=== PATIENT | male | born 1965 | race Two or more races ===

== ENCOUNTER 2016-09-19 00:16 | Emergency (ER) | payer OTHER ==
[2016-09-19 00:28] VITALS: BP 157/90; PULSE 81; TEMP 98.1; BMI 49.5
[2016-09-19] MEDS ORDERED: traMADol HCL 50 MG TABLET PO ONE (01:29)
[2016-09-19] MEDS ORDERED: ACETAMINOPHEN 500 MG TABLET (FP) PO ONE (01:32)
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
[2016-09-19] MEDS ORDERED: traMADol HCL 50 MG TABLET ONE (02:18)
[2016-09-19] MEDS ORDERED: ACETAMINOPHEN 325 MG TABLET (FP) ONE (02:18)
== END 2016-09-19 03:10 | disposition home or self-care (01) ==
LOC: JER 00:16
DX: M25.551 Pain in right hip (principal); E11.22 Type 2 diabetes mellitus with diabetic chronic kidney disease; N18.9 Chronic kidney disease, unspecified; G89.29 Other chronic pain; E66.01 Morbid (severe) obesity due to excess calories; Z68.42 Body mass index [BMI] 45.0-49.9, adult; I50.9 Heart failure, unspecified
CPT/HCPCS: 73523-TC; 99281-25

== ENCOUNTER 2016-09-20 10:20 | Emergency (ER) | payer OTHER ==
[2016-09-20 10:33] VITALS: TEMP 98; BMI 49.5
--- NOTE | 2016-09-20 10:53 | PDOC ---
History of Present Illness - General History Source: Patient Exam Limitations: No Limitations - History of Present Illness Initial Comments: 09/20/16 10:55 The patient is a 50-year-old man, with a significant past medical history of asthma, hypertension, hypercholesterolemia, acute renal insufficiency, stage II chronic kidney disease (not on hemodialysis), congestive heart failure, insulin dependent diabetes mellitus and diabetic neuropathy who presents to the emergency department for further evaluation of hip pain for the past two weeks. No fall, trauma, strenuous activity. He states that his discomfort started out as a soreness that progressively worsened into pain. Patient state that he was in this ED 2 days ago for hip pain and was given Tramadol and discharge. He states that hours after discharge, he was walking to the bathroom of his home, where he felt lightheaded and his left leg gave up and he fell. No head injury, loss of consciousness. His right hip pain is exacerbated when walking and elevating his right leg and his pain is alleviated when lying supine. Does not feel an dizziness now. No fever, chills, weakness, tingling sensations to his extremities. No cough, shortness of breath No chest pain, lightheadedness, dizziness No abdominal pain, nausea, vomiting, diarrhea No urinary complaints. <Jhoana Hendrix - Last Filed: 09/20/16 13:45> <Ozzy Arce - Last Filed: 09/20/16 14:11> - General Chief Complaint: Pain Stated Complaint: HIP PAIN Time Seen by Provider: 09/20/16 10:49 Past History <Jhoana Hendrix - Last Filed: 09/20/16 13:45> - Past Medical History Anemia: No Asthma: Yes Cancer: No Cardiac Disorders: No CVA: No COPD: No CHF: Yes Dementia: No Diabetes: Yes (IDDM/ NEUROPATHY OF ASHLEY FEET) GI Disorders: No Disorders: Yes (ACUTE RENAL INSUFFICIENCY) HTN: Yes Hypercholesterolemia: Yes Liver Disease: No Suicide Attempt (Hx): No Seizures: No Thyroid Disease: No - Surgical History Abdominal Surgery: No Appendectomy: No Cardiac Surgery: No Cholecystectomy: No Lung Surgery: No Neurologic Surgery: No Orthopedic Surgery: Yes (R knee surgery) - Immunization History Immunization Up to Date: No - Psycho/Social/Smoking Cessation Hx Anxiety: No Suicidal Ideation: No Smoking Status: No Smoking History: Never smoked Have you smoked in the past 12 months: No Number of Cigarettes Smoked Daily: 0 Cigars Per Day: 0 Information on smoking cessation initiated: No Hx Alcohol Use: No Drug/Substance Use Hx: No Substance Use Type: None Hx Substance Use Treatment: No <Ozzy Arce - Last Filed: 09/20/16 14:11> - Past Medical History Allergies/Adverse Reactions: Allergies Allergy/AdvReac Type Severity Reaction Status Date / Time No Known Allergies Allergy Verified 09/20/16 10:33 Home Medications: Ambulatory Orders Aspirin [ASA -] 81 mg PO DAILY 07/27/14 Atorvastatin Calcium 40 mg PO HS 04/05/15 Furosemide [Lasix -] 40 mg PO DAILY #30 tablet 07/31/16 Insulin Glargine,Hum.rec.anlog [Toujeo Solostar] 100 unit SQ DAILY #1 insuln.pen 07/31/16 Insulin Lispro [Humalog Kwikpen U-100] 100 unit SQ TID #1 insuln.pen 07/31/16 Losartan Potassium 25 mg PO DAILY #0 07/31/16 Acetaminophen [Tylenol -] 1,000 mg PO Q6H #30 tablet 09/19/16 Oxycodone HCl/Acetaminophen [Percocet 5-325 mg Tablet] 1 tab PO Q4H #12 tablet MDD 6mg 09/19/16 Tramadol HCl 50 mg PO BID PRN #14 tablet MDD 2 09/20/16 Review of Systems - Review of Systems Able to Perform ROS?: Yes Comments:: 09/20/16 10:56 CONSTITUTIONAL: No reported: Fever, Chills, Diaphoresis, Generalized Weakness, Malaise, Loss of Appetite HEENT: No reported: Rhinorrhea, Nasal Congestion, Throat Pain, Throat Swelling, Difficulty Swallowing, Mouth Swelling, Ear Pain, Eye Pain, Visual Changes CARDIOVASCULAR: Reported: Lightheadedness. No reported: Chest Pain, Syncope, Palpitations, Irregular Heart Rate, Peripheral Edema RESPIRATORY: No reported: Cough, Shortness of Breath, SOB with Exertion, Orthopnea, Wheezing , Stridor, Hemoptysis GASTROINTESTINAL: Reported: Nausea. No reported: Abdominal pain, Abdominal Distension, Vomiting, Diarrhea, Constipation, Melena, Hematochezia GENITOURINARY: No reported: Dysuria, Frequency, Urgency, Hesitancy, Flank Pain, Genital Pain MUSCULOSKELETAL: Reported: Chronic Back Pain. Neck Pain. Hip Pain. No reported: Joint Swelling. SKIN: No reported: Rash, Itching, Pallor HEMEATOLOGIC/IMMUNOLOGIC: No reported: Easy Bleeding, Easy Bruising, Lymphadenopathy, Frequent infections ENDOCRINE: No reported: Unexplained Weight Gain, Unexplained Weight Loss, Heat Intolerance , Cold Intolerance NEUROLOGIC: No reported: Headache, Focal Weakness, Paresthesias, Vertigo, Lightheadedness, Unsteady Gait, Seizure, Mental Status Changes, Incontinence PSYCHIATRIC: No reported: Anxiety, Depression <Jhoana Hendrix - Last Filed: 09/20/16 13:45> *Physical Exam - Vital Signs Last Vital Signs Temp Pulse Resp BP Pulse Ox 98 F 105 H 18 104/55 96 09/20/16 10:28 09/20/16 10:28 09/20/16 10:28 09/20/16 10:28 09/20/16 10:28 - Physical Exam Comments: 09/20/16 10:56 GENERAL: The patient is awake, alert, and fully oriented. Morbidly obese. HEAD: Normocephalic, atraumatic. EYES: extraocular movements intact, sclera anicteric, conjunctiva clear. ENT: Normal voice, Moist mucous membranes. NECK: Normal range of motion, supple LUNGS: Breath sounds equal, clear to auscultation bilaterally. No wheezes, no rhonchi, no rales. HEART: Regular rate and rhythm, without murmur, rub or gallop. ABDOMEN: Soft, nontender, normoactive bowel sounds. No guarding, no rebound.No CVA tenderness EXTREMITIES: Normal range of motion of b/l hips/knees, chronic +3 edema. No clubbing or cyanosis. No cords, erythema, or tenderness. PELVIC: Reproducible mild right hip discomfort upon flexion and extension. NEUROLOGICAL: No facial assymetry, Normal speech, PSYCH: Normal mood, normal affect. SKIN: There is an approximately 2 cm x 1 cm open wound on his left great toe over the plantar aspect and it's clean dry, non erythemadous, non foul smelling without discharge <Jhoana Hendrix - Last Filed: 09/20/16 13:45> - Vital Signs Last Vital Signs Temp Pulse Resp BP Pulse Ox 98 F 105 H 18 104/55 96 09/20/16 10:28 09/20/16 10:28 09/20/16 10:28 09/20/16 10:28 09/20/16 10:28 <Ozzy Arce - Last Filed: 09/20/16 14:11> Heart Score/ECG Review - ECG Impressions Comment:: 09/20/16 12:38 Twelve-lead EKG was performed and reviewed by me. There is normal sinus rhythm with a normal rate. Rate of 92 The axis is normal. Incomplete right bundle-branch block There is normal R wave progression There are no ST or T wave abnormalities. <Ozzy Arce - Last Filed: 09/20/16 14:11> ED Treatment Course - LABORATORY CBC & Chemistry Diagram: 09/20/16 11:32 09/20/16 11:32 <Jhoana Hendrix - Last Filed: 09/20/16 13:45> - LABORATORY CBC & Chemistry Diagram: 09/20/16 11:32 09/20/16 11:32 <Ozzy Arce - Last Filed: 09/20/16 14:11> Medical Decision Making - Medical Decision Making 09/20/16 11:10 50y M hx of CKD, chf, dm, HL, htn, presents with atraumatic R hip pain x 2 weeks - pt was seen here 2 days ago and had hip xray that was negative. The patient states he was given some tramadol to go home with, at home, he felt lighehaded and he fell with worsening pain to his right hip. Pt denies any head injury, neck pain, bcak shetty, cp, palptiations, n/v. Pt denies any current dizziness. will give pt a percocet for his pain, will ck labs to r/o anemia/metabolic derangement. 09/20/16 12:39 Patient is feeling improved Able to range his leg comfortably. The patient's labs were reviewed at baseline except for the potassium is slightly elevated 5.5, patient does state that he has been on Kayexalate however he was told to decrease his use as the potassium was fine last time it was checked. I suspect the patient will need to increase his Kayexalate I will discuss with Dr. Castle. The patient as the patient is feeling improved do not feel that further imaging is necessary I will refer to the patient to orthopedics for further evaluation of his hip pain. 09/20/16 13:41 case dw Sera mayspraveenkiki will have pt continue his kayexalate - as pt states he has not had his kayexlate since last week will hve pt fu with dr. castle on tuesday and ortho for further evalutaion of his leg pain. 09/20/16 13:43 I discussed the physical exam findings, ancillary test results and final diagnoses with the patient. I answered all of the patient's questions. The patient was satisfied with the care received and felt comfortable with the discharge plan and treatment plan. The patient will call their primary care physician within 24 hours to arrange follow-up and will return to the Emergency Department with any new, persistent or worsening symptoms. A portion of this note was documented by scribe services under my direction. I have reviewed the details of the note, within reason, and agree with the documentation with the following case summary and management plan written by me <Ozzy Arce - Last Filed: 09/20/16 14:11> *DC/Admit/Observation/Transfer - Attestations Scribe Attestion: 09/20/16 10:57 Documentation prepared by Jhoana Hendrix, acting as medical billing assistant for Ozzy Arce MD. <Jhoana Hendrix - Last Filed: 09/20/16 13:45> - Discharge Dispostion Admit: No <Ozzy Arce - Last Filed: 09/20/16 14:11> Diagnosis at time of Disposition: CKD (chronic kidney disease) stage 3, GFR 30-59 ml/min, Hyperkalemia Hip pain Qualifiers: Laterality: right Qualified Code(s): M25.551 - Pain in right hip - Discharge Dispostion Disposition: HOME Condition at time of disposition: Improved - Prescriptions Prescriptions: Tramadol HCl 50 mg PO BID PRN #14 tablet MDD 2 PRN Reason: Pain - Referrals Referrals: Missy Huerta [Primary Care Provider] - August Castle MD [Staff Physician] - Ganesh Long MD [Staff Physician] - - Patient Instructions Printed Discharge Instructions: DI for Leg Pain, DI for Hyperkalemia Additional Instructions: Return to the emergency department immediately with ANY new, persistent or worsening symptoms. Continue your kayexalate as prescribed You MUST call and follow up with your renal doctor on tuesday for further evaluation of your high potassium. Results were discussed with you. Please make sure your doctor reviews the results of your emergency evaluation. Print Language: ITALIAN
[2016-09-20] MEDS ORDERED: OXYCODONE/APAP 5/325MG COMBO TABLET PO ONE ×2 (11:09→11:14)
[2016-09-20] MEDS ORDERED: OXYCODONE/APAP 5/325MG COMBO TABLET ONE ×2 (11:12→11:14)
[2016-09-20 11:42] LABS: BASOPHIL 0.5 % (0-2.0); EOSINOPHIL 1.8 % (0-4.5); MCH 24.9 pg (25.7-33.7); MCHC 31.4 g/dl (32.0-35.9); MEAN CELL VOLUME 79.5 fl (80-96); MEAN PLT VOLUME 7.7 fl (7.5-11.1); NEUTROPHILS 79.8 % (42.8-82.8); PLATELET COUNT 315 K/MM3 (134-434); RDW 15.8 % (11.9-15.9); WHITE BLOOD COUNT 9.6 K/mm3 (4.0-10.0)
[2016-09-20 12:15] LABS: BILIRUBIN,TOTAL 0.2 mg/dL (0.2-1.0); CALCIUM 8.1 mg/dL (8.5-10.1)
[2016-09-20 13:53] VITALS: BP 96/64; PULSE 100
--- NOTE | 2016-09-21 17:39 | EKG ---
Test Reason : Blood Pressure : / mmHG Vent. Rate : 092 BPM Atrial Rate : 092 BPM P-R Int : 164 ms QRS Dur : 098 ms QT Int : 358 ms P-R-T Axes : 038 -10 065 degrees QTc Int : 442 ms NORMAL SINUS RHYTHM INCOMPLETE RIGHT BUNDLE BRANCH BLOCK BORDERLINE ECG WHEN COMPARED WITH ECG OF 25-JUL-2016 15:33, NO SIGNIFICANT CHANGE WAS FOUND Confirmed by HARMEET CHAU MD ([id number]) on 09/21/2016 5:39:06 PM Referred By: Confirmed By:HARMEET CHAU MD
== END 2016-09-20 14:51 | disposition home or self-care (01) ==
LOC: JER 10:20
DX: I13.0 Hypertensive heart and chronic kidney disease with heart failure and stage 1 through stage 4 chronic kidney disease, or unspecified chronic kidney disease (principal); E11.22 Type 2 diabetes mellitus with diabetic chronic kidney disease; N18.2 Chronic kidney disease, stage 2 (mild); I50.9 Heart failure, unspecified; Z79.4 Long term (current) use of insulin; J45.909 Unspecified asthma, uncomplicated
CPT/HCPCS: 36415; 80053; 85025; 93005; 93010; 99283-25

== ENCOUNTER 2017-11-27 18:33 | Inpatient (IN) | payer OTHER ==
--- NOTE | 2017-11-27 19:23 | PDOC ---
History of Present Illness - General Chief Complaint: Abscess Boil Stated Complaint: PAIN Time Seen by Provider: 11/27/17 19:18 - History of Present Illness Initial Comments: 11/27/17 19:23 52 yo M with a h/o asthma, HTN, HLD, acute renal insufficiency, stage II CKD ( not on hemodialysis), CHF, IDDM who p/w perineal abscess. Patient reports 2 days of sharp, painful growing, perineal firmness, and redness, with absent drainage or discharge noted. Denies trauma to perineal region. Decreased appetite today. Denies F/C, N/V, CP, SOB, abdominal pain, diarrhea, constipation, BPR, urinary complaints, weakness, lightheadedness, sensory changes. Patient with h/o IDDM. Typically takes 100 mg Lantus in AM and 1000 mg Humalaog TID, with last Lantus dose this AM, and last Humalog dose yesterday evening ( 11/26/17). Patient with h/o recurrent abscesses. PMHx: as noted above ROS: as noted above SHx: Denies Etoh, Tobacco, IVDA Allergies: NKDA Past History - Past Medical History Allergies/Adverse Reactions: Allergies Allergy/AdvReac Type Severity Reaction Status Date / Time No Known Allergies Allergy Verified 11/27/17 18:38 Home Medications: Ambulatory Orders Aspirin [ASA -] 81 mg PO DAILY 07/27/14 Furosemide [Lasix -] 40 mg PO DAILY #30 tablet 07/31/16 Insulin Glargine,Hum.rec.anlog [Toujeo Solostar] 100 unit SQ DAILY #1 insuln.pen 07/31/16 Insulin Lispro [Humalog Kwikpen U-100] 100 unit SQ TID #1 insuln.pen 07/31/16 Acetaminophen [Tylenol -] 1,000 mg PO Q6H #30 tablet 09/19/16 Oxycodone HCl/Acetaminophen [Percocet 5-325 mg Tablet] 1 tab PO Q4H #12 tablet MDD 6mg 09/19/16 Anemia: No Asthma: Yes Cancer: No Cardiac Disorders: No CVA: No COPD: No CHF: Yes Dementia: No Diabetes: Yes (IDDM/ NEUROPATHY OF ASHLEY FEET) GI Disorders: No Disorders: Yes (ACUTE RENAL INSUFFICIENCY) HTN: Yes Hypercholesterolemia: Yes Liver Disease: No Seizures: No Thyroid Disease: No - Surgical History Abdominal Surgery: No Appendectomy: No Cardiac Surgery: No Cholecystectomy: No Lung Surgery: No Neurologic Surgery: No Orthopedic Surgery: Yes (R knee surgery) - Immunization History Immunization Up to Date: No - Suicide/Smoking/Psychosocial Hx Smoking Status: No Smoking History: Never smoked Have you smoked in the past 12 months: No Number of Cigarettes Smoked Daily: 0 Cigars Per Day: 0 Hx Alcohol Use: No Drug/Substance Use Hx: No Substance Use Type: None Hx Substance Use Treatment: No Review of Systems - Review of Systems Comments:: 11/27/17 19:22 GENERAL/CONSTITUTIONAL: No fever or chills. No weakness. HEAD, EYES, EARS, NOSE AND THROAT: No change in vision. No ear pain or discharge. No sore throat. CARDIOVASCULAR: No chest pain or shortness of breath RESPIRATORY: No cough, wheezing, or hemoptysis. GASTROINTESTINAL: No nausea, vomiting, diarrhea or constipation. GENITOURINARY: No dysuria, frequency, or change in urination. MUSCULOSKELETAL: No joint or muscle swelling or pain. No neck or back pain. SKIN: + Perineal asbcess. NEUROLOGIC: No headache, vertigo, loss of consciousness, or change in strength/ sensation. ENDOCRINE: No increased thirst. No abnormal weight change HEMATOLOGIC/LYMPHATIC: No anemia, easy bleeding, or history of blood clots. ALLERGIC/IMMUNOLOGIC: No hives or skin allergy. *Physical Exam - Vital Signs Last Vital Signs Temp Pulse Resp BP Pulse Ox 99.9 F H 96 H 19 156/87 98 11/27/17 18:38 11/27/17 18:38 11/27/17 18:38 11/27/17 18:38 11/27/17 18:38 - Physical Exam Comments: 11/27/17 19:23 GENERAL: Awake, alert, and fully oriented, in no acute distress HEAD: No signs of trauma, normocephalic, atraumatic EYES: PERRLA, EOMI, sclera anicteric, conjunctiva clear ENT: Hearing grossly normal, nares patent, oropharynx clear without exudates. Moist mucosa NECK: Normal ROM, supple, no lymphadenopathy, JVD, or masses LUNGS: No distress, speaks full sentences, clear to auscultation bilaterally HEART: Regular rate and rhythm, normal S1 and S2, no murmurs, rubs or gallops, peripheral pulses normal and equal bilaterally. ABDOMEN: Portruberant, Soft, nontender, normoactive bowel sounds. No guarding, no rebound. No masses. Neg CVA ttp. : 4 x 2 area of induration and firmness tracking along perineal region. BL Scrotal erythema, and warmth. Absent streaking, fluctuance, discharge, drainage. Absent inguinal lymphadenopathy. EXTREMITIES : Normal inspection, Normal range of motion, no edema. No clubbing or cyanosis. SKIN: Warm, Dry, normal turgor, no rashes or lesions noted ED Treatment Course - LABORATORY CBC & Chemistry Diagram: 11/27/17 19:50 11/27/17 19:50 Medical Decision Making - Medical Decision Making 11/27/17 19:47 52 yo M with a h/o asthma, HTN, HLD, acute renal insufficiency, stage II CKD ( not on hemodialysis), CHF, IDDM who p/w perineal abscess. Temp 99.9, HR 96. A& Ox3. Patient with perianal induration and evidence of scrotal cellulitis. No evidence of fornier gangrene. Patient will likely require IV antibiotics in setting of poorly controlled IDDM, and recurrent abscess formation. Borderline 2 /4 SIRS criteria/possible sepsis. Patient symptoms will likely not be amenable to outpt. antibiotic treatment. Likely require monitoring for the next 42 hrs. U /S to r/o deep infection. ED Course: CBC,CMP, LA, blood culture EKG Surgical consult WBC: 9.0 11/27/17 20:25 Vanc, Levaquin 11/27/17 21:27 Glu: 400 K+5.1 BUN/Cr: 44/3.2 BNP: 2169 EKG: NSR with incomplete RBBB. Absent PANDA, STD. Nml interval duration or axis. 11/28/17 00:28 Pelvic and Scrotal U/s: 4 x 1.2 x 2.1 cm perineum abscess. + BL hydroceles. Patient admitted to med/surg Dr. Murillo. 11/28/17 01:[address] Martinez. Plan for I&D in AM.
--- NOTE | 2017-11-27 20:02 | PDOC ---
Attending Attestation - Resident Resident Name: Asif Carroll - ED Attending Attestation I have performed the following: I have examined & evaluated the patient, The case was reviewed & discussed with the resident, I agree w/resident's findings & plan - HPI HPI: 11/28/17 05:52 Pt comes with perineal pain and possible abscess. 11/28/17 05:52 Poor control of DM and he has a hx of abscesses. - Physicial Exam PE: 11/28/17 05:52 Agree with resident exam. - Medical Decision Making 11/27/17 21:49 EXAM: Ultrasound scrotal duplex scan scrotal contents HISTORY: Peritoneal abscess COMPARISON: None. FINDINGS: 1. The testicles demonstrate homogeneous echogenicity and are without evidence of a focal mass. Arterial and venous flow is demonstrated in both testicles. No ultrasound evidence of testicular torsion. 2. Bilateral hydroceles. 3. There is a heterogeneous hypoechoic collection in the left perineum in the region of the abscess. This measures approximately 4 cm x 1.2 cm x 2.1 cm in size. This contains some internal vascularity. This may represent an area of phlegmonous change. CT through this region with IV contrast may be helpful for further evaluation. THIS DOCUMENT HAS BEEN ELECTRONICALLY SIGNED 11/28/17 01:31 Patient Name: HONORIO TOVAR THIS IS A PRELIMINARY REPORT FROM [facility] DATE OF SERVICE: 2017-11-28 00:38:09 IMAGES: [id number] EXAM: CT PELVIS CT WITHOUT CONTRAST HISTORY: Abscess COMPARISON: None. FINDINGS: There is sclerosis in the right iliac adjacent to the sacroiliac articulation. There is no fracture, or dislocation. Prostate appears normal. Rectum appears normal. Bladder appears normal. Appendix is visualized and appears normal. There are enlarged inguinal lymph nodes bilaterally. The largest node is on the left and measures 3.5 x 1.9 cm. There are some enlarged lymph nodes in the pelvic sidewalls IMPRESSION: Inguinal and pelvic sidewall lymph node enlargement suggests inflammation. Right sacroiliitis
[2017-11-27 20:03] LABS: BASO % 0.4 % (0-2.0); EOS % 2.9 % (0-4.5); HEMATOCRIT 32.2 % (35.4-49); HEMOGLOBIN 10.5 GM/dL (11.7-16.9); LYMPH % 13.1 % (8-40); MCH 26.8 pg (25.7-33.7); MCHC 32.4 g/dl (32.0-35.9); MEAN CELL VOLUME 82.6 fl (80-96); MEAN PLT VOLUME 8.4 fl (7.5-11.1); NEUT % 74.6 % (42.8-82.8); PLATELET COUNT 231 K/MM3 (134-434); RBC 3.91 M/mm3 (4.00-5.60); RDW 15.5 % (11.9-15.9)
[2017-11-27] MEDS ORDERED: VANCOMYCIN 1,500 MG in DEXTROSE 5%-WATER - 250 ML IVPB ONE (20:20)
[2017-11-27 20:34] LABS: ALK PHOS 121 U/L (45-117); ANION GAP 9 (8-16); BILIRUBIN,TOTAL 0.2 mg/dL (0.2-1.0); BLOOD UREA NITROGEN 44 mg/dL (7-18); CALCIUM 7.8 mg/dL (8.5-10.1); CHLORIDE 106 mmol/L (98-107); CO2 22 mmol/L (21-32); CREATININE 3.2 mg/dL (0.7-1.3); POTASSIUM 5.1 mmol/L (3.5-5.1); SGOT/AST 8 U/L (15-37); SGPT/ALT 14 U/L (12-78); SODIUM 137 mmol/L (136-145); TOT PROT 5.7 g/dl (6.4-8.2)
[2017-11-27] MEDS ORDERED: VANCOMYCIN 1,500 MG in DEXTROSE 5%-WATER - 500 ML IVPB ONE (20:34)
[2017-11-27 20:38] LABS: N-TERMINAL BNP 2169.85 pg/ml (5-125)
[2017-11-27 20:39] LABS: GLUCOSE,RANDOM 400 mg/dL (74-106)
[2017-11-27] MEDS ORDERED: INSULIN REGULAR HUMAN 100 UNITS/ML *VIAL IVPUSH ONE (21:16)
[2017-11-27 21:46] LABS: URINE APPEARANCE CLEAR; URINE BILIRUBIN NEGATIVE (<2.0 mg/dL); URINE COLOR LTYELLOW; URINE GLUCOSE (UA) 3+ (NEGATIVE); URINE KETONE NEGATIVE (NEGATIVE); URINE LEUK ESTERASE NEGATIVE (NEGATIVE); URINE NITRITE NEGATIVE (NEGATIVE); URINE UROBILINOGEN NEGATIVE mg/dL (0.2-1.0)
[2017-11-27 21:47] LABS: URINE PROTEIN 3+ (NEGATIVE)
[2017-11-27 21:53] LABS: EPI CELLS RARE /HPF (FEW); URINE BACTERIA RARE /hpf (NONE SEEN); URINE MUCUS RARE
--- NOTE | 2017-11-28 00:15 | PN ---
Teaching Attending Note Name of Resident: Vic Jimenes ATTENDING PHYSICIAN STATEMENT I saw and evaluated the patient. I reviewed the resident's note and discussed the case with the resident. I agree with the resident's findings and plan as documented. SUBJECTIVE: Patient is a 52 year old man with history of asthma, HTN, HLD, CKD stage III, CHF, MRSA, recurrent abscesses, Insulin-treated DM, who presents with a perineal abscess. Patient reports two days of sharp, painful growing, perineal firmness, and redness, with absent drainage or discharge noted. Denies trauma to perineal region, fever or chills. OBJECTIVE: Obese. Alert and in no acute distress. Vital Signs Period Temp Pulse Resp BP Sys/Swartz Pulse Ox Last 24 Hr 99.9 F 96 19 156/87 98 HEENT: No Jaundice, eye redness or discharge, PERRLA, EOMI. Normocephalic, atraumatic. External ears are normal and hearing is grossly intact. No nasal discharge. Neck: Supple, nontender. No palpable adenopathy or thyromegaly. No JVD Chest: Good effort. Clear to auscultation and percussion. Heart: Regular. No S3, rub or murmur Abdomen: Not distended, soft, nontender and no HSM. No rebound or guarding. Normoactive bowel sounds. Ext: Perineal abscess with surrounding erythema to the upper thighs and buttocks , tender; scrotal edema with hydrocele. Peripheral pulses intact. No leg edema. Skin: Warm and dry. No petechiae, rash or ecchymosis. Neuro: Alert. Oriented x3. CN 2-12 grossly intact. Sensation grossly intact in all four extremities and DTR are symmetric. Home Medications Medication Instructions Recorded Aspirin [ASA -] 81 mg PO DAILY 07/27/14 Furosemide [Lasix -] 40 mg PO DAILY #30 tablet 07/31/16 Insulin Glargine,Hum.rec.anlog 100 unit SQ DAILY #1 insuln.pen 07/31/16 [Toujeo Solostar] Insulin Lispro [Humalog Kwikpen 100 unit SQ TID #1 insuln.pen 07/31/16 U-100] Acetaminophen [Tylenol -] 1,000 mg PO Q6H #30 tablet 09/19/16 Oxycodone HCl/Acetaminophen 1 tab PO Q4H #12 tablet MDD 6mg 09/19/16 [Percocet 5-325 mg Tablet] Abnormal Lab Results 11/27/17 11/27/17 11/27/17 19:50 19:50 19:50 RBC 3.91 L Hgb 10.5 L D Hct 32.2 L BUN 44 H Creatinine 3.2 H Random Glucose 400 H* D Calcium 7.8 L AST 8 L Alkaline Phosphatase 121 H B-Natriuretic Peptide 2169.85 H Total Protein 5.7 L Albumin 2.0 L Urine Protein Urine Glucose (UA) 11/27/17 21:20 RBC Hgb Hct BUN Creatinine Random Glucose Calcium AST Alkaline Phosphatase B-Natriuretic Peptide Total Protein Albumin Urine Protein 3+ H Urine Glucose (UA) 3+ H Current Medications Generic Name Dose Route Start Last Admin Trade Name Freq PRN Reason Stop Dose Admin Acetaminophen 650 mg 11/28/17 01:49 11/28/17 01:52 Tylenol - PO 650 mg Q4H PRN Administration fever or pain level 1-5 Aspirin 81 mg 11/28/17 10:00 Asa - PO DAILY [facility] Atorvastatin Calcium 40 mg 11/28/17 22:00 Lipitor - PO HS [facility] Furosemide 40 mg 11/28/17 10:00 Lasix - PO DAILY [facility] Heparin Sodium (Porcine) 5,000 unit 11/28/17 06:00 Heparin - SQ TID [facility] Hydralazine HCl 25 mg 11/28/17 06:00 Apresoline - PO TID [facility] Sodium Chloride 1,000 mls @ 75 mls/hr 11/28/17 01:45 11/28/17 02:20 Normal Saline - IV 75 mls/hr ASDIR [facility] Administration Clindamycin Phosphate 600 mg in 50 mls @ 100 mls/hr 11/28/17 09:00 Cleocin 600 Mg Premix Ivpb - IVPB Q6H-IV [facility] Protocol Levofloxacin 500 mg in 100 mls @ 100 mls/hr 11/28/17 20:00 Levaquin 500 Mg Premixed Ivpb - IVPB DAILY@1999 [facility] Protocol Insulin Aspart 1 vial 11/28/17 07:00 Novolog Vial Sliding Scale - SQ ACHS [facility] Protocol Insulin Detemir 40 units 11/28/17 22:00 Levemir Vial SQ [facility] ASSESSMENT AND PLAN: 1. Perineal abscess - Evident on CT scan. Patient started on clindamycin and levaquin. Has history of MRSA. Surgery consulted for I&D. Use warm compress in the meantime and tylenol for pain control. 2. CKD - Likely due to diabetic nephropathy in view of associated proteinuria. Consult nephrology for further workup and avoid nephrotoxins. Not using vancomycin for now due to CKD 3. DM - Will start 40 U QD of detemir and use sliding scale in the first 24 hours to ascertain appropriate insulin dose and avoid hypoglycemia. Once stable , will need to add an ARB to his regimen to target both hypertension and proteinuria. 4. Hydrocele - Use scrotal sling to elevate and consult urology. 5. Anemia - Likely multifactorial including CKD, chronic inflammation. Check stool guaiac and iron studies. 6. DVT prophylaxis - Heparin 5000u sq tid 7. Advance directives - Full code
--- NOTE | 2017-11-28 00:33 | HP ---
CHIEF COMPLAINT: perineal abscess x 3 days PCP: Dr. Corby Huerta HISTORY OF PRESENT ILLNESS: 52M w/ hx of recurrent abscesses, NIDDM, CKD, asthma, HTN, HLD, lower back pain , and CHF who presents with a perineal abscess for the past 3 days. Per pt, he first noticed it 3 days ago in his perineal area. Since then, it has become progressively painful, larger, firmer, and erythematous. He states that the pain is worsened by walking. He took an old prescription of doxycyline q12h for the past 2 days without improvement. He endorses an episode of nausea and NBNB emesis and an episode of diarrhea 2 days ago, but states that he occasionally gets that and it isn't unusual for him. Pt reports medication non-adherence, only taking certain medications when he feels that he needs them. He denies fevers, chills, chest pain, SOB, abdominal pain, constipation, dysuria, drainage from abscess, and prior trauma to area. Of note, pt had 2 prior episodes of abscesses. One was located in his right groin, and another in his gluteal cleft. One was treated with an I&D, and the other was treated with abx and warm compresses. ER course was notable for: (1) history (2) physical (3) imaging Recent Travel: denies PAST MEDICAL HISTORY: as stated above PAST SURGICAL HISTORY: right knee ligament I&D for abscess diabetic wound debridement in left foot Social History: Smoking: denies Alcohol: denies Drugs: denies Pt lives in [place] with his mother, sister, and son. 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 Family History: mother- HTN father- DM Allergies No Known Allergies Allergy (Verified 11/27/17 18:38) HOME MEDICATIONS: Home Medications Medication Instructions Recorded Aspirin [ASA -] 81 mg PO DAILY 07/27/14 Furosemide [Lasix -] 40 mg PO DAILY #30 tablet 07/31/16 Insulin Glargine,Hum.rec.anlog 100 unit SQ DAILY #1 insuln.pen 07/31/16 [Toujeo Solostar] Insulin Lispro [Humalog Kwikpen 100 unit SQ TID #1 insuln.pen 07/31/16 U-100] Acetaminophen [Tylenol -] 1,000 mg PO Q6H #30 tablet 09/19/16 Oxycodone HCl/Acetaminophen 1 tab PO Q4H #12 tablet MDD 6mg 09/19/16 [Percocet 5-325 mg Tablet] REVIEW OF SYSTEMS CONSTITUTIONAL: Absent: fever, chills, diaphoresis, generalized weakness, malaise, loss of appetite, weight change HEENT: Absent: rhinorrhea, nasal congestion, throat pain, throat swelling, difficulty swallowing, mouth swelling, ear pain, eye pain, visual changes CARDIOVASCULAR: Absent: chest pain, syncope, palpitations, irregular heart rate, lightheadedness , peripheral edema RESPIRATORY: Absent: cough, shortness of breath, dyspnea with exertion, orthopnea, wheezing, stridor, hemoptysis GASTROINTESTINAL: Absent: abdominal pain, abdominal distension, constipation, melena, hematochezia present: nausea, emesis, diarrhea GENITOURINARY: Absent: dysuria, frequency, urgency, hesitancy, hematuria, flank pain, present: perineal pain MUSCULOSKELETAL: Absent: myalgia, arthralgia, joint swelling, back pain, neck pain SKIN: Absent: itching, pallor present: rash HEMATOLOGIC/IMMUNOLOGIC: Absent: easy bleeding, easy bruising, lymphadenopathy, frequent infections ENDOCRINE: Absent: unexplained weight gain, unexplained weight loss, heat intolerance, cold intolerance NEUROLOGIC: Absent: headache, focal weakness or paresthesias, dizziness, unsteady gait, seizure, mental status changes, bladder or bowel incontinence PSYCHIATRIC: Absent: anxiety, depression, suicidal or homicidal ideation, hallucinations. PHYSICAL EXAMINATION Vital Signs - 24 hr 11/27/17 18:38 Temperature 99.9 F H Pulse Rate 96 H Respiratory 19 Rate Blood Pressure 156/87 O2 Sat by Pulse 98 Oximetry (%) GENERAL: middle aged obese male, lying in bed on side, in NAD HEENT: NC, AT LUNGS: Breath sounds equal, clear to auscultation bilaterally. No wheezes, and no crackles. No accessory muscle use. HEART: Regular rate and rhythm, normal S1 and S2 without murmur, rub or gallop. ABDOMEN: obese, soft, NT, normoactive BS : swollen testicles, 10cm x 3cm erythematous abscess, non-fluctuant, tender to palpation, without drainage, with surrounding erythema to medial thighs and buttocks MUSCULOSKELETAL: 1+ pitting edema in b/l LEs NEUROLOGICAL: Cranial nerves II-XII intact. Normal speech. Laboratory Results - last 24 hr 11/27/17 11/27/17 11/27/17 19:50 19:50 19:50 WBC 9.0 RBC 3.91 L Hgb 10.5 L D Hct 32.2 L MCV 82.6 MCH 26.8 MCHC 32.4 RDW 15.5 Plt Count 231 D MPV 8.4 Absolute Neuts (auto) 6.7 Neutrophils % 74.6 Lymphocytes % 13.1 D Monocytes % 9.0 Eosinophils % 2.9 Basophils % 0.4 Nucleated RBC % 0 Sodium 137 Potassium 5.1 Chloride 106 Carbon Dioxide 22 Anion Gap 9 BUN 44 H Creatinine 3.2 H Creat Clearance w eGFR 20.66 Random Glucose 400 H* D Lactic Acid 0.9 Calcium 7.8 L Total Bilirubin 0.2 AST 8 L ALT 14 Alkaline Phosphatase 121 H Creatine Kinase Troponin I B-Natriuretic Peptide Total Protein 5.7 L Albumin 2.0 L Urine Color Urine Appearance Urine pH Ur Specific [place] Urine Protein Urine Glucose (UA) Urine Ketones Urine Blood Urine Nitrite Urine Bilirubin Urine Urobilinogen Ur Leukocyte Esterase Urine WBC (Auto) Urine RBC (Auto) Ur Epithelial Cells Urine Bacteria Urine Mucus 11/27/17 11/27/17 19:50 21:20 WBC RBC Hgb Hct MCV MCH MCHC RDW Plt Count MPV Absolute Neuts (auto) Neutrophils % Lymphocytes % Monocytes % Eosinophils % Basophils % Nucleated RBC % Sodium Potassium Chloride Carbon Dioxide Anion Gap BUN Creatinine Creat Clearance w eGFR Random Glucose Lactic Acid Calcium Total Bilirubin AST ALT Alkaline Phosphatase Creatine Kinase 77 Troponin I < 0.02 D B-Natriuretic Peptide 2169.85 H Total Protein Albumin Urine Color Ltyellow Urine Appearance Clear Urine pH 5.0 Ur Specific [place] 1.014 Urine Protein 3+ H Urine Glucose (UA) 3+ H Urine Ketones Negative Urine Blood Negative Urine Nitrite Negative Urine Bilirubin Negative Urine Urobilinogen Negative Ur Leukocyte Esterase Negative Urine WBC (Auto) 5 Urine RBC (Auto) <1 Ur Epithelial Cells Rare Urine Bacteria Rare Urine Mucus Rare Scrotum US: bl hydroceles, heterogeneous hypoechoic collection (4 x 1.2 x 2.1cm ) in left perineum in region of abscess containing some internal vascularity, possibly an area of phlegmonous change. Rec CT w/ contrast. ASSESSMENT/PLAN: 52M w/ hx of recurrent abscesses, NIDDM, CKD, asthma, HTN, HLD, lower back pain , and CHF who presents with a perineal abscess for the past 3 days. #perineal abscess with surrounding cellulitis -does not meet SIRS criteria yet. has temp of 99.9, HR of 96, no leukocytosis. -f/u CT pelvis w/ contrast -received dose of levaquin 750 and vancomycin 1500 in ED -pain control with tylenol PRN -IV abx: clindamycin 600mg q6h and levaquin 500mg daily -consult surgery, Dr. Martinez, f/u recs -wound cx -f/u Bcx -NS @ 75cc/hr #IDDM -levemir 40U HS, uptitrate as needed -BGM and ISS ACHS -f/u Hgb a1c #CKD -creatinine of 3.2, at baseline -pt does not know home med, please confirm all home meds #HTN -pt does not know home med, please confirm all home meds -started on hydralazine 25mg TID #HLD -pt does not know home med, please confirm all home meds -started on lipitor 40mg daily #CHF -continue home lasix 40 daily #anemia -Hgb of 10.5, baseline of 8-9 likely 2/2 CKD in setting of DM and HTN -f/u iron studies, FOBT #severe morbid obesity -nutrition consult #b/l hydroceles -as shown on testicular US -f/u outpatient #lower back pain -please confirm home dose and frequency of percocet -tylenol PRN for now #FEN/ppx -NS @ 75cc/hr -electrolytes wnl -NPO for possible procedure -no GI ppx indicated -heparin 5000 TID #Dispo -admit to med/surg Case discussed with attending, Dr. Murillo. -Vic Jimenes MD PGY1 Visit type - Emergency Visit Emergency Visit: Yes Care time: The patient presented to the Emergency Department on the above date and was hospitalized for further evaluation of their emergent condition. - New Patient This patient is new to me today: Yes Date on this admission: 11/28/17 - Critical Care Critical Care patient: No Hospitalist Screening - Colonoscopy Questionnaire Colonoscopy Questionnaire: Colonoscopy Questionnaire - Patient: 50 - 75 years old and never had a screening colonoscopy: Unknown History of colon or rectal polyps, or CA: Unknown History of IBD, Crohn's disease or UC: Unknown History of abdominal radiation therapy as a child: Unknown - Relative: 1 with colon or rectal CA, or polyps at age 60 or younger: Unknown Colon or rectal CA diagnosed at age 45 or younger: Unknown Multiple relatives with colon or rectal CA: Unknown - Outcome: Screening Result: Negative Screen
[2017-11-28] MEDS ORDERED: INSULIN REGULAR HUMAN 100 UNITS/ML *VIAL ONE (01:01)
[2017-11-28] MEDS ORDERED: ACETAMINOPHEN 325 MG TABLET (FP) PO PRN ×3 (01:33→13:40)
[2017-11-28] MEDS ORDERED: ACETAMINOPHEN 325 MG TABLET (FP) ONE (01:43)
[2017-11-28] MEDS ORDERED: SODIUM CHLORIDE 1,000 ML IV SCH (01:45)
[2017-11-28] MEDS ORDERED: traMADol HCL 50 MG TABLET PO ONE (03:59)
[2017-11-28] MEDS ORDERED: HEPARIN NA (PORCINE) 5,000 UNITS/ML 1ML VIAL SQ SCH (06:00)
[2017-11-28] MEDS ORDERED: hydrALAZINE HCL 25 MG TABLET (FP) PO SCH (06:00)
[2017-11-28] MEDS: INSULIN SLIDING SCALE (NOVOLOG) 1 VIAL SQ SCH ×4 (06:36→21:08)
[2017-11-28] MEDS ORDERED: INSULIN (NOVOLOG) ASPART 100 UNITS/ML 10ML VIAL ONE (07:08)
[2017-11-28 08:43] LABS: BASO % 0.3 % (0-2.0); EOS % 2.1 % (0-4.5); HEMATOCRIT 29.1 % (35.4-49); HEMOGLOBIN 9.4 GM/dL (11.7-16.9); LYMPH % 17.3 % (8-40); MCH 26.8 pg (25.7-33.7); MCHC 32.5 g/dl (32.0-35.9); MEAN CELL VOLUME 82.6 fl (80-96); MEAN PLT VOLUME 8.7 fl (7.5-11.1); MONO % 10.7 % (3.8-10.2); NEUT % 69.6 % (42.8-82.8); PLATELET COUNT 235 K/MM3 (134-434); RBC 3.52 M/mm3 (4.00-5.60); RDW 15.6 % (11.9-15.9); WHITE BLOOD COUNT 8.8 K/mm3 (4.0-10.0)
--- NOTE | 2017-11-28 08:47 | EKG ---
Test Reason : Blood Pressure : / mmHG Vent. Rate : 084 BPM Atrial Rate : 084 BPM P-R Int : 138 ms QRS Dur : 100 ms QT Int : 378 ms P-R-T Axes : 049 -27 088 degrees QTc Int : 446 ms NORMAL SINUS RHYTHM INCOMPLETE RIGHT BUNDLE BRANCH BLOCK BORDERLINE ECG WHEN COMPARED WITH ECG OF 20-SEP-2016 11:25, NO SIGNIFICANT CHANGE WAS FOUND Confirmed by ALEJA BOONE MD ([id number]) on 11/28/2017 8:46:57 AM Referred By: Confirmed By:ALEJA BOONE MD
[2017-11-28] MEDS ORDERED: CLINDAMYCIN 600MG PREMIX IVPB 600 MG/50 ML BAG IVPB SCH ×2 (09:00→15:00)
[2017-11-28 09:05] LABS: INR 1.18 (0.82-1.09); PROTHROMBIN TIME (PATIENT) 13.3 SEC (9.7-13.0)
[2017-11-28 09:06] LABS: ACTIVATED PTT 34.4 SECONDS (26.9-34.4)
[2017-11-28 09:12] LABS: CHLORIDE 109 mmol/L (98-107); POTASSIUM 4.5 mmol/L (3.5-5.1); SODIUM 136 mmol/L (136-145)
[2017-11-28 09:27] LABS: ALBUMIN 1.8 g/dl (3.4-5.0); ALK PHOS 98 U/L (45-117); ANION GAP 9 (8-16); BILIRUBIN,TOTAL 0.2 mg/dL (0.2-1.0); BLOOD UREA NITROGEN 44 mg/dL (7-18); CALCIUM 7.4 mg/dL (8.5-10.1); CO2 18 mmol/L (21-32); CREATININE 2.9 mg/dL (0.7-1.3); GLUCOSE,RANDOM 230 mg/dL (74-106); SGOT/AST 7 U/L (15-37); SGPT/ALT 14 U/L (12-78); TOT PROT 5.2 g/dl (6.4-8.2)
[2017-11-28] MEDS ORDERED: DEXTROSE 5%-WATER - 50 ML IVPB ONE ×3 (09:37→20:36)
[2017-11-28] MEDS ORDERED: cefTRIAXone SODIUM 1 GM VIAL ONE (09:37)
[2017-11-28] MEDS ORDERED: CEFTRIAXONE 1 GM in DEXTROSE 5%-WATER - 50 ML IVPB SCH (10:00)
[2017-11-28] MEDS ORDERED: ASPIRIN 81 MG CHEWABLE TABLETS PO SCH (10:00)
[2017-11-28] MEDS ORDERED: FUROSEMIDE 40 MG TABLET (FP) PO SCH (10:00)
--- NOTE | 2017-11-28 10:56 | CONSULT ---
Consult Consult Specialty:: Surgery Reason for Consultation:: Perineal abscess - History of Present Illness Chief Complaint: perineal pain, swelling, and tenderness History of Present Illness: 52M w/ hx of recurrent abscesses, NIDDM, CKD, asthma, HTN, HLD, lower back pain , and CHF who presents with a perineal abscess for the past 3 days. Per pt, he first noticed it 3 days ago in his perineal area. Since then, it has become progressively painful, larger, firmer, and erythematous. He states that the pain is worsened by walking. He took an old prescription of doxycyline q12h for the past 2 days without improvement. He endorses an episode of nausea and NBNB emesis and an episode of diarrhea 2 days ago, but states that he occasionally gets that and it isn't unusual for him. Pt reports medication non-adherence, only taking certain medications when he feels that he needs them. He denies fevers, chills, chest pain, SOB, abdominal pain, constipation, dysuria, drainage from abscess, and prior trauma to area. Of note, pt had 2 prior episodes of abscesses. One was located in his right groin, and another in his gluteal cleft. One was treated with an I&D, and the other was treated with abx and warm compresses. - History Source History Provided By: Patient - Past Medical History Cardio/Vascular: Yes: HTN, Hyperlipdemia Pulmonary: Yes: Asthma, Other (chronic cough (nonproductive) x1 year) Gastrointestinal: Yes: Other (obesity) Renal/: Yes: Renal Inusuff (CKD baseline Creatinine 1.8), Other (urinary obstruction) Infectious Disease: Yes: MRSA (right buttock abscess several years ago), Other ( osteomyelitis) Endocrine: Yes: Diabetes Mellitus, Other (DM with neuropathy) - Past Surgical History Additional Surgical History: I & D of buttock and julianne abscesses - Alcohol/Substance Use Hx Alcohol Use: No History of Substance Use: reports: None - Smoking History Smoking history: Never smoked Have you smoked in the past 12 months: No Aproximately how many cigarettes per day: 0 - Social History Usual Living Arrangement: With Child ADL: 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 History of Recent Travel: No Home Medications - Allergies Allergies/Adverse Reactions: Allergies Allergy/AdvReac Type Severity Reaction Status Date / Time No Known Allergies Allergy Verified 11/27/17 18:38 - Home Medications Home Medications: Ambulatory Orders Aspirin [ASA -] 81 mg PO DAILY 07/27/14 Furosemide [Lasix -] 40 mg PO DAILY #30 tablet 07/31/16 Insulin Glargine,Hum.rec.anlog [Toujeo Solostar] 100 unit SQ DAILY #1 insuln.pen 07/31/16 Insulin Lispro [Humalog Kwikpen U-100] 100 unit SQ TID #1 insuln.pen 07/31/16 Acetaminophen [Tylenol -] 1,000 mg PO Q6H #30 tablet 09/19/16 Oxycodone HCl/Acetaminophen [Percocet 5-325 mg Tablet] 1 tab PO Q4H #12 tablet MDD 6mg 09/19/16 Family Disease History - Family Disease History Family Disease History: Diabetes: Father ( 50s cycling accident), Other: Mother (alive HTN), Sister (healthy and living) Review of Systems - Review of Systems Eyes: reports: No Symptoms HENT: reports: No Symptoms, Epistaxis Neck: reports: No Symptoms Cardiovascular: reports: No Symptoms Respiratory: reports: No Symptoms Genitourinary: reports: No Symptoms Integumentary: reports: Other (perineal pain between scrotum and anus) Physical Exam Vital Signs: Vital Signs Temperature 98.8 F 11/28/17 06:00 Pulse Rate 82 11/28/17 06:00 Respiratory Rate 18 11/28/17 06:00 Blood Pressure 131/77 11/28/17 06:00 O2 Sat by Pulse Oximetry (%) 97 11/28/17 02:31 Constitutional: Yes: Obese Eyes: Yes: Conjunctiva Clear HENT: Yes: Normocephalic Neck: Yes: Supple Cardiovascular: Yes: Regular Rate and Rhythm Respiratory: Yes: CTA Bilaterally Gastrointestinal: Yes: Soft, Abdomen, Obese ...Rectal Exam: Yes: Deferred Integumentary: Yes: Other (6 x 3 cm edema and tenderness with erythema and induration of median raphe of the perineum) Neurological: Yes: Alert, Oriented Psychiatric: Yes: Alert, Oriented Labs: CBC, BMP 11/28/17 07:00 11/28/17 07:00 Imaging - Results Cat Scan: Report Reviewed, Image Reviewed Ultrasound: Report Reviewed, Image Reviewed Problem List - Problems (1) Perineal abscess Assessment/Plan: I & D of perineal abscess IV antibiotics tight blood glucose control Code(s): L02.215 - CUTANEOUS ABSCESS OF PERINEUM (2) Abscess Code(s): L02.91 - CUTANEOUS ABSCESS, UNSPECIFIED
[2017-11-28] MEDS ORDERED: MIDAZOLAM HCL 2 MG/2 ML SINGLE DOSE VIAL ONE ×2 (11:48)
[2017-11-28] MEDS ORDERED: LIDOCAINE 1%/EPI 1:100000 (20 ML MULTI DOSE VIAL) ONE (11:59)
[2017-11-28] MEDS ORDERED: PROPOFOL 20 ML ONE (12:00)
[2017-11-28] MEDS ORDERED: cefTRIAXone SODIUM 1 GM VIAL IVPB ONE (12:13)
[2017-11-28] MEDS ORDERED: DEXAMETHASONE SOD PHOSPHATE 4 MG/1 ML VIAL ONE (12:15)
--- NOTE | 2017-11-28 12:38 | OP ---
Operative Note - Note: Operative Date: 11/28/17 Pre-Operative Diagnosis: Perineal abscess Operation: I & D perineal abscess Findings: 7 x 3 cm median raphe abscess with 1 x 2 cm necrtic subcutaneous tissue Post-Operative Diagnosis: Same as Pre-op Surgeon: Jonah Martinez Anesthesia: General (LMA) Operative Report Dictated: Yes
[2017-11-28] MEDS ORDERED: oxyCODONE HCL 5 MG TABLET PO PRN (12:42)
[2017-11-28] MEDS ORDERED: ONDANSETRON 4 MG/2 ML VIAL IVPUSH PRN (12:42)
[2017-11-28] MEDS ORDERED: LACTATED RINGERS SOLUTION 1,000 ML IV SCH (13:00)
--- NOTE | 2017-11-28 13:03 | CONSULT ---
Consult Consult Specialty:: Nephrology Reason for Consultation:: CKD - History of Present Illness Chief Complaint: perineal pain History of Present Illness: Pt is a 52 year old male with pmhd of CKD stage 4, HTN, HLD, asthma, obesity, CHF, and DM who presents with perineal pain and was found to have an abscess. He was take for I and D. I was called to evaluate him for CKD as he has elevated creatinine. He denies shortness of breath. He denies worsening of her lower ext edema. He denies nsaid use. He says he has been compliant with meds. He follows with Dr Castle in the office. He denies dysuria or hematuria. - History Source History Provided By: Patient - Past Medical History Cardio/Vascular: Yes: HTN, Hyperlipdemia Pulmonary: Yes: Asthma, Other (chronic cough (nonproductive) x1 year) Gastrointestinal: Yes: Other (obesity) Renal/: Yes: Renal Inusuff (CKD baseline Creatinine 1.8), Other (urinary obstruction) Infectious Disease: Yes: MRSA (right buttock abscess several years ago), Other ( osteomyelitis) Endocrine: Yes: Diabetes Mellitus, Other (DM with neuropathy) - Past Surgical History Additional Surgical History: I & D of buttock and julianne abscesses - Alcohol/Substance Use Hx Alcohol Use: No History of Substance Use: reports: None - Smoking History Smoking history: Never smoked Have you smoked in the past 12 months: No Aproximately how many cigarettes per day: 0 - Social History Usual Living Arrangement: With Child ADL: 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 History of Recent Travel: No Home Medications - Allergies Allergies/Adverse Reactions: Allergies Allergy/AdvReac Type Severity Reaction Status Date / Time No Known Allergies Allergy Verified 11/27/17 18:38 - Home Medications Home Medications: Ambulatory Orders Aspirin [ASA -] 81 mg PO DAILY 07/27/14 Furosemide [Lasix -] 40 mg PO DAILY #30 tablet 07/31/16 Insulin Glargine,Hum.rec.anlog [Toujeo Solostar] 100 unit SQ DAILY #1 insuln.pen 07/31/16 Insulin Lispro [Humalog Kwikpen U-100] 100 unit SQ TID #1 insuln.pen 07/31/16 Acetaminophen [Tylenol -] 1,000 mg PO Q6H #30 tablet 04/02/17 Oxycodone HCl/Acetaminophen [Percocet 5-325 mg Tablet] 1 tab PO Q4H #12 tablet MDD 6mg 09/19/16 Family Disease History - Family Disease History Family Disease History: Diabetes: Father ( 50s cycling accident), Other: Mother (alive HTN), Sister (healthy and living) Review of Systems - Review of Systems Constitutional: denies: Chills, Fever Eyes: reports: No Symptoms HENT: reports: No Symptoms Neck: reports: No Symptoms Cardiovascular: reports: Edema Respiratory: reports: SOB on Exertion Gastrointestinal: reports: No Symptoms Genitourinary: reports: Other (perineal abscess) Musculoskeletal: reports: No Symptoms Integumentary: reports: No Symptoms Neurological: reports: No Symptoms Endocrine: reports: No Symptoms Hematology/Lymphatic: reports: No Symptoms Physical Exam Vital Signs: Vital Signs Temperature 98.9 F 11/28/17 10:00 Pulse Rate 82 11/28/17 10:00 Respiratory Rate 18 11/28/17 10:00 Blood Pressure 147/79 11/28/17 10:00 O2 Sat by Pulse Oximetry (%) 97 11/28/17 09:00 Constitutional: Yes: Calm Eyes: Yes: Conjunctiva Clear HENT: Yes: Atraumatic Neck: Yes: Supple Cardiovascular: Yes: S1, S2 Respiratory: Yes: CTA Bilaterally Gastrointestinal: Yes: Soft, Abdomen, Obese Renal/: Yes: WNL, Other (perineal abbscess) Edema: Yes Edema: LLE: 1+, RLE: 1+ Neurological: Yes: Oriented Psychiatric: Yes: Oriented Labs: CBC, BMP 11/28/17 07:00 11/28/17 07:00 Laboratory Tests 07/28/16 07/29/16 07/31/16 08:20 06:00 06:00 Hgb Creatinine 3.1 H 3.4 H 3.8 H Urine Protein Urine Blood 09/20/16 11/27/17 11/27/17 11:32 19:50 19:50 Hgb 10.5 L D Creatinine 3.0 H D 3.2 H Urine Protein Urine Blood 11/27/17 11/28/17 11/28/17 21:20 07:00 07:00 Hgb 9.4 L D Creatinine 2.9 H Urine Protein 3+ H Urine Blood Negative Imaging - Results Ultrasound: Report Reviewed Problem List - Problems (1) Perineal abscess Code(s): L02.215 - CUTANEOUS ABSCESS OF PERINEUM (2) Anemia in chronic kidney disease (CKD) Code(s): N18.9 - CHRONIC KIDNEY DISEASE, UNSPECIFIED; D63.1 - ANEMIA IN CHRONIC KIDNEY DISEASE (3) CHF (congestive heart failure) Code(s): I50.9 - HEART FAILURE, UNSPECIFIED Qualifiers: Qualified Code(s): I50.9 - Heart failure, unspecified (4) CKD (chronic kidney disease) stage 3, GFR 30-59 ml/min Code(s): N18.3 - CHRONIC KIDNEY DISEASE, STAGE 3 (MODERATE) Assessment/Plan Current Medications Generic Name Dose Route Start Last Admin Trade Name Freq PRN Reason Stop Dose Admin Acetaminophen 650 mg 11/28/17 13:02 Tylenol - PO Q4H PRN fever or pain level 1-5 Aspirin 81 mg 11/29/17 10:00 Asa - PO DAILY [facility] Atorvastatin Calcium 40 mg 11/28/17 22:00 Lipitor - PO HS [facility] Fentanyl 50 mcg 11/28/17 12:42 Sublimaze Injection - IVPUSH 11/28/17 18:00 [id number] PRN PAIN-PACU ORDER X 4 DOSES ONLY Furosemide 40 mg 11/29/17 10:00 Lasix - PO DAILY [facility] Heparin Sodium (Porcine) 5,000 unit 11/28/17 14:00 Heparin - SQ TID MARY Hydralazine HCl 25 mg 11/28/17 14:00 Apresoline - PO TID MARY Lactated Ringer's 1,000 mls @ 125 mls/hr 11/28/17 13:00 Lactated Ringers Solution IV ASDIR MARY Ceftriaxone Sodium 1 gm/ 50 mls @ 100 mls/hr 11/29/17 10:00 Dextrose IVPB DAILY [facility] Protocol Clindamycin Phosphate 600 mg in 50 mls @ 100 mls/hr 11/28/17 15:00 Cleocin 600 Mg Premix Ivpb - IVPB Q6H-IV [facility] Protocol Sodium Chloride 1,000 mls @ 75 mls/hr 11/28/17 13:02 Normal Saline - IV ASDIR MARY Insulin Aspart 1 vial 11/28/17 16:30 Novolog Vial Sliding Scale - SQ ACHS [facility] Protocol Insulin Detemir 40 units 11/28/17 22:00 Levemir Vial SQ HS [facility]ARY Ondansetron HCl 4 mg 11/28/17 12:42 Zofran Injection IVPUSH 11/29/17 12:41 Q6H PRN NAUSEA AND/OR VOMITING Oxycodone HCl 10 mg 11/28/17 12:42 Roxicodone - PO 11/29/17 12:41 Q4H PRN PAIN LEVEL 6-10 Impression 1. CKD 2. CHF 3. DFU 4. hx of osteomyelitis 5. hx hyperkalemia 6. DM 7. HTN 8. obesity 9. anemia 10. hx of urinary obstruction/high post void residual 11. nephrotic range proteinuria 12. perineal abscess Plan - renal function is stable - renal dose meds - wound care post op - follow cultures - resume home meds - will follow Dr Tong
[2017-11-28] MEDS: SODIUM CHLORIDE 1,000 ML IV SCH (13:45)
--- NOTE | 2017-11-28 14:13 | PN ---
Progress Note (short form) - Note Progress Note: ID Consult dictated Post op I&D perineal abscess IDDM CKD Pending c/s empiric tx zosyn/ flagyl/vancomycin, adjusted for renal failure
[2017-11-28] MEDS ORDERED: PIPERACILLIN/TAZOBACTAM 2.25 GM VIAL IVPB ONE ×2 (14:45→20:35)
[2017-11-28] MEDS: hydrALAZINE HCL 25 MG TABLET (FP) PO SCH ×2 (14:49→21:07)
[2017-11-28] MEDS: PIPERACILLIN/TAZOB 2.25 GM 2.25 GM in DEXTROSE 5%-WATER - 50 ML IVPB SCH ×2 (14:49→21:06)
[2017-11-28] MEDS: HEPARIN NA (PORCINE) 5,000 UNITS/ML 1ML VIAL SQ SCH ×2 (14:49→21:07)
--- NOTE | 2017-11-28 15:01 | CONS ---
DATE OF CONSULTATION: 11/28/2017 The patient is a 52-year-old male who is evaluated for perineal abscess. The patient is an insulin-dependent diabetic. He reports a 3-day history of sharp pain in the perineal area associated with firmness. He had been treated with doxycycline without improvement. He presented to the emergency room, where he was found to have a perineal abscess. CAT scan was performed of the pelvis and showed mild bilateral pelvic inguinal adenopathy, no evidence of perineal abscess, although the perineum was not completely imaged. Sonogram showed the presence of a hypoechoic area approximately 4 x 2 x 1 cm, suggestive of an inflammatory process and consistent with clinical history of perineal abscess. Patient was taken to the operating room, where incision and drainage was performed today. He denies any associated fever or chills. He had a low-grade fever on admission with a normal white blood cell count. Cultures are pending. Past medical history positive for insulin-dependent diabetes, he has been on insulin for the past 3 years; morbid obesity; asthma; hypertension; hyperlipidemia; chronic kidney disease; congestive heart failure; history of diabetic foot infection. PAST SURGICAL HISTORY: Status post right knee surgery. No known allergies. MEDICATIONS: Aspirin, Lipitor, Lasix, Apresoline, NovoLog, Levemir, Zofran. SOCIAL HISTORY: Lives at home in the community. Nonsmoker, nondrinker. SYSTEMS REVIEW: Neurologic: No loss of consciousness, seizure activity, or focal weakness. Cardiac: Negative chest pain or palpitations. Respiratory: Negative cough or sputum production. Gastrointestinal: Negative vomiting or diarrhea. Genitourinary: Negative for urinary tract infection. LABORATORY DATA: White blood cell count 8.8, hematocrit 29.1, platelet count 235, BUN 44, creatinine 2.9. Urinalysis: 5 white cells. Blood cultures pending. PHYSICAL EXAMINATION: General: He is awake and alert, in moderate distress secondary to postoperative pain. Vital Signs: Temperature 98.2. Blood pressure 143/76. Pulse 76. Respirations 24 per minute. Eyes: Sclerae anicteric. Heart Sounds: S1, S2. Lungs: Clear. Abdomen: Obese, soft, nontender. There is a surgical dressing in place with packing in the perineum, with bloody drainage noted. Extremities: 1+ edema. IMPRESSION: 1. Postoperative incision and drainage of perineal abscess. 2. Insulin-dependent diabetes mellitus. 3. Chronic kidney disease. Pending culture results, empiric antibiotic coverage with Zosyn and Flagyl, adjusted for renal insufficiency, stat-dose vancomycin. Local wound care, analgesics. Thank you for the kind referral. PHIL REAL M.D. AREN/[id number]
[2017-11-28] MEDS ORDERED: VANCOMYCIN 1 GM PREMIX - 1 GM/200 ML BAG IVPB ONE (15:15)
--- NOTE | 2017-11-28 16:13 | PN ---
<Farzaneh Ma - Last Filed: 11/28/17 16:34> Physical Exam: SUBJECTIVE: Patient seen and examined at bedside. Today pt went to OR for I&D. This AM, pt c/o pain in perineal region. Otherwise GRAY, fever, chills, SOB, or changes in urinary or bowel function. OBJECTIVE: Vital Signs Period Temp Pulse Resp BP Sys/Swartz Pulse Ox Last 24 Hr 98.0 F-99.9 F 72-96 12-25 130-160/69-87 95-100 GENERAL: The patient is sitting comfortably in bed, reading. alert, and fully oriented, in no acute distress. HEAD: Normal with no signs of trauma. EYES: PERRL, extraocular movements intact, sclera anicteric, conjunctiva clear. ENT: Ears normal, nares patent, oropharynx clear without exudates, moist mucous membranes. NECK: Trachea midline, supple. LUNGS: Breath sounds equal, clear to auscultation bilaterally, no wheezes, no crackles, no accessory muscle use. HEART: Regular rate and rhythm, S1, S2 without murmur, rub or gallop. ABDOMEN: Soft, obese nontender, nondistended, normoactive bowel sounds, no guarding, no rebound : +perineal region - with erythema, TTP EXTREMITIES: 2+ dp, pt pulses, warm, well-perfused, no edema. NEUROLOGICAL: Cranial nerves II through XII grossly intact. PSYCH: Normal mood, normal affect. SKIN: Warm, dry, normal turgor, no rashes or lesions noted MEDS -Lasix 40mg PO qd -Lantus 100U -Novolog 100U TID -aspirin 81mg PO qd Laboratory Results - last 24 hr 11/27/17 11/27/17 11/27/17 19:50 19:50 19:50 WBC 9.0 RBC 3.91 L Hgb 10.5 L D Hct 32.2 L MCV 82.6 MCH 26.8 MCHC 32.4 RDW 15.5 Plt Count 231 D MPV 8.4 Absolute Neuts (auto) 6.7 Neutrophils % 74.6 Lymphocytes % 13.1 D Monocytes % 9.0 Eosinophils % 2.9 Basophils % 0.4 Nucleated RBC % 0 PT with INR PTT (Actin FS) Sodium 137 Potassium 5.1 Chloride 106 Carbon Dioxide 22 Anion Gap 9 BUN 44 H Creatinine 3.2 H Creat Clearance w eGFR 20.66 POC Glucometer Random Glucose 400 H* D Hemoglobin A1c % Lactic Acid 0.9 Calcium 7.8 L Ferritin Total Bilirubin 0.2 AST 8 L ALT 14 Alkaline Phosphatase 121 H Creatine Kinase Troponin I B-Natriuretic Peptide Total Protein 5.7 L Albumin 2.0 L Urine Color Blood Type 11/28/17 11/28/17 11/28/17 07:00 07:00 07:00 WBC 8.8 RBC 3.52 L Hgb 9.4 L D Hct 29.1 L MCV 82.6 MCH 26.8 MCHC 32.5 RDW 15.6 Plt Count 235 MPV 8.7 Absolute Neuts (auto) 6.2 Neutrophils % 69.6 Lymphocytes % 17.3 D Monocytes % 10.7 H Eosinophils % 2.1 Basophils % 0.3 Nucleated RBC % 0 PT with INR 13.30 H INR 1.18 H PTT (Actin FS) 34.4 Sodium 136 Potassium 4.5 Chloride 109 H Carbon Dioxide 18 L Anion Gap 9 BUN 44 H Creatinine 2.9 H Creat Clearance w eGFR 23.15 POC Glucometer Random Glucose 230 H D Hemoglobin A1c % Lactic Acid Calcium 7.4 L Ferritin 69.3 Total Bilirubin 0.2 AST 7 L ALT 14 Alkaline Phosphatase 98 Creatine Kinase Troponin I B-Natriuretic Peptide Total Protein 5.2 L Albumin 1.8 L Urine Color Active Medications Generic Name Dose Route Start Last Admin Trade Name Freq PRN Reason Stop Dose Admin Acetaminophen 650 mg 11/28/17 13:02 Tylenol - PO Q4H PRN pain level 1-5 Acetaminophen 650 mg 11/28/17 13:40 Tylenol - PO Q4H PRN FEVER Aspirin 81 mg 11/29/17 10:00 Asa - PO DAILY [facility] Atorvastatin Calcium 40 mg 11/28/17 22:00 Lipitor - PO HS [facility] Furosemide 40 mg 11/29/17 10:00 Lasix - PO DAILY [facility] Heparin Sodium (Porcine) 5,000 unit 11/28/17 14:00 11/28/17 14:49 Heparin - SQ 5,000 unit TID [facility] Administration Hydralazine HCl 25 mg 11/28/17 14:00 11/28/17 14:49 Apresoline - PO 25 mg TID MARY Administration Sodium Chloride 1,000 mls @ 75 mls/hr 11/28/17 13:02 11/28/17 13:45 Normal Saline - IV 0 mls ASDIR MARY Administration Metronidazole 500 mg in 100 mls @ 100 mls/hr 11/28/17 14:30 11/28/17 15:29 Flagyl 500mg Premixed Ivpb - IVPB 100 mls/hr Q8H-IV [facility] Administration Piperacillin Sod/Tazobactam 50 mls @ 100 mls/hr 11/28/17 15:00 11/28/17 14:49 Sod 2.25 gm/ Dextrose IVPB 100 mls/hr Q6H-IV [facility] Administration Protocol Vancomycin HCl 1 gm in 200 mls @ 133.333 mls/hr 11/28/17 15:15 Vancomycin 1 Gm Premix - IVPB 11/28/17 16:44 ONCE ONE Protocol Insulin Aspart 1 vial 11/28/17 16:30 Novolog Vial Sliding Scale - SQ ACHS [facility] Protocol Insulin Detemir 40 units 11/28/17 22:00 Levemir Vial SQ HS [facility] Oxycodone HCl 10 mg 11/28/17 12:42 Roxicodone - PO 11/29/17 12:41 Q4H PRN PAIN LEVEL 6-10 IMAGING 11/27/17: Scrotal, pelvic sono: bilateral hydroceles with no evidence of torsion or acute testicular pathology. 2. findings suspicious for a L perineal abscess. Clinical correlation and follow -up recommended. 11/28/17: Pelvic CT without contrast: 1. mild bilateral pelvic and inguinal lymphadenopathy. 2. no evidence of perineal abscess. 3. sclerotic changes of the R iliac bone. clinical correlation and follow-up recommended. Microbiology 11/28/17: Wound cx - gram stain, wound cx - pending 11/28/17: abscess- gram stain, wound cx - pending 11/27/17: blood cx - pending ASSESSMENT/PLAN: 52M w/ hx of recurrent abscesses, NIDDM, CKD, asthma, HTN, HLD, lower back pain , and CHF who presents with a perineal abscess for three days. #perineal abscess with surrounding cellulitis -received dose of levaquin 750 and vancomycin 1500 in ED -pain control with tylenol 650mg q4h PRN -7x3cm median raphe abscess with 1x2m necrotic subcutaneous tissue -s/p I&D with Dr. Martinez (11/28/17) -continue flagyl 500mg q8h, vanco 1g x 1 , zosyn 2.25 q6h - renal dosing -F/u wound cx, blood cx -ID: Dr. Rubio -Surgery: Dr. Martinez -IVF #IDDM -levemir 40U SQ HS, uptitrate as needed -BGM and ISS ACHS -A1c: 13.4% #CKD -Cr 3.2 > 2.9 , improving. at baseline -renal fnc stable -renally dose meds, pelon abx -Nephro on board: Dr. Tong #HTN- controlled -started on hydralazine 25mg TID -non-compliant w meds #HLD -started on lipitor 40mg qHS #CHF -continue home lasix 40 mg PO qd #Anemia -baseline of 8-9 likely 2/2 CKD in setting of DM and HTN -f/u iron studies, FOBT #severe morbid obesity -nutrition consult #b/l hydroceles -as shown on testicular US -f/u outpatient #lower back pain -continue tylenol PRN #FEN -IV NS 75cc/hr -continue to follow lytes -diabetic/sodium controlled diet #PPX -heparin 5000 TID #Dispo continued monitoring on med surg Visit type - Emergency Visit Emergency Visit: No - New Patient This patient is new to me today: Yes Date on this admission: 11/28/17 - Critical Care Critical Care patient: No <Martha Alonso - Last Filed: 11/28/17 18:24> Physical Exam: Patient is s/p I/D by , continue IV antibiotic. Patient is seen by ID and appreciated. As per surgery : 7 x 3 cm median raphe abscess with 1 x 2 cm necrotic subcutaneous tissue
--- NOTE | 2017-11-28 20:42 | OP ---
DATE OF OPERATION: 11/28/2017 PROCEDURE: Incision and drainage of perineal abscess. PREOPERATIVE DIAGNOSIS: Perineal abscess. POSTOPERATIVE DIAGNOSIS: Perineal abscess. SURGEON: Jonah Martinez MD ANESTHESIA: General by laryngeal mask airway. FINDINGS AND PROCEDURE: This is a 52-year-old male with history of diabetes, chronic kidney disease, and congestive heart failure, who presented with 4 days' history of pain of the perineum at the median raphe area, associated with swelling and tenderness. On physical exam, patient has a 7 x 3 cm tender, edematous, fluctuant mass of the median raphe. So, the patient being diabetic, was admitted for intravenous antibiotics and surgical intervention. Consent was obtained after discussing the risks, benefits, and alternatives to the procedure. Patient was brought to the operating room and placed in supine position. General anesthesia by laryngeal mask airway was then administered. The patient was then placed in lithotomy position. The perineum was prepped and draped in usual sterile fashion. Using scalpel blade number 15, a 6-cm vertical midline incision was made with dissection carried down to the subcutaneous tissue. Further dissection using surgeon's digits to bluntly take down the loculations was done, and about 30 mL of purulent fluid was drained. A sample was sent for culture and sensitivity studies. A 1 x 2 cm piece of early necrotic tissue was excised using Bovie cautery. The wound was copiously irrigated with sterile normal saline until the return was clear. The wound was packed with 2-inch Iodoform strips and covered with a pressure dressing. Patient was placed back in supine position and successfully extubated. Patient was transferred to the postanesthesia care unit in satisfactory condition. Estimated blood loss was about 10 mL. Wound class: Dirty. The patient was already on antibiotics upon admission. Akshat [id number] MTDD
[2017-11-28] MEDS: ATORVASTATIN CA 40 MG TABLET (FP) PO SCH (21:07)
[2017-11-28] MEDS ORDERED: INSULIN (LEVEMIR) 100 UNITS/ML UNITS SQ SCH ×2 (22:00)
[2017-11-28] MEDS ORDERED: ATORVASTATIN CA 40 MG TABLET (FP) PO SCH (22:00)
[2017-11-29] MEDS ORDERED: INSULIN (NOVOLOG) ASPART 100 UNITS/ML 10ML VIAL SQ ONE ×2 (00:10→03:15)
[2017-11-29] MEDS: SODIUM CHLORIDE 1,000 ML IV SCH (01:27)
[2017-11-29 01:33] LABS: ANION GAP 8 (8-16); BLOOD UREA NITROGEN 47 mg/dL (7-18); CHLORIDE 105 mmol/L (98-107); CO2 19 mmol/L (21-32); CREATININE 3.1 mg/dL (0.7-1.3); POTASSIUM 5.7 mmol/L (3.5-5.1); SODIUM 132 mmol/L (136-145)
[2017-11-29 01:37] LABS: CALCIUM 6.9 mg/dL (8.5-10.1); GLUCOSE,RANDOM 492 mg/dL (74-106)
[2017-11-29] MEDS ORDERED: PIPERACILLIN/TAZOBACTAM 2.25 GM VIAL IVPB ONE ×4 (02:41→20:30)
[2017-11-29] MEDS ORDERED: DEXTROSE 5%-WATER - 50 ML IVPB ONE ×4 (02:41→20:30)
[2017-11-29] MEDS: PIPERACILLIN/TAZOB 2.25 GM 2.25 GM in DEXTROSE 5%-WATER - 50 ML IVPB SCH ×4 (02:48→21:32)
[2017-11-29] MEDS ORDERED: SODIUM POLYSTYRENE SULFONATE 15 GM/60 ML BOTTLE PO ONE (03:20)
[2017-11-29] MEDS ORDERED: CALCIUM GLUCONATE 10% - 1,000 MG/10 ML VIAL IVPUSH ONE (03:54)
[2017-11-29] MEDS: ALBUTEROL SO4 0.083% IH SOL 2.5 MG/3 ML VIAL.NEB. NEB SCH ×4 (04:00→04:45)
--- NOTE | 2017-11-29 04:10 | HOSP ---
Subjective - Review of Symptoms Events since last encounter: Pt with persistent hyperglycemia to 400-500s overnight. Received novolog 12units x2. BMP ordered. No evidence of anion-gap, however K of 5.7 noted. EKG ordered, notable for borderline peaked T-waves in V3-V4. Pt ordered for calcium gluconate, albuterol nebs x3, kayexalate 30mg and 10 units novolog. Will repeat K at 6AM with standard labs. Physical Examination Vital Signs: Vital Signs Temperature 98.4 F 11/29/17 01:19 Pulse Rate 68 11/29/17 01:19 Respiratory Rate 20 11/29/17 01:19 Blood Pressure 146/80 11/29/17 01:19 O2 Sat by Pulse Oximetry (%) 97 11/28/17 21:00 Labs: CBC, BMP 11/28/17 07:00 11/29/17 00:44 Visit type - Emergency Visit Emergency Visit: Yes ED Registration Date: 11/28/17 Care time: The patient presented to the Emergency Department on the above date and was hospitalized for further evaluation of their emergent condition. - New Patient This patient is new to me today: Yes Date on this admission: 11/29/17 - Critical Care Critical Care patient: No
[2017-11-29 06:06] LABS: SERUM IRON SATURATION 8 % (15-55); TOTAL IRON BINDING CAPACITY 174 ug/dL (250-450); UIBC 160 ug/dL (111-343)
[2017-11-29] MEDS: HEPARIN NA (PORCINE) 5,000 UNITS/ML 1ML VIAL SQ SCH ×3 (06:29→21:32)
[2017-11-29] MEDS: INSULIN SLIDING SCALE (NOVOLOG) 1 VIAL SQ SCH ×3 (06:29→16:18)
[2017-11-29] MEDS: hydrALAZINE HCL 25 MG TABLET (FP) PO SCH ×3 (06:29→21:32)
[2017-11-29] MEDS ORDERED: INSULIN (NOVOLOG) ASPART 100 UNITS/ML 10ML VIAL ONE ×2 (06:37→20:30)
[2017-11-29 07:39] LABS: BASO % 0.3 % (0-2.0); EOS % 0.5 % (0-4.5); HEMATOCRIT 30.5 % (35.4-49); HEMOGLOBIN 9.9 GM/dL (11.7-16.9); LYMPH % 11.7 % (8-40); MCH 26.9 pg (25.7-33.7); MCHC 32.4 g/dl (32.0-35.9); MEAN PLT VOLUME 8.6 fl (7.5-11.1); MONO % 9.6 % (3.8-10.2); NEUT % 77.9 % (42.8-82.8); PLATELET COUNT 204 K/MM3 (134-434); RBC 3.67 M/mm3 (4.00-5.60); RDW 15.4 % (11.9-15.9); WHITE BLOOD COUNT 6.8 K/mm3 (4.0-10.0)
[2017-11-29 08:04] LABS: CHLORIDE 106 mmol/L (98-107); POTASSIUM 4.7 mmol/L (3.5-5.1); SODIUM 136 mmol/L (136-145)
[2017-11-29 08:44] LABS: ANION GAP 12 (8-16); BLOOD UREA NITROGEN 48 mg/dL (7-18); CALCIUM 7.1 mg/dL (8.5-10.1); CO2 18 mmol/L (21-32); CREATININE 3.1 mg/dL (0.7-1.3); MAGNESIUM 1.6 mg/dL (1.8-2.4); PHOSPHOROUS 3.1 mg/dL (2.5-4.9)
[2017-11-29 08:49] LABS: GLUCOSE,RANDOM 357 mg/dL (74-106)
[2017-11-29] MEDS ORDERED: MAGNESIUM SULF 50% (8.12 MEQ/2 ML-1 GM VIAL) IVPB ONE (09:26)
--- NOTE | 2017-11-29 09:45 | CONSULT ---
Consult Consult Specialty:: Endocrinology Referred by:: Dr Mckeon Reason for Consultation:: Hyperglycemia - History of Present Illness Chief Complaint: Abscess perineal area History of Present Illness: This is a 52 y/o Man with h/o recurrent abscesses, T2DM for 17 years on Insulin for about 14 years, CKD, asthma, HTN, HLD, lower back pain, and CHF who presented with a perineal abscess for 3 days. Per pt, he first noticed it 3 days prior to admission in his perineal area. Since then, it has become progressively painful, larger, firmer, and erythematous.. He took an old prescription of doxycyline q12h for the past 2 days without improvement. Pt reports medication non-adherence, only taking certain medications when he feels that he needs them. Usually takes Lantus 100 units at bedtimes and Novolog 100units with each meal. He however skips meals so ends up taking Novolog once or twice daily. Last saw MD in January. He denies fevers, chills, chest pain, SOB , abdominal pain, constipation, dysuria, drainage from abscess, and prior trauma to area. Pt had 2 prior episodes of abscesses, one in his right groin, and another in his gluteal cleft. FS at home 200 to 275. No hospitalization for hypo or hyperglycemia. Gives h/o of retinopathy, ?macular edema and neuropathy. Had laser treatment and injection to both eyes in the past. Also c/o of numbness of feet and dry ulcer left big toe. - History Source History Provided By: Patient, Medical Record - Past Medical History Cardio/Vascular: Yes: HTN, Hyperlipdemia Pulmonary: Yes: Asthma, Other (chronic cough (nonproductive) x1 year) Gastrointestinal: Yes: Other (obesity) Renal/: Yes: Renal Inusuff (CKD baseline Creatinine 1.8), Other (urinary obstruction) Infectious Disease: Yes: MRSA (right buttock abscess several years ago), Other ( osteomyelitis) Endocrine: Yes: Diabetes Mellitus, Other (DM with neuropathy) - Past Surgical History Additional Surgical History: I & D of buttock and julianne abscesses - Alcohol/Substance Use Hx Alcohol Use: No History of Substance Use: reports: None - Smoking History Smoking history: Never smoked Have you smoked in the past 12 months: No Aproximately how many cigarettes per day: 0 - Social History Usual Living Arrangement: With Child ADL: 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 History of Recent Travel: No Home Medications - Allergies Allergies/Adverse Reactions: Allergies Allergy/AdvReac Type Severity Reaction Status Date / Time No Known Allergies Allergy Verified 11/27/17 18:38 - Home Medications Home Medications: Ambulatory Orders Aspirin [ASA -] 81 mg PO DAILY 07/27/14 Furosemide [Lasix -] 40 mg PO DAILY #30 tablet 07/31/16 Insulin Glargine,Hum.rec.anlog [Toujeo Solostar] 100 unit SQ DAILY #1 insuln.pen 07/31/16 Insulin Lispro [Humalog Kwikpen U-100] 100 unit SQ TID #1 insuln.pen 07/31/16 Acetaminophen [Tylenol -] 1,000 mg PO Q6H #30 tablet 09/19/16 Oxycodone HCl/Acetaminophen [Percocet 5-325 mg Tablet] 1 tab PO Q4H #12 tablet MDD 6mg 09/19/16 Family Disease History - Family Disease History Family Disease History: Diabetes: Father ( 50s cycling accident), Other: Mother (alive HTN), Sister (healthy and living) Review of Systems - Review of Systems Constitutional: reports: No Symptoms Eyes: reports: No Symptoms HENT: reports: No Symptoms Neck: reports: No Symptoms Cardiovascular: reports: No Symptoms Respiratory: reports: No Symptoms Gastrointestinal: reports: No Symptoms Genitourinary: reports: Pain (and discharge perineal area) Musculoskeletal: reports: No Symptoms Neurological: reports: No Symptoms Endocrine: reports: No Symptoms Hematology/Lymphatic: reports: No Symptoms Physical Exam Vital Signs: Vital Signs Temperature 98 F 11/29/17 05:58 Pulse Rate 87 11/29/17 05:58 Respiratory Rate 20 11/29/17 05:58 Blood Pressure 143/73 11/29/17 05:58 O2 Sat by Pulse Oximetry (%) 97 11/28/17 21:00 Constitutional: Yes: Well Nourished, No Distress Eyes: Yes: Conjunctiva Clear, EOM Intact HENT: Yes: Atraumatic, Normocephalic Neck: Yes: Supple Cardiovascular: Yes: Regular Rate and Rhythm Respiratory: Yes: Regular, CTA Bilaterally Gastrointestinal: Yes: Normal Bowel Sounds, Soft Musculoskeletal: Yes: WNL Extremities: Yes: Other (dressing left big toe) Edema: No Wound/Incision: Yes: Draining (ulcer left perineal/scrotal area) Neurological: Yes: Alert, Oriented Labs: CBC, BMP 11/29/17 06:15 11/29/17 06:15 Assessment/Plan AP: Perineal Abscess Uncontrolled blood sugar HTN CHF CKD Obesity Anemia BGM QACHS Levemir 30 units BID Novolog SS coverage Will adjust Insulin dose as appropriate Nutrition consult IV Ax Local wound care Will F/U
[2017-11-29] MEDS: ASPIRIN 81 MG CHEWABLE TABLETS PO SCH (09:55)
[2017-11-29] MEDS: FUROSEMIDE 40 MG TABLET (FP) PO SCH (09:55)
[2017-11-29] MEDS ORDERED: CEFTRIAXONE 1 GM in DEXTROSE 5%-WATER - 50 ML IVPB SCH (10:00)
[2017-11-29] MEDS ORDERED: MAGNESIUM 1GM/D5W - 1 GM/100 ML IVPB IVPB ONE (10:00)
[2017-11-29] MEDS ORDERED: CALCIUM CHLORIDE 10% 1 GM/10 ML *VIAL IVPB ONE (11:30)
[2017-11-29] MEDS ORDERED: SODIUM CHLORIDE IVPUSH ONE (11:45)
[2017-11-29] MEDS ORDERED: CALCIUM CHLORIDE IVPUSH ONE (11:45)
--- NOTE | 2017-11-29 12:12 | EKG ---
Test Reason : Blood Pressure : / mmHG Vent. Rate : 066 BPM Atrial Rate : 066 BPM P-R Int : 170 ms QRS Dur : 112 ms QT Int : 430 ms P-R-T Axes : 050 -14 062 degrees QTc Int : 450 ms NORMAL SINUS RHYTHM INCOMPLETE RIGHT BUNDLE BRANCH BLOCK T WAVE ABNORMALITY, CONSIDER LATERAL ISCHEMIA BORDERLINE ECG WHEN COMPARED WITH ECG OF 27-NOV-2017 21:08, NO SIGNIFICANT CHANGE WAS FOUND Confirmed by MD GAB, LULI ([id number]) on 11/29/2017 12:12:41 PM Referred By: Confirmed By:LULI DE GUZMAN MD
[2017-11-29 12:14] VITALS: BMI 45.0
--- NOTE | 2017-11-29 12:35 | PN ---
Progress Note, Physician History of Present Illness: POD #1 No c/o perineal pain at present No fever/ chills Tolerating antibiotics Afebrile - Current Medication List Current Medications: Active Medications Acetaminophen (Tylenol -) 650 mg PO Q4H PRN PRN Reason: pain level 1-5 Acetaminophen (Tylenol -) 650 mg PO Q4H PRN PRN Reason: FEVER Aspirin (Asa -) 81 mg PO DAILY [facility] Last Admin: 11/29/17 09:55 Dose: 81 mg Atorvastatin Calcium (Lipitor -) 40 mg PO HS [facility] Last Admin: 11/28/17 21:07 Dose: 40 mg Furosemide (Lasix -) 40 mg PO DAILY [facility] Last Admin: 11/29/17 09:55 Dose: 40 mg Heparin Sodium (Porcine) (Heparin -) 5,000 unit SQ TID [facility] Last Admin: 11/29/17 06:29 Dose: 5,000 unit Hydralazine HCl (Apresoline -) 25 mg PO TID [facility] Last Admin: 11/29/17 06:29 Dose: 25 mg Metronidazole (Flagyl 500mg Premixed Ivpb -) 500 mg in 100 mls @ 100 mls/hr IVPB Q8H-IV MARY Last Admin: 11/29/17 10:51 Dose: 100 mls/hr Piperacillin Sod/Tazobactam (Sod 2.25 gm/ Dextrose) 50 mls @ 100 mls/hr IVPB Q6H-IV MARY; Protocol Last Admin: 11/29/17 09:55 Dose: 100 mls/hr Vancomycin HCl (Vancomycin 1 Gm Premix -) 1 gm in 200 mls @ 166.667 mls/hr IVPB ONCE ONE; Protocol Stop: 11/29/17 14:11 Insulin Aspart (Novolog Vial Sliding Scale -) 1 vial SQ TIDAC [facility]; Protocol Last Admin: 11/29/17 11:05 Dose: 22 units Insulin Detemir (Levemir Vial) 40 units SQ [facility] Last Admin: 11/28/17 21:07 Dose: 40 unit Oxycodone HCl (Roxicodone -) 10 mg PO Q4H PRN PRN Reason: PAIN LEVEL 6-10 Stop: 11/29/17 12:41 Last Admin: 11/28/17 21:19 Dose: 10 mg - Objective Vital Signs: Vital Signs Temperature 98 F 11/29/17 05:58 Pulse Rate 87 11/29/17 05:58 Respiratory Rate 20 11/29/17 05:58 Blood Pressure 143/73 11/29/17 05:58 O2 Sat by Pulse Oximetry (%) 97 11/28/17 21:00 Constitutional: Yes: No Distress Eyes: Yes: Conjunctiva Clear Cardiovascular: Yes: Regular Rate and Rhythm, S1, S2 Respiratory: Yes: CTA Bilaterally Gastrointestinal: Yes: Normal Bowel Sounds, Soft. No: Tenderness Genitourinary: Yes: Other (perineal wound packed no drainage) Labs: CBC, BMP 11/29/17 06:15 11/29/17 06:15 INR, PTT INR 1.18 (0.82-1.09) H 11/28/17 07:00 Assessment/Plan POD #1 I&D perineal abscess IDDM CKD BC no growth Wound c/s mixed Await final c/s Continue zosyn/ flagyl Redose vancomycin Local wound care
[2017-11-29] MEDS ORDERED: VANCOMYCIN 1 GM PREMIX - 1 GM/200 ML BAG IVPB ONE (13:00)
[2017-11-29] MEDS: oxyCODONE HCL 5 MG TABLET PO PRN (14:29)
[2017-11-29] MEDS: ACETAMINOPHEN 325 MG TABLET (FP) PO PRN (14:29)
--- NOTE | 2017-11-29 14:56 | PN ---
Progress Note, Physician Chief Complaint: Pt. pain controlled, no GA complaints. - Current Medication List Current Medications: Active Medications Acetaminophen (Tylenol -) 650 mg PO Q4H PRN PRN Reason: pain level 1-5 Last Admin: 11/29/17 14:29 Dose: 650 mg Acetaminophen (Tylenol -) 650 mg PO Q4H PRN PRN Reason: FEVER Aspirin (Asa -) 81 mg PO DAILY [facility] Last Admin: 11/29/17 09:55 Dose: 81 mg Atorvastatin Calcium (Lipitor -) 40 mg PO HS [facility] Last Admin: 11/28/17 21:07 Dose: 40 mg Furosemide (Lasix -) 40 mg PO DAILY [facility] Last Admin: 11/29/17 09:55 Dose: 40 mg Heparin Sodium (Porcine) (Heparin -) 5,000 unit SQ TID [facility] Last Admin: 11/29/17 13:41 Dose: 5,000 unit Hydralazine HCl (Apresoline -) 25 mg PO TID [facility] Last Admin: 11/29/17 13:40 Dose: 25 mg Metronidazole (Flagyl 500mg Premixed Ivpb -) 500 mg in 100 mls @ 100 mls/hr IVPB Q8H-IV [facility] Last Admin: 11/29/17 10:51 Dose: 100 mls/hr Piperacillin Sod/Tazobactam (Sod 2.25 gm/ Dextrose) 50 mls @ 100 mls/hr IVPB Q6H-IV [facility]; Protocol Last Admin: 11/29/17 14:30 Dose: 100 mls/hr Insulin Aspart (Novolog Vial Sliding Scale -) 1 vial SQ TIDAC [facility]; Protocol Last Admin: 11/29/17 11:05 Dose: 22 units Insulin Detemir (Levemir Vial) 40 units SQ [facility] Last Admin: 11/28/17 21:07 Dose: 40 unit Oxycodone HCl (Roxicodone -) 5 mg PO Q6H PRN PRN Reason: PAIN LEVEL 7 - 10 Last Admin: 11/29/17 14:29 Dose: 5 mg - Objective Vital Signs: Vital Signs Temperature 98.3 F 11/29/17 10:00 Pulse Rate 76 11/29/17 10:00 Respiratory Rate 20 11/29/17 10:00 Blood Pressure 141/71 11/29/17 10:00 O2 Sat by Pulse Oximetry (%) 97 11/29/17 09:00 Constitutional: Yes: Well Nourished, No Distress, Calm Neurological: Yes: WNL, Alert, Oriented Labs: CBC, BMP 11/29/17 06:15 11/29/17 06:15 INR, PTT INR 1.18 (0.82-1.09) H 11/28/17 07:00 Assessment/Plan POD#1 s/p I&D perianal abscess under GA. Doing well from anesthesia standpoint. D/C from anesthesia care.
--- NOTE | 2017-11-29 14:58 | PN ---
Progress Note, Physician History of Present Illness: Pt seen and examined at bedside. He is awake and alert. He denies fevers or chills. - Current Medication List Current Medications: Active Medications Acetaminophen (Tylenol -) 650 mg PO Q4H PRN PRN Reason: pain level 1-5 Last Admin: 11/29/17 14:29 Dose: 650 mg Acetaminophen (Tylenol -) 650 mg PO Q4H PRN PRN Reason: FEVER Aspirin (Asa -) 81 mg PO DAILY [facility] Last Admin: 11/29/17 09:55 Dose: 81 mg Atorvastatin Calcium (Lipitor -) 40 mg PO HS [facility] Last Admin: 11/28/17 21:07 Dose: 40 mg Furosemide (Lasix -) 40 mg PO DAILY [facility] Last Admin: 11/29/17 09:55 Dose: 40 mg Heparin Sodium (Porcine) (Heparin -) 5,000 unit SQ TID [facility] Last Admin: 11/29/17 13:41 Dose: 5,000 unit Hydralazine HCl (Apresoline -) 25 mg PO TID [facility] Last Admin: 11/29/17 13:40 Dose: 25 mg Metronidazole (Flagyl 500mg Premixed Ivpb -) 500 mg in 100 mls @ 100 mls/hr IVPB Q8H-IV [facility] Last Admin: 11/29/17 10:51 Dose: 100 mls/hr Piperacillin Sod/Tazobactam (Sod 2.25 gm/ Dextrose) 50 mls @ 100 mls/hr IVPB Q6H-IV [facility]; Protocol Last Admin: 11/29/17 14:30 Dose: 100 mls/hr Insulin Aspart (Novolog Vial Sliding Scale -) 1 vial SQ TIDAC [facility]; Protocol Last Admin: 11/29/17 11:05 Dose: 22 units Insulin Detemir (Levemir Vial) 40 units SQ HS [facility] Last Admin: 11/28/17 21:07 Dose: 40 unit Oxycodone HCl (Roxicodone -) 5 mg PO Q6H PRN PRN Reason: PAIN LEVEL 7 - 10 Last Admin: 11/29/17 14:29 Dose: 5 mg - Objective Vital Signs: Vital Signs Temperature 98.3 F 11/29/17 10:00 Pulse Rate 76 11/29/17 10:00 Respiratory Rate 20 11/29/17 10:00 Blood Pressure 141/71 11/29/17 10:00 O2 Sat by Pulse Oximetry (%) 97 11/29/17 09:00 Constitutional: Yes: Calm Eyes: Yes: Conjunctiva Clear HENT: Yes: Atraumatic Neck: Yes: Supple Cardiovascular: Yes: S1, S2 Respiratory: Yes: CTA Bilaterally Gastrointestinal: Yes: Soft, Abdomen, Obese Genitourinary: Yes: Other (perineal abscess s/p I and D) Musculoskeletal: Yes: WNL Edema: Yes Edema: LLE: Trace, RLE: Trace Neurological: Yes: Oriented Psychiatric: Yes: Oriented Labs: CBC, BMP 11/29/17 06:15 11/29/17 06:15 INR, PTT INR 1.18 (0.82-1.09) H 11/28/17 07:00 Problem List - Problems (1) Perineal abscess Code(s): L02.215 - CUTANEOUS ABSCESS OF PERINEUM (2) Anemia in chronic kidney disease (CKD) Code(s): N18.9 - CHRONIC KIDNEY DISEASE, UNSPECIFIED; D63.1 - ANEMIA IN CHRONIC KIDNEY DISEASE (3) CHF (congestive heart failure) Code(s): I50.9 - HEART FAILURE, UNSPECIFIED Qualifiers: Qualified Code(s): I50.9 - Heart failure, unspecified (4) CKD (chronic kidney disease) stage 3, GFR 30-59 ml/min Code(s): N18.3 - CHRONIC KIDNEY DISEASE, STAGE 3 (MODERATE) Assessment/Plan Current Medications Generic Name Dose Route Start Last Admin Trade Name Freq PRN Reason Stop Dose Admin Acetaminophen 650 mg 11/28/17 13:02 11/29/17 14:29 Tylenol - PO 650 mg Q4H PRN Administration pain level 1-5 Acetaminophen 650 mg 11/28/17 13:40 Tylenol - PO Q4H PRN FEVER Aspirin 81 mg 11/29/17 10:00 11/29/17 09:55 Asa - PO 81 mg DAILY MARY Administration Atorvastatin Calcium 40 mg 11/28/17 22:00 11/28/17 21:07 Lipitor - PO 40 mg HS MARY Administration Furosemide 40 mg 11/29/17 10:00 11/29/17 09:55 Lasix - PO 40 mg DAILY [facility]ARY Administration Heparin Sodium (Porcine) 5,000 unit 11/28/17 14:00 11/29/17 13:41 Heparin - SQ 5,000 unit TID MARY Administration Hydralazine HCl 25 mg 11/28/17 14:00 11/29/17 13:40 Apresoline - PO 25 mg TID MARY Administration Metronidazole 500 mg in 100 mls @ 100 mls/hr 11/28/17 14:30 11/29/17 10:51 Flagyl 500mg Premixed Ivpb - IVPB 100 mls/hr Q8H-IV MARY Administration Piperacillin Sod/Tazobactam 50 mls @ 100 mls/hr 11/28/17 15:00 11/29/17 14:30 Sod 2.25 gm/ Dextrose IVPB 100 mls/hr Q6H-IV MARY Administration Protocol Insulin Aspart 1 vial 11/29/17 11:00 11/29/17 11:05 Novolog Vial Sliding Scale - SQ 22 units TIDAC MARY Administration Protocol Insulin Detemir 40 units 11/28/17 22:00 11/28/17 21:07 Levemir Vial SQ 40 unit HS MARY Administration Oxycodone HCl 5 mg 11/29/17 14:24 11/29/17 14:29 Roxicodone - PO 5 mg Q6H PRN Administration PAIN LEVEL 7 - 10 Impression 1. CKD 2. CHF 3. hx of DFU 4. hx of osteomyelitis 5. hx hyperkalemia 6. DM 7. HTN 8. obesity 9. anemia 10. hx of urinary obstruction/high post void residual 11. nephrotic range proteinuria 12. perineal abscess Plan - cont lasix - renal diet - monitor potassium - wound care - will follow Dr Tong
--- NOTE | 2017-11-29 17:17 | PN ---
Teaching Attending Note Name of Resident: Farzaneh Ma ATTENDING PHYSICIAN STATEMENT I saw and evaluated the patient. I reviewed the resident's note and discussed the case with the resident. I agree with the resident's findings and plan as documented. SUBJECTIVE: OBJECTIVE: Vital Signs Temperature 98.3 F 11/29/17 10:00 Pulse Rate 76 11/29/17 10:00 Respiratory Rate 20 11/29/17 10:00 Blood Pressure 141/71 11/29/17 10:00 O2 Sat by Pulse Oximetry (%) 97 11/29/17 09:00 CBCD WBC 6.8 K/mm3 (4.0-10.0) 11/29/17 06:15 RBC 3.67 M/mm3 (4.00-5.60) L 11/29/17 06:15 Hgb 9.9 GM/dL (11.7-16.9) L 11/29/17 06:15 Hct 30.5 % (35.4-49) L 11/29/17 06:15 MCV 83.0 fl (80-96) 11/29/17 06:15 MCHC 32.4 g/dl (32.0-35.9) 11/29/17 06:15 RDW 15.4 % (11.9-15.9) 11/29/17 06:15 Plt Count 204 K/MM3 (134-434) 11/29/17 06:15 MPV 8.6 fl (7.5-11.1) 11/29/17 06:15 CMP Sodium 136 mmol/L (136-145) 11/29/17 06:15 Potassium 4.7 mmol/L (3.5-5.1) 11/29/17 06:15 Chloride 106 mmol/L (98-107) 11/29/17 06:15 Carbon Dioxide 18 mmol/L (21-32) L 11/29/17 06:15 Anion Gap 12 (8-16) 11/29/17 06:15 BUN 48 mg/dL (7-18) H 11/29/17 06:15 Creatinine 3.1 mg/dL (0.7-1.3) H 11/29/17 06:15 Creat Clearance w eGFR 23.15 (>60) 11/28/17 07:00 Random Glucose 357 mg/dL (74-106) H* D 11/29/17 06:15 Calcium 7.1 mg/dL (8.5-10.1) L 11/29/17 06:15 Total Bilirubin 0.2 mg/dL (0.2-1.0) 11/28/17 07:00 AST 7 U/L (15-37) L 11/28/17 07:00 ALT 14 U/L (12-78) 11/28/17 07:00 Alkaline Phosphatase 98 U/L (45-117) 11/28/17 07:00 Total Protein 5.2 g/dl (6.4-8.2) L 11/28/17 07:00 Albumin 1.8 g/dl (3.4-5.0) L 11/28/17 07:00 CARDIAC ENZYMES Creatine Kinase 77 IU/L (39-308) 11/27/17 19:50 Troponin I < 0.02 ng/ml (0.00-0.05) D 11/27/17 19:50 Current Medications Generic Name Dose Route Start Last Admin Trade Name Mohitq PRN Reason Stop Dose Admin Acetaminophen 650 mg 11/28/17 13:02 11/29/17 14:29 Tylenol - PO 650 mg Q4H PRN Administration pain level 1-5 Acetaminophen 650 mg 11/28/17 13:40 Tylenol - PO Q4H PRN FEVER Aspirin 81 mg 11/29/17 10:00 11/29/17 09:55 Asa - PO 81 mg DAILY MARY Administration Atorvastatin Calcium 40 mg 11/28/17 22:00 11/28/17 21:07 Lipitor - PO 40 mg HS MARY Administration Furosemide 40 mg 11/29/17 10:00 11/29/17 09:55 Lasix - PO 40 mg DAILY MARY Administration Heparin Sodium (Porcine) 5,000 unit 11/28/17 14:00 11/29/17 13:41 Heparin - SQ 5,000 unit TID MARY Administration Hydralazine HCl 25 mg 11/28/17 14:00 11/29/17 13:40 Apresoline - PO 25 mg TID MARY Administration Metronidazole 500 mg in 100 mls @ 100 mls/hr 11/28/17 14:30 11/29/17 17:16 Flagyl 500mg Premixed Ivpb - IVPB 100 mls/hr Q8H-IV MARY Administration Piperacillin Sod/Tazobactam 50 mls @ 100 mls/hr 11/28/17 15:00 11/29/17 14:30 Sod 2.25 gm/ Dextrose IVPB 100 mls/hr Q6H-IV MARY Administration Protocol Insulin Aspart 1 vial 11/29/17 11:00 11/29/17 16:18 Novolog Vial Sliding Scale - SQ 20 units TIDAC MARY Administration Protocol Insulin Aspart 1 vial 11/29/17 22:00 Novolog Vial Sliding Scale - SQ HS MARY Protocol Insulin Detemir 30 units 11/29/17 22:00 Levemir Vial SQ BID@0700,2200 [facility] Oxycodone HCl 5 mg 11/29/17 14:24 11/29/17 14:29 Roxicodone - PO 5 mg Q6H PRN Administration PAIN LEVEL 7 - 10 Home Medications Medication Instructions Recorded Aspirin [ASA -] 81 mg PO DAILY 07/27/14 Furosemide [Lasix -] 40 mg PO DAILY #30 tablet 07/31/16 Insulin Glargine,Hum.rec.anlog 100 unit SQ DAILY #1 insuln.pen 07/31/16 [Toujeo Solostar] Insulin Lispro [Humalog Kwikpen 100 unit SQ TID #1 insuln.pen 07/31/16 U-100] Acetaminophen [Tylenol -] 1,000 mg PO Q6H #30 tablet 09/19/16 Oxycodone HCl/Acetaminophen 1 tab PO Q4H #12 tablet MDD 6mg 09/19/16 [Percocet 5-325 mg Tablet] 11/27/17: Scrotal, pelvic sono: bilateral hydroceles with no evidence of torsion or acute testicular pathology. 2. findings suspicious for a L perineal abscess. Clinical correlation and follow -up recommended. 11/28/17: Pelvic CT without contrast: 1. mild bilateral pelvic and inguinal lymphadenopathy. 2. no evidence of perineal abscess. 3. sclerotic changes of the R iliac bone. clinical correlation and follow-up recommended. Microbiology 11/28/17: Wound cx - gram stain, wound cx - pending 11/28/17: abscess- gram stain, wound cx - pending 11/27/17: blood cx - pending ASSESSMENT AND PLAN: 52M w/ hx of recurrent abscesses, NIDDM, CKD, asthma, HTN, HLD, lower back pain , and CHF who presents with a perineal abscess for three days. #Perineal abscess with cellulitis s/p drainage by , on IV antibiotic Zosyn and Flagyl continue, Id on the case #IDDM on levemir 40U SQ HS, BGM and ISS ACHS, A1c: 13.4% #Acute over CKD Cr 3.2 > 2.9-->3.1 , improving at baseline, #HTN- controlled started on hydralazine 25mg TID, non-compliant w meds #HLD continue on lipitor 40mg qHS #CHF continue home lasix 40 mg PO qd #Anemia f/u iron studies, FOBT # morbid obesity nutrition consult #b/l hydroceles as shown on testicular US, f/u outpatient #lower back pain continue tylenol PRN DVT PPX: heparin 5000 TID
--- NOTE | 2017-11-29 18:10 | PN ---
Physical Exam: SUBJECTIVE: Patient seen and examined at bedside. Overnight, pt with elevated BG ranging into 500's. Received doses of 12u, 10u novolog. Also with hyperkalemia, received albuterol nebs, kayexelate. Pt s/p I&D with Dr. Martinez. Today , without complaint. States that the pain in his perineal region has improved. Denies GRAY, fever, chills, SOB, or changes in urinary or bowel function. OBJECTIVE: Vital Signs Period Temp Pulse Resp BP Sys/Swartz Pulse Ox Last 24 Hr 98 F-98.4 F 68-87 20-22 141-153/71-82 97-97 GENERAL: The patient is resting comfortably. awake, alert, and fully oriented, in no acute distress. HEAD: Normal with no signs of trauma. EYES: PERRL, extraocular movements intact, sclera anicteric, conjunctiva clear. No ptosis. ENT: Ears normal, nares patent, oropharynx clear without exudates, moist mucous membranes. NECK: Trachea midline, full range of motion, supple. LUNGS: Breath sounds equal, clear to auscultation bilaterally, no wheezes, no crackles, no accessory muscle use. however limited d/t body habitus HEART: Regular rate and rhythm, distant S1, S2 without murmur, rub or gallop. ABDOMEN: Soft, obese, nontender, nondistended, normoactive bowel sounds, no guarding : +perineal - with packing, gauze. with mild serosanguineous drainage. EXTREMITIES: 2+ pt pulses, warm, well-perfused, no edema. NEUROLOGICAL: Cranial nerves II through XII grossly intact. PSYCH: Normal mood, normal affect. SKIN: Warm, dry, normal turgor. Laboratory Results 11/29/17 11/29/17 11/29/17 00:44 06:15 06:15 Hgb 9.9 L Hct 30.5 L Potassium 5.7 H D 4.7 BUN 48 H Creatinine 3.1 H POC Glucometer Random Glucose 357 H* D 11/29/17 11/29/17 11/29/17 06:27 11:02 16:16 Creatinine POC Glucometer 392 381 340 Active Medications Generic Name Dose Route Start Last Admin Trade Name Freq PRN Reason Stop Dose Admin Acetaminophen 650 mg 11/28/17 13:02 11/29/17 14:29 Tylenol - PO 650 mg Q4H PRN Administration pain level 1-5 Acetaminophen 650 mg 11/28/17 13:40 Tylenol - PO Q4H PRN FEVER Aspirin 81 mg 11/29/17 10:00 11/29/17 09:55 Asa - PO 81 mg DAILY MARY Administration Atorvastatin Calcium 40 mg 11/28/17 22:00 11/28/17 21:07 Lipitor - PO 40 mg HS MARY Administration Furosemide 40 mg 11/29/17 10:00 11/29/17 09:55 Lasix - PO 40 mg DAILY MARY Administration Heparin Sodium (Porcine) 5,000 unit 11/28/17 14:00 11/29/17 13:41 Heparin - SQ 5,000 unit TID MARY Administration Hydralazine HCl 25 mg 11/28/17 14:00 11/29/17 13:40 Apresoline - PO 25 mg TID MARY Administration Metronidazole 500 mg in 100 mls @ 100 mls/hr 11/28/17 14:30 11/29/17 17:16 Flagyl 500mg Premixed Ivpb - IVPB 100 mls/hr Q8H-IV MARY Administration Piperacillin Sod/Tazobactam 50 mls @ 100 mls/hr 11/28/17 15:00 11/29/17 14:30 Sod 2.25 gm/ Dextrose IVPB 100 mls/hr Q6H-IV MARY Administration Protocol Insulin Aspart 1 vial 11/29/17 11:00 11/29/17 16:18 Novolog Vial Sliding Scale - SQ 20 units TIDAC MARY Administration Protocol Insulin Aspart 1 vial 11/29/17 22:00 Novolog Vial Sliding Scale - SQ HS MARY Protocol Insulin Detemir 30 units 11/29/17 22:00 Levemir Vial SQ BID@0700,2200 MARY Oxycodone HCl 5 mg 11/29/17 14:24 11/29/17 14:29 Roxicodone - PO 5 mg Q6H PRN Administration PAIN LEVEL 7 - 10 IMAGING 11/27/17: Scrotal, pelvic sono: bilateral hydroceles with no evidence of torsion or acute testicular pathology. 2. findings suspicious for a L perineal abscess. Clinical correlation and follow -up recommended. 11/28/17: Pelvic CT without contrast: 1. mild bilateral pelvic and inguinal lymphadenopathy. 2. no evidence of perineal abscess. 3. sclerotic changes of the R iliac bone. clinical correlation and follow-up recommended Microbiology 11/28/17 13:20 Wound-Other Wound Culture - Preliminary Beta Hemolytic Strep 11/28/17 04:36 Abscess Wound Culture - Preliminary Beta Hemolytic Strep Staphylococcus Coagulase Neg 11/27/17 19:50 Blood - Peripheral Venous Blood Culture - Preliminary NO GROWTH OBTAINED AFTER 24 HOURS, INCUBATION TO CONTINUE FOR 4 DAYS. 11/27/17 19:50 Blood - Peripheral Venous Blood Culture - Preliminary NO GROWTH OBTAINED AFTER 24 HOURS, INCUBATION TO CONTINUE FOR 4 DAYS. ASSESSMENT/PLAN: 52M w/ hx of recurrent abscesses, NIDDM, CKD, asthma, HTN, HLD, lower back pain , and CHF who presents with a perineal abscess for three days. #perineal abscess with surrounding cellulitis -received dose of levaquin 750 and vancomycin 1500 in ED -pain control with tylenol 650mg q4h PRN -7x3cm median raphe abscess with 1x2m necrotic subcutaneous tissue -s/p I&D with Dr. Martinez (11/28/17) -continue flagyl 500mg q8h, vanco 1g x 1 , zosyn 2.25 q6h (Day2)- renal dosing -vanco being redosed; f/u trough tomorrow -Pain control roxicodone 5mg PO q6h PRN -Wound cx: (+) B hemolytic strep, staph coagulase neg -blood cx (-)NGTD -sitz baths as per surgery -ID: Dr. Rubio -Surgery: Dr. Martinez -IVF #IDDM- uncontrolled -levemir 30U SQ BID -ISS TIDAC -BGM and ISS -A1c: 13.4% -Endocrine consult- Dr. Mckenna; regimen has been changed -pt counseled at length on important eating habits, BG checks #CKD -Cr 3.1, above baseline 2.9-3 -renal fnc stable -renally dose meds, pelon abx -Nephro on board: Dr. Tong #HTN- controlled -started on hydralazine 25mg TID -non-compliant w meds. #HLD -started on lipitor 40mg qHS #CHF -continue home lasix 40 mg PO qd #Anemia -baseline of 8-9 likely 2/2 CKD in setting of DM and HTN -iron (14), TIBC (174), low iron sat (8) -?chronic dz 2/2 CKD #severe morbid obesity -nutrition consult #b/l hydroceles -as shown on testicular US -f/u outpatient #lower back pain -continue tylenol PRN #FEN -IVF has been d/c, pt with CHF. -continue to follow lytes -diabetic/sodium controlled, renal diet #PPX -heparin 5000 U SQ TID #Dispo continued monitoring on med surg Visit type - Emergency Visit Emergency Visit: No - New Patient This patient is new to me today: No - Critical Care Critical Care patient: No
[2017-11-29] MEDS: INSULIN (LEVEMIR) 100 UNITS/ML UNITS SQ SCH (21:32)
[2017-11-29] MEDS: ATORVASTATIN CA 40 MG TABLET (FP) PO SCH (21:33)
[2017-11-29] MEDS ORDERED: INSULIN SLIDING SCALE (NOVOLOG) 1 VIAL SQ SCH (22:00)
[2017-11-30] MEDS ORDERED: PIPERACILLIN/TAZOBACTAM 2.25 GM VIAL IVPB ONE ×3 (01:20→09:03)
[2017-11-30] MEDS ORDERED: DEXTROSE 5%-WATER - 50 ML IVPB ONE ×2 (01:21→09:02)
[2017-11-30] MEDS: PIPERACILLIN/TAZOB 2.25 GM 2.25 GM in DEXTROSE 5%-WATER - 50 ML IVPB SCH ×2 (03:41→09:07)
[2017-11-30] MEDS: oxyCODONE HCL 5 MG TABLET PO PRN ×2 (04:01→10:58)
[2017-11-30] MEDS: INSULIN SLIDING SCALE (NOVOLOG) 1 VIAL SQ SCH ×2 (06:18→11:02)
[2017-11-30] MEDS: HEPARIN NA (PORCINE) 5,000 UNITS/ML 1ML VIAL SQ SCH ×2 (06:18→13:12)
[2017-11-30] MEDS: hydrALAZINE HCL 25 MG TABLET (FP) PO SCH ×2 (06:18→13:12)
[2017-11-30] MEDS: INSULIN (LEVEMIR) 100 UNITS/ML UNITS SQ SCH (06:19)
[2017-11-30] MEDS ORDERED: INSULIN (NOVOLOG) ASPART 100 UNITS/ML 10ML VIAL ONE (06:55)
[2017-11-30 08:05] LABS: BASO % 0.7 % (0-2.0); EOS % 4.3 % (0-4.5); HEMATOCRIT 30.2 % (35.4-49); HEMOGLOBIN 9.8 GM/dL (11.7-16.9); LYMPH % 26.3 % (8-40); MCH 26.8 pg (25.7-33.7); MCHC 32.5 g/dl (32.0-35.9); MEAN CELL VOLUME 82.6 fl (80-96); MEAN PLT VOLUME 8.4 fl (7.5-11.1); MONO % 10.2 % (3.8-10.2); NEUT % 58.5 % (42.8-82.8); PLATELET COUNT 245 K/MM3 (134-434); RBC 3.66 M/mm3 (4.00-5.60); RDW 15.9 % (11.9-15.9); WHITE BLOOD COUNT 5.5 K/mm3 (4.0-10.0)
[2017-11-30 08:22] LABS: BLOOD UREA NITROGEN 47 mg/dL (7-18); CALCIUM 7.1 mg/dL (8.5-10.1); CHLORIDE 110 mmol/L (98-107); MAGNESIUM 1.8 mg/dL (1.8-2.4); POTASSIUM 4.6 mmol/L (3.5-5.1); SODIUM 141 mmol/L (136-145)
[2017-11-30 08:25] LABS: ANION GAP 11 (8-16); CO2 20 mmol/L (21-32); CREATININE 3.3 mg/dL (0.7-1.3); GLUCOSE,RANDOM 139 mg/dL (74-106); PHOSPHOROUS 3.9 mg/dL (2.5-4.9)
--- NOTE | 2017-11-30 09:05 | PN ---
Progress Note (short form) - Note Progress Note: Improving blood sugar No new complaints Mild pain at wound site Vital Signs Period Temp Pulse Resp BP Sys/Swartz Pulse Ox Last 24 Hr 97.9 F-98.8 F 76-98 18-20 134-157/71-81 97 PE: AOx3 Neck: Supple, No JVD HEENT: PERRL, EOMI Lungs: CTA CVS: S1S2 Abd: Benign EXt: Left big toe dressing CMP Sodium 141 mmol/L (136-145) 11/30/17 06:15 Potassium 4.6 mmol/L (3.5-5.1) 11/30/17 06:15 Chloride 110 mmol/L (98-107) H 11/30/17 06:15 Carbon Dioxide 20 mmol/L (21-32) L 11/30/17 06:15 Anion Gap 11 (8-16) 11/30/17 06:15 BUN 47 mg/dL (7-18) H 11/30/17 06:15 Creatinine 3.3 mg/dL (0.7-1.3) H 11/30/17 06:15 Creat Clearance w eGFR 23.15 (>60) 11/28/17 07:00 POC Glucometer 182 UNITS (80-120) 11/30/17 05:59 Random Glucose 139 mg/dL (74-106) H D 11/30/17 06:15 Hemoglobin A1c % 13.4 % (4.8-6.0) H D 11/28/17 07:00 Lactic Acid 0.9 mmol/L (0.0-2.0) 11/27/17 19:50 Calcium 7.1 mg/dL (8.5-10.1) L 11/30/17 06:15 Phosphorus 3.9 mg/dL (2.5-4.9) D 11/30/17 06:15 Magnesium 1.8 mg/dL (1.8-2.4) 11/30/17 06:15 Iron 14 ug/dL (38-169) L 11/28/17 07:00 TIBC 174 ug/dL (250-450) L 11/28/17 07:00 Iron Saturation 8 % (15-55) L 11/28/17 07:00 Ferritin 69.3 ng/ml (16.4-293.9) 11/28/17 07:00 Total Bilirubin 0.2 mg/dL (0.2-1.0) 11/28/17 07:00 AST 7 U/L (15-37) L 11/28/17 07:00 ALT 14 U/L (12-78) 11/28/17 07:00 Alkaline Phosphatase 98 U/L (45-117) 11/28/17 07:00 Creatine Kinase 77 IU/L (39-308) 11/27/17 19:50 Troponin I < 0.02 ng/ml (0.00-0.05) D 11/27/17 19:50 B-Natriuretic Peptide 2169.85 pg/ml (5-125) H 11/27/17 19:50 Total Protein 5.2 g/dl (6.4-8.2) L 11/28/17 07:00 Albumin 1.8 g/dl (3.4-5.0) L 11/28/17 07:00 Current Medications Generic Name Dose Route Start Last Admin Trade Name Freq PRN Reason Stop Dose Admin Acetaminophen 650 mg 11/28/17 13:02 11/29/17 14:29 Tylenol - PO 650 mg Q4H PRN Administration pain level 1-5 Acetaminophen 650 mg 11/28/17 13:40 Tylenol - PO Q4H PRN FEVER Aspirin 81 mg 11/29/17 10:00 11/29/17 09:55 Asa - PO 81 mg DAILY MARY Administration Atorvastatin Calcium 40 mg 11/28/17 22:00 11/29/17 21:33 Lipitor - PO 40 mg HS MARY Administration Furosemide 40 mg 11/29/17 10:00 11/29/17 09:55 Lasix - PO 40 mg DAILY MARY Administration Heparin Sodium (Porcine) 5,000 unit 11/28/17 14:00 11/30/17 06:18 Heparin - SQ 5,000 unit TID MARY Administration Hydralazine HCl 25 mg 11/28/17 14:00 11/30/17 06:18 Apresoline - PO 25 mg TID MARY Administration Metronidazole 500 mg in 100 mls @ 100 mls/hr 11/28/17 14:30 11/30/17 02:58 Flagyl 500mg Premixed Ivpb - IVPB 100 mls/hr Q8H-IV MARY Administration Piperacillin Sod/Tazobactam 50 mls @ 100 mls/hr 11/28/17 15:00 11/30/17 03:41 Sod 2.25 gm/ Dextrose IVPB 100 mls/hr Q6H-IV MARY Administration Protocol Insulin Aspart 1 vial 11/29/17 11:00 11/30/17 06:18 Novolog Vial Sliding Scale - SQ 12 units TIDAC MARY Administration Protocol Insulin Aspart 1 vial 11/29/17 22:00 11/29/17 21:34 Novolog Vial Sliding Scale - SQ 10 unit HS MARY Administration Protocol Insulin Detemir 30 units 11/29/17 22:00 11/30/17 06:19 Levemir Vial SQ 30 unit BID@0700,2200 MARY Administration Oxycodone HCl 5 mg 11/29/17 14:24 11/30/17 04:01 Roxicodone - PO 5 mg Q6H PRN Administration PAIN LEVEL 7 - 10 AP: Perineal Abscess T2DM: Improving blood sugar HTN CHF CKD Obesity Anemia Diet exercise discussed. No sugary drinks. BGM QACHS Levemir 30 units BID Novolog SS coverage Will adjust Insulin dose as appropriate IV Ax Local wound care Will F/U
[2017-11-30] MEDS: FUROSEMIDE 40 MG TABLET (FP) PO SCH (09:08)
[2017-11-30] MEDS: ASPIRIN 81 MG CHEWABLE TABLETS PO SCH (09:08)
[2017-11-30] MEDS: ACETAMINOPHEN 325 MG TABLET (FP) PO PRN (10:59)
--- NOTE | 2017-11-30 11:27 | PN ---
Progress Note, Physician History of Present Illness: POD # 2 No c/o perineal pain at present No fever/ chills Tolerating antibiotics Afebrile Wound c/s grp B strep - Current Medication List Current Medications: Active Medications Acetaminophen (Tylenol -) 650 mg PO Q4H PRN PRN Reason: pain level 1-5 Last Admin: 11/30/17 10:59 Dose: 650 mg Acetaminophen (Tylenol -) 650 mg PO Q4H PRN PRN Reason: FEVER Aspirin (Asa -) 81 mg PO DAILY [facility] Last Admin: 11/30/17 09:08 Dose: 81 mg Atorvastatin Calcium (Lipitor -) 40 mg PO HS [facility] Last Admin: 11/29/17 21:33 Dose: 40 mg Furosemide (Lasix -) 40 mg PO DAILY [facility] Last Admin: 11/30/17 09:08 Dose: 40 mg Heparin Sodium (Porcine) (Heparin -) 5,000 unit SQ TID [facility] Last Admin: 11/30/17 06:18 Dose: 5,000 unit Hydralazine HCl (Apresoline -) 25 mg PO TID [facility] Last Admin: 11/30/17 06:18 Dose: 25 mg Metronidazole (Flagyl 500mg Premixed Ivpb -) 500 mg in 100 mls @ 100 mls/hr IVPB Q8H-IV [facility] Last Admin: 11/30/17 09:57 Dose: 100 mls/hr Piperacillin Sod/Tazobactam (Sod 2.25 gm/ Dextrose) 50 mls @ 100 mls/hr IVPB Q6H-IV [facility]; Protocol Last Admin: 11/30/17 09:07 Dose: 100 mls/hr Insulin Aspart (Novolog Vial Sliding Scale -) 1 vial SQ TIDAC [facility]; Protocol Last Admin: 11/30/17 11:02 Dose: 12 units Insulin Aspart (Novolog Vial Sliding Scale -) 1 vial SQ HS [facility]; Protocol Last Admin: 11/29/17 21:34 Dose: 10 unit Insulin Detemir (Levemir Vial) 30 units SQ BID@0700,2200 [facility] Last Admin: 11/30/17 06:19 Dose: 30 unit Oxycodone HCl (Roxicodone -) 5 mg PO Q6H PRN PRN Reason: PAIN LEVEL 7 - 10 Last Admin: 11/30/17 10:58 Dose: 5 mg - Objective Vital Signs: Vital Signs Temperature 96.3 F L 11/30/17 10:00 Pulse Rate 90 11/30/17 10:00 Respiratory Rate 20 11/30/17 10:00 Blood Pressure 137/73 11/30/17 10:00 O2 Sat by Pulse Oximetry (%) 96 11/30/17 09:00 Constitutional: Yes: No Distress, Obese Eyes: Yes: Conjunctiva Clear Cardiovascular: Yes: Regular Rate and Rhythm, S1, S2 Respiratory: Yes: CTA Bilaterally Gastrointestinal: Yes: Normal Bowel Sounds, Soft, Abdomen, Obese. No: Tenderness Genitourinary: Yes: Other (perineal wound open w/o packing. No drainage or foul odor) Labs: CBC, BMP 11/30/17 06:15 11/30/17 06:15 INR, PTT INR 1.18 (0.82-1.09) H 11/28/17 07:00 Assessment/Plan POD #2 I&D perineal abscess IDDM CKD BC no growth Wound c/s grp B strep Substitute Augmentin 875mg po bid x 7d Local wound care
--- NOTE | 2017-11-30 12:45 | PN ---
Progress Note, Physician History of Present Illness: Pt seen and examined at bedside. He denies fevers or chills. He denies hematuria or dysuria. - Current Medication List Current Medications: Active Medications Acetaminophen (Tylenol -) 650 mg PO Q4H PRN PRN Reason: pain level 1-5 Last Admin: 11/30/17 10:59 Dose: 650 mg Acetaminophen (Tylenol -) 650 mg PO Q4H PRN PRN Reason: FEVER Amoxicillin/Clavulanate Potassium (Augmentin - 875mg Tablet) 1 tab PO BID@0800, 1730 [facility] Aspirin (Asa -) 81 mg PO DAILY [facility] Last Admin: 11/30/17 09:08 Dose: 81 mg Atorvastatin Calcium (Lipitor -) 40 mg PO [facility] Last Admin: 11/29/17 21:33 Dose: 40 mg Furosemide (Lasix -) 40 mg PO DAILY [facility] Last Admin: 11/30/17 09:08 Dose: 40 mg Heparin Sodium (Porcine) (Heparin -) 5,000 unit SQ TID [facility] Last Admin: 11/30/17 06:18 Dose: 5,000 unit Hydralazine HCl (Apresoline -) 25 mg PO TID [facility] Last Admin: 11/30/17 06:18 Dose: 25 mg Insulin Aspart (Novolog Vial Sliding Scale -) 1 vial SQ TIDAC [facility]; Protocol Last Admin: 11/30/17 11:02 Dose: 12 units Insulin Aspart (Novolog Vial Sliding Scale -) 1 vial SQ [facility]; Protocol Last Admin: 11/29/17 21:34 Dose: 10 unit Insulin Detemir (Levemir Vial) 30 units SQ BID@0700,2200 [facility] Last Admin: 11/30/17 06:19 Dose: 30 unit Oxycodone HCl (Roxicodone -) 5 mg PO Q6H PRN PRN Reason: PAIN LEVEL 7 - 10 Last Admin: 11/30/17 10:58 Dose: 5 mg - Objective Vital Signs: Vital Signs Temperature 96.3 F L 11/30/17 10:00 Pulse Rate 90 11/30/17 10:00 Respiratory Rate 20 11/30/17 10:00 Blood Pressure 137/73 11/30/17 10:00 O2 Sat by Pulse Oximetry (%) 96 11/30/17 09:00 Constitutional: Yes: Calm Eyes: Yes: Conjunctiva Clear HENT: Yes: Atraumatic Neck: Yes: Supple Cardiovascular: Yes: S1, S2 Respiratory: Yes: CTA Bilaterally Gastrointestinal: Yes: Normal Bowel Sounds, Soft Genitourinary: Yes: Other (perineal abscess) Musculoskeletal: Yes: WNL Edema: Yes Edema: LLE: Trace, RLE: Trace Neurological: Yes: Oriented Psychiatric: Yes: Oriented Labs: CBC, BMP 11/30/17 06:15 11/30/17 06:15 INR, PTT INR 1.18 (0.82-1.09) H 11/28/17 07:00 Problem List - Problems (1) Perineal abscess Code(s): L02.215 - CUTANEOUS ABSCESS OF PERINEUM (2) Anemia in chronic kidney disease (CKD) Code(s): N18.9 - CHRONIC KIDNEY DISEASE, UNSPECIFIED; D63.1 - ANEMIA IN CHRONIC KIDNEY DISEASE (3) CHF (congestive heart failure) Code(s): I50.9 - HEART FAILURE, UNSPECIFIED Qualifiers: Qualified Code(s): I50.9 - Heart failure, unspecified (4) CKD (chronic kidney disease) stage 3, GFR 30-59 ml/min Code(s): N18.3 - CHRONIC KIDNEY DISEASE, STAGE 3 (MODERATE) Assessment/Plan Current Medications Generic Name Dose Route Start Last Admin Trade Name Freq PRN Reason Stop Dose Admin Acetaminophen 650 mg 11/28/17 13:02 11/30/17 10:59 Tylenol - PO 650 mg Q4H PRN Administration pain level 1-5 Acetaminophen 650 mg 11/28/17 13:40 Tylenol - PO Q4H PRN FEVER Amoxicillin/Clavulanate Potassium 1 tab 11/30/17 17:30 Augmentin - 875mg Tablet PO BID@0800,1730 [facility] Aspirin 81 mg 11/29/17 10:00 11/30/17 09:08 Asa - PO 81 mg DAILY [facility] Administration Atorvastatin Calcium 40 mg 11/28/17 22:00 11/29/17 21:33 Lipitor - PO 40 mg HS [facility] Administration Furosemide 40 mg 11/29/17 10:00 11/30/17 09:08 Lasix - PO 40 mg DAILY [facility] Administration Heparin Sodium (Porcine) 5,000 unit 11/28/17 14:00 11/30/17 06:18 Heparin - SQ 5,000 unit TID [facility] Administration Hydralazine HCl 25 mg 11/28/17 14:00 11/30/17 06:18 Apresoline - PO 25 mg TID [facility] Administration Insulin Aspart 1 vial 11/29/17 11:00 11/30/17 11:02 Novolog Vial Sliding Scale - SQ 12 units TIDAC [facility] Administration Protocol Insulin Aspart 1 vial 11/29/17 22:00 11/29/17 21:34 Novolog Vial Sliding Scale - SQ 10 unit HS [facility] Administration Protocol Insulin Detemir 30 units 11/29/17 22:00 11/30/17 06:19 Levemir Vial SQ 30 unit BID@0700,2200 [facility] Administration Oxycodone HCl 5 mg 11/29/17 14:24 11/30/17 10:58 Roxicodone - PO 5 mg Q6H PRN Administration PAIN LEVEL 7 - 10 Impression 1. CKD 2. CHF 3. hx of DFU 4. hx of osteomyelitis 5. hx hyperkalemia 6. DM 7. HTN 8. obesity 9. anemia 10. hx of urinary obstruction/high post void residual 11. nephrotic range proteinuria 12. perineal abscess Plan - renal diet - cont with lasix - will need follow up with Dr Castle - cont wound care - renal diet Dr Tong
[2017-11-30 15:12] VITALS: BP 125/74; PULSE 92; TEMP 98.5
--- NOTE | 2017-11-30 15:27 | PN ---
Teaching Attending Note Name of Resident: Farzaneh Ma ATTENDING PHYSICIAN STATEMENT I saw and evaluated the patient. I reviewed the resident's note and discussed the case with the resident. I agree with the resident's findings and plan as documented. SUBJECTIVE: no fever or chills. feels much better . OBJECTIVE: NAD CV : RRR Lungs: CTAB BAD : obese , NT, ND . nL BS : perineal area with a clean wound with induration but no erythema . no discharge LE: no edema A/P: 52 y/o man with h/o DM , HTN, CKD, HLP, CHD , anemia , obesity, OM , hyperkalemia , urinary obstruction and other medical problems who presented with pain in perineal area and was found to have perineal abscess 1- Perineal abscess: improved after I&D and Abx - switch to Augmentin x 7 days - no fever or leukocytosis - f/u with sx as out pt 2- DM : need control. - dc on 40 units of Lantus BID and high dose SSI ( was on lantus 100 once a day , and 100 u of novolog TID which he was not taking regularly ) - f/u with Endocrine 3- CKD: Cr at base line 4- HTN: ? started on HXN here. will switch to Norvasc. can't place on ACEI or ARB now due to h/o hyperkalemia. switch to norvasc f/u as out pt 5- h/o D CHF: not in exa: cont home lasix 40 6- hydrocele : f/u as out pt DC home
[2017-11-30] MEDS ORDERED: AMOX TR/POT CLAV 875MG/125MG TABLETS (FP) PO SCH (17:30)
--- NOTE | 2017-11-30 20:17 | DS ---
Physical Exam: SUBJECTIVE: Patient seen and examined at bedside. Overnight, pt wound packing removed. +Sitz bath and gauze changed. Today, pt feels well. States that he would like to go home. Denies other physical complaints. OBJECTIVE: Vital Signs Period Temp Pulse Resp BP Sys/Swartz Pulse Ox Last 24 Hr 96.3 F-98.5 F 82-92 20-20 125-157/73-81 96 PHYSICAL EXAM GENERAL: The patient is awake, alert, and fully oriented, in no acute distress. HEAD: Normal with no signs of trauma. EYES: PERRL, extraocular movements intact, sclera anicteric, conjunctiva clear. ENT: Ears normal, nares patent, oropharynx clear without exudates, moist mucous membranes. NECK: Trachea midline, supple. LUNGS: Breath sounds equal, clear to auscultation bilaterally, no wheezes, no crackles, no accessory muscle use. HEART: Regular rate and rhythm, distant S1, S2 without murmur, rub or gallop. likely 2/2 body habitus ABDOMEN: Soft, obese, nontender, nondistended, normoactive bowel sounds, no guarding, no rebound PERINEUM: +gauze covering affected area, without drainage EXTREMITIES: 2+ pt pulses, warm, well-perfused, no edema. NEUROLOGICAL: Cranial nerves II through XII grossly intact. Normal speech SKIN: Warm, dry LABS Laboratory Results - last 24 hr 11/30/17 11/30/17 11/30/17 06:15 06:15 11:00 WBC 5.5 RBC 3.66 L Hgb 9.8 L Hct 30.2 L MCV 82.6 MCH 26.8 MCHC 32.5 RDW 15.9 Plt Count 245 D MPV 8.4 Absolute Neuts (auto) 3.2 Neutrophils % 58.5 D Lymphocytes % 26.3 D Monocytes % 10.2 Eosinophils % 4.3 D Basophils % 0.7 Nucleated RBC % 0 Sodium 141 Potassium 4.6 Chloride 110 H Carbon Dioxide 20 L Anion Gap 11 BUN 47 H Creatinine 3.3 H POC Glucometer 177 Random Glucose 139 H D Calcium 7.1 L Phosphorus 3.9 D Magnesium 1.8 Random Vancomycin BG monitoring 11/27/17 11/28/17 11/28/17 19:50 07:00 07:00 Random Glucose 400 H* D 230 H D Hemoglobin A1c % 13.4 H D 06/12/18 06/12/18 06/13/18 00:44 06:15 06:15 Random Glucose 492 H* D 357 H* D 139 H D Hemoglobin A1c % Additional testing 11/27/17 11/27/17 19:50 21:20 B-Natriuretic Peptide 2169.85 H Urine Protein 3+ H Urine Glucose (UA) 3+ H Urine Ketones Negative Urine Blood Negative Urine Nitrite Negative Urine Bilirubin Negative Urine Urobilinogen Negative Ur Leukocyte Esterase Negative Microbiology 11/28/17 13:20 Wound-Other Gram Stain - Final 11/28/17 13:20 Wound-Other Wound Culture - Final Strep Agalactiae Group B 11/28/17 04:36 Abscess Gram Stain - Final 11/28/17 04:36 Abscess Wound Culture - Final Strep Agalactiae Group B Staphylococcus Coagulase Neg 11/27/17 19:50 Blood - Peripheral Venous Blood Culture - Preliminary NO GROWTH OBTAINED AFTER 72 HOURS, INCUBATION TO CONTINUE FOR 2 DAYS. 11/27/17 19:50 Blood - Peripheral Venous Blood Culture - Preliminary NO GROWTH OBTAINED AFTER 72 HOURS, INCUBATION TO CONTINUE FOR 2 DAYS. IMAGING 11/27/17: Scrotal, pelvic sono: bilateral hydroceles with no evidence of torsion or acute testicular pathology. 2. findings suspicious for a L perineal abscess. Clinical correlation and follow -up recommended. 11/28/17: Pelvic CT without contrast: 1. mild bilateral pelvic and inguinal lymphadenopathy. 2. no evidence of perineal abscess. 3. sclerotic changes of the R iliac bone. clinical correlation and follow-up recommended HOSPITAL COURSE: Date of Admission:11/28/17 Date of Discharge: 11/30/17 Admit diagnosis: perineal abscess 52M w/ hx of recurrent abscesses, NIDDM, CKD, asthma, HTN, HLD, lower back pain , and CHF who presented with a perineal abscess for three days. Per pt, he first noticed it 3 days prior to admission in his perineal area. Since then, it became progressively painful, larger, firmer, and erythematous. He stated that the pain was worsened by walking. He took an old prescription of doxycyline q12h two days prior without improvement. Pt endorsed one episode of nausea and NBNB emesis and an episode of diarrhea two days prior, but stated that this is "not unusual" for him. Pt reported medication non-adherence, only taking certain medications when he feels that he needs them. He denied fevers, chills, chest pain, SOB, abdominal pain, constipation, dysuria, drainage from abscess, and prior trauma to area. Of note, pt had 2 prior episodes of abscesses. One was located in his right groin, and another in his gluteal cleft. One was treated with an I&D, and the other was treated with abx and warm compresses. Pt admitted for mgmt of perineal abscess. Pt was managed on the floor after I&D (performed 11/28/17) with Dr. Martinez. He was found to have a 7x3cm median raphe abscess with 1x2cm necrotic subcutaneous tissue. Pt received flagyl 500mg IVPB q8h qd, as well as zosyn 2.25 gm IVPB q6h qd for 2 day course. On the third day, pt was transitioned to augmentin 875mg PO BID of which he will take for one week. He will continue sitz baths as needed , and is recommended tylenol PRN for pain control. He will follow up with his surgeon in 1 week. While on the floor, pt with hyperglycemia (ranging into 400's, 500's) and poorly controlled DM (A1c ~13.4). He was seen by endocrinology, and his insulin regimen was changed, improving his BG values. Pt was started on levemir 30U SQ BID, as well as ISS TIDAC. On d/c, he is recommended endocrine f/u with Dr. Mckenna and was counseled at length on healthy dietary habits, checking BG, and adherence to meds. Expressed verbal understanding. on d/c he is to take lantus 40U twice a day, as well as continued ISS TIDAC. Concerning his HTN, pt was also started on norvasc 5mg PO qd, and will undergo further renal testing with his PCP. Upon this check, he may be able to be switched to an RAVINDER- if he is without hyperkalemia. For his CHF, he will continue his home dose of lasix 40mg PO qd. Upon d/c, his Cr is at his baselnie 2.9-3. However, he is recommended f/u with Dr. Tong. Minutes to complete discharge: 44 Discharge Summary Reason For Visit: ACESS OF PERINEUM Condition: Improved - Instructions Diet, Activity, Other Instructions: You were in the hospital because you had an abscess in your groin area. You had an incision and drainage procedure done by surgeon, Dr. Martinez. During this time, you were on IV antibiotics. Your visit You were seen by the surgery, infection, and medicine teams Medications You may continue your home medications as follows: -aspirin 81mg daily -lasix 40mg daily 1) We have changed your diabetes regimen as we discussed. -Please take 40 units of Lantus insulin twice a day: in the AM and before bedtime -Before meals, take insulin sliding scale as based on your blood sugar level. You can use your glucose machine at home. Blood sugar level #Units to administer 101-150 8 units 151-200 12 units 201-250 16 units 251-300 18 units 301-350 20 units 351-400 22 units >400 24 units and call your primary doctor. -This will be in place of your current home insulin treatment as we discussed. 2) You have also been started on the following medications during your stay: -a blood pressure medication: norvasc 5mg daily. When you follow up with your primary care doctor in 1 week, you will need to have your kidney function checked. Then they may switch you to another medication called lisinopril. -cholesterol medication: Lipitor 40mg take at night daily 3) You will also take an antibiotic for your abscess infection. -Augmentin 875mg (one tablet) twice a day, for seven days. You will start this tomorrow. 4) You may take Tylenol 650mg every six hours as needed for pain. Wound care -Try and keep the affected area clean. You may use ABD pads, and gauze. We will give you pads. You should change them daily if possible. -Please also use a sitz bath as needed. Physician follow up -Please follow up with the following: -your primary care physician, Dr. Missy Huerta - 1 week -An real estate paralegal (diabetes doctor), Dr. Mckenna who saw you in the hospital - 1 week -your surgeon, Dr. Martinez - 1 week -collar stitcher, Dr. Tong- 1 week - please see a urologist for hydrocele. If you develop fever, chest pain, or shortness of breath, please go to the hospital for further evaluation. We hope you feel better soon. Referrals: Go,Jonah, MD [Staff Physician] - 1 Week Andre Tong MD [Staff Physician] - 1 Week Missy Huerta [Non Staff, Medical] - 1 Week Jcaqueline Huerta MD [Staff Physician] - 1 Week Alondra May MD [Staff Physician] - 1 Week Disposition: HOME - Home Medications Comprehensive Discharge Medication List: Ambulatory Orders Aspirin [ASA -] 81 mg PO DAILY 07/27/14 Furosemide [Lasix -] 40 mg PO DAILY #30 tablet 07/31/16 Acetaminophen [Tylenol .Regular Strength -] 650 mg PO Q6H PRN #30 tablet Amlodipine Besylate [Norvasc -] 5 mg PO DAILY #30 tablet 11/30/17 Amox-Tr/K Cl [Augmentin 875-125mg Tablet -] 1 tab PO BID@0800,1730 #14 tablet Atorvastatin Ca [Lipitor] 40 mg PO HS #30 tablet 11/30/17 Insulin Glargine,Hum.rec.anlog [Lantus] 40 unit SQ BID 30 Days vial 11/30/17 Insulin Sliding Scale [Novolog Vial Sliding Scale -] 1 vial SQ TIDAC 30 Days units 11/30/17 Miscellaneous Drug Not In Syst [Outpatient Lab Test] 1 each ASDIR #1 misc This patient is new to me today: No Emergency Visit: No Critical Care patient: No - Discharge Referral Referred to [facility] Med P.C.: No
== END 2017-11-30 15:56 | disposition home or self-care (01) | DRG 383 ==
LOC: JER 18:33 → JERBED 11-28 00:26 → J7W 11-28 03:17
PROVIDERS: ADMIT Internal Medicine; ATTEND Internal Medicine
PROC: 0JBB0ZZ Excision of Perineum Subcutaneous Tissue and Fascia, Open Approach (ICD-10-PCS; 2017-11-28)
PROC: 0W9M0ZX Drainage of Male Perineum, Open Approach, Diagnostic (ICD-10-PCS; principal; 2017-11-28 11:00)
DX: L02.215 Cutaneous abscess of perineum (principal); I13.0 Hypertensive heart and chronic kidney disease with heart failure and stage 1 through stage 4 chronic kidney disease, or unspecified chronic kidney disease; N43.3 Hydrocele, unspecified; E78.5 Hyperlipidemia, unspecified; E11.40 Type 2 diabetes mellitus with diabetic neuropathy, unspecified; E11.21 Type 2 diabetes mellitus with diabetic nephropathy; D63.1 Anemia in chronic kidney disease; E11.65 Type 2 diabetes mellitus with hyperglycemia; M54.5 Low back pain; L03.315 Cellulitis of perineum; E66.01 Morbid (severe) obesity due to excess calories; Z68.42 Body mass index [BMI] 45.0-49.9, adult; R80.8 Other proteinuria; J45.909 Unspecified asthma, uncomplicated; R59.1 Generalized enlarged lymph nodes; I45.10 Unspecified right bundle-branch block; E11.22 Type 2 diabetes mellitus with diabetic chronic kidney disease; N18.3 Chronic kidney disease, stage 3 (moderate); I50.9 Heart failure, unspecified; Z79.4 Long term (current) use of insulin
CPT/HCPCS: 36415; 72192-TC; 76856-TC; 76870-TC; 80048; 80053; 81003; 81015; 82550; 82728; 82962; 83036; 83540; 83550; 83605; 83735; 83880; 84100; 84484; 85025; 85610; 85730; 86850; 86900; 86901; 87040; 87070; 87186; 87205; 93005; 93010; 94640; 94760; 99284-25; G0480; J1644; J7030

== ENCOUNTER 2018-01-09 01:18 | Inpatient (IN) | payer OTHER ==
[2018-01-09] MEDS ORDERED: SODIUM CHLORIDE 1,000 ML IV STA (01:53)
--- NOTE | 2018-01-09 01:53 | PDOC ---
Attending Attestation - HPI HPI: 01/09/18 03:28 The patient is a 52 year old male, with a significant past medical history of IDDM (poorly controlled), prior MRSA infection, and perianal abscess last month (admitted here to [facility] for surgical management and IV antibiotics), who presents to the emergency department with, a week and half of perianal pain and bilateral swelling. She reports a 1-2 days of fever, chills, and malaise. His symptoms are similar to his abscess last month. He attempted to open and drain it on his own, however, had minimal drainage. He denies any recent headache or dizziness. He denies any recent nausea, vomit, diarrhea or constipation. He denies any recent chest pain or shortness of breath. He denies any recent dysuria, frequency, urgency or hematuria. Allergies: NKA Social History: Nonsmoker. Denies EtOH use and recreational drug use. Primary Care Physician: Dr. Missy Huerta - Physicial Exam PE: GENERAL: Obese. Awake, alert, and fully oriented, in no acute distress HEAD: No signs of trauma EYES: PERRLA, EOMI, sclera anicteric, conjunctiva clear ENT: Auricles normal inspection, hearing grossly normal, nares patent, oropharynx clear without exudates. Moist mucosa NECK: Normal ROM, supple, no lymphadenopathy, JVD, or masses LUNGS: Breath sounds equal, clear to auscultation bilaterally. No wheezes, and no crackles HEART: Regular rate and rhythm, normal S1 and S2, no murmurs, rubs or gallops ABDOMEN: Soft, nontender, normoactive bowel sounds. No guarding, no rebound. No masses RECTAL: Agree with resident. EXTREMITIES: Normal range of motion, no edema. No clubbing or cyanosis. No cords, erythema, or tenderness NEUROLOGICAL: Cranial nerves II through XII grossly intact. Normal speech, normal gait SKIN: Warm, Dry, normal turgor, no rashes or lesions noted. <Lisa Palma - Last Filed: 01/09/18 06:04> - Resident Resident Name: Cherie Meier - ED Attending Attestation I have performed the following: I have examined & evaluated the patient, The case was reviewed & discussed with the resident, I agree w/resident's findings & plan - Physicial Exam PE: 01/09/18 04:10 Agree with resident exam. - Medical Decision Making 01/09/18 03:23 Pt will be admitted for perineal buttock infections/abscesses; he will be treated with vanc and levaquin as he has a hx of MRSA and he has been sensitive to those meds in the past. <Yue Little - Last Filed: 01/13/18 19:31> Attestations - Attestations 01/09/18 03:28 Documentation prepared by Lisa Palma, acting as medical assisting program director for Yue Little MD. <Lisa Palma - Last Filed: 01/09/18 06:04>
[2018-01-09 02:35] LABS: BASO % 1.2 % (0-2.0); HEMATOCRIT 31.4 % (35.4-49); HEMOGLOBIN 9.9 GM/dL (11.7-16.9); LYMPH % 12.3 % (8-40); MCH 25.9 pg (25.7-33.7); MCHC 31.5 g/dl (32.0-35.9); MEAN CELL VOLUME 82.1 fl (80-96); MEAN PLT VOLUME 8.2 fl (7.5-11.1); MONO % 6.1 % (3.8-10.2); NEUT % 78.4 % (42.8-82.8); PLATELET COUNT 327 K/MM3 (134-434); RBC 3.83 M/mm3 (4.00-5.60); RDW 15.7 % (11.9-15.9); WHITE BLOOD COUNT 12.2 K/mm3 (4.0-10.0)
[2018-01-09 02:42] LABS: VENOUS PC02 39.7 mmHg (38-52); VENOUS PH 7.33 (7.32-7.42)
--- NOTE | 2018-01-09 02:44 | PDOC ---
History of Present Illness - General Chief Complaint: Abscess Boil Stated Complaint: ANAL ABCESS Time Seen by Provider: 01/09/18 01:50 History Source: Patient Exam Limitations: No Limitations - History of Present Illness Initial Comments: This is a 52 YOM with h/o perianal abscess last month (admitted here to [facility] for surgical management and IV antibiotics), prior MRSA infection, poorly controlled IDDM, morbid obesity who p/w worsening perianal pain and swelling on both sides for the past 1.5 weeks, with fever/chills/shakes/malaise for the past 1-2 days. He states this feels the same as his abscess last month. He attempted to open and drain the abscesses but got minimal drainage. He denies any anal discharge or bleeding, burning on urination, strong smelling urine, headache, lightheadedness, CP, SOB, abdominal pain, known hernia, testicular pain/swelling, penile pain or discharge or lesions. Past History - Past Medical History Allergies/Adverse Reactions: Allergies Allergy/AdvReac Type Severity Reaction Status Date / Time No Known Allergies Allergy Verified 01/09/18 01:46 Home Medications: Ambulatory Orders Aspirin [ASA -] 81 mg PO DAILY 07/27/14 Furosemide [Lasix -] 40 mg PO DAILY #30 tablet 07/31/16 Acetaminophen [Tylenol .Regular Strength -] 650 mg PO Q6H PRN #30 tablet Amlodipine Besylate [Norvasc -] 5 mg PO DAILY #30 tablet 11/30/17 Amox-Tr/K Cl [Augmentin 875-125mg Tablet -] 1 tab PO BID@0800,1730 #14 tablet Atorvastatin Ca [Lipitor] 40 mg PO HS #30 tablet 11/30/17 Insulin Glargine,Hum.rec.anlog [Lantus] 40 unit SQ BID 30 Days vial 11/30/17 Insulin Sliding Scale [Novolog Vial Sliding Scale -] 1 vial SQ TIDAC 30 Days units 11/30/17 Anemia: No Asthma: Yes Cancer: No Cardiac Disorders: No CVA: No COPD: No CHF: Yes Dementia: No Diabetes: Yes (IDDM/ NEUROPATHY OF ASHLEY FEET) GI Disorders: No Disorders: Yes (ACUTE RENAL INSUFFICIENCY) HTN: Yes Hypercholesterolemia: Yes Liver Disease: No Seizures: No Thyroid Disease: No - Surgical History Abdominal Surgery: No Appendectomy: No Cardiac Surgery: No Cholecystectomy: No Lung Surgery: No Neurologic Surgery: No Orthopedic Surgery: Yes (R knee surgery) - Immunization History Immunization Up to Date: No - Suicide/Smoking/Psychosocial Hx Smoking Status: No Smoking History: Never smoked Have you smoked in the past 12 months: No Number of Cigarettes Smoked Daily: 0 Cigars Per Day: 0 Hx Alcohol Use: No Drug/Substance Use Hx: No Substance Use Type: None Hx Substance Use Treatment: No Review of Systems - Review of Systems Able to Perform ROS?: Yes Constitutional: Yes: Chills, Fever, Malaise. No: Unexplained wgt Loss HEENTM: No: Nose Congestion, Throat Pain Respiratory: No: Cough, Shortness of Breath Cardiac (ROS): No: Chest Pain, Palpitations ABD/GI: Yes: Other (perianal swelling and pain and redness). No: Constipated, Diarrhea, Nausea, Rectal Bleeding, Vomiting, Tarry Stools : No: Burning, Dysuria, Testicular Swelling, Testicular Pain Musculoskeletal: No: Back Pain, Neck Pain Integumentary: No: Bruising, Rash Neurological: No: Headache, Numbness, Tingling, Weakness, Dizziness Endocrine: No: Unexplained Weight Gain, Unexplained Weight Loss *Physical Exam - Vital Signs Last Vital Signs Temp Pulse Resp BP Pulse Ox 101.4 F H 104 H 20 134/63 97 01/09/18 01:44 01/09/18 01:44 01/09/18 01:44 01/09/18 01:44 01/09/18 01:44 - Physical Exam General Appearance: Yes: Nourished, Obese (uncomfortable appearing adult male answering questions appropriately). No: Apparent Distress HEENT: positive: EOMI, ANITA, Normal ENT Inspection, Normal Voice, Hearing Grossly Normal. negative: Scleral Icterus (R), Scleral Icterus (L), Nasal Congestion Neck: positive: Trachea midline, Supple. negative: Tender, Rigid Respiratory/Chest: positive: Lungs Clear, Normal Breath Sounds. negative: Respiratory Distress, Crackles, Rhonchi, Stridor, Wheezing Cardiovascular: positive: Regular Rhythm, Regular Rate, S1, S2, Edema ( nonpitting edema). negative: JVD, Murmur Gastrointestinal/Abdominal: positive: Normal Bowel Sounds, Soft. negative: Tender, Organomegaly, Pulsatile Mass, Guarding Rectal Exam: positive: other (diffuse soft tissue swelling, erythema, warmth, and induration to gluteal cleft on either side of the anus with fluctuant lesions at 2 and 9 o'clock from the anus which are >3 cm from the anus, no active drainage) Musculoskeletal: positive: Normal Inspection. negative: Decreased Range of Motion, Vertebral Tenderness Extremity: positive: Normal Capillary Refill, Normal Inspection, Normal Range of Motion. negative: Tender, Cyanosis Integumentary: positive: Normal Color, Dry, Warm, Other (abscesses to perianal area as noted above). 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 States he has previously had MRSA, is a poorly controlled IDDM patient, had perianal abscess last month. Had to be taken to the OR last month here at [facility], was admitted, on abx, symptoms had resolved. Initial Vital Signs Temp Pulse Resp BP Pulse Ox 101.4 F H 104 H 20 134/63 97 01/09/18 01:44 01/09/18 01:44 01/09/18 01:44 01/09/18 01:44 01/09/18 01:44 Exam: As noted in Physical Exam section. DDX IBNLT: Simple abscess, cellulitis without abscess, MRSA infection, Harjinder gangrene, folliculitis, hydradenitis suppurativa, lymph node W/U ordered: Labs as noted below from sepsis order set, EKG, CXR, Pelvis CT. TX ordered: Ofirmev, Morphine, Levaquin, Vancomycin Laboratory Tests 01/09/18 01/09/18 01/09/18 01:55 01:55 01:55 WBC 12.2 H RBC 3.83 L Hgb 9.9 L Hct 31.4 L MCV 82.1 MCH 25.9 MCHC 31.5 L RDW 15.7 Plt Count 327 D MPV 8.2 Absolute Neuts (auto) 9.6 Neutrophils % 78.4 D Lymphocytes % 12.3 D Monocytes % 6.1 Eosinophils % 2.0 Basophils % 1.2 Nucleated RBC % 0 PT with INR 12.90 INR 1.14 PTT (Actin FS) 36.3 VBG pH 7.33 POC VBG pCO2 39.7 POC VBG pO2 29.0 Mixed VBG HCO3 20.3 Sodium Potassium Chloride Carbon Dioxide Anion Gap BUN Creatinine Creat Clearance w eGFR Random Glucose Lactic Acid Calcium Total Bilirubin AST ALT Alkaline Phosphatase Troponin I Total Protein Albumin Blood Type Antibody Screen 01/09/18 01/09/18 01/09/18 01:55 01:55 02:24 WBC RBC Hgb Hct MCV MCH MCHC RDW Plt Count MPV Absolute Neuts (auto) Neutrophils % Lymphocytes % Monocytes % Eosinophils % Basophils % Nucleated RBC % PT with INR INR PTT (Actin FS) VBG pH POC VBG pCO2 POC VBG pO2 Mixed VBG HCO3 Sodium Cancelled Potassium Cancelled Chloride Cancelled Carbon Dioxide Cancelled Anion Gap Cancelled BUN Cancelled Creatinine Cancelled Creat Clearance w eGFR Cancelled Random Glucose Cancelled Lactic Acid 1.0 Calcium Cancelled Total Bilirubin Cancelled AST Cancelled ALT Cancelled Alkaline Phosphatase Cancelled Troponin I Total Protein Cancelled Albumin Cancelled Blood Type Cancelled Antibody Screen Cancelled 01/09/18 03:35 WBC RBC Hgb Hct MCV MCH MCHC RDW Plt Count MPV Absolute Neuts (auto) Neutrophils % Lymphocytes % Monocytes % Eosinophils % Basophils % Nucleated RBC % PT with INR INR PTT (Actin FS) VBG pH POC VBG pCO2 POC VBG pO2 Mixed VBG HCO3 Sodium 140 Potassium 5.0 Chloride 113 H Carbon Dioxide 20 L Anion Gap 7 L BUN 37 H Creatinine 2.5 H Creat Clearance w eGFR 27.47 Random Glucose 88 D Lactic Acid Calcium 7.8 L Total Bilirubin 0.1 L AST 7 L ALT 14 Alkaline Phosphatase 101 Troponin I 0.03 D Total Protein 5.5 L Albumin 1.7 L Blood Type Antibody Screen CT Pelvis WO Contrast: faint soft tissue stranding to the posterior buttocks but no abscess or focal fluid collection. Reassessment: Exam unchanged, patient states concerned he hasn't eaten anything. He states he took his normal Humalog before coming in. FSBG ordered, in the 70s. Patient drinks orange juice with resolution of symptoms. ADMIT The Pt is unsafe for discharge at this time. They require further hospital observation, workup, and treatment. Microblog sent to [facility] for admission. Spoke with admitting team correspondence representative (Bryan Guerrier), in agreement Pt to be admitted to Med/Surg. Decision to Admit order placed to [facility] covering attending Dr. Murillo. *DC/Admit/Observation/Transfer Diagnosis at time of Disposition: Cellulitis of perineum CKD (chronic kidney disease) Qualifiers: Chronic kidney disease stage: unspecified stage Qualified Code(s): N18.9 - Chronic kidney disease, unspecified Sepsis Qualifiers: Sepsis type: sepsis due to unspecified organism Qualified Code(s): A41.9 - Sepsis, unspecified organism - Discharge Dispostion Condition at time of disposition: Guarded Decision to Admit order: Yes - Referrals - Patient Instructions - Post Discharge Activity
[2018-01-09] MEDS ORDERED: VANCOMYCIN 2,000 MG in DEXTROSE 5%-WATER - 250 ML IVPB ONE (02:46)
[2018-01-09 02:50] LABS: INR 1.14 (0.82-1.09); PROTHROMBIN TIME (PATIENT) 12.9 SEC (9.7-13.0)
[2018-01-09] MEDS ORDERED: morphine CARPU-JECT 4 MG/1 ML DISP.SYRIN IVPUSH ONE (02:50)
[2018-01-09] MEDS ORDERED: ACETAMINOPHEN 1000 MG/100 ML VIAL (NON FORMULARY) IVPB ONE (02:51)
[2018-01-09 02:53] LABS: ACTIVATED PTT 36.3 SECONDS (25.2-36.5)
[2018-01-09] MEDS ORDERED: morphine SULFATE 4 MG/ML VIAL ONE (03:06)
[2018-01-09] MEDS ORDERED: VANCOMYCIN 2,000 MG in DEXTROSE 5%-WATER - 500 ML IVPB ONE (03:15)
[2018-01-09 04:15] LABS: ALBUMIN 1.7 g/dl (3.4-5.0); ANION GAP 7 (8-16); BLOOD UREA NITROGEN 37 mg/dL (7-18); CALCIUM 7.8 mg/dL (8.5-10.1); CHLORIDE 113 mmol/L (98-107); CO2 20 mmol/L (21-32); CREATININE 2.5 mg/dL (0.7-1.3); GLUCOSE,RANDOM 88 mg/dL (74-106); SGOT/AST 7 U/L (15-37); SGPT/ALT 14 U/L (12-78); SODIUM 140 mmol/L (136-145)
[2018-01-09 04:19] LABS: ALK PHOS 101 U/L (45-117); BILIRUBIN,TOTAL 0.1 mg/dL (0.2-1.0); TOT PROT 5.5 g/dl (6.4-8.2)
--- NOTE | 2018-01-09 06:21 | PN ---
Teaching Attending Note Name of Resident: Bang Hand ATTENDING PHYSICIAN STATEMENT I saw and evaluated the patient. I reviewed the resident's note and discussed the case with the resident. I agree with the resident's findings and plan as documented. SUBJECTIVE: Patient is a 52 year old man with history of perianal abscess last month ( admitted here to [facility] for surgical management and IV antibiotics), prior MRSA infection, poorly controlled IDDM, morbid obesity who presents with perianal pain and swelling on both sides for the past 1.5 weeks, with fever and chills as well as malaise for the past 2 days. He states this feels the same as his abscess last month. He attempted to open and drain the abscesses but got minimal drainage. He denies any anal discharge or bleeding, burning on urination , abdominal pain, or bloody stool. OBJECTIVE: Morbidly obese, alert and in no acute distress Vital Signs Period Temp Pulse Resp BP Sys/Swartz Pulse Ox Last 24 Hr 98.3 F-101.4 F 84-104 18-20 128-134/55-63 97-98 HEENT: No Jaundice, eye redness or discharge, PERRLA, EOMI. Normocephalic, atraumatic. External ears are normal and hearing is grossly intact. No nasal discharge. Neck: Supple, nontender. No palpable adenopathy or thyromegaly. No JVD Chest: Good effort. Clear to auscultation and percussion. Heart: Regular. No S3, rub or murmur Abdomen: Not distended, soft, nontender and no HSM. No rebound or guarding. Normoactive bowel sounds. Ext: Peripheral pulses intact. Non pitting leg edema. Rectal exam revealed tender soft tissue swelling in both gluteal folds close to the cleft, with erythema at the apex and fluctuant with no active drainage Skin: Warm and dry. No petechiae, rash or ecchymosis. Neuro: Alert. Oriented x3. CN 2-12 grossly intact. Sensation grossly intact in all four extremities and DTR are symmetric. Home Medications Medication Instructions Recorded Aspirin [ASA -] 81 mg PO DAILY 07/27/14 Furosemide [Lasix -] 40 mg PO DAILY #30 tablet 07/31/16 Acetaminophen [Tylenol .Regular 650 mg PO Q6H PRN #30 tablet 11/30/17 Strength -] Amlodipine Besylate [Norvasc -] 5 mg PO DAILY #30 tablet 11/30/17 Amox-Tr/K Cl [Augmentin 875-125mg 1 tab PO BID@0800,1730 #14 tablet 11/30/17 Tablet -] Atorvastatin Ca [Lipitor] 40 mg PO HS #30 tablet 11/30/17 Insulin Glargine,Hum.rec.anlog 40 unit SQ BID 30 Days vial 11/30/17 [Lantus] Insulin Sliding Scale [Novolog 1 vial SQ TIDAC 30 Days units 11/30/17 Vial Sliding Scale -] Abnormal Lab Results 01/09/18 01/09/18 01:55 03:35 WBC 12.2 H RBC 3.83 L Hgb 9.9 L Hct 31.4 L MCHC 31.5 L Chloride 113 H Carbon Dioxide 20 L Anion Gap 7 L BUN 37 H Creatinine 2.5 H Calcium 7.8 L Total Bilirubin 0.1 L AST 7 L Total Protein 5.5 L Albumin 1.7 L ASSESSMENT AND PLAN: 1. Sepsis due to Perirectal Cellulitis and Abscesses - Though the preliminary CT report indicates there is no clear abscess, the physical examination is strongly suggestive of abscesses in both gluteal clefts - possibly in the early stages. Was started on Vancomycin but we will switch to Clindamycin 600 mg IV q 6 hours (to protect his already significantly compromised kidney function), and Zosyn (adjusted for GFR). Warm compress as well as sitz bath may enhance "maturation" of abscess to permit drainage. Give IV NS at 100 ml/hour and Probiotics once daily. Consult ID and surgery. 2. CKD with severe hypoalbuminemia - CKD may be due to diabetic nephropathy, but his very low albumin is unusual for diabetic nephropathy - suggesting that he may have another explanation for nephrosis such as FSGS (focal segmental glomurulosclerosis) associated with obesity. Alternatively, recurrent infections may explain severely depressed albumin. Consult nephrology and avoid nephrotoxic agents such as NSAIDS, aminoglycosides, contrast dyes and certain alternative medicine products. 3. DM - For at least the next 24 hours, we will hold the home diabetes drugs and implement sliding scale insulin regimen. Provide comprehensive diabetes care with patient teaching and counseling about the importance of euglycemia, eye care and foot care. 4. Anemia - Likely multifactorial. Do basic anemia work up including serial stool guaiacs, reticulocyte count and iron studies. Will need Procrit therapy soon, to preemept blood transfusions in the future. 5. Morbid Obesity - Will provide patient all the necessary assistance , counseling and positive reinforcement to facilitate weight loss. Consult sodium chlorite operator. 6. DVT prophylaxis - Heparin 5000u sq tid. 7. Advance directives - Full code
--- NOTE | 2018-01-09 07:24 | HP ---
CHIEF COMPLAINT: PCP: HISTORY OF PRESENT ILLNESS: 52 yo M PMH of IDDM (poorly controlled), HTN, HLD, CHF, CKD, prior MRSA infection, and perianal abscess last month (admitted here to [facility] for surgical management and IV antibiotics), who presents to the emergency department with, a week and half of perianal pain and bilateral swelling. He reports a 1-2 days of fever (99.1) and malaise. His symptoms are similar to his abscess last month. He attempted to open and drain it on his own, however, had minimal drainage. He denies any recent chills, n/v/d, abd pain, numb, tingling, sick contacts, travel, urinary sxs or bloody stools Primary Care Physician: Dr. Missy Huerta ER course was notable for: (1)vanc, levaquin, morphine/tylenol (2) (3) Recent Travel: PAST MEDICAL HISTORY: perianal abscess last month (admitted here to [facility] for surgical management and IV antibiotics) was tx w/ flagyl zosyn and DCd w/ augmentin PAST SURGICAL HISTORY: Social History: Smoking:denies Alcohol:denies Drugs: denies Family History:mom HTN, dad DM Allergies No Known Allergies Allergy (Verified 01/09/18 01:46) HOME MEDICATIONS: Home Medications Medication Instructions Recorded Aspirin [ASA -] 81 mg PO DAILY 07/27/14 Furosemide [Lasix -] 40 mg PO DAILY #30 tablet 07/31/16 Acetaminophen [Tylenol .Regular 650 mg PO Q6H PRN #30 tablet 11/30/17 Strength -] Amlodipine Besylate [Norvasc -] 5 mg PO DAILY #30 tablet 11/30/17 Amox-Tr/K Cl [Augmentin 875-125mg 1 tab PO BID@0800,1730 #14 tablet 11/30/17 Tablet -] Atorvastatin Ca [Lipitor] 40 mg PO HS #30 tablet 11/30/17 Insulin Glargine,Hum.rec.anlog 40 unit SQ BID 30 Days vial 11/30/17 [Lantus] Insulin Sliding Scale [Novolog 1 vial SQ TIDAC 30 Days units 11/30/17 Vial Sliding Scale -] REVIEW OF SYSTEMS reviewed in HPI PHYSICAL EXAMINATION Vital Signs - 24 hr 07/23/18 07/23/18 07/23/18 01:44 04:22 06:17 Temperature 101.4 F H 98.3 F Pulse Rate 104 H Pulse Rate [ 84 Right Radial] Respiratory 20 18 Rate Blood Pressure 134/63 Blood Pressure 128/55 [Right Arm] O2 Sat by Pulse 97 98 Oximetry (%) GENERAL: Awake, alert, and fully oriented, in no acute distress. Obese HEAD: Normal with no signs of trauma. EYES: PERRLA, extraocular movements intact, sclera anicteric, conjunctiva clear. No lid lag. EARS, NOSE, THROAT: Ears normal, nares patent, oropharynx clear without exudates. Moist mucous membranes. NECK: Normal range of motion, supple without lymphadenopathy, JVD, or masses. LUNGS: Breath sounds equal, clear to auscultation bilaterally. No wheezes, and no crackles. No accessory muscle use. HEART: Regular rate and rhythm, normal S1 and S2 without murmur, rub or gallop. ABDOMEN: Soft, nontender, not distended, normoactive bowel sounds, no guarding, no rebound, no masses. No hepatomegaly or splenomegaly. MUSCULOSKELETAL: Normal range of motion at all joints. No bony deformities or tenderness. No CVA tenderness. UPPER EXTREMITIES: 2+ pulses, warm, well-perfused. No cyanosis. No clubbing. No peripheral edema. LOWER EXTREMITIES: 2+ pulses, warm, well-perfused. No calf tenderness. No peripheral edema. b/l decreseased sensation in LE from ankle and inferior. L big toe ulcer Rectal: Rectal exam revealed tender soft tissue swelling in both post inferior gluteal folds close to the cleft, with erythema at the apex and fluctuant with no active drainage NEUROLOGICAL: Cranial nerves II-XII intact. Normal speech. SKIN: Warm, dry, normal turgor, no rashes or lesions noted, normal capillary refill. Laboratory Results - last 24 hr 01/09/18 01/09/18 01/09/18 01:55 01:55 01:55 WBC 12.2 H RBC 3.83 L Hgb 9.9 L Hct 31.4 L MCV 82.1 MCH 25.9 MCHC 31.5 L RDW 15.7 Plt Count 327 D MPV 8.2 Absolute Neuts (auto) 9.6 Neutrophils % 78.4 D Lymphocytes % 12.3 D Monocytes % 6.1 Eosinophils % 2.0 Basophils % 1.2 Nucleated RBC % 0 PT with INR 12.90 INR 1.14 PTT (Actin FS) 36.3 VBG pH 7.33 POC VBG pCO2 39.7 POC VBG pO2 29.0 Mixed VBG HCO3 20.3 Sodium Potassium Chloride Carbon Dioxide Anion Gap BUN Creatinine Creat Clearance w eGFR POC Glucometer Random Glucose Lactic Acid Calcium Total Bilirubin AST ALT Alkaline Phosphatase Troponin I Total Protein Albumin Blood Type Antibody Screen 01/09/18 01/09/18 01/09/18 01:55 01:55 02:24 WBC RBC Hgb Hct MCV MCH MCHC RDW Plt Count MPV Absolute Neuts (auto) Neutrophils % Lymphocytes % Monocytes % Eosinophils % Basophils % Nucleated RBC % PT with INR INR PTT (Actin FS) VBG pH POC VBG pCO2 POC VBG pO2 Mixed VBG HCO3 Sodium Cancelled Potassium Cancelled Chloride Cancelled Carbon Dioxide Cancelled Anion Gap Cancelled BUN Cancelled Creatinine Cancelled Creat Clearance w eGFR Cancelled POC Glucometer Random Glucose Cancelled Lactic Acid 1.0 Calcium Cancelled Total Bilirubin Cancelled AST Cancelled ALT Cancelled Alkaline Phosphatase Cancelled Troponin I Total Protein Cancelled Albumin Cancelled Blood Type Cancelled Antibody Screen Cancelled 01/09/18 01/09/18 03:35 04:45 WBC RBC Hgb Hct MCV MCH MCHC RDW Plt Count MPV Absolute Neuts (auto) Neutrophils % Lymphocytes % Monocytes % Eosinophils % Basophils % Nucleated RBC % PT with INR INR PTT (Actin FS) VBG pH POC VBG pCO2 POC VBG pO2 Mixed VBG HCO3 Sodium 140 Potassium 5.0 Chloride 113 H Carbon Dioxide 20 L Anion Gap 7 L BUN 37 H Creatinine 2.5 H Creat Clearance w eGFR 27.47 POC Glucometer [id number] Random Glucose 88 D Lactic Acid Calcium 7.8 L Total Bilirubin 0.1 L AST 7 L ALT 14 Alkaline Phosphatase 101 Troponin I 0.03 D Total Protein 5.5 L Albumin 1.7 L Blood Type Antibody Screen ASSESSMENT/PLAN: 52 yo M PMH of IDDM (poorly controlled), HTN, HLD, CHF, CKD, prior MRSA infection, and perianal abscess last month (admitted here to [facility] for surgical management and IV antibiotics), who presents to the emergency department with, a week and half of perianal pain and bilateral swelling. Sepsis due to Perirectal Cellulitis and Abscesses - Though the preliminary CT report indicates there is no clear abscess, the physical examination is strongly suggestive of abscesses in both gluteal clefts - possibly in the early stages. -Was started on Vancomycin but we will switch to Clindamycin 600 mg IV q 6 hours (to protect his already significantly compromised kidney function), and Zosyn (adjusted for GFR). -Warm compress as well as sitz bath may enhance "maturation" of abscess to permit drainage. -Give IV NS at 100 ml/hour and Probiotics once daily. -Consult ID and surgery. CKD with severe hypoalbuminemia - CKD may be due to diabetic nephropathy, but his very low albumin is unusual for diabetic nephropathy - suggesting that he may have another explanation for nephrosis such as FSGS (focal segmental glomurulosclerosis) associated with obesity. Alternatively, recurrent infections may explain severely depressed albumin. -Consult nephrology and avoid nephrotoxic DM - For at least the next 24 hours, we will hold the home diabetes drugs and implement sliding scale insulin regimen. Anemia - Likely multifactorial. -Do basic anemia work up including serial stool guaiacs, reticulocyte count and iron studies. Morbid Obesity - Will provide patient all the necessary assistance , counseling and positive reinforcement to facilitate weight loss. -Consult environmental remediation engineer. HCM -c/w other home dose meds #FEN -IV NS 100cc/hr -replete lytes as needed -low sodium/fat DM diet #DVTppx SQH 5000U tid #Dispo -admit to meds surg -Full code Visit type - Emergency Visit Emergency Visit: Yes ED Registration Date: 01/09/18 Care time: The patient presented to the Emergency Department on the above date and was hospitalized for further evaluation of their emergent condition. - New Patient This patient is new to me today: Yes Date on this admission: 01/09/18 - Critical Care Critical Care patient: No Hospitalist Screening - Colonoscopy Questionnaire Colonoscopy Questionnaire: Colonoscopy Questionnaire - Patient: 50 - 75 years old and never had a screening colonoscopy: Unknown History of colon or rectal polyps, or CA: Unknown History of IBD, Crohn's disease or UC: Unknown History of abdominal radiation therapy as a child: Unknown - Relative: 1 with colon or rectal CA, or polyps at age 60 or younger: Unknown Colon or rectal CA diagnosed at age 45 or younger: Unknown Multiple relatives with colon or rectal CA: Unknown - Outcome: Screening Result: Negative Screen
[2018-01-09] MEDS ORDERED: SODIUM CHLORIDE 1,000 ML IV SCH (07:45)
[2018-01-09] MEDS ORDERED: ACETAMINOPHEN 325 MG TABLET (FP) PO PRN (09:01)
--- NOTE | 2018-01-09 09:01 | CONSULT ---
- Consultation REQUESTING PROVIDER: CONSULT REQUEST: We have been asked to surgically evaluate this patient for management of an ABSSSI of both buttocks PCP:Martha Alonso HISTORY OF PRESENT ILLNESS: MILY who is a 52 y/o obese male w/poorly controlled IDDM who was here last month w/ aperineal abscess and h/o MRSA; he reports now w / b/l buttock pain when sitting and swelling in the area; he had I and D of the perineal abscess in the OR last month. PMHx: IDDM; HLD PSHx: I and D Home Medications Medication Instructions Recorded Aspirin [ASA -] 81 mg PO DAILY 07/27/14 Furosemide [Lasix -] 40 mg PO DAILY #30 tablet 07/31/16 Acetaminophen [Tylenol .Regular 650 mg PO Q6H PRN #30 tablet 11/30/17 Strength -] Amlodipine Besylate [Norvasc -] 5 mg PO DAILY #30 tablet 11/30/17 Amox-Tr/K Cl [Augmentin 875-125mg 1 tab PO BID@0800,1730 #14 tablet 11/30/17 Tablet -] Atorvastatin Ca [Lipitor] 40 mg PO HS #30 tablet 11/30/17 Insulin Glargine,Hum.rec.anlog 40 unit SQ BID 30 Days vial 11/30/17 [Lantus] Insulin Sliding Scale [Novolog 1 vial SQ TIDAC 30 Days units 11/30/17 Vial Sliding Scale -] Allergies Allergy/AdvReac Type Severity Reaction Status Date / Time No Known Allergies Allergy Verified 01/09/18 01:46 PHYSICAL EXAM: GENERAL: Awake, alert, and fully oriented, in no acute distress. HEAD: Normal with no signs of trauma. EYES: sclera anicteric, conjunctiva clear. NECK: Normal ROM, supple without lymphadenopathy, JVD, or masses. ABDOMEN: Soft, nontender, not distended, normoactive bowel sounds, no guarding, no rebound, no masses. No organomegaly. MUSCULOSKELETAL: Normal ROM at all joints. No bony deformities or tenderness. No CVA tenderness. UPPER EXTREMITIES: 2+ pulses, warm, well-perfused. No cyanosis. Cap refill <2 seconds. No peripheral edema. LOWER EXTREMITIES: 2+ pulses, warm, well-perfused. No calf tenderness. No peripheral edema. NEUROLOGICAL: Normal speech, gait not observed. PSYCH: Cooperative. Good eye contact. Appropriate mood and affect. SKIN: B/L buttock induration w/o clear cut evidence of fluctuance; evidence of previous I and D in the perineum; no evidence of Fourniers Vital Signs Temperature 98.3 F 01/09/18 06:17 Pulse Rate 84 01/09/18 04:22 Respiratory Rate 18 01/09/18 04:22 Blood Pressure 128/55 01/09/18 04:22 O2 Sat by Pulse Oximetry (%) 98 01/09/18 04:22 Lab Results WBC 12.2 K/mm3 (4.0-10.0) H 01/09/18 01:55 RBC 3.83 M/mm3 (4.00-5.60) L 01/09/18 01:55 Hgb 9.9 GM/dL (11.7-16.9) L 01/09/18 01:55 Hct 31.4 % (35.4-49) L 01/09/18 01:55 MCV 82.1 fl (80-96) 01/09/18 01:55 MCHC 31.5 g/dl (32.0-35.9) L 01/09/18 01:55 RDW 15.7 % (11.9-15.9) 01/09/18 01:55 Plt Count 327 K/MM3 (134-434) D 01/09/18 01:55 Sodium 140 mmol/L (136-145) 01/09/18 03:35 Potassium 5.0 mmol/L (3.5-5.1) 01/09/18 03:35 Chloride 113 mmol/L (98-107) H 01/09/18 03:35 Carbon Dioxide 20 mmol/L (21-32) L 01/09/18 03:35 Anion Gap 7 (8-16) L 01/09/18 03:35 BUN 37 mg/dL (7-18) H 01/09/18 03:35 Creatinine 2.5 mg/dL (0.7-1.3) H 01/09/18 03:35 Random Glucose 88 mg/dL (74-106) D 01/09/18 03:35 Calcium 7.8 mg/dL (8.5-10.1) L 01/09/18 03:35 Blood Type Cancelled 01/09/18 02:24 Antibody Screen Cancelled 01/09/18 02:24 INR 1.14 (0.82-1.09) 01/09/18 01:55 CT pelvis reviewed IMP: buttock cellulitis PLAN: Continue IVABS; serial exams; may come to I and D; will f/u. Joshua Kaur MD FACS
--- NOTE | 2018-01-09 09:18 | PN ---
Physical Exam: SUBJECTIVE: Patient is a 52 y/o male with a history of reccurent abscesses, DM, CKD, asthma , HTN, HLD, chronic back pain, and CHF who presents with cellulitis in the gluteal folds. Patient reports he has pain whenever pressure is applied to the area and reports the area is draining. No acute events overnight and denies chest pain, SOB, nausea, vomiting, or diarrhea. OBJECTIVE: Vital Signs Period Temp Pulse Resp BP Sys/Swartz Pulse Ox Last 24 Hr 98.3 F-101.4 F 84-104 18-20 128-134/55-63 97-98 GENERAL: The patient is awake, alert, and fully oriented, in no acute distress. EYES: PERRL, extraocular movements intact LUNGS: Breath sounds equal, clear to auscultation bilaterally HEART: Regular rate and rhythm ABDOMEN: Soft, nontender, nondistended, normoactive bowel sounds EXTREMITIES: 2+ pulses, warm, well-perfused, no edema. SKIN: bilateral swelling lower gluteal clefts, induration bilaterally, non fluctuating, tender to palpation, erythematous, no perianal abscess noted Laboratory Results - last 24 hr 01/09/18 01/09/18 01/09/18 01:55 01:55 01:55 WBC 12.2 H RBC 3.83 L Hgb 9.9 L Hct 31.4 L MCV 82.1 MCH 25.9 MCHC 31.5 L RDW 15.7 Plt Count 327 D MPV 8.2 Absolute Neuts (auto) 9.6 Neutrophils % 78.4 D Lymphocytes % 12.3 D Monocytes % 6.1 Eosinophils % 2.0 Basophils % 1.2 Nucleated RBC % 0 PT with INR 12.90 INR 1.14 PTT (Actin FS) 36.3 VBG pH 7.33 POC VBG pCO2 39.7 POC VBG pO2 29.0 Mixed VBG HCO3 20.3 Sodium Potassium Chloride Carbon Dioxide Anion Gap BUN Creatinine Creat Clearance w eGFR POC Glucometer Random Glucose Lactic Acid Calcium Total Bilirubin AST ALT Alkaline Phosphatase Troponin I Total Protein Albumin Blood Type Antibody Screen 01/09/18 01/09/18 01/09/18 01:55 01:55 02:24 WBC RBC Hgb Hct MCV MCH MCHC RDW Plt Count MPV Absolute Neuts (auto) Neutrophils % Lymphocytes % Monocytes % Eosinophils % Basophils % Nucleated RBC % PT with INR INR PTT (Actin FS) VBG pH POC VBG pCO2 POC VBG pO2 Mixed VBG HCO3 Sodium Cancelled Potassium Cancelled Chloride Cancelled Carbon Dioxide Cancelled Anion Gap Cancelled BUN Cancelled Creatinine Cancelled Creat Clearance w eGFR Cancelled POC Glucometer Random Glucose Cancelled Lactic Acid 1.0 Calcium Cancelled Total Bilirubin Cancelled AST Cancelled ALT Cancelled Alkaline Phosphatase Cancelled Troponin I Total Protein Cancelled Albumin Cancelled Blood Type Cancelled Antibody Screen Cancelled 01/09/18 01/09/18 03:35 04:45 WBC RBC Hgb Hct MCV MCH MCHC RDW Plt Count MPV Absolute Neuts (auto) Neutrophils % Lymphocytes % Monocytes % Eosinophils % Basophils % Nucleated RBC % PT with INR INR PTT (Actin FS) VBG pH POC VBG pCO2 POC VBG pO2 Mixed VBG HCO3 Sodium 140 Potassium 5.0 Chloride 113 H Carbon Dioxide 20 L Anion Gap 7 L BUN 37 H Creatinine 2.5 H Creat Clearance w eGFR 27.47 POC Glucometer [id number] Random Glucose 88 D Lactic Acid Calcium 7.8 L Total Bilirubin 0.1 L AST 7 L ALT 14 Alkaline Phosphatase 101 Troponin I 0.03 D Total Protein 5.5 L Albumin 1.7 L Blood Type Antibody Screen Active Medications Generic Name Dose Route Start Last Admin Trade Name Freq PRN Reason Stop Dose Admin Acetaminophen 650 mg 01/09/18 09:01 Tylenol - PO Q6H PRN Fever Or Pain Amlodipine Besylate 5 mg 01/09/18 10:00 Norvasc - PO DAILY [facility] Aspirin 81 mg 01/09/18 10:00 Asa - PO DAILY [facility] Atorvastatin Calcium 40 mg 01/09/18 22:00 Lipitor - PO HS MARY Furosemide 40 mg 01/09/18 10:00 Lasix - PO DAILY [facility] Heparin Sodium (Porcine) 5,000 unit 01/09/18 07:15 Heparin - SQ TID MARY Clindamycin Phosphate 600 mg in 50 mls @ 100 mls/hr 01/09/18 09:00 Cleocin 600 Mg Premix Ivpb - IVPB Q6H-IV MARY Protocol Piperacillin Sod/Tazobactam 50 mls @ 100 mls/hr 01/10/18 10:00 Sod 3.375 gm/ Dextrose IVPB Q8H-IV MARY Protocol Piperacillin Sod/Tazobactam 50 mls @ 100 mls/hr 01/09/18 10:00 Sod 3.375 gm/ Dextrose IVPB 01/10/18 09:59 Q8H-IV MARY Sodium Chloride 1,000 mls @ 100 mls/hr 01/09/18 07:45 Normal Saline - IV ASDIR MARY Insulin Aspart 1 vial 01/09/18 11:00 Novolog Vial Sliding Scale - SQ ACHS MARY Protocol Insulin Detemir 80 units 01/09/18 22:00 Levemir Vial SQ HS MARY Lactobacillus Acidophilus 1 tab 01/09/18 10:00 Bacid - PO DAILY [facility] ASSESSMENT/PLAN: Patient is a 52 y/o male with a history of reccurent abscesses, DM, CKD, asthma , HTN, NLF, chronic back pain, and CHF who presents with pain in the lower buttock. #B/L glueteal cleft cellutlitis, possible abscess - ED: Vanc and Zosyn - Cefepime and Cindamycin 600mg (day 1) - WBC: 12.2 - ID consult, Dr. Diaz - per surgery Dr. Kaur- continue IVAB, possible I&D later - CT not indicative of abscess - tylenol 650, tramadol 50 g pain control - f/u CX of wounds, and ucx - continue probiotics - long history of noncompliance and infections, most recent November 30 perianal abscess #CKD - BUN 37, Cr 2.5, BUN baseline 50, Cr baseline 3 - f/u Dr. Hanley #CHF - continue furosemide 40 mg - atorvastain 40 mg #DM - continue levemir 80 units #HTN - continue amlodipine 5mg #DVT ppx - heparin TID PCP: Dr. Fry, Nephro: Shantal Visit type - Emergency Visit Emergency Visit: Yes ED Registration Date: 01/09/18 Care time: The patient presented to the Emergency Department on the above date and was hospitalized for further evaluation of their emergent condition. - New Patient This patient is new to me today: Yes Date on this admission: 01/09/18 - Critical Care Critical Care patient: No
[2018-01-09] MEDS: HEPARIN NA (PORCINE) 5,000 UNITS/ML 1ML VIAL SQ SCH ×3 (09:26→21:40)
[2018-01-09] MEDS ORDERED: ACETAMINOPHEN 325 MG TABLET (FP) ONE (09:30)
[2018-01-09] MEDS: CLINDAMYCIN 600MG PREMIX IVPB 600 MG/50 ML BAG IVPB SCH ×3 (09:56→21:01)
[2018-01-09] MEDS: amLODIPine BESYLATE 5 MG TABLET (FP) PO SCH (09:57)
[2018-01-09] MEDS: ASPIRIN 81 MG CHEWABLE TABLETS PO SCH (09:57)
[2018-01-09] MEDS: FUROSEMIDE 40 MG TABLET (FP) PO SCH (09:57)
[2018-01-09] MEDS ORDERED: PIPERACILLIN/TAZOB 3.375 GM 3.375 GM in DEXTROSE 5%-WATER - 50 ML IVPB SCH (10:00)
[2018-01-09] MEDS: LACTOBACILLUS ACIDOPHILUS 1 TABLET PO SCH (10:41)
--- NOTE | 2018-01-09 10:49 | CON.NEP ---
Consult Consult Specialty:: Nephrology Reason for Consultation:: patient with CKD stage 4 - History of Present Illness Chief Complaint: abcess and pain in buttock region. History of Present Illness: Mr Dennis is a 52 y/o male who presenetd to [facility] ER with about a week and a half pain and abscess formation in the buttock region. Patient has a history of perianal abbesses in the past, his last one being one month ago which required an I and D. He says for about the last week he has had increasing pain (around 8 /10 at its worst) and felt the formation of an abscess. he aslo states that last night before coming into the hospital he felt very warm and took his temperature, with it being 99.4 however on arrival to the ER his temperature was 101.4 Other notable labs in the ER: WBC 12.2, BUN/Cr: 37/2.5, Albumin 1.7. He has baseline Cr of 1.8 and nephrotic range protein in the urine. - History Source History Provided By: Patient - Past Medical History Cardio/Vascular: Yes: HTN, Hyperlipdemia Pulmonary: Yes: Asthma, Other (chronic cough (nonproductive) x1 year) Gastrointestinal: Yes: Other (obesity) Renal/: Yes: Renal Inusuff (CKD stage 4 baseline Creatinine 1.8), Other ( urinary obstruction) Infectious Disease: Yes: MRSA (right buttock abscess several years ago), Other ( osteomyelitis) Endocrine: Yes: Diabetes Mellitus, Other (DM with neuropathy) - Alcohol/Substance Use Hx Alcohol Use: No History of Substance Use: reports: None - Smoking History Smoking history: Never smoked Have you smoked in the past 12 months: No Aproximately how many cigarettes per day: 0 - Social History Usual Living Arrangement: With Child ADL: 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 History of Recent Travel: No Home Medications - Allergies Allergies/Adverse Reactions: Allergies Allergy/AdvReac Type Severity Reaction Status Date / Time No Known Allergies Allergy Verified 01/09/18 01:46 - Home Medications Home Medications: Ambulatory Orders Aspirin [ASA -] 81 mg PO DAILY 07/27/14 Furosemide [Lasix -] 40 mg PO DAILY #30 tablet 07/31/16 Acetaminophen [Tylenol .Regular Strength -] 650 mg PO Q6H PRN #30 tablet Amlodipine Besylate [Norvasc -] 5 mg PO DAILY #30 tablet 11/30/17 Amox-Tr/K Cl [Augmentin 875-125mg Tablet -] 1 tab PO BID@0800,1730 #14 tablet Atorvastatin Ca [Lipitor] 40 mg PO HS #30 tablet 11/30/17 Insulin Glargine,Hum.rec.anlog [Lantus] 40 unit SQ BID 30 Days vial 11/30/17 Insulin Sliding Scale [Novolog Vial Sliding Scale -] 1 vial SQ TIDAC 30 Days units 11/30/17 Family Disease History - Family Disease History Family Disease History: Diabetes: Father ( 50s cycling accident), Other: Mother (alive HTN), Sister (healthy and living) Review of Systems - Review of Systems Constitutional: reports: No Symptoms Cardiovascular: denies: Chest Pain, Palpitations Respiratory: denies: SOB Gastrointestinal: denies: Abdominal Pain Integumentary: reports: Other (gluteal pain with possile early abscess formation) Nephrology Consult - Height Height: 1.8 m - Weight Weight: 149.685 kg - BMI Body Mass Index (BMI): 46.0 - Lab Results CBC,BMP: CBC, BMP 01/09/18 01:55 01/09/18 03:35 Anion Gap: Anion Gap Anion Gap 7 (8-16) L 01/09/18 03:35 - Physical Examination Vital Signs: Vital Signs Temperature 98.5 F 01/09/18 09:55 Pulse Rate 85 01/09/18 09:55 Respiratory Rate 18 01/09/18 09:55 Blood Pressure 133/58 01/09/18 09:55 O2 Sat by Pulse Oximetry (%) 96 01/09/18 09:55 Constitutional: Yes: No Distress Cardiovascular: Yes: Regular Rate and Rhythm, S1, S2 Respiratory: Yes: CTA Bilaterally Gastrointestinal: Yes: Soft. No: Distention, Tenderness Edema: No (no LE edema ) Neurological: Yes: Alert Psychiatric: Yes: Alert Problem List - Problems (1) CKD (chronic kidney disease) Code(s): N18.9 - CHRONIC KIDNEY DISEASE, UNSPECIFIED Qualifiers: Chronic kidney disease stage: unspecified stage Qualified Code(s): N18.9 - Chronic kidney disease, unspecified (2) Perineal abscess Code(s): L02.215 - CUTANEOUS ABSCESS OF PERINEUM (3) Anemia in chronic kidney disease Code(s): N18.9 - CHRONIC KIDNEY DISEASE, UNSPECIFIED; D63.1 - ANEMIA IN CHRONIC KIDNEY DISEASE Assessment/Plan patient known to have history of hyperkalemia -repeat CMP in the am in K is high give kayexalate -low K diet
[2018-01-09 11:02] LABS: BASO % 0.3 % (0-2.0); EOS % 1.3 % (0-4.5); HEMATOCRIT 30.2 % (35.4-49); HEMOGLOBIN 9.3 GM/dL (11.7-16.9); LYMPH % 10.3 % (8-40); MCH 25.6 pg (25.7-33.7); MEAN CELL VOLUME 82.7 fl (80-96); MEAN PLT VOLUME 7.9 fl (7.5-11.1); MONO % 9.2 % (3.8-10.2); NEUT % 78.9 % (42.8-82.8); PLATELET COUNT 344 K/MM3 (134-434); RBC 3.65 M/mm3 (4.00-5.60); RDW 15.8 % (11.9-15.9); WHITE BLOOD COUNT 13.7 K/mm3 (4.0-10.0)
[2018-01-09 11:17] LABS: INR 1.25 (0.82-1.09); PROTHROMBIN TIME (PATIENT) 14.1 SEC (9.7-13.0)
--- NOTE | 2018-01-09 11:25 | EKG ---
Test Reason : Blood Pressure : / mmHG Vent. Rate : 101 BPM Atrial Rate : 101 BPM P-R Int : 168 ms QRS Dur : 102 ms QT Int : 358 ms P-R-T Axes : 028 -22 086 degrees QTc Int : 464 ms SINUS TACHYCARDIA INCOMPLETE RIGHT BUNDLE BRANCH BLOCK BORDERLINE ECG WHEN COMPARED WITH ECG OF 29-NOV-2017 03:43, VENT. RATE HAS INCREASED BY 35 BPM Confirmed by CHRISTIAN HUGHES MD ([id number]) on 01/09/2018 11:25:02 AM Referred By: Confirmed By:CHRISTIAN HUGHES MD
--- NOTE | 2018-01-09 11:31 | PN ---
Progress Note (short form) - Note Progress Note: ID consult dictated imp/reccd 52 year old diabetic man with recent perineal abscess-group b strep now admitted with bilateral buttock abscesses reports they have been present about 10 days fevers/chills last 24-48 hours reports left sided absecess has drained a bit and is a bit smaller on exam has kissing buttock abscesses with purulent drainage will need drainage cultures of drainage sent clindamycin/cefepime probiotics received vancomycin, levaquin and zosyn in ED vanco trough in am buttock abscesses diabetes obesity ckd Problem List - Problems (1) Abscess of buttock Code(s): L02.31 - CUTANEOUS ABSCESS OF BUTTOCK (2) Diabetes mellitus type 2, uncontrolled Code(s): E11.65 - TYPE 2 DIABETES MELLITUS WITH HYPERGLYCEMIA (3) Morbid obesity Code(s): E66.01 - MORBID (SEVERE) OBESITY DUE TO EXCESS CALORIES
[2018-01-09] MEDS ORDERED: CEFEPIME HCL/D5W 2 GM/50 ML BAG IVPB SCH (11:45)
[2018-01-09 11:47] LABS: ALBUMIN 1.7 g/dl (3.4-5.0); ANION GAP 5 (8-16); BILIRUBIN,TOTAL 0.2 mg/dL (0.2-1.0); BLOOD UREA NITROGEN 39 mg/dL (7-18); CHLORIDE 110 mmol/L (98-107); CO2 24 mmol/L (21-32); CREATININE 2.5 mg/dL (0.7-1.3); GLUCOSE,RANDOM 123 mg/dL (74-106); MAGNESIUM 1.7 mg/dL (1.8-2.4); PHOSPHOROUS 3.6 mg/dL (2.5-4.9); POTASSIUM 5.7 mmol/L (3.5-5.1); SGOT/AST 9 U/L (15-37); SGPT/ALT 12 U/L (12-78); SODIUM 139 mmol/L (136-145); TOT PROT 5.6 g/dl (6.4-8.2)
[2018-01-09 11:48] LABS: ALK PHOS 101 U/L (45-117)
[2018-01-09 12:10] LABS: URINE APPEARANCE CLOUDY; URINE BILIRUBIN NEGATIVE (<2.0 mg/dL); URINE COLOR YELLOW; URINE GLUCOSE (UA) 3+ (NEGATIVE); URINE KETONE NEGATIVE (NEGATIVE); URINE LEUK ESTERASE NEGATIVE (NEGATIVE); URINE NITRITE NEGATIVE (NEGATIVE); URINE UROBILINOGEN NEGATIVE mg/dL (0.2-1.0)
[2018-01-09 12:29] LABS: URINE PROTEIN 3+ (NEGATIVE)
[2018-01-09 12:37] LABS: EPI CELLS FEW /HPF (FEW); URINE HYALINE CAST 47 /lpf; URINE MUCUS RARE
[2018-01-09] MEDS: INSULIN SLIDING SCALE (NOVOLOG) 1 VIAL SQ SCH ×3 (12:57→21:42)
[2018-01-09] MEDS ORDERED: CEFEPIME 2 GM/100 ML BAG IVPB ONE (13:11)
--- NOTE | 2018-01-09 14:32 | CONS ---
DATE OF CONSULTATION: 01/09/2018 HISTORY OF PRESENT ILLNESS: This is a 52-year-old man with a history of morbid obesity and diabetes for at least 16 years. He has some peripheral neuropathy. He has had laser treatment to his eyes. He has had CKD. He is followed by Dr. Corby Huerta. He has a remote history of MRSA back in 2014 after that he has had MRSA screens that are negative. He most recently was hospitalized in 2018 in November when he had a perineal abscess that grew group B strep. He had the abscessed drained. He was discharged on Augmentin. He did very well. He saw the surgeon in followup with good results. He now comes to the hospital with complaints of 10 days of what he notes is bile duct discomfort. He had developed bilateral abscess and indurated painful areas on his buttocks. He noted some drainage from the left, which he says has gotten smaller in size. For the last 24 to 48 hours he has had some chills and he had a low grade fever at home. He came to the emergency room where he was noted to have a temperature of 101. He denies any nausea or vomiting. He denies any difficulty urinating. He has no abdominal pain or chest pain. PAST MEDICAL HISTORY: Is notable for diabetes for at least 16 years. He has a history of eye disease and neuropathy and he has had laser therapy. He has a history of morbid obesity, asthma, hypertension, hyperlipidemia, chronic kidney disease , and CHF. He has had a diabetic foot infection in the past. PAST SURGICAL HISTORY: Notable for knee surgery and recent drainage of the perineal abscess. ALLERGIES: No known drug allergies. MEDICATIONS: His medications at home include insulin, furosemide, Lipitor, and aspirin; he completed a 1-week course of Augmentin in November, Norvasc and acetaminophen. FAMILY HISTORY: Noncontributory. SOCIAL HISTORY: He lives with his mother and son. 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 He denies any cigarette or substance use. REVIEW OF SYSTEMS: He denies chest pain, abdominal pain, nausea, vomiting, diarrhea or dysuria. PHYSICAL EXAMINATION: General: He is an obese man in no acute distress. Vital Signs: He weighs 149 kg, his oxygen saturation is 96% on room air, his respiratory rate is 18, blood pressure 132/58, heart rate is 85, current temperature is 98.5, and T-Max was 101.4. HEENT: He is normocephalic. His eyes are anicteric. Neck: Supple. Lungs: Clear to auscultation. Heart: Regular rate and rhythm. Abdomen: Obese. I cannot palpate any of his liver or spleen. He has no tenderness. He has no inguinal adenopathy. BUTTOCKS: He has 2 kissing abscesses on his buttocks that with pressure you can express some purulent drainage. Extremities: Without edema. LABORATORY DATA: Notable for a white count of 13.7, hemoglobin 9.3, and platelets 344. BUN and creatinine are 39 and 2.5 and his magnesium is 1.7. Cultures are pending. CT scan of the pelvis has been done and is pending as well. In summary, this is a morbidly obese diabetic 52-year-old man with current abscesses. These were perineal now bilateral buttocks. The drainage was expressed and was sent for culture. He has been seen by Surgery and we will discuss with Dr. Kaur. I suspect he is going to need drainage. He received 2 g of vancomycin, Levaquin and Zosyn in the ER. We will treat him with clindamycin and cefepime for now and obtain a random vancomycin level in the morning given his EKG. Further recommendations to follow. BINDU LINDSEY M.D. [id number] MTDD
[2018-01-09] MEDS: traMADol HCL 50 MG TABLET PO PRN ×2 (14:50→21:41)
[2018-01-09] MEDS ORDERED: ONDANSETRON 4 MG/2 ML VIAL ONE (15:10)
[2018-01-09] MEDS ORDERED: FAMOTIDINE 20 MG/50 ML IVPB 20 MG/50 ML MG IVPB ONE (15:10)
[2018-01-09] MEDS ORDERED: LORazepam 2 MG/ML SDV VIAL ONE (15:11)
[2018-01-09] MEDS ORDERED: cloNIDine HCL 0.1 MG TABLET ONE (15:51)
--- NOTE | 2018-01-09 16:49 | PN ---
Teaching Attending Note Name of Resident: Vijaya Louis (Nephrology) ATTENDING PHYSICIAN STATEMENT I saw and evaluated the patient. I reviewed the resident's note and discussed the case with the resident. I agree with the resident's findings and plan as documented. Nephrology Pt is a 52 year old male with pmhx of perianalla abscess, CKD, DM, MRSA, and morbid obesity who presents to the ER with perianal pain. He was found to have another abscess. I was called to evaluate him for ckd as he has elevated creatinine. He follows with Dr Castle. He denies shortness of breath but does complain of lower ext edema. pmhx ckd dm obesity mrsa family hx dm ros perinal pain social hx denies Current Medications Generic Name Dose Route Start Last Admin Trade Name Freq PRN Reason Stop Dose Admin Acetaminophen 650 mg 01/09/18 09:01 01/09/18 09:56 Tylenol - PO 650 mg Q6H PRN Administration Fever Or Pain Amlodipine Besylate 5 mg 01/09/18 10:00 01/09/18 09:57 Norvasc - PO 5 mg DAILY MARY Administration Aspirin 81 mg 01/09/18 10:00 01/09/18 09:57 Asa - PO 81 mg DAILY MARY Administration Atorvastatin Calcium 40 mg 01/09/18 22:00 Lipitor - PO HS MARY Furosemide 40 mg 01/09/18 10:00 01/09/18 09:57 Lasix - PO 40 mg DAILY MARY Administration Heparin Sodium (Porcine) 5,000 unit 01/09/18 07:15 01/09/18 13:07 Heparin - SQ 5,000 unit TID MARY Administration Clindamycin Phosphate 600 mg in 50 mls @ 100 mls/hr 01/09/18 09:00 01/09/18 14:52 Cleocin 600 Mg Premix Ivpb - IVPB 100 mls/hr Q6H-IV MARY Administration Protocol Sodium Chloride 1,000 mls @ 100 mls/hr 01/09/18 07:45 01/09/18 09:26 Normal Saline - IV 100 mls/hr ASDIR MARY Administration Cefepime HCl 2 gm in 50 mls @ 100 mls/hr 01/09/18 11:45 01/09/18 13:14 Maxipime 2gm Ivpb (Premix) IVPB 100 mls/hr BID MARY Administration Protocol Insulin Aspart 1 vial 01/09/18 11:00 01/09/18 12:57 Novolog Vial Sliding Scale - SQ Not Given [facility] Protocol Insulin Detemir 80 units 01/09/18 22:00 Levemir Vial SQ [facility] Lactobacillus Acidophilus 1 tab 01/09/18 10:00 01/09/18 10:41 Bacid - PO 1 tab DAILY MARY Administration Tramadol HCl 50 mg 01/09/18 13:16 01/09/18 14:50 Ultram - PO 50 mg Q6H PRN Administration PAIN LEVEL 6-10 Last Vital Signs Temp Pulse Resp BP Pulse Ox 98.2 F 92 H 23 137/74 96 01/09/18 14:57 01/09/18 14:57 01/09/18 14:57 01/09/18 14:57 01/09/18 09:55 Laboratory Tests 11/29/17 11/30/17 01/09/18 06:15 06:15 01:55 Hgb 9.9 L Sodium Potassium Creatinine 3.1 H 3.3 H Urine Protein Urine Blood 01/09/18 01/09/18 01/09/18 03:35 10:45 10:45 Hgb 9.3 L Sodium 140 139 Potassium 5.0 5.7 H Creatinine 2.5 H 2.5 H Urine Protein Urine Blood 01/09/18 12:02 Hgb Sodium Potassium Creatinine Urine Protein 3+ H Urine Blood 1+ H cardio s1s2 pulm clear GI obese ext plus 2 edema neuro awake and alert Impression 1. CKD 2. CHF 3. hx of DFU 4. hx of osteomyelitis 5. hx hyperkalemia 6. DM 7. HTN 8. obesity 9. anemia 10. hx of urinary obstruction/high post void residual 11. nephrotic range proteinuria 12. perineal abscess Plan - d/c fluids - with give another dose of lasix - recheck potassium level - lasix should help bring potassium down - ID and surgery eval - creatinine is better than baseline - pt appears overloaded Dr Tong
[2018-01-09] MEDS ORDERED: FUROSEMIDE 40 MG/4 ML INJECTABLE VIAL IVPUSH ONE (16:50)
--- NOTE | 2018-01-09 19:12 | PN ---
Teaching Attending Note Name of Resident: Niya Atkinson ATTENDING PHYSICIAN STATEMENT I saw and evaluated the patient. I reviewed the resident's note and discussed the case with the resident. I agree with the resident's findings and plan as documented. SUBJECTIVE: Patient is c/o having gluteal pain. OBJECTIVE: Vital Signs Temperature 99.8 F H 01/09/18 16:30 Pulse Rate 84 01/09/18 16:30 Respiratory Rate 20 01/09/18 16:30 Blood Pressure 117/65 01/09/18 16:30 O2 Sat by Pulse Oximetry (%) 96 01/09/18 09:55 CBCD WBC 13.7 K/mm3 (4.0-10.0) H 01/09/18 10:45 RBC 3.65 M/mm3 (4.00-5.60) L 01/09/18 10:45 Hgb 9.3 GM/dL (11.7-16.9) L 01/09/18 10:45 Hct 30.2 % (35.4-49) L 01/09/18 10:45 MCV 82.7 fl (80-96) 01/09/18 10:45 MCHC 31.0 g/dl (32.0-35.9) L 01/09/18 10:45 RDW 15.8 % (11.9-15.9) 01/09/18 10:45 Plt Count 344 K/MM3 (134-434) 01/09/18 10:45 MPV 7.9 fl (7.5-11.1) 01/09/18 10:45 CMP Sodium 139 mmol/L (136-145) 01/09/18 10:45 Potassium 5.7 mmol/L (3.5-5.1) H 01/09/18 10:45 Chloride 110 mmol/L (98-107) H 01/09/18 10:45 Carbon Dioxide 24 mmol/L (21-32) 01/09/18 10:45 Anion Gap 5 (8-16) L 01/09/18 10:45 BUN 39 mg/dL (7-18) H 01/09/18 10:45 Creatinine 2.5 mg/dL (0.7-1.3) H 01/09/18 10:45 Creat Clearance w eGFR 27.47 (>60) 01/09/18 10:45 Random Glucose 123 mg/dL (74-106) H D 01/09/18 10:45 Calcium 8.0 mg/dL (8.5-10.1) L 01/09/18 10:45 Total Bilirubin 0.2 mg/dL (0.2-1.0) 01/09/18 10:45 AST 9 U/L (15-37) L D 01/09/18 10:45 ALT 12 U/L (12-78) 01/09/18 10:45 Alkaline Phosphatase 101 U/L (45-117) 01/09/18 10:45 Total Protein 5.6 g/dl (6.4-8.2) L 01/09/18 10:45 Albumin 1.7 g/dl (3.4-5.0) L 01/09/18 10:45 CARDIAC ENZYMES Troponin I 0.03 ng/ml (0.00-0.05) D 01/09/18 03:35 Current Medications Generic Name Dose Route Start Last Admin Trade Name Freq PRN Reason Stop Dose Admin Acetaminophen 650 mg 01/09/18 09:01 01/09/18 09:56 Tylenol - PO 650 mg Q6H PRN Administration Fever Or Pain Amlodipine Besylate 5 mg 01/09/18 10:00 01/09/18 09:57 Norvasc - PO 5 mg DAILY MARY Administration Aspirin 81 mg 01/09/18 10:00 01/09/18 09:57 Asa - PO 81 mg DAILY MARY Administration Atorvastatin Calcium 40 mg 01/09/18 22:00 Lipitor - PO HS MARY Furosemide 40 mg 01/09/18 10:00 01/09/18 09:57 Lasix - PO 40 mg DAILY MARY Administration Heparin Sodium (Porcine) 5,000 unit 01/09/18 07:15 01/09/18 13:07 Heparin - SQ 5,000 unit TID MARY Administration Clindamycin Phosphate 600 mg in 50 mls @ 100 mls/hr 01/09/18 09:00 01/09/18 14:52 Cleocin 600 Mg Premix Ivpb - IVPB 100 mls/hr Q6H-IV MARY Administration Protocol Cefepime HCl 2 gm in 50 mls @ 100 mls/hr 01/09/18 11:45 01/09/18 13:14 Maxipime 2gm Ivpb (Premix) IVPB 100 mls/hr BID MARY Administration Protocol Insulin Aspart 1 vial 01/09/18 11:00 01/09/18 16:53 Novolog Vial Sliding Scale - SQ Not Given ACHS [facility] Protocol Insulin Detemir 80 units 01/09/18 22:00 Levemir Vial SQ HS [facility] Lactobacillus Acidophilus 1 tab 01/09/18 10:00 01/09/18 10:41 Bacid - PO 1 tab DAILY MARY Administration Tramadol HCl 50 mg 01/09/18 13:16 01/09/18 14:50 Ultram - PO 50 mg Q6H PRN Administration PAIN LEVEL 6-10 Home Medications Medication Instructions Recorded Acetaminophen [Tylenol .Regular 650 mg PO Q6H PRN #30 tablet 11/30/17 Strength -] Amlodipine Besylate [Norvasc -] 5 mg PO DAILY #30 tablet 11/30/17 Amox-Tr/K Cl [Augmentin 875-125mg 1 tab PO BID@0800,1730 #14 tablet 11/30/17 Tablet -] Atorvastatin Ca [Lipitor] 40 mg PO HS #30 tablet 11/30/17 Insulin Glargine,Hum.rec.anlog 40 unit SQ BID 30 Days vial 11/30/17 [Lantus] Insulin Sliding Scale [Novolog 1 vial SQ TIDAC 30 Days units 11/30/17 Vial Sliding Scale -] Furosemide [Lasix -] 40 mg PO DAILY 01/09/18 PE: per resident's note Gluteal area: positive for drainage ASSESSMENT AND PLAN: Patient is a 52 y/o male with a history of reccurent abscesses, DM, CKD, asthma , HTN, HLD, chronic back pain, and CHF who presents with cellulitis of the gluteal folds with drainage. # Perineal abscess: On IV antibiotic continue Cefepime and Clindamycin ,ID and surgery on the case .Follow cx. Tramadol for pain # DM on Levemir and SS with coverage # Hx of CHF on Lasix continue # CKD (chronic kidney disease), nephro on the case # Anemia in chronic kidney disease most likely due to nephro dz DVT px: Heparin sq
[2018-01-09] MEDS: ATORVASTATIN CA 40 MG TABLET (FP) PO SCH (21:40)
[2018-01-09] MEDS ORDERED: INSULIN (LEVEMIR) 100 UNITS/ML UNITS SQ SCH (22:00)
[2018-01-09] MEDS: CEFEPIME 2 GM in DEXTROSE 5%-WATER - 100 ML IVPB SCH (23:18)
[2018-01-10] MEDS: CLINDAMYCIN 600MG PREMIX IVPB 600 MG/50 ML BAG IVPB SCH ×4 (02:40→21:31)
[2018-01-10] MEDS: HEPARIN NA (PORCINE) 5,000 UNITS/ML 1ML VIAL SQ SCH ×3 (06:21→21:34)
[2018-01-10] MEDS: INSULIN SLIDING SCALE (NOVOLOG) 1 VIAL SQ SCH ×4 (06:21→21:37)
[2018-01-10] MEDS: traMADol HCL 50 MG TABLET PO PRN (06:24)
[2018-01-10 07:50] LABS: HEMATOCRIT 31.4 % (35.4-49); HEMOGLOBIN 9.8 GM/dL (11.7-16.9); MCH 26.3 pg (25.7-33.7); MCHC 31.3 g/dl (32.0-35.9); MEAN CELL VOLUME 84.1 fl (80-96); PLATELET COUNT 325 K/MM3 (134-434); RBC 3.74 M/mm3 (4.00-5.60); RDW 15.8 % (11.9-15.9); WHITE BLOOD COUNT 14.8 K/mm3 (4.0-10.0)
[2018-01-10 08:09] LABS: SERUM IRON SATURATION 7 % (15-55); TOTAL IRON BINDING CAPACITY 175 ug/dL (250-450); UIBC 163 ug/dL (111-343)
[2018-01-10 08:13] LABS: ALBUMIN 1.7 g/dl (3.4-5.0); ANION GAP 12 (8-16); BLOOD UREA NITROGEN 43 mg/dL (7-18); CHLORIDE 112 mmol/L (98-107); CO2 17 mmol/L (21-32); GLUCOSE,RANDOM 56 mg/dL (74-106); POTASSIUM 5.2 mmol/L (3.5-5.1); SGOT/AST 9 U/L (15-37); SGPT/ALT 13 U/L (12-78); SODIUM 141 mmol/L (136-145)
[2018-01-10 08:16] LABS: ALK PHOS 102 U/L (45-117); BILIRUBIN,TOTAL 0.2 mg/dL (0.2-1.0); TOT PROT 5.9 g/dl (6.4-8.2)
--- NOTE | 2018-01-10 09:10 | PN ---
Progress Note, Physician History of Present Illness: patient states he is feeling. he is still in pain with the abscess but feels its a little bit better than when he first came to the hospital. His sugars were low during the night and he felt very clammy. he denies any CP/SOB/N/V and does not have any trouble urinating. he wants something a little stronger for the pain if possible. patient getting I and D tomorrow. - Current Medication List Current Medications: Active Medications Acetaminophen (Tylenol -) 650 mg PO Q6H PRN PRN Reason: Fever Or Pain Last Admin: 01/09/18 09:56 Dose: 650 mg Amlodipine Besylate (Norvasc -) 5 mg PO DAILY [facility] Last Admin: 01/09/18 09:57 Dose: 5 mg Aspirin (Asa -) 81 mg PO DAILY [facility] Last Admin: 01/09/18 09:57 Dose: 81 mg Atorvastatin Calcium (Lipitor -) 40 mg PO HS [facility] Last Admin: 01/09/18 21:40 Dose: 40 mg Furosemide (Lasix -) 40 mg PO DAILY [facility] Last Admin: 01/09/18 09:57 Dose: 40 mg Heparin Sodium (Porcine) (Heparin -) 5,000 unit SQ TID [facility] Last Admin: 01/10/18 06:21 Dose: 5,000 unit Clindamycin Phosphate (Cleocin 600 Mg Premix Ivpb -) 600 mg in 50 mls @ 100 mls /hr IVPB Q6H-IV MARY; Protocol Last Admin: 01/10/18 02:40 Dose: 100 mls/hr Cefepime HCl 2 gm/ Dextrose 100 mls @ 200 mls/hr IVPB BID MARY; Protocol Last Admin: 01/09/18 23:18 Dose: 200 mls/hr Insulin Aspart (Novolog Vial Sliding Scale -) 1 vial SQ ACHS [facility]; Protocol Last Admin: 01/10/18 06:21 Dose: Not Given Insulin Detemir (Levemir Vial) 80 units SQ HS [facility] Last Admin: 01/09/18 21:41 Dose: 80 units Lactobacillus Acidophilus (Bacid -) 1 tab PO DAILY MARY Last Admin: 01/09/18 10:41 Dose: 1 tab Oxycodone HCl (Roxicodone -) 5 mg PO Q6H PRN PRN Reason: PAIN LEVEL 6-10 - Objective Vital Signs: Vital Signs Temperature 98.9 F 01/10/18 06:00 Pulse Rate 77 01/10/18 06:00 Respiratory Rate 20 01/10/18 06:00 Blood Pressure 125/57 01/10/18 06:00 O2 Sat by Pulse Oximetry (%) 96 01/09/18 21:00 Constitutional: Yes: No Distress Cardiovascular: Yes: Regular Rate and Rhythm, S2 Respiratory: Yes: CTA Bilaterally Gastrointestinal: Yes: Normal Bowel Sounds, Soft. No: Tenderness Edema: No (no LE edema) Labs: CBC, BMP 01/10/18 06:15 01/10/18 06:15 INR, PTT INR 1.25 (0.82-1.09) H 01/09/18 10:45 Problem List - Problems (1) CKD (chronic kidney disease) Code(s): N18.9 - CHRONIC KIDNEY DISEASE, UNSPECIFIED Qualifiers: Chronic kidney disease stage: unspecified stage Qualified Code(s): N18.9 - Chronic kidney disease, unspecified (2) Perineal abscess Code(s): L02.215 - CUTANEOUS ABSCESS OF PERINEUM (3) Anemia in chronic kidney disease Code(s): N18.9 - CHRONIC KIDNEY DISEASE, UNSPECIFIED; D63.1 - ANEMIA IN CHRONIC KIDNEY DISEASE Assessment/Plan -repeat labs in AM -continue to monitor CMP -monitor fluid status
[2018-01-10] MEDS ORDERED: PT OWN MED DRAWER 7, Y5N ONE (09:25)
[2018-01-10] MEDS: ASPIRIN 81 MG CHEWABLE TABLETS PO SCH (09:36)
[2018-01-10] MEDS: LACTOBACILLUS ACIDOPHILUS 1 TABLET PO SCH (09:37)
[2018-01-10] MEDS: FUROSEMIDE 40 MG TABLET (FP) PO SCH (09:37)
[2018-01-10] MEDS: amLODIPine BESYLATE 5 MG TABLET (FP) PO SCH (09:37)
[2018-01-10] MEDS: CEFEPIME 2 GM in DEXTROSE 5%-WATER - 100 ML IVPB SCH ×2 (09:43→22:38)
[2018-01-10] MEDS ORDERED: PIPERACILLIN/TAZOB 3.375 GM 3.375 GM in DEXTROSE 5%-WATER - 50 ML IVPB SCH (10:00)
--- NOTE | 2018-01-10 10:02 | PN ---
Physical Exam: SUBJECTIVE: Patient is a 52 y/o male with a history of reccurent abscesses, DM, CKD, asthma , HTN, HLD, chronic back pain, and CHF who presents with cellulitis in the gluteal folds. Patient reports the wound drained a lot over night. He reports he is still having pain and has trouble sleeping. OBJECTIVE: Vital Signs Period Temp Pulse Resp BP Sys/Swartz Pulse Ox Last 24 Hr 98.2 F-99.8 F 77-99 18-23 117-144/57-74 96 GENERAL: The patient is awake, alert, and fully oriented, in no acute distress. EYES: PERRL, extraocular movements intact LUNGS: Breath sounds equal, clear to auscultation bilaterally HEART: Regular rate and rhythm ABDOMEN: Soft, nontender, nondistended, normoactive bowel sounds EXTREMITIES: 2+ pulses, warm, well-perfused, no edema. SKIN: bilateral swelling lower gluteal clefts, induration bilaterally, non fluctuating, tender to palpation, erythematous, R cheek draining white pus no perianal abscess noted Laboratory Results - last 24 hr 01/09/18 01/09/18 01/09/18 01:55 01:55 10:45 WBC 13.7 H RBC 3.65 L Hgb 9.3 L Hct 30.2 L MCV 82.7 MCH 25.6 L MCHC 31.0 L RDW 15.8 Plt Count 344 MPV 7.9 Absolute Neuts (auto) 10.8 Neutrophils % 78.9 Lymphocytes % 10.3 Monocytes % 9.2 Eosinophils % 1.3 Basophils % 0.3 Nucleated RBC % 0 Retic Count PT with INR INR PTT (Actin FS) VBG pH 7.33 POC VBG pCO2 39.7 POC VBG pO2 29.0 Mixed VBG HCO3 20.3 Sodium Potassium Chloride Carbon Dioxide Anion Gap BUN Creatinine Creat Clearance w eGFR POC Glucometer Random Glucose Lactic Acid 1.0 Calcium Phosphorus Magnesium Iron TIBC Iron Saturation Ferritin Total Bilirubin AST ALT Alkaline Phosphatase Total Protein Albumin Urine Color Urine Appearance Urine pH Ur Specific [place] Urine Protein Urine Glucose (UA) Urine Ketones Urine Blood Urine Nitrite Urine Bilirubin Urine Urobilinogen Ur Leukocyte Esterase Urine WBC (Auto) Urine RBC (Auto) Ur Epithelial Cells Hyaline Casts Urine Mucus Random Vancomycin 01/09/18 01/09/18 01/09/18 10:45 10:45 10:45 WBC RBC Hgb Hct MCV MCH MCHC RDW Plt Count MPV Absolute Neuts (auto) Neutrophils % Lymphocytes % Monocytes % Eosinophils % Basophils % Nucleated RBC % Retic Count PT with INR 14.10 H INR 1.25 H PTT (Actin FS) 37.0 VBG pH POC VBG pCO2 POC VBG pO2 Mixed VBG HCO3 Sodium 139 Potassium 5.7 H Chloride 110 H Carbon Dioxide 24 Anion Gap 5 L BUN 39 H Creatinine 2.5 H Creat Clearance w eGFR 27.47 POC Glucometer Random Glucose 123 H D Lactic Acid Calcium 8.0 L Phosphorus 3.6 Magnesium 1.7 L Iron 12 L TIBC 175 L Iron Saturation 7 L Ferritin Total Bilirubin 0.2 AST 9 L D ALT 12 Alkaline Phosphatase 101 Total Protein 5.6 L Albumin 1.7 L Urine Color Urine Appearance Urine pH Ur Specific [place] Urine Protein Urine Glucose (UA) Urine Ketones Urine Blood Urine Nitrite Urine Bilirubin Urine Urobilinogen Ur Leukocyte Esterase Urine WBC (Auto) Urine RBC (Auto) Ur Epithelial Cells Hyaline Casts Urine Mucus Random Vancomycin 01/09/18 01/09/18 01/09/18 10:45 10:45 12:02 WBC RBC Hgb Hct MCV MCH MCHC RDW Plt Count MPV Absolute Neuts (auto) Neutrophils % Lymphocytes % Monocytes % Eosinophils % Basophils % Nucleated RBC % Retic Count 2.49 H PT with INR INR PTT (Actin FS) VBG pH POC VBG pCO2 POC VBG pO2 Mixed VBG HCO3 Sodium Potassium Chloride Carbon Dioxide Anion Gap BUN Creatinine Creat Clearance w eGFR POC Glucometer Random Glucose Lactic Acid Calcium Phosphorus Magnesium Iron TIBC Iron Saturation Ferritin 90.1 Total Bilirubin AST ALT Alkaline Phosphatase Total Protein Albumin Urine Color Yellow Urine Appearance Cloudy Urine pH 5.0 Ur Specific [place] 1.015 Urine Protein 3+ H Urine Glucose (UA) 3+ H Urine Ketones Negative Urine Blood 1+ H Urine Nitrite Negative Urine Bilirubin Negative Urine Urobilinogen Negative Ur Leukocyte Esterase Negative Urine WBC (Auto) 35 Urine RBC (Auto) None Ur Epithelial Cells Few Hyaline Casts 47 Urine Mucus Rare Random Vancomycin 01/09/18 01/09/18 01/09/18 12:52 12:56 16:52 WBC RBC Hgb Hct MCV MCH MCHC RDW Plt Count MPV Absolute Neuts (auto) Neutrophils % Lymphocytes % Monocytes % Eosinophils % Basophils % Nucleated RBC % Retic Count PT with INR INR PTT (Actin FS) VBG pH POC VBG pCO2 POC VBG pO2 Mixed VBG HCO3 Sodium Potassium Chloride Carbon Dioxide Anion Gap BUN Creatinine Creat Clearance w eGFR POC Glucometer 54.06107 75.84068 140 Random Glucose Lactic Acid Calcium Phosphorus Magnesium Iron TIBC Iron Saturation Ferritin Total Bilirubin AST ALT Alkaline Phosphatase Total Protein Albumin Urine Color Urine Appearance Urine pH Ur Specific [place] Urine Protein Urine Glucose (UA) Urine Ketones Urine Blood Urine Nitrite Urine Bilirubin Urine Urobilinogen Ur Leukocyte Esterase Urine WBC (Auto) Urine RBC (Auto) Ur Epithelial Cells Hyaline Casts Urine Mucus Random Vancomycin 01/09/18 01/10/18 01/10/18 21:39 01:27 06:15 WBC RBC Hgb Hct MCV MCH MCHC RDW Plt Count MPV Absolute Neuts (auto) Neutrophils % Lymphocytes % Monocytes % Eosinophils % Basophils % Nucleated RBC % Retic Count PT with INR INR PTT (Actin FS) VBG pH POC VBG pCO2 POC VBG pO2 Mixed VBG HCO3 Sodium Potassium Chloride Carbon Dioxide Anion Gap BUN Creatinine Creat Clearance w eGFR POC Glucometer 107 67 Random Glucose Lactic Acid Calcium Phosphorus Magnesium Iron TIBC Iron Saturation Ferritin Total Bilirubin AST ALT Alkaline Phosphatase Total Protein Albumin Urine Color Urine Appearance Urine pH Ur Specific [place] Urine Protein Urine Glucose (UA) Urine Ketones Urine Blood Urine Nitrite Urine Bilirubin Urine Urobilinogen Ur Leukocyte Esterase Urine WBC (Auto) Urine RBC (Auto) Ur Epithelial Cells Hyaline Casts Urine Mucus Random Vancomycin 11.57 01/10/18 01/10/18 01/10/18 06:15 06:15 06:19 WBC 14.8 H RBC 3.74 L Hgb 9.8 L Hct 31.4 L MCV 84.1 MCH 26.3 MCHC 31.3 L RDW 15.8 Plt Count 325 MPV 8.0 Absolute Neuts (auto) Neutrophils % Lymphocytes % Monocytes % Eosinophils % Basophils % Nucleated RBC % Retic Count PT with INR INR PTT (Actin FS) VBG pH POC VBG pCO2 POC VBG pO2 Mixed VBG HCO3 Sodium 141 Potassium 5.2 H Chloride 112 H Carbon Dioxide 17 L D Anion Gap 12 BUN 43 H Creatinine 3.0 H Creat Clearance w eGFR 22.26 POC Glucometer 63 Random Glucose 56 L D Lactic Acid Calcium 8.0 L Phosphorus Magnesium Iron TIBC Iron Saturation Ferritin Total Bilirubin 0.2 AST 9 L ALT 13 Alkaline Phosphatase 102 Total Protein 5.9 L Albumin 1.7 L Urine Color Urine Appearance Urine pH Ur Specific [place] Urine Protein Urine Glucose (UA) Urine Ketones Urine Blood Urine Nitrite Urine Bilirubin Urine Urobilinogen Ur Leukocyte Esterase Urine WBC (Auto) Urine RBC (Auto) Ur Epithelial Cells Hyaline Casts Urine Mucus Random Vancomycin Active Medications Generic Name Dose Route Start Last Admin Trade Name Freq PRN Reason Stop Dose Admin Acetaminophen 650 mg 01/09/18 09:01 01/09/18 09:56 Tylenol - PO 650 mg Q6H PRN Administration Fever Or Pain Amlodipine Besylate 5 mg 01/09/18 10:00 01/10/18 09:37 Norvasc - PO 5 mg DAILY MARY Administration Aspirin 81 mg 01/09/18 10:00 01/10/18 09:36 Asa - PO 81 mg DAILY MARY Administration Atorvastatin Calcium 40 mg 01/09/18 22:00 01/09/18 21:40 Lipitor - PO 40 mg HS MARY Administration Furosemide 40 mg 01/09/18 10:00 01/10/18 09:37 Lasix - PO 40 mg DAILY MARY Administration Heparin Sodium (Porcine) 5,000 unit 01/09/18 07:15 01/10/18 06:21 Heparin - SQ 5,000 unit TID MARY Administration Clindamycin Phosphate 600 mg in 50 mls @ 100 mls/hr 01/09/18 09:00 01/10/18 09:36 Cleocin 600 Mg Premix Ivpb - IVPB 100 mls/hr Q6H-IV MARY Administration Protocol Cefepime HCl 2 gm/ Dextrose 100 mls @ 200 mls/hr 01/09/18 23:00 01/10/18 09: 43 IVPB 200 mls/hr BID MARY Administration Protocol Insulin Aspart 1 vial 01/09/18 11:00 01/10/18 06:21 Novolog Vial Sliding Scale - SQ Not Given ACHS [facility] Protocol Insulin Detemir 60 units 01/11/18 07:00 Levemir Vial SQ AM MARY Insulin Detemir 20 units 01/10/18 22:00 Levemir Vial SQ HS MARY Lactobacillus Acidophilus 1 tab 01/09/18 10:00 01/10/18 09:37 Bacid - PO 1 tab DAILY MARY Administration Oxycodone HCl 5 mg 01/10/18 07:55 Roxicodone - PO Q6H PRN PAIN LEVEL 6-10 ASSESSMENT/PLAN: Patient is a 52 y/o male with a history of reccurent abscesses, DM, CKD, asthma , HTN, NLF, chronic back pain, and CHF who is admitted for cellulitis/abscess of the lower gluteal folds. #B/L glueteal cleft cellutlitis/abscess - ED: Vanc and Zosyn - Cefepime and Cindamycin 600mg (day 2) - WBC: 14.8 - ID consult, Dr. Diaz - Dr. Kaur: I & D for tomorrow 01/11 - Patient NPO, DVT ppx held for morning, protonix ppx - CT not indicative of abscess - tylenol 650, oxycodone 5mg Q6H prn - CX of wound: beta hemolytic strep, f/u final sensitivities - warm compress prn - continue probiotics - long history of noncompliance and infections, most recent November 30 perianal abscess #CKD - BUN 37, Cr 2.5, BUN baseline 50, Cr baseline 3 - f/u Dr. Hanley #Anemia - normocytic, possibly 2/2 to CKD - f/u iron studies #CHF - continue furosemide 40 mg - atorvastain 40 mg #DM - Levimir 60 units am, 20 units pm - SS as needed #HTN - continue amlodipine 5mg #DVT ppx - heparin TID PCP: Dr. Fry, Nephro: Shantal Visit type - Emergency Visit Emergency Visit: No - New Patient This patient is new to me today: No - Critical Care Critical Care patient: No
--- NOTE | 2018-01-10 10:24 | PN ---
Progress Note (short form) - Note Progress Note: reports continued pain no fevers reports a lot of spontaneous drainage from the right buttock abscess Vital Signs Period Temp Pulse Resp BP Sys/Swartz Pulse Ox Last 24 Hr 98.2 F-99.8 F 77-99 117-144/57-74 96 cor-rrr lungs clear +copious purulent drainage from the right buttock abscess minimal drainage from left buttock abscess +induration CBC, BMP 01/10/18 06:15 01/10/18 06:15 Microbiology 01/09/18 11:15 Abscess Wound Culture - Preliminary Beta Hemolytic Strep 01/09/18 11:15 Abscess Wound Culture - Preliminary Beta Hemolytic Strep 01/09/18 12:02 Urine - Urine Clean Catch Urine Culture - Final NO GROWTH OBTAINED 01/09/18 01:55 Blood - Peripheral Venous Blood Culture - Preliminary NO GROWTH OBTAINED AFTER 24 HOURS, INCUBATION TO CONTINUE FOR 4 DAYS. 01/09/18 01:55 Blood - Peripheral Venous Blood Culture - Preliminary NO GROWTH OBTAINED AFTER 24 HOURS, INCUBATION TO CONTINUE FOR 4 DAYS. a/p buttock abscesses diabetes obesity ckd continue clindamycin and cefepime d/w Dr Kaur yesterday for surgical f/u today Problem List - Problems (1) Abscess of buttock Code(s): L02.31 - CUTANEOUS ABSCESS OF BUTTOCK (2) Diabetes mellitus type 2, uncontrolled Code(s): E11.65 - TYPE 2 DIABETES MELLITUS WITH HYPERGLYCEMIA (3) Morbid obesity Code(s): E66.01 - MORBID (SEVERE) OBESITY DUE TO EXCESS CALORIES
--- NOTE | 2018-01-10 12:40 | SPA.PREOP ---
- PRE-OP NOTE Dx: Bilateral gluteal cleft abscesses Planned Procedure: Right gluteal I & D, possible left gluteal Surgeon: Joshua Kaur Consent: To be obtained by surgeon after risks, benefits and alternatives. Last Vital Signs Temp Pulse Resp BP Pulse Ox 98.4 F 78 18 119/69 96 01/10/18 09:09 01/10/18 09:09 01/10/18 09:09 01/10/18 09:09 01/10/18 09:00 Lab Results WBC 14.8 K/mm3 (4.0-10.0) H 01/10/18 06:15 RBC 3.74 M/mm3 (4.00-5.60) L 01/10/18 06:15 Hgb 9.8 GM/dL (11.7-16.9) L 01/10/18 06:15 Hct 31.4 % (35.4-49) L 01/10/18 06:15 MCV 84.1 fl (80-96) 01/10/18 06:15 MCHC 31.3 g/dl (32.0-35.9) L 01/10/18 06:15 RDW 15.8 % (11.9-15.9) 01/10/18 06:15 Plt Count 325 K/MM3 (134-434) 01/10/18 06:15 Sodium 141 mmol/L (136-145) 01/10/18 06:15 Potassium 5.2 mmol/L (3.5-5.1) H 01/10/18 06:15 Chloride 112 mmol/L (98-107) H 01/10/18 06:15 Carbon Dioxide 17 mmol/L (21-32) L D 01/10/18 06:15 Anion Gap 12 (8-16) 01/10/18 06:15 BUN 43 mg/dL (7-18) H 01/10/18 06:15 Creatinine 3.0 mg/dL (0.7-1.3) H 01/10/18 06:15 Random Glucose 56 mg/dL (74-106) L D 01/10/18 06:15 Calcium 8.0 mg/dL (8.5-10.1) L 01/10/18 06:15 Blood Type Cancelled 01/09/18 02:24 Antibody Screen Cancelled 01/09/18 02:24 INR 1.25 (0.82-1.09) H 01/09/18 10:45 - ASSESSMENT/PLAN Problem List - Problems (1) Abscess of buttock Assessment/Plan: 1. Make NPO after midnight except po meds 2. GI/DVT PPX 3. Medical optimization / clearance Code(s): L02.31 - CUTANEOUS ABSCESS OF BUTTOCK (2) Diabetes mellitus type 2, uncontrolled Assessment/Plan: Tight glycemic control Code(s): E11.65 - TYPE 2 DIABETES MELLITUS WITH HYPERGLYCEMIA (3) Morbid obesity Code(s): E66.01 - MORBID (SEVERE) OBESITY DUE TO EXCESS CALORIES
[2018-01-10 14:34] VITALS: BMI 45.1
[2018-01-10] MEDS: oxyCODONE HCL 5 MG TABLET PO PRN ×2 (15:50→21:35)
--- NOTE | 2018-01-10 16:11 | PN ---
Teaching Attending Note Name of Resident: Vijaya Louis (Nephrology) ATTENDING PHYSICIAN STATEMENT I saw and evaluated the patient. I reviewed the resident's note and discussed the case with the resident. I agree with the resident's findings and plan as documented. Renal Pt seen and examined. His wound is draining. He denies shortness of breath. He feels that his edema is improving. Current Medications Generic Name Dose Route Start Last Admin Trade Name Freq PRN Reason Stop Dose Admin Acetaminophen 650 mg 01/09/18 09:01 01/09/18 09:56 Tylenol - PO 650 mg Q6H PRN Administration Fever Or Pain Amlodipine Besylate 5 mg 01/09/18 10:00 01/10/18 09:37 Norvasc - PO 5 mg DAILY MARY Administration Aspirin 81 mg 01/09/18 10:00 01/10/18 09:36 Asa - PO 81 mg DAILY MARY Administration Atorvastatin Calcium 40 mg 01/09/18 22:00 01/09/18 21:40 Lipitor - PO 40 mg HS MARY Administration Furosemide 40 mg 01/09/18 10:00 01/10/18 09:37 Lasix - PO 40 mg DAILY MARY Administration Heparin Sodium (Porcine) 5,000 unit 01/09/18 07:15 01/10/18 14:27 Heparin - SQ 5,000 unit TID MARY Administration Clindamycin Phosphate 600 mg in 50 mls @ 100 mls/hr 01/09/18 09:00 01/10/18 14:27 Cleocin 600 Mg Premix Ivpb - IVPB 100 mls/hr Q6H-IV MARY Administration Protocol Cefepime HCl 2 gm/ Dextrose 100 mls @ 200 mls/hr 01/09/18 23:00 01/10/18 09: 43 IVPB 200 mls/hr BID MARY Administration Protocol Insulin Aspart 1 vial 01/09/18 11:00 01/10/18 12:27 Novolog Vial Sliding Scale - SQ Not Given ACHS MARY Protocol Insulin Detemir 60 units 01/11/18 07:00 Levemir Vial SQ AM MARY Insulin Detemir 20 units 01/10/18 22:00 Levemir Vial SQ HS MARY Lactobacillus Acidophilus 1 tab 01/09/18 10:00 01/10/18 09:37 Bacid - PO 1 tab DAILY MARY Administration Oxycodone HCl 5 mg 01/10/18 07:55 01/10/18 15:50 Roxicodone - PO 5 mg Q6H PRN Administration PAIN LEVEL 6-10 Pantoprazole Sodium 40 mg 01/11/18 10:00 Protonix Iv IVPUSH DAILY MARY Last Vital Signs Temp Pulse Resp BP Pulse Ox 99.4 F 86 18 122/72 96 01/10/18 13:59 01/10/18 13:59 01/10/18 13:59 01/10/18 13:59 01/10/18 09:00 cardio s1s2 pulm clear GI obese ext plus 1 edema neuro awake and alert Impression 1. CKD 2. CHF 3. hx of DFU 4. hx of osteomyelitis 5. hx hyperkalemia 6. DM 7. HTN 8. obesity 9. anemia 10. hx of urinary obstruction/high post void residual 11. nephrotic range proteinuria 12. perineal abscess Plan - cont with lasix - potassium is improving - low K diet - repeat labs in am - abx per ID, renal dose - wound care
--- NOTE | 2018-01-10 17:27 | PN ---
Teaching Attending Note Name of Resident: Niya Atkinson ATTENDING PHYSICIAN STATEMENT I saw and evaluated the patient. I reviewed the resident's note and discussed the case with the resident. I agree with the resident's findings and plan as documented. SUBJECTIVE: Patient feels better, his wound is draining as per patient. OBJECTIVE: Vital Signs Temperature 99.3 F 01/10/18 16:25 Pulse Rate 85 01/10/18 16:25 Respiratory Rate 20 01/10/18 16:25 Blood Pressure 123/91 01/10/18 16:25 O2 Sat by Pulse Oximetry (%) 96 01/10/18 09:00 CBCD WBC 14.8 K/mm3 (4.0-10.0) H 01/10/18 06:15 RBC 3.74 M/mm3 (4.00-5.60) L 01/10/18 06:15 Hgb 9.8 GM/dL (11.7-16.9) L 01/10/18 06:15 Hct 31.4 % (35.4-49) L 01/10/18 06:15 MCV 84.1 fl (80-96) 01/10/18 06:15 MCHC 31.3 g/dl (32.0-35.9) L 01/10/18 06:15 RDW 15.8 % (11.9-15.9) 01/10/18 06:15 Plt Count 325 K/MM3 (134-434) 01/10/18 06:15 MPV 8.0 fl (7.5-11.1) 01/10/18 06:15 CMP Sodium 141 mmol/L (136-145) 01/10/18 06:15 Potassium 5.2 mmol/L (3.5-5.1) H 01/10/18 06:15 Chloride 112 mmol/L (98-107) H 01/10/18 06:15 Carbon Dioxide 17 mmol/L (21-32) L D 01/10/18 06:15 Anion Gap 12 (8-16) 01/10/18 06:15 BUN 43 mg/dL (7-18) H 01/10/18 06:15 Creatinine 3.0 mg/dL (0.7-1.3) H 01/10/18 06:15 Creat Clearance w eGFR 22.26 (>60) 07/24/18 06:15 Random Glucose 56 mg/dL (74-106) L D 01/10/18 06:15 Calcium 8.0 mg/dL (8.5-10.1) L 01/10/18 06:15 Total Bilirubin 0.2 mg/dL (0.2-1.0) 01/10/18 06:15 AST 9 U/L (15-37) L 01/10/18 06:15 ALT 13 U/L (12-78) 01/10/18 06:15 Alkaline Phosphatase 102 U/L (45-117) 01/10/18 06:15 Total Protein 5.9 g/dl (6.4-8.2) L 01/10/18 06:15 Albumin 1.7 g/dl (3.4-5.0) L 01/10/18 06:15 CARDIAC ENZYMES Troponin I 0.03 ng/ml (0.00-0.05) D 01/09/18 03:35 Home Medications Medication Instructions Recorded Acetaminophen [Tylenol .Regular 650 mg PO Q6H PRN #30 tablet 11/30/17 Strength -] Amlodipine Besylate [Norvasc -] 5 mg PO DAILY #30 tablet 11/30/17 Amox-Tr/K Cl [Augmentin 875-125mg 1 tab PO BID@0800,1730 #14 tablet 11/30/17 Tablet -] Atorvastatin Ca [Lipitor] 40 mg PO HS #30 tablet 11/30/17 Insulin Glargine,Hum.rec.anlog 40 unit SQ BID 30 Days vial 11/30/17 [Lantus] Insulin Sliding Scale [Novolog 1 vial SQ TIDAC 30 Days units 11/30/17 Vial Sliding Scale -] Furosemide [Lasix -] 40 mg PO DAILY 01/09/18 Current Medications Generic Name Dose Route Start Last Admin Trade Name Freq PRN Reason Stop Dose Admin Acetaminophen 650 mg 01/09/18 09:01 01/09/18 09:56 Tylenol - PO 650 mg Q6H PRN Administration Fever Or Pain Amlodipine Besylate 5 mg 01/09/18 10:00 01/10/18 09:37 Norvasc - PO 5 mg DAILY [facility] Administration Aspirin 81 mg 01/09/18 10:00 01/10/18 09:36 Asa - PO 81 mg DAILY [facility] Administration Atorvastatin Calcium 40 mg 01/09/18 22:00 01/09/18 21:40 Lipitor - PO 40 mg HS [facility] Administration Furosemide 40 mg 01/09/18 10:00 01/10/18 09:37 Lasix - PO 40 mg DAILY [facility] Administration Heparin Sodium (Porcine) 5,000 unit 01/09/18 07:15 01/10/18 14:27 Heparin - SQ 5,000 unit TID [facility] Administration Clindamycin Phosphate 600 mg in 50 mls @ 100 mls/hr 01/09/18 09:00 01/10/18 14:27 Cleocin 600 Mg Premix Ivpb - IVPB 100 mls/hr Q6H-IV [facility] Administration Protocol Cefepime HCl 2 gm/ Dextrose 100 mls @ 200 mls/hr 01/09/18 23:00 01/10/18 09: 43 IVPB 200 mls/hr BID [facility] Administration Protocol Insulin Aspart 1 vial 01/09/18 11:00 01/10/18 12:27 Novolog Vial Sliding Scale - SQ Not Given ACHS [facility] Protocol Insulin Detemir 20 units 01/10/18 22:00 Levemir Vial SQ HS [facility] Insulin Detemir 40 units 01/11/18 07:00 Levemir Vial SQ AM [facility] Lactobacillus Acidophilus 1 tab 01/09/18 10:00 01/10/18 09:37 Bacid - PO 1 tab DAILY [facility] Administration Oxycodone HCl 5 mg 01/10/18 07:55 01/10/18 15:50 Roxicodone - PO 5 mg Q6H PRN Administration PAIN LEVEL 6-10 Pantoprazole Sodium 40 mg 01/11/18 10:00 Protonix Iv IVPUSH DAILY [facility] Microbiology 01/09/18 11:15 Abscess Gram Stain - Final 01/09/18 11:15 Abscess Wound Culture - Preliminary Beta Hemolytic Strep 01/09/18 11:15 Abscess Gram Stain - Final 01/09/18 11:15 Abscess Wound Culture - Preliminary Beta Hemolytic Strep 01/09/18 12:02 Urine - Urine Clean Catch Urine Culture - Final NO GROWTH OBTAINED 01/09/18 01:55 Blood - Peripheral Venous Blood Culture - Preliminary NO GROWTH OBTAINED AFTER 24 HOURS, INCUBATION TO CONTINUE FOR 4 DAYS. 01/09/18 01:55 Blood - Peripheral Venous Blood Culture - Preliminary NO GROWTH OBTAINED AFTER 24 HOURS, INCUBATION TO CONTINUE FOR 4 DAYS. PE: per resident's note Gluteal area: positive for drainage ASSESSMENT AND PLAN: Patient is a 52 y/o male with a history of recurrent abscesses, DM, CKD, asthma , HTN, HLD, chronic back pain, and CHF who presents with cellulitis of the gluteal folds with drainage. # Perineal abscess: On IV antibiotic continue Cefepime and Clindamycin as per ID continue , follow the wound Cx , and surgery on the case .Follow cx. Tramadol changed to Oxycodon since was not helping his pain # DM on Levemir reduced the night and day dose (40U) and night dose(20U) since patient was becoming hypoglycemic and SS with coverage # Hx of CHF on Lasix continue # CKD (cr-2.5-->3.0 today), nephro on the case, as per nephro patient has nephrotic range proteinurea , Antibiotics are renally dosed. Continue to monitor # Anemia in chronic kidney disease most likely due to nephro dz DVT px: Heparin sq
[2018-01-10 19:22] LABS: HEMATOCRIT 30.1 % (35.4-49); HEMOGLOBIN 9.4 GM/dL (11.7-16.9); MCH 25.7 pg (25.7-33.7); MEAN CELL VOLUME 82.7 fl (80-96); MEAN PLT VOLUME 8.5 fl (7.5-11.1); PLATELET COUNT 351 K/MM3 (134-434); RBC 3.64 M/mm3 (4.00-5.60); RDW 15.6 % (11.9-15.9); WHITE BLOOD COUNT 12.1 K/mm3 (4.0-10.0)
[2018-01-10 19:54] LABS: ANION GAP 9 (8-16); BLOOD UREA NITROGEN 45 mg/dL (7-18); CALCIUM 7.7 mg/dL (8.5-10.1); CHLORIDE 110 mmol/L (98-107); CO2 21 mmol/L (21-32); CREATININE 3.1 mg/dL (0.7-1.3); GLUCOSE,RANDOM 62 mg/dL (74-106); POTASSIUM 5.3 mmol/L (3.5-5.1); SODIUM 140 mmol/L (136-145)
[2018-01-10] MEDS: ATORVASTATIN CA 40 MG TABLET (FP) PO SCH (21:35)
[2018-01-10] MEDS ORDERED: INSULIN (LEVEMIR) 100 UNITS/ML UNITS SQ SCH (22:00)
[2018-01-11] MEDS: CLINDAMYCIN 600MG PREMIX IVPB 600 MG/50 ML BAG IVPB SCH ×4 (02:18→21:50)
[2018-01-11] MEDS: INSULIN SLIDING SCALE (NOVOLOG) 1 VIAL SQ SCH ×4 (06:27→21:52)
[2018-01-11] MEDS: oxyCODONE HCL 5 MG TABLET PO PRN ×3 (06:48→21:52)
[2018-01-11] MEDS ORDERED: INSULIN (LEVEMIR) 100 UNITS/ML UNITS SQ SCH ×3 (07:00→22:00)
[2018-01-11 07:42] LABS: ALBUMIN 1.5 g/dl (3.4-5.0); ANION GAP 9 (8-16); BLOOD UREA NITROGEN 47 mg/dL (7-18); CALCIUM 7.4 mg/dL (8.5-10.1); CHLORIDE 111 mmol/L (98-107); CO2 20 mmol/L (21-32); GLUCOSE,RANDOM 139 mg/dL (74-106); POTASSIUM 5.2 mmol/L (3.5-5.1); SGOT/AST 10 U/L (15-37); SGPT/ALT 15 U/L (12-78); SODIUM 140 mmol/L (136-145)
[2018-01-11 07:44] LABS: ALK PHOS 104 U/L (45-117); CREATININE 3.4 mg/dL (0.7-1.3); TOT PROT 5.6 g/dl (6.4-8.2)
[2018-01-11 08:03] LABS: BILIRUBIN,TOTAL < 0.1 mg/dL (0.2-1.0)
[2018-01-11 08:06] LABS: HEMATOCRIT 29.8 % (35.4-49); HEMOGLOBIN 9.5 GM/dL (11.7-16.9); MCH 26.4 pg (25.7-33.7); MCHC 31.9 g/dl (32.0-35.9); MEAN PLT VOLUME 8.5 fl (7.5-11.1); PLATELET COUNT 325 K/MM3 (134-434); RBC 3.59 M/mm3 (4.00-5.60); RDW 15.7 % (11.9-15.9); WHITE BLOOD COUNT 8.8 K/mm3 (4.0-10.0)
--- NOTE | 2018-01-11 08:53 | PN ---
Progress Note (short form) - Note Progress Note: less pain less drainage Vital Signs Period Temp Pulse Resp BP Sys/Swartz Pulse Ox Last 24 Hr 98.4 F-99.4 F 78-86 18-20 96-123/57-91 96-99 cor-rrr lungs clear abd soft,nt both buttocks indurated with purulent drainage expressed when area is palpated +tenderness to palpation ext trace edema CBC, BMP 01/11/18 06:40 01/11/18 06:40 Microbiology 01/09/18 01:55 Blood - Peripheral Venous Blood Culture - Preliminary NO GROWTH OBTAINED AFTER 48 HOURS, INCUBATION TO CONTINUE FOR 3 DAYS. 01/09/18 01:55 Blood - Peripheral Venous Blood Culture - Preliminary NO GROWTH OBTAINED AFTER 48 HOURS, INCUBATION TO CONTINUE FOR 3 DAYS. 01/09/18 11:15 Abscess Gram Stain - Final 01/09/18 11:15 Abscess Wound Culture - Preliminary Beta Hemolytic Strep 01/09/18 11:15 Abscess Gram Stain - Final 01/09/18 11:15 Abscess Wound Culture - Preliminary Beta Hemolytic Strep 01/09/18 12:02 Urine - Urine Clean Catch Urine Culture - Final NO GROWTH OBTAINED a/p buttock abscesses diabetes obesity ckd continue clindamycin d/c cefepime ceftriaxone for strep f/u cultures Problem List - Problems (1) Abscess of buttock Code(s): L02.31 - CUTANEOUS ABSCESS OF BUTTOCK (2) Diabetes mellitus type 2, uncontrolled Code(s): E11.65 - TYPE 2 DIABETES MELLITUS WITH HYPERGLYCEMIA (3) Morbid obesity Code(s): E66.01 - MORBID (SEVERE) OBESITY DUE TO EXCESS CALORIES
[2018-01-11] MEDS ORDERED: PANTOPRAZOLE SODIUM 40 MG VIAL IVPUSH SCH (10:00)
[2018-01-11] MEDS ORDERED: CEFTRIAXONE 2 GM in DEXTROSE 5%-WATER 100 ML IVPB SCH (10:00)
[2018-01-11] MEDS ORDERED: SODIUM BICARBONATE 650 MG TABLET PO SCH ×2 (10:00→14:00)
--- NOTE | 2018-01-11 10:32 | PN ---
Progress Note, Physician History of Present Illness: patient seen and examined at bedside. no acute events overnight. patient states the pain in the buttock is a little bit improved since his pain meds were switched. he denies any CP/N/V/SOB and is not having any trouble urinating. Patient going today for I and D of abscess. - Current Medication List Current Medications: Active Medications Acetaminophen (Tylenol -) 650 mg PO Q6H PRN PRN Reason: Fever Or Pain Last Admin: 01/09/18 09:56 Dose: 650 mg Amlodipine Besylate (Norvasc -) 5 mg PO DAILY [facility] Last Admin: 01/10/18 09:37 Dose: 5 mg Aspirin (Asa -) 81 mg PO DAILY [facility] Last Admin: 01/10/18 09:36 Dose: 81 mg Atorvastatin Calcium (Lipitor -) 40 mg PO HS [facility] Last Admin: 01/10/18 21:35 Dose: 40 mg Furosemide (Lasix -) 40 mg PO DAILY [facility] Last Admin: 01/10/18 09:37 Dose: 40 mg Heparin Sodium (Porcine) (Heparin -) 5,000 unit SQ TID [facility] Last Admin: 01/10/18 21:34 Dose: 5,000 unit Clindamycin Phosphate (Cleocin 600 Mg Premix Ivpb -) 600 mg in 50 mls @ 100 mls /hr IVPB Q6H-IV [facility]; Protocol Last Admin: 01/11/18 02:18 Dose: 100 mls/hr Ceftriaxone Sodium 2 gm/ (Dextrose) 100 mls @ 200 mls/hr IVPB DAILY [facility]; Protocol Insulin Aspart (Novolog Vial Sliding Scale -) 1 vial SQ ACHS [facility]; Protocol Last Admin: 01/11/18 06:27 Dose: Not Given Insulin Detemir (Levemir Vial) 20 units SQ HS [facility] Last Admin: 01/10/18 21:37 Dose: 20 units Insulin Detemir (Levemir Vial) 40 units SQ AM [facility] Last Admin: 01/11/18 06:27 Dose: Not Given Lactobacillus Acidophilus (Bacid -) 1 tab PO DAILY [facility] Last Admin: 01/10/18 09:37 Dose: 1 tab Oxycodone HCl (Roxicodone -) 5 mg PO Q6H PRN PRN Reason: PAIN LEVEL 6-10 Last Admin: 01/11/18 06:48 Dose: 5 mg Pantoprazole Sodium (Protonix Iv) 40 mg IVPUSH DAILY [facility] Sodium Bicarbonate (Sodium Bicarbonate -) 650 mg PO BID [facility] - Objective Vital Signs: Vital Signs Temperature 98.5 F 01/11/18 06:00 Pulse Rate 80 01/11/18 06:00 Respiratory Rate 20 01/11/18 06:00 Blood Pressure 96/57 01/11/18 06:00 O2 Sat by Pulse Oximetry (%) 99 01/10/18 21:00 Constitutional: Yes: No Distress Cardiovascular: Yes: Regular Rate and Rhythm, S2 Respiratory: Yes: CTA Bilaterally Gastrointestinal: Yes: Normal Bowel Sounds, Soft. No: Tenderness Edema: LLE: Trace, RLE: Trace Neurological: Yes: Alert Psychiatric: Yes: Alert Labs: CBC, BMP 01/11/18 06:40 01/11/18 06:40 INR, PTT INR 1.25 (0.82-1.09) H 01/09/18 10:45 Problem List - Problems (1) CKD (chronic kidney disease) Code(s): N18.9 - CHRONIC KIDNEY DISEASE, UNSPECIFIED Qualifiers: Chronic kidney disease stage: unspecified stage Qualified Code(s): N18.9 - Chronic kidney disease, unspecified (2) Perineal abscess Code(s): L02.215 - CUTANEOUS ABSCESS OF PERINEUM (3) Anemia in chronic kidney disease Code(s): N18.9 - CHRONIC KIDNEY DISEASE, UNSPECIFIED; D63.1 - ANEMIA IN CHRONIC KIDNEY DISEASE Assessment/Plan patient going today for I and D of abscess -repeat labs in AM -low K diet -continue wth lasix -monitor fluid status
[2018-01-11] MEDS ORDERED: PT OWN MED DRAWER 7, Y5N ONE (10:38)
[2018-01-11] MEDS: FUROSEMIDE 40 MG TABLET (FP) PO SCH (10:44)
[2018-01-11] MEDS: LACTOBACILLUS ACIDOPHILUS 1 TABLET PO SCH (10:44)
[2018-01-11] MEDS: amLODIPine BESYLATE 5 MG TABLET (FP) PO SCH (10:44)
[2018-01-11] MEDS ORDERED: MIDAZOLAM HCL 2 MG/2 ML SINGLE DOSE VIAL ONE (12:48)
[2018-01-11] MEDS ORDERED: fentaNYL CITRATE 250 MCG/5 ML VIAL ONE (12:50)
[2018-01-11] MEDS ORDERED: PROPOFOL 20 ML ONE ×2 (12:53)
--- NOTE | 2018-01-11 12:56 | PN ---
Teaching Attending Note Name of Resident: Vijaya Louis (Nephrology) ATTENDING PHYSICIAN STATEMENT I saw and evaluated the patient. I reviewed the resident's note and discussed the case with the resident. I agree with the resident's findings and plan as documented. Renal Follow up Pt seen and examined at bedside. He is awake and alert. He is going for I and D today. Current Medications Generic Name Dose Route Start Last Admin Trade Name Freq PRN Reason Stop Dose Admin Acetaminophen 650 mg 01/09/18 09:01 01/09/18 09:56 Tylenol - PO 650 mg Q6H PRN Administration Fever Or Pain Amlodipine Besylate 5 mg 01/09/18 10:00 01/11/18 10:44 Norvasc - PO 5 mg DAILY [facility] Administration Aspirin 81 mg 01/09/18 10:00 01/10/18 09:36 Asa - PO 81 mg DAILY [facility] Administration Atorvastatin Calcium 40 mg 01/09/18 22:00 01/10/18 21:35 Lipitor - PO 40 mg HS [facility] Administration Furosemide 40 mg 01/09/18 10:00 01/11/18 10:44 Lasix - PO 40 mg DAILY [facility] Administration Heparin Sodium (Porcine) 5,000 unit 01/09/18 07:15 01/10/18 21:34 Heparin - SQ 5,000 unit TID [facility] Administration Clindamycin Phosphate 600 mg in 50 mls @ 100 mls/hr 01/09/18 09:00 01/11/18 10:43 Cleocin 600 Mg Premix Ivpb - IVPB 100 mls/hr Q6H-IV [facility] Administration Protocol Ceftriaxone Sodium 2 gm/ 100 mls @ 200 mls/hr 01/11/18 10:00 Dextrose IVPB DAILY [facility] Protocol Insulin Aspart 1 vial 01/09/18 11:00 01/11/18 11:05 Novolog Vial Sliding Scale - SQ Not Given ACHS [facility] Protocol Insulin Detemir 20 units 01/10/18 22:00 01/10/18 21:37 Levemir Vial SQ 20 units HS [facility] Administration Insulin Detemir 40 units 01/11/18 07:00 01/11/18 06:27 Levemir Vial SQ Not Given AM [facility] Lactobacillus Acidophilus 1 tab 01/09/18 10:00 01/11/18 10:44 Bacid - PO 1 tab DAILY [facility] Administration Oxycodone HCl 5 mg 01/10/18 07:55 01/11/18 06:48 Roxicodone - PO 5 mg Q6H PRN Administration PAIN LEVEL 6-10 Pantoprazole Sodium 40 mg 01/11/18 10:00 01/11/18 10:44 Protonix Iv IVPUSH 40 mg DAILY [facility] Administration Sodium Bicarbonate 650 mg 01/11/18 10:00 01/11/18 10:45 Sodium Bicarbonate - PO 650 mg BID [facility] Administration Last Vital Signs Temp Pulse Resp BP Pulse Ox 98.9 F 80 18 128/64 99 01/11/18 09:00 01/11/18 09:00 01/11/18 09:00 01/11/18 09:00 01/10/18 21:00 Laboratory Tests 01/11/18 06:40 Potassium 5.2 H Carbon Dioxide 20 L Creatinine 3.4 H cardio s1s2 pulm clear GI obese ext plus 1 edema neuro awake and alert Impression 1. CKD 2. CHF 3. hx of DFU 4. hx of osteomyelitis 5. hx hyperkalemia 6. DM 7. HTN 8. obesity 9. anemia 10. hx of urinary obstruction/high post void residual 11. nephrotic range proteinuria 12. perineal abscess Plan - OR today - cont PO bicarb - cont PO lasix - low potassium diet - abx per ID, renal dose - wound care
[2018-01-11] MEDS ORDERED: NEOSTIGMINE METHYLSULFATE 0.5 MG/ML - 10 ML MDV ONE (13:25)
[2018-01-11] MEDS ORDERED: LACTATED RINGERS SOLUTION 1,000 ML IV SCH (14:00)
[2018-01-11] MEDS ORDERED: ONDANSETRON 4 MG/2 ML VIAL IVPUSH PRN (14:00)
--- NOTE | 2018-01-11 14:03 | OP ---
Operative Note - Note: Operative Date: 01/11/18 Pre-Operative Diagnosis: ABSSSI both buttocks Operation: incision/drainage b/l buttock abscesses Findings: b/l buttock abscesses/? perirectal/perianal Surgeon: Joshua Kaur Anesthesiologist/WATER PUMPING STATION ENGINEER: Candice Qureshi MD Anesthesia: General Estimated Blood Loss (mls): 15 Drains & Tubes with Location: kerlix packing
[2018-01-11] MEDS ORDERED: ACETAMINOPHEN 325 MG TABLET (FP) PO PRN (14:13)
[2018-01-11] MEDS: ASPIRIN 81 MG CHEWABLE TABLETS PO SCH (15:25)
[2018-01-11] MEDS ORDERED: DEXTROSE 5%-WATER 100 ML IVPB ONE (15:38)
--- NOTE | 2018-01-11 15:53 | PN ---
Physical Exam: SUBJECTIVE: Patient is a 52 y/o male with a history of reccurent abscesses, DM, CKD, asthma , HTN, HLD, chronic back pain, and CHF who presents with cellulitis in the gluteal folds. Patient reports the wound drained a lot over night. Patient receiving I & D today. OBJECTIVE: Vital Signs Period Temp Pulse Resp BP Sys/Swartz Pulse Ox Last 24 Hr 98.2 F-99.3 F 75-95 18-20 96-138/57-117 94-99 GENERAL: The patient is awake, alert, and fully oriented, in no acute distress. EYES: PERRL, extraocular movements intact LUNGS: Breath sounds equal, clear to auscultation bilaterally HEART: Regular rate and rhythm ABDOMEN: Soft, nontender, nondistended, normoactive bowel sounds EXTREMITIES: 2+ pulses, warm, well-perfused, no edema. SKIN: bilateral swelling lower gluteal clefts, induration bilaterally, non fluctuating, tender to palpation, erythematous, R cheek draining white pus no perianal abscess noted Laboratory Results - last 24 hr 01/10/18 01/10/18 01/10/18 17:38 18:00 18:00 WBC 12.1 H RBC 3.64 L Hgb 9.4 L Hct 30.1 L MCV 82.7 MCH 25.7 MCHC 31.0 L RDW 15.6 Plt Count 351 MPV 8.5 Sodium 140 Potassium 5.3 H Chloride 110 H Carbon Dioxide 21 D Anion Gap 9 BUN 45 H Creatinine 3.1 H Creat Clearance w eGFR 21.43 POC Glucometer 74 Random Glucose 62 L Calcium 7.7 L Total Bilirubin AST ALT Alkaline Phosphatase Total Protein Albumin 01/10/18 01/11/18 01/11/18 21:32 06:25 06:40 WBC RBC Hgb Hct MCV MCH MCHC RDW Plt Count MPV Sodium 140 Potassium 5.2 H Chloride 111 H Carbon Dioxide 20 L Anion Gap 9 BUN 47 H Creatinine 3.4 H Creat Clearance w eGFR 19.27 POC Glucometer 126 158 Random Glucose 139 H D Calcium 7.4 L Total Bilirubin < 0.1 L AST 10 L ALT 15 Alkaline Phosphatase 104 Total Protein 5.6 L Albumin 1.5 L 01/11/18 01/11/18 06:40 11:02 WBC 8.8 RBC 3.59 L Hgb 9.5 L Hct 29.8 L MCV 83.0 MCH 26.4 MCHC 31.9 L RDW 15.7 Plt Count 325 MPV 8.5 Sodium Potassium Chloride Carbon Dioxide Anion Gap BUN Creatinine Creat Clearance w eGFR POC Glucometer 110 Random Glucose Calcium Total Bilirubin AST ALT Alkaline Phosphatase Total Protein Albumin Active Medications Generic Name Dose Route Start Last Admin Trade Name Freq PRN Reason Stop Dose Admin Acetaminophen 650 mg 01/11/18 14:13 Tylenol - PO Q6H PRN FEVER Amlodipine Besylate 5 mg 01/12/18 10:00 Norvasc - PO DAILY [facility] Aspirin 81 mg 01/12/18 10:00 Asa - PO DAILY [facility] Atorvastatin Calcium 40 mg 01/11/18 22:00 Lipitor - PO HS [facility] Furosemide 40 mg 01/12/18 10:00 Lasix - PO DAILY [facility] Heparin Sodium (Porcine) 5,000 unit 01/11/18 22:00 Heparin - SQ TID [facility] Lactated Ringer's 1,000 mls @ 75 mls/hr 01/11/18 14:00 01/11/18 15:26 Lactated Ringers Solution IV Not Given ASDIR [facility] Clindamycin Phosphate 600 mg in 50 mls @ 100 mls/hr 01/11/18 15:30 Cleocin 600 Mg Premix Ivpb - IVPB Q6H-IV [facility] Protocol Ceftriaxone Sodium 2 gm/ 100 mls @ 200 mls/hr 01/11/18 15:30 Dextrose IVPB DAILY [facility] Protocol Insulin Aspart 1 vial 01/11/18 16:30 Novolog Vial Sliding Scale - SQ ACHS [facility] Protocol Insulin Detemir 20 units 01/11/18 22:00 Levemir Vial SQ HS [facility] Insulin Detemir 40 units 01/12/18 07:00 Levemir Vial SQ AM [facility] Lactobacillus Acidophilus 1 tab 01/12/18 10:00 Bacid - PO DAILY [facility] Oxycodone HCl 5 mg 01/11/18 14:13 Roxicodone - PO Q6H PRN PAIN LEVEL 6-10 Pantoprazole Sodium 40 mg 01/12/18 10:00 Protonix Iv IVPUSH DAILY [facility] Sodium Bicarbonate 650 mg 01/11/18 22:00 Sodium Bicarbonate - PO TID [facility] ASSESSMENT/PLAN: Patient is a 52 y/o male with a history of reccurent abscesses, DM, CKD, asthma , HTN, NLF, chronic back pain, and CHF who is admitted for cellulitis/abscess of the lower gluteal folds. S/P day 0 I&D of abscess. #B/L glueteal cleft cellutlitis/abscess - ED: Vanc and Zosyn - Cefepime 3 days and d/c - Cindamycin 600mg (day 3) and Ceftriaxone 2 gm ( day 1) - WBC: 8.8 - ID consult, Dr. Diaz - s/p day 0 I & D by Dr. Kaur, continue wound care with packing - abscess culture strep agalactiae Group B, appropriate antibiotics changed - f/u nares culture - tylenol 650, oxycodone 5mg Q6H prn - warm compress prn - continue probiotics - long history of noncompliance and infections, most recent November 30 perianal abscess #CKD - BUN/Cr stable, BUN baseline 50, Cr baseline 3 - followed by Dr. Tong - continue Sodium Bicarb 650 mg TID - diabetic diet #CHF - continue furosemide 40 mg - atorvastain 40 mg #Anemia - normocytic, possibly 2/2 to CKD #DM - Levimir 60 units am, 20 units pm - SS as needed #HTN - continue amlodipine 5mg #DVT ppx - heparin TID PCP: Dr. Fry, Nephro: [place], try to switch abx to po for tomorrow, f/u with surgery recommendations Visit type - Emergency Visit Emergency Visit: No - New Patient This patient is new to me today: No - Critical Care Critical Care patient: No
[2018-01-11] MEDS: CEFTRIAXONE 2 GM in DEXTROSE 5%-WATER 100 ML IVPB SCH (16:48)
--- NOTE | 2018-01-11 18:36 | PN ---
Teaching Attending Note Name of Resident: Niya Atkinson ATTENDING PHYSICIAN STATEMENT I saw and evaluated the patient. I reviewed the resident's note and discussed the case with the resident. I agree with the resident's findings and plan as documented. SUBJECTIVE: No fever or chills . gluteal pain after procedure OBJECTIVE: NAD CV: RRR Lungs: CTAB Abd:soft, obese, NT, ND , NL BS Ext: no edema SKin: gluteal area with a clean surgical dressing ASSESSMENT AND PLAN: 52 y/o man with h/o DM , HTN, Asthma, HLp, CKD, chronic back pain, recurrent skin infections who presented with gluteal pain and was found to have gluteal abscess. 1- Gluteal abscess: s/p I&D today. - Cx with group B strep. - cont Abx - wound care per surgery 2- Dm : cont levemir and SSI 3- h/o CHF : cont lasix 4- CKD: stable Cr. cont to monitor 5- DVT P x
[2018-01-11] MEDS ORDERED: traMADol HCL 50 MG TABLET PO ONE (19:00)
[2018-01-11 21:37] LABS: HEMATOCRIT 30.3 % (35.4-49); HEMOGLOBIN 9.6 GM/dL (11.7-16.9); MCHC 31.7 g/dl (32.0-35.9); MEAN CELL VOLUME 82.1 fl (80-96); MEAN PLT VOLUME 8.3 fl (7.5-11.1); PLATELET COUNT 377 K/MM3 (134-434); RBC 3.69 M/mm3 (4.00-5.60); RDW 15.6 % (11.9-15.9)
[2018-01-11] MEDS: HEPARIN NA (PORCINE) 5,000 UNITS/ML 1ML VIAL SQ SCH (21:50)
[2018-01-11] MEDS: SODIUM BICARBONATE 650 MG TABLET PO SCH (21:51)
[2018-01-11 21:59] LABS: ANION GAP 11 (8-16); BLOOD UREA NITROGEN 48 mg/dL (7-18); CALCIUM 7.5 mg/dL (8.5-10.1); CHLORIDE 110 mmol/L (98-107); CO2 18 mmol/L (21-32); CREATININE 3.6 mg/dL (0.7-1.3); GLUCOSE,RANDOM 151 mg/dL (74-106); POTASSIUM 5.8 mmol/L (3.5-5.1); SODIUM 139 mmol/L (136-145)
[2018-01-11] MEDS ORDERED: ATORVASTATIN CA 40 MG TABLET (FP) PO SCH (22:00)
[2018-01-12] MEDS: CLINDAMYCIN 600MG PREMIX IVPB 600 MG/50 ML BAG IVPB SCH ×3 (03:36→14:41)
[2018-01-12] MEDS: SODIUM BICARBONATE 650 MG TABLET PO SCH ×2 (06:23→14:41)
[2018-01-12] MEDS: HEPARIN NA (PORCINE) 5,000 UNITS/ML 1ML VIAL SQ SCH ×2 (06:23→14:39)
[2018-01-12] MEDS: INSULIN SLIDING SCALE (NOVOLOG) 1 VIAL SQ SCH ×2 (06:25→11:16)
[2018-01-12] MEDS: oxyCODONE HCL 5 MG TABLET PO PRN ×2 (06:26→14:39)
[2018-01-12] MEDS ORDERED: INSULIN (NOVOLOG) ASPART 100 UNITS/ML 10ML VIAL ONE (06:52)
[2018-01-12] MEDS ORDERED: INSULIN (LEVEMIR) 100 UNITS/ML UNITS SQ SCH (07:00)
[2018-01-12 07:31] LABS: ALBUMIN 1.6 g/dl (3.4-5.0); ANION GAP 11 (8-16); BLOOD UREA NITROGEN 47 mg/dL (7-18); CALCIUM 7.7 mg/dL (8.5-10.1); CHLORIDE 112 mmol/L (98-107); CO2 19 mmol/L (21-32); CREATININE 3.7 mg/dL (0.7-1.3); GLUCOSE,RANDOM 80 mg/dL (74-106); POTASSIUM 5.1 mmol/L (3.5-5.1); SGOT/AST 8 U/L (15-37); SGPT/ALT 13 U/L (12-78); SODIUM 142 mmol/L (136-145)
[2018-01-12 07:33] LABS: ALK PHOS 105 U/L (45-117); BILIRUBIN,TOTAL 0.1 mg/dL (0.2-1.0); TOT PROT 5.8 g/dl (6.4-8.2)
[2018-01-12 08:40] VITALS: BP 150/75; PULSE 75; TEMP 98.8
[2018-01-12] MEDS ORDERED: DEXTROSE 5%-WATER 100 ML IVPB ONE (09:07)
--- NOTE | 2018-01-12 09:24 | PN ---
Progress Note, Physician History of Present Illness: patient seen and examined at bedside. no acute events overnight. patient states he is feeling much better after the I and D of the abscess yesterday. He is not in as much pain and was able to put more pressure when sleeping. he denies any CP/SOB/N/V - Current Medication List Current Medications: Active Medications Acetaminophen (Tylenol -) 650 mg PO Q6H PRN PRN Reason: FEVER Last Admin: 01/11/18 15:44 Dose: 650 mg Amlodipine Besylate (Norvasc -) 5 mg PO DAILY [facility] Aspirin (Asa -) 81 mg PO DAILY [facility] Atorvastatin Calcium (Lipitor -) 40 mg PO HS [facility] Last Admin: 01/11/18 21:51 Dose: 40 mg Furosemide (Lasix -) 40 mg PO DAILY [facility] Heparin Sodium (Porcine) (Heparin -) 5,000 unit SQ TID [facility] Last Admin: 01/12/18 06:23 Dose: 5,000 unit Clindamycin Phosphate (Cleocin 600 Mg Premix Ivpb -) 600 mg in 50 mls @ 100 mls /hr IVPB Q6H-IV [facility]; Protocol Last Admin: 01/12/18 03:36 Dose: 100 mls/hr Ceftriaxone Sodium 2 gm/ (Dextrose) 100 mls @ 200 mls/hr IVPB DAILY [facility]; Protocol Last Admin: 01/11/18 16:48 Dose: 200 mls/hr Insulin Aspart (Novolog Vial Sliding Scale -) 1 vial SQ ACHS [facility]; Protocol Last Admin: 01/12/18 06:25 Dose: Not Given Insulin Detemir (Levemir Vial) 20 units SQ HS [facility] Last Admin: 01/11/18 21:50 Dose: 20 units Insulin Detemir (Levemir Vial) 40 units SQ AM [facility] Last Admin: 01/12/18 06:23 Dose: 40 units Lactobacillus Acidophilus (Bacid -) 1 tab PO DAILY [facility] Oxycodone HCl (Roxicodone -) 5 mg PO Q6H PRN PRN Reason: PAIN LEVEL 6-10 Last Admin: 01/12/18 06:26 Dose: 5 mg Pantoprazole Sodium (Protonix Iv) 40 mg IVPUSH DAILY [facility] Sodium Bicarbonate (Sodium Bicarbonate -) 650 mg PO TID [facility] Last Admin: 01/12/18 06:23 Dose: 650 mg - Objective Vital Signs: Vital Signs Temperature 98.8 F 01/12/18 08:39 Pulse Rate 75 01/12/18 08:39 Respiratory Rate 20 01/12/18 08:39 Blood Pressure 150/75 01/12/18 08:39 O2 Sat by Pulse Oximetry (%) 99 01/11/18 21:00 Constitutional: Yes: No Distress Cardiovascular: Yes: Regular Rate and Rhythm, S1, S2 Respiratory: Yes: CTA Bilaterally Gastrointestinal: Yes: Normal Bowel Sounds, Soft. No: Tenderness Edema: Yes Edema: LLE: Trace, RLE: Trace Neurological: Yes: Alert Psychiatric: Yes: Alert Labs: CBC, BMP 01/11/18 21:20 01/12/18 06:40 INR, PTT INR 1.25 (0.82-1.09) H 01/09/18 10:45 Problem List - Problems (1) CKD (chronic kidney disease) Code(s): N18.9 - CHRONIC KIDNEY DISEASE, UNSPECIFIED Qualifiers: Chronic kidney disease stage: unspecified stage Qualified Code(s): N18.9 - Chronic kidney disease, unspecified (2) Perineal abscess Code(s): L02.215 - CUTANEOUS ABSCESS OF PERINEUM (3) Anemia in chronic kidney disease Code(s): N18.9 - CHRONIC KIDNEY DISEASE, UNSPECIFIED; D63.1 - ANEMIA IN CHRONIC KIDNEY DISEASE Assessment/Plan patient is clinically much improved -patients most recent Cr is 3.7 -repeat labs in am -c/w lasix -monitor fluid status
--- NOTE | 2018-01-12 09:36 | PN ---
Progress Note (short form) - Note Progress Note: Attending Surgeon POD #1 Feels better VSS AF wounds-open and packing changed and wounds irrigated and repacked w/ Kerlix and DSD WBC-nl OR cultures pending IMP: improving PLAN: Wound care and antibiotics. Joshua Kaur MD FACS
[2018-01-12] MEDS ORDERED: LACTOBACILLUS ACIDOPHILUS 1 TABLET PO SCH (10:00)
[2018-01-12] MEDS ORDERED: PANTOPRAZOLE SODIUM 40 MG VIAL IVPUSH SCH (10:00)
[2018-01-12] MEDS ORDERED: ASPIRIN 81 MG CHEWABLE TABLETS PO SCH (10:00)
[2018-01-12] MEDS ORDERED: FUROSEMIDE 40 MG TABLET (FP) PO SCH (10:00)
[2018-01-12] MEDS ORDERED: CEFTRIAXONE 2 GM in DEXTROSE 5%-WATER 100 ML IVPB SCH (10:00)
[2018-01-12] MEDS ORDERED: amLODIPine BESYLATE 5 MG TABLET (FP) PO SCH (10:00)
[2018-01-12] MEDS: CEFTRIAXONE 2 GM in DEXTROSE 5%-WATER 100 ML IVPB SCH (11:14)
--- NOTE | 2018-01-12 13:03 | PN ---
Teaching Attending Note Name of Resident: Ryan Eldridge ATTENDING PHYSICIAN STATEMENT I saw and evaluated the patient. I reviewed the resident's note and discussed the case with the resident. I agree with the resident's findings and plan as documented. SUBJECTIVE: No fever or chills . pain in gluteal area, well controlled with meds. OBJECTIVE: NAD CV: RRR Lungs: CTAB Abd:soft, obese, NT, ND , NL BS Ext: no edema SKin: gluteal area with a 2cm wound with packing in and surrounding induration . no discharge seen ASSESSMENT AND PLAN: 52 y/o man with h/o DM , HTN, Asthma, HLp, CKD, chronic back pain, recurrent skin infections who presented with gluteal pain and was found to have gluteal abscess. 1- Gluteal abscess: s/p I&D yesterday - wound Cx with group B strep. surgical wound cx pending - cont Abx . will d/w timing of PO Abx - wet to dry packing and dressing change BID 2- Dm : cont levemir . DC HS coverage of SSI 3- h/o CHF: cont lasix 4- CKD: Cr is close to his base line ( 2.5 -3.5) D/w dr. Tong monitor hyperkalemia cont lasix . looks euvolemic 5- DVT Px diso : depends on timing of PO abx ASSESSMENT AND PLAN:
--- NOTE | 2018-01-12 16:19 | DS ---
Physical Exam: SUBJECTIVE: Patient is a 52 y/o male with a history of reccurent abscesses, DM, CKD, asthma , HTN, HLD, chronic back pain, and CHF who presents with cellulitis in the gluteal folds. Patient reports the wound drained a lot over night. Patient receiving I & D today. OBJECTIVE: Vital Signs Period Temp Pulse Resp BP Sys/Swartz Pulse Ox Last 24 Hr 98.4 F-99.4 F 75-87 19-20 111-150/71-78 99 PHYSICAL EXAM GENERAL: The patient is awake, alert, and fully oriented, in no acute distress. EYES: PERRL, extraocular movements intact LUNGS: Breath sounds equal, clear to auscultation bilaterally HEART: Regular rate and rhythm ABDOMEN: Soft, nontender, nondistended, normoactive bowel sounds EXTREMITIES: 2+ pulses, warm, well-perfused, no edema. SKIN: bilateral swelling lower gluteal clefts, induration bilaterally, non fluctuating, tender to palpation, erythematous, no perianal abscess noted, b/l abscess packing in place LABS Laboratory Results - last 24 hr 01/11/18 01/11/18 01/11/18 16:47 21:20 21:20 WBC 9.0 RBC 3.69 L Hgb 9.6 L Hct 30.3 L MCV 82.1 MCH 26.0 MCHC 31.7 L RDW 15.6 Plt Count 377 MPV 8.3 Sodium 139 Potassium 5.8 H Chloride 110 H Carbon Dioxide 18 L Anion Gap 11 BUN 48 H Creatinine 3.6 H Creat Clearance w eGFR 18.04 POC Glucometer 118 Random Glucose 151 H Calcium 7.5 L Total Bilirubin AST ALT Alkaline Phosphatase Total Protein Albumin 01/11/18 01/12/18 01/12/18 21:49 06:22 06:40 WBC RBC Hgb Hct MCV MCH MCHC RDW Plt Count MPV Sodium 142 Potassium 5.1 Chloride 112 H Carbon Dioxide 19 L Anion Gap 11 BUN 47 H Creatinine 3.7 H Creat Clearance w eGFR 17.48 POC Glucometer 160 101 Random Glucose 80 D Calcium 7.7 L Total Bilirubin 0.1 L AST 8 L ALT 13 Alkaline Phosphatase 105 Total Protein 5.8 L Albumin 1.6 L 01/12/18 11:01 WBC RBC Hgb Hct MCV MCH MCHC RDW Plt Count MPV Sodium Potassium Chloride Carbon Dioxide Anion Gap BUN Creatinine Creat Clearance w eGFR POC Glucometer 138 Random Glucose Calcium Total Bilirubin AST ALT Alkaline Phosphatase Total Protein Albumin HOSPITAL COURSE: Date of Admission:01/09/18 Patient is a 52 y/o male with a history of recurrent abscesses, DM, CKD, asthma , HTN, HLD, chronic back pain, and CHF who presented with lower gluteal swelling. He recently was admitted for a perianal abscess. Patient presented with a fever of 101.4. White count of 12.2 In the ED he was given Vancomycin and Zosyn. Inpatient he was started on Clindamycin and Cefepime. A pelvic CT showed no discrete abscess. Patients wound began to weep and a wound culture was sent. Dr. Kaur decided preformed an incision and drainage on 01/11 as the cellulitis developed into an abscess. Wound culture grew strep agalactiae group B. His medications were continued as Clindamycin and Ceftriaxone. Patient remained afebrile with no white count. Patient will continue to take Augmentin 875 mg BID po for 7 days a week. Patient educated on changing his dressing from wet to dry two times a day. visiting nursing service will come to his house and help him change his dressing. Nursing staff will also teach a family member to help him. Patient will follow up with Dr. Kaur in one week. Patient's glucose was uncontrolled and his insulin regime was changed to Levemir 40 units in the morning and 20 units before bed. Patient was sent home with a prescription for sliding scale insulin to use as needed. Patient monitored for his CKD and his BUN/Cr remained around his baseline. Patient instructed to follow up with his oracle security consultant, Dr. Castle, as an oupatient. Date of Discharge: 01/12/18 Minutes to complete discharge: 37 Discharge Summary Reason For Visit: CELLULITIS OF PERINEUM,CHRONIC KIDNEY DISEASE Current Active Problems CKD (chronic kidney disease) (Chronic) Morbid obesity (Chronic) Condition: Improved - Instructions Diet, Activity, Other Instructions: You presented to the hospital with an infection in your lower butt. We treated the infection with antibiotics. You will continue to take Augmentin 875mg twice a day by mouth for 7 days to complete treatment of your infection. The surgeon, Dr. Kaur, preformed a incision and drainage of your abscess. You should follow up with Dr. Kaur in one week. Please clean and dress your wounds with a wet to dry dressing twice a day as per the instructions below. We have included a referral for visiting nurse services. Please call them and have them help with your dressing changes as directed in the instructions. It is very important that you try to control your sugars as best you can for your diabetes. Uncontrolled sugars can lead to more and worsening infections. Your insulin was changed to: Levemir 40 units in the morning Levemir 20 units before bed Please take your blood sugar before each meal and before bed. You will also use insulin sliding scale as needed and as directed: Sugar Level Dose of Insulin 100-150 0 units 151-200 2 units 201-250 4 units 251-300 6 units 301-350 8 units 351-400 10 units 400+ 12 units and call your doctor Please follow up with your oracle security consultant, Dr. Castle, to monitor your chronic kidney disease. Please resume your home medications as prescribed. Please follow up with your primary care physician within one week. Please return to the Emergency Department if you have worsening symptoms, or chest pain, shortness of breath, vomiting, or diarrhea. Please change your dressing according to the following instructions: Removing the Old Dressing Follow these steps to remove your dressing: Wash your hands thoroughly with soap and warm water before and after each dressing change. Put on a pair of non-sterile gloves. Carefully remove the tape. Remove the old dressing. If it is sticking to your skin, wet it with warm water to loosen it. Remove the gauze pads or packing tape from inside your wound. Put the old dressing, packing material, and your gloves in a plastic bag. Set the bag aside. Cleaning Your Wound Follow these steps to clean your wound: Put on a new pair of non-sterile gloves. Use a clean, soft washcloth to gently clean your wound with normal saline. Your wound should not bleed much when you are cleaning it. A small amount of blood is OK. Rinse your wound with water. Gently pat it dry with a clean towel. DO NOT rub it dry. In some cases, you can even rinse the wound while showering. Check the wound for increased redness, swelling, or a bad odor. Pay attention to the color and amount of drainage from your wound. Look for drainage that has become darker or thicker. After cleaning your wound, remove your gloves and put them in the plastic bag with the old dressing and gloves. Wash your hands again. Changing Your Dressing Follow these steps to put a new dressing on: Put on a new pair of non-sterile gloves. Pour saline into a clean bowl. Place gauze pads and any packing tape you will use in the bowl. Squeeze the saline from the gauze pads or packing tape until it is no longer dripping. Place the gauze pads or packing tape in your wound. Carefully fill in the wound and any spaces under the skin. Cover the wet gauze or packing tape with a large dry dressing pad. Use tape or rolled gauze to hold this dressing in place. Put all used supplies in the plastic bag. Close it securely, then put it in a second plastic bag, and close that bag securely. Put it in the trash. Wash your hands again when you are finished. - After finishing the treatment for the abscess: use Hibiclens ( over the counter ) to clean all your skin daily for 2 weeks . to help eradicate the bacteria Referrals: Johsua Kaur MD [Staff Physician] - 1 Week Missy Huerta [Primary Care Provider] - 1 Week August Castle MD [Staff Physician] - Disposition: HOME - Home Medications Comprehensive Discharge Medication List: Ambulatory Orders Acetaminophen [Tylenol .Regular Strength -] 650 mg PO Q6H PRN #30 tablet Amlodipine Besylate [Norvasc -] 5 mg PO DAILY #30 tablet 11/30/17 Atorvastatin Ca [Lipitor] 40 mg PO HS #30 tablet 11/30/17 Furosemide [Lasix -] 40 mg PO DAILY 01/09/18 Amoxicillin/Potassium Clav [Augmentin 875-125 Tablet] 1 each PO BID #14 tablet 01/12/18 Aspirin [ASA -] 81 mg PO DAILY #30 tab.chew 01/12/18 Insulin Aspart [Novolog Flexpen] See Protocol SQ ACHS #25 insuln.pen 01/12/18 Insulin Detemir [Levemir Flextouch] 60 unit SQ ASDIR #25 insuln.pen 01/12/18 This patient is new to me today: No Emergency Visit: No Critical Care patient: No - Discharge Referral Referred to [facility] No
[2018-01-12] MEDS ORDERED: INSULIN SLIDING SCALE (NOVOLOG) 1 VIAL SQ SCH (16:30)
--- NOTE | 2018-01-12 17:14 | PN ---
Teaching Attending Note Name of Resident: Vijaya Louis (Nephrology) ATTENDING PHYSICIAN STATEMENT I saw and evaluated the patient. I reviewed the resident's note and discussed the case with the resident. I agree with the resident's findings and plan as documented. Renal Pt seen and examined at bedside. He denies shortness of breath. He is awake and alert. Current Medications Generic Name Dose Route Start Last Admin Trade Name Freq PRN Reason Stop Dose Admin Acetaminophen 650 mg 01/11/18 14:13 01/11/18 15:44 Tylenol - PO 650 mg Q6H PRN Administration FEVER Amlodipine Besylate 5 mg 01/12/18 10:00 01/12/18 09:21 Norvasc - PO 5 mg DAILY MARY Administration Aspirin 81 mg 01/12/18 10:00 01/12/18 09:21 Asa - PO 81 mg DAILY MARY Administration Atorvastatin Calcium 40 mg 01/11/18 22:00 01/11/18 21:51 Lipitor - PO 40 mg HS MARY Administration Furosemide 40 mg 01/12/18 10:00 01/12/18 09:21 Lasix - PO 40 mg DAILY MARY Administration Heparin Sodium (Porcine) 5,000 unit 01/11/18 22:00 01/12/18 14:39 Heparin - SQ 5,000 unit TID MARY Administration Clindamycin Phosphate 600 mg in 50 mls @ 100 mls/hr 01/11/18 15:30 01/12/18 14:41 Cleocin 600 Mg Premix Ivpb - IVPB 100 mls/hr Q6H-IV MARY Administration Protocol Ceftriaxone Sodium 2 gm/ 100 mls @ 200 mls/hr 01/11/18 15:30 01/12/18 11:14 Dextrose IVPB 200 mls/hr DAILY MARY Administration Protocol Insulin Aspart 1 vial 01/12/18 16:30 Novolog Vial Sliding Scale - SQ TIDAC MARY Protocol Insulin Detemir 20 units 01/11/18 22:00 01/11/18 21:50 Levemir Vial SQ 20 units HS MARY Administration Insulin Detemir 40 units 01/12/18 07:00 01/12/18 06:23 Levemir Vial SQ 40 units AM MARY Administration Lactobacillus Acidophilus 1 tab 01/12/18 10:00 01/12/18 09:21 Bacid - PO 1 tab DAILY MARY Administration Oxycodone HCl 5 mg 01/11/18 14:13 01/12/18 14:39 Roxicodone - PO 5 mg Q6H PRN Administration PAIN LEVEL 6-10 Pantoprazole Sodium 40 mg 01/12/18 10:00 01/12/18 09:21 Protonix Iv IVPUSH 40 mg DAILY MARY Administration Sodium Bicarbonate 650 mg 01/11/18 22:00 01/12/18 14:41 Sodium Bicarbonate - PO 650 mg TID MARY Administration cardio s1s2 pulm clear GI obese ext plus 1 edema neuro awake and alert Impression 1. CKD 2. CHF 3. hx of DFU 4. hx of osteomyelitis 5. hx hyperkalemia 6. DM 7. HTN 8. obesity 9. anemia 10. hx of urinary obstruction/high post void residual 11. nephrotic range proteinuria 12. perineal abscess Plan - potassium improved - will need outpt follow up after discharge - abx per ID - monitor renal function - low potassium diet - wound care
== END 2018-01-12 18:10 | disposition home or self-care (01) | DRG 383 ==
LOC: JER 01:18 → JERBED 04:24 → J8W 13:52
PROVIDERS: ADMIT Internal Medicine; ATTEND Internal Medicine
PROC: 0J990ZX Drainage of Buttock Subcutaneous Tissue and Fascia, Open Approach, Diagnostic (ICD-10-PCS; principal; 2018-01-11 12:00)
DX: L02.31 Cutaneous abscess of buttock (principal); J45.909 Unspecified asthma, uncomplicated; E78.5 Hyperlipidemia, unspecified; M54.9 Dorsalgia, unspecified; R80.9 Proteinuria, unspecified; E66.01 Morbid (severe) obesity due to excess calories; E87.5 Hyperkalemia; K61.0 Anal abscess; Z68.42 Body mass index [BMI] 45.0-49.9, adult; I13.2 Hypertensive heart and chronic kidney disease with heart failure and with stage 5 chronic kidney disease, or end stage renal disease; E11.22 Type 2 diabetes mellitus with diabetic chronic kidney disease; I50.9 Heart failure, unspecified; D63.1 Anemia in chronic kidney disease; N18.4 Chronic kidney disease, stage 4 (severe); E88.09 Other disorders of plasma-protein metabolism, not elsewhere classified; E11.21 Type 2 diabetes mellitus with diabetic nephropathy; Z79.4 Long term (current) use of insulin
CPT/HCPCS: 36415; 72192-TC; 80048; 80053; 81003; 81015; 82272; 82728; 82803; 82962; 83540; 83550; 83605; 83735; 84100; 84484; 85025; 85027; 85044; 85610; 85730; 87040; 87070; 87081; 87086; 87186; 87205; 93005; 93010; 94760; 99284-25; G0480; J0131; J1644; J7030

== ENCOUNTER 2018-08-24 19:10 | Inpatient (IN) | payer OTHER ==
--- NOTE | 2018-08-24 19:50 | PDOC ---
Rapid Medical Evaluation Chief Complaint: Abscess Boil Medical Evaluation: Allergies Allergy/AdvReac Type Severity Reaction Status Date / Time No Known Allergies Allergy Verified 01/09/18 01:46 08/24/18 19:47 I have performed a brief in-person evaluation of this patient. The patient presents with a chief complaint of: abscess to left buttock on and off x 1 month, some drainage- Pertinent physical exam findings: had eruption of 2 different sites- finished course of Amox with no resolve I have ordered the following: CbC, CMP, Fingerstick, Wound culture The patient will proceed to the ED for further evaluation. 08/24/18 19:51 Discharge Disposition - Diagnosis Abscess - Referrals Referrals: August Castle MD [Primary Care Provider] - - Patient Instructions - Post Discharge Activity
--- NOTE | 2018-08-24 20:50 | PDOC ---
Attending Attestation - HPI HPI: 08/24/18 22:21 The patient is a 52 year old male with a PMH of DM who presents with multiple buttock abscess 1 about a month. Patient uses 90 units of lantus at night and 30 units of humalog with meals. Patient has not used insulin today. Patient denies fever, chills, nausea, or vomiting. Allergies: NKDA Social Hx: No reported alcohol, drug or cigarette use. - Physicial Exam PE: 08/24/18 22:27 ADULT PHYSICAL EXAM Constitutional: Awake, alert, oriented. No acute distress. (+) Obese. Head: Normocephalic. Atraumatic Eyes: PERRL. EOMI. Conjunctivae are not pale. ENT: Mucous membranes are moist and intact. Posterior pharynx without exudates or erythema. Uvula midline. Neck: Supple. Full ROM. No lymphadenopathy. Cardiovascular: Regular rate. Regular rhythm. S1, S2 regular. Distal pulses are 2+ and symmetric. Pulmonary/Chest: (+) Tachypneic. Clear to auscultation bilaterally. No wheezing , rales or rhonchi. Abdominal: Obese but soft. There is no tenderness. No rebound, guarding or rigidity. No organomegaly. No palpable masses. Good bowel sounds. Back: No CVA tenderness. Musculoskeletal: No edema. No cyanosis. No clubbing. Full range of motion in all extremities. Nocalf tenderness. Radial/pedal pulses are intact and 2+ bilaterally Skin: (+) A 6x8cm abscess to the lateral aspect of the left buttock, indurated, hot to touch, erythematous, purulent drainage and two other small abscesses proximally and distally. No perianal abscesses. (+) Right buttock with small, indurated abscess, but no drainage. Neurological: Alert and oriented to person, place, and time. Cranial nerves II -XII are grossly intact. Normal speech. Strength is grossly symmetric. No sensory deficits. Psychiatric: Good eye contact. Normal interaction, affect and behavior. <Lise Meredith - Last Filed: 08/24/18 22:28> - Resident Resident Name: Pari Lim - ED Attending Attestation I have performed the following: I have examined & evaluated the patient, The case was reviewed & discussed with the resident, I agree w/resident's findings & plan, Exceptions are as noted - Medical Decision Making 08/24/18 20:50 I, Dr. Kady Acosta, DO, attest that this document has been prepared under my direction and personally reviewed by me in its entirety. I further attest, that it accurately reflects all work, treatment, procedures and medical decision -making performed by me. 08/24/18 21:48 a/p: 52yo male with multiple buttock abscess -pt with uncontrolled dm -uses lantus 90 units at night, and 30units humalog with meals -did not use insulin today -pt with hx of mrsa wounds -L buttock and lateral hip with 3 abscess/indurated, purulent drainage from largest -R lateral buttock with small area on induration and ttp- no drainage -will send labs, will start ivf hydration, insulin for glu >600 on finger stick -will need ct pelvis with iv contrast -will need abx -will need inpt admission 08/24/18 22:16 pt with arf ivf hydration ordered glucose 855 on labs pt will need admission 08/25/18 00:28 resident discussed the case with neyamr who accepts the patient to service 08/25/18 00:28 baseline cr at 2.5 <Kady Acosta - Last Filed: 08/25/18 00:28>
[2018-08-24] MEDS ORDERED: ACETAMINOPHEN 1000 MG/100 ML VIAL (NON FORMULARY) IVPB ONE (21:00)
[2018-08-24] MEDS ORDERED: SODIUM CHLORIDE 1,000 ML IV STA (21:00)
[2018-08-24] MEDS ORDERED: INSULIN REGULAR HUMAN 100 UNITS/ML *VIAL SQ ONE (21:00)
[2018-08-24] MEDS ORDERED: VANCOMYCIN 1,500 MG in DEXTROSE 5%-WATER - 250 ML IVPB ONE (21:03)
[2018-08-24] MEDS ORDERED: PIPERACILLIN/TAZOB 4.5 GM 4.5 GM in DEXTROSE 5%-WATER 100 ML IVPB ONE (21:07)
[2018-08-24 21:09] LABS: BASO % 1.1 % (0-2.0); EOS % 4.7 % (0-4.5); HEMATOCRIT 31.9 % (35.4-49); LYMPH % 20.6 % (8-40); MCH 26.5 pg (25.7-33.7); MCHC 31.3 g/dl (32.0-35.9); MEAN CELL VOLUME 84.6 fl (80-96); MONO % 7.5 % (3.8-10.2); NEUT % 66.1 % (42.8-82.8); PLATELET COUNT 304 K/MM3 (134-434); RBC 3.77 M/mm3 (4.00-5.60); RDW 16.8 % (11.9-15.9); WHITE BLOOD COUNT 7.6 K/mm3 (4.0-10.0)
--- NOTE | 2018-08-24 21:33 | PDOC ---
History of Present Illness - General Chief Complaint: Abscess Boil Stated Complaint: ABSCESS Time Seen by Provider: 08/24/18 20:18 History Source: Patient Exam Limitations: No Limitations - History of Present Illness Initial Comments: Pt is a 52 yo M, with IDDM (non-compliant with hx of draining ulcers), HTN, CHF , CKD (no dialysis in the past), who is presenting with multiple abscesses on his buttocks b/l. Pt states he has had a draining abscess over his L buttock x2 weeks, and has been cleaning it and applying bandages himself. He has also felt other "pimples forming" on his buttocks and R thigh. He has not followed-up with wound care (Dr. Kitchen) for at least a few months. Pts BG is regularly 300- 400 at home, and he did not take his insulin this AM. Pt also endorses regular urinary frequency and polydipsia. Pt has been to the OR at [facility] for similar presentation and wound debridement, and has tested positive for MRSA from prior wound cultures. Pt denies any recent fevers/chills, headache, vision changes, syncope, chest pain, palpitations, SOB, nausea/vomiting, abdominal pain, urinary symptoms, diarrhea/constipation, or leg swelling. Social: Pt denies any cigarette, alcohol, or drug use. Pt denies any recent travel or sick contacts. Surgical: wound debridement. Family: no relevant history. 08/24/18 22:06 Past History - Travel Traveled outside of the country in the last 30 days: No Close contact w/someone who was outside of country & ill: No - Past Medical History Allergies/Adverse Reactions: Allergies Allergy/AdvReac Type Severity Reaction Status Date / Time No Known Allergies Allergy Verified 08/24/18 19:49 Home Medications: Ambulatory Orders Acetaminophen [Tylenol .Regular Strength -] 650 mg PO Q6H PRN #30 tablet Amlodipine Besylate [Norvasc -] 5 mg PO DAILY #30 tablet 11/30/17 Atorvastatin Ca [Lipitor] 40 mg PO HS #30 tablet 11/30/17 Furosemide [Lasix -] 40 mg PO DAILY 01/09/18 Amoxicillin/Potassium Clav [Augmentin 875-125 Tablet] 1 each PO BID #14 tablet 01/12/18 Aspirin [ASA -] 81 mg PO DAILY #30 tab.chew 01/12/18 Insulin Aspart [Novolog Flexpen] See Protocol SQ ACHS #25 insuln.pen 01/12/18 Insulin Detemir [Levemir Flextouch] 60 unit SQ ASDIR #25 insuln.pen 01/12/18 Anemia: No Asthma: Yes Cancer: No Cardiac Disorders: No CVA: No COPD: No CHF: Yes Dementia: No Diabetes: Yes (IDDM/ NEUROPATHY OF ASHLEY FEET) GI Disorders: No Disorders: Yes (ACUTE RENAL INSUFFICIENCY) HTN: Yes Hypercholesterolemia: Yes Liver Disease: No Seizures: No Thyroid Disease: No - Surgical History Abdominal Surgery: No Appendectomy: No Cardiac Surgery: No Cholecystectomy: No Lung Surgery: No Neurologic Surgery: No Orthopedic Surgery: Yes (R knee surgery) - Immunization History Immunization Up to Date: No - Suicide/Smoking/Psychosocial Hx Smoking Status: No Smoking History: Never smoked Have you smoked in the past 12 months: No Number of Cigarettes Smoked Daily: 0 Cigars Per Day: 0 Information on smoking cessation initiated: No Hx Alcohol Use: No Drug/Substance Use Hx: No Substance Use Type: None Hx Substance Use Treatment: No Review of Systems - Review of Systems Able to Perform ROS?: Yes Is the patient limited [place] proficient: No Constitutional: Yes: Weight Stable. No: Chills, Diaphoresis, Fever, Loss of Appetite, Malaise, Weakness HEENTM: No: Blurred Vision, Double Vision, Nose Congestion, Throat Pain, Throat Swelling, Difficulty Swallowing Respiratory: No: Cough, Shortness of Breath Cardiac (ROS): No: Chest Pain, Edema, Irregular Heart Rate, Lightheadedness, Palpitations, Syncope, Chest Tightness ABD/GI: No: Constipated, Diarrhea, Nausea, Poor Appetite, Poor Fluid Intake, Vomiting : No: Burning, Dysuria, Pain, Urgency Musculoskeletal: No: Back Pain, Joint Pain, Muscle Pain, Muscle Weakness Integumentary: Yes: See HPI, Lesions. No: Rash Neurological: No: Headache, Numbness, Paresthesia, Weakness, Unsteady Gait, Dizziness Psychiatric: No: Change in Appetite Endocrine: Yes: Increased Thirst, Increased Urine. No: Flushing, Unexplained Weight Gain, Change in Weight Hematologic/Lymphatic: Yes: Anemia. No: Blood Clots, Easy Bleeding, Easy Bruising All Other Systems: Reviewed and Negative *Physical Exam - Vital Signs Last Vital Signs Temp Pulse Resp BP Pulse Ox 98.5 F 89 16 153/84 100 08/24/18 19:47 03 19:47 08/24/18 19:47 08/24/18 19:47 08/24/18 19:47 - Physical Exam Comments: Vitals stable, pt afebrile. Pt appears uncomfortable while sitting, morbidly obese body habitus. PE showed pt alert and oriented. sr. manager marketing generally intact, muscular strength and sensation intact. Eyes PERRLA, EOMI. Oropharynx without erythema or exudates, no LAD b/l. No nasal congestion, hearing intact. Clear heart sounds, S1/S2, no JVD, or heart murmur. B/l pedal edema, non-pitting. Clear lung sounds, no respiratory distress, wheezes, crackles, or accessory muscle use. No abdominal or CVA tenderness to palpation, no rebound, no guarding. Abdomen soft, non-distended, and with normoactive bowel sounds. Multiple large 5-6 cm abscesses with induration present over L buttocks and lateral R thigh, one abscess on L buttocks is an open ulcer, draining purulent fluid (stage 2-3). No obvious involvement of perianal area or draining fistulas noted. 08/24/18 22:00 Moderate Sedation - Procedure Monitoring Vital Signs: Procedure Monitoring Vital Signs Temperature 98.5 F 08/24/18 19:47 Pulse Rate 89 08/24/18 19:47 Respiratory Rate 16 08/24/18 19:47 Blood Pressure 153/84 08/24/18 19:47 O2 Sat by Pulse Oximetry (%) 100 08/24/18 19:47 ED Treatment Course - LABORATORY CBC & Chemistry Diagram: 08/24/18 20:00 08/24/18 20:00 - ADDITIONAL ORDERS Additional order review: Laboratory Results 08/24/18 20:28 POC Glucometer > 600 08/24/18 20:28 POC Glucometer > 600 Medical Decision Making - Medical Decision Making Pt was seen at bedside, also will be seen by attending Dr. Acosta. Pt presenting with multiple abscesses on his buttocks b/l. Pt states he has had a draining abscess over his L buttock x2 weeks, and has been cleaning it and applying bandages himself. He has also felt other "pimples forming" on his buttocks and R thigh. He has not followed-up with wound care (Dr. Kitchen) for at least a few months. Pts BG is regularly 300-400 at home, and he did not take his insulin this AM. Pt also endorses regular urinary frequency and polydipsia. Pt has been to the OR at [facility] for similar presentation and wound debridement, and has tested positive for MRSA from prior wound cultures. Pt denies any recent fevers/chills, headache, vision changes, syncope, chest pain, palpitations, SOB, nausea/vomiting, abdominal pain, urinary symptoms, diarrhea/ constipation, or leg swelling. Bedside BG was >600. Vitals stable, pt afebrile. Pt appears uncomfortable while sitting, morbidly obese body habitus. PE showed pt alert and oriented. sr. manager marketing generally intact, muscular strength and sensation intact. Eyes PERRLA, EOMI. Oropharynx without erythema or exudates, no LAD b/l. No nasal congestion, hearing intact. Clear heart sounds, S1/S2, no JVD, or heart murmur. B/l pedal edema, non-pitting. Clear lung sounds, no respiratory distress, wheezes, crackles, or accessory muscle use. No abdominal or CVA tenderness to palpation, no rebound, no guarding. Abdomen soft, non-distended, and with normoactive bowel sounds. Multiple large 5-6 cm abscesses with induration present over L buttocks and lateral R thigh, one abscess on L buttocks is an open ulcer, draining purulent fluid (stage 2-3). No obvious involvement of perianal area or draining fistulas noted. Considering superficial abscess vs deep tissue abscess/fistula vs osteomyelitis Ordered work-up including CBC, CMP, acetone, VBG, ECG, blood cultures, UA, urine cultures. Will obtain CT scan with or without contrast depending on creatinine level to determine depth of infection. Provided 1 L IV NS, 1 g ofirmev, 4 mg morphine, 6 units SQ insulin, 1.5 g vanc, 4.5 g zosyn for improvement of hyperglycemia and antibiotic coverage.. Will continue to reassess pt and monitor for symptomatic improvement. 08/24/18 21:16 08/24/18 21:58 ECG: NSR, intervals WNL. Incomplete RBBB, TWIs in I and aVL. No significant changes from prior ECG. CBC: WNL for pt, baseline anemia. CMP: Na 123 (corrected 135s), K 6.3 (hemolyzed, will re-send CMP), BUN/Cr 42/ 3.5 (baseline Cr ~2.5), glucose 855 Pt was admitted to hospitalist team. Receiving fluids and we will reassess BG to determine further interventions. Sent repeat CMP to lab, VBG, lactic acid, UA, urine culture -- they have not been processed yet. Lab called to post results. 08/25/18 00:23 Repeat BGM >600 -- providing 8 units IV insulin, 1 L IV LR 08/25/18 00:41 Will continue to reassess BGM, pt baseline around 300-400 at home. Hospitalist team has seen pt at bedside. Pending admission upstairs. 08/25/18 00:49 *DC/Admit/Observation/Transfer Diagnosis at time of Disposition: Abscess, Morbid obesity, Acute kidney injury superimposed on CKD CHF (congestive heart failure) Qualifiers: Qualified Code(s): I50.9 - Heart failure, unspecified CKD (chronic kidney disease) Qualifiers: Chronic kidney disease stage: unspecified stage Qualified Code(s): N18.9 - Chronic kidney disease, unspecified - Discharge Dispostion Condition at time of disposition: Stable Decision to Admit order: Yes - Referrals - Patient Instructions - Post Discharge Activity
[2018-08-24] MEDS ORDERED: morphine CARPU-JECT 4 MG/1 ML DISP.SYRIN IVPUSH ONE (21:46)
[2018-08-24 22:07] LABS: ALK PHOS 173 U/L (45-117); ANION GAP 10 MMOL/L (8-16); BILIRUBIN,TOTAL 0.3 mg/dL (0.2-1); BLOOD UREA NITROGEN 42 mg/dL (7-18); CALCIUM 7.6 mg/dL (8.5-10.1); CHLORIDE 93 mmol/L (98-107); CO2 20 mmol/L (21-32); CREATININE 3.5 mg/dL (0.55-1.3); SGOT/AST 28 U/L (15-37); SGPT/ALT 13 U/L (13-61); SODIUM 123 mmol/L (136-145); TOT PROT 6.7 g/dl (6.4-8.2)
[2018-08-24 22:17] LABS: GLUCOSE,RANDOM 855 mg/dL (74-106); POTASSIUM 6.3 mmol/L (3.5-5.1)
[2018-08-24] MEDS ORDERED: morphine SULFATE 4 MG/ML VIAL ONE (22:19)
[2018-08-24] MEDS ORDERED: PIPERACILLIN/TAZOB 4.5 GM 4.5 GM/100 ML BAG IVPB ONE (22:20)
[2018-08-24] MEDS ORDERED: INSULIN REGULAR HUMAN 100 UNITS/ML *VIAL ONE (22:20)
[2018-08-24] MEDS ORDERED: ACETAMINOPHEN INJECTION 100 ML IVPB ONE (22:43)
[2018-08-24] MEDS ORDERED: VANCOMYCIN HCL 1,500 MG/500 ML BAG IVPB ONE (22:45)
--- NOTE | 2018-08-24 23:49 | PN ---
Teaching Attending Note Name of Resident: Radha Gaytan ATTENDING PHYSICIAN STATEMENT I saw and evaluated the patient. I reviewed the resident's note and discussed the case with the resident. I agree with the resident's findings and plan as documented. SUBJECTIVE: Patient seen and examined; please refer to resident note for further historical information. Gemini, this is a 52 year old male presenting to the ER with 2 abscesses on his gluteal area that have been present >1 week; he has been seen here in the past for similar issues by Dr. Kaur and Dr. Diaz and grew out GBS strep 11/2017 and again 12/2017. Tolerated surgical drainage well. Similar to his last presentation. Admits to recent noncompliance with his insulin and glucose >800 in the ER (hydrated and given insulin) with no +AG and normal mentation. Noted to be hyperkalemic and slight pseudohyponatremia. 10 sys ROS done and negative aside from HPI PMH, PSH, Family hx, Social hx reviewed Medication list reviewed; pending reconciliation OBJECTIVE: VS, labs, imaging reviewed NAD, AAO, resting in bed NC AT EOMI PERRLA RRR s1/2 no mgr Lungs CTAB, w/ sym exp NT ND +BS Gluteal area with 2 (? 3 but would be smaller) quarter to half-dollar sized areas of fluctuance with surrounding rubar and induration; ~2x2cm opening on the larger of the 2 draining purulent material (I have asked for this to be sent for culture) CN2-12 wnl, no fnd Normal mood, appropriate behavior Old micro reviewed; gluteal cx with shetty sn GB strep ASSESSMENT AND PLAN: Patient presents with gluteal abscess and cellulitis and uncontrolled hypoglycemia with a metabolic acidosis but no +AG. He is also slightly hyperkalemic with hypoNa (likely pseudo) noted. Bringing him to the floor with surgical consultation. 1) Abscess/Cellulitis -Given location and uncontrolled DM at risk for resistant organisms and potentially anaerobes. Will place him on vancomycin and zosyn and followup blood and wound cultures. ID will have to be consulted as well -Surgery has been consulted for likely drainage (seen by Dr. Kaur for abscess in the past); will defer further imaging, etc. to their service. -Negative lactate, no septic 2) Uncontrolled DM with hyperglycemia -No AG+ so cannot call DKA; he admits to skipping his insulin recently and has a largely elevated A1c in the past (rechecking). Given SQ initially with fluids which took him from ~800 to ~600. He is remarkably asymptomatic with this. Hydrating with a second liter and giving 10 of IV insulin stat and rechecking. Will leave on NS@[address] on SSI and continue his home lantus (can give HS tomorrow given potential for procedure; try to discuss with surgery regarding AM dosing with potential time as was split 40/40 BID levemir) 3) Hyponatremia -Improving; likely psudo due to the largely elevated glucose. If persists despite correction of glucose would further investigate and consider nephrology consult. 4) HyperK -Impproving, no EKG changes. Repeat BMP in the AM. Has had documented issues with hyperkalemia in the past. Placing on tele overnight and if resolved can likely DC in the AM. 5) CKD IV -Cr aproximately where it was his last admission; needs close followup and better control of DM or he will end up with end organ failure. Trend BMP and UOP and followup with his OP primary education professor. 6) Hypoalbuminemia with Nephrotic-range proteinuria -This is a known history and he has seen nephrology for this in the past. -Check prealbumin 7) Anemia -Hb at baseline; trend CBC 8) Obesity -Bed Spring Maker prior to DC 9) Hx Urinary Obstruction/High PVR -Documented in hx; noted. Monitor for good outputs 10) Hx Osteomyelitis -Hx noted 11) Mild Metabolic acidosis -CO2 normalized on repeat BMP; continue hydration overnight 12) Elevated Alk phos -Checking ggt; was normal for quite some time only with transient elevation 2012. If ggt elevated can check RUQ us
[2018-08-25] MEDS ORDERED: INSULIN REGULAR HUMAN 100 UNITS/ML *VIAL IVPUSH ONE ×2 (00:39→02:50)
[2018-08-25] MEDS ORDERED: LACTATED RINGERS SOLUTION 1000 ML INFUS.BAG IV STA (00:40)
[2018-08-25] MEDS ORDERED: INSULIN REGULAR HUMAN 100 UNITS/ML *VIAL ONE ×2 (00:44→07:07)
[2018-08-25 01:01] LABS: VENOUS PC02 44.7 mmHg (38-52); VENOUS PO2 32.8 mmHg (28-48)
[2018-08-25 01:10] LABS: URINE APPEARANCE CLEAR; URINE BILIRUBIN NEGATIVE (<2.0 mg/dL); URINE COLOR STRAW; URINE GLUCOSE (UA) 3+ (NEGATIVE); URINE KETONE NEGATIVE (NEGATIVE); URINE LEUK ESTERASE NEGATIVE (NEGATIVE); URINE NITRITE NEGATIVE (NEGATIVE); URINE PROTEIN 3+ (NEGATIVE); URINE UROBILINOGEN NEGATIVE mg/dL (0.2-1.0)
[2018-08-25 01:13] LABS: VENOUS PH 7.24 (7.32-7.42)
[2018-08-25 02:04] LABS: EPI CELLS RARE /HPF (FEW); URINE HYALINE CAST 1 /lpf
[2018-08-25 02:43] LABS: ALBUMIN 1.6 g/dl (3.4-5.0); ALK PHOS 143 U/L (45-117); ANION GAP 7 MMOL/L (8-16); BILIRUBIN,TOTAL 0.2 mg/dL (0.2-1); BLOOD UREA NITROGEN 36 mg/dL (7-18); CHLORIDE 98 mmol/L (98-107); CO2 21 mmol/L (21-32); CREATININE 3.2 mg/dL (0.55-1.3); POTASSIUM 5.5 mmol/L (3.5-5.1); SGOT/AST 7 U/L (15-37); SGPT/ALT 12 U/L (13-61); SODIUM 125 mmol/L (136-145); TOT PROT 5.3 g/dl (6.4-8.2)
[2018-08-25 02:58] LABS: GLUCOSE,RANDOM 727 mg/dL (74-106)
[2018-08-25 02:59] LABS: CALCIUM 6.7 mg/dL (8.5-10.1)
--- NOTE | 2018-08-25 03:23 | HP ---
CHIEF COMPLAINT:left buttock abscess PCP:Dr. Castle HISTORY OF PRESENT ILLNESS: Patient is a 52 year old male with IDDM (noncompliant), HTN, diastolic CHF, and CKD, presents to the ED due to worsening left buttock abscess in the last month. Patient reported he has been having multiple wounds in his buttocks in the last year that comes and goes. It would usually start as a pimple and later on would be a draining ulcer. During his last admission in December 2017, he had a draining ulcer in the perianal area, where he underwent I&D. The wound was positive for Strep agalactiae. He was treated with Clindamycin and Cefepime and was sent home on Augmentin. Since then, patient would have continuous episodes of having draining ulcers. He has had 2 episodes of these buttock wounds where he took Amoxicillin for 2 weeks. The second time he took Amoxicillin was a month ago which he reported "healed whatever new pimples were forming". With regards to his current left buttock abscess, patient reported it had been present for a few months, did not get better with the Amoxicillin, and he would just clean and pack it with gauze. Due to persistence of the draining ulcer, patient came to the ED. He denies any fever, chills, headache, dizziness, nausea , vomiting, chest pain, SOB, palpitations, abdominal pain, diarrhea, urinary symptoms. Of note, patient also has chronic left toe osteomyelitis (MRSA positive), which he follows up (not compliant) with Dr. Kitchen at the wound clinic. Surgery was offered but patient refused. Patient admits to also be noncompliant with his insulin. He says he is prescribed Lantus 40mg BID, and Humalog 40mg with meals. At times, he would take just Lantus 80mg in the morning, with no Humalog. His usual BGM at home is 300-400. ER course was notable for: (1)H/H 10/31.9, Na 123, K 6.3, BUN/Cr 42/3.5, Glu 855 (2)Insulin 6units sq and 8units IV (3)IV Vanc/Zosyn given Recent Travel:denies PAST MEDICAL HISTORY: IDDM (noncompliant) HTN diastolic CHF CKD PAST SURGICAL HISTORY: wound debridement Social History: Smoking:denies Alcohol:denies Drugs: denies Family History: Allergies No Known Allergies Allergy (Verified 08/24/18 19:49) HOME MEDICATIONS: Home Medications Medication Instructions Recorded Acetaminophen [Tylenol .Regular 650 mg PO Q6H PRN #30 tablet 11/30/17 Strength -] Amlodipine Besylate [Norvasc -] 5 mg PO DAILY #30 tablet 11/30/17 Atorvastatin Ca [Lipitor] 40 mg PO HS #30 tablet 11/30/17 Furosemide [Lasix -] 40 mg PO DAILY 01/09/18 Amoxicillin/Potassium Clav 1 each PO BID #14 tablet 01/12/18 [Augmentin 875-125 Tablet] Aspirin [ASA -] 81 mg PO DAILY #30 tab.chew 01/12/18 Insulin Aspart [Novolog Flexpen] See Protocol SQ ACHS #25 insuln.pen 01/12/18 Insulin Detemir [Levemir Flextouch] 60 unit SQ ASDIR #25 insuln.pen 01/12/18 REVIEW OF SYSTEMS CONSTITUTIONAL: Absent: fever, chills, diaphoresis, generalized weakness, malaise, loss of appetite, weight change HEENT: Absent: rhinorrhea, nasal congestion, throat pain, throat swelling, difficulty swallowing, mouth swelling, ear pain, eye pain, visual changes CARDIOVASCULAR: Absent: chest pain, syncope, palpitations, irregular heart rate, lightheadedness , peripheral edema RESPIRATORY: Absent: cough, shortness of breath, dyspnea with exertion, orthopnea, wheezing, stridor, hemoptysis GASTROINTESTINAL: Absent: abdominal pain, abdominal distension, nausea, vomiting, diarrhea, constipation, melena, hematochezia GENITOURINARY: Absent: dysuria, frequency, urgency, hesitancy, hematuria, flank pain, genital pain MUSCULOSKELETAL: Absent: myalgia, arthralgia, joint swelling, back pain, neck pain SKIN: left buttock abscess Absent: rash, itching, pallor HEMATOLOGIC/IMMUNOLOGIC: Absent: easy bleeding, easy bruising, lymphadenopathy, frequent infections ENDOCRINE: Absent: unexplained weight gain, unexplained weight loss, heat intolerance, cold intolerance NEUROLOGIC: Absent: headache, focal weakness or paresthesias, dizziness, unsteady gait, seizure, mental status changes, bladder or bowel incontinence PSYCHIATRIC: Absent: anxiety, depression, suicidal or homicidal ideation, hallucinations. PHYSICAL EXAMINATION Vital Signs - 24 hr 08/24/18 19:47 Temperature 98.5 F Pulse Rate 89 Respiratory 16 Rate Blood Pressure 153/84 O2 Sat by Pulse 100 Oximetry (%) GENERAL: Awake, alert, and fully oriented, in no acute distress. HEAD: Normal with no signs of trauma. EYES:PERRLA, EOMI, sclera anicteric, conjunctiva clear. EARS, NOSE, THROAT: Ears normal, oropharynx clear without exudates. Dry mucous membranes. NECK: Normal range of motion, supple without lymphadenopathy, JVD, or masses. LUNGS: Breath sounds equal, clear to auscultation bilaterally. HEART: Regular rate and rhythm, normal S1 and S2 without murmur, rub or gallop. ABDOMEN: Soft, obese, nontender, not distended, normoactive bowel sounds. MUSCULOSKELETAL: Normal range of motion at all joints. No CVA tenderness. UPPER EXTREMITIES: 2+ pulses, warm, well-perfused. No cyanosis. No clubbing. No peripheral edema. LOWER EXTREMITIES: 2+ pulses, warm, well-perfused. + multiple scars/scab wounds bilateral legs. Trace pitting edema. BACK: +1.5x1.5cm draining stage 2-3 ulcer, with surrounding tenderness, warmth and erythema on the left gluteal area, +non-draining abscess with tenderness, warmth and erythema on the left gluteal area. NEUROLOGICAL: Cranial nerves II-XII intact. Motor strength 5/5. Normal speech. Normal gait. PSYCHIATRIC: Cooperative. Good eye contact. Appropriate mood and affect. SKIN: Warm, dry, normal turgor. Laboratory Results - last 24 hr 08/24/18 08/24/18 08/24/18 20:00 20:00 20:28 WBC 7.6 RBC 3.77 L Hgb 10.0 L Hct 31.9 L MCV 84.6 MCH 26.5 MCHC 31.3 L RDW 16.8 H Plt Count 304 MPV 9.0 Absolute Neuts (auto) 5.0 Neutrophils % 66.1 Lymphocytes % 20.6 D Monocytes % 7.5 Eosinophils % 4.7 H D Basophils % 1.1 D Nucleated RBC % 0 VBG pH POC VBG pCO2 POC VBG pO2 VBG HCO3 VBG Base Excess Sodium 123 L Potassium 6.3 H* Chloride 93 L Carbon Dioxide 20 L Anion Gap 10 BUN 42 H Creatinine 3.5 H Creat Clearance w eGFR 18.63 POC Glucometer > 600 Random Glucose 855 H* Calcium 7.6 L Total Bilirubin 0.3 AST 28 ALT 13 Alkaline Phosphatase 173 H Total Protein 6.7 Albumin 2.0 L Urine Color Urine Appearance Urine pH Ur Specific Harvey Urine Protein Urine Glucose (UA) Urine Ketones Urine Blood Urine Nitrite Urine Bilirubin Urine Urobilinogen Ur Leukocyte Esterase Urine WBC (Auto) Urine RBC (Auto) Ur Epithelial Cells Hyaline Casts 08/25/18 08/25/18 08/25/18 00:05 00:05 00:37 WBC RBC Hgb Hct MCV MCH MCHC RDW Plt Count MPV Absolute Neuts (auto) Neutrophils % Lymphocytes % Monocytes % Eosinophils % Basophils % Nucleated RBC % VBG pH 7.24 L* POC VBG pCO2 44.7 POC VBG pO2 32.8 VBG HCO3 18.6 L* VBG Base Excess -7.7 L Sodium Potassium Chloride Carbon Dioxide Anion Gap BUN Creatinine Creat Clearance w eGFR POC Glucometer > 600 Random Glucose Calcium Total Bilirubin AST ALT Alkaline Phosphatase Total Protein Albumin Urine Color Straw Urine Appearance Clear Urine pH 6.0 Ur Specific Harvey 1.018 Urine Protein 3+ H Urine Glucose (UA) 3+ H Urine Ketones Negative Urine Blood Negative Urine Nitrite Negative Urine Bilirubin Negative Urine Urobilinogen Negative Ur Leukocyte Esterase Negative Urine WBC (Auto) 5 Urine RBC (Auto) <1 Ur Epithelial Cells Rare Hyaline Casts 1 ASSESSMENT/PLAN: Patient is a 52 year old male with IDDM (noncompliant), HTN, diastolic CHF, and CKD, presents to the ED due to worsening left buttock abscess in the last month. #Nonhealing ulcer, left gluteal area -Vanc/zosyn given at the ED -Will continue Vanc 1.5gm daily and Zosyn 3.375 q6h (renally dosed) -Blood cultures, wound culture -Lactic acid wnl -Gentle hydration -Wound care -ID (Dr. Diaz) consulted -Vascular surgery (Dr. Kitchen) consulted #IDDM: uncontrolled -Glu 855 --> 727 -anion gap closed, lactic acid wnl -Insulin 6 units sq, 18 units IV given at the ED -BGM q2h -Insulin sliding scale implemented -will restart Levemir 40units sq bid -HypoNa 125, corrected Na 135 #Hyperkalemia -K 6.3 --> 5.5 -Insulin 6 units sq, 18 units IV given at the ED -Iv NS -EKG: NSR, with T wave changes seen on previous EKG -will continue to monitor bmp #JAC on CKD -BUN/Cr 36/3.2 (baseline 3-3.5) -Follows up with Dr. Castle -Avoid nephrotoxic agents such as aminoglycosides, contrast agents #Diastolic CHF -On home Lasix 40mg daily -Patient reported he only takes the medication when he has leg swelling, has not been taking it recently -Echo (2017): EF 53%, mild concentric LVH, Moderator band in RV, LA moderately dilated, RA mildly dilated. Mild MR, Moderate TR. RV systolic pressure elevated 50-60mmHg. Severe pulmonary HTN. Mild aortic dilatation. #HTN -Continue home Amlodipine 5mg daily -monitor BP #FEN -IV NS @100cc/hr -Hyper K -Routine bmp monitoring -Diabetic/sodium controlled diet #Prophylaxis -Heparin 5000units sq tid #Disposition -full code -admit to tele Visit type - Emergency Visit Emergency Visit: Yes ED Registration Date: 08/24/18 Care time: The patient presented to the Emergency Department on the above date and was hospitalized for further evaluation of their emergent condition. - New Patient This patient is new to me today: Yes Date on this admission: 08/28/18 - Critical Care Critical Care patient: No
[2018-08-25] MEDS ORDERED: INSULIN (LEVEMIR) 100 UNITS/ML UNITS SQ ONE ×2 (03:34→07:07)
[2018-08-25] MEDS: SODIUM CHLORIDE 1,000 ML IV SCH ×2 (04:23→10:17)
[2018-08-25 06:25] LABS: BASO % 0.7 % (0-2.0); EOS % 5.9 % (0-4.5); HEMATOCRIT 27.8 % (35.4-49); LYMPH % 29.2 % (8-40); MCH 26.3 pg (25.7-33.7); MCHC 32.4 g/dl (32.0-35.9); MEAN PLT VOLUME 8.4 fl (7.5-11.1); MONO % 9.4 % (3.8-10.2); NEUT % 54.8 % (42.8-82.8); PLATELET COUNT 293 K/MM3 (134-434); RBC 3.43 M/mm3 (4.00-5.60); RDW 16.2 % (11.9-15.9); WHITE BLOOD COUNT 8.3 K/mm3 (4.0-10.0)
[2018-08-25 06:58] LABS: ALBUMIN 1.8 g/dl (3.4-5.0); ALK PHOS 137 U/L (45-117); ANION GAP 10 MMOL/L (8-16); BILIRUBIN,TOTAL 0.2 mg/dL (0.2-1); BLOOD UREA NITROGEN 39 mg/dL (7-18); CALCIUM 7.6 mg/dL (8.5-10.1); CHLORIDE 103 mmol/L (98-107); CO2 19 mmol/L (21-32); CREATININE 3.2 mg/dL (0.55-1.3); GLUCOSE,RANDOM 277 mg/dL (74-106); MAGNESIUM 1.6 mg/dL (1.8-2.4); PHOSPHOROUS 4.7 mg/dL (2.5-4.9); POTASSIUM 4.9 mmol/L (3.5-5.1); SGOT/AST 5 U/L (15-37); SGPT/ALT 12 U/L (13-61); SODIUM 132 mmol/L (136-145); TOT PROT 5.9 g/dl (6.4-8.2)
[2018-08-25] MEDS ORDERED: HEPARIN NA (PORCINE) 5,000 UNITS/ML 1ML VIAL ONE (07:06)
[2018-08-25] MEDS: INSULIN SLIDING SCALE (NOVOLOG) 1 VIAL SQ SCH ×4 (07:13→23:06)
[2018-08-25] MEDS: HEPARIN NA (PORCINE) 5,000 UNITS/ML 1ML VIAL SQ SCH ×3 (07:13→23:05)
[2018-08-25] MEDS: INSULIN (LEVEMIR) 100 UNITS/ML UNITS SQ SCH ×2 (07:13→23:05)
[2018-08-25 08:06] LABS: GAMMA GLUTAMYL TRANSPEPTIDASE 13 U/L (5-85)
[2018-08-25 09:34] LABS: ACETONE SERUM NEGATIVE (NEGATIVE)
[2018-08-25] MEDS ORDERED: PIPERACILLIN/TAZOBACTAM 3.375 GM VIAL IVPB ONE (09:59)
[2018-08-25] MEDS ORDERED: DEXTROSE 5%-WATER - 50 ML IVPB ONE (09:59)
[2018-08-25] MEDS ORDERED: PIPERACILLIN/TAZOB 2.25 GM 2.25 GM in DEXTROSE 5%-WATER - 50 ML IVPB SCH (10:00)
[2018-08-25] MEDS ORDERED: PIPERACILLIN/TAZOB 3.375 GM 3.375 GM in DEXTROSE 5%-WATER - 50 ML IVPB SCH (10:00)
[2018-08-25] MEDS ORDERED: ACETAMINOPHEN 1000 MG/100 ML VIAL (NON FORMULARY) IVPB ONE (10:30)
--- NOTE | 2018-08-25 11:53 | PN ---
Progress Note (short form) - Note Progress Note: ID consult dictated
[2018-08-25] MEDS ORDERED: DEXTROSE 5%-WATER 100 ML IVPB ONE (12:34)
[2018-08-25] MEDS: CEFTRIAXONE 2 GM in DEXTROSE 5%-WATER 100 ML IVPB SCH (12:36)
[2018-08-25] MEDS: FUROSEMIDE 40 MG TABLET (FP) PO SCH (12:36)
--- NOTE | 2018-08-25 13:55 | PN ---
Teaching Attending Note Name of Resident: Bryan Huerta ATTENDING PHYSICIAN STATEMENT I saw and evaluated the patient. I reviewed the resident's note and discussed the case with the resident. I agree with the resident's findings and plan as documented. SUBJECTIVE: no GRAY, no fever or chills. no abd pain, reports non compliance with his insulin . reports no healing ulcer in his L first big toe for which he goes to wound care but has not gone in along time OBJECTIVE: NAD CV: RRR Lungs: CTAB Ext: no edema. L big toe ulcer on plantar surface with no erythema, no edema , and no discharge. loss of sensation to light touch in planar surface of feet SKin: on erythematous indurated area on L lateral gluteal area with no fluctuation . endurated area with open center with no discharge medial to that first one. a small indurated area on R lateral guteal area with no discharge ASSESSMENT AND PLAN: 52 y/o man with h/o DM , HTN, Asthma, HLP, CKD, chronic back pain,OM of L metatarsal head , recurrent skin infections especially in gluteal area who presented with gluteal pain and was found to have gluteal abscesses. 1- Gluteal abscesses: due to poorly controlled DM. evaluated by SX and no surgical intervention is indicated at this time seen by ID and recs are still pending wound cx from previous admissions showed strep species and enterobater - cont abx ( ceftriaxone now ) - follow cx 2- poorly controlled DM with possible HHS. A1c 15 - will try 40 of levemir BID instead of his home regimen 80 dialy. - SSI - educated about Dm . will consult dietitian 3- h/o Diastolic CHF: not in exacerbation .cont lasix 4- CKD: Cr at base line . monitor 5- Hyperkalemia: due to renal failure, resolved. not on any ACEI or ARB . 6- HTN: cont norvasc. DVT Px Will confirm meds
[2018-08-25] MEDS ORDERED: oxyCODONE HCL 5 MG TABLET PO PRN (14:00)
--- NOTE | 2018-08-25 14:19 | EKG ---
Test Reason : Blood Pressure : / mmHG Vent. Rate : 077 BPM Atrial Rate : 077 BPM P-R Int : 182 ms QRS Dur : 114 ms QT Int : 396 ms P-R-T Axes : 064 -29 120 degrees QTc Int : 448 ms NORMAL SINUS RHYTHM NON-SPECIFIC INTRA-VENTRICULAR CONDUCTION DELAY POSSIBLE LEFT ATRIAL ENLARGEMENT INCOMPLETE RIGHT BUNDLE BRANCH BLOCK T WAVE ABNORMALITY, CONSIDER LATERAL ISCHEMIA ABNORMAL ECG Confirmed by PHIL LOO MD ([id number]) on 08/25/2018 2:18:50 PM Referred By: Confirmed By:PHIL LOO MD
--- NOTE | 2018-08-25 14:21 | CONSULT ---
- Consultation REQUESTING PROVIDER: Hillary DRISCOLL CONSULT REQUEST: We have been asked to surgically evaluate this patient for management of an ABSSSI of the left buttocks and posterior thigh and right buttock. PCP:Landen Thornton HISTORY OF PRESENT ILLNESS: The areas of concern of the patient have been chronic in nature; he has had an I and D of the area 01/11/18. PMHx: IDDM/HTN/HLD PSHx: I and D Home Medications Medication Instructions Recorded Acetaminophen [Tylenol .Regular 650 mg PO Q6H PRN #30 tablet 11/30/17 Strength -] Amlodipine Besylate [Norvasc -] 5 mg PO DAILY #30 tablet 11/30/17 Atorvastatin Ca [Lipitor] 40 mg PO HS #30 tablet 11/30/17 Furosemide [Lasix -] 40 mg PO DAILY 01/09/18 Amoxicillin/Potassium Clav 1 each PO BID #14 tablet 01/12/18 [Augmentin 875-125 Tablet] Aspirin [ASA -] 81 mg PO DAILY #30 tab.chew 01/12/18 Insulin Aspart [Novolog Flexpen] See Protocol SQ ACHS #25 insuln.pen 01/12/18 Insulin Detemir [Levemir Flextouch] 60 unit SQ ASDIR #25 insuln.pen 01/12/18 Allergies Allergy/AdvReac Type Severity Reaction Status Date / Time No Known Allergies Allergy Verified 08/24/18 19:49 PHYSICAL EXAM: GENERAL: Awake, alert, and fully oriented, in no acute distress. HEAD: Normal with no signs of trauma. EYES: sclera anicteric, conjunctiva clear. NECK: Normal ROM, supple without lymphadenopathy, JVD, or masses. ABDOMEN: Soft, nontender, not distended, normoactive bowel sounds, no guarding, no rebound, no masses. No organomegaly. MUSCULOSKELETAL: Normal ROM at all joints. No bony deformities or tenderness. No CVA tenderness. UPPER EXTREMITIES: 2+ pulses, warm, well-perfused. No cyanosis. Cap refill <2 seconds. No peripheral edema. LOWER EXTREMITIES: 2+ pulses, warm, well-perfused. No calf tenderness. No peripheral edema. NEUROLOGICAL: Normal speech, gait not observed. PSYCH: Cooperative. Good eye contact. Appropriate mood and affect. SKIN: Indurated areas left buttock and open area left posterio thigh; indurated right buttock; no areas of fluctuance per se; ttp is present; o/w negative. Vital Signs Temperature 98.4 F 08/25/18 07:10 Pulse Rate 71 08/25/18 07:10 Respiratory Rate 16 08/25/18 10:43 Blood Pressure 124/67 08/25/18 07:10 O2 Sat by Pulse Oximetry (%) 100 08/25/18 10:43 Lab Results WBC 8.3 K/mm3 (4.0-10.0) 08/25/18 05:30 RBC 3.43 M/mm3 (4.00-5.60) L 08/25/18 05:30 Hgb 9.0 GM/dL (11.7-16.9) L 08/25/18 05:30 Hct 27.8 % (35.4-49) L 08/25/18 05:30 MCV 81.0 fl (80-96) 08/25/18 05:30 MCHC 32.4 g/dl (32.0-35.9) 08/25/18 05:30 RDW 16.2 % (11.9-15.9) H 08/25/18 05:30 Plt Count 293 K/MM3 (134-434) 08/25/18 05:30 Sodium 132 mmol/L (136-145) L 08/25/18 05:30 Potassium 4.9 mmol/L (3.5-5.1) 08/25/18 05:30 Chloride 103 mmol/L (98-107) 08/25/18 05:30 Carbon Dioxide 19 mmol/L (21-32) L 08/25/18 05:30 Anion Gap 10 MMOL/L (8-16) 08/25/18 05:30 BUN 39 mg/dL (7-18) H 08/25/18 05:30 Creatinine 3.2 mg/dL (0.55-1.3) H 08/25/18 05:30 Random Glucose 277 mg/dL (74-106) H 08/25/18 05:30 Calcium 7.6 mg/dL (8.5-10.1) L 08/25/18 05:30 IMP: cellulitis/open wounds PLAN: IVABS; LWC glucose control; showers; will f/u; may come to I and D Joshua Kaur MD FACS
--- NOTE | 2018-08-25 14:43 | PN ---
Progress Note (short form) - Note Progress Note: ID consult dictated imp/reccd 52 yo man with diabetes- poorly compliant, obese with recurrent buttock abscesses- group b strep remote history of MRSA of his toe 2014 has had a buttock wound for one month, now two smaller abscesses are forming no fevers otherwise well got vancomycin and zosyn in ED has CKD as well would send wound culture switch to ceftriaxone surgical consult pending Problem List - Problems (1) Abscess of buttock Code(s): L02.31 - CUTANEOUS ABSCESS OF BUTTOCK (2) Diabetes mellitus type 2, uncontrolled Code(s): E11.65 - TYPE 2 DIABETES MELLITUS WITH HYPERGLYCEMIA (3) CKD (chronic kidney disease) Code(s): N18.9 - CHRONIC KIDNEY DISEASE, UNSPECIFIED Qualifiers: Chronic kidney disease stage: unspecified stage Qualified Code(s): N18.9 - Chronic kidney disease, unspecified (4) Morbid obesity Code(s): E66.01 - MORBID (SEVERE) OBESITY DUE TO EXCESS CALORIES
--- NOTE | 2018-08-25 15:59 | CONS ---
DATE OF CONSULTATION: DATE OF DICTATION: 08/25/2018 REQUESTING PHYSICIAN: Hospitalist Service CONSULTING PHYSICIAN: Bindu Lindsey M.D. HISTORY OF PRESENT ILLNESS: This is a 52-year-old man with a history of poorly controlled diabetes, obesity, and CKD, who presents with an ulcer on his buttock that he has had for at least a month. He now over the last 2 weeks has noted 2 smaller ones forming, and he became concerned, and came to the emergency room. Denies any fevers or chills. Does report he has had these abscesses in the past. He was hospitalized twice in 2018 for buttock abscesses and one perineal abscess, and cultures also grew B strep. He has had no fevers at home, and he otherwise feels well. There is no nausea or vomiting, no dysuria or abdominal chest pain. PAST MEDICAL HISTORY: Notable for diabetes noninsulin dependent. He has known diabetic eye disease as well as neuropathy. He has had laser therapy to his eyes. He has a history of peripheral neuropathy and CKD as well. History of morbid obesity, asthma, hypertension, hyperlipidemia. He has had a diabetic foot infection in the past in 2014 and grew MRSA from the toe, where he still has a small open ulcer that is not draining. SURGICAL HISTORY: Notable for knee surgery and drainage of abscess. ALLERGIES: No known drug allergies. MEDICATION: Medications at home include insulin, furosemide, Lipitor, aspirin, amlodipine. SOCIAL HISTORY: He lives at home. There is no history of cigarette, alcohol, or substance use. FAMILY HISTORY: Noncontributory. REVIEW OF SYSTEMS: Notable for the fact he is aware his sugars have been very high recently, and he has had poor control. PHYSICAL EXAMINATION: GENERAL: He is awake and alert in no acute distress. VITAL SIGNS: He is afebrile. His temperature is 97.6, pulse 81, blood pressure 131/67, respiratory rate 20, saturating 100% on room air, he weighs 149 kg. HEENT: Normocephalic. Eyes are anicteric. NECK: Supple. LUNGS: Clear to auscultation. HEART: Regular rate and rhythm. ABDOMEN: Soft, nontender. BUTTOCKS: On his buttock he has a superficial ulcer. He has an indurated left buttock with an open area. He has 2 other small areas of induration. There is no fluctuance. LABORATORY: Notable for a white count of 8.3, hemoglobin 9, platelets of 293. His BUN and creatinine are 39 and 3.2. His hemoglobin A1c is 15. Cultures have been sent, and we ordered a wound culture as well that we are collecting. He had there was no DVT in both legs. He had arterial Dopplers that were unremarkable, and he had a chest x-ray showed no acute chest pathology. IMPRESSION: In summary, this is a 52-year-old man with poorly controlled diabetes evidenced by hemoglobin A1c of 15, morbid obesity, with a 1-month history of a buttocks wound and 2 smaller abscesses that are forming. Suspect this is recurrent group B strep. He received vancomycin and Zosyn in the emergency room. I would treat him with ceftriaxone at this time. Would send a wound culture and follow up with surgery. Further recommendations to follow. BINDU LINDSEY M.D. [id number]
[2018-08-25] MEDS: ACETAMINOPHEN 325 MG TABLET (FP) PO PRN (17:28)
[2018-08-25] MEDS ORDERED: VANCOMYCIN HCL 1,500 MG in DEXTROSE 5%-WATER - 500 ML IVPB SCH (20:00)
[2018-08-25] MEDS: ATORVASTATIN CA 40 MG TABLET (FP) PO SCH (23:06)
[2018-08-26] MEDS: INSULIN SLIDING SCALE (NOVOLOG) 1 VIAL SQ SCH ×4 (06:23→21:14)
[2018-08-26] MEDS: INSULIN (LEVEMIR) 100 UNITS/ML UNITS SQ SCH ×2 (06:23→21:14)
[2018-08-26] MEDS: HEPARIN NA (PORCINE) 5,000 UNITS/ML 1ML VIAL SQ SCH ×3 (06:25→21:15)
[2018-08-26] MEDS ORDERED: DEXTROSE 5%-WATER 100 ML IVPB ONE (08:39)
[2018-08-26] MEDS: FUROSEMIDE 40 MG TABLET (FP) PO SCH (09:06)
[2018-08-26] MEDS: CEFTRIAXONE 2 GM in DEXTROSE 5%-WATER 100 ML IVPB SCH (09:06)
[2018-08-26] MEDS: ASPIRIN COATED 81 MG TABLET.EC PO SCH (09:06)
[2018-08-26] MEDS: amLODIPine BESYLATE 5 MG TABLET (FP) PO SCH (09:06)
--- NOTE | 2018-08-26 10:02 | PN ---
Progress Note (short form) - Note Progress Note: Attending Surgeon No c/o VSS AF wounds/carolynn of concern remain the same and possibly improved IMP: ABSSSI of the left buttocks/left posterior upper thigh and right posterior upper thigh PLAN: Continue present txx.; will reevaluate 08/27/18 for need for possible I and D 08/28/18. Joshua Kaur MD FACS
[2018-08-26 10:14] LABS: ALBUMIN 1.6 g/dl (3.4-5.0); ALK PHOS 110 U/L (45-117); ANION GAP 6 MMOL/L (8-16); BILIRUBIN,TOTAL 0.1 mg/dL (0.2-1); BLOOD UREA NITROGEN 37 mg/dL (7-18); CALCIUM 7.6 mg/dL (8.5-10.1); CHLORIDE 110 mmol/L (98-107); CO2 20 mmol/L (21-32); CREATININE 3.3 mg/dL (0.55-1.3); GLUCOSE,RANDOM 234 mg/dL (74-106); POTASSIUM 4.7 mmol/L (3.5-5.1); SGOT/AST 4 U/L (15-37); SGPT/ALT 9 U/L (13-61); SODIUM 136 mmol/L (136-145); TOT PROT 5.6 g/dl (6.4-8.2)
--- NOTE | 2018-08-26 11:24 | PN ---
Physical Exam: SUBJECTIVE: Patient seen and examined at bedside- states that his pain is an 8/ 10 however denies any CP/SOB/N/V fevers or chills OBJECTIVE: Vital Signs Period Temp Pulse Resp BP Sys/Swartz Pulse Ox Last 24 Hr 97.6 F-98.7 F 81-93 18-20 131-168/67-93 98 GENERAL: The patient is awake, alert, and fully oriented, in no acute distress. EYES: PEERLA; EOMI; no scleral icterus . . NECK: no JVD; no lymphadenopathy LUNGS: CTA B/L; no rales, rhonchi or wheezinh. HEART: Regular rate and rhythm, S1, S2 without murmur, rub or gallop. ABDOMEN: Soft, nontender, nondistended, normoactive bowel sounds, no guarding, no rebound, no hepatosplenomegaly, no masses. EXTREMITIES: 2+ pulses, warm, well-perfused, no edema. BUTTOCK: 2 (? 3 but would be smaller) quarter to half-dollar sized areas of fluctuance with surrounding rubar and induration; ~2x2cm opening on the larger of the 2 draining purulent material NEUROLOGICAL: Cranial nerves II through XII grossly intact. Normal speech, gait not observed. PSYCH: Normal mood, normal affect. SKIN: Warm, dry, normal turgor, no rashes or lesions noted Laboratory Results - last 24 hr 08/25/18 08/25/18 08/26/18 11:11 16:41 06:16 Sodium Potassium Chloride Carbon Dioxide Anion Gap BUN Creatinine Creat Clearance w eGFR POC Glucometer 233 243 222 Random Glucose Calcium Total Bilirubin AST ALT Alkaline Phosphatase Total Protein Albumin 08/26/18 08:43 Sodium 136 Potassium 4.7 Chloride 110 H Carbon Dioxide 20 L Anion Gap 6 L BUN 37 H Creatinine 3.3 H Creat Clearance w eGFR 19.94 POC Glucometer Random Glucose 234 H Calcium 7.6 L Total Bilirubin 0.1 L AST 4 L ALT 9 L Alkaline Phosphatase 110 Total Protein 5.6 L Albumin 1.6 L Active Medications Generic Name Dose Route Start Last Admin Trade Name Freq PRN Reason Stop Dose Admin Acetaminophen 325 mg 08/25/18 14:00 08/25/18 17:28 Tylenol - PO 325 mg Q8H PRN Administration PAIN 5-10 Amlodipine Besylate 5 mg 08/26/18 10:00 08/26/18 09:06 Norvasc - PO 5 mg DAILY MARY Administration Aspirin 81 mg 08/26/18 10:00 08/26/18 09:06 Ecotrin - PO 81 mg DAILY MARY Administration Atorvastatin Calcium 40 mg 08/25/18 22:00 08/25/18 23:06 Lipitor - PO 40 mg HS MARY Administration Furosemide 40 mg 08/25/18 11:15 08/26/18 09:06 Lasix - PO 40 mg DAILY MARY Administration Heparin Sodium (Porcine) 5,000 unit 08/25/18 06:00 08/26/18 06:25 Heparin - SQ 5,000 unit TID MARY Administration Ceftriaxone Sodium 2 gm/ 100 mls @ 200 mls/hr 08/25/18 12:00 08/26/18 09:06 Dextrose IVPB 200 mls/hr DAILY MARY Administration Protocol Insulin Aspart 1 vial 08/25/18 07:00 08/26/18 06:23 Novolog Vial Sliding Scale - SQ 2 unit ACHS MARY Administration Protocol Insulin Detemir 40 units 08/25/18 07:00 08/26/18 06:23 Levemir Vial SQ 40 unit BID@0700,2200 MARY Administration Oxycodone HCl 10 mg 08/26/18 10:45 Roxicodone - PO Q8H PRN PAIN 5-10 ASSESSMENT/PLAN: Patient is a 52 year old male with IDDM (noncompliant), HTN, diastolic CHF, and CKD, presents to the ED due to worsening left buttock abscess in the last month. #Nonhealing ulcer, left gluteal area Ceftriaxone day 2 -, f/u wound culture -Wound care -oxycodone 10mg PRN for pain -ID (Dr. Diaz) consulted -dr thomas might do I and D on 08/28 will reevaluate tomorrow #IDDM: uncontrolled -levemir 40 BID -ISS -BGMS ACHS -diabetic teaching #JAC on CKD -BUN/Cr 36/3.2 (baseline 3-3.5) -Follows up with Dr. Castle -Avoid nephrotoxic agents such as aminoglycosides, contrast agents #Diastolic CHF -On home Lasix 40mg daily -Patient reported he only takes the medication when he has leg swelling, has not been taking it recently -Echo (2017): EF 53%, mild concentric LVH, Moderator band in RV, LA moderately dilated, RA mildly dilated. Mild MR, Moderate TR. RV systolic pressure elevated 50-60mmHg. Severe pulmonary HTN. Mild aortic dilatation. #HTN -Continue home Amlodipine 5mg daily -monitor BP #FEN -IV NS @100cc/hr -Routine bmp monitoring -Diabetic/sodium controlled diet #Prophylaxis -Heparin 5000units sq tid Problem List - Problems (1) Abscess Code(s): L02.91 - CUTANEOUS ABSCESS, UNSPECIFIED (2) CHF (congestive heart failure) Code(s): I50.9 - HEART FAILURE, UNSPECIFIED Qualifiers: Qualified Code(s): I50.9 - Heart failure, unspecified (3) CKD (chronic kidney disease) Code(s): N18.9 - CHRONIC KIDNEY DISEASE, UNSPECIFIED Qualifiers: Chronic kidney disease stage: unspecified stage Qualified Code(s): N18.9 - Chronic kidney disease, unspecified (4) Asthma Code(s): J45.909 - UNSPECIFIED ASTHMA, UNCOMPLICATED Visit type - Emergency Visit Emergency Visit: Yes ED Registration Date: 08/24/18 Care time: The patient presented to the Emergency Department on the above date and was hospitalized for further evaluation of their emergent condition. - New Patient This patient is new to me today: Yes Date on this admission: 08/26/18 - Critical Care Critical Care patient: No
--- NOTE | 2018-08-26 11:32 | PN ---
Teaching Attending Note Name of Resident: Vijaya Louis ATTENDING PHYSICIAN STATEMENT I saw and evaluated the patient. I reviewed the resident's note and discussed the case with the resident. I agree with the resident's findings and plan as documented. SUBJECTIVE: no SOB or GRAY , no fever . gray sno diarrhea . cont to have pain in buttock area OBJECTIVE: NAD CV: RRR Lungs: CTAB Ext: no edema. L big toe ulcer on plantar surface with no erythema, no edema , and no discharge. loss of sensation to light touch in planar surface of feet SKin: erythematous indurated area on L lateral gluteal area with no fluctuation . indurated area with open center with no discharge medial to that first one. a small indurated area on R lateral guteal area with no discharge ASSESSMENT AND PLAN: 52 y/o man with h/o DM , HTN, Asthma, HLP, CKD, chronic back pain,OM of L metatarsal head , recurrent skin infections especially in gluteal area who presented with gluteal pain and was found to have gluteal abscesses. 1- Gluteal abscesses: due to poorly controlled DM. - monitor daily for possible drainage - cont ceftriaxone - follow wound cx. - increase percocet to home dose 2- HHS. sugar is better controlled now .A1c 15 - cont levemir 40 BID - SSI 3- h/o Diastolic CHF: not in exacerbation .cont lasix 4- CKD: Cr at base line . monitor 5- Hyperkalemia: due to renal failure, resolved. not on any ACEI or ARB . 6- HTN: resume home cardizem. cont norvasc for now DVT Px
[2018-08-26] MEDS: oxyCODONE HCL 5 MG TABLET PO PRN ×2 (11:33→21:15)
[2018-08-26] MEDS: ACETAMINOPHEN 325 MG TABLET (FP) PO PRN ×2 (11:34→21:15)
[2018-08-26] MEDS ORDERED: VANCOMYCIN HCL 1,250 MG in DEXTROSE 5%-WATER - 250 ML IVPB ONE (12:11)
--- NOTE | 2018-08-26 12:11 | PN ---
Progress Note, Physician Chief Complaint: NO C/O BUTTOCK PAIN NO F/C WOUND C/S PRESUMED MRSA - Current Medication List Current Medications: Active Medications Acetaminophen (Tylenol -) 325 mg PO Q8H PRN PRN Reason: PAIN 5-10 Last Admin: 08/26/18 11:34 Dose: 325 mg Amlodipine Besylate (Norvasc -) 5 mg PO DAILY [facility] Last Admin: 08/26/18 09:06 Dose: 5 mg Aspirin (Ecotrin -) 81 mg PO DAILY [facility] Last Admin: 08/26/18 09:06 Dose: 81 mg Atorvastatin Calcium (Lipitor -) 40 mg PO HS [facility] Last Admin: 08/25/18 23:06 Dose: 40 mg Diltiazem HCl (Cardizem Cd -) 240 mg PO DAILY [facility] Furosemide (Lasix -) 40 mg PO DAILY [facility] Last Admin: 08/26/18 09:06 Dose: 40 mg Heparin Sodium (Porcine) (Heparin -) 5,000 unit SQ TID [facility] Last Admin: 08/26/18 06:25 Dose: 5,000 unit Ceftriaxone Sodium 2 gm/ (Dextrose) 100 mls @ 200 mls/hr IVPB DAILY [facility]; Protocol Last Admin: 08/26/18 09:06 Dose: 200 mls/hr Insulin Aspart (Novolog Vial Sliding Scale -) 1 vial SQ ACHS [facility]; Protocol Last Admin: 08/26/18 11:39 Dose: 4 unit Insulin Detemir (Levemir Vial) 40 units SQ BID@0700,2200 [facility] Last Admin: 08/26/18 06:23 Dose: 40 unit Oxycodone HCl (Roxicodone -) 10 mg PO Q8H PRN PRN Reason: PAIN 5-10 Last Admin: 08/26/18 11:33 Dose: 10 mg - Objective Vital Signs: Vital Signs Temperature 98.2 F 08/26/18 08:30 Pulse Rate 93 H 08/26/18 08:30 Respiratory Rate 18 08/26/18 08:30 Blood Pressure 168/93 08/26/18 08:30 O2 Sat by Pulse Oximetry (%) 98 08/25/18 21:00 Constitutional: Yes: Obese Cardiovascular: Yes: Regular Rate and Rhythm, S1, S2 Respiratory: Yes: CTA Bilaterally Gastrointestinal: Yes: Normal Bowel Sounds, Soft. No: Tenderness Integumentary: Yes: Other (+ SOFT TISSUE ABSCESSES R BUTTOCK) Labs: CBC, BMP 08/25/18 05:30 08/26/18 08:43 Assessment/Plan SOFT TISSUE ABSCESSES, BUTTOCK PRESUMED MRSA DM AZOTEMIA VANCOMYCIN X 1 DOSE, CHECK LEVEL AM CONTACT PRECAUTIONS
--- NOTE | 2018-08-26 12:52 | PN ---
Physical Exam: NOTE FOR . MEDITECH DOWN ON 08/25/18 SUBJECTIVE: Patient seen and examined at bedside. No acute events overnight. OBJECTIVE: Vital Signs Period Temp Pulse Resp BP Sys/Swartz Pulse Ox Last 24 Hr 97.6 F-98.7 F 81-93 18-20 131-168/67-93 98-98 GENERAL: NAD AAOX3 HEAD: Normal with no signs of trauma. EYES: EOMI Sclera clear ENT: MMM NECK: Trachea midline, full range of motion, supple. LUNGS: CTAB HEART: RRR NL S1S2 ABDOMEN: Obese nondistended nontender EXTREMITIES: open ulcer left toe nonoozing no odor appreciated. Buttock: Left buttock with ~2 cm open wound nonoozing non odorous. Right buttock with coin sized induration. NEUROLOGICAL: CN 2-12 intact PSYCH: Normal mood, normal affect. Laboratory Results - last 24 hr 08/25/18 08/26/18 08/26/18 16:41 06:16 08:43 Sodium 136 Potassium 4.7 Chloride 110 H Carbon Dioxide 20 L Anion Gap 6 L BUN 37 H Creatinine 3.3 H Creat Clearance w eGFR 19.94 POC Glucometer 243 222 Random Glucose 234 H Calcium 7.6 L Total Bilirubin 0.1 L AST 4 L ALT 9 L Alkaline Phosphatase 110 Total Protein 5.6 L Albumin 1.6 L 08/26/18 11:37 Sodium Potassium Chloride Carbon Dioxide Anion Gap BUN Creatinine Creat Clearance w eGFR POC Glucometer 243 Random Glucose Calcium Total Bilirubin AST ALT Alkaline Phosphatase Total Protein Albumin Active Medications Generic Name Dose Route Start Last Admin Trade Name Freq PRN Reason Stop Dose Admin Acetaminophen 325 mg 08/25/18 14:00 08/26/18 11:34 Tylenol - PO 325 mg Q8H PRN Administration PAIN 5-10 Amlodipine Besylate 5 mg 08/26/18 10:00 08/26/18 09:06 Norvasc - PO 5 mg DAILY MARY Administration Aspirin 81 mg 08/26/18 10:00 08/26/18 09:06 Ecotrin - PO 81 mg DAILY MARY Administration Atorvastatin Calcium 40 mg 08/25/18 22:00 08/25/18 23:06 Lipitor - PO 40 mg HS MARY Administration Diltiazem HCl 240 mg 08/26/18 12:00 08/26/18 12:39 Cardizem Cd - PO 240 mg DAILY MARY Administration Furosemide 40 mg 08/25/18 11:15 08/26/18 09:06 Lasix - PO 40 mg DAILY MARY Administration Heparin Sodium (Porcine) 5,000 unit 08/25/18 06:00 08/26/18 06:25 Heparin - SQ 5,000 unit TID MARY Administration Ceftriaxone Sodium 2 gm/ 100 mls @ 200 mls/hr 08/25/18 12:00 08/26/18 09:06 Dextrose IVPB 200 mls/hr DAILY MARY Administration Protocol Vancomycin HCl 1,250 mg/ 250 mls @ 250 mls/2 hr 08/26/18 12:11 Dextrose IVPB 08/26/18 14:10 ONCE ONE Protocol Insulin Aspart 1 vial 08/25/18 07:00 08/26/18 11:39 Novolog Vial Sliding Scale - SQ 4 unit ACHS MARY Administration Protocol Insulin Detemir 40 units 08/25/18 07:00 08/26/18 06:23 Levemir Vial SQ 40 unit BID@0700,2200 MARY Administration Oxycodone HCl 10 mg 08/26/18 10:45 08/26/18 11:33 Roxicodone - PO 10 mg Q8H PRN Administration PAIN 5-10 ASSESSMENT/PLAN: Patient is a 52 year old male with IDDM (noncompliant), HTN, diastolic CHF, and CKD, presents to the ED due to worsening left buttock abscess in the last month. #Nonhealing ulcer, left gluteal area -Vanc/zosyn given at the ED - Ceftriaxone 2 gm daily. -Blood cultures, wound culture -Lactic acid wnl -Gentle hydration -Wound care -Dr Rubio on board -wound cx from previous admissions showed strep species and enterobater #IDDM: uncontrolled -Glu 855 --> 727 -anion gap closed, lactic acid wnl -Insulin 6 units sq, 18 units IV given at the ED -BGM q2h -ISS - Levemir 40 units sq bid. #Hyperkalemia -K 6.3 --> 5.5 -Insulin 6 units sq, 18 units IV given at the ED -Iv NS -EKG: NSR, with T wave changes seen on previous EKG -will continue to monitor bmp #JAC on CKD -BUN/Cr 36/3.2 (baseline 3-3.5) -Follows up with Dr. Castle -Avoid nephrotoxic agents such as aminoglycosides, contrast agents #Diastolic CHF -On home Lasix 40mg daily -Patient reported he only takes the medication when he has leg swelling, has not been taking it recently -Echo (2017): EF 53%, mild concentric LVH, Moderator band in RV, LA moderately dilated, RA mildly dilated. Mild MR, Moderate TR. RV systolic pressure elevated 50-60mmHg. Severe pulmonary HTN. Mild aortic dilatation. #HTN - Amlodipine 5mg daily -monitor BP #FEN -No Fluids -monitor electrolytes -Diabetic/sodium controlled diet #Prophylaxis -Heparin 5000units sq tid #Dispo med-surg Visit type - Emergency Visit Emergency Visit: Yes ED Registration Date: 08/24/18 Care time: The patient presented to the Emergency Department on the above date and was hospitalized for further evaluation of their emergent condition. - New Patient This patient is new to me today: No - Critical Care Critical Care patient: No - Discharge Referral Referred to [facility] No
[2018-08-26] MEDS ORDERED: DOXYCYCLINE MONOHYDRATE 25 MG/5 ML SUSPENSION PO SCH (18:00)
[2018-08-26] MEDS: ATORVASTATIN CA 40 MG TABLET (FP) PO SCH (21:15)
[2018-08-27] MEDS: HEPARIN NA (PORCINE) 5,000 UNITS/ML 1ML VIAL SQ SCH ×3 (06:18→21:50)
[2018-08-27] MEDS: oxyCODONE HCL 5 MG TABLET PO PRN ×3 (06:18→21:57)
[2018-08-27] MEDS: ACETAMINOPHEN 325 MG TABLET (FP) PO PRN ×2 (06:18→13:51)
[2018-08-27] MEDS: INSULIN (LEVEMIR) 100 UNITS/ML UNITS SQ SCH ×2 (06:18→21:53)
[2018-08-27] MEDS: INSULIN SLIDING SCALE (NOVOLOG) 1 VIAL SQ SCH ×4 (06:18→21:53)
[2018-08-27 06:27] LABS: MCH 26.9 pg (25.7-33.7); MEAN CELL VOLUME 81.6 fl (80-96); MEAN PLT VOLUME 8.8 fl (7.5-11.1); PLATELET COUNT 310 K/MM3 (134-434); RDW 16.9 % (11.9-15.9)
[2018-08-27 06:43] LABS: HEMATOCRIT 17.9 % (35.4-49); HEMOGLOBIN 5.9 GM/dL (11.7-16.9)
[2018-08-27 06:52] LABS: ANION GAP 8 MMOL/L (8-16); BLOOD UREA NITROGEN 41 mg/dL (7-18); CALCIUM 7.5 mg/dL (8.5-10.1); CHLORIDE 110 mmol/L (98-107); CO2 20 mmol/L (21-32); CREATININE 3.7 mg/dL (0.55-1.3); GLUCOSE,RANDOM 176 mg/dL (74-106); MAGNESIUM 1.5 mg/dL (1.8-2.4); PHOSPHOROUS 5.4 mg/dL (2.5-4.9); POTASSIUM 4.8 mmol/L (3.5-5.1); SODIUM 137 mmol/L (136-145)
[2018-08-27 07:57] LABS: HEMATOCRIT 27.4 % (35.4-49); HEMOGLOBIN 8.8 GM/dL (11.7-16.9); MCH 26.3 pg (25.7-33.7); MCHC 32.2 g/dl (32.0-35.9); MEAN CELL VOLUME 81.5 fl (80-96); MEAN PLT VOLUME 8.2 fl (7.5-11.1); PLATELET COUNT 258 K/MM3 (134-434); RBC 3.36 M/mm3 (4.00-5.60); RDW 16.6 % (11.9-15.9)
[2018-08-27] MEDS ORDERED: DEXTROSE 5%-WATER 100 ML IVPB ONE (08:46)
[2018-08-27] MEDS: FUROSEMIDE 40 MG TABLET (FP) PO SCH (09:51)
[2018-08-27] MEDS: ASPIRIN COATED 81 MG TABLET.EC PO SCH (09:51)
[2018-08-27] MEDS: CEFTRIAXONE 2 GM in DEXTROSE 5%-WATER 100 ML IVPB SCH (09:51)
[2018-08-27] MEDS: amLODIPine BESYLATE 5 MG TABLET (FP) PO SCH (09:51)
--- NOTE | 2018-08-27 12:05 | PN ---
Progress Note (short form) - Note Progress Note: Attending Surgeon No c/o VSS AF skin-no change in exam IMP: ABSSSI w/o drainable abscesse(s) PLAN Continue present tx.; reconsult prn. Joshua Kaur MD FACS
[2018-08-27] MEDS ORDERED: VANCOMYCIN 1 GRAM (PRE-DOCKED) 1,000 MG/250 ML BAG IVPB ONE (17:00)
--- NOTE | 2018-08-27 17:31 | PN ---
Progress Note (short form) - Note Progress Note: Subjective: No fever or chills. No abd pain. has buttock pain Objective: Vital Signs: Last Vital Signs Temp Pulse Resp BP Pulse Ox 98 F 81 20 131/7 L 97 08/27/18 15:00 08/27/18 15:00 08/27/18 15:00 08/27/18 15:00 08/27/18 09:00 Laboratory Results - last 24 hr 08/26/18 08/27/18 08/27/18 21:13 05:15 05:15 WBC 9.0 RBC 2.20 L Hgb 5.9 L* Hct 17.9 L D MCV 81.6 MCH 26.9 MCHC 33.0 RDW 16.9 H Plt Count 310 MPV 8.8 Sodium Potassium Chloride Carbon Dioxide Anion Gap BUN Creatinine Creat Clearance w eGFR POC Glucometer 207 Random Glucose Calcium Phosphorus Magnesium Random Vancomycin 18.6 08/27/18 08/27/18 08/27/18 05:15 06:16 07:20 WBC 7.0 RBC 3.36 L Hgb 8.8 L Hct 27.4 L D MCV 81.5 MCH 26.3 MCHC 32.2 RDW 16.6 H Plt Count 258 MPV 8.2 Sodium 137 Potassium 4.8 Chloride 110 H Carbon Dioxide 20 L Anion Gap 8 BUN 41 H Creatinine 3.7 H Creat Clearance w eGFR 17.48 POC Glucometer 171 Random Glucose 176 H Calcium 7.5 L Phosphorus 5.4 H Magnesium 1.5 L Random Vancomycin 08/27/18 08/27/18 11:10 17:15 WBC RBC Hgb Hct MCV MCH MCHC RDW Plt Count MPV Sodium Potassium Chloride Carbon Dioxide Anion Gap BUN Creatinine Creat Clearance w eGFR POC Glucometer 188 219 Random Glucose Calcium Phosphorus Magnesium Random Vancomycin Physical Exam: NAD CV: RRR Lungs: CTAB Ext: no edema. L big toe ulcer on plantar surface with no erythema, no edema , and no discharge. SKin: erythematous indurated area on L lateral gluteal area with no fluctuation . indurated area with open center with no discharge medial to that first one. a small indurated area on R lateral guteal area with no discharge ASSESSMENT AND PLAN: 52 y/o man with h/o DM , HTN, Asthma, HLP, CKD, chronic back pain,OM of L metatarsal head , recurrent skin infections especially in gluteal area who presented with gluteal pain and was found to have gluteal abscesses. 1- Gluteal abscesses:+MRSA. due to poorly controlled DM. - cont vanco . dose today and level tomorrow 2- HHS. sugar is better controlled now .A1c 15 - cont levemir 40 BID - SSI 3- h/o Diastolic CHF: not in exacerbation .cont lasix 4- CKD: Cr slightly up. monitor 5- Hyperkalemia: due to renal failure, resolved. 6- HTN: cardizem and norvasc for now DVT Px Visit type - Emergency Visit Emergency Visit: Yes ED Registration Date: 08/24/18 Care time: The patient presented to the Emergency Department on the above date and was hospitalized for further evaluation of their emergent condition. - New Patient This patient is new to me today: No - Critical Care Critical Care patient: No
[2018-08-27] MEDS: ATORVASTATIN CA 40 MG TABLET (FP) PO SCH (21:50)
[2018-08-28 06:58] LABS: BASO % 0.7 % (0-2.0); EOS % 6.5 % (0-4.5); HEMATOCRIT 27.4 % (35.4-49); HEMOGLOBIN 8.9 GM/dL (11.7-16.9); LYMPH % 27.7 % (8-40); MCH 26.9 pg (25.7-33.7); MCHC 32.7 g/dl (32.0-35.9); MEAN CELL VOLUME 82.2 fl (80-96); MEAN PLT VOLUME 8.4 fl (7.5-11.1); MONO % 9.9 % (3.8-10.2); NEUT % 55.2 % (42.8-82.8); PLATELET COUNT 269 K/MM3 (134-434); RBC 3.33 M/mm3 (4.00-5.60); RDW 16.6 % (11.9-15.9); WHITE BLOOD COUNT 6.2 K/mm3 (4.0-10.0)
[2018-08-28] MEDS: INSULIN (LEVEMIR) 100 UNITS/ML UNITS SQ SCH ×2 (07:00→22:14)
[2018-08-28] MEDS: INSULIN SLIDING SCALE (NOVOLOG) 1 VIAL SQ SCH ×4 (07:03→22:10)
[2018-08-28 07:32] LABS: ANION GAP 9 MMOL/L (8-16); BLOOD UREA NITROGEN 44 mg/dL (7-18); CALCIUM 7.6 mg/dL (8.5-10.1); CHLORIDE 108 mmol/L (98-107); CO2 20 mmol/L (21-32); CREATININE 4.1 mg/dL (0.55-1.3); GLUCOSE,RANDOM 255 mg/dL (74-106); POTASSIUM 4.9 mmol/L (3.5-5.1); SODIUM 136 mmol/L (136-145)
[2018-08-28] MEDS: ACETAMINOPHEN 325 MG TABLET (FP) PO PRN ×2 (09:10→22:24)
[2018-08-28] MEDS: oxyCODONE HCL 5 MG TABLET PO PRN ×2 (09:10→22:22)
[2018-08-28] MEDS: ASPIRIN COATED 81 MG TABLET.EC PO SCH (09:12)
[2018-08-28] MEDS: amLODIPine BESYLATE 5 MG TABLET (FP) PO SCH (09:12)
[2018-08-28] MEDS: FUROSEMIDE 40 MG TABLET (FP) PO SCH (09:12)
[2018-08-28] MEDS: HEPARIN NA (PORCINE) 5,000 UNITS/ML 1ML VIAL SQ SCH ×3 (11:31→22:11)
--- NOTE | 2018-08-28 12:39 | PN ---
Progress Note (short form) - Note Progress Note: received vancomycin on 08/24, 08/26, 08/27 no complaints feels better Vital Signs Period Temp Pulse Resp BP Sys/Swartz Pulse Ox Last 24 Hr 98 F-98.7 F 78-81 20-20 131-131/7-60 97-97 cor-rrr lungs clear abd soft,nt ext no edema right buttock with scab, induration on lateral aspect about 1 -2 cm diameter left buttock with open wound no drainage left big toe unchanged CBC, BMP 08/28/18 06:10 08/28/18 06:10 Laboratory Tests 08/25/18 08/27/18 08/28/18 05:30 05:15 06:10 Hemoglobin A1c % 15.0 H Random Vancomycin 18.6 21.9 Microbiology 08/24/18 20:00 Blood - Peripheral Venous Blood Culture - Preliminary NO GROWTH OBTAINED AFTER 72 HOURS, INCUBATION TO CONTINUE FOR 2 DAYS. 08/24/18 20:00 Blood - Peripheral Venous Blood Culture - Preliminary NO GROWTH OBTAINED AFTER 72 HOURS, INCUBATION TO CONTINUE FOR 2 DAYS. 08/25/18 12:05 Abscess Gram Stain - Final 08/25/18 12:05 Abscess Wound Culture - Final Mr S Aureus a/p soft tissue infection of the buttocks poorly controlled DM obesity elise/akd suggest switch to clindamycin 300 mg po tid add probiotics outpt f/u of wounds Problem List - Problems (1) Abscess of buttock Code(s): L02.31 - CUTANEOUS ABSCESS OF BUTTOCK (2) Diabetes mellitus type 2, uncontrolled Code(s): E11.65 - TYPE 2 DIABETES MELLITUS WITH HYPERGLYCEMIA (3) CKD (chronic kidney disease) Code(s): N18.9 - CHRONIC KIDNEY DISEASE, UNSPECIFIED Qualifiers: Chronic kidney disease stage: unspecified stage Qualified Code(s): N18.9 - Chronic kidney disease, unspecified (4) Morbid obesity Code(s): E66.01 - MORBID (SEVERE) OBESITY DUE TO EXCESS CALORIES
--- NOTE | 2018-08-28 13:39 | PN ---
Teaching Attending Note Name of Resident: Vijaya Louis ATTENDING PHYSICIAN STATEMENT I saw and evaluated the patient. I reviewed the resident's note and discussed the case with the resident. I agree with the resident's findings and plan as documented. SUBJECTIVE: pain in buttocks . No fever or chills OBJECTIVE: NAD CV: RRR Lungs: CTAB Ext: no edema. L big toe ulcer on plantar surface with no erythema, no edema , and no discharge. SKin: gluteal area with indurated skin at infection sites, with no fluctuation. no drainage form open area ASSESSMENT AND PLAN: 52 y/o man with h/o DM , HTN, Asthma, HLP, CKD, chronic back pain,OM of L metatarsal head , recurrent skin infections especially in gluteal area who presented with gluteal pain and was found to have gluteal abscesses. 1- MRSA Gluteal abscesses: - switch to clinda 2- HHS. .A1c 15 - Increase levemir 45 BID - SSI 3- h/o Diastolic CHF: not in exacerbation .hold lasix due to JAC 4- JAC on CKD: ? AIN, vs volume depletion - dc lasix - add IVf - urine eosinophils - if no improvement, then will get US 5- Hyperkalemia: due to renal failure, resolved. 6- HTN: cardizem and norvasc for now DVT Px ASSESSMENT AND PLAN:
[2018-08-28] MEDS ORDERED: CLINDAMYCIN HCL 150 MG CAPSULE (FP) PO SCH (13:45)
[2018-08-28] MEDS: CLINDAMYCIN HCL 150 MG CAPSULE (FP) PO SCH ×2 (13:53→22:11)
[2018-08-28] MEDS: SODIUM CHLORIDE 1,000 ML IV SCH (13:54)
[2018-08-28] MEDS: LACTOBACILLUS ACIDOPHILUS 1 TABLET PO SCH (13:55)
--- NOTE | 2018-08-28 17:22 | PN ---
Addendum entered and electronically signed by Bryan Huerta, RESIDENT 08/28/18 21 :23: will check urine eosinophils for AIN Original Note: Physical Exam: SUBJECTIVE: Patient seen and examined at bedside. No acute events overnight. OBJECTIVE: Vital Signs Period Temp Pulse Resp BP Sys/Swartz Pulse Ox Last 24 Hr 96.8 F-98.7 F 77-81 20-20 130-131/7-71 97-97 GENERAL: NAD resting in bed HEAD: Normal with no signs of trauma. EYES: EOMI Sclera clear ENT: MMM NECK: Trachea midline, full range of motion, supple. LUNGS: CTAB HEART: RRR NL S1S2 ABDOMEN: Obese nondistended nontender EXTREMITIES: open ulcer left toe nonoozing no odor appreciated. Buttock: Left buttock with ~2 cm open wound nonoozing non odorous. Right buttock with coin sized induration. NEUROLOGICAL: CN 2-12 intact PSYCH: Normal mood, normal affect. Laboratory Results - last 24 hr 08/25/18 08/27/18 08/28/18 21:53 21:49 06:10 WBC RBC Hgb Hct MCV MCH MCHC RDW Plt Count MPV Absolute Neuts (auto) Neutrophils % Lymphocytes % Monocytes % Eosinophils % Basophils % Nucleated RBC % Sodium Potassium Chloride Carbon Dioxide Anion Gap BUN Creatinine Creat Clearance w eGFR POC Glucometer 238 239 Random Glucose Calcium Random Vancomycin 21.9 08/28/18 08/28/18 08/28/18 06:10 06:10 06:59 WBC 6.2 RBC 3.33 L Hgb 8.9 L Hct 27.4 L MCV 82.2 MCH 26.9 MCHC 32.7 RDW 16.6 H Plt Count 269 MPV 8.4 Absolute Neuts (auto) 3.4 Neutrophils % 55.2 Lymphocytes % 27.7 Monocytes % 9.9 Eosinophils % 6.5 H Basophils % 0.7 Nucleated RBC % 0 Sodium 136 Potassium 4.9 Chloride 108 H Carbon Dioxide 20 L Anion Gap 9 BUN 44 H Creatinine 4.1 H Creat Clearance w eGFR 15.52 POC Glucometer 249 Random Glucose 255 H Calcium 7.6 L Random Vancomycin 08/28/18 08/28/18 11:19 16:55 WBC RBC Hgb Hct MCV MCH MCHC RDW Plt Count MPV Absolute Neuts (auto) Neutrophils % Lymphocytes % Monocytes % Eosinophils % Basophils % Nucleated RBC % Sodium Potassium Chloride Carbon Dioxide Anion Gap BUN Creatinine Creat Clearance w eGFR POC Glucometer 240 237 Random Glucose Calcium Random Vancomycin Active Medications Generic Name Dose Route Start Last Admin Trade Name Freq PRN Reason Stop Dose Admin Acetaminophen 325 mg 08/25/18 14:00 08/28/18 09:10 Tylenol - PO 325 mg Q8H PRN Administration PAIN 5-10 Amlodipine Besylate 5 mg 08/26/18 10:00 08/28/18 09:12 Norvasc - PO 5 mg DAILY MARY Administration Aspirin 81 mg 08/26/18 10:00 08/28/18 09:12 Ecotrin - PO 81 mg DAILY MARY Administration Atorvastatin Calcium 40 mg 08/25/18 22:00 08/27/18 21:50 Lipitor - PO 40 mg HS MARY Administration Clindamycin HCl 300 mg 08/28/18 13:45 08/28/18 13:53 Cleocin - PO 300 mg TID MARY Administration Diltiazem HCl 240 mg 08/26/18 12:00 08/28/18 09:12 Cardizem Cd - PO 240 mg DAILY MARY Administration Heparin Sodium (Porcine) 5,000 unit 08/28/18 14:00 08/28/18 13:55 Heparin - SQ 5,000 unit TID MARY Administration Sodium Chloride 1,000 mls @ 100 mls/hr 08/28/18 13:45 08/28/18 13:54 Normal Saline - IV 100 mls/hr ASDIR MARY Administration Insulin Aspart 1 vial 08/25/18 07:00 08/28/18 11:43 Novolog Vial Sliding Scale - SQ 4 unit ACHS [facility] Administration Protocol Insulin Detemir 45 units 08/28/18 22:00 Levemir Vial SQ BID@0700,2200 [facility] Lactobacillus Acidophilus 1 tab 08/28/18 12:45 08/28/18 13:55 Bacid - PO 1 tab DAILY MARY Administration Oxycodone HCl 10 mg 08/26/18 10:45 08/28/18 09:10 Roxicodone - PO 10 mg Q8H PRN Administration PAIN 5-10 ASSESSMENT/PLAN: Patient is a 52 year old male with IDDM (noncompliant), HTN, diastolic CHF, and CKD, presents to the ED due to worsening left buttock abscess in the last month. #Nonhealing ulcer, left gluteal area -Vanc/zosyn given at the ED - Vancomycin changed to clindamycin 300 TID. Random Vanc level 21.9. -Blood cultures -, wound culture + for MRSA -Lactic acid wnl -Gentle hydration -Wound care -I.D on board -wound cx from previous admissions showed strep species and enterobater #IDDM: uncontrolled -Glu 855 --> 727 -anion gap closed, lactic acid wnl -Insulin 6 units sq, 18 units IV given at the ED -BGM q2h -ISS - Levemir increased to 45 units sq bid. #Hyperkalemia -K 6.3 --> 5.5 -Insulin 6 units sq, 18 units IV given at the ED -Iv NS -EKG: NSR, with T wave changes seen on previous EKG -will continue to monitor bmp #JAC on CKD -BUN/Cr 44/4.1 (baseline 3-3.5) -Follows up with Dr. Castle -Avoid nephrotoxic agents such as aminoglycosides, contrast agents #Diastolic CHF -Patient reported he only takes the medication when he has leg swelling, has not been taking it recently -Echo (2017): EF 53%, mild concentric LVH, Moderator band in RV, LA moderately dilated, RA mildly dilated. Mild MR, Moderate TR. RV systolic pressure elevated 50-60mmHg. Severe pulmonary HTN. Mild aortic dilatation. #HTN - Amlodipine 5mg daily -monitor BP #FEN -No Fluids -monitor electrolytes -Diabetic/sodium controlled diet #Prophylaxis -Heparin 5000units sq tid #Dispo med-surg Visit type - Emergency Visit Emergency Visit: Yes ED Registration Date: 08/24/18 Care time: The patient presented to the Emergency Department on the above date and was hospitalized for further evaluation of their emergent condition. - New Patient This patient is new to me today: No - Critical Care Critical Care patient: No - Discharge Referral Referred to [facility] Med P.C.: No
[2018-08-28] MEDS ORDERED: INSULIN (LEVEMIR) 100 UNITS/ML UNITS SQ ONE (21:04)
[2018-08-28] MEDS ORDERED: INSULIN (NOVOLOG) ASPART 100 UNITS/ML 10ML VIAL ONE (21:05)
[2018-08-28] MEDS: ATORVASTATIN CA 40 MG TABLET (FP) PO SCH (22:11)
[2018-08-28] MEDS ORDERED: PT OWN MED DRAWER 7, Y5N ONE (23:03)
[2018-08-29] MEDS: SODIUM CHLORIDE 1,000 ML IV SCH ×4 (01:07→22:28)
[2018-08-29] MEDS: INSULIN (LEVEMIR) 100 UNITS/ML UNITS SQ SCH ×2 (06:09→22:27)
[2018-08-29] MEDS: INSULIN SLIDING SCALE (NOVOLOG) 1 VIAL SQ SCH ×4 (06:10→22:27)
[2018-08-29] MEDS: CLINDAMYCIN HCL 150 MG CAPSULE (FP) PO SCH ×3 (06:11→22:26)
[2018-08-29] MEDS: HEPARIN NA (PORCINE) 5,000 UNITS/ML 1ML VIAL SQ SCH ×3 (06:12→22:26)
[2018-08-29 07:17] LABS: HEMATOCRIT 25.6 % (35.4-49); HEMOGLOBIN 8.2 GM/dL (11.7-16.9); MCH 26.2 pg (25.7-33.7); MCHC 32.1 g/dl (32.0-35.9); MEAN CELL VOLUME 81.7 fl (80-96); MEAN PLT VOLUME 8.4 fl (7.5-11.1); PLATELET COUNT 256 K/MM3 (134-434); RBC 3.13 M/mm3 (4.00-5.60); RDW 16.2 % (11.9-15.9); WHITE BLOOD COUNT 6.6 K/mm3 (4.0-10.0)
[2018-08-29 07:47] LABS: ANION GAP 8 MMOL/L (8-16); BLOOD UREA NITROGEN 46 mg/dL (7-18); CALCIUM 7.6 mg/dL (8.5-10.1); CHLORIDE 110 mmol/L (98-107); CO2 19 mmol/L (21-32); CREATININE 4.2 mg/dL (0.55-1.3); GLUCOSE,RANDOM 216 mg/dL (74-106); MAGNESIUM 1.6 mg/dL (1.8-2.4); PHOSPHOROUS 6.4 mg/dL (2.5-4.9); POTASSIUM 4.9 mmol/L (3.5-5.1); SODIUM 137 mmol/L (136-145)
[2018-08-29] MEDS ORDERED: MAGNESIUM OXIDE 400 MG TABLET (FP) PO ONE (09:00)
[2018-08-29] MEDS: LACTOBACILLUS ACIDOPHILUS 1 TABLET PO SCH (09:30)
[2018-08-29] MEDS: oxyCODONE HCL 5 MG TABLET PO PRN (09:31)
[2018-08-29] MEDS: ACETAMINOPHEN 325 MG TABLET (FP) PO PRN (09:33)
[2018-08-29] MEDS: ASPIRIN COATED 81 MG TABLET.EC PO SCH (09:34)
[2018-08-29] MEDS: amLODIPine BESYLATE 5 MG TABLET (FP) PO SCH (09:40)
[2018-08-29] MEDS ORDERED: INSULIN (NOVOLOG) ASPART 100 UNITS/ML 10ML VIAL ONE (17:31)
--- NOTE | 2018-08-29 17:39 | PN ---
Teaching Attending Note Name of Resident: Vijaya Louis ATTENDING PHYSICIAN STATEMENT I saw and evaluated the patient. I reviewed the resident's note and discussed the case with the resident. I agree with the resident's findings and plan as documented. SUBJECTIVE: No fever or chills. No GRAY , minimal pain in buttock area OBJECTIVE: NAD CV: RRR Lungs: CTAB Ext: no edema. L big toe ulcer was not examined todya SKin: gluteal area with indurated skin at infection sites, with no fluctuation. no drainage form open area ASSESSMENT AND PLAN: 52 y/o man with h/o DM , HTN, Asthma, HLP, CKD, chronic back pain,OM of L metatarsal head , recurrent skin infections especially in gluteal area who presented with gluteal pain and was found to have gluteal abscesses. 1- MRSA Gluteal abscesses: - Cont clinda . No surgical intervention 2- HHS. .A1c 15 -cont levemir 45 BID . can adjust dose further if needed. - SSI - At Dc he will be on lantus BId instead of daily and a SSI 3- h/o Diastolic CHF: not in exacerbation .hold lasix due to JAC 4- JAC on CKD: ? AIN, vs volume depletion . Us with no hydro - off lasix - Cont IVF - urine eosinophils pending - if Cr continue to increase, then will get nephro involved 5- Hyperkalemia: due to renal failure, resolved. 6- HTN: cardizem and norvasc for now DVT Px
--- NOTE | 2018-08-29 20:02 | PN ---
Physical Exam: SUBJECTIVE: Patient seen and examined at bedside. No acute events overnight. OBJECTIVE: Vital Signs Period Temp Pulse Resp BP Sys/Swartz Pulse Ox Last 24 Hr 97.4 F-98.7 F 75-96 18-20 124-148/64-78 95 GENERAL: no acute distress HEAD: Normal with no signs of trauma. EYES: EOMI Sclera clear ENT: MMM NECK: Trachea midline, full range of motion, supple. LUNGS: CTAB HEART: RRR NL S1S2 ABDOMEN: Obese nondistended nontender EXTREMITIES: open ulcer left toe nonoozing no odor appreciated. Buttock: Left buttock with ~2 cm open woundsome purulent discharge. Right buttock with coin sized induration. Examined again today 08/29/18. NEUROLOGICAL: CN 2-12 intact PSYCH: Normal mood, normal affect. Laboratory Results - last 24 hr 08/28/18 08/29/18 08/29/18 22:08 06:09 06:25 WBC RBC Hgb Hct MCV MCH MCHC RDW Plt Count MPV Sodium 137 Potassium 4.9 Chloride 110 H Carbon Dioxide 19 L Anion Gap 8 BUN 46 H Creatinine 4.2 H Creat Clearance w eGFR 15.10 POC Glucometer 237 204 Random Glucose 216 H Calcium 7.6 L Phosphorus 6.4 H Magnesium 1.6 L 08/29/18 08/29/18 08/29/18 06:25 11:58 17:15 WBC 6.6 RBC 3.13 L Hgb 8.2 L Hct 25.6 L MCV 81.7 MCH 26.2 MCHC 32.1 RDW 16.2 H Plt Count 256 MPV 8.4 Sodium Potassium Chloride Carbon Dioxide Anion Gap BUN Creatinine Creat Clearance w eGFR POC Glucometer 212 190 Random Glucose Calcium Phosphorus Magnesium Active Medications Generic Name Dose Route Start Last Admin Trade Name Freq PRN Reason Stop Dose Admin Acetaminophen 325 mg 08/25/18 14:00 08/29/18 09:33 Tylenol - PO 325 mg Q8H PRN Administration PAIN 5-10 Amlodipine Besylate 5 mg 08/26/18 10:00 08/29/18 09:40 Norvasc - PO 5 mg DAILY MARY Administration Aspirin 81 mg 08/26/18 10:00 08/29/18 09:34 Ecotrin - PO 81 mg DAILY MARY Administration Atorvastatin Calcium 40 mg 08/25/18 22:00 08/28/18 22:11 Lipitor - PO 40 mg HS MARY Administration Clindamycin HCl 300 mg 08/28/18 13:45 08/29/18 15:25 Cleocin - PO 300 mg TID MARY Administration Diltiazem HCl 240 mg 08/26/18 12:00 08/29/18 09:40 Cardizem Cd - PO 240 mg DAILY MARY Administration Heparin Sodium (Porcine) 5,000 unit 08/28/18 14:00 08/29/18 15:26 Heparin - SQ 5,000 unit TID MARY Administration Sodium Chloride 1,000 mls @ 100 mls/hr 08/28/18 13:45 08/29/18 15:26 Normal Saline - IV Not Given ASDIR MARY Insulin Aspart 1 vial 08/25/18 07:00 08/29/18 17:29 Novolog Vial Sliding Scale - SQ 2 unit ACHS MARY Administration Protocol Insulin Detemir 45 units 08/28/18 22:00 08/29/18 06:09 Levemir Vial SQ 45 unit BID@0700,2200 MARY Administration Lactobacillus Acidophilus 1 tab 08/28/18 12:45 08/29/18 09:30 Bacid - PO 1 tab DAILY MARY Administration Oxycodone HCl 10 mg 08/26/18 10:45 08/29/18 09:31 Roxicodone - PO 10 mg Q8H PRN Administration PAIN 5-10 ASSESSMENT/PLAN: Patient is a 52 year old male with IDDM (noncompliant), HTN, diastolic CHF, and CKD, presents to the ED due to worsening left buttock abscess in the last month. #Nonhealing ulcer, left gluteal area -Vanc/zosyn given at the ED - clindamycin 300 TID. Random Vanc level 21.9. -Blood cultures -, wound culture + for MRSA -Lactic acid wnl -Gentle hydration -Wound care -I.D on board -wound cx from previous admissions showed strep species and enterobater #IDDM: uncontrolled -Glu 855 --> 727 -anion gap closed, lactic acid wnl -Insulin 6 units sq, 18 units IV given at the ED -BGM q2h -ISS - Levemir increased to 45 units sq bid. #Hyperkalemia -K 6.3 --> 5.5 -Insulin 6 units sq, 18 units IV given at the ED -Iv NS -EKG: NSR, with T wave changes seen on previous EKG -will continue to monitor bmp #JAC on CKD -BUN/Cr 46/4.2 (baseline 3-3.5). Urine eosinophils pending. will get nephro involved if Cr continues to rise -Follows up with Dr. Castle -Avoid nephrotoxic agents such as aminoglycosides, contrast agents #Diastolic CHF -Patient reported he only takes the medication when he has leg swelling, has not been taking it recently -Echo (2017): EF 53%, mild concentric LVH, Moderator band in RV, LA moderately dilated, RA mildly dilated. Mild MR, Moderate TR. RV systolic pressure elevated 50-60mmHg. Severe pulmonary HTN. Mild aortic dilatation. #HTN - Amlodipine 5mg daily increased to 10 daily in light of recent high BP measurements and concomitant DM diagnosis. -monitor BP #FEN -No Fluids -monitor electrolytes -Diabetic/sodium controlled diet #Prophylaxis -Heparin 5000units sq tid #Dispo med-surg Visit type - Emergency Visit Emergency Visit: Yes ED Registration Date: 08/24/18 Care time: The patient presented to the Emergency Department on the above date and was hospitalized for further evaluation of their emergent condition. - New Patient This patient is new to me today: No - Critical Care Critical Care patient: No - Discharge Referral Referred to [facility] Med P.C.: No
[2018-08-29] MEDS: ATORVASTATIN CA 40 MG TABLET (FP) PO SCH (22:26)
[2018-08-30] MEDS: oxyCODONE HCL 5 MG TABLET PO PRN ×3 (04:35→22:56)
[2018-08-30] MEDS: ACETAMINOPHEN 325 MG TABLET (FP) PO PRN (04:37)
[2018-08-30] MEDS: INSULIN (LEVEMIR) 100 UNITS/ML UNITS SQ SCH ×2 (06:21→21:57)
[2018-08-30] MEDS: INSULIN SLIDING SCALE (NOVOLOG) 1 VIAL SQ SCH ×4 (06:22→22:02)
[2018-08-30] MEDS: HEPARIN NA (PORCINE) 5,000 UNITS/ML 1ML VIAL SQ SCH ×3 (06:22→21:57)
[2018-08-30] MEDS: CLINDAMYCIN HCL 150 MG CAPSULE (FP) PO SCH ×3 (06:22→21:57)
[2018-08-30 07:30] LABS: HEMATOCRIT 26.6 % (35.4-49); HEMOGLOBIN 8.7 GM/dL (11.7-16.9); MCH 26.8 pg (25.7-33.7); MCHC 32.8 g/dl (32.0-35.9); MEAN CELL VOLUME 81.8 fl (80-96); MEAN PLT VOLUME 8.4 fl (7.5-11.1); PLATELET COUNT 263 K/MM3 (134-434); RBC 3.25 M/mm3 (4.00-5.60); RDW 16.7 % (11.9-15.9); WHITE BLOOD COUNT 6.7 K/mm3 (4.0-10.0)
[2018-08-30 07:59] LABS: ANION GAP 6 MMOL/L (8-16); BLOOD UREA NITROGEN 45 mg/dL (7-18); CALCIUM 7.2 mg/dL (8.5-10.1); CHLORIDE 113 mmol/L (98-107); CO2 18 mmol/L (21-32); GLUCOSE,RANDOM 210 mg/dL (74-106); MAGNESIUM 1.8 mg/dL (1.8-2.4); PHOSPHOROUS 6.2 mg/dL (2.5-4.9); SODIUM 137 mmol/L (136-145)
--- NOTE | 2018-08-30 09:25 | PN ---
Teaching Attending Note Name of Resident: Bryan Huerta ATTENDING PHYSICIAN STATEMENT I saw and evaluated the patient. I reviewed the resident's note and discussed the case with the resident. I agree with the resident's findings and plan as documented. SUBJECTIVE: Patient is feeling better , no further fever OBJECTIVE: Vital Signs Temperature 97.7 F 08/30/18 05:00 Pulse Rate 77 08/30/18 05:00 Respiratory Rate 18 08/30/18 05:00 Blood Pressure 137/67 08/30/18 05:00 O2 Sat by Pulse Oximetry (%) 96 08/29/18 21:00 GENERAL: no acute distress HEAD: Normal with no signs of trauma. EYES: EOMI Sclera clear, ENT: MMM NECK: Trachea midline, full range of motion, supple. LUNGS: CTAB , HEART: RRR NL S1S2 ABDOMEN: Obese nondistended nontender EXTREMITIES: open ulcer left toe nonoozing no odor appreciated. Buttock: Left buttock with 2 cm open wound, no purulent discharge. Right buttock with coin sized induration. NEUROLOGICAL: CN 2-12 intact PSYCH: Normal mood, normal affect. CBCD WBC 6.7 K/mm3 (4.0-10.0) 08/30/18 06:30 RBC 3.25 M/mm3 (4.00-5.60) L 08/30/18 06:30 Hgb 8.7 GM/dL (11.7-16.9) L 08/30/18 06:30 Hct 26.6 % (35.4-49) L 08/30/18 06:30 MCV 81.8 fl (80-96) 08/30/18 06:30 MCHC 32.8 g/dl (32.0-35.9) 08/30/18 06:30 RDW 16.7 % (11.9-15.9) H 08/30/18 06:30 Plt Count 263 K/MM3 (134-434) 08/30/18 06:30 MPV 8.4 fl (7.5-11.1) 08/30/18 06:30 CMP Sodium 137 mmol/L (136-145) 08/30/18 06:30 Potassium 5.0 mmol/L (3.5-5.1) 08/30/18 06:30 Chloride 113 mmol/L (98-107) H 08/30/18 06:30 Carbon Dioxide 18 mmol/L (21-32) L 08/30/18 06:30 Anion Gap 6 MMOL/L (8-16) L 08/30/18 06:30 BUN 45 mg/dL (7-18) H 08/30/18 06:30 Creatinine 4.0 mg/dL (0.55-1.3) H 08/30/18 06:30 Creat Clearance w eGFR 15.97 (>60) 08/30/18 06:30 Random Glucose 210 mg/dL (74-106) H 08/30/18 06:30 Calcium 7.2 mg/dL (8.5-10.1) L 08/30/18 06:30 Total Bilirubin 0.1 mg/dL (0.2-1) L 08/26/18 08:43 AST 4 U/L (15-37) L 08/26/18 08:43 ALT 9 U/L (13-61) L 08/26/18 08:43 Alkaline Phosphatase 110 U/L (45-117) 08/26/18 08:43 Total Protein 5.6 g/dl (6.4-8.2) L 08/26/18 08:43 Albumin 1.6 g/dl (3.4-5.0) L 08/26/18 08:43 Current Medications Generic Name Dose Route Start Last Admin Trade Name Freq PRN Reason Stop Dose Admin Acetaminophen 325 mg 08/25/18 14:00 08/30/18 04:37 Tylenol - PO 325 mg Q8H PRN Administration PAIN 5-10 Amlodipine Besylate 5 mg 08/26/18 10:00 08/29/18 09:40 Norvasc - PO 5 mg DAILY MARY Administration Aspirin 81 mg 08/26/18 10:00 08/29/18 09:34 Ecotrin - PO 81 mg DAILY MARY Administration Atorvastatin Calcium 40 mg 08/25/18 22:00 08/29/18 22:26 Lipitor - PO 40 mg HS MARY Administration Clindamycin HCl 300 mg 08/28/18 13:45 08/30/18 06:22 Cleocin - PO 300 mg TID MARY Administration Diltiazem HCl 240 mg 08/26/18 12:00 08/29/18 09:40 Cardizem Cd - PO 240 mg DAILY MARY Administration Heparin Sodium (Porcine) 5,000 unit 08/28/18 14:00 08/30/18 06:22 Heparin - SQ 5,000 unit TID MARY Administration Sodium Chloride 1,000 mls @ 100 mls/hr 08/28/18 13:45 08/29/18 22:28 Normal Saline - IV 100 mls/hr ASDIR MARY Administration Insulin Aspart 1 vial 08/25/18 07:00 08/30/18 06:22 Novolog Vial Sliding Scale - SQ 4 unit ACHS MARY Administration Protocol Insulin Detemir 45 units 08/28/18 22:00 08/30/18 06:21 Levemir Vial SQ 45 unit BID@0700,2200 MARY Administration Lactobacillus Acidophilus 1 tab 08/28/18 12:45 08/29/18 09:30 Bacid - PO 1 tab DAILY MARY Administration Oxycodone HCl 10 mg 08/26/18 10:45 08/30/18 04:35 Roxicodone - PO 10 mg Q8H PRN Administration PAIN 5-10 Home Medications Medication Instructions Recorded Aspirin [ASA -] 81 mg DAILY 08/25/18 Atorvastatin Ca [Lipitor] 40 mg DAILY 08/25/18 Cholecalciferol (Vitamin D3) 50,000 units 08/25/18 [Vitamin D3] Diltiazem Cd [Cardizem Cd -] 240 mg DAILY 08/25/18 Furosemide 40 mg BID 08/25/18 Insulin Glargine,Hum.rec.anlog 80 unit SQ DAILY 08/25/18 [Basaglar Kwikpen U-100] Insulin Lispro [Humalog] 30 units TID 08/25/18 Oxycodone HCl/Acetaminophen TID PRN 08/25/18 [Oxycodone-Acetaminophen 10-325] Sodium Bicarbonate - 2 tab TID 08/25/18 Tizanidine HCl 2 mg TID 08/25/18 ASSESSMENT AND PLAN: 52 y/o man with h/o DM , HTN, Asthma, HLP, CKD, chronic back pain, OM of L metatarsal head , recurrent skin infections especially in gluteal area who presented with gluteal pain and was found to have gluteal abscesses. # MRSA: Gluteal abscesses: on Clindamycin po continue . No surgical intervention at this time. # JAC on CKD: on IVF, Us with no hydro , dc IVF. will get Nephro to see the patient , sarahix is on hold, patient is on 80mg at home. # T2DM continue Lantus, at dc he will be on lantus bid instead of daily and a SSI, A1c 15 # Hx Diastolic CHF: not in exacerbation, hold lasix due to JAC # Hyperkalemia: due to renal failure, resolved. # HTN: cardizem and norvasc continue will check his TSH m FT4 level DVT Px: Heparin sq
[2018-08-30] MEDS: ASPIRIN COATED 81 MG TABLET.EC PO SCH (09:35)
[2018-08-30] MEDS: LACTOBACILLUS ACIDOPHILUS 1 TABLET PO SCH (09:35)
[2018-08-30] MEDS: amLODIPine BESYLATE 5 MG TABLET (FP) PO SCH (09:35)
[2018-08-30] MEDS: SODIUM CHLORIDE 1,000 ML IV SCH (10:03)
[2018-08-30] MEDS ORDERED: SODIUM CHLORIDE 1,000 ML IV SCH (15:09)
--- NOTE | 2018-08-30 18:15 | PN ---
Physical Exam: SUBJECTIVE: Patient seen and examined at bedside. No acute events overnight. OBJECTIVE: Vital Signs Period Temp Pulse Resp BP Sys/Swartz Pulse Ox Last 24 Hr 97.5 F-98.6 F 70-80 18-18 132-140/57-79 96-96 GENERAL: Very pleasant, AAOx3 HEAD: Normal with no signs of trauma. EYES: EOMI Sclera clear ENT: MMM NECK: Trachea midline, full range of motion, supple. LUNGS: Clear to auscultation b/l. Good inspiratory effort HEART: RRR NL S1S2 ABDOMEN: Obese nondistended nontender EXTREMITIES: open ulcer left toe nonoozing no odor appreciated. Buttock: Left buttock with ~2 cm open wound. Right buttock with coin sized induration. Examined again today 08/30/18. NEUROLOGICAL: CN 2-12 intact PSYCH: Normal mood, normal affect. Laboratory Results - last 24 hr 08/29/18 08/30/18 08/30/18 22:19 06:16 06:30 WBC 6.7 RBC 3.25 L Hgb 8.7 L Hct 26.6 L MCV 81.8 MCH 26.8 MCHC 32.8 RDW 16.7 H Plt Count 263 MPV 8.4 Sodium Potassium Chloride Carbon Dioxide Anion Gap BUN Creatinine Creat Clearance w eGFR POC Glucometer 167 204 Random Glucose Calcium Phosphorus Magnesium 08/30/18 08/30/18 08/30/18 06:30 11:41 16:29 WBC RBC Hgb Hct MCV MCH MCHC RDW Plt Count MPV Sodium 137 Potassium 5.0 Chloride 113 H Carbon Dioxide 18 L Anion Gap 6 L BUN 45 H Creatinine 4.0 H Creat Clearance w eGFR 15.97 POC Glucometer 225 180 Random Glucose 210 H Calcium 7.2 L Phosphorus 6.2 H Magnesium 1.8 Active Medications Generic Name Dose Route Start Last Admin Trade Name Freq PRN Reason Stop Dose Admin Acetaminophen 325 mg 08/25/18 14:00 08/30/18 04:37 Tylenol - PO 325 mg Q8H PRN Administration PAIN 5-10 Amlodipine Besylate 5 mg 08/26/18 10:00 08/30/18 09:35 Norvasc - PO 5 mg DAILY MARY Administration Aspirin 81 mg 08/26/18 10:00 08/30/18 09:35 Ecotrin - PO 81 mg DAILY MARY Administration Atorvastatin Calcium 40 mg 08/25/18 22:00 08/29/18 22:26 Lipitor - PO 40 mg HS MARY Administration Clindamycin HCl 300 mg 08/28/18 13:45 08/30/18 14:03 Cleocin - PO 300 mg TID MARY Administration Diltiazem HCl 240 mg 08/26/18 12:00 08/30/18 09:35 Cardizem Cd - PO 240 mg DAILY MARY Administration Heparin Sodium (Porcine) 5,000 unit 08/28/18 14:00 08/30/18 14:03 Heparin - SQ 5,000 unit TID MARY Administration Sodium Chloride 1,000 mls @ 125 mls/hr 08/30/18 15:09 08/30/18 16:15 Normal Saline - IV 125 mls/hr ASDIR MARY Administration Insulin Aspart 1 vial 08/25/18 07:00 08/30/18 17:14 Novolog Vial Sliding Scale - SQ 2 unit ACHS MARY Administration Protocol Insulin Detemir 45 units 08/28/18 22:00 08/30/18 06:21 Levemir Vial SQ 45 unit BID@0700,2200 MARY Administration Lactobacillus Acidophilus 1 tab 08/28/18 12:45 08/30/18 09:35 Bacid - PO 1 tab DAILY MARY Administration Oxycodone HCl 10 mg 08/26/18 10:45 08/30/18 12:20 Roxicodone - PO 10 mg Q8H PRN Administration PAIN 5-10 ASSESSMENT/PLAN: Patient is a 52 year old male with IDDM (noncompliant), HTN, diastolic CHF, and CKD, presents to the ED due to worsening left buttock abscess in the last month. #Nonhealing ulcer, left gluteal area -Vanc/zosyn given at the ED - clindamycin 300 TID. Random Vanc level 21.9. -Blood cultures -, wound culture + for MRSA -Lactic acid wnl -Gentle hydration -Wound care -I.D on board -wound cx from previous admissions showed strep species and enterobater #IDDM: uncontrolled -Glu 855 --> 727 -anion gap closed, lactic acid wnl -Insulin 6 units sq, 18 units IV given at the ED -BGM q2h -ISS - Levemir increased to 45 units sq bid. #JAC on CKD -BUN/Cr 45/4.0 (baseline 3-3.5). Urine eosinophils pending. Cr improving. Will continue to trend. 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 -Avoid nephrotoxic agents such as aminoglycosides, contrast agents #Diastolic CHF -Patient reported he only takes the medication when he has leg swelling, has not been taking it recently -Echo (2017): EF 53%, mild concentric LVH, Moderator band in RV, LA moderately dilated, RA mildly dilated. Mild MR, Moderate TR. RV systolic pressure elevated 50-60mmHg. Severe pulmonary HTN. Mild aortic dilatation. #HTN - Amlodipine 5mg daily increased to 10 daily in light of recent high BP measurements and concomitant DM diagnosis. -monitor BP #FEN -No Fluids -monitor electrolytes -Diabetic/sodium controlled diet #Prophylaxis -Heparin 5000units sq tid #Dispo med-surg Visit type - Emergency Visit Emergency Visit: Yes ED Registration Date: 08/24/18 Care time: The patient presented to the Emergency Department on the above date and was hospitalized for further evaluation of their emergent condition. - New Patient This patient is new to me today: No - Critical Care Critical Care patient: No - Discharge Referral Referred to [facility] Med P.C.: No
[2018-08-30] MEDS: ATORVASTATIN CA 40 MG TABLET (FP) PO SCH (21:57)
[2018-08-31] MEDS: CLINDAMYCIN HCL 150 MG CAPSULE (FP) PO SCH ×3 (05:34→21:11)
[2018-08-31] MEDS: HEPARIN NA (PORCINE) 5,000 UNITS/ML 1ML VIAL SQ SCH ×3 (05:34→21:12)
[2018-08-31] MEDS: INSULIN SLIDING SCALE (NOVOLOG) 1 VIAL SQ SCH ×4 (06:24→21:17)
[2018-08-31] MEDS: INSULIN (LEVEMIR) 100 UNITS/ML UNITS SQ SCH ×2 (06:25→21:16)
[2018-08-31 07:57] LABS: HEMOGLOBIN 9.9 GM/dL (11.7-16.9); MCH 26.1 pg (25.7-33.7); MCHC 31.9 g/dl (32.0-35.9); MEAN CELL VOLUME 81.9 fl (80-96); MEAN PLT VOLUME 8.3 fl (7.5-11.1); PLATELET COUNT 270 K/MM3 (134-434); RBC 3.79 M/mm3 (4.00-5.60); RDW 16.8 % (11.9-15.9); WHITE BLOOD COUNT 6.2 K/mm3 (4.0-10.0)
[2018-08-31 08:37] LABS: ANION GAP 6 MMOL/L (8-16); BLOOD UREA NITROGEN 49 mg/dL (7-18); CALCIUM 7.7 mg/dL (8.5-10.1); CHLORIDE 113 mmol/L (98-107); CO2 19 mmol/L (21-32); GLUCOSE,RANDOM 172 mg/dL (74-106); MAGNESIUM 1.9 mg/dL (1.8-2.4); PHOSPHOROUS 6.4 mg/dL (2.5-4.9); POTASSIUM 4.9 mmol/L (3.5-5.1); SODIUM 138 mmol/L (136-145)
[2018-08-31] MEDS: LACTOBACILLUS ACIDOPHILUS 1 TABLET PO SCH (09:53)
[2018-08-31] MEDS: ASPIRIN COATED 81 MG TABLET.EC PO SCH (09:53)
[2018-08-31] MEDS: amLODIPine BESYLATE 5 MG TABLET (FP) PO SCH (09:53)
[2018-08-31] MEDS: oxyCODONE HCL 5 MG TABLET PO PRN (13:20)
--- NOTE | 2018-08-31 13:22 | CONSULT ---
Consult Consult Specialty:: Nephrology Reason for Consultation:: CKD - History of Present Illness Chief Complaint: left buttocks abscess History of Present Illness: Pt is a 52 year old male with pmhx of CKD, HTN, CHF, and morbid obesity who presents with a left buttocks abscess. He was admitted and treated with abx. He developed worsening of his renal function. He was started on fluids with no improvement, then the rate was increased. He complains of generalized edema. He has gained about 20 pounds since admission. He denies shortness of breath. He was taking lasix 80 mg at home. He feels that the wound is getting better. He is uncomfortable from the edema which he feels has built up to his abdominal wall. He denies dysuria or hematuria. - History Source History Provided By: Patient, Medical Record - Past Medical History Cardio/Vascular: Yes: HTN, Hyperlipdemia Pulmonary: Yes: Asthma, Other (chronic cough (nonproductive) x1 year) Gastrointestinal: Yes: Other (obesity) Renal/: Yes: Renal Inusuff (CKD stage 4 baseline Creatinine 1.8), Other ( urinary obstruction) Infectious Disease: Yes: MRSA (right buttock abscess several years ago), Other ( osteomyelitis) Endocrine: Yes: Diabetes Mellitus, Other (DM with neuropathy) - Alcohol/Substance Use Hx Alcohol Use: No History of Substance Use: reports: None - Smoking History Smoking history: Never smoked Have you smoked in the past 12 months: No Aproximately how many cigarettes per day: 0 - Social History Usual Living Arrangement: With Child ADL: 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 History of Recent Travel: No Home Medications - Allergies Allergies/Adverse Reactions: Allergies Allergy/AdvReac Type Severity Reaction Status Date / Time No Known Allergies Allergy Verified 08/24/18 19:49 - Home Medications Home Medications: Ambulatory Orders Aspirin [ASA -] 81 mg DAILY 08/25/18 Atorvastatin Ca [Lipitor] 40 mg DAILY 08/25/18 Cholecalciferol (Vitamin D3) [Vitamin D3] 50,000 units 08/25/18 Diltiazem Cd [Cardizem Cd -] 240 mg DAILY 08/25/18 Furosemide 40 mg BID 08/25/18 Insulin Glargine,Hum.rec.anlog [Basaglar Kwikpen U-100] 80 unit SQ DAILY Insulin Lispro [Humalog] 30 units TID 08/25/18 Oxycodone HCl/Acetaminophen [Oxycodone-Acetaminophen 10-325] TID PRN 08/25/18 Sodium Bicarbonate - 2 tab TID 08/25/18 Tizanidine HCl 2 mg TID 08/25/18 Family Disease History - Family Disease History Family Disease History: Diabetes: Father ( 50s cycling accident), Other: Mother (alive HTN), Sister (healthy and living) Review of Systems - Review of Systems Constitutional: reports: Malaise. denies: Chills Eyes: reports: No Symptoms HENT: reports: No Symptoms Neck: reports: No Symptoms Cardiovascular: reports: Edema Respiratory: reports: SOB on Exertion Gastrointestinal: reports: No Symptoms Genitourinary: reports: No Symptoms Musculoskeletal: reports: No Symptoms Integumentary: reports: Other (see hpi) Endocrine: reports: No Symptoms Hematology/Lymphatic: reports: No Symptoms Psychiatric: reports: No Symptoms Physical Exam Vital Signs: Vital Signs Temperature 98.2 F 08/31/18 09:56 Pulse Rate 79 08/31/18 09:56 Respiratory Rate 20 08/31/18 09:56 Blood Pressure 147/77 08/31/18 09:56 O2 Sat by Pulse Oximetry (%) 98 08/31/18 09:00 Constitutional: Yes: Calm Eyes: Yes: Conjunctiva Clear HENT: Yes: Atraumatic Neck: Yes: Supple Cardiovascular: Yes: S1, S2 Respiratory: Yes: Rhonchi Gastrointestinal: Yes: Soft, Abdomen, Obese Renal/: Yes: WNL Musculoskeletal: Yes: WNL Edema: Yes Edema: LLE: 2+, RLE: 2+ Wound/Incision: Yes: Dressing Dry and Intact Neurological: Yes: Oriented Psychiatric: Yes: Oriented Labs: CBC, BMP 08/31/18 06:15 08/31/18 06:15 Laboratory Tests 01/10/18 01/11/18 01/11/18 18:00 06:40 21:20 Hgb Potassium Creatinine 3.1 H 3.4 H 3.6 H Urine Protein Urine Blood Random Vancomycin 01/12/18 08/24/18 08/25/18 06:40 20:00 00:05 Hgb Potassium 5.1 Creatinine 3.7 H 3.5 H Urine Protein 3+ H Urine Blood Negative Random Vancomycin 0308/25/18 08/26/18 00:05 05:30 08:43 Hgb Potassium Creatinine 3.2 H 3.2 H 3.3 H Urine Protein Urine Blood Random Vancomycin 08/27/18 08/27/18 08/28/18 05:15 05:15 06:10 Hgb Potassium Creatinine 3.7 H Urine Protein Urine Blood Random Vancomycin 18.6 21.9 08/28/18 08/29/18 08/30/18 06:10 06:25 06:30 Hgb 8.7 L Potassium Creatinine 4.1 H 4.2 H Urine Protein Urine Blood Random Vancomycin 08/30/18 08/31/18 08/31/18 06:30 06:15 06:15 Hgb 9.9 L Potassium Creatinine 4.0 H 4.0 H Urine Protein Urine Blood Random Vancomycin Imaging - Results Ultrasound: Report Reviewed Problem List - Problems (1) Abscess Code(s): L02.91 - CUTANEOUS ABSCESS, UNSPECIFIED (2) Acute kidney injury superimposed on CKD Code(s): N17.9 - ACUTE KIDNEY FAILURE, UNSPECIFIED; N18.9 - CHRONIC KIDNEY DISEASE, UNSPECIFIED (3) CHF (congestive heart failure) Code(s): I50.9 - HEART FAILURE, UNSPECIFIED (4) CKD (chronic kidney disease) Code(s): N18.9 - CHRONIC KIDNEY DISEASE, UNSPECIFIED Qualifiers: Chronic kidney disease stage: unspecified stage Qualified Code(s): N18.9 - Chronic kidney disease, unspecified (5) Morbid obesity Code(s): E66.01 - MORBID (SEVERE) OBESITY DUE TO EXCESS CALORIES Assessment/Plan Current Medications Generic Name Dose Route Start Last Admin Trade Name Freq PRN Reason Stop Dose Admin Acetaminophen 325 mg 08/25/18 14:00 08/30/18 04:37 Tylenol - PO 325 mg Q8H PRN Administration PAIN 5-10 Amlodipine Besylate 5 mg 08/26/18 10:00 08/31/18 09:53 Norvasc - PO 5 mg DAILY MARY Administration Aspirin 81 mg 08/26/18 10:00 08/31/18 09:53 Ecotrin - PO 81 mg DAILY MARY Administration Atorvastatin Calcium 40 mg 08/25/18 22:00 08/30/18 21:57 Lipitor - PO 40 mg HS MARY Administration Clindamycin HCl 300 mg 08/28/18 13:45 03/14/19 12:59 Cleocin - PO 300 mg TID MARY Administration Diltiazem HCl 240 mg 08/26/18 12:00 08/31/18 09:53 Cardizem Cd - PO 240 mg DAILY MARY Administration Heparin Sodium (Porcine) 5,000 unit 08/28/18 14:00 08/31/18 12:59 Heparin - SQ 5,000 unit TID MARY Administration Sodium Chloride 1,000 mls @ 125 mls/hr 08/30/18 15:09 08/30/18 16:15 Normal Saline - IV 125 mls/hr ASDIR MARY Administration Insulin Aspart 1 vial 08/25/18 07:00 08/31/18 11:34 Novolog Vial Sliding Scale - SQ 2 unit ACHS MARY Administration Protocol Insulin Detemir 45 units 08/28/18 22:00 08/31/18 06:25 Levemir Vial SQ 45 unit BID@0700,2200 MARY Administration Lactobacillus Acidophilus 1 tab 08/28/18 12:45 08/31/18 09:53 Bacid - PO 1 tab DAILY MARY Administration Oxycodone HCl 10 mg 08/26/18 10:45 08/31/18 13:20 Roxicodone - PO 10 mg Q8H PRN Administration PAIN 5-10 Selected Entries 08/25/18 08/25/18 08/31/18 10:43 10:45 06:00 Weight 328 lb 328 lb 345 lb 14.4 oz Impression 1. CKD 2. CHF 3. hx of DFU 4. hx of osteomyelitis 5. hx hyperkalemia 6. DM 7. HTN 8. obesity 9. anemia 10. hx of urinary obstruction/high post void residual 11. nephrotic range proteinuria 12. gluteal abscess 13. fluid overload Plan - d/c fluids - will give a dose of lasix - repeat labs in am - renal ultrasound reviewed - chart reviewed - repeat labs in am - check daily weights - discussed plan with pt - renal diet - recommend weight loss Dr Tong
[2018-08-31] MEDS ORDERED: FUROSEMIDE 40 MG/4 ML INJECTABLE VIAL IVPUSH ONE (13:37)
--- NOTE | 2018-08-31 15:08 | PN ---
Physical Exam: SUBJECTIVE: Patient seen and examined at bedside. No acute events overnight. OBJECTIVE: Vital Signs Period Temp Pulse Resp BP Sys/Swartz Pulse Ox Last 24 Hr 97.8 F-98.5 F 66-79 18-20 114-147/59-77 96-98 GENERAL: NAD HEAD: Atraumatic/Normocephalic EYES: EOMI Sclera clear ENT: MMM LUNGS: CTAB HEART: RRR NL S1S2 ABDOMEN: Obese nondistended nontender EXTREMITIES: open ulcer left toe nonoozing no odor appreciated. Buttock: Left buttock with ~2 cm open wound. Right buttock with coin sized induration. Examined again today 08/31/18. NEUROLOGICAL: CN 2-12 intact PSYCH: Normal mood, normal affect. Laboratory Results - last 24 hr 08/28/18 08/30/18 08/30/18 20:00 16:29 21:59 WBC RBC Hgb Hct MCV MCH MCHC RDW Plt Count MPV Sodium Potassium Chloride Carbon Dioxide Anion Gap BUN Creatinine Creat Clearance w eGFR POC Glucometer 180 154 Random Glucose Calcium Phosphorus Magnesium TSH Free T4 Urine Eosinophils None seen 08/31/18 08/31/18 08/31/18 05:37 06:15 06:15 WBC 6.2 RBC 3.79 L Hgb 9.9 L Hct 31.0 L D MCV 81.9 MCH 26.1 MCHC 31.9 L RDW 16.8 H Plt Count 270 MPV 8.3 Sodium 138 Potassium 4.9 Chloride 113 H Carbon Dioxide 19 L Anion Gap 6 L BUN 49 H Creatinine 4.0 H Creat Clearance w eGFR 15.97 POC Glucometer 167 Random Glucose 172 H Calcium 7.7 L Phosphorus 6.4 H Magnesium 1.9 TSH 9.14 H D Free T4 0.86 Urine Eosinophils 08/31/18 08/31/18 06:15 11:26 WBC RBC Hgb Hct MCV MCH MCHC RDW Plt Count MPV Sodium Potassium Chloride Carbon Dioxide Anion Gap BUN Creatinine Creat Clearance w eGFR POC Glucometer 154 Random Glucose Calcium Phosphorus Magnesium TSH Free T4 Cancelled Urine Eosinophils Active Medications Generic Name Dose Route Start Last Admin Trade Name Freq PRN Reason Stop Dose Admin Acetaminophen 325 mg 08/25/18 14:00 08/30/18 04:37 Tylenol - PO 325 mg Q8H PRN Administration PAIN 5-10 Amlodipine Besylate 5 mg 08/26/18 10:00 08/31/18 09:53 Norvasc - PO 5 mg DAILY MARY Administration Aspirin 81 mg 08/26/18 10:00 08/31/18 09:53 Ecotrin - PO 81 mg DAILY MARY Administration Atorvastatin Calcium 40 mg 08/25/18 22:00 08/30/18 21:57 Lipitor - PO 40 mg HS MARY Administration Clindamycin HCl 300 mg 08/28/18 13:45 08/31/18 12:59 Cleocin - PO 300 mg TID MARY Administration Diltiazem HCl 240 mg 08/26/18 12:00 08/31/18 09:53 Cardizem Cd - PO 240 mg DAILY MARY Administration Heparin Sodium (Porcine) 5,000 unit 08/28/18 14:00 08/31/18 12:59 Heparin - SQ 5,000 unit TID MARY Administration Insulin Aspart 1 vial 08/25/18 07:00 08/31/18 11:34 Novolog Vial Sliding Scale - SQ 2 unit ACHS MARY Administration Protocol Insulin Detemir 45 units 08/28/18 22:00 08/31/18 06:25 Levemir Vial SQ 45 unit BID@0700,2200 MARY Administration Lactobacillus Acidophilus 1 tab 08/28/18 12:45 08/31/18 09:53 Bacid - PO 1 tab DAILY MARY Administration ASSESSMENT/PLAN: Patient is a 52 year old male with IDDM (noncompliant), HTN, diastolic CHF, and CKD, presents to the ED due to worsening left buttock abscess in the last month. #Nonhealing ulcer, left gluteal area -Vanc/zosyn given at the ED - Clindamycin 300 TID. Random Vanc level 21.9. -Blood cultures -, wound culture + for MRSA -Lactic acid wnl -Gentle hydration -Wound care -I.D on board -wound cx from previous admissions showed strep species and enterobater #IDDM: uncontrolled -Glu 855 --> 727 -anion gap closed, lactic acid wnl -Insulin 6 units sq, 18 units IV given at the ED -BGM q2h -ISS - Levemir increased to 45 units sq bid. #JAC on CKD -BUN/Cr 45/4.0 (baseline 3-3.5). Urine eosinophils NEGATIVE -Avoid nephrotoxic agents such as aminoglycosides, contrast agents -Dr Tong on board. Lasix administered today. Fluids stopped. Gained about 20 pounds since admission #Diastolic CHF -Patient reported he only takes the medication when he has leg swelling, has not been taking it recently -Echo (2017): EF 53%, mild concentric LVH, Moderator band in RV, LA moderately dilated, RA mildly dilated. Mild MR, Moderate TR. RV systolic pressure elevated 50-60mmHg. Severe pulmonary HTN. Mild aortic dilatation. #HTN - Amlodipine 10 daily in light of recent high BP measurements and concomitant DM diagnosis. -monitor BP #FEN -No Fluids -monitor electrolytes -Diabetic/sodium controlled diet #Prophylaxis -Heparin 5000units sq tid #Dispo med-surg Visit type - Emergency Visit Emergency Visit: Yes ED Registration Date: 08/24/18 Care time: The patient presented to the Emergency Department on the above date and was hospitalized for further evaluation of their emergent condition. - New Patient This patient is new to me today: No - Critical Care Critical Care patient: No - Discharge Referral Referred to [facility] Med P.C.: No
--- NOTE | 2018-08-31 20:50 | PN ---
Teaching Attending Note Name of Resident: Bryan Huerta ATTENDING PHYSICIAN STATEMENT I saw and evaluated the patient. I reviewed the resident's note and discussed the case with the resident. I agree with the resident's findings and plan as documented. SUBJECTIVE: patient is c/o swelling of lower extremities. OBJECTIVE: Vital Signs Temperature 98.4 F 08/31/18 17:27 Pulse Rate 78 08/31/18 17:27 Respiratory Rate 18 08/31/18 17:27 Blood Pressure 162/78 08/31/18 17:27 O2 Sat by Pulse Oximetry (%) 98 08/31/18 09:00 GENERAL: no acute distress HEAD: Normal with no signs of trauma. EYES: EOMI Sclera clear, ENT: MMM NECK: Trachea midline, full range of motion, supple. LUNGS: CTAB ,HEART: RRR NL S1S2 ABDOMEN: large abdomen. Nd,NT, EXTREMITIES: open ulcer left toe. non pitting edema Buttock: Left buttock with 2 cm open wound, no further discharge. Right buttock coin sized closed wound. NEUROLOGICAL: CN 2-12 intact PSYCH: Normal mood, normal affect. CBCD WBC 6.2 K/mm3 (4.0-10.0) 08/31/18 06:15 RBC 3.79 M/mm3 (4.00-5.60) L 08/31/18 06:15 Hgb 9.9 GM/dL (11.7-16.9) L 08/31/18 06:15 Hct 31.0 % (35.4-49) L D 08/31/18 06:15 MCV 81.9 fl (80-96) 08/31/18 06:15 MCHC 31.9 g/dl (32.0-35.9) L 08/31/18 06:15 RDW 16.8 % (11.9-15.9) H 08/31/18 06:15 Plt Count 270 K/MM3 (134-434) 08/31/18 06:15 MPV 8.3 fl (7.5-11.1) 08/31/18 06:15 CMP Sodium 138 mmol/L (136-145) 08/31/18 06:15 Potassium 4.9 mmol/L (3.5-5.1) 08/31/18 06:15 Chloride 113 mmol/L (98-107) H 08/31/18 06:15 Carbon Dioxide 19 mmol/L (21-32) L 08/31/18 06:15 Anion Gap 6 MMOL/L (8-16) L 08/31/18 06:15 BUN 49 mg/dL (7-18) H 08/31/18 06:15 Creatinine 4.0 mg/dL (0.55-1.3) H 08/31/18 06:15 Creat Clearance w eGFR 15.97 (>60) 08/31/18 06:15 Random Glucose 172 mg/dL (74-106) H 08/31/18 06:15 Calcium 7.7 mg/dL (8.5-10.1) L 08/31/18 06:15 Total Bilirubin 0.1 mg/dL (0.2-1) L 08/26/18 08:43 AST 4 U/L (15-37) L 08/26/18 08:43 ALT 9 U/L (13-61) L 08/26/18 08:43 Alkaline Phosphatase 110 U/L (45-117) 08/26/18 08:43 Total Protein 5.6 g/dl (6.4-8.2) L 08/26/18 08:43 Albumin 1.6 g/dl (3.4-5.0) L 08/26/18 08:43 Current Medications Generic Name Dose Route Start Last Admin Trade Name Freq PRN Reason Stop Dose Admin Acetaminophen 325 mg 08/25/18 14:00 08/30/18 04:37 Tylenol - PO 325 mg Q8H PRN Administration PAIN 5-10 Amlodipine Besylate 10 mg 08/31/18 20:05 Norvasc - PO DAILY MARY Aspirin 81 mg 08/26/18 10:00 08/31/18 09:53 Ecotrin - PO 81 mg DAILY MARY Administration Atorvastatin Calcium 40 mg 08/25/18 22:00 08/30/18 21:57 Lipitor - PO 40 mg HS MARY Administration Clindamycin HCl 300 mg 08/28/18 13:45 08/31/18 12:59 Cleocin - PO 300 mg TID MARY Administration Diltiazem HCl 240 mg 08/26/18 12:00 08/31/18 09:53 Cardizem Cd - PO 240 mg DAILY MARY Administration Heparin Sodium (Porcine) 5,000 unit 08/28/18 14:00 08/31/18 12:59 Heparin - SQ 5,000 unit TID MARY Administration Insulin Aspart 1 vial 08/25/18 07:00 08/31/18 17:23 Novolog Vial Sliding Scale - SQ Not Given ACHS [facility] Protocol Insulin Detemir 45 units 08/28/18 22:00 08/31/18 06:25 Levemir Vial SQ 45 unit BID@0700,2200 MARY Administration Lactobacillus Acidophilus 1 tab 08/28/18 12:45 08/31/18 09:53 Bacid - PO 1 tab DAILY MARY Administration Oxycodone HCl 10 mg 08/31/18 19:46 Roxicodone - PO Q8H PRN PAIN LEVEL 7 - 10 Home Medications Medication Instructions Recorded Aspirin [ASA -] 81 mg DAILY 08/25/18 Atorvastatin Ca [Lipitor] 40 mg DAILY 08/25/18 Cholecalciferol (Vitamin D3) 50,000 units PO WEEKLY 08/25/18 [Vitamin D3] Diltiazem Cd [Cardizem Cd -] 240 mg DAILY 08/25/18 Furosemide 40 mg BID 08/25/18 Insulin Glargine,Hum.rec.anlog 80 unit SQ DAILY 08/25/18 [Basaglar Kwikpen U-100] Insulin Lispro [Humalog] 30 units TID 08/25/18 Oxycodone HCl/Acetaminophen 1 tablet PO TID PRN 08/25/18 [Oxycodone-Acetaminophen 10-325] Sodium Bicarbonate - 2 tab TID 08/25/18 Tizanidine HCl 2 mg TID 08/25/18 Laboratory Tests 08/31/18 06:15 TSH 9.14 H D Free T4 0.86 ASSESSMENT AND PLAN: 52 y/o man with h/o DM , HTN, Asthma, HLP, CKD, chronic back pain,OM of L metatarsal head , recurrent skin infections especially in gluteal area who presented with gluteal pain and was found to have gluteal abscesses. # MRSA Gluteal abscesses: on clindamycin continue . No surgical intervention needed since drained. # JAC on CKD:nephro is on the case , ordered a dose of Lasix 40mg iv x 1 per nephro , ivf discontinued. continue to monitor # T2DM continue Lantus, At [place] he will be on lantus bid instead of daily and a SSI # Hx of Diastolic CHF: not in exacerbation # Hyperkalemia: due to renal failure, will monitor # HTN: cardizem and norvasc continue # Elevated TSH, with normal thyroid , subclinical hypothyroidism. will get curtain cleaner to see the patient. DVT Px: heparin
[2018-08-31] MEDS: ATORVASTATIN CA 40 MG TABLET (FP) PO SCH (21:12)
[2018-09-01] MEDS: CLINDAMYCIN HCL 150 MG CAPSULE (FP) PO SCH ×3 (05:15→22:17)
[2018-09-01] MEDS: HEPARIN NA (PORCINE) 5,000 UNITS/ML 1ML VIAL SQ SCH ×3 (05:15→22:19)
[2018-09-01] MEDS: INSULIN SLIDING SCALE (NOVOLOG) 1 VIAL SQ SCH ×4 (06:07→22:21)
[2018-09-01] MEDS: INSULIN (LEVEMIR) 100 UNITS/ML UNITS SQ SCH ×2 (06:07→22:21)
[2018-09-01 07:06] LABS: HEMATOCRIT 27.4 % (35.4-49); MCH 26.9 pg (25.7-33.7); MCHC 32.8 g/dl (32.0-35.9); MEAN CELL VOLUME 81.8 fl (80-96); MEAN PLT VOLUME 8.2 fl (7.5-11.1); PLATELET COUNT 275 K/MM3 (134-434); RBC 3.35 M/mm3 (4.00-5.60); RDW 16.8 % (11.9-15.9); WHITE BLOOD COUNT 6.8 K/mm3 (4.0-10.0)
[2018-09-01 07:32] LABS: ALK PHOS 110 U/L (45-117); ANION GAP 7 MMOL/L (8-16); BILIRUBIN,TOTAL 0.2 mg/dL (0.2-1); BLOOD UREA NITROGEN 47 mg/dL (7-18); CALCIUM 7.8 mg/dL (8.5-10.1); CHLORIDE 114 mmol/L (98-107); CO2 17 mmol/L (21-32); CREATININE 3.9 mg/dL (0.55-1.3); GLUCOSE,RANDOM 121 mg/dL (74-106); MAGNESIUM 1.8 mg/dL (1.8-2.4); PHOSPHOROUS 6.1 mg/dL (2.5-4.9); SGOT/AST 10 U/L (15-37); SGPT/ALT 16 U/L (13-61); SODIUM 138 mmol/L (136-145); TOT PROT 6.2 g/dl (6.4-8.2)
[2018-09-01] MEDS: LACTOBACILLUS ACIDOPHILUS 1 TABLET PO SCH (09:14)
[2018-09-01] MEDS: ASPIRIN COATED 81 MG TABLET.EC PO SCH (09:15)
[2018-09-01] MEDS: amLODIPine BESYLATE 5 MG TABLET (FP) PO SCH (09:17)
[2018-09-01] MEDS: oxyCODONE HCL 5 MG TABLET PO PRN ×2 (13:09→22:17)
--- NOTE | 2018-09-01 14:33 | PN ---
Physical Exam: SUBJECTIVE: Patient seen and examined at bedside. No acute events overnight. OBJECTIVE: Vital Signs Period Temp Pulse Resp BP Sys/Swartz Pulse Ox Last 24 Hr 98.3 F-98.5 F 71-78 18-20 126-162/50-82 96-96 GENERAL: No acute distress HEAD: Atraumatic/Normocephalic EYES: EOMI Sclera clear ENT: MMM LUNGS: CTAB HEART: rrr nl s1s2 ABDOMEN: Obese NDNT EXTREMITIES: open ulcer left toe nonoozing no odor appreciated. Buttock: Left buttock with ~2 cm open wound. Right buttock with coin sized induration. Examined again today 09/01/18. NEUROLOGICAL: CN 2-12 intact PSYCH: Normal mood, normal affect Laboratory Results - last 24 hr 08/31/18 08/31/18 09/01/18 17:21 21:15 05:17 WBC RBC Hgb Hct MCV MCH MCHC RDW Plt Count MPV Sodium Potassium Chloride Carbon Dioxide Anion Gap BUN Creatinine Creat Clearance w eGFR POC Glucometer 135 199 133 Random Glucose Calcium Phosphorus Magnesium Total Bilirubin AST ALT Alkaline Phosphatase Total Protein Albumin 09/01/18 09/01/18 09/01/18 06:30 06:30 12:07 WBC 6.8 RBC 3.35 L Hgb 9.0 L Hct 27.4 L MCV 81.8 MCH 26.9 MCHC 32.8 RDW 16.8 H Plt Count 275 MPV 8.2 Sodium 138 Potassium 5.0 Chloride 114 H Carbon Dioxide 17 L Anion Gap 7 L BUN 47 H Creatinine 3.9 H Creat Clearance w eGFR 16.45 POC Glucometer 130 Random Glucose 121 H Calcium 7.8 L Phosphorus 6.1 H Magnesium 1.8 Total Bilirubin 0.2 AST 10 L ALT 16 Alkaline Phosphatase 110 Total Protein 6.2 L Albumin 2.0 L Active Medications Generic Name Dose Route Start Last Admin Trade Name Freq PRN Reason Stop Dose Admin Acetaminophen 325 mg 08/25/18 14:00 08/30/18 04:37 Tylenol - PO 325 mg Q8H PRN Administration PAIN 5-10 Amlodipine Besylate 10 mg 08/31/18 20:05 09/01/18 09:17 Norvasc - PO 10 mg DAILY MARY Administration Aspirin 81 mg 08/26/18 10:00 09/01/18 09:15 Ecotrin - PO 81 mg DAILY MARY Administration Atorvastatin Calcium 40 mg 08/25/18 22:00 08/31/18 21:12 Lipitor - PO 40 mg HS MARY Administration Clindamycin HCl 300 mg 08/28/18 13:45 09/01/18 13:06 Cleocin - PO 300 mg TID MARY Administration Diltiazem HCl 240 mg 08/26/18 12:00 09/01/18 09:15 Cardizem Cd - PO 240 mg DAILY MARY Administration Heparin Sodium (Porcine) 5,000 unit 08/28/18 14:00 09/01/18 13:05 Heparin - SQ 5,000 unit TID MARY Administration Insulin Aspart 1 vial 08/25/18 07:00 09/01/18 12:14 Novolog Vial Sliding Scale - SQ Not Given ACHS [facility] Protocol Insulin Detemir 45 units 08/28/18 22:00 09/01/18 06:07 Levemir Vial SQ 45 unit BID@0700,2200 MARY Administration Lactobacillus Acidophilus 1 tab 08/28/18 12:45 09/01/18 09:14 Bacid - PO 1 tab DAILY MARY Administration Oxycodone HCl 10 mg 08/31/18 19:46 09/01/18 13:09 Roxicodone - PO 10 mg Q8H PRN Administration PAIN LEVEL 7 - 10 ASSESSMENT/PLAN: Patient is a 52 year old male with IDDM (noncompliant), HTN, diastolic CHF, and CKD, presents to the ED due to worsening left buttock abscess in the last month. #Nonhealing ulcer, left gluteal area -Vanc/zosyn given at the ED - Clindamycin 300 TID. Random Vanc level 21.9. -Blood cultures -, wound culture + for MRSA -Lactic acid wnl -Gentle hydration -Wound care -I.D on board -wound cx from previous admissions showed strep species and enterobater #IDDM: uncontrolled -Glu 855 --> 727 -anion gap closed, lactic acid wnl -Insulin 6 units sq, 18 units IV given at the ED -BGM q2h -ISS -Levemir 45 units sq bid. #Hypothyroidism -TSH 9.14 in setting of normal T4 -Endo consult #JAC on CKD -BUN/Cr 47/3.9 (baseline 3-3.5). Urine eosinophils NEGATIVE -Avoid nephrotoxic agents such as aminoglycosides, contrast agents -Nephrology on board. Lasix on a daily basis to be evaluated. Fluids stopped. #Diastolic CHF -Patient reported he only takes the medication when he has leg swelling, has not been taking it recently -Echo (2017): EF 53%, mild concentric LVH, Moderator band in RV, LA moderately dilated, RA mildly dilated. Mild MR, Moderate TR. RV systolic pressure elevated 50-60mmHg. Severe pulmonary HTN. Mild aortic dilatation. #HTN - Amlodipine 10 daily in light of recent high BP measurements and concomitant DM diagnosis. -monitor BP #FEN -No Fluids -monitor electrolytes -Diabetic/sodium controlled diet #Prophylaxis -Heparin 5000units sq tid #Dispo med-surg Visit type - Emergency Visit Emergency Visit: Yes ED Registration Date: 08/24/18 Care time: The patient presented to the Emergency Department on the above date and was hospitalized for further evaluation of their emergent condition. - New Patient This patient is new to me today: No - Critical Care Critical Care patient: No - Discharge Referral Referred to [facility] Med P.C.: No
--- NOTE | 2018-09-01 19:15 | PN ---
Teaching Attending Note Name of Resident: Bryan Huerta ATTENDING PHYSICIAN STATEMENT I saw and evaluated the patient. I reviewed the resident's note and discussed the case with the resident. I agree with the resident's findings and plan as documented. SUBJECTIVE: patient is comfortable with no acute distress. OBJECTIVE: Vital Signs Temperature 98.5 F 09/01/18 17:35 Pulse Rate 67 09/01/18 17:35 Respiratory Rate 18 09/01/18 17:35 Blood Pressure 116/62 09/01/18 17:35 O2 Sat by Pulse Oximetry (%) 96 09/01/18 09:00 GENERAL: no acute distress HEAD: Normal with no signs of trauma. EYES: EOMI Sclera clear, ENT: MMM NECK: Trachea midline, full range of motion, supple. LUNGS: CTAB ,HEART: RRR NL S1S2 ABDOMEN: Obese nondistended nontender EXTREMITIES: open ulcer left toe , no drainage, no odor appreciated. Buttock: Left buttock with 2 cm open wound, no further discharge. Right buttock with coin sized closed wound NEUROLOGICAL: CN 2-12 intact PSYCH: Normal mood, normal affect. CBCD WBC 6.8 K/mm3 (4.0-10.0) 09/01/18 06:30 RBC 3.35 M/mm3 (4.00-5.60) L 09/01/18 06:30 Hgb 9.0 GM/dL (11.7-16.9) L 09/01/18 06:30 Hct 27.4 % (35.4-49) L 09/01/18 06:30 MCV 81.8 fl (80-96) 09/01/18 06:30 MCHC 32.8 g/dl (32.0-35.9) 09/01/18 06:30 RDW 16.8 % (11.9-15.9) H 09/01/18 06:30 Plt Count 275 K/MM3 (134-434) 09/01/18 06:30 MPV 8.2 fl (7.5-11.1) 09/01/18 06:30 CMP Sodium 138 mmol/L (136-145) 09/01/18 06:30 Potassium 5.0 mmol/L (3.5-5.1) 09/01/18 06:30 Chloride 114 mmol/L (98-107) H 09/01/18 06:30 Carbon Dioxide 17 mmol/L (21-32) L 09/01/18 06:30 Anion Gap 7 MMOL/L (8-16) L 09/01/18 06:30 BUN 47 mg/dL (7-18) H 09/01/18 06:30 Creatinine 3.9 mg/dL (0.55-1.3) H 09/01/18 06:30 Creat Clearance w eGFR 16.45 (>60) 09/01/18 06:30 Random Glucose 121 mg/dL (74-106) H 09/01/18 06:30 Calcium 7.8 mg/dL (8.5-10.1) L 09/01/18 06:30 Total Bilirubin 0.2 mg/dL (0.2-1) 09/01/18 06:30 AST 10 U/L (15-37) L 09/01/18 06:30 ALT 16 U/L (13-61) 09/01/18 06:30 Alkaline Phosphatase 110 U/L (45-117) 09/01/18 06:30 Total Protein 6.2 g/dl (6.4-8.2) L 09/01/18 06:30 Albumin 2.0 g/dl (3.4-5.0) L 09/01/18 06:30 Current Medications Generic Name Dose Route Start Last Admin Trade Name Freq PRN Reason Stop Dose Admin Acetaminophen 325 mg 08/25/18 14:00 08/30/18 04:37 Tylenol - PO 325 mg Q8H PRN Administration PAIN 5-10 Amlodipine Besylate 10 mg 08/31/18 20:05 09/01/18 09:17 Norvasc - PO 10 mg DAILY MARY Administration Aspirin 81 mg 08/26/18 10:00 09/01/18 09:15 Ecotrin - PO 81 mg DAILY MARY Administration Atorvastatin Calcium 40 mg 08/25/18 22:00 08/31/18 21:12 Lipitor - PO 40 mg HS MARY Administration Clindamycin HCl 300 mg 08/28/18 13:45 09/01/18 13:06 Cleocin - PO 300 mg TID MARY Administration Diltiazem HCl 240 mg 08/26/18 12:00 09/01/18 09:15 Cardizem Cd - PO 240 mg DAILY MARY Administration Heparin Sodium (Porcine) 5,000 unit 08/28/18 14:00 09/01/18 13:05 Heparin - SQ 5,000 unit TID MARY Administration Insulin Aspart 1 vial 08/25/18 07:00 09/01/18 16:41 Novolog Vial Sliding Scale - SQ Not Given ACHS [facility] Protocol Insulin Detemir 45 units 08/28/18 22:00 09/01/18 06:07 Levemir Vial SQ 45 unit BID@0700,2200 MARY Administration Lactobacillus Acidophilus 1 tab 08/28/18 12:45 09/01/18 09:14 Bacid - PO 1 tab DAILY MARY Administration Oxycodone HCl 10 mg 08/31/18 19:46 09/01/18 13:09 Roxicodone - PO 10 mg Q8H PRN Administration PAIN LEVEL 7 - 10 Home Medications Medication Instructions Recorded Aspirin [ASA -] 81 mg DAILY 08/25/18 Atorvastatin Ca [Lipitor] 40 mg DAILY 08/25/18 Cholecalciferol (Vitamin D3) 50,000 units PO WEEKLY 08/25/18 [Vitamin D3] Diltiazem Cd [Cardizem Cd -] 240 mg DAILY 08/25/18 Furosemide 40 mg BID 08/25/18 Insulin Glargine,Hum.rec.anlog 80 unit SQ DAILY 08/25/18 [Basaglar Kwikpen U-100] Insulin Lispro [Humalog] 30 units TID 08/25/18 Oxycodone HCl/Acetaminophen 1 tablet PO TID PRN 08/25/18 [Oxycodone-Acetaminophen 10-325] Sodium Bicarbonate - 2 tab TID 08/25/18 Tizanidine HCl 2 mg TID 08/25/18 ASSESSMENT AND PLAN: Patient is a 52 y/o man with h/o DM , HTN, Asthma, HLP, CKD, chronic back pain, OM of L metatarsal head , recurrent skin infections especially in gluteal area who presented with gluteal pain and was found to have gluteal abscesses. # MRSA Gluteal abscesses: on clindamycin continue . No surgical intervention needed since drained. # JAC on CKD:nephro is on the case , further care per nephro, off ivf, lasix on a daily basis to be evaluated. continue to monitor # Hyperkalemia: due to renal failure, will monitor , is higher today , will monitor, nephro on the case. # T2DM continue Lantus, At Dc he will be on lantus bid instead of daily and a SSI # Hx of Diastolic CHF: not in exacerbation # HTN: cardizem and norvasc continue # Elevated TSH, with normal thyroid , subclinical hypothyroidism. will get elevator starter to see the patient. DVT Px: heparin
--- NOTE | 2018-09-01 20:51 | PN ---
Progress Note (short form) - Note Progress Note: Problems 1. CKD 2. CHF 3. hx of DFU 4. hx of osteomyelitis 5. hx hyperkalemia 6. DM 7. HTN 8. obesity 9. anemia 10. hx of urinary obstruction/high post void residual 11. nephrotic range proteinuria 12. gluteal abscess 13. fluid overload Current Medications Acetaminophen (Tylenol -) 325 mg PO Q8H PRN PRN Reason: PAIN 5-10 Last Admin: 08/30/18 04:37 Dose: 325 mg Amlodipine Besylate (Norvasc -) 10 mg PO DAILY [facility] Last Admin: 09/01/18 09:17 Dose: 10 mg Aspirin (Ecotrin -) 81 mg PO DAILY [facility] Last Admin: 09/01/18 09:15 Dose: 81 mg Atorvastatin Calcium (Lipitor -) 40 mg PO HS [facility] Last Admin: 08/31/18 21:12 Dose: 40 mg Clindamycin HCl (Cleocin -) 300 mg PO TID [facility] Last Admin: 09/01/18 13:06 Dose: 300 mg Diltiazem HCl (Cardizem Cd -) 240 mg PO DAILY [facility] Last Admin: 09/01/18 09:15 Dose: 240 mg Heparin Sodium (Porcine) (Heparin -) 5,000 unit SQ TID [facility] Last Admin: 09/01/18 13:05 Dose: 5,000 unit Insulin Aspart (Novolog Vial Sliding Scale -) 1 vial SQ ACHS [facility]; Protocol Last Admin: 09/01/18 16:41 Dose: Not Given Insulin Detemir (Levemir Vial) 45 units SQ BID@0700,2200 [facility] Last Admin: 09/01/18 06:07 Dose: 45 unit Lactobacillus Acidophilus (Bacid -) 1 tab PO DAILY [facility] Last Admin: 09/01/18 09:14 Dose: 1 tab Oxycodone HCl (Roxicodone -) 10 mg PO Q8H PRN PRN Reason: PAIN LEVEL 7 - 10 Last Admin: 09/01/18 13:09 Dose: 10 mg Last Vital Signs Temp Pulse Resp BP Pulse Ox 98.5 F 67 18 116/62 96 09/01/18 17:35 09/01/18 17:35 09/01/18 17:35 09/01/18 17:35 09/01/18 09:00 CBC, BMP 09/01/18 06:30 09/01/18 06:30 CKD renal function stable Plan- same rx f/u labs
[2018-09-01] MEDS ORDERED: INSULIN (NOVOLOG) ASPART 100 UNITS/ML 10ML VIAL ONE (22:14)
[2018-09-01] MEDS: ATORVASTATIN CA 40 MG TABLET (FP) PO SCH (22:17)
[2018-09-02] MEDS: HEPARIN NA (PORCINE) 5,000 UNITS/ML 1ML VIAL SQ SCH ×3 (05:33→21:45)
[2018-09-02] MEDS: CLINDAMYCIN HCL 150 MG CAPSULE (FP) PO SCH ×3 (05:33→21:44)
[2018-09-02] MEDS: INSULIN (LEVEMIR) 100 UNITS/ML UNITS SQ SCH ×2 (06:12→21:44)
[2018-09-02] MEDS: INSULIN SLIDING SCALE (NOVOLOG) 1 VIAL SQ SCH ×4 (06:13→21:45)
[2018-09-02 09:05] LABS: HEMATOCRIT 28.2 % (35.4-49); HEMOGLOBIN 9.1 GM/dL (11.7-16.9); MCH 26.1 pg (25.7-33.7); MCHC 32.2 g/dl (32.0-35.9); MEAN PLT VOLUME 7.8 fl (7.5-11.1); PLATELET COUNT 273 K/MM3 (134-434); RBC 3.48 M/mm3 (4.00-5.60); RDW 17.3 % (11.9-15.9); WHITE BLOOD COUNT 6.7 K/mm3 (4.0-10.0)
[2018-09-02 09:35] LABS: ANION GAP 8 MMOL/L (8-16); BLOOD UREA NITROGEN 49 mg/dL (7-18); CALCIUM 7.9 mg/dL (8.5-10.1); CHLORIDE 114 mmol/L (98-107); CO2 19 mmol/L (21-32); CREATININE 4.1 mg/dL (0.55-1.3); GLUCOSE,RANDOM 133 mg/dL (74-106); MAGNESIUM 1.5 mg/dL (1.8-2.4); PHOSPHOROUS 5.9 mg/dL (2.5-4.9); POTASSIUM 5.2 mmol/L (3.5-5.1); SODIUM 140 mmol/L (136-145)
[2018-09-02] MEDS: LACTOBACILLUS ACIDOPHILUS 1 TABLET PO SCH (09:48)
[2018-09-02] MEDS: ASPIRIN COATED 81 MG TABLET.EC PO SCH (09:48)
[2018-09-02] MEDS: amLODIPine BESYLATE 5 MG TABLET (FP) PO SCH (09:51)
[2018-09-02] MEDS: CALCIUM ACETATE 667 MG CAPSULE (FP) PO SCH ×2 (12:28→18:23)
[2018-09-02] MEDS ORDERED: FUROSEMIDE 40 MG/4 ML INJECTABLE VIAL IVPUSH ONE (12:30)
--- NOTE | 2018-09-02 15:20 | PN ---
Progress Note (short form) - Note Progress Note: Patient has no new complain. Vital Signs Temperature 98.7 F 09/02/18 05:00 Pulse Rate 64 09/02/18 05:00 Respiratory Rate 18 09/02/18 05:00 Blood Pressure 130/64 09/02/18 05:00 O2 Sat by Pulse Oximetry (%) 96 09/01/18 21:00 GENERAL: no acute distress HEAD: Normal with no signs of trauma. EYES: EOMI Sclera clear, ENT: MMM NECK: Trachea midline, full range of motion, supple. LUNGS: CTAB ,HEART: RRR NL S1S2 ABDOMEN: Obese nondistended nontender EXTREMITIES: open ulcer left toe , no drainage, no odor appreciated. Buttock: Left buttock with 2 cm open wound, no further discharge. Right buttock with coin sized closed wound NEUROLOGICAL: CN 2-12 intact PSYCH: Normal mood, normal affect. CBCD WBC 6.7 K/mm3 (4.0-10.0) 09/02/18 08:50 RBC 3.48 M/mm3 (4.00-5.60) L 09/02/18 08:50 Hgb 9.1 GM/dL (11.7-16.9) L 09/02/18 08:50 Hct 28.2 % (35.4-49) L 09/02/18 08:50 MCV 81.0 fl (80-96) 09/02/18 08:50 MCHC 32.2 g/dl (32.0-35.9) 09/02/18 08:50 RDW 17.3 % (11.9-15.9) H 09/02/18 08:50 Plt Count 273 K/MM3 (134-434) 09/02/18 08:50 MPV 7.8 fl (7.5-11.1) 09/02/18 08:50 CMP Sodium 140 mmol/L (136-145) 09/02/18 08:50 Potassium 5.2 mmol/L (3.5-5.1) H 09/02/18 08:50 Chloride 114 mmol/L (98-107) H 09/02/18 08:50 Carbon Dioxide 19 mmol/L (21-32) L 09/02/18 08:50 Anion Gap 8 MMOL/L (8-16) 09/02/18 08:50 BUN 49 mg/dL (7-18) H 09/02/18 08:50 Creatinine 4.1 mg/dL (0.55-1.3) H 09/02/18 08:50 Creat Clearance w eGFR 15.52 (>60) 09/02/18 08:50 Random Glucose 133 mg/dL (74-106) H 09/02/18 08:50 Calcium 7.9 mg/dL (8.5-10.1) L 09/02/18 08:50 Total Bilirubin 0.2 mg/dL (0.2-1) 09/01/18 06:30 AST 10 U/L (15-37) L 09/01/18 06:30 ALT 16 U/L (13-61) 09/01/18 06:30 Alkaline Phosphatase 110 U/L (45-117) 09/01/18 06:30 Total Protein 6.2 g/dl (6.4-8.2) L 09/01/18 06:30 Albumin 2.0 g/dl (3.4-5.0) L 09/01/18 06:30 Current Medications Generic Name Dose Route Start Last Admin Trade Name Freq PRN Reason Stop Dose Admin Acetaminophen 325 mg 08/25/18 14:00 08/30/18 04:37 Tylenol - PO 325 mg Q8H PRN Administration PAIN 5-10 Amlodipine Besylate 10 mg 08/31/18 20:05 09/02/18 09:51 Norvasc - PO 10 mg DAILY MARY Administration Aspirin 81 mg 08/26/18 10:00 09/02/18 09:48 Ecotrin - PO 81 mg DAILY MARY Administration Atorvastatin Calcium 40 mg 08/25/18 22:00 09/01/18 22:17 Lipitor - PO 40 mg HS MARY Administration Calcium Acetate 667 mg 09/02/18 12:15 09/02/18 12:28 Phoslo - PO 667 mg TIDCM MARY Administration Clindamycin HCl 300 mg 08/28/18 13:45 09/02/18 14:47 Cleocin - PO 300 mg TID MARY Administration Diltiazem HCl 240 mg 08/26/18 12:00 09/02/18 09:51 Cardizem Cd - PO 240 mg DAILY MARY Administration Docusate Sodium 300 mg 09/02/18 22:00 Colace - PO HS MARY Heparin Sodium (Porcine) 5,000 unit 08/28/18 14:00 09/02/18 14:47 Heparin - SQ 5,000 unit TID MARY Administration Insulin Aspart 1 vial 08/25/18 07:00 09/02/18 12:28 Novolog Vial Sliding Scale - SQ 2 unit ACHS MARY Administration Protocol Insulin Detemir 45 units 08/28/18 22:00 09/02/18 06:12 Levemir Vial SQ 45 unit BID@0700,2200 MARY Administration Lactobacillus Acidophilus 1 tab 08/28/18 12:45 09/02/18 09:48 Bacid - PO 1 tab DAILY MARY Administration Home Medications Medication Instructions Recorded Aspirin [ASA -] 81 mg DAILY 08/25/18 Atorvastatin Ca [Lipitor] 40 mg DAILY 08/25/18 Cholecalciferol (Vitamin D3) 50,000 units PO WEEKLY 08/25/18 [Vitamin D3] Diltiazem Cd [Cardizem Cd -] 240 mg DAILY 08/25/18 Furosemide 40 mg BID 08/25/18 Insulin Glargine,Hum.rec.anlog 80 unit SQ DAILY 08/25/18 [Basaglar Kwikpen U-100] Insulin Lispro [Humalog] 30 units TID 08/25/18 Oxycodone HCl/Acetaminophen 1 tablet PO TID PRN 08/25/18 [Oxycodone-Acetaminophen 10-325] Sodium Bicarbonate - 2 tab TID 08/25/18 Tizanidine HCl 2 mg TID 08/25/18 ASSESSMENT AND PLAN: Patient is a 52 y/o man with h/o DM , HTN, Asthma, HLP, CKD, chronic back pain, OM of L metatarsal head , recurrent skin infections especially in gluteal area who presented with gluteal pain and was found to have gluteal abscesses. # JAC on CKD:nephro is on the case , further care per nephro, off ivf, lasix on a daily basis to be evaluated. continue to monitor # MRSA Gluteal abscesses: on clindamycin continue . No surgical intervention needed since drained. # Hyperphosphetemia: will start the patient on phoslo 667mg po tid post meals # Hyperkalemia: will give him a dose of lasix IV today 40mg , due to renal failure, will continue to monitor , nephro on the case. # T2DM continue Lantus, At Dc he will be on lantus bid instead of daily and a SSI # Hx of Diastolic CHF: not in exacerbation # HTN: cardizem and norvasc continue # Elevated TSH, with normal thyroid , subclinical hypothyroidism. will get field servicer to see the patient. for consult. DVT Px: heparin Visit type - Emergency Visit Emergency Visit: Yes ED Registration Date: 08/24/18 Care time: The patient presented to the Emergency Department on the above date and was hospitalized for further evaluation of their emergent condition. - New Patient This patient is new to me today: No - Critical Care Critical Care patient: No - Discharge Referral Referred to [facility] Med [facility].: No
--- NOTE | 2018-09-02 16:45 | PN ---
Progress Note (short form) - Note Progress Note: Problems 1. CKD 2. CHF 3. hx of DFU 4. hx of osteomyelitis 5. hx hyperkalemia 6. DM 7. HTN 8. obesity 9. anemia 10. hx of urinary obstruction/high post void residual 11. nephrotic range proteinuria 12. gluteal abscess 13. fluid overload Current Medications Acetaminophen (Tylenol -) 325 mg PO Q8H PRN PRN Reason: PAIN 5-10 Last Admin: 08/30/18 04:37 Dose: 325 mg Amlodipine Besylate (Norvasc -) 10 mg PO DAILY [facility] Last Admin: 09/02/18 09:51 Dose: 10 mg Aspirin (Ecotrin -) 81 mg PO DAILY [facility] Last Admin: 09/02/18 09:48 Dose: 81 mg Atorvastatin Calcium (Lipitor -) 40 mg PO HS [facility] Last Admin: 09/01/18 22:17 Dose: 40 mg Calcium Acetate (Phoslo -) 667 mg PO TIDCM [facility] Last Admin: 09/02/18 12:28 Dose: 667 mg Clindamycin HCl (Cleocin -) 300 mg PO TID [facility] Last Admin: 09/02/18 14:47 Dose: 300 mg Diltiazem HCl (Cardizem Cd -) 240 mg PO DAILY [facility] Last Admin: 09/02/18 09:51 Dose: 240 mg Docusate Sodium (Colace -) 300 mg PO [facility] Heparin Sodium (Porcine) (Heparin -) 5,000 unit SQ TID [facility] Last Admin: 09/02/18 14:47 Dose: 5,000 unit Insulin Aspart (Novolog Vial Sliding Scale -) [address] [facility]; Protocol Last Admin: 09/02/18 12:28 Dose: 2 unit Insulin Detemir (Levemir Vial) 45 units SQ BID@0700,2200 [facility] Last Admin: 09/02/18 06:12 Dose: 45 unit Lactobacillus Acidophilus (Bacid -) 1 tab PO DAILY [facility] Last Admin: 09/02/18 09:48 Dose: 1 tab Last Vital Signs Temp Pulse Resp BP Pulse Ox 98.5 F 65 18 149/82 96 09/02/18 10:00 09/02/18 10:00 09/02/18 10:00 09/02/18 10:00 09/01/18 21:00 Lungs clear Heart reg abd soft nontender ext no edema CBC, BMP 09/02/18 08:50 09/02/18 08:50 CBC, BMP 09/01/18 06:30 09/01/18 06:30 CKD renal function stable Plan- same rx f/u labs
[2018-09-02] MEDS: DOCUSATE SODIUM 100 MG CAPSULE (FP) PO SCH (21:44)
[2018-09-02] MEDS: ATORVASTATIN CA 40 MG TABLET (FP) PO SCH (21:44)
[2018-09-02] MEDS ORDERED: oxyCODONE HCL 5 MG TABLET PO ONE (22:02)
[2018-09-02] MEDS: ACETAMINOPHEN 325 MG TABLET (FP) PO PRN (22:19)
[2018-09-03] MEDS: CLINDAMYCIN HCL 150 MG CAPSULE (FP) PO SCH ×3 (06:39→22:04)
[2018-09-03] MEDS: HEPARIN NA (PORCINE) 5,000 UNITS/ML 1ML VIAL SQ SCH ×3 (06:39→22:04)
[2018-09-03] MEDS: INSULIN (LEVEMIR) 100 UNITS/ML UNITS SQ SCH ×2 (06:40→22:04)
[2018-09-03] MEDS: INSULIN SLIDING SCALE (NOVOLOG) 1 VIAL SQ SCH ×4 (06:40→22:05)
[2018-09-03 07:43] LABS: ALK PHOS 109 U/L (45-117); ANION GAP 7 MMOL/L (8-16); BILIRUBIN,TOTAL < 0.1 mg/dL (0.2-1); BLOOD UREA NITROGEN 49 mg/dL (7-18); CALCIUM 7.5 mg/dL (8.5-10.1); CHLORIDE 113 mmol/L (98-107); CO2 20 mmol/L (21-32); CREATININE 4.2 mg/dL (0.55-1.3); GLUCOSE,RANDOM 219 mg/dL (74-106); MAGNESIUM 1.6 mg/dL (1.8-2.4); PHOSPHOROUS 5.6 mg/dL (2.5-4.9); POTASSIUM 5.4 mmol/L (3.5-5.1); SGOT/AST 18 U/L (15-37); SGPT/ALT 26 U/L (13-61); SODIUM 140 mmol/L (136-145)
[2018-09-03] MEDS ORDERED: MAGNESIUM OXIDE 400 MG TABLET (FP) PO ONE (08:43)
[2018-09-03] MEDS: CALCIUM ACETATE 667 MG CAPSULE (FP) PO SCH ×3 (08:57→17:44)
[2018-09-03] MEDS: amLODIPine BESYLATE 5 MG TABLET (FP) PO SCH (09:01)
[2018-09-03] MEDS: ASPIRIN COATED 81 MG TABLET.EC PO SCH (09:01)
[2018-09-03] MEDS: LACTOBACILLUS ACIDOPHILUS 1 TABLET PO SCH (09:01)
--- NOTE | 2018-09-03 09:38 | PN ---
Physical Exam: SUBJECTIVE: Patient seen and examined OBJECTIVE: Vital Signs Period Temp Pulse Resp BP Sys/Swartz Pulse Ox Last 24 Hr 97.9 F-98.7 F 65-83 18-18 136-157/63-82 GENERAL: The patient is awake, alert, and fully oriented, in no acute distress. HEAD: Normal with no signs of trauma. EYES: PERRL, extraocular movements intact, sclera anicteric, conjunctiva clear. No ptosis. ENT: Ears normal, nares patent, oropharynx clear without exudates, moist mucous membranes. NECK: Trachea midline, full range of motion, supple. LUNGS: Breath sounds equal, clear to auscultation bilaterally, no wheezes, no crackles, no accessory muscle use. HEART: Regular rate and rhythm, S1, S2 without murmur, rub or gallop. ABDOMEN: Soft, nontender, nondistended, normoactive bowel sounds, no guarding, no rebound, no hepatosplenomegaly, no masses. EXTREMITIES: 2+ pulses, warm, well-perfused, no edema. NEUROLOGICAL: Cranial nerves II through XII grossly intact. Normal speech, gait not observed. PSYCH: Normal mood, normal affect. SKIN: Warm, dry, normal turgor, no rashes or lesions noted Laboratory Results - last 24 hr 09/02/18 09/02/18 09/02/18 11:57 16:44 21:42 Sodium Potassium Chloride Carbon Dioxide Anion Gap BUN Creatinine Creat Clearance w eGFR POC Glucometer 158 141 179 Random Glucose Calcium Phosphorus Magnesium Total Bilirubin AST ALT Alkaline Phosphatase Total Protein Albumin 09/03/18 09/03/18 05:45 06:39 Sodium 140 Potassium 5.4 H Chloride 113 H Carbon Dioxide 20 L Anion Gap 7 L BUN 49 H Creatinine 4.2 H Creat Clearance w eGFR 15.10 POC Glucometer 194 Random Glucose 219 H Calcium 7.5 L Phosphorus 5.6 H Magnesium 1.6 L Total Bilirubin < 0.1 L AST 18 ALT 26 Alkaline Phosphatase 109 Total Protein 6.0 L Albumin 2.0 L Active Medications Generic Name Dose Route Start Last Admin Trade Name Freq PRN Reason Stop Dose Admin Acetaminophen 325 mg 08/25/18 14:00 09/02/18 22:19 Tylenol - PO 325 mg Q8H PRN Administration PAIN 5-10 Amlodipine Besylate 10 mg 08/31/18 20:05 09/03/18 09:01 Norvasc - PO 10 mg DAILY MARY Administration Aspirin 81 mg 08/26/18 10:00 09/03/18 09:01 Ecotrin - PO 81 mg DAILY MARY Administration Atorvastatin Calcium 40 mg 08/25/18 22:00 09/02/18 21:44 Lipitor - PO 40 mg HS MARY Administration Calcium Acetate 667 mg 09/02/18 12:15 09/03/18 08:57 Phoslo - PO 667 mg TIDCM MARY Administration Clindamycin HCl 300 mg 08/28/18 13:45 09/03/18 06:39 Cleocin - PO 300 mg TID MARY Administration Diltiazem HCl 240 mg 08/26/18 12:00 09/03/18 09:01 Cardizem Cd - PO 240 mg DAILY MARY Administration Docusate Sodium 300 mg 09/02/18 22:00 09/02/18 21:44 Colace - PO 300 mg HS MARY Administration Heparin Sodium (Porcine) 5,000 unit 08/28/18 14:00 09/03/18 06:39 Heparin - SQ 5,000 unit TID MARY Administration Insulin Aspart 1 vial 08/25/18 07:00 09/03/18 06:40 Novolog Vial Sliding Scale - SQ 2 unit ACHS [facility] Administration Protocol Insulin Detemir 45 units 08/28/18 22:00 09/03/18 06:40 Levemir Vial SQ 45 unit BID@0700,2200 MARY Administration Lactobacillus Acidophilus 1 tab 08/28/18 12:45 09/03/18 09:01 Bacid - PO 1 tab DAILY MARY Administration ASSESSMENT/PLAN:
[2018-09-03] MEDS ORDERED: FUROSEMIDE 40 MG TABLET (FP) PO ONE (10:30)
--- NOTE | 2018-09-03 19:06 | PN ---
Teaching Attending Note Name of Resident: Catarino Esposito ATTENDING PHYSICIAN STATEMENT I saw and evaluated the patient. I reviewed the resident's note and discussed the case with the resident. I agree with the resident's findings and plan as documented. SUBJECTIVE: Patient is feeling better with no acute distress, no further discomfort. OBJECTIVE: Vital Signs Temperature 98.4 F 09/03/18 19:03 Pulse Rate 63 09/03/18 19:03 Respiratory Rate 18 09/03/18 19:03 Blood Pressure 118/57 L 09/03/18 19:03 O2 Sat by Pulse Oximetry (%) 96 09/01/18 21:00 GENERAL: no acute distress HEAD: Normal with no signs of trauma. EYES: EOMI Sclera clear, ENT: MMM NECK: Trachea midline, full range of motion, supple. LUNGS: CTAB ,HEART: RRR NL S1S2 ABDOMEN: Obese nondistended nontender EXTREMITIES: open ulcer left toe with eschar , no drainage, no odor appreciated. Buttock: Left buttock with 2 cm open wound, no further drainage, Right buttock with coin sized closed wound NEUROLOGICAL: CN 2-12 intact PSYCH: Normal mood, normal affect. CBCD WBC 6.7 K/mm3 (4.0-10.0) 09/02/18 08:50 RBC 3.48 M/mm3 (4.00-5.60) L 09/02/18 08:50 Hgb 9.1 GM/dL (11.7-16.9) L 09/02/18 08:50 Hct 28.2 % (35.4-49) L 09/02/18 08:50 MCV 81.0 fl (80-96) 09/02/18 08:50 MCHC 32.2 g/dl (32.0-35.9) 09/02/18 08:50 RDW 17.3 % (11.9-15.9) H 09/02/18 08:50 Plt Count 273 K/MM3 (134-434) 09/02/18 08:50 MPV 7.8 fl (7.5-11.1) 09/02/18 08:50 CMP Sodium 140 mmol/L (136-145) 09/03/18 05:45 Potassium 5.4 mmol/L (3.5-5.1) H 09/03/18 05:45 Chloride 113 mmol/L (98-107) H 09/03/18 05:45 Carbon Dioxide 20 mmol/L (21-32) L 09/03/18 05:45 Anion Gap 7 MMOL/L (8-16) L 09/03/18 05:45 BUN 49 mg/dL (7-18) H 09/03/18 05:45 Creatinine 4.2 mg/dL (0.55-1.3) H 09/03/18 05:45 Creat Clearance w eGFR 15.10 (>60) 09/03/18 05:45 Random Glucose 219 mg/dL (74-106) H 09/03/18 05:45 Calcium 7.5 mg/dL (8.5-10.1) L 09/03/18 05:45 Total Bilirubin < 0.1 mg/dL (0.2-1) L 09/03/18 05:45 AST 18 U/L (15-37) 09/03/18 05:45 ALT 26 U/L (13-61) 09/03/18 05:45 Alkaline Phosphatase 109 U/L (45-117) 09/03/18 05:45 Total Protein 6.0 g/dl (6.4-8.2) L 09/03/18 05:45 Albumin 2.0 g/dl (3.4-5.0) L 09/03/18 05:45 Current Medications Generic Name Dose Route Start Last Admin Trade Name Freq PRN Reason Stop Dose Admin Acetaminophen 325 mg 08/25/18 14:00 09/02/18 22:19 Tylenol - PO 325 mg Q8H PRN Administration PAIN 5-10 Amlodipine Besylate 10 mg 08/31/18 20:05 09/03/18 09:01 Norvasc - PO 10 mg DAILY MARY Administration Aspirin 81 mg 08/26/18 10:00 09/03/18 09:01 Ecotrin - PO 81 mg DAILY MARY Administration Atorvastatin Calcium 40 mg 08/25/18 22:00 09/02/18 21:44 Lipitor - PO 40 mg HS MARY Administration Calcium Acetate 667 mg 09/02/18 12:15 09/03/18 17:44 Phoslo - PO 667 mg TIDCM MARY Administration Clindamycin HCl 300 mg 08/28/18 13:45 09/03/18 13:39 Cleocin - PO 300 mg TID MARY Administration Diltiazem HCl 240 mg 08/26/18 12:00 09/03/18 09:01 Cardizem Cd - PO 240 mg DAILY MARY Administration Docusate Sodium 300 mg 09/02/18 22:00 09/02/18 21:44 Colace - PO 300 mg HS MARY Administration Heparin Sodium (Porcine) 5,000 unit 08/28/18 14:00 09/03/18 13:40 Heparin - SQ 5,000 unit TID MARY Administration Insulin Aspart 1 vial 08/25/18 07:00 09/03/18 17:43 Novolog Vial Sliding Scale - SQ Not Given [facility]S [facility] Protocol Insulin Detemir 45 units 08/28/18 22:00 09/03/18 06:40 Levemir Vial SQ 45 unit BID@0700,2200 MARY Administration Lactobacillus Acidophilus 1 tab 08/28/18 12:45 09/03/18 09:01 Bacid - PO 1 tab DAILY MARY Administration Home Medications Medication Instructions Recorded Aspirin [ASA -] 81 mg DAILY 08/25/18 Atorvastatin Ca [Lipitor] 40 mg DAILY 08/25/18 Cholecalciferol (Vitamin D3) 50,000 units PO WEEKLY 08/25/18 [Vitamin D3] Diltiazem Cd [Cardizem Cd -] 240 mg DAILY 08/25/18 Furosemide 40 mg BID 08/25/18 Insulin Glargine,Hum.rec.anlog 80 unit SQ DAILY 08/25/18 [Basaglar Kwikpen U-100] Insulin Lispro [Humalog] 30 units TID 08/25/18 Oxycodone HCl/Acetaminophen 1 tablet PO TID PRN 08/25/18 [Oxycodone-Acetaminophen 10-325] Sodium Bicarbonate - 2 tab TID 08/25/18 Tizanidine HCl 2 mg TID 08/25/18 Microbiology 08/24/18 20:00 Blood - Peripheral Venous Blood Culture - Final NO GROWTH AFTER 5 DAYS INCUBATION 08/24/18 20:00 Blood - Peripheral Venous Blood Culture - Final NO GROWTH AFTER 5 DAYS INCUBATION 08/25/18 12:05 Abscess Gram Stain - Final 08/25/18 12:05 Abscess Wound Culture - Final S Aureus 08/25/18 00:05 Urine - Urine Clean Catch Urine Culture - Final NO GROWTH OBTAINED ASSESSMENT AND PLAN: Patient is a 52 y/o man with h/o DM , HTN, Asthma, HLP, CKD, chronic back pain, OM of L metatarsal head , recurrent skin infections especially in gluteal area who presented with gluteal pain and was found to have gluteal abscesses. # JAC on CKD: nephro is on the case , further care per nephro, off ivf,on lasix po x 1 again, elevated cr.4.2--> 3.7 today , discussed with dr sena, patient can be discharged home on PO lasix , the same dose that he is taking at home. # Hyperphosphetemia:on Phoslo started 667mg po tid continue as per nephro. post meals # MRSA Gluteal abscesses s/p drainage: on clindamycin , last dose today , seen the patient with dr. joseph. No surgical intervention needed since drained. # Hyperkalemia: imoroving s/p lasix IV today 40mg , due to renal failure, will continue to monitor , nephro on the case. 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 camp for further care as an outpatient, follow in 6 weeks. ri patient home,
--- NOTE | 2018-09-03 20:50 | CONSULT ---
Consult Consult Specialty:: endocrine Referred by:: Reason for Consultation:: hypothyroidism/dm2 - History of Present Illness Chief Complaint: tired and has,weight gain History of Present Illness: Patient is a 52 year old male with DM type 2 (noncompliant), HTN, diastolic CHF , and CKD, presented with worsening left buttock abscess in the last month. Patient reported he has been having multiple wounds in his buttocks in the last year that comes and goes. During his last admission in December 2017, he had a draining ulcer in the perianal area, where he underwent I&D. The wound was positive for Strep agalactiae. He was treated with Clindamycin and Cefepime and was discharged on medication.he admits having high sugars,noncompliant with diabetes management,feels tired easily,cold,and has dry skin. - Past Medical History Cardio/Vascular: Yes: HTN, Hyperlipdemia Pulmonary: Yes: Asthma, Other (chronic cough (nonproductive) x1 year) Gastrointestinal: Yes: Other (obesity) Renal/: Yes: Renal Inusuff (CKD stage 4 baseline Creatinine 1.8), Other ( urinary obstruction) Infectious Disease: Yes: MRSA (right buttock abscess several years ago), Other ( osteomyelitis) Endocrine: Yes: Diabetes Mellitus, Other (DM with neuropathy) - Alcohol/Substance Use Hx Alcohol Use: No History of Substance Use: reports: None - Smoking History Smoking history: Never smoked Have you smoked in the past 12 months: No Aproximately how many cigarettes per day: 0 - Social History Usual Living Arrangement: With Child ADL: 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 History of Recent Travel: No Home Medications - Allergies Allergies/Adverse Reactions: Allergies Allergy/AdvReac Type Severity Reaction Status Date / Time No Known Allergies Allergy Verified 08/24/18 19:49 - Home Medications Home Medications: Ambulatory Orders Aspirin [ASA -] 81 mg DAILY 08/25/18 Atorvastatin Ca [Lipitor] 40 mg DAILY 08/25/18 Cholecalciferol (Vitamin D3) [Vitamin D3] 50,000 units PO WEEKLY 08/25/18 Diltiazem Cd [Cardizem Cd -] 240 mg DAILY 08/25/18 Furosemide 40 mg BID 08/25/18 Insulin Glargine,Hum.rec.anlog [Basaglar Kwikpen U-100] 80 unit SQ DAILY Insulin Lispro [Humalog] 30 units TID 08/25/18 Oxycodone HCl/Acetaminophen [Oxycodone-Acetaminophen 10-325] 1 tablet PO TID PRN 08/25/18 Sodium Bicarbonate - 2 tab TID 08/25/18 Tizanidine HCl 2 mg TID 08/25/18 Family Disease History - Family Disease History Family Disease History: Diabetes: Father ( 50s cycling accident), Other: Mother (alive HTN), Sister (healthy and living) Review of Systems - Review of Systems Constitutional: reports: Lethargy Eyes: reports: Blurred Vision HENT: reports: No Symptoms Neck: reports: No Symptoms Respiratory: reports: Exercise Intolerance, SOB Gastrointestinal: reports: Bloating, Constipation Genitourinary: reports: Frequency Musculoskeletal: reports: Muscle Pain, Muscle Cramps, Muscle Weakness Integumentary: reports: Erythema, Lesions, Pruritis, Rash Neurological: reports: Numbness Endocrine: reports: Unexplained Weight Gain Physical Exam Vital Signs: Vital Signs Temperature 98.4 F 09/03/18 19:03 Pulse Rate 63 09/03/18 19:03 Respiratory Rate 18 09/03/18 19:03 Blood Pressure 118/57 L 09/03/18 19:03 O2 Sat by Pulse Oximetry (%) 96 09/01/18 21:00 Constitutional: Yes: Anxious Eyes: Yes: EOM Intact HENT: Yes: Normocephalic Neck: Yes: Trachea Midline Cardiovascular: Yes: Regular Rate and Rhythm Respiratory: Yes: CTA Bilaterally ...Rectal Exam: Yes: Deferred Renal/: Yes: WNL Breast(s): Yes: WNL Musculoskeletal: Yes: Back Pain, Muscle Pain, Muscle Weakness Extremities: Yes: WNL Edema: Yes Edema: LLE: 2+, RLE: 2+ Integumentary: Yes: Erythema, Rash, Onychomycosis Wound/Incision: Yes: Dressing Dry and Intact Neurological: Yes: Alert, Oriented Labs: CBC, BMP 09/02/18 08:50 09/03/18 05:45 Problem List - Problems (1) Type 2 diabetes mellitus with diabetic nephropathy Code(s): E11.21 - TYPE 2 DIABETES MELLITUS WITH DIABETIC NEPHROPATHY Qualifiers: Diabetes mellitus predatory animal exterminator insulin use: with penitentiary use Qualified Code( s): E11.21 - Type 2 diabetes mellitus with diabetic nephropathy; Z79.4 - [facility] (current) use of insulin (2) Abscess Code(s): L02.91 - CUTANEOUS ABSCESS, UNSPECIFIED (3) Acute kidney injury superimposed on CKD Code(s): N17.9 - ACUTE KIDNEY FAILURE, UNSPECIFIED; N18.9 - CHRONIC KIDNEY DISEASE, UNSPECIFIED (4) CHF (congestive heart failure) Code(s): I50.9 - HEART FAILURE, UNSPECIFIED (5) CKD (chronic kidney disease) Code(s): N18.9 - CHRONIC KIDNEY DISEASE, UNSPECIFIED Qualifiers: Chronic kidney disease stage: unspecified stage Qualified Code(s): N18.9 - Chronic kidney disease, unspecified (6) Morbid obesity Code(s): E66.01 - MORBID (SEVERE) OBESITY DUE TO EXCESS CALORIES (7) CKD (chronic kidney disease) stage 3, GFR 30-59 ml/min Code(s): N18.3 - CHRONIC KIDNEY DISEASE, STAGE 3 (MODERATE) (8) Adult onset hypothyroidism Assessment/Plan Current Active Problems dm type 2 ckd Abscess (Acute) Acute kidney injury superimposed on CKD (Acute) CHF (congestive heart failure) (Chronic) CKD (chronic kidney disease) (Chronic) Morbid obesity (Chronic) sammie thyroiditis Abnormal Lab Results 09/03/18 05:45 Potassium 5.4 H Chloride 113 H Carbon Dioxide 20 L Anion Gap 7 L BUN 49 H Creatinine 4.2 H Random Glucose 219 H Calcium 7.5 L Phosphorus 5.6 H Magnesium 1.6 L Total Bilirubin < 0.1 L Total Protein 6.0 L Albumin 2.0 L Laboratory Results - last 24 hr 09/02/18 09/03/18 09/03/18 21:42 05:45 06:39 Sodium 140 Potassium 5.4 H Chloride 113 H Carbon Dioxide 20 L Anion Gap 7 L BUN 49 H Creatinine 4.2 H Creat Clearance w eGFR 15.10 POC Glucometer 179 194 Random Glucose 219 H Calcium 7.5 L Phosphorus 5.6 H Magnesium 1.6 L Total Bilirubin < 0.1 L AST 18 ALT 26 Alkaline Phosphatase 109 Total Protein 6.0 L Albumin 2.0 L 09/03/18 09/03/18 11:58 16:50 Sodium Potassium Chloride Carbon Dioxide Anion Gap BUN Creatinine Creat Clearance w eGFR POC Glucometer 172 140 Random Glucose Calcium Phosphorus Magnesium Total Bilirubin AST ALT Alkaline Phosphatase Total Protein Albumin Laboratory Tests 08/31/18 09/03/18 09/03/18 06:15 05:45 06:39 Sodium 140 Potassium 5.4 H Chloride 113 H Carbon Dioxide 20 L Anion Gap 7 L BUN 49 H Creatinine 4.2 H Creat Clearance w eGFR 15.10 POC Glucometer 194 TSH 9.14 H D Free T4 0.86 09/03/18 09/03/18 11:58 16:50 Sodium Potassium Chloride Carbon Dioxide Anion Gap BUN Creatinine Creat Clearance w eGFR POC Glucometer 172 140 TSH Free T4 plan: start synthroid 25mcg q am Current Medications Generic Name Dose Route Start Last Admin Trade Name Freq PRN Reason Stop Dose Admin Acetaminophen 325 mg 08/25/18 14:00 09/02/18 22:19 Tylenol - PO 325 mg Q8H PRN Administration PAIN 5-10 Amlodipine Besylate 10 mg 08/31/18 20:05 09/03/18 09:01 Norvasc - PO 10 mg DAILY MARY Administration Aspirin 81 mg 08/26/18 10:00 09/03/18 09:01 Ecotrin - PO 81 mg DAILY MARY Administration Atorvastatin Calcium 40 mg 08/25/18 22:00 09/02/18 21:44 Lipitor - PO 40 mg HS MARY Administration Calcium Acetate 667 mg 09/02/18 12:15 09/03/18 17:44 Phoslo - PO 667 mg TIDCM MARY Administration Clindamycin HCl 300 mg 08/28/18 13:45 09/03/18 13:39 Cleocin - PO 300 mg TID MARY Administration Diltiazem HCl 240 mg 08/26/18 12:00 09/03/18 09:01 Cardizem Cd - PO 240 mg DAILY MARY Administration Docusate Sodium 300 mg 09/02/18 22:00 09/02/18 21:44 Colace - PO 300 mg HS MARY Administration Heparin Sodium (Porcine) 5,000 unit 08/28/18 14:00 09/03/18 13:40 Heparin - SQ 5,000 unit TID MARY Administration Insulin Aspart 1 vial 08/25/18 07:00 09/03/18 17:43 Novolog Vial Sliding Scale - SQ Not Given [facility] Protocol Insulin Detemir 45 units 08/28/18 22:00 09/03/18 06:40 Levemir Vial SQ 45 unit BID@0700,2200 MARY Administration Lactobacillus Acidophilus 1 tab 08/28/18 12:45 09/03/18 09:01 Bacid - PO 1 tab DAILY MARY Administration
--- NOTE | 2018-09-03 20:57 | PN ---
Progress Note (short form) - Note Progress Note: Problems 1. CKD 2. CHF 3. hx of DFU 4. hx of osteomyelitis 5. hx hyperkalemia 6. DM 7. HTN 8. obesity 9. anemia 10. hx of urinary obstruction/high post void residual 11. nephrotic range proteinuria 12. gluteal abscess 13. fluid overload Active Medications Acetaminophen (Tylenol -) 325 mg PO Q8H PRN PRN Reason: PAIN 5-10 Last Admin: 09/02/18 22:19 Dose: 325 mg Amlodipine Besylate (Norvasc -) 10 mg PO DAILY [facility] Last Admin: 09/03/18 09:01 Dose: 10 mg Aspirin (Ecotrin -) 81 mg PO DAILY [facility] Last Admin: 09/03/18 09:01 Dose: 81 mg Atorvastatin Calcium (Lipitor -) 40 mg PO HS [facility] Last Admin: 09/02/18 21:44 Dose: 40 mg Calcium Acetate (Phoslo -) 667 mg PO TIDCM [facility] Last Admin: 09/03/18 17:44 Dose: 667 mg Clindamycin HCl (Cleocin -) 300 mg PO TID [facility] Last Admin: 09/03/18 13:39 Dose: 300 mg Diltiazem HCl (Cardizem Cd -) 240 mg PO DAILY [facility] Last Admin: 09/03/18 09:01 Dose: 240 mg Docusate Sodium (Colace -) 300 mg PO HS [facility] Last Admin: 09/02/18 21:44 Dose: 300 mg Heparin Sodium (Porcine) (Heparin -) 5,000 unit SQ TID [facility] Last Admin: 09/03/18 13:40 Dose: 5,000 unit Insulin Aspart (Novolog Vial Sliding Scale -) 1 vial SQ [facility]; Protocol Last Admin: 09/03/18 17:43 Dose: Not Given Insulin Detemir (Levemir Vial) 45 units SQ BID@0700,2200 [facility] Last Admin: 09/03/18 06:40 Dose: 45 unit Lactobacillus Acidophilus (Bacid -) 1 tab PO DAILY [facility] Last Admin: 09/03/18 09:01 Dose: 1 tab Levothyroxine Sodium (Synthroid -) 25 mcg PO DAILY@0700 [facility] Last Vital Signs Temp Pulse Resp BP Pulse Ox 98.4 F 63 18 118/57 L 96 09/03/18 19:03 09/03/18 19:03 09/03/18 19:03 09/03/18 19:03 09/01/18 21:00 Lungs clear Heart reg abd soft nontender ext no edema CBC, BMP 09/03/18 05:45 CBC, BMP 09/02/18 08:50 09/02/18 08:50 CBC, BMP 09/01/18 06:30 09/01/18 06:30 CKD renal function stable no uremix symptoms Plan- continue to monitor renal function and for signs or symptoms of uremia same rx for now f/u labs
[2018-09-03] MEDS: ATORVASTATIN CA 40 MG TABLET (FP) PO SCH (22:04)
[2018-09-03] MEDS: DOCUSATE SODIUM 100 MG CAPSULE (FP) PO SCH (22:04)
[2018-09-03] MEDS ORDERED: oxyCODONE HCL 5 MG TABLET PO ONE (23:42)
[2018-09-04] MEDS: INSULIN (LEVEMIR) 100 UNITS/ML UNITS SQ SCH (06:35)
[2018-09-04] MEDS: INSULIN SLIDING SCALE (NOVOLOG) 1 VIAL SQ SCH ×3 (06:35→17:13)
[2018-09-04] MEDS: HEPARIN NA (PORCINE) 5,000 UNITS/ML 1ML VIAL SQ SCH ×2 (06:36→13:54)
[2018-09-04] MEDS ORDERED: LEVOTHYROXINE NA 25 MCG TABLET (FP) PO SCH (07:00)
[2018-09-04 07:50] LABS: BASO % 0.3 % (0-2.0); EOS % 4.7 % (0-4.5); HEMATOCRIT 25.4 % (35.4-49); HEMOGLOBIN 8.4 GM/dL (11.7-16.9); LYMPH % 27.7 % (8-40); MCH 26.7 pg (25.7-33.7); MCHC 32.9 g/dl (32.0-35.9); MEAN PLT VOLUME 7.8 fl (7.5-11.1); MONO % 8.8 % (3.8-10.2); NEUT % 58.5 % (42.8-82.8); PLATELET COUNT 220 K/MM3 (134-434); RBC 3.14 M/mm3 (4.00-5.60); RDW 17.2 % (11.9-15.9); WHITE BLOOD COUNT 5.7 K/mm3 (4.0-10.0)
[2018-09-04] MEDS: CLINDAMYCIN HCL 150 MG CAPSULE (FP) PO SCH (08:14)
[2018-09-04 08:22] LABS: ANION GAP 7 MMOL/L (8-16); BLOOD UREA NITROGEN 50 mg/dL (7-18); CALCIUM 7.9 mg/dL (8.5-10.1); CHLORIDE 114 mmol/L (98-107); CO2 20 mmol/L (21-32); CREATININE 3.7 mg/dL (0.55-1.3); GLUCOSE,RANDOM 140 mg/dL (74-106); MAGNESIUM 1.8 mg/dL (1.8-2.4); PHOSPHOROUS 5.2 mg/dL (2.5-4.9); POTASSIUM 5.1 mmol/L (3.5-5.1); SODIUM 140 mmol/L (136-145)
[2018-09-04] MEDS: amLODIPine BESYLATE 5 MG TABLET (FP) PO SCH (09:05)
[2018-09-04] MEDS: LACTOBACILLUS ACIDOPHILUS 1 TABLET PO SCH (09:06)
[2018-09-04] MEDS: CALCIUM ACETATE 667 MG CAPSULE (FP) PO SCH ×3 (09:06→17:00)
[2018-09-04] MEDS: ASPIRIN COATED 81 MG TABLET.EC PO SCH (09:06)
[2018-09-04] MEDS ORDERED: FUROSEMIDE 40 MG TABLET (FP) PO ONE (14:02)
[2018-09-04 14:30] VITALS: BMI 48.4
--- NOTE | 2018-09-04 14:56 | DS ---
Physical Exam: SUBJECTIVE: Patient seen and examined at bedside. No acute events overnight. OBJECTIVE: Vital Signs Period Temp Pulse Resp BP Sys/Swartz Pulse Ox Last 24 Hr 98.1 F-99 F 63-78 18-20 118-149/57-77 98-98 PHYSICAL EXAM GENERAL: NAD HEAD: Atraumatic/Normocephalic EYES: EOMI Sclera clear ENT: MMM LUNGS: Clear to ausculatation b/l HEART: RRR No MRG S1S2 ABDOMEN: Obese NDNT EXTREMITIES: open ulcer left toe nonoozing no odor appreciated. Buttock: Left buttock with ~2 cm open wound. Right buttock with coin sized induration. Examined again today 09/04/18. NEUROLOGICAL: CN 2-12 intact PSYCH: Normal mood, normal affect LABS Laboratory Results - last 24 hr 09/03/18 09/03/18 09/04/18 16:50 22:03 06:34 WBC RBC Hgb Hct MCV MCH MCHC RDW Plt Count MPV Absolute Neuts (auto) Neutrophils % Lymphocytes % Monocytes % Eosinophils % Basophils % Nucleated RBC % Sodium Potassium Chloride Carbon Dioxide Anion Gap BUN Creatinine Creat Clearance w eGFR POC Glucometer 140 201 138 Random Glucose Calcium Phosphorus Magnesium 09/04/18 09/04/18 09/04/18 06:40 06:40 11:14 WBC 5.7 RBC 3.14 L Hgb 8.4 L Hct 25.4 L MCV 81.0 MCH 26.7 MCHC 32.9 RDW 17.2 H Plt Count 220 MPV 7.8 Absolute Neuts (auto) 3.3 Neutrophils % 58.5 Lymphocytes % 27.7 Monocytes % 8.8 Eosinophils % 4.7 H Basophils % 0.3 Nucleated RBC % 0 Sodium 140 Potassium 5.1 Chloride 114 H Carbon Dioxide 20 L Anion Gap 7 L BUN 50 H Creatinine 3.7 H Creat Clearance w eGFR 17.48 POC Glucometer 158 Random Glucose 140 H Calcium 7.9 L Phosphorus 5.2 H Magnesium 1.8 HOSPITAL COURSE: Date of Admission:08/24/18 Patient is a 52 year old male with IDDM (noncompliant), HTN, diastolic CHF, and CKD, who presented to the ED due to worsening left buttock abscess in the last month. While in ED, pt's Glucose was noted to be 855. Pt was given Insulin 6 units sq, 18 units IV given at the ED. Pt was placed on Vanc/Zosyn for empiric treatment of his left buttock abscess.Pt was also evaluated by general surgery, Dr Therese Kaur, for possible I and D of his gluteal abscess; surgery did not believe that an I and D was necessary and that pt would be best treated with antibiotics. Sliding scale was started in hospital and pt was placed on levemir 40 U SQ BID. A1C was 15 and BGMs were still elevated so pt's levemir was increased to 45 U SQ BID. Pt's Bun/Cr was noted to be 36/3.2. Urine and blood cultures were both negative. Pt's wound culture grew MRSA. Wound care and I.D were consulted. Pt's random vancomycin level reach 21.9 and pt's Cr was elevated at 4.2. a result, vanco was witheld; pt was then switched to Clindamycin per ID. Furthermore, pt's lasix was stopped in light of his JAC on CKD. Urine eosinophils, ordered to assess for possible Acute Interstitial Nephritis, was negative. Lasix was temporarily held due to pt's rising Cr. Nephrology was consulted who d/c'ed pt's fluids and resumed lasix on a daily babsis as needed. Pt was also noted to have a high TSH level with a normal T4 level and was started on synthroid by his finished carpet inspector. Pt was strongly advised to see his foundry molder Dr Castle on Tuesday of this week as well as follow up with Endocrinology as outpatient to establish routine diabetic care and management. Also informed to f/u with wound care, Dr Andrés Kitchen. Date of Discharge: 09/04/18 Minutes to complete discharge: 35 Discharge Summary Reason For Visit: MORBIBD OBESITY,ABSCESS,UNCONTROLLED TYPE 2 DIABET Current Active Problems Abscess (Acute) Acute kidney injury superimposed on CKD (Acute) Adult onset hypothyroidism (Acute) Type 2 diabetes mellitus with diabetic nephropathy (Acute) CHF (congestive heart failure) (Chronic) CKD (chronic kidney disease) (Chronic) Morbid obesity (Chronic) Condition: Improved - Instructions Diet, Activity, Other Instructions: You presented to the hospital due to significantly elevated blood sugar levels as well as an open wound on your buttock. You were found to have an underactive thyroid. Please follow up with the finished carpet inspector for this. Please also follow up with him for your diabetes. A refereel has been provided for you in your discharge papers. Please follow up with Dr Kaur for the wound on your buttock. Apply Bacitracin 2x per day. Please follow up with the kidney doctor, Dr Castle, this tuesday09/06/18. It is very improtant for you to re-check your kidney levels to make sure your kidney function is within normal range. Added Phoslo to your regimen, have your phosphorous level checked as well. Please follow up with Dr Daniel Kitchen for the open wound on your left big toe. and the Buttock wound. Please return to the emergency department if you begin to experience chest pain , shortness of breath, nausea/vomiting or any other abnormal symptoms. Referrals: Pan Cox MD [Staff Physician] - 3 Weeks Thomas Kitchen MD [Staff Physician] - 1 Week August Castle MD [Primary Care Provider] - 09/06/18 Disposition: HOME - Home Medications Comprehensive Discharge Medication List: Ambulatory Orders Aspirin [ASA -] 81 mg DAILY 08/25/18 Atorvastatin Ca [Lipitor] 40 mg DAILY 08/25/18 Cholecalciferol (Vitamin D3) [Vitamin D3] 50,000 units PO WEEKLY 08/25/18 Diltiazem Cd [Cardizem Cd -] 240 mg DAILY 08/25/18 Furosemide 40 mg BID 08/25/18 Sodium Bicarbonate - 2 tab TID 08/25/18 Tizanidine HCl 2 mg TID 08/25/18 Amlodipine Besylate [Norvasc -] 10 mg PO DAILY tablet 09/04/18 Aspirin Coated [Ecotrin -] 81 mg PO DAILY tablet.ec 09/04/18 Atorvastatin Ca [Lipitor] 40 mg PO HS tablet 09/04/18 Bacitracin - [Bacitracin Topical Ointment -] 1 applic TP BID #30 g 09/04/18 Calcium Acetate [Phoslo -] 667 mg PO TIDCM #30 capsule 09/04/18 Docusate Sodium [Colace -] 300 mg PO HS capsule 09/04/18 Insulin Glargine,Hum.rec.anlog [Basaglar Kwikpen U-100] 80 unit SQ DAILY #100 insuln.pen 09/04/18 Insulin Lispro [Humalog] 30 units SQ TID #5 cartridge 09/04/18 Lactobacillus Acidophilus [Bacid -] 1 each PO BID #60 capsule 09/04/18 Levothyroxine [Synthroid -] 25 mcg PO DAILY@0700 #30 tablet 09/04/18 This patient is new to me today: No Emergency Visit: Yes ED Registration Date: 08/24/18 Care time: The patient presented to the Emergency Department on the above date and was hospitalized for further evaluation of their emergent condition. Critical Care patient: No - Discharge Referral Referred to [facility] Med [facility] No
[2018-09-04 16:43] VITALS: BP 142/66; PULSE 66; TEMP 98
--- NOTE | 2018-09-04 17:50 | PN ---
Teaching Attending Note Name of Resident: Bryan Huerta ATTENDING PHYSICIAN STATEMENT I saw and evaluated the patient. I reviewed the resident's note and discussed the case with the resident. I agree with the resident's findings and plan as documented. SUBJECTIVE: Patient is comfortable with no acute distress, no further discharge from his wound. no fever or chills OBJECTIVE: Vital Signs Temperature 98 F 09/04/18 16:42 Pulse Rate 66 09/04/18 16:42 Respiratory Rate 18 09/04/18 16:42 Blood Pressure 142/66 09/04/18 16:42 O2 Sat by Pulse Oximetry (%) 98 09/04/18 08:22 GENERAL: no acute distress HEAD: Normal with no signs of trauma. EYES: EOMI Sclera clear, ENT: MMM NECK: Trachea midline, full range of motion, supple. LUNGS: CTAB ,HEART: RRR NL S1S2 ABDOMEN: Obese nondistended nontender EXTREMITIES: open ulcer left toe with eschar , no drainage, no odor appreciated. Buttock: Left buttock with 2 cm open wound, no further drainage, Right buttock with coin sized closed wound NEUROLOGICAL: CN 2-12 intact PSYCH: Normal mood, normal affect. CBCD WBC 5.7 K/mm3 (4.0-10.0) 09/04/18 06:40 RBC 3.14 M/mm3 (4.00-5.60) L 09/04/18 06:40 Hgb 8.4 GM/dL (11.7-16.9) L 09/04/18 06:40 Hct 25.4 % (35.4-49) L 09/04/18 06:40 MCV 81.0 fl (80-96) 09/04/18 06:40 MCHC 32.9 g/dl (32.0-35.9) 09/04/18 06:40 RDW 17.2 % (11.9-15.9) H 09/04/18 06:40 Plt Count 220 K/MM3 (134-434) 09/04/18 06:40 MPV 7.8 fl (7.5-11.1) 09/04/18 06:40 CMP Sodium 140 mmol/L (136-145) 09/04/18 06:40 Potassium 5.1 mmol/L (3.5-5.1) 09/04/18 06:40 Chloride 114 mmol/L (98-107) H 09/04/18 06:40 Carbon Dioxide 20 mmol/L (21-32) L 09/04/18 06:40 Anion Gap 7 MMOL/L (8-16) L 09/04/18 06:40 BUN 50 mg/dL (7-18) H 09/04/18 06:40 Creatinine 3.7 mg/dL (0.55-1.3) H 09/04/18 06:40 Creat Clearance w eGFR 17.48 (>60) 09/04/18 06:40 Random Glucose 140 mg/dL (74-106) H 09/04/18 06:40 Calcium 7.9 mg/dL (8.5-10.1) L 09/04/18 06:40 Total Bilirubin < 0.1 mg/dL (0.2-1) L 09/03/18 05:45 AST 18 U/L (15-37) 09/03/18 05:45 ALT 26 U/L (13-61) 09/03/18 05:45 Alkaline Phosphatase 109 U/L (45-117) 09/03/18 05:45 Total Protein 6.0 g/dl (6.4-8.2) L 09/03/18 05:45 Albumin 2.0 g/dl (3.4-5.0) L 09/03/18 05:45 Current Medications Generic Name Dose Route Start Last Admin Trade Name Freq PRN Reason Stop Dose Admin Acetaminophen 325 mg 08/25/18 14:00 09/02/18 22:19 Tylenol - PO 325 mg Q8H PRN Administration PAIN 5-10 Amlodipine Besylate 10 mg 08/31/18 20:05 09/04/18 09:05 Norvasc - PO 10 mg DAILY MARY Administration Aspirin 81 mg 08/26/18 10:00 09/04/18 09:06 Ecotrin - PO 81 mg DAILY MARY Administration Atorvastatin Calcium 40 mg 08/25/18 22:00 09/03/18 22:04 Lipitor - PO 40 mg HS MARY Administration Calcium Acetate 667 mg 09/02/18 12:15 09/04/18 17:00 Phoslo - PO 667 mg TIDCM MARY Administration Diltiazem HCl 240 mg 08/26/18 12:00 09/04/18 09:06 Cardizem Cd - PO 240 mg DAILY MARY Administration Docusate Sodium 300 mg 09/02/18 22:00 09/03/18 22:04 Colace - PO 300 mg HS MARY Administration Heparin Sodium (Porcine) 5,000 unit 08/28/18 14:00 09/04/18 13:54 Heparin - SQ 5,000 unit TID MARY Administration Insulin Aspart 1 vial 08/25/18 07:00 09/04/18 17:13 Novolog Vial Sliding Scale - SQ 4 unit ACHS MARY Administration Protocol Insulin Detemir 45 units 08/28/18 22:00 09/04/18 06:35 Levemir Vial SQ 45 unit BID@0700,2200 [facility] Administration Lactobacillus Acidophilus 1 tab 08/28/18 12:45 09/04/18 09:06 Bacid - PO 1 tab DAILY MARY Administration Levothyroxine Sodium 25 mcg 09/04/18 07:00 09/04/18 08:15 Synthroid - PO 25 mcg DAILY@0700 MARY Administration Home Medications Medication Instructions Recorded Aspirin [ASA -] 81 mg DAILY 08/25/18 Atorvastatin Ca [Lipitor] 40 mg DAILY 08/25/18 Cholecalciferol (Vitamin D3) 50,000 units PO WEEKLY 08/25/18 [Vitamin D3] Diltiazem Cd [Cardizem Cd -] 240 mg DAILY 08/25/18 Furosemide 40 mg BID 08/25/18 Sodium Bicarbonate - 2 tab TID 08/25/18 Tizanidine HCl 2 mg TID 08/25/18 Amlodipine Besylate [Norvasc -] 10 mg PO DAILY tablet 09/04/18 Aspirin Coated [Ecotrin -] 81 mg PO DAILY tablet.ec 09/04/18 Atorvastatin Ca [Lipitor] 40 mg PO HS tablet 09/04/18 Bacitracin - [Bacitracin Topical 1 applic TP BID #30 g 09/04/18 Ointment -] Calcium Acetate [Phoslo -] 667 mg PO TIDCM #30 capsule 09/04/18 Docusate Sodium [Colace -] 300 mg PO HS capsule 09/04/18 Insulin Glargine,Hum.rec.anlog 80 unit SQ DAILY #100 insuln.pen 09/04/18 [Basaglar Kwikpen U-100] Insulin Lispro [Humalog] 30 units SQ TID #5 cartridge 09/04/18 Lactobacillus Acidophilus [Bacid -] 1 each PO BID #60 capsule 09/04/18 Levothyroxine [Synthroid -] 25 mcg PO DAILY@0700 #30 tablet 09/04/18 ASSESSMENT AND PLAN: Patient is a 52 y/o man with h/o DM , HTN, Asthma, HLP, CKD, chronic back pain, OM of L metatarsal head , recurrent skin infections especially in gluteal area who presented with gluteal pain and was found to have gluteal abscesses. # JAC on CKD: on lasix po x 1 dose today again, elevated cr.4.2--> 3.7 today , discussed with dr sena, patient can be discharged home on PO lasix , the same dose that he is taking at home. # Hyperphosphetemia:on Phoslo started 667mg po tid continue as per nephro. post meals # MRSA Gluteal abscesses s/p drainage: on clindamycin , last dose today , seen the patient with dr. joseph. No surgical intervention needed since drained. 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 camp for further care as an outpatient, follow in 6 weeks. ar patient home,
== END 2018-09-04 18:58 | disposition home or self-care (01) | DRG 383 ==
LOC: JER 19:10 → JERBED 22:52 → J7W 08-25 09:08
PROVIDERS: ADMIT Internal Medicine; ATTEND Internal Medicine
DX: L02.31 Cutaneous abscess of buttock (principal); N17.9 Acute kidney failure, unspecified; E11.22 Type 2 diabetes mellitus with diabetic chronic kidney disease; I13.0 Hypertensive heart and chronic kidney disease with heart failure and stage 1 through stage 4 chronic kidney disease, or unspecified chronic kidney disease; E66.01 Morbid (severe) obesity due to excess calories; E11.65 Type 2 diabetes mellitus with hyperglycemia; E87.1 Hypo-osmolality and hyponatremia; E87.5 Hyperkalemia; N18.4 Chronic kidney disease, stage 4 (severe); Z68.42 Body mass index [BMI] 45.0-49.9, adult; E87.2 Acidosis; E88.09 Other disorders of plasma-protein metabolism, not elsewhere classified; I50.32 Chronic diastolic (congestive) heart failure; E11.21 Type 2 diabetes mellitus with diabetic nephropathy; E83.39 Other disorders of phosphorus metabolism; Z79.4 Long term (current) use of insulin; D64.9 Anemia, unspecified; I45.10 Unspecified right bundle-branch block; Z91.14 Patient's other noncompliance with medication regimen; B95.62 Methicillin resistant Staphylococcus aureus infection as the cause of diseases classified elsewhere; E06.3 Autoimmune thyroiditis
CPT/HCPCS: 36415; 71045-TC-FY; 76775-TC; 80048; 80053; 81003; 81015; 82009; 82803; 82962; 82977; 83036; 83605; 83735; 84100; 84439; 84443; 85025; 85027; 85651; 87040; 87070; 87086; 87186; 87205; 93005; 93010; 93925-TC; 93970-TC; 97116-GP; 97161-GP; 99283-25; G0480; J0131; J1644; J7030

== ENCOUNTER 2019-12-12 04:33 | Inpatient (IN) | payer OTHER ==
[2019-12-12] MEDS ORDERED: BUPIVACAINE HCL 50 ML ONE (14:15)
[2019-12-12] MEDS ORDERED: MIDAZOLAM HCL 2 MG/2 ML SINGLE DOSE VIAL ONE ×3 (14:18→15:09)
[2019-12-12] MEDS ORDERED: MINERAL OIL 25 ML OIL ONE ×2 (14:20→15:50)
[2019-12-12] MEDS ORDERED: LIDOCAINE 1%-EPI 1:100,000 30 ML MDV IJ ONE (14:20)
[2019-12-12] MEDS ORDERED: ceFAZolin SODIUM 1 GM VIAL IVPB ONE (15:08)
[2019-12-12] MEDS ORDERED: ceFAZolin SODIUM 1 GM VIAL ONE (15:42)
[2019-12-12] MEDS ORDERED: ACETAMINOPHEN 325 MG TABLET (FP) PO PRN (17:04)
[2019-12-12] MEDS: oxyCODONE HCL 5 MG TABLET PO PRN (20:21)
[2019-12-12] MEDS: ACETAMINOPHEN 325 MG TABLET (FP) PO PRN (20:23)
[2019-12-12] MEDS: CALCIUM ACETATE 667 MG CAPSULE (FP) PO SCH (22:06)
[2019-12-12] MEDS: SEVELAMER CARBONATE 800 MG TAB (FP) PO SCH (22:06)
[2019-12-12] MEDS: ATORVASTATIN CA 40 MG TABLET (FP) PO SCH (22:10)
[2019-12-12] MEDS: APIXABAN 2.5 MG TABLET PO SCH (22:10)
[2019-12-12] MEDS: INSULIN SLIDING SCALE (NOVOLOG) 1 VIAL SQ SCH (22:11)
[2019-12-12] MEDS: CEFAZOLIN 2 GM/D5W 2 GM/50 ML ML IVPB SCH (23:32)
[2019-12-13] MEDS: ACETAMINOPHEN 325 MG TABLET (FP) PO PRN ×3 (00:20→20:54)
[2019-12-13] MEDS: oxyCODONE HCL 5 MG TABLET PO PRN ×4 (00:20→20:54)
[2019-12-13] MEDS: CEFAZOLIN 2 GM/D5W 2 GM/50 ML ML IVPB SCH (06:00)
[2019-12-13] MEDS: INSULIN SLIDING SCALE (NOVOLOG) 1 VIAL SQ SCH ×4 (06:01→21:02)
[2019-12-13] MEDS: INSULIN (LEVEMIR) 100 UNITS/ML UNITS SQ SCH (06:01)
[2019-12-13] MEDS: LEVOTHYROXINE NA 25 MCG TABLET (FP) PO SCH (06:02)
[2019-12-13 07:45] LABS: HEMOGLOBIN 10.8 GM/dL (11.7-16.9); MCH 27.3 pg (25.7-33.7); MCHC 31.7 g/dl (32.0-35.9); MEAN CELL VOLUME 85.9 fl (80-96); MEAN PLT VOLUME 7.2 fl (7.5-11.1); PLATELET COUNT 299 K/MM3 (134-434); RBC 3.95 M/mm3 (4.00-5.60); RDW 19.4 % (11.9-15.9); WHITE BLOOD COUNT 6.4 K/mm3 (4.0-10.0)
[2019-12-13] MEDS ORDERED: PT OWN MED DRAWER 7, Y5N ONE ×4 (07:58→17:07)
[2019-12-13] MEDS: SEVELAMER CARBONATE 800 MG TAB (FP) PO SCH ×3 (08:01→17:15)
[2019-12-13 08:04] LABS: CALCIUM 8.8 mg/dL (8.5-10.1); CREATININE 6.1 mg/dL (0.55-1.3)
[2019-12-13] MEDS: CALCIUM ACETATE 667 MG CAPSULE (FP) PO SCH ×3 (09:32→17:15)
[2019-12-13] MEDS: amLODIPine BESYLATE 10 MG TABLET (FP) PO SCH (09:32)
[2019-12-13] MEDS: ASPIRIN 81 MG CHEWABLE TABLETS PO SCH (09:32)
[2019-12-13] MEDS: APIXABAN 2.5 MG TABLET PO SCH ×2 (09:32→21:02)
[2019-12-13] MEDS ORDERED: [UNRECOGNIZED DRUG - OTHER] MC SCH (10:00)
[2019-12-13] MEDS ORDERED: ENOXAPARIN NA (PORCINE) 40 MG/0.4 ML DISP.SYRIN SQ SCH (10:00)
[2019-12-13] MEDS ORDERED: PATIENT'S OWN MEDICATION (NON-FORMULARY) (Insulin Glargine,Hum.Rec.Anlog [Basaglar Kwikpen SQ SCH (10:00)
--- NOTE | 2019-12-13 11:29 | OP ---
<Randy Lemon - Last Filed: 12/13/19 11:27> Operative Note - Note: Operative Date: 12/12/19 Pre-Operative Diagnosis: acute wound left lower leg Operation: Left leg wound excisional debridement and split skin graft Post-Operative Diagnosis: Same as Pre-op Surgeon: Carlos Enrique Oden Manager Ent: Randy Lemon Anesthesiologist/CAR SEALER: Oscar Hung Estimated Blood Loss (mls): 10 Operative Report Dictated: Yes <Carlos Enrique Oden - Last Filed: 12/16/19 13:55> Operative Note - Note: Operation: Application of VAC machine/dressing Findings: Open wounds Left lateral Lower leg and Lateral ankle Procedure : Patient was brought to OR, he was seen in the holding area, Procedure was explained again. Risks were discussed, all questions answered Patient is aware that skin graft may be partially healed, in some cases. Post Op recovery is extended time, grafts may be affected with leg swelling, some risk are higher in his case due to co-morbidities including but not limited to obesity , compromised kidney function . Graft site always leave scar which may be higher pigmentation or less causing difference in color. In some patients with keloid tendency scar may be thicker. Procedure described separately. EBL Minimal Patient tolerated procedure well and send to RR in stable condition Anesthesia: Spinal Specimens Removed: Yes, debrided tissue Instrument used (Debridements only): Dermatome/Mesher machine Drains & Tubes with Location: None. VAC only
--- NOTE | 2019-12-13 11:30 | SURG ---
Surgery Hoop Cutter Note Hoop Cutter: Randy Lemon PA-C Date of Service: 12/12/19 Diagnosis: acute wound left lower leg Procedure: Left leg wound excisional debridement and split skin graft I was present for the entirety of the operative procedure. For further detail, please refer to operative report.
[2019-12-13] MEDS ORDERED: INSULIN (NOVOLOG) ASPART 100 UNITS/ML 10ML VIAL ONE (11:37)
--- NOTE | 2019-12-13 11:59 | CON.NEP ---
Consult Consult Specialty:: Nephrology Reason for Consultation:: esrd - History of Present Illness Chief Complaint: s/p skin graft History of Present Illness: This is a 54 year old diabetic man who is on hemodialysis and required a skin graft. He is currently in stable condition. - History Source History Provided By: Patient - Past Medical History Cardio/Vascular: Yes: HTN, Hyperlipdemia Pulmonary: Yes: Asthma, Sleep Apnea (is suspected but has not had formal studies), Other (chronic cough (nonproductive) x1 year) Gastrointestinal: Yes: Other (obesity) Renal/: Yes: Renal Failure, Renal Inusuff, Other Infectious Disease: Yes: MRSA (right buttock abscess several years ago), Other (osteomyelitis left foot, group a strep sepsis with bacteremia and soft tissue infection) Endocrine: Yes: Diabetes Mellitus (with neuropathyu and left Charcot foot), Other (morbid obesity) Dermatology: Yes: Cellulitis (lower extremities) - Alcohol/Substance Use Hx Alcohol Use: Yes (rare, none for 2 months) History of Substance Use: reports: None - Smoking History Smoking history: Never smoked Have you smoked in the past 12 months: No Aproximately how many cigarettes per day: 0 - Social History Usual Living Arrangement: With Child ADL: 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 History of Recent Travel: No Home Medications - Allergies Allergies/Adverse Reactions: Allergies Allergy/AdvReac Type Severity Reaction Status Date / Time No Known Allergies Allergy Verified 12/11/19 19:25 - Home Medications Home Medications: Ambulatory Orders Acetaminophen 650 mg PO Q6H PRN 10/05/19 Apixaban [Eliquis -] 2.5 mg PO BID #28 tablet 10/12/19 Atorvastatin Ca [Lipitor] 40 mg PO DAILY #30 tablet 10/12/19 Calcium Acetate [Phoslo -] 1,334 mg PO TIDCM #60 capsule 10/12/19 Diltiazem Cd [Cardizem Cd -] 240 mg PO DAILY #30 cap.sr 10/12/19 Insulin Glargine,Hum.rec.anlog [Basaglar Kwikpen U-100] 80 unit SQ DAILY #100 insuln.pen 10/12/19 Levothyroxine [Synthroid -] 25 mcg PO DAILY@0700 #30 tablet 10/12/19 Sevelamer Carbonate [Renvela -] 800 mg PO TIDCM #60 tab 10/12/19 Amlodipine Besylate 10 mg PO DAILY 10/27/19 Cane 1 each MC DAILY #1 each 11/02/19 Gauze Bandage [Bandage Roll] 1 each TP DAILY #1 bandage 11/02/19 Gauze Bandage [Gauze] 1 each TP DAILY #30 bandage 11/02/19 Aspirin 81 mg PO DAILY 12/11/19 Oxycodone HCl/Acetaminophen [Percocet 5-325 mg Tablet] 10 mg PO PRN PRN 12/11/19 Review of Systems - Review of Systems Constitutional: reports: No Symptoms Eyes: reports: No Symptoms HENT: reports: No Symptoms Neck: reports: No Symptoms Cardiovascular: reports: No Symptoms Respiratory: reports: No Symptoms Gastrointestinal: reports: No Symptoms Genitourinary: reports: No Symptoms Breasts: reports: No Symptoms Reported Musculoskeletal: reports: No Symptoms Integumentary: reports: No Symptoms Neurological: reports: No Symptoms Endocrine: reports: No Symptoms Hematology/Lymphatic: reports: No Symptoms Psychiatric: reports: No Symptoms Nephrology Consult - Height Height: 6 ft - Weight Weight: 304 lb - BMI Body Mass Index (BMI): 41.2 - Lab Results CBC,BMP: CBC, BMP 12/13/19 06:55 12/13/19 06:55 Anion Gap: Anion Gap Anion Gap 10 MMOL/L (8-16) 12/13/19 06:55 - Physical Examination Vital Signs: Vital Signs Temperature 98.5 F 12/13/19 06:00 Pulse Rate 68 12/13/19 06:00 Respiratory Rate 20 12/13/19 09:00 Blood Pressure 154/81 12/13/19 06:00 O2 Sat by Pulse Oximetry (%) 95 12/13/19 09:00 Constitutional: Yes: Well Nourished, No Distress, Calm Eyes: Yes: Conjunctiva Clear HENT: Yes: Atraumatic, Normocephalic Neck: Yes: Supple, Trachea Midline Cardiovascular: Yes: Regular Rate and Rhythm Respiratory: Yes: Regular, CTA Bilaterally Gastrointestinal: Yes: Normal Bowel Sounds Access for Hemodialysis: Permacath Musculoskeletal: Yes: WNL Extremities: Yes: Other Edema: No Wound/Incision: Yes: Clean/Dry Neurological: Yes: Alert, Oriented Psychiatric: Yes: Alert, Oriented Assessment/Plan IMPRESSION ESRD HTN S/P skin graft- pt on antibiotics DM H/O covid, now with antibodies PLAN continue current plan surgical follow up will write hd orders for tomorrow MV
[2019-12-13] MEDS ORDERED: SODIUM CHLORIDE 250 ML IV PRN (12:03)
[2019-12-13] MEDS: ATORVASTATIN CA 40 MG TABLET (FP) PO SCH (21:02)
[2019-12-14] MEDS: INSULIN SLIDING SCALE (NOVOLOG) 1 VIAL SQ SCH ×4 (06:02→21:47)
[2019-12-14] MEDS: LEVOTHYROXINE NA 25 MCG TABLET (FP) PO SCH (06:03)
[2019-12-14] MEDS: INSULIN (LEVEMIR) 100 UNITS/ML UNITS SQ SCH (06:07)
[2019-12-14] MEDS ORDERED: PT OWN MED DRAWER 7, Y5N ONE (09:15)
[2019-12-14] MEDS: ACETAMINOPHEN 325 MG TABLET (FP) PO PRN (09:24)
[2019-12-14] MEDS: oxyCODONE HCL 5 MG TABLET PO PRN ×2 (09:25→21:45)
[2019-12-14] MEDS: CALCIUM ACETATE 667 MG CAPSULE (FP) PO SCH ×3 (09:26→17:24)
[2019-12-14] MEDS: SEVELAMER CARBONATE 800 MG TAB (FP) PO SCH ×3 (09:26→17:24)
[2019-12-14] MEDS: amLODIPine BESYLATE 10 MG TABLET (FP) PO SCH (09:26)
[2019-12-14] MEDS: ASPIRIN 81 MG CHEWABLE TABLETS PO SCH (09:26)
[2019-12-14] MEDS: APIXABAN 2.5 MG TABLET PO SCH ×2 (09:26→21:46)
[2019-12-14 13:03] VITALS: BMI 41.3
--- NOTE | 2019-12-14 13:25 | PN ---
Progress Note (short form) - Note Progress Note: RENAL Pt seen and examined d/o pain in left thigh seen during hd Last Vital Signs Temp Pulse Resp BP Pulse Ox 97.6 F 77 16 136/81 98 12/14/19 10:00 12/14/19 13:00 12/14/19 13:00 12/14/19 13:00 12/14/19 09:00 lungs clear cvs s1s2 rr abd soft ext trace edema neuro a+ox3 CBC, BMP 12/13/19 06:55 12/13/19 06:55 Current Medications Generic Name Dose Route Start Last Admin Trade Name Freq PRN Reason Stop Dose Admin Acetaminophen 650 mg 12/12/19 17:04 Tylenol - PO Q6H PRN pain/fever Acetaminophen 325 mg 12/12/19 17:48 12/14/19 09:24 Tylenol - PO 325 mg Q4H PRN Administration PAIN SCALE 1-5 Amlodipine Besylate 10 mg 12/13/19 10:00 12/14/19 09:26 Norvasc - PO 10 mg DAILY MARY Administration Apixaban 2.5 mg 12/12/19 22:00 12/14/19 09:26 Eliquis - PO 2.5 mg BID MARY Administration Aspirin 81 mg 12/13/19 10:00 12/14/19 09:26 Asa - PO 81 mg DAILY MARY Administration Atorvastatin Calcium 40 mg 12/12/19 22:00 12/13/19 21:02 Lipitor - PO 40 mg HS MARY Administration Calcium Acetate 1,334 mg 12/12/19 17:30 12/14/19 11:54 Phoslo - PO Not Given TIDCM MARY Diltiazem HCl 240 mg 12/13/19 10:00 12/14/19 09:25 Cardizem Cd - PO 240 mg DAILY MARY Administration Sodium Chloride 250 mls @ 3,000 mls/hr 12/13/19 12:03 Normal Saline - IV 12/14/19 12:03 PRN PRN Hypotension during Dialysis Insulin Aspart 1 vial 12/12/19 22:00 12/14/19 11:09 Novolog Vial Sliding Scale - SQ Not Given ACHS MARY Protocol Insulin Detemir 80 units 12/13/19 07:00 12/14/19 06:07 Levemir Vial SQ 80 units ACBK MARY Administration Levothyroxine Sodium 25 mcg 12/13/19 07:00 12/14/19 06:03 Synthroid - PO 25 mcg DAILY@0700 MARY Administration Oxycodone HCl 5 mg 12/12/19 17:48 12/14/19 09:25 Roxicodone - PO 5 mg Q4H PRN Administration PAIN SCALE 1-5 Sevelamer Carbonate 800 mg 12/12/19 17:30 12/14/19 11:54 Renvela - PO Not Given TIDCM MARY IMPRESSION ESRD HTN S/P skin graft- pt on antibiotics DM H/O covid, now with antibodies PLAN continue current plan surgical follow up continue hd tiw MV
--- NOTE | 2019-12-14 14:33 | PATH ---
Surgical Pathology Report Patient Name: HONORIO TOVAR Med. Rec. #: [id number] /Age/Gender: 1965 (Age: 54) / M Account: [id number] Location: [facility] MED/SURG Taken: 12/12/2019 Received: 12/13/2019 Reported: 12/14/2019 Physicians: Carlos Enrique Oden M.D. Specimen(s) Received LEFT LEG DEBRIDEMENT TISSUE Clinical History Acute wound left Final Diagnosis LEFT LEG DEBRIDED TISSUE, DEBRIDEMENT: PORTIONS OF SKIN WITH EXTENSIVE ULCERATION, ACUTE AND CHRONIC INFLAMMATION, AND GRANULATION TISSUE FORMATION. Electronically Signed Anton Dinero M.D. Gross Description Received in formalin labeled "left leg debrided tissue," is a 6.0 x 4.5 x 0.3 cm aggregate of damon-hirsch, necrotic, unoriented portions of skin. Risk Lead sections are submitted in one cassette. /12/13/2019 [place]udi/12/13/2019
[2019-12-14] MEDS ORDERED: morphine SULFATE 4 MG/ML VIAL IVPUSH ONE (15:58)
[2019-12-14] MEDS ORDERED: INSULIN (NOVOLOG) ASPART 100 UNITS/ML 10ML VIAL ONE (17:22)
--- NOTE | 2019-12-14 17:34 | PN ---
Progress Note (short form) - Note Progress Note: Surgery POD #2 left LE debridement with split thickness skin graft and skin graft harvest from left thigh patient seen and examined at bedside c/o pain. Patient states he takes oxycodone 10/325 at home. He states his harvest site is the most painful for him. He is tolerating her diet and denies any CP, SOB, N/V, fevers or chills. Vital Signs Temp 98.8 F 12/14/19 15:04 Pulse 72 12/14/19 15:04 Resp 20 12/14/19 15:04 BP 117/68 12/14/19 15:04 Pulse Ox 98 12/14/19 09:00 Intake & Output 12/13/19 12/14/19 12/14/19 23:59 11:59 23:59 Intake Total 200 200 320 Balance 200 200 320 Weight 304 lb 305 lb 6 oz 305 lb Intake: Oral 200 200 320 Other: Voiding Method Urinal Urinal Bowel Movement No No Yes # Bowel Movements 1 Height 6 ft 6 ft Body Mass Index (BMI) 41.2 41.3 Weight Measurement Method Built in [facility] PE: A&Ox3, NAD Unlabored resp on RA Left LE- harvest site clean and dry with xeroform intact and surrounding tissue intact with no tracking erythema or active d/c, clean dry dressing applied, Left calf wounds x2 with xeroform and skin graft in place and khoa in situ, surrounding tissues intact with no tracking erythema, edema or active d/c, distal wound with inferior boarder of skin graft and xeroform rolled up slightly revealing beefy red based and well defined boarders-xeroform placed back down to cover the wound. wounds covered with 4x4 and Unaboot applied (care taken not to strangulate) light kurlex wrap applied and small cut placed at small toe and saravia perior portion of priscila boot. B/L LE compartments soft, supple with no significant ttp, well perfused distally with +DP pulses. CBC, BMP 12/13/19 06:55 12/13/19 06:55 Problem List - Problems (1) Leg wound, left Assessment/Plan: 54 yo male POD #3 debridement with split thickness skin graft now with Priscila boot. -WBAT on left LE -maintain left priscila boot-keep clean and dry -Elevate left LE above level of heart when in bed -Pain control -f/u with Dr Oden NEXT TuesdayDecember 18 Evaluation and plan discussed with Dr Oden Code(s): S81.802A - UNSPECIFIED OPEN WOUND, LEFT LOWER LEG, INITIAL ENCOUNTER (2) Non-healing ulcer Qualifiers: Non-pressure ulcer stage: unspecified non-pressure ulcer stage Qualified Code(s): L98.499 - Non-pressure chronic ulcer of skin of other sites with unspecified severity (3) Skin graft failure Code(s): T86.821 - SKIN GRAFT (ALLOGRAFT) (AUTOGRAFT) FAILURE
[2019-12-14] MEDS: ATORVASTATIN CA 40 MG TABLET (FP) PO SCH (21:46)
[2019-12-15] MEDS: oxyCODONE HCL 5 MG TABLET PO PRN ×3 (02:02→21:24)
[2019-12-15] MEDS: INSULIN (LEVEMIR) 100 UNITS/ML UNITS SQ SCH (06:41)
[2019-12-15] MEDS: INSULIN SLIDING SCALE (NOVOLOG) 1 VIAL SQ SCH ×4 (06:42→21:24)
[2019-12-15] MEDS: LEVOTHYROXINE NA 25 MCG TABLET (FP) PO SCH (06:47)
[2019-12-15] MEDS ORDERED: PT OWN MED DRAWER 7, Y5N ONE (09:06)
[2019-12-15] MEDS: CALCIUM ACETATE 667 MG CAPSULE (FP) PO SCH ×3 (09:33→17:15)
[2019-12-15] MEDS: SEVELAMER CARBONATE 800 MG TAB (FP) PO SCH ×3 (09:34→17:15)
[2019-12-15] MEDS: APIXABAN 2.5 MG TABLET PO SCH ×2 (09:34→21:24)
[2019-12-15] MEDS: ASPIRIN 81 MG CHEWABLE TABLETS PO SCH (09:34)
[2019-12-15] MEDS: amLODIPine BESYLATE 10 MG TABLET (FP) PO SCH (09:35)
--- NOTE | 2019-12-15 12:15 | OP ---
DATE OF OPERATION: 12/13/2019 PREOPERATIVE DIAGNOSIS: Acute open wounds left Medial ankle, Left Lateral Ankle. SURGEON: Naga Calle MD RETAIL GIFT CARD MERCHANDISING: Randy Lemon PA-C LASER BEAM TRIM OPERATOR: Oscar Hnug CRNA TYPE OF ANESTHESIA: Spinal. HISTORY: Patient had COVID infection for which he had been hospitalized in intensive care unit. At that time, he developed pressure necrosis, developed a large open wound on the left thigh, left leg, and left ankle. Patient has now been treated and wound directly ready for skin grafting. Patient was brought to the operating room. Procedure had been explained. All questions had been answered including risks of loss of skin graft, hyperpigmentation, keloid infection, repeat infection, sensory deficit. Patient was transferred onto the operating table. Spinal anesthesia was administered by Oscar Hung CRNA. The left thigh and left leg were washed and cleaned with Betadine soap and solution and draped in a standard aseptic manner. First part of procedure was taking a split-thickness skin graft from the thigh. This was then meshed to 1.5 times and kept in a separate secured area. Debridement of ulcer was then carried out sharply using a 10-scalpel blade. The edges were excised completely, followed by debridement of bed of the wound. This was found to be healthy. Similar procedure was carried out on the lateral ankle. Next, the split-thickness grafts were then applied to the bed and surgically fixated with khoa, followed by a dressing consisting of Xeroform and 4 x 4's was done on the donor area while at the recipient area VAC dressing was applied. It was at 125 mmHg and continuous. Patient was then sent to recovery room in a stable condition. NAGA CALLE M.D. [id number] MTDD
--- NOTE | 2019-12-15 15:49 | PN ---
Progress Note, Physician History of Present Illness: Pt seen and examined at bedside. He is awake and alert. He denies shortness of breath. - Current Medication List Current Medications: Active Medications Acetaminophen (Tylenol -) 650 mg PO Q6H PRN PRN Reason: pain/fever Acetaminophen (Tylenol -) 325 mg PO Q4H PRN PRN Reason: PAIN SCALE 1-5 Last Admin: 12/14/19 09:24 Dose: 325 mg Documented by: Amlodipine Besylate (Norvasc -) 10 mg PO DAILY [facility] Last Admin: 12/15/19 09:35 Dose: 10 mg Documented by: Apixaban (Eliquis -) 2.5 mg PO BID [facility] Last Admin: 12/15/19 09:34 Dose: 2.5 mg Documented by: Aspirin (Asa -) 81 mg PO DAILY [facility] Last Admin: 12/15/19 09:34 Dose: 81 mg Documented by: Atorvastatin Calcium (Lipitor -) 40 mg PO HS [facility] Last Admin: 12/14/19 21:46 Dose: 40 mg Documented by: Calcium Acetate (Phoslo -) 1,334 mg PO TIDCM [facility] Last Admin: 12/15/19 11:58 Dose: 1,334 mg Documented by: Diltiazem HCl (Cardizem Cd -) 240 mg PO DAILY [facility] Last Admin: 12/15/19 09:34 Dose: 240 mg Documented by: Insulin Aspart (Novolog Vial Sliding Scale -) 1 vial SQ [facility]; Protocol Last Admin: 12/15/19 11:57 Dose: Not Given Documented by: Insulin Detemir (Levemir Vial) 80 units SQ ACBK [facility] Last Admin: 12/15/19 06:41 Dose: 80 units Documented by: Levothyroxine Sodium (Synthroid -) 25 mcg PO DAILY@0700 [facility] Last Admin: 12/15/19 06:47 Dose: 25 mcg Documented by: Oxycodone HCl (Roxicodone -) 5 mg PO Q4H PRN PRN Reason: PAIN SCALE 1-5 Last Admin: 12/14/19 21:45 Dose: 5 mg Documented by: Oxycodone HCl (Roxicodone -) 10 mg PO Q4H PRN PRN Reason: PAIN LEVEL 6-10 Last Admin: 12/15/19 09:39 Dose: 10 mg Documented by: Sevelamer Carbonate (Renvela -) 800 mg PO TIDCM MARY Last Admin: 12/15/19 11:58 Dose: 800 mg Documented by: - Objective Vital Signs: Vital Signs Temperature 98.2 F 12/15/19 15:10 Pulse Rate 99 H 12/15/19 15:10 Respiratory Rate 18 12/15/19 15:10 Blood Pressure 128/69 12/15/19 15:10 O2 Sat by Pulse Oximetry (%) 98 12/15/19 09:00 Constitutional: Yes: Calm Eyes: Yes: Conjunctiva Clear HENT: Yes: Atraumatic Cardiovascular: Yes: S1, S2 Respiratory: Yes: CTA Bilaterally Gastrointestinal: Yes: Soft, Abdomen, Obese Genitourinary: Yes: WNL Musculoskeletal: Yes: WNL Edema: Yes Neurological: Yes: Oriented Psychiatric: Yes: Oriented Labs: CBC, BMP 12/13/19 06:55 12/13/19 06:55 Assessment/Plan Current Medications Generic Name Dose Route Start Last Admin Trade Name Freq PRN Reason Stop Dose Admin Acetaminophen 650 mg 12/12/19 17:04 Tylenol - PO Q6H PRN pain/fever Acetaminophen 325 mg 12/12/19 17:48 12/14/19 09:24 Tylenol - PO 325 mg Q4H PRN Administration PAIN SCALE 1-5 Amlodipine Besylate 10 mg 12/13/19 10:00 12/15/19 09:35 Norvasc - PO 10 mg DAILY MARY Administration Apixaban 2.5 mg 12/12/19 22:00 12/15/19 09:34 Eliquis - PO 2.5 mg BID MARY Administration Aspirin 81 mg 12/13/19 10:00 12/15/19 09:34 Asa - PO 81 mg DAILY MARY Administration Atorvastatin Calcium 40 mg 12/12/19 22:00 12/14/19 21:46 Lipitor - PO 40 mg HS MARY Administration Calcium Acetate 1,334 mg 12/12/19 17:30 12/15/19 11:58 Phoslo - PO 1,334 mg TIDCM MARY Administration Diltiazem HCl 240 mg 12/13/19 10:00 12/15/19 09:34 Cardizem Cd - PO 240 mg DAILY MARY Administration Insulin Aspart 1 vial 12/12/19 22:00 12/15/19 11:57 Novolog Vial Sliding Scale - SQ Not Given ACHS [facility] Protocol Insulin Detemir 80 units 12/13/19 07:00 12/15/19 06:41 Levemir Vial SQ 80 units ACBK MARY Administration Levothyroxine Sodium 25 mcg 12/13/19 07:00 12/15/19 06:47 Synthroid - PO 25 mcg DAILY@0700 [facility] Administration Oxycodone HCl 5 mg 12/12/19 17:48 12/14/19 21:45 Roxicodone - PO 5 mg Q4H PRN Administration PAIN SCALE 1-5 Oxycodone HCl 10 mg 12/14/19 15:58 12/15/19 09:39 Roxicodone - PO 10 mg Q4H PRN Administration PAIN LEVEL 6-10 Sevelamer Carbonate 800 mg 12/12/19 17:30 12/15/19 11:58 Renvela - PO 800 mg TIDCM MARY Administration Impression 1. ESRD 2. CHF 3. anemia 4. diabetic ulcer 5. obesity 6. DM 7. HTN Plan - pt had HD yesterday - cont wound care - renal diet - cont wound care - surgery follow up
[2019-12-15] MEDS ORDERED: INSULIN (NOVOLOG) ASPART 100 UNITS/ML 10ML VIAL ONE (21:10)
[2019-12-15] MEDS: ATORVASTATIN CA 40 MG TABLET (FP) PO SCH (21:24)
[2019-12-16] MEDS: oxyCODONE HCL 5 MG TABLET PO PRN ×4 (03:44→20:14)
[2019-12-16] MEDS: INSULIN SLIDING SCALE (NOVOLOG) 1 VIAL SQ SCH ×4 (06:04→21:11)
[2019-12-16] MEDS: INSULIN (LEVEMIR) 100 UNITS/ML UNITS SQ SCH (06:05)
[2019-12-16] MEDS: LEVOTHYROXINE NA 25 MCG TABLET (FP) PO SCH (06:07)
[2019-12-16] MEDS ORDERED: INSULIN (NOVOLOG) ASPART 100 UNITS/ML 10ML VIAL ONE ×3 (06:19→17:18)
[2019-12-16] MEDS: SEVELAMER CARBONATE 800 MG TAB (FP) PO SCH ×3 (08:25→17:07)
[2019-12-16] MEDS: CALCIUM ACETATE 667 MG CAPSULE (FP) PO SCH ×3 (08:25→17:07)
[2019-12-16] MEDS: APIXABAN 2.5 MG TABLET PO SCH ×2 (09:08→21:12)
[2019-12-16] MEDS: amLODIPine BESYLATE 10 MG TABLET (FP) PO SCH (09:08)
[2019-12-16] MEDS: ASPIRIN 81 MG CHEWABLE TABLETS PO SCH (09:08)
[2019-12-16] MEDS ORDERED: PT OWN MED DRAWER 7, Y5N ONE (09:10)
--- NOTE | 2019-12-16 18:16 | PN ---
Progress Note, Physician History of Present Illness: Pt seen and examined at bedside. He is awake and alert. - Current Medication List Current Medications: Active Medications Acetaminophen (Tylenol -) 650 mg PO Q6H PRN PRN Reason: pain/fever Acetaminophen (Tylenol -) 325 mg PO Q4H PRN PRN Reason: PAIN SCALE 1-5 Last Admin: 12/14/19 09:24 Dose: 325 mg Documented by: Amlodipine Besylate (Norvasc -) 10 mg PO DAILY [facility] Last Admin: 12/16/19 09:08 Dose: 10 mg Documented by: Apixaban (Eliquis -) 2.5 mg PO BID [facility] Last Admin: 12/16/19 09:08 Dose: 2.5 mg Documented by: Aspirin (Asa -) 81 mg PO DAILY [facility] Last Admin: 12/16/19 09:08 Dose: 81 mg Documented by: Atorvastatin Calcium (Lipitor -) 40 mg PO HS [facility] Last Admin: 12/15/19 21:24 Dose: 40 mg Documented by: Calcium Acetate (Phoslo -) 1,334 mg PO TIDCM [facility] Last Admin: 12/16/19 17:07 Dose: 1,334 mg Documented by: Diltiazem HCl (Cardizem Cd -) 240 mg PO DAILY [facility] Last Admin: 12/16/19 09:11 Dose: 240 mg Documented by: Insulin Aspart (Novolog Vial Sliding Scale -) 1 vial SQ [facility]; Protocol Last Admin: 12/16/19 16:58 Dose: Not Given Documented by: Insulin Detemir (Levemir Vial) 80 units SQ ACBK [facility] Last Admin: 12/16/19 06:05 Dose: 80 units Documented by: Levothyroxine Sodium (Synthroid -) 25 mcg PO DAILY@0700 [facility] Last Admin: 12/16/19 06:07 Dose: 25 mcg Documented by: Oxycodone HCl (Roxicodone -) 5 mg PO Q4H PRN PRN Reason: PAIN SCALE 1-5 Last Admin: 12/14/19 21:45 Dose: 5 mg Documented by: Oxycodone HCl (Roxicodone -) 10 mg PO Q4H PRN PRN Reason: PAIN LEVEL 6-10 Last Admin: 12/16/19 15:05 Dose: 10 mg Documented by: Sevelamer Carbonate (Renvela -) 800 mg PO TIDCM [facility] Last Admin: 12/16/19 17:07 Dose: 800 mg Documented by: - Objective Vital Signs: Vital Signs Temperature 97.4 F L 12/16/19 16:30 Pulse Rate 72 12/16/19 16:30 Respiratory Rate 20 12/16/19 16:30 Blood Pressure 120/85 12/16/19 16:30 O2 Sat by Pulse Oximetry (%) 97 12/16/19 09:00 Constitutional: Yes: Calm Eyes: Yes: Conjunctiva Clear HENT: Yes: Atraumatic Cardiovascular: Yes: S1, S2 Respiratory: Yes: CTA Bilaterally Gastrointestinal: Yes: Soft, Abdomen, Obese Musculoskeletal: Yes: WNL Edema: Yes Wound/Incision: Yes: Dressing Dry and Intact Neurological: Yes: Oriented Psychiatric: Yes: Oriented Labs: CBC, BMP 12/13/19 06:55 12/13/19 06:55 Assessment/Plan Current Medications Generic Name Dose Route Start Last Admin Trade Name Freq PRN Reason Stop Dose Admin Acetaminophen 650 mg 12/12/19 17:04 Tylenol - PO Q6H PRN pain/fever Acetaminophen 325 mg 12/12/19 17:48 12/14/19 09:24 Tylenol - PO 325 mg Q4H PRN Administration PAIN SCALE 1-5 Amlodipine Besylate 10 mg 12/13/19 10:00 12/16/19 09:08 Norvasc - PO 10 mg DAILY MARY Administration Apixaban 2.5 mg 12/12/19 22:00 12/16/19 09:08 Eliquis - PO 2.5 mg BID MAYR Administration Aspirin 81 mg 12/13/19 10:00 12/16/19 09:08 Asa - PO 81 mg DAILY MARY Administration Atorvastatin Calcium 40 mg 12/12/19 22:00 12/15/19 21:24 Lipitor - PO 40 mg HS MARY Administration Calcium Acetate 1,334 mg 12/12/19 17:30 12/16/19 17:07 Phoslo - PO 1,334 mg TIDCM MARY Administration Diltiazem HCl 240 mg 12/13/19 10:00 12/16/19 09:11 Cardizem Cd - PO 240 mg DAILY MARY Administration Insulin Aspart 1 vial 12/12/19 22:00 12/16/19 16:58 Novolog Vial Sliding Scale - SQ Not Given ACHS [facility] Protocol Insulin Detemir 80 units 12/13/19 07:00 12/16/19 06:05 Levemir Vial SQ 80 units ACBK MARY Administration Levothyroxine Sodium 25 mcg 12/13/19 07:00 12/16/19 06:07 Synthroid - PO 25 mcg DAILY@0700 MARY Administration Oxycodone HCl 5 mg 12/12/19 17:48 12/14/19 21:45 Roxicodone - PO 5 mg Q4H PRN Administration PAIN SCALE 1-5 Oxycodone HCl 10 mg 12/14/19 15:58 12/16/19 15:05 Roxicodone - PO 10 mg Q4H PRN Administration PAIN LEVEL 6-10 Sevelamer Carbonate 800 mg 12/12/19 17:30 12/16/19 17:07 Renvela - PO 800 mg TIDCM MARY Administration Impression 1. ESRD 2. CHF 3. anemia 4. diabetic ulcer 5. obesity 6. DM 7. HTN Plan - HD tomorrow - cont wound care - epogen for anemia - renal diet - surgery follow up
[2019-12-16] MEDS: ATORVASTATIN CA 40 MG TABLET (FP) PO SCH (21:12)
[2019-12-17] MEDS: oxyCODONE HCL 5 MG TABLET PO PRN ×2 (03:38→10:20)
[2019-12-17] MEDS: INSULIN SLIDING SCALE (NOVOLOG) 1 VIAL SQ SCH ×3 (06:30→17:00)
[2019-12-17] MEDS: INSULIN (LEVEMIR) 100 UNITS/ML UNITS SQ SCH (06:32)
[2019-12-17] MEDS: LEVOTHYROXINE NA 25 MCG TABLET (FP) PO SCH (06:32)
[2019-12-17] MEDS ORDERED: INSULIN (NOVOLOG) ASPART 100 UNITS/ML 10ML VIAL ONE (06:38)
[2019-12-17 08:29] LABS: HEMATOCRIT 34.7 % (35.4-49); HEMOGLOBIN 11.1 GM/dL (11.7-16.9); MCH 27.5 pg (25.7-33.7); MCHC 32.1 g/dl (32.0-35.9); MEAN CELL VOLUME 85.9 fl (80-96); MEAN PLT VOLUME 7.3 fl (7.5-11.1); PLATELET COUNT 314 K/MM3 (134-434); RBC 4.04 M/mm3 (4.00-5.60); RDW 19.5 % (11.9-15.9); WHITE BLOOD COUNT 9.8 K/mm3 (4.0-10.0)
--- NOTE | 2019-12-17 08:36 | DS ---
Physical Exam: SUBJECTIVE: Patient seen and examined on AM rounds. POD# 5 Left leg wound excisional debridement and split skin graft. Patient feels well and denies any CP, SOB, N/V, fever or chills. He is tolerating his diet and dialysis. Plan for dialysis today. OBJECTIVE: Vital Signs Period Temp Pulse Resp BP Sys/Swartz Pulse Ox Last 24 Hr 97.4 F-98.9 F 68-80 18-20 120-152/59-85 96-97 PHYSICAL EXAM GENERAL: The patient is awake, alert, and fully oriented, in no acute distress. HEAD: Normal with no signs of trauma. EYES: PERRL, conjunctiva clear. ENT: Ears normal, nares patent, moist mucous membranes. NECK: Trachea midline,le. LUNGS: Unlabored resp on RA, no accessory muscle use. ABDOMEN: Soft, nontender, nondistended, EXTREMITIES: left thigh harvest site with dressing intact, thigh soft and supple, no tracking erythema, edema or active d/c, Left LE Priscila boot in good position and secure, foot and toes without edema, 2+ pulses, warm, well- perfused, no edema. moving toes without restriction. NEUROLOGICAL: Cranial nerves II through XII grossly intact. Normal speech, gait not observed. PSYCH: Normal mood, normal affect. SKIN: Warm, dry, normal turgor, no rashes or lesions noted. LABS Laboratory Results - last 24 hr 12/15/20 12/15/20 12/16/19 11:35 16:56 21:10 POC Glucometer 189 118 300 12/17/19 06:29 POC Glucometer 240 CBC, BMP 12/17/19 07:45 12/17/19 07:45 HOSPITAL COURSE: Date of Admission:12/12/19 The patient was admitted to the Med-Surg Unit after an elective repair of left LE wound now, s/p split thickness graft with post op wound vac placement. The day after the surgery, the patient ambulated the hallways with assistance. Narcotic and non-narcotic pain management control was achieved with an oral and IV approach. POD #2, the wound vac was removed and an PRISCILA boot was placed on his Left LE. Patient underwent several sessions of dialysis throughout his stay and remained stable. Bea-operative IV ABX were administered. DVT prophylaxis was achieved with aspirin, eliquis, SCDs and early ambulation. The patient ambulated with Physical Therapy and no services were recommended upon discharge. The discharge instructions and an oral pain management plan were reviewed with the patient. All questions answered. Above plan discussed with Dr. Oden and agreed. Patient has an appointment with Dr Kitchen Next TuesdayDecember 23 for evaluation of dialysis access. Date of Discharge: 12/17/19 Minutes to complete discharge: 35 Discharge Summary Problems reviewed: Yes Reason For Visit: ACUTE WOUND LT Condition: Stable - Instructions Diet, Activity, Other Instructions: Discharge Instructions Dear HONORIO TOVAR, Post Operative Instructions Physical activity Resume your normal everyday activity as tolerated no heavy lifting or exercise until seen by your surgeon. You may walk unlimited amounts of and climb stairs. You may resume driving the car when you feel safe and comfortable behind the wheel and no longer taking narcotics. Wound care Keep harvest site clean and dry-top dressing can be applied loosely but do not apply lotion or ointments to wounds. Yellow xeroform dressing will fall off on its own, do not remove it. Left LE Priscila boot, keep clean and dry. Elevate above level of the heart when in bed. Diet There are no dietary restrictions. Eat healthy, high-fiber foods. Drink 6 to 8 glasses of liquid each day. This will assist in keeping your bowels are regular. Pain management You may take Tylenol or acetaminophen or Ibuprofen (for example, Motrin, Advil etc.) Any pain prescription medication ordered should be taken as prescribed for moderate to severe pain. Call Dr. Oden for any of the following: Severe pain not relieved by medication Fever of 101 or higher Excessive bleeding or drainage on dressing Inability to urinate If you experience any chest pain or shortness of breath please seek emergency treatment immediately. Call the office to confirm post op appointment with Dr Oden on TuesdayDecember 18 Vascular surgery appointment with Dr. Kitchen on TuesdayDecember 23 930am, Wound care clinic [facility] Referrals: Thomas Kitchen DO [Staff Physician] - 1 Week (for dialysis access evaluation. ) Disposition: HOME - Home Medications Comprehensive Discharge Medication List: Ambulatory Orders Acetaminophen 650 mg PO Q6H PRN 10/05/19 Apixaban [Eliquis -] 2.5 mg PO BID #28 tablet 10/12/19 Atorvastatin Ca [Lipitor] 40 mg PO DAILY #30 tablet 10/12/19 Calcium Acetate [Phoslo -] 1,334 mg PO TIDCM #60 capsule 10/12/19 Diltiazem Cd [Cardizem Cd -] 240 mg PO DAILY #30 cap.sr 10/12/19 Insulin Glargine,Hum.rec.anlog [Basaglar Kwikpen U-100] 80 unit SQ DAILY #100 insuln.pen 10/12/19 Levothyroxine [Synthroid -] 25 mcg PO DAILY@0700 #30 tablet 10/12/19 Sevelamer Carbonate [Renvela -] 800 mg PO TIDCM #60 tab 10/12/19 Amlodipine Besylate 10 mg PO DAILY 10/27/19 Cane 1 each MC DAILY #1 each 11/02/19 Gauze Bandage [Bandage Roll] 1 each TP DAILY #1 bandage 11/02/19 Gauze Bandage [Gauze] 1 each TP DAILY #30 bandage 11/02/19 Aspirin 81 mg PO DAILY 12/11/19 Oxycodone HCl/Acetaminophen [Percocet 5-325 mg Tablet] 10 mg PO PRN PRN 12/11/19 Oxycodone HCl 5 mg PO Q6H PRN #15 tablet MDD 4 12/17/19 Problem List - Problems (1) Leg wound, left Code(s): S81.802A - UNSPECIFIED OPEN WOUND, LEFT LOWER LEG, INITIAL ENCOUNTER (2) Non-healing ulcer Qualifiers: Non-pressure ulcer stage: unspecified non-pressure ulcer stage Qualified Code(s): L98.499 - Non-pressure chronic ulcer of skin of other sites with unspecified severity (3) Skin graft failure Code(s): T86.821 - SKIN GRAFT (ALLOGRAFT) (AUTOGRAFT) FAILURE This patient is new to me today: Yes Date on this admission: 12/17/19 Emergency Visit: No Critical Care patient: No - Discharge Referral Referred to [facility] Yes Physician Referral: Thomas Kitchen DO ([facility]) (follow up next TUESDAY in wound care clinic- call to confirm)
[2019-12-17 08:56] LABS: CALCIUM 8.7 mg/dL (8.5-10.1); POTASSIUM 5.1 mmol/L (3.5-5.1)
[2019-12-17 09:00] LABS: BLOOD UREA NITROGEN 109.1 mg/dL (7-18); CREATININE 8.8 mg/dL (0.55-1.3)
[2019-12-17] MEDS: CALCIUM ACETATE 667 MG CAPSULE (FP) PO SCH ×3 (09:03→16:54)
[2019-12-17] MEDS: SEVELAMER CARBONATE 800 MG TAB (FP) PO SCH ×3 (09:03→17:01)
[2019-12-17] MEDS: ASPIRIN 81 MG CHEWABLE TABLETS PO SCH (10:51)
[2019-12-17] MEDS: APIXABAN 2.5 MG TABLET PO SCH (10:51)
[2019-12-17] MEDS: amLODIPine BESYLATE 10 MG TABLET (FP) PO SCH (10:52)
--- NOTE | 2019-12-17 10:55 | PN ---
Progress Note (short form) - Note Progress Note: RENAL Pt seen and examined denies complaints Last Vital Signs Temp Pulse Resp BP Pulse Ox 98.2 F 72 18 133/69 96 12/17/19 10:00 12/17/19 10:00 12/17/19 10:00 12/17/19 10:00 12/17/19 09:00 lungs clear cvs s1s2 rr abd soft ext trace edema neuro a+ox3 CBC, BMP 12/17/19 07:45 12/17/19 07:45 Current Medications Generic Name Dose Route Start Last Admin Trade Name Freq PRN Reason Stop Dose Admin Acetaminophen 650 mg 12/12/19 17:04 Tylenol - PO Q6H PRN pain/fever Acetaminophen 325 mg 12/12/19 17:48 12/14/19 09:24 Tylenol - PO 325 mg Q4H PRN Administration PAIN SCALE 1-5 Amlodipine Besylate 10 mg 12/13/19 10:00 12/17/19 10:52 Norvasc - PO Not Given DAILY [facility] Apixaban 2.5 mg 12/12/19 22:00 12/17/19 10:51 Eliquis - PO Not Given BID [facility] Aspirin 81 mg 12/13/19 10:00 12/17/19 10:51 Asa - PO Not Given DAILY [facility] Atorvastatin Calcium 40 mg 12/12/19 22:00 12/16/19 21:12 Lipitor - PO 40 mg HS MARY Administration Calcium Acetate 1,334 mg 12/12/19 17:30 12/17/19 09:03 Phoslo - PO Not Given TIDCM MARY Diltiazem HCl 240 mg 12/13/19 10:00 12/17/19 10:51 Cardizem Cd - PO Not Given DAILY MARY Epoetin Antonio 10,000 unit 12/17/19 18:16 Procrit - IVPUSH 12/17/19 18:17 ONCE ONE Sodium Chloride 250 mls @ 3,000 mls/hr 12/16/19 18:16 Normal Saline - IV 12/17/19 18:16 PRN PRN Hypotension during Dialysis Insulin Aspart 1 vial 12/12/19 22:00 12/17/19 06:30 Novolog Vial Sliding Scale - SQ 4 units ACHS MARY Administration Protocol Insulin Detemir 80 units 12/13/19 07:00 12/17/19 06:32 Levemir Vial SQ 80 units ACBK MARY Administration Levothyroxine Sodium 25 mcg 12/13/19 07:00 12/17/19 06:32 Synthroid - PO 25 mcg DAILY@0700 MARY Administration Oxycodone HCl 5 mg 12/12/19 17:48 12/14/19 21:45 Roxicodone - PO 5 mg Q4H PRN Administration PAIN SCALE 1-5 Oxycodone HCl 10 mg 12/14/19 15:58 12/17/19 10:20 Roxicodone - PO 10 mg Q4H PRN Administration PAIN LEVEL 6-10 Sevelamer Carbonate 800 mg 12/12/19 17:30 12/17/19 09:03 Renvela - PO Not Given TIDCM MARY IMPRESSION ESRD HTN S/P skin graft- pt on antibiotics DM H/O covid, now with antibodies PLAN will dialyze today and maybe dioscharged ideally he should have his avf this admission however MV
[2019-12-17] MEDS ORDERED: SODIUM CHLORIDE 250 ML IV PRN (12:08)
[2019-12-17] MEDS ORDERED: EPOETIN ALFA 10,000 UNIT/1 ML VIAL IVPUSH ONE (13:00)
[2019-12-17 16:01] VITALS: TEMP 98.9
[2019-12-17 16:25] VITALS: BP 131/73; PULSE 70
== END 2019-12-17 20:41 | disposition home or self-care (01) | DRG 361 ==
LOC: JASU-SURG 04:33 → JASUSAT 04:33 → JERBED 17:02 → J8W 17:43
PROVIDERS: ADMIT Plastic Surgery; ATTEND Plastic Surgery
PROC: 0JBP0ZZ Excision of Left Lower Leg Subcutaneous Tissue and Fascia, Open Approach (ICD-10-PCS; principal; 2019-12-13)
PROC: 0HRJX74 Replacement of Left Upper Leg Skin with Autologous Tissue Substitute, Partial Thickness, External Approach (ICD-10-PCS; 2019-12-13)
DX: E11.622 Type 2 diabetes mellitus with other skin ulcer (principal); E11.610 Type 2 diabetes mellitus with diabetic neuropathic arthropathy; L97.929 Non-pressure chronic ulcer of unspecified part of left lower leg with unspecified severity; I13.2 Hypertensive heart and chronic kidney disease with heart failure and with stage 5 chronic kidney disease, or end stage renal disease; E11.22 Type 2 diabetes mellitus with diabetic chronic kidney disease; N18.6 End stage renal disease; L89.899 Pressure ulcer of other site, unspecified stage; L89.529 Pressure ulcer of left ankle, unspecified stage; D64.9 Anemia, unspecified; G47.33 Obstructive sleep apnea (adult) (pediatric); E66.01 Morbid (severe) obesity due to excess calories; Z68.41 Body mass index [BMI] 40.0-44.9, adult; G47.30 Sleep apnea, unspecified; I50.9 Heart failure, unspecified; Z99.2 Dependence on renal dialysis; Z86.19 Personal history of other infectious and parasitic diseases
CPT/HCPCS: 36415; 80048; 82962; 85027; 87070; 87186; 87205; 88304-TC; 94010; 94760; J0885

== ENCOUNTER 2019-12-27 10:49 | Day surgery (SDC) | payer OTHER ==
[2019-12-26 16:42] VITALS: BMI 40.6
[2019-12-27] MEDS ORDERED: POVIDONE-IODINE OINTMENT 10% - 28.4 GM TUBE ONE (11:58)
[2019-12-27] MEDS ORDERED: MIDAZOLAM HCL 2 MG/2 ML SINGLE DOSE VIAL ONE ×2 (13:00)
[2019-12-27] MEDS ORDERED: PROPOFOL 20 ML ONE (13:06)
[2019-12-27] MEDS ORDERED: ceFAZolin SODIUM 1 GM VIAL IVPB ONE (13:15)
[2019-12-27] MEDS ORDERED: LIDOCAINE HCL 1%, 10 MG/ML (20ML VIAL) NR ONE ×2 (13:23)
[2019-12-27] MEDS ORDERED: HEPARIN NA (PORCINE) 5,000 UNITS/ML 1ML VIAL ONE (13:53)
--- NOTE | 2019-12-27 14:38 | HP ---
Admitting History and Physical - Admission Chief Complaint: Pt here for right avf placement Limitations to Obtaining History: No Limitations - Past Medical History Cardiovascular: Yes: HTN, Hyperlipdemia Pulmonary: Yes: Asthma, Sleep Apnea (is suspected but has not had formal studies), Other (chronic cough (nonproductive) x1 year) Gastrointestinal: Yes: Other (obesity) Renal/: Yes: Renal Failure, Renal Inusuff, Other Heme/Onc: Yes: Anemia Infectious Disease: Yes: MRSA (right buttock abscess several years ago), Other (osteomyelitis left foot, group a strep sepsis with bacteremia and soft tissue infection) Endocrine: Yes: Diabetes Mellitus (with neuropathyu and left Charcot foot), Other (morbid obesity) Dermatology: Yes: Cellulitis (lower extremities) - Smoking History Smoking history: Never smoked Have you smoked in the past 12 months: No Aproximately how many cigarettes per day: 0 - Alcohol/Substance Use Hx Alcohol Use: Yes (rare, none for 2 months) History of Substance Use: reports: None - Social History ADL: 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 History of Recent Travel: No Home Medications - Allergies Allergies/Adverse Reactions: Allergies Allergy/AdvReac Type Severity Reaction Status Date / Time No Known Allergies Allergy Verified 12/26/19 16:42 - Home Medications Home Medications: Ambulatory Orders Apixaban [Eliquis -] 2.5 mg PO BID #28 tablet 10/12/19 Atorvastatin Ca [Lipitor] 40 mg PO DAILY #30 tablet 10/12/19 Calcium Acetate [Phoslo -] 1,334 mg PO TIDCM #60 capsule 10/12/19 Diltiazem Cd [Cardizem Cd -] 240 mg PO DAILY #30 cap.sr 10/12/19 Insulin Glargine,Hum.rec.anlog [Basaglar Kwikpen U-100] 80 unit SQ DAILY #100 insuln.pen 10/12/19 Levothyroxine [Synthroid -] 25 mcg PO DAILY@0700 #30 tablet 10/12/19 Sevelamer Carbonate [Renvela -] 800 mg PO TIDCM #60 tab 10/12/19 Aspirin 81 mg PO DAILY 12/11/19 Oxycodone HCl/Acetaminophen [Percocet 5-325 mg Tablet] 10 mg PO PRN PRN 12/11/19 Oxycodone HCl 5 mg PO Q6H PRN #15 tablet MDD 4 12/17/19 Review of Systems - Review of Systems Constitutional: reports: No Symptoms Eyes: reports: No Symptoms HENT: reports: No Symptoms Neck: reports: No Symptoms Cardiovascular: reports: No Symptoms Respiratory: reports: No Symptoms Gastrointestinal: reports: No Symptoms Genitourinary: reports: No Symptoms Breasts: reports: No Symptoms Reported Musculoskeletal: reports: No Symptoms Integumentary: reports: No Symptoms Neurological: reports: No Symptoms Endocrine: reports: No Symptoms Hematology/Lymphatic: reports: No Symptoms Psychiatric: reports: No Symptoms Physical Examination Vital Signs: Vital Signs Temperature 97.3 F L 12/27/19 11:18 Pulse Rate 89 12/27/19 11:18 Respiratory Rate 16 12/27/19 11:18 Blood Pressure 114/59 L 12/27/19 11:18 O2 Sat by Pulse Oximetry (%) 100 12/27/19 11:18 Constitutional: Yes: Well Nourished, No Distress, Calm Eyes: Yes: WNL, Conjunctiva Clear, EOM Intact HENT: Yes: WNL, Atraumatic, Normocephalic Neck: Yes: WNL, Supple, Trachea Midline Cardiovascular: Yes: WNL, Regular Rate and Rhythm Respiratory: Yes: WNL, Regular, CTA Bilaterally Gastrointestinal: Yes: WNL, Normal Bowel Sounds Musculoskeletal: Yes: WNL Extremities: Yes: WNL Edema: No Peripheral Pulses WNL: Yes Integumentary: Yes: WNL Neurological: Yes: WNL, Alert, Oriented ...Motor Strength: WNL Psychiatric: Yes: WNL Labs: CBC, BMP 12/27/19 12:20 Problem List - Problems (1) ESRD (end stage renal disease) Assessment/Plan: ESRD 1. For right avf placement today Thomas Paetl DO Problems reviewed: Yes Code(s): N18.6 - END STAGE RENAL DISEASE
--- NOTE | 2019-12-27 14:40 | OP ---
Operative Note - Note: Operative Date: 12/27/19 Pre-Operative Diagnosis: ESRD Operation: Creation of right brachial artery to cephalic vein fistula Post-Operative Diagnosis: Same as Pre-op Surgeon: hTomas Kitchen Anesthesia: Fractional Estimated Blood Loss (mls): 50 Operative Report Dictated: Yes
[2019-12-27] MEDS ORDERED: PROMETHAZINE HCL 25 MG/1 ML VIAL IVPB PRN (14:52)
[2019-12-27] MEDS ORDERED: ONDANSETRON 4 MG/2 ML VIAL IVPUSH PRN (14:52)
[2019-12-27] MEDS ORDERED: oxyCODONE HCL 5 MG TABLET PO PRN (14:52)
[2019-12-27 16:07] VITALS: BP 126/77; PULSE 76; TEMP 98.3
--- NOTE | 2019-12-28 14:42 | SURG ---
Surgery Business Change Manager Note Business Change Manager: Khoa Lopez PA-C (Suzy) Date of Service: 12/28/19 Diagnosis: ESRD Procedure: Operation: Creation of right brachial artery to cephalic vein fistula I was present for the entirety of the operative procedure. For further detail, please refer to operative report. Visit type - Case Type Case Type: Scheduled - Emergency Emergency Visit: No - New patient This patient is new to me today: Yes Date on this admission: 12/28/19 - Critical Care Critical Care patient: No
--- NOTE | 2020-01-07 11:06 | OP ---
DATE OF OPERATION: 12/27/2019 PREOPERATIVE DIAGNOSIS: End-stage renal disease. POSTOPERATIVE DIAGNOSIS: End-stage renal disease. PROCEDURE: Creation of right brachial artery cephalic vein fistula. SURGEON: Thomas Gomez DO ANESTHESIA: Fractional. BLOOD LOSS: 50 mL. Patient is a 54-year-old male that needs permanent dialysis access. Preoperative vein mapping showed that he has a good cephalic vein in his right arm. Patient came into ambulatory surgery. Patient was COVID negative. Patient was consented for the procedure, understanding all risks, benefits, and alternatives, and was then brought to the operating room. Once in the operating room, he was laid on the operating table in supine manner. The area of the right arm was prepped and draped in standard surgical manner. Using ultrasound guidance, we were able to map out our cephalic vein and our brachial artery, and we yassine out a transverse incision using a skin marker below the antecubital fossa. We then went ahead and injected 10 mL of lidocaine 1% in the area. We then made a 4-cm incision using a 15 blade. Bovie electrocautery was used to control hemostasis, and we got down through all of the subcutaneous tissue. We then dissected our cephalic vein anteriorly and posteriorly ligating all branches using 4-0 silk. We then went medially and went through the fascia and dissected out our brachial artery anteriorly and posteriorly, and vesseloops were placed proximally and distally. Heparin 5000 units intravenously were administered to the patient. We then went ahead and ligated our vein distally. We then placed a feeding tube into the vein, which went all the way up into the upper arm. There was good drawback with good bleeding, and the vein dilated up appropriately. After 3 minutes of being on IV heparin, we got distal and proximal thrill in our artery. We then went ahead and made a 7-mm venotomy on the vein using Holden scissors. We then used a number 15 blade and made an arteriotomy on our artery and extended it to 7 mm. We then used a 6-0 Prolene double-armed and placed stay sutures on the artery. We then 6-0 Prolene double-armed and went outside in on vein and inside out on the artery and ran the stitch around performing anastomosis of the artery and the vein. Once completed, we opened the distal artery first then the proximal artery. There was a good thrill in our AV fistula. There was no bleeding. Area was well irrigated. Surgicel was placed. Vicryl 3-0 was used, and subcutaneous tissue was approximated in an interrupted manner. Skin was closed with skin khoa. Patient tolerated the procedure with no complications. Patient was transferred to PACU in stable condition. THOMAS GOMEZ DO [id number]
== END 2019-12-27 16:14 | disposition home or self-care (01) ==
LOC: JASU-SURG 10:49
PROVIDERS: ATTEND Surgery Vascular Surgery
PROC: 03170ZD Bypass Right Brachial Artery to Upper Arm Vein, Open Approach (ICD-10-PCS; principal; 2019-12-27 13:00)
DX: I12.0 Hypertensive chronic kidney disease with stage 5 chronic kidney disease or end stage renal disease (principal); E11.22 Type 2 diabetes mellitus with diabetic chronic kidney disease; N18.6 End stage renal disease; Z99.2 Dependence on renal dialysis; Z79.4 Long term (current) use of insulin
CPT/HCPCS: 36415; 82962; 84132; 94760; J1644

== ENCOUNTER 2020-02-01 11:02 | Inpatient (IN) | payer OTHER ==
[2020-02-01] MEDS ORDERED: SODIUM CHLORIDE 500 ML IV SCH (11:15)
--- NOTE | 2020-02-01 11:22 | PDOC ---
History of Present Illness - General Chief Complaint: Weakness Stated Complaint: Weakness Time Seen by Provider: 02/01/20 11:20 History Source: Patient Exam Limitations: No Limitations - History of Present Illness Initial Comments: 02/01/20 11:21 54 yo M w a hx of morbid obesity, HTN, IDDM, ESRD on HD MWF, asthma, hypothyroidism, portal HTN, anemia of chronic disease, HFpEF, chronic nonhealing diabetic LLE wound (daily wound care) presenting from dialysis clinic this morning w hypotension, generalized malaise, fatigue. Seen 4d ago for similar hypotension attributed to taking too much fluid off during dialysis despite 1 blood cx growing staph epidermis. Pt denies cough, chest pain, SOB, n/v Financial Advisor - Alycia Past History - Medical History Allergies/Adverse Reactions: Allergies Allergy/AdvReac Type Severity Reaction Status Date / Time No Known Allergies Allergy Verified 12/26/19 16:42 Home Medications: Ambulatory Orders Apixaban [Eliquis -] 2.5 mg PO BID #28 tablet 10/12/19 Atorvastatin Ca [Lipitor] 40 mg PO DAILY #30 tablet 10/12/19 Diltiazem Cd [Cardizem Cd -] 240 mg PO DAILY #30 cap.sr 10/12/19 Levothyroxine [Synthroid -] 25 mcg PO DAILY@0700 #30 tablet 10/12/19 Aspirin 81 mg PO DAILY 12/11/19 Oxycodone HCl/Acetaminophen [Percocet 5-325 mg Tablet] 10 mg PO PRN PRN 12/11/19 Amlodipine Besylate [Norvasc -] 10 mg PO DAILY 01/28/20 Calcium Acetate [Phoslo -] 1,334 mg PO TIDCM 01/28/20 Furosemide [Lasix] 80 mg PO BID 01/28/20 Insulin Glargine,Hum.rec.anlog [Basaglar Kwikpen U-100] 80 units SQ DAILY 01/28/20 Insulin Lispro [Humalog Kwikpen U-100] 30 units SQ TID 01/28/20 Sevelamer Carbonate [Renvela -] 800 mg PO TID 01/28/20 Sodium Bicarbonate - 2 tab PO TID 01/28/20 Tizanidine HCl 2 mg PO TID 01/28/20 Anemia: Yes Asthma: Yes Cancer: No Cardiac Disorders: No CVA: No COPD: No CHF: Yes Dementia: No Diabetes: Yes Dialysis: Yes (mon/wed/fri) GI Disorders: No Disorders: Yes (ACUTE RENAL INSUFFICIENCY-voids very little) HTN: Yes Hypercholesterolemia: Yes Kidney Stones: Yes Liver Disease: No Seizures: No Thyroid Disease: Yes - Surgical History Abdominal Surgery: No Appendectomy: No Cardiac Surgery: No Cholecystectomy: No Lung Surgery: No Neurologic Surgery: No Orthopedic Surgery: Yes (right knee) - Immunization History Immunization Up to Date: No - Psycho-Social/Smoking History Smoking Status: No Smoking History: Never smoked Have you smoked in the past 12 months: No Number of Cigarettes Smoked Daily: 0 Cigars Per Day: 0 - Substance Abuse Hx (Audit-C & DAST Scrn) How often the patient has a drink containing alcohol: Never Score: In Men: 4 or > Positive; In Women: 3 or > Positive: 0 Screen Result (Pos requires Nsg. Audit-10AR): Negative Review of Systems - Review of Systems Constitutional: Yes: Fever. No: Chills HEENTM: No: Eye Pain, Nose Congestion Respiratory: No: Cough, Shortness of Breath Cardiac (ROS): No: Chest Pain, Palpitations ABD/GI: No: Constipated, Diarrhea, Nausea, Vomiting : No: Burning, Dysuria Musculoskeletal: No: Back Pain, Joint Pain Integumentary: No: Bruising, Flushing Neurological: No: Headache, Seizure Psychiatric: No: Anxiety, Depression Endocrine: No: Intolerance to Cold, Intolerance to Heat Hematologic/Lymphatic: No: Anemia, Blood Clots *Physical Exam - Vital Signs Last Vital Signs Temp Pulse Resp BP Pulse Ox 107 H 24 H 91/50 L 99 02/01/20 11:06 02/01/20 11:06 02/01/20 11:06 02/01/20 11:06 - Physical Exam General Appearance: Yes: Nourished, Appropriately Dressed, Mild Distress, Obese HEENT: positive: EOMI, ANITA, Normal Voice, Hearing Grossly Normal. negative: Scleral Icterus (R), Scleral Icterus (L) Respiratory/Chest: positive: Lungs Clear, Normal Breath Sounds, Rapid RR, Other (R chest port). negative: Chest Tender, Respiratory Distress, Crackles, Rales, Rhonchi, Stridor, Wheezing Cardiovascular: positive: Regular Rhythm, S1, S2, Tachycardia. negative: Murmur Gastrointestinal/Abdominal: positive: Normal Bowel Sounds, Flat, Soft. negative: Tender, Organomegaly Extremity: positive: Other (L calf wound, not tender/warm/draining) Integumentary: positive: Normal Color, Warm. negative: Dry Neurologic: positive: Fully Oriented, Alert, Normal Response, Responsive ED Treatment Course - LABORATORY CBC & Chemistry Diagram: 02/01/20 11:16 02/01/20 11:16 - ADDITIONAL ORDERS Additional order review: Laboratory Results 02/01/20 11:10 POC Glucometer 190 02/01/20 11:10 POC Glucometer 190 Medical Decision Making - Medical Decision Making 02/01/20 12:09 EKG - sinus tachycardia, incomplete RBBB, HR 106, QTc 480, no ST changes CXR - clear lungs --- 54 yo M w a hx of morbid obesity, HTN, IDDM, ESRD on HD MWF, asthma, hypothyroidism, portal HTN, anemia of chronic disease, HFpEF, chronic nonhealing diabetic LLE wound (daily wound care) presenting from dialysis clinic this morning w hypotension, generalized malaise, fatigue. Sepsis (temp 101.4, HR 107, hypotension 91/50, RR 24) without clear source of infection. Also hypoxic 89 on RA. Has R chest port which needs blood culture but none of ED nurses trained to draw from. Low concern for PNA (clear CXR) vs L wound (not draining/open/tender/warm) vs ACS (neg trop). Pt makes very little urine, cannot produce specimen. Last blood cx +staph epidermis HypoK 3.3, hypoPhos1.8, hypoMg 1.6 Given 1L fluids, tylenol, vanc, zosyn. Started 3L NC (O2 89 to 99) Repeat BP 108/[address] Tong renal - saw pt, contacted Tin who will personally evaluate pt Admit tele for sepsis, hypotension, acute respiratory failure requiring O2 - needs culture from R chest port to r/o port infection PCP Tin to hospitalist Discharge - Discharge Information Problems reviewed: Yes Clinical Impression/Diagnosis: Hypokalemia, Hypophosphatasia, Hypomagnesemia Sepsis Qualifiers: Sepsis type: sepsis due to unspecified organism Sepsis acute organ dysfunction status: without acute organ dysfunction Qualified Code(s): A41.9 - Sepsis, unspecified organism Hypotension Qualifiers: Hypotension type: unspecified hypotension type Qualified Code(s): I95.9 - Hypotension, unspecified Acute respiratory failure Qualifiers: Respiratory failure complication: hypoxia Qualified Code(s): J96.01 - Acute re spiratory failure with hypoxia Condition: Improved - Follow up/Referral Referrals: August Castle MD [Primary Care Provider] - - Patient Discharge Instructions - Post Discharge Activity Vital Signs - Vital Signs Temperature: 101.4 F Temperature source: Rectal Blood Pressure: 108/53 BP Location: Right Arm
[2020-02-01] MEDS ORDERED: PIPERACILLIN/TAZOB 4.5 GM 4.5 GM in DEXTROSE 5%-WATER 100 ML IVPB ONE (11:24)
[2020-02-01] MEDS ORDERED: VANCOMYCIN 1 GM in D5W (PRE-DOCKED) 1,000 MG/250 ML IVPB ONE (11:24)
[2020-02-01] MEDS ORDERED: ACETAMINOPHEN 1000 MG/100 ML VIAL (NON FORMULARY) IVPB ONE (11:25)
[2020-02-01] MEDS ORDERED: ACETAMINOPHEN INJECTION 100 ML IVPB ONE (11:38)
[2020-02-01] MEDS ORDERED: PIPERACILLIN/TAZOB 4.5 GM 4.5 GM/100 ML BAG IVPB ONE ×2 (11:38→17:21)
[2020-02-01] MEDS ORDERED: VANCOMYCIN 1 GRAM (PRE-DOCKED) 1,000 MG/250 ML BAG IVPB ONE (11:38)
[2020-02-01 11:49] LABS: BASO % 0.4 % (0-2.0); EOS % 2.4 % (0-4.5); HEMATOCRIT 28.7 % (35.4-49); HEMOGLOBIN 9.4 GM/dL (11.7-16.9); LYMPH % 4.8 % (8-40); MCH 29.5 pg (25.7-33.7); MCHC 32.9 g/dl (32.0-35.9); MEAN CELL VOLUME 89.7 fl (80-96); MEAN PLT VOLUME 7.7 fl (7.5-11.1); MONO % 6.3 % (3.8-10.2); NEUT % 86.1 % (42.8-82.8); PLATELET COUNT 141 K/MM3 (134-434); WHITE BLOOD COUNT 8.2 K/mm3 (4.0-10.0)
[2020-02-01 12:26] LABS: ALBUMIN 2.7 g/dl (3.4-5.0); BILIRUBIN,TOTAL 0.6 mg/dL (0.2-1); CALCIUM 8.3 mg/dL (8.5-10.1); CREATININE 3.3 mg/dL (0.55-1.3); MAGNESIUM 1.6 mg/dL (1.8-2.4); PHOSPHOROUS 1.8 mg/dL (2.5-4.9); POTASSIUM 3.3 mmol/L (3.5-5.1); TOT PROT 6.9 g/dl (6.4-8.2)
[2020-02-01 12:34] LABS: BLOOD UREA NITROGEN 17.2 mg/dL (7-18)
[2020-02-01] MEDS ORDERED: SODIUM CHLORIDE 0.9% 500 ML INFUS.BAG IV ONE (13:09)
--- NOTE | 2020-02-01 14:06 | CON.NEP ---
Consult Consult Specialty:: nephrology - History of Present Illness Chief Complaint: feeling tired History of Present Illness: This 54 year old man was in dialysis today and was hypotensive and with a low grade temperature. I asked nurse francisco javier send to [facility]. He has a history of esrd, dm, htn, obesity, chronic leg infections, s/p skin graft, obesity, covid 19 and recent avf. He was here 4 days ago and was discharged but he did not feel better and BP stayed low in dialysis unit. So he was sent in. He mainly complains of being tired. no chest pain and no difficulty breathing. Cultures from previous admission show staph coag neg - History Source Limitations to Obtaining History: No Limitations - Past Medical History Cardio/Vascular: Yes: HTN, Hyperlipdemia Pulmonary: Yes: Asthma, Sleep Apnea (is suspected but has not had formal studies), Other (chronic cough (nonproductive) x1 year) Gastrointestinal: Yes: Other (obesity) Renal/: Yes: Renal Failure, Renal Inusuff, Other Infectious Disease: Yes: MRSA (right buttock abscess several years ago), Other (osteomyelitis left foot, group a strep sepsis with bacteremia and soft tissue infection) Endocrine: Yes: Diabetes Mellitus (with neuropathyu and left Charcot foot), Other (morbid obesity) Dermatology: Yes: Cellulitis (lower extremities) - Alcohol/Substance Use Hx Alcohol Use: Yes (rare, none for 2 months) History of Substance Use: reports: None - Smoking History Smoking history: Never smoked Have you smoked in the past 12 months: No Aproximately how many cigarettes per day: 0 - Social History Usual Living Arrangement: With Child ADL: 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 History of Recent Travel: No Home Medications - Allergies Allergies/Adverse Reactions: Allergies Allergy/AdvReac Type Severity Reaction Status Date / Time No Known Allergies Allergy Verified 12/26/19 16:42 - Home Medications Home Medications: Ambulatory Orders Apixaban [Eliquis -] 2.5 mg PO BID #28 tablet 10/12/19 Atorvastatin Ca [Lipitor] 40 mg PO DAILY #30 tablet 10/12/19 Diltiazem Cd [Cardizem Cd -] 240 mg PO DAILY #30 cap.sr 10/12/19 Levothyroxine [Synthroid -] 25 mcg PO DAILY@0700 #30 tablet 10/12/19 Aspirin 81 mg PO DAILY 12/11/19 Oxycodone HCl/Acetaminophen [Percocet 5-325 mg Tablet] 10 mg PO PRN PRN 12/11/19 Amlodipine Besylate [Norvasc -] 10 mg PO DAILY 01/28/20 Calcium Acetate [Phoslo -] 1,334 mg PO TIDCM 01/28/20 Furosemide [Lasix] 80 mg PO BID 01/28/20 Insulin Glargine,Hum.rec.anlog [Basaglar Kwikpen U-100] 80 units SQ DAILY 01/28/20 Insulin Lispro [Humalog Kwikpen U-100] 30 units SQ TID 01/28/20 Sevelamer Carbonate [Renvela -] 800 mg PO TID 01/28/20 Sodium Bicarbonate - 2 tab PO TID 01/28/20 Tizanidine HCl 2 mg PO TID 01/28/20 Review of Systems - Review of Systems Constitutional: reports: Fever, Lethargy Eyes: reports: No Symptoms HENT: reports: No Symptoms Neck: reports: No Symptoms Cardiovascular: reports: No Symptoms Respiratory: reports: No Symptoms Gastrointestinal: reports: No Symptoms Genitourinary: reports: No Symptoms Breasts: reports: No Symptoms Reported Musculoskeletal: reports: No Symptoms Neurological: reports: No Symptoms Endocrine: reports: No Symptoms Hematology/Lymphatic: reports: No Symptoms Psychiatric: reports: No Symptoms Nephrology Consult - Height Height: 6 ft - Weight Weight: 300 lb - BMI Body Mass Index (BMI): 40.6 - Lab Results CBC,BMP: CBC, BMP 02/01/20 11:16 02/01/20 11:16 Anion Gap: Anion Gap Anion Gap 9 MMOL/L (8-16) 02/01/20 11:16 - Imaging Chest X-ray: Image Reviewed - Physical Examination Vital Signs: Vital Signs Temperature 101.4 F H 02/01/20 13:50 Pulse Rate 92 H 02/01/20 13:20 Respiratory Rate 23 H 02/01/20 13:20 Blood Pressure 108/53 L 02/01/20 13:50 O2 Sat by Pulse Oximetry (%) 99 02/01/20 13:20 Constitutional: Yes: No Distress, Calm Eyes: Yes: Conjunctiva Clear, EOM Intact HENT: Yes: Atraumatic, Normocephalic Neck: Yes: Supple, Trachea Midline Cardiovascular: Yes: Regular Rate and Rhythm Respiratory: Yes: CTA Bilaterally Gastrointestinal: Yes: Normal Bowel Sounds Renal/: Yes: WNL Access for Hemodialysis: Permacath Extremities: Yes: WNL, Other (has a thrill/bruit over left arm) Edema: No Peripheral Pulses WNL: Yes Wound/Incision: Yes: Clean/Dry Neurological: Yes: Alert, Oriented Psychiatric: Yes: Alert, Oriented Assessment/Plan IMPRESSION esrd dm htn but now hypotensive requirng fluid during hd possible line infection PLAN admit observe pt was given vancomycin in dialysis unit 2 days ago and today consider id eval if cultures still positive will need to remove catheter please have vascular eval to see if fistula can be used... probably not vanco/gent Joseph ENRIQUEZ/VALENTIN covering this weekend no need to hd dialysis nurse came downstairs to draw blood cultures does not need hd today.. he was dialyzed earlier MV
--- NOTE | 2020-02-01 14:22 | PDOC ---
Documentation entered by Abeba Braga SCRIBE, acting as scribe for Sandeep Escobar MD. Sandeep Escobar MD: This documentation has been prepared by the lorrieibe, Abeba Braga SCRIBE, under my direction and personally reviewed by me in its entirety. I confirm that the documentation accurately reflects all work, treatment, procedures, and medical decision making performed by me. Attending Attestation - Resident Resident Name: Sandeep Escobar - ED Attending Attestation I have performed the following: I have examined & evaluated the patient, The case was reviewed & discussed with the resident, I agree w/resident's findings & plan, Exceptions are as noted - HPI HPI: 02/01/20 11:23 Patient is a 54 year old male with a significant past medical history of hypertension, morbid obesity, diabetes, ESRD (MWF), asthma, hypothyroidism, anemia of chronic disease, HFpEF, and chronic nonhealing diabetic LLE wound (daily wound care), who presents to the ED with fatigue, hypotension, and general malaise. Patient has experienced similar symptoms in the past probably related to "taking too much fluid off dialysis". This time now with fever Has recently been started on vancomycin by cigarette stamper Patient denies: fever, nausea, vomiting, SOB, chest pain, or any other related symptoms. Allergies: NKDA 02/01/20 14:17 - Physicial Exam PE: 02/01/20 14:17 Vitals: Triage Vital signs reviewed General Appearance: No acute distress, well nourished well developed, Head: Atraumatic, Chest: Tunneled catheter right upper chest Cardiac: Regular rate and rhythym, no murmurs, no rubs, no gallops, Lungs: Clear to auscultation bilateral, good air movement bilaterally, Abdomen: Soft, non distended, normal bowel sounds, non tender to palpation Extremities: Full range of motion to all extremities, no cyanosis, clubbing, or edema Skin: Warm and dry, no rashes or lesions, no rash, no petechiae Psych: Normal mood, normal affect - Medical Decision Making 02/01/20 14:19 54 years old with recurrent hypotension after dialysis now with fever. Concern for infected cath Blood cultures drawn from cath Broad-spectrum antibiotics ordered Patient pancultured started on Vanco and Zosyn We will admit to medicine for further management. Renal Consulted Discharge - Discharge Information Problems reviewed: Yes Clinical Impression/Diagnosis: Hypokalemia, Hypophosphatasia, Hypomagnesemia Sepsis Qualifiers: Sepsis type: sepsis due to unspecified organism Sepsis acute organ dysfunction status: without acute organ dysfunction Qualified Code(s): A41.9 - Sepsis, unspecified organism Hypotension Qualifiers: Hypotension type: unspecified hypotension type Qualified Code(s): I95.9 - Hypotension, unspecified Acute respiratory failure Qualifiers: Respiratory failure complication: hypoxia Qualified Code(s): J96.01 - Acute respiratory failure with hypoxia Condition: Improved - Follow up/Referral - Patient Discharge Instructions - Post Discharge Activity
[2020-02-01] MEDS ORDERED: SODIUM CHLORIDE 500 ML IV STA ×2 (15:03→17:43)
--- NOTE | 2020-02-01 15:05 | HP ---
CHIEF COMPLAINT: hypotension PCP: Tin HISTORY OF PRESENT ILLNESS: Pt is a 54 y/o male with HTN, ESRD (HD MWF since Jul, oliguric), chronic LLE ulcers (debridement and graft Jul), IDDM, HFpEF, hypothyroidism, asthma, portal HTN, and anemia of chronic disease who presents from HD with hypotension and weakness. He reports that since last Tuesday he has become hypotensive following dialysis with eventual improvement in weakness and increase in pressure. Four days ago, when he became hypotensive, he was brought by EMS to [facility] and stayed overnight. He improved and was discharged the next day. One bottle of blood cx grew staph epidermidis. Two days ago, pt reports he thinks less fluid was removed as was today. Per notes, pt was also started on vancomycin during HD this week. He reports feeling feverish this morning and temp was noted to be above 99 before HD today. He denies chills, nausea, vom iting, diarrhea, body aches, loss of appetite, changes in PO intake. ER course was notable for: (1) IV bolus x2, vancomycin, Zosyn, Ofirmev (2) CXR no acute pathology (3) Phos 1.8, Mg 1.6 PAST MEDICAL HISTORY: HTN, ESRD (HD MWF since Jul) chronic LLE ulcers IDDM HFpEF hypothyroidism asthma portal HTN anemia of chronic disease PAST SURGICAL HISTORY: left leg debridement and skin graft left AVF Social History: Smoking: denies Alcohol: denies Drugs: denies Allergies No Known Allergies Allergy (Verified 12/26/19 16:42) HOME MEDICATIONS: Home Medications Medication Instructions Recorded Apixaban [Eliquis -] 2.5 mg PO BID #28 tablet 10/12/19 Atorvastatin Ca [Lipitor] 40 mg PO DAILY #30 tablet 10/12/19 Diltiazem Cd [Cardizem Cd -] 240 mg PO DAILY #30 cap.sr 10/12/19 Levothyroxine [Synthroid -] 25 mcg PO DAILY@0700 #30 tablet 10/12/19 Aspirin 81 mg PO DAILY 12/11/19 Oxycodone HCl/Acetaminophen 10 mg PO PRN PRN 12/11/19 [Percocet 5-325 mg Tablet] Amlodipine Besylate [Norvasc -] 10 mg PO DAILY 01/28/20 Calcium Acetate [Phoslo -] 1,334 mg PO TIDCM 01/28/20 Furosemide [Lasix] 80 mg PO BID 01/28/20 Insulin Glargine,Hum.rec.anlog 80 units SQ DAILY 01/28/20 [Basaglar Kwikpen U-100] Insulin Lispro [Humalog Kwikpen 30 units SQ TID 01/28/20 U-100] Sevelamer Carbonate [Renvela -] 800 mg PO TID 01/28/20 Sodium Bicarbonate - 2 tab PO TID 01/28/20 Tizanidine HCl 2 mg PO TID 01/28/20 REVIEW OF SYSTEMS see HPI PHYSICAL EXAMINATION Vital Signs - 24 hr 02/01/20 02/01/20 02/01/20 11:05 11:06 11:23 Temperature 101.4 F H Pulse Rate 107 H Pulse Rate [ 101 H Apical] Respiratory 24 H 30 H Rate Blood Pressure 91/50 L Blood Pressure 108/53 L [Right Arm] O2 Sat by Pulse 95 99 95 Oximetry (%) 02/01/20 02/01/20 02/01/20 13:20 13:50 14:05 Temperature 101.4 F H Pulse Rate Pulse Rate [ 92 H Apical] Respiratory 23 H 22 H Rate Blood Pressure 108/53 L Blood Pressure 99/52 L [Right Arm] O2 Sat by Pulse 99 99 Oximetry (%) 02/01/20 14:27 Temperature Pulse Rate Pulse Rate [ Apical] Respiratory Rate Blood Pressure Blood Pressure 101/56 L [Right Arm] O2 Sat by Pulse Oximetry (%) GENERAL: Awake, alert, and fully oriented, in no acute distress. HEAD: Normal with no signs of trauma. EYES: Pupils equal, round and reactive to light, extraocular movements intact. EARS, NOSE, THROAT: Ears normal, nares patent, moist mucous membranes. NECK: Normal range of motion. LUNGS: Clear to auscultation bilaterally. No wheezes, and no crackles. HEART: RRR, no murmur. ABDOMEN: Soft, nontender, obese, normoactive bowel sounds. MUSCULOSKELETAL: Normal range of motion at all joints. Right side chest permac ath with no erythema, edema, or tenderness to palpation. UPPER EXTREMITIES: Warm, well-perfused. No peripheral edema. LOWER EXTREMITIES: Warm, well-perfused. No calf tenderness. +1 pitting edema below knee, 18cm x 6 cm area of erythema and warmth (skin graft) with no opening or drainage on left calf, 4cm x 2cm ulcer with no erythema or drainage on left lateral malleolus NEUROLOGICAL: Cranial nerves II-XII grossly intact. Normal speech. PSYCHIATRIC: Cooperative. Good eye contact. Appropriate mood and affect. SKIN: Warm, dry, normal turgor. Laboratory Results - last 24 hr 02/01/20 02/01/20 02/01/20 11:10 11:16 11:16 WBC 8.2 RBC 3.20 L Hgb 9.4 L Hct 28.7 L MCV 89.7 MCH 29.5 MCHC 32.9 RDW 19.0 H Plt Count 141 D MPV 7.7 Absolute Neuts (auto) 7.1 Neutrophils % 86.1 H Lymphocytes % 4.8 L Monocytes % 6.3 Eosinophils % 2.4 Basophils % 0.4 Nucleated RBC % 0 Sodium 135 L Potassium 3.3 L Chloride 98 Carbon Dioxide 29 Anion Gap 9 BUN 17.2 Creatinine 3.3 H Est GFR (CKD-EPI)AfAm 23.58 Est GFR (CKD-EPI)NonAf 20.34 POC Glucometer 190 Random Glucose 242 H Lactic Acid Calcium 8.3 L Phosphorus 1.8 L Magnesium 1.6 L Total Bilirubin 0.6 AST 20 ALT 37 Alkaline Phosphatase 111 Creatine Kinase 54 Troponin I 0.02 B-Natriuretic Peptide Total Protein 6.9 Albumin 2.7 L 02/01/20 02/01/20 11:16 12:21 WBC RBC Hgb Hct MCV MCH MCHC RDW Plt Count MPV Absolute Neuts (auto) Neutrophils % Lymphocytes % Monocytes % Eosinophils % Basophils % Nucleated RBC % Sodium Potassium Chloride Carbon Dioxide Anion Gap BUN Creatinine Est GFR (CKD-EPI)AfAm Est GFR (CKD-EPI)NonAf POC Glucometer Random Glucose Lactic Acid 1.6 Calcium Phosphorus Magnesium Total Bilirubin AST ALT Alkaline Phosphatase Creatine Kinase Troponin I B-Natriuretic Peptide 9262.4 H Total Protein Albumin ASSESSMENT/PLAN: Pt is a 54 y/o male with HTN, ESRD (HD MWF since Jul, oliguric), chronic LLE ulcers (debridement and graft Jul), IDDM, HFpEF, hypothyroidism, asthma, portal HTN, and anemia of chronic disease who presents from HD with hypotension and weakness. He was admitted on 01/27 and discharged 01/28 for hypotension post HD. #septic shock 2/2 ?cellulitis or ?bacteremia -MAP <65 during my exam, improvement into 70s following boluses -tachypneic -tmax 101.4 -lactic acidosis -left leg is erythematous and warm -1 bottle of blood cx grew staph epidermidis 4 days ago -if permacath is source of infection, will need to pull line -was started on vancomycin during HD -pressure somewhat improved, will switch to NS 75mL/hr for 1 bag, then reassess, do not want to overload given oliguria -Vancomycin renally dosed -Zosyn renally dosed -pain control as needed -CT left lower extremity for signs of infection -ID consult -ICU consulted- does not need ICU care at this time -500cc bolus -repeat lactic acid #ESRD on HD #left arm AVF placement -Cr 3.3 post dialysis today -nephrology following -consulted vascular for input on maturity, still 2-4 more weeks till may be ready #hypokalemia -hold sevelamer -monitor labs closely to restart #hypophosphatemia -hold Phoslo -monitor labs closely to restart #hypomagnesemia -400mg PO x1 -recheck labs tomorrow #HTN -hold diltiazem -hold amlodipine #IDDM -SSI -BGMs #HFpEF -BNP 9200, better than previous admissions -hold Lasix for hypotension -low threshold to restart #hypothyroidism -continue home Synthroid #HLD -continue home statin -continue home ASA DVT Ppx continue home Eliquis 2.5mg BID FEN NS 75mL/hr x1 bag, 500cc bolus x1 now monitor K, Phos, Mg sodium-controlled/diabetic diet dispo tele keep MAP >65 FULL CODE Family Medical History Family History: Unremarkable Visit type - Emergency Visit Emergency Visit: Yes ED Registration Date: 02/01/20 Care time: The patient presented to the Emergency Department on the above date and was hospitalized for further evaluation of their emergent condition. - New Patient This patient is new to me today: Yes Date on this admission: 02/01/20 - Critical Care Critical Care patient: No ATTENDING PHYSICIAN STATEMENT I saw and evaluated the patient. I reviewed the resident's note and discussed the case with the resident. I agree with the resident's findings and plan as documented. SUBJECTIVE: OBJECTIVE: ASSESSMENT AND PLAN:
--- NOTE | 2020-02-01 15:13 | PN ---
Teaching Attending Note Name of Resident: Ani Moreno ATTENDING PHYSICIAN STATEMENT I saw and evaluated the patient. I reviewed the resident's note and discussed the case with the resident. I agree with the resident's findings and plan as documented. SUBJECTIVE: Feeling weak OBJECTIVE: Vital Signs Temperature 101.4 F H 02/01/20 13:50 Pulse Rate 92 H 02/01/20 13:20 Respiratory Rate 22 H 02/01/20 14:05 Blood Pressure 101/56 L 02/01/20 14:27 O2 Sat by Pulse Oximetry (%) 99 02/01/20 14:05 General: Middle-aged man, comfortable, not in distress HEENT mucous membranes moist, no anemia, no jaundice, PERRLA, no nystagmus Neck: No JVD, dialysis cannula, no surrounding inflammation supple, no bruit, thyroid palpably normal, normal carotid pulsations. Chest: Nontender, bilateral basal rales. CVS: S1-S2 regular no murmur/gallop/rub Abdomen: Nondistended, soft, bowel sounds present. 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 , no gross motor sensory deficit CBC,CMP WBC 8.2 K/mm3 (4.0-10.0) 02/01/20 11:16 RBC 3.20 M/mm3 (4.00-5.60) L 02/01/20 11:16 Hgb 9.4 GM/dL (11.7-16.9) L 02/01/20 11:16 Hct 28.7 % (35.4-49) L 02/01/20 11:16 MCV 89.7 fl (80-96) 02/01/20 11:16 MCH 29.5 pg (25.7-33.7) 02/01/20 11:16 MCHC 32.9 g/dl (32.0-35.9) 02/01/20 11:16 RDW 19.0 % (11.9-15.9) H 02/01/20 11:16 Plt Count 141 K/MM3 (134-434) D 02/01/20 11:16 MPV 7.7 fl (7.5-11.1) 02/01/20 11:16 Absolute Neuts (auto) 7.1 K/mm3 (1.5-8.0) 02/01/20 11:16 Neutrophils % 86.1 % (42.8-82.8) H 02/01/20 11:16 Lymphocytes % 4.8 % (8-40) L 02/01/20 11:16 Monocytes % 6.3 % (3.8-10.2) 02/01/20 11:16 Eosinophils % 2.4 % (0-4.5) 02/01/20 11:16 Basophils % 0.4 % (0-2.0) 02/01/20 11:16 Nucleated RBC % 0 % (0-0) 02/01/20 11:16 Sodium 135 mmol/L (136-145) L 02/01/20 11:16 Potassium 3.3 mmol/L (3.5-5.1) L 02/01/20 11:16 Chloride 98 mmol/L (98-107) 02/01/20 11:16 Carbon Dioxide 29 mmol/L (21-32) 02/01/20 11:16 Anion Gap 9 MMOL/L (8-16) 02/01/20 11:16 BUN 17.2 mg/dL (7-18) 02/01/20 11:16 Creatinine 3.3 mg/dL (0.55-1.3) H 02/01/20 11:16 Est GFR (CKD-EPI)AfAm 23.58 02/01/20 11:16 Est GFR (CKD-EPI)NonAf 20.34 02/01/20 11:16 POC Glucometer 190 UNITS (80-120) 02/01/20 11:10 Random Glucose 242 mg/dL (74-106) H 02/01/20 11:16 Lactic Acid 1.6 mmol/L (0.4-2.0) 02/01/20 12:21 Calcium 8.3 mg/dL (8.5-10.1) L 02/01/20 11:16 Phosphorus 1.8 mg/dL (2.5-4.9) L 02/01/20 11:16 Magnesium 1.6 mg/dL (1.8-2.4) L 02/01/20 11:16 Total Bilirubin 0.6 mg/dL (0.2-1) 02/01/20 11:16 AST 20 U/L (15-37) 02/01/20 11:16 ALT 37 U/L (13-61) 02/01/20 11:16 Alkaline Phosphatase 111 U/L (45-117) 02/01/20 11:16 Creatine Kinase 54 U/L (26-308) 02/01/20 11:16 Troponin I 0.02 ng/ml (0.00-0.05) 02/01/20 11:16 B-Natriuretic Peptide 9262.4 pg/ml (5-125) H 02/01/20 11:16 Total Protein 6.9 g/dl (6.4-8.2) 02/01/20 11:16 Albumin 2.7 g/dl (3.4-5.0) L 02/01/20 11:16 EKG: CXR: With infiltrate ASSESSMENT AND PLAN: 54-year-old man, status post COVID pneumonia in September 2019 morbidly obese BMI 40 history of hypertension, type 2 diabetes mellitus, diabetes nephropathy ESRD on hemodialysis Tuesday and Tuesday, asthma, hypothyroidism, postural hypotension, cough heart failure with preserved ejection fraction, recently discharged from [place] on hospital day 10 presented with a similar presentation of feeling weak and hypotensive during dialysis, patient was discharged home after volume resuscitation blood culture grew staph epi consider contamination, as per patient, he has been feeling weak since he was discharged home today came for dialysis , complaint of chills and fever T-max 100.9, 600 cc fluid was removed and transferred to ED for evaluation in the ED patient remained hypotensive admitted for sepsis. Impression: Hypotension due to sepsis with unknown source of infection. Problem List - Problems (1) Hypotension Assessment/Plan: Patient presented post dialysis hypotension in the setting of fever and chills possibility of sepsis, received 1 L fluid in the ED still blood pressure is around 95 / 64, will infuse 500 cc normal saline over 1 hour and evaluate blood pressure if blood pressure remains low will present to ICU for management of and distributive shock most likely due to sepsis at present no clinical sign of decompensated heart failure, will follow up with nephrology for fluid management. Problems reviewed: Yes Code(s): I95.9 - HYPOTENSION, UNSPECIFIED Qualifiers: Hypotension type: unspecified hypotension type Qualified Code(s): I95.9 - Hypotension, unspecified (2) Sepsis Assessment/Plan: Can be due to permacath or left lower external extremity discussed with nephrology dialysis nurse will collect a culture sample from dialysis cannula, peripheral venous cultures collected in the ED, vancomycin level, Zosyn, ID consult. Problems reviewed: Yes Code(s): A41.9 - SEPSIS, UNSPECIFIED ORGANISM Qualifiers: Sepsis type: sepsis due to unspecified organism Sepsis acute organ dysfunction status: without acute organ dysfunction Qualified Code(s): A41.9 - Sepsis, unspecified organism (3) Diabetes mellitus type 2, uncontrolled Assessment/Plan: Type 2 diabetes mellitus, uncontrolled, random plasma glucose 209 we will resume home dose of insulin, diabetic diet will Problems reviewed: Yes Code(s): E11.65 - TYPE 2 DIABETES MELLITUS WITH HYPERGLYCEMIA (4) HTN (hypertension) Assessment/Plan: Hold hypertensive medication as patient is hypotensive reintroduce as needed. Problems reviewed: Yes Code(s): I10 - ESSENTIAL (PRIMARY) HYPERTENSION Qualifiers: Hypertension type: essential hypertension Qualified Code(s): I10 - Essential (primary) hypertension (5) Heart failure with preserved ejection fraction Assessment/Plan: Last echo in July 2019 that shows normal ejection fraction pulmonary hypertension, at present compensated chronically elevated BNP, troponin I normal will observe closely on IV hydration. Problems reviewed: Yes Code(s): I50.30 - UNSPECIFIED DIASTOLIC (CONGESTIVE) HEART FAILURE (6) Hypokalemia Assessment/Plan: Serum potassium 3.3 mild hypokalemia postdialysis we will follow-up BMP at present does not require potassium replacement Problems reviewed: Yes Code(s): E87.6 - HYPOKALEMIA (7) Asthma Assessment/Plan: Resume home medication Problems reviewed: Yes Code(s): J45.909 - UNSPECIFIED ASTHMA, UNCOMPLICATED (8) Morbid obesity with BMI of 40.0-44.9, adult Assessment/Plan: Weight reduction as an outpatient, needs outpatient evaluation for obstructive sleep apnea. Problems reviewed: Yes Code(s): E66.01 - MORBID (SEVERE) OBESITY DUE TO EXCESS CALORIES; Z68.41 - BODY MASS INDEX (BMI) 40.0-44.9, ADULT (9) Hypothyroidism Assessment/Plan: Continue home dose of levothyroxine. Problems reviewed: Yes Code(s): E03.9 - HYPOTHYROIDISM, UNSPECIFIED
--- NOTE | 2020-02-01 15:32 | CONSULT ---
- Consultation REQUESTING PROVIDER: Vascular Surgery - Thomas Kitchen CONSULT REQUEST: We have been asked to surgically evaluate this patient's AVF PCP: Jerson Bryan MD 54 yo male s/p creation of RUE AVF 12/27/2019. Admitted w/ fever. Administered Vanco in ED. PE Chest: permacatheter RUE: Palpable thrill. Hand warm. Radial 2+ A/P -IV ABX -ID consult -Cont HD via PC as his AVF isn't mature yet. Needs another 2-4 weeks for maturity -If cultures +, will need to remove catheter -Cont care per primary team -Reconsult surgery if you need a shiley for HD if permacath needs to be removed. Above plan discussed with Dr. Kitchen and agrees. Problem List - Problems (1) Hypotension Code(s): I95.9 - HYPOTENSION, UNSPECIFIED Qualifiers: Hypotension type: unspecified hypotension type Qualified Code(s): I95.9 - Hypotension, unspecified (2) Weakness Code(s): R53.1 - WEAKNESS (3) CHF (congestive heart failure) Code(s): I50.9 - HEART FAILURE, UNSPECIFIED Qualifiers: Heart failure type: unspecified Heart failure chronicity: chronic Qualified Code(s): I50.9 - Heart failure, unspecified (4) ESRD (end stage renal disease) Code(s): N18.6 - END STAGE RENAL DISEASE (5) HTN (hypertension) Code(s): I10 - ESSENTIAL (PRIMARY) HYPERTENSION Qualifiers: Hypertension type: essential hypertension Qualified Code(s): I10 - Essential (primary) hypertension (6) Morbid obesity Code(s): E66.01 - MORBID (SEVERE) OBESITY DUE TO EXCESS CALORIES Visit type - Case Type Case Type: ED Admission - Emergency Emergency Visit: Yes ED Registration Date: 02/01/20 Care time: The patient presented to the Emergency Department on the above date and was hospitalized for further evaluation of their emergent condition. - New patient This patient is new to me today: Yes Date on this admission: 02/01/20
--- NOTE | 2020-02-01 16:26 | PN ---
Teaching Attending Note Name of Resident: Joshua Napoles ATTENDING PHYSICIAN STATEMENT I saw and evaluated the patient. I reviewed the resident's note and discussed the case with the resident. I agree with the resident's findings and plan as documented. SUBJECTIVE: Patient seen and examined in the ER. 54 M, DM, ESRD on HD on July, LLE infection, and RUE AVF 12/27/2019. Reports episodes of hypotension over the past week, reports about 5 to 7 pounds of fluid removal. Noted to be febrile. Denies CP or SOB. Noted to be hypotensive (88/48 :56). Hemodynamics improved with IVF : has received 1 liter IVF thus far. Intake & Output 01/29/20 01/30/20 01/31/20 02/01/20 23:59 23:59 23:59 23:59 Intake Total 1950 Balance 1950 Weight 300 lb Last Vital Signs Temp Pulse Resp BP Pulse Ox 101.4 F H 89 24 H 90/47 L 100 02/01/20 13:50 02/01/20 15:05 02/01/20 15:05 02/01/20 15:05 02/01/20 15:05 Active Medications Sodium Chloride (Normal Saline -) 500 mls @ 250 mls/hr IV ASDIR MARY Last Admin: 02/01/20 11:36 Dose: 250 mls/hr Documented by: Vancomycin HCl 1,500 mg/ (Dextrose) 500 mls @ 250 mls/hr IVPB ONCE ONE; Protocol Stop: 02/02/20 13:59 Piperacillin Sod/Tazobactam (Sod 4.5 gm/ Dextrose) 100 mls @ 200 mls/hr IVPB Q6H-IV MARY; Protocol Piperacillin Sod/Tazobactam (Sod 4.5 gm/ Dextrose) 100 mls @ 200 mls/hr IVPB Q6H-IV MARY; Protocol Stop: 02/02/20 15:29 General: Awake and alert, NAD on RA HEENT mucous membranes moist, no anemia, no jaundice, PERRLA, no nystagmus Neck: No JVD, dialysis cannula, no surrounding inflammation supple, no bruit, thyroid palpably normal, normal carotid pulsations. Chest: Nontender, bilateral basal rales. CVS: S1-S2 regular no murmur/gallop/rub Abdomen: Nondistended, soft, bowel sounds present. 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 , no gross motor sensory deficit Laboratory Results - last 24 hr 02/01/20 02/01/20 02/01/20 11:10 11:16 11:16 WBC 8.2 RBC 3.20 L Hgb 9.4 L Hct 28.7 L MCV 89.7 MCH 29.5 MCHC 32.9 RDW 19.0 H Plt Count 141 D MPV 7.7 Absolute Neuts (auto) 7.1 Neutrophils % 86.1 H Lymphocytes % 4.8 L Monocytes % 6.3 Eosinophils % 2.4 Basophils % 0.4 Nucleated RBC % 0 PT with INR INR Sodium 135 L Potassium 3.3 L Chloride 98 Carbon Dioxide 29 Anion Gap 9 BUN 17.2 Creatinine 3.3 H Est GFR (CKD-EPI)AfAm 23.58 Est GFR (CKD-EPI)NonAf 20.34 POC Glucometer 190 Random Glucose 242 H Lactic Acid Calcium 8.3 L Phosphorus 1.8 L Magnesium 1.6 L Total Bilirubin 0.6 AST 20 ALT 37 Alkaline Phosphatase 111 Creatine Kinase 54 Troponin I 0.02 B-Natriuretic Peptide Total Protein 6.9 Albumin 2.7 L 02/01/20 02/01/20 02/01/20 11:16 12:21 15:35 WBC RBC Hgb Hct MCV MCH MCHC RDW Plt Count MPV Absolute Neuts (auto) Neutrophils % Lymphocytes % Monocytes % Eosinophils % Basophils % Nucleated RBC % PT with INR 13.70 H INR 1.16 H Sodium Potassium Chloride Carbon Dioxide Anion Gap BUN Creatinine Est GFR (CKD-EPI)AfAm Est GFR (CKD-EPI)NonAf POC Glucometer Random Glucose Lactic Acid 1.6 Calcium Phosphorus Magnesium Total Bilirubin AST ALT Alkaline Phosphatase Creatine Kinase Troponin I B-Natriuretic Peptide 9262.4 H Total Protein Albumin A/P -IV ABX -ID consult -Cont HD via PC as his AVF isn't mature yet. Needs another 2-4 weeks for maturity -If cultures +, will need to remove catheter -Cont care per primary team -Reconsult surgery if you need a shiley for HD if permacath needs to be removed. Above plan discussed with Dr. Kitchen and agrees. Problem List - Problems (1) Hypotension Code(s): I95.9 - HYPOTENSION, UNSPECIFIED Qualifiers: Hypotension type: unspecified hypotension type Qualified Code(s): I95.9 - Hypotension, unspecified (2) Weakness Code(s): R53.1 - WEAKNESS (3) CHF (congestive heart failure) Code(s): I50.9 - HEART FAILURE, UNSPECIFIED Qualifiers: Heart failure type: unspecified Heart failure chronicity: chronic Qualified Code(s): I50.9 - Heart failure, unspecified (4) ESRD (end stage renal disease) Code(s): N18.6 - END STAGE RENAL DISEASE (5) HTN (hypertension) Code(s): I10 - ESSENTIAL (PRIMARY) HYPERTENSION Qualifiers: Hypertension type: essential hypertension Qualified Code(s): I10 - Essential (primary) hypertension (6) Morbid obesity Code(s): E66.01 - MORBID (SEVERE) OBESITY DUE TO EXCESS CALORIES IMP: R/O Sepsis PLAN: Continue IVF resuscitation ABX coverage : Noted ID evaluation called May need to image LE as source of infection not determined Follow I & O HD per Renal At this time can monitor on the floor with BP checks Q4h, please call for any change in condition or for questions Thank you. Dr Jean
[2020-02-01 16:27] LABS: INR 1.16 (0.83-1.09); PROTHROMBIN TIME (PATIENT) 13.7 SEC (9.7-13.0)
--- NOTE | 2020-02-01 16:46 | CONSULT ---
Consultation: REQUESTING PROVIDER: CONSULT REQUEST: We have been asked to medically evaluate this patient for (specify). HISTORY OF PRESENT ILLNESS: 54-year-old morbidly obese man with a past medical history of HTN, T2DB, diabetes nephropathy, ESRD on hemodialysis since 2019 (MWF), asthma, hypothyroidism, COVID, postural hypotension, HFpEF, chronic nonhealing LLE wound (daily wound care) presented from dialysis clinic with hypotension, generalized malaise and fatigue. Patient evaluated in the ED for a similar episode on 01/27, feeling weak and hypotensive during dialysis and was discharged home after volume resuscitation, attributing it to fluid loss post dialysis. He reports that his blood pressure has been low episodically after dialysis for the past 4 visits and that one of the sessions he had 7 liters removed. Today, he also reports some chills and is febrile. Patient denies lightheadedness, headache, vertigo, shortness of breath, chest pain, palpitations, dysuria, nausea, vomiting or diarrhea. ED Course: - 1.5 NS, 500 D5W PB - Was hypoxic on RA (89%), on 3L NC Satting 99% - 101.4 fever, HR 107, RR 24 and MAP 64 on presentation - 1 dose of Vancomycin 1.5 gm and Zosyn 4.5 gm, both currently active - Pancultures taken - Admitted to Tele for observation of sepsis - ICU was consulted for concerns for potential hemodynamic instability, possibly related to septic shock REVIEW OF SYSTEMS: CONSTITUTIONAL: Absent: fever, chills, diaphoresis, generalized weakness, malaise, loss of appetite, weight change HEENT: Absent: rhinorrhea, nasal congestion, throat pain, throat swelling, difficulty swallowing, mouth swelling, ear pain, eye pain, visual changes CARDIOVASCULAR: Absent: chest pain, syncope, palpitations, irregular heart rate, lightheadedness, peripheral edema RESPIRATORY: Absent: cough, shortness of breath, dyspnea with exertion, orthopnea, wheezing, stridor, hemoptysis GASTROINTESTINAL: Absent: abdominal pain, abdominal distension, nausea, vomiting, diarrhea, constipation, melena, hematochezia GENITOURINARY: Absent: dysuria, frequency, urgency, hesitancy, hematuria, flank pain, genital pain MUSCULOSKELETAL: Absent: myalgia, arthralgia, joint swelling, back pain, neck pain SKIN: Absent: rash, itching, pallor HEMATOLOGIC/IMMUNOLOGIC: Absent: easy bleeding, easy bruising, lymphadenopathy, frequent infections ENDOCRINE: Absent: unexplained weight gain, unexplained weight loss, heat intolerance, cold intolerance NEUROLOGIC: Absent: headache, focal weakness or paresthesias, dizziness, unsteady gait, seizure, mental status changes, bladder or bowel incontinence PSYCHIATRIC: Absent: anxiety, depression, suicidal or homicidal ideation, hallucinations. PHYSICAL EXAMINATION Vital Signs - 24 hr 02/01/20 02/01/20 02/01/20 11:05 11:06 11:23 Temperature 101.4 F H Pulse Rate 107 H Pulse Rate [ 101 H Apical] Respiratory 24 H 30 H Rate Blood Pressure 91/50 L Blood Pressure 108/53 L [Right Arm] O2 Sat by Pulse 95 99 95 Oximetry (%) 02/01/20 02/01/20 02/01/20 13:20 13:50 14:05 Temperature 101.4 F H Pulse Rate Pulse Rate [ 92 H Apical] Respiratory 23 H 22 H Rate Blood Pressure 108/53 L Blood Pressure 99/52 L [Right Arm] O2 Sat by Pulse 99 99 Oximetry (%) 02/01/20 02/01/20 14:27 15:05 Temperature Pulse Rate Pulse Rate [ 89 Apical] Respiratory 24 H Rate Blood Pressure Blood Pressure 101/56 L 90/47 L [Right Arm] O2 Sat by Pulse 100 Oximetry (%) GENERAL: Awake, alert, and fully oriented, in no acute distress. HEAD: Normal with no signs of trauma. EYES: Pupils equal, round and reactive to light, extraocular movements intact, sclera anicteric, conjunctiva clear. No lid lag. EARS, NOSE, THROAT: Ears normal, nares patent, oropharynx clear without exudates. Moist mucous membranes. NECK: Normal range of motion, supple without lymphadenopathy, JVD, or masses. LUNGS: Breath sounds equal, clear to auscultation bilaterally. No wheezes, and no crackles. No accessory muscle use. HEART: Regular rate and rhythm, normal S1 and S2 without murmur, rub or gallop. ABDOMEN: Soft, nontender, not distended, normoactive bowel sounds, no guarding, no rebound, no masses. No hepatomegaly or splenomegaly. MUSCULOSKELETAL: Normal range of motion at all joints. No bony deformities or tenderness. No CVA tenderness. UPPER EXTREMITIES: 2+ pulses, warm, well-perfused. No cyanosis. No clubbing. Cap refill <2 seconds. No peripheral edema. LOWER EXTREMITIES: 2+ pulses, warm, well-perfused. No calf tenderness. No peripheral edema. NEUROLOGICAL: Cranial nerves II-XII intact. Normal speech. Normal gait. PSYCHIATRIC: Cooperative. Good eye contact. Appropriate mood and affect. SKIN: Warm, dry, normal turgor, no rashes or lesions noted. Laboratory Results - last 24 hr 02/01/20 02/01/20 02/01/20 11:10 11:16 11:16 WBC 8.2 RBC 3.20 L Hgb 9.4 L Hct 28.7 L MCV 89.7 MCH 29.5 MCHC 32.9 RDW 19.0 H Plt Count 141 D MPV 7.7 Absolute Neuts (auto) 7.1 Neutrophils % 86.1 H Lymphocytes % 4.8 L Monocytes % 6.3 Eosinophils % 2.4 Basophils % 0.4 Nucleated RBC % 0 PT with INR INR Sodium 135 L Potassium 3.3 L Chloride 98 Carbon Dioxide 29 Anion Gap 9 BUN 17.2 Creatinine 3.3 H Est GFR (CKD-EPI)AfAm 23.58 Est GFR (CKD-EPI)NonAf 20.34 POC Glucometer 190 Random Glucose 242 H Lactic Acid Calcium 8.3 L Phosphorus 1.8 L Magnesium 1.6 L Total Bilirubin 0.6 AST 20 ALT 37 Alkaline Phosphatase 111 Creatine Kinase 54 Troponin I 0.02 B-Natriuretic Peptide Total Protein 6.9 Albumin 2.7 L 02/01/20 02/01/20 02/01/20 11:16 12:21 15:35 WBC RBC Hgb Hct MCV MCH MCHC RDW Plt Count MPV Absolute Neuts (auto) Neutrophils % Lymphocytes % Monocytes % Eosinophils % Basophils % Nucleated RBC % PT with INR 13.70 H INR 1.16 H Sodium Potassium Chloride Carbon Dioxide Anion Gap BUN Creatinine Est GFR (CKD-EPI)AfAm Est GFR (CKD-EPI)NonAf POC Glucometer Random Glucose Lactic Acid 1.6 Calcium Phosphorus Magnesium Total Bilirubin AST ALT Alkaline Phosphatase Creatine Kinase Troponin I B-Natriuretic Peptide 9262.4 H Total Protein Albumin Active Medications Generic Name Dose Route Start Last Admin Trade Name Freq PRN Reason Stop Dose Admin Apixaban 2.5 mg 02/01/20 22:00 Eliquis - PO BID MARY Aspirin 81 mg 02/02/20 10:00 Asa - PO DAILY MARY Atorvastatin Calcium 40 mg 02/02/20 10:00 Lipitor - PO DAILY MARY Sodium Chloride 500 mls @ 250 mls/hr 02/01/20 11:15 02/01/20 11:36 Normal Saline - IV 250 mls/hr ASDIR MARY Administration Vancomycin HCl 1,500 mg/ 500 mls @ 250 mls/hr 02/02/20 12:00 Dextrose IVPB 02/02/20 13:59 ONCE ONE Protocol Piperacillin Sod/Tazobactam 100 mls @ 200 mls/hr 02/01/20 17:00 Sod 4.5 gm/ Dextrose IVPB Q6H-IV MARY Protocol Piperacillin Sod/Tazobactam 100 mls @ 200 mls/hr 02/01/20 17:00 Sod 4.5 gm/ Dextrose IVPB 02/02/20 15:29 Q6H-IV MARY Protocol Insulin Aspart 1 vial 02/01/20 22:00 Novolog Vial Sliding Scale - SQ ACHS MARY Protocol Levothyroxine Sodium 25 mcg 02/02/20 07:00 Synthroid - PO DAILY@0700 COUNT INCLUDES THE [facility] ASSESSMENT/PLAN: 54-year-old morbidly obese man with a past medical history of HTN, T2DB, diabetes nephropathy, ESRD on hemodialysis since 2019 (MWF), asthma, hypothyroidism, COVID, postural hypotension, HFpEF, chronic nonhealing LLE wound (daily wound care) presented from dialysis clinic with hypotension and fatigue - Urinalasis and CXR unremarkable for possible source of infxn - Left foot has suspicious left great toe abnormality with past h/o diabetes/osteomyelitis and loss of sensation below the ankles. Would recommend f/u CT of left foot to r/o osteomyelitis for source. - MAP currently 83, no need for further BP support with pressors - Mentating well, status improved - Patient has responded well to fluid challenge and can be monitored/treated on the floor in a non-intensive care setting. Thank you for the consultation ATTENDING PHYSICIAN STATEMENT I saw and evaluated the patient. I reviewed the resident's note and discussed the case with the resident. I agree with the resident's findings and plan as documented. SUBJECTIVE: OBJECTIVE: ASSESSMENT AND PLAN:
[2020-02-01] MEDS ORDERED: MAGNESIUM OXIDE 400 MG TABLET (FP) PO ONE (16:52)
[2020-02-01] MEDS ORDERED: MAGNESIUM OXIDE 400 MG TABLET (FP) ONE (17:21)
[2020-02-01] MEDS ORDERED: SODIUM CHLORIDE 1,000 ML IV SCH (17:30)
[2020-02-01] MEDS: PIPERACILLIN/TAZOB 4.5 GM 4.5 GM in DEXTROSE 5%-WATER 100 ML IVPB SCH ×2 (17:40→20:25)
[2020-02-01] MEDS ORDERED: INSULIN SLIDING SCALE (NOVOLOG) 1 VIAL SQ SCH (18:30)
[2020-02-01] MEDS ORDERED: PIPERACILLIN/TAZOBACTAM 4.5 GM VIAL IVPB ONE (20:23)
[2020-02-01] MEDS ORDERED: DEXTROSE 5%-WATER 100 ML IVPB ONE (20:23)
[2020-02-01] MEDS: APIXABAN 2.5 MG TABLET PO SCH (21:32)
[2020-02-01] MEDS: ATORVASTATIN CA 40 MG TABLET (FP) PO SCH (21:32)
[2020-02-01] MEDS: INSULIN SLIDING SCALE (NOVOLOG) 1 VIAL SQ SCH (21:33)
[2020-02-02] MEDS ORDERED: PIPERACILLIN/TAZOBACTAM 4.5 GM VIAL IVPB ONE (01:54)
[2020-02-02] MEDS ORDERED: DEXTROSE 5%-WATER 100 ML IVPB ONE ×4 (01:55→20:57)
[2020-02-02] MEDS: PIPERACILLIN/TAZOB 4.5 GM 4.5 GM in DEXTROSE 5%-WATER 100 ML IVPB SCH ×2 (02:40→19:04)
[2020-02-02] MEDS: INSULIN SLIDING SCALE (NOVOLOG) 1 VIAL SQ SCH ×4 (06:02→21:47)
[2020-02-02] MEDS: LEVOTHYROXINE NA 25 MCG TABLET (FP) PO SCH (06:02)
[2020-02-02 06:43] VITALS: BMI 42.4
[2020-02-02 08:09] LABS: BASO % 0.7 % (0-2.0); EOS % 3.8 % (0-4.5); HEMATOCRIT 26.2 % (35.4-49); HEMOGLOBIN 8.8 GM/dL (11.7-16.9); LYMPH % 14.5 % (8-40); MCH 30.6 pg (25.7-33.7); MCHC 33.5 g/dl (32.0-35.9); MEAN CELL VOLUME 91.2 fl (80-96); MEAN PLT VOLUME 8.1 fl (7.5-11.1); MONO % 12.7 % (3.8-10.2); NEUT % 68.3 % (42.8-82.8); PLATELET COUNT 125 K/MM3 (134-434); RBC 2.88 M/mm3 (4.00-5.60); RDW 19.4 % (11.9-15.9); WHITE BLOOD COUNT 10.4 K/mm3 (4.0-10.0)
[2020-02-02 08:18] LABS: ALBUMIN 2.3 g/dl (3.4-5.0); BILIRUBIN,TOTAL 0.6 mg/dL (0.2-1); BLOOD UREA NITROGEN 32.2 mg/dL (7-18); CALCIUM 7.8 mg/dL (8.5-10.1); CREATININE 5.1 mg/dL (0.55-1.3); PHOSPHOROUS 3.7 mg/dL (2.5-4.9); POTASSIUM 3.9 mmol/L (3.5-5.1); TOT PROT 6.2 g/dl (6.4-8.2)
[2020-02-02] MEDS ORDERED: MEROPENEM 500 MG VIAL (RESTRICTED TO ID) IVPB ONE ×3 (09:59→20:57)
[2020-02-02] MEDS: ASPIRIN 81 MG CHEWABLE TABLETS PO SCH (10:04)
[2020-02-02] MEDS: APIXABAN 2.5 MG TABLET PO SCH ×2 (10:04→21:44)
[2020-02-02] MEDS: MEROPENEM 500 MG in DEXTROSE 5%-WATER 100 ML IVPB SCH ×2 (10:04→21:44)
[2020-02-02] MEDS ORDERED: VANCOMYCIN HCL 1,500 MG in DEXTROSE 5%-WATER - 500 ML IVPB ONE (12:00)
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
--- NOTE | 2020-02-02 13:41 | PN ---
Progress Note (short form) - Note Progress Note: Resting in NAD. No CP or SOB. No acute events overnight. Hemodynamics have been stable. Intake & Output 01/30/20 01/31/20 02/01/20 02/02/20 23:59 23:59 23:59 23:59 Intake Total 2190 625 Output Total 50 Balance 2190 575 Weight 313 lb 313 lb Last Vital Signs Temp Pulse Resp BP Pulse Ox 98.4 F 94 H 18 127/67 95 02/02/20 10:00 02/02/20 10:00 02/02/20 10:00 02/02/20 10:00 02/02/20 10:00 Active Medications Apixaban (Eliquis -) 2.5 mg PO BID [facility] Last Admin: 02/02/20 10:04 Dose: 2.5 mg Documented by: Aspirin (Asa -) 81 mg PO DAILY [facility] Last Admin: 02/02/20 10:04 Dose: 81 mg Documented by: Atorvastatin Calcium (Lipitor -) 40 mg PO HS [facility] Last Admin: 02/01/20 21:32 Dose: 40 mg Documented by: Vancomycin HCl 1,500 mg/ (Dextrose) 500 mls @ 250 mls/hr IVPB ONCE ONE; Protocol Stop: 02/02/20 13:59 Last Admin: 02/02/20 12:50 Dose: 250 mls/hr Documented by: Meropenem 500 mg/ Dextrose 100 mls @ 200 mls/hr IVPB Q12H [facility] Last Admin: 02/02/20 10:04 Dose: 200 mls/hr Documented by: Insulin Aspart (Novolog Vial Sliding Scale -) 1 vial SQ ACHS [facility]; Protocol Last Admin: 02/02/20 11:59 Dose: 8 units Documented by: Levothyroxine Sodium (Synthroid -) 25 mcg PO DAILY@0700 [facility] Last Admin: 02/02/20 06:02 Dose: 25 mcg Documented by: General: Awake and alert, NAD on RA HEENT mucous membranes moist, no anemia, no jaundice Neck: No JVD, dialysis cannula, no surrounding inflammation supple, no bruit, thyroid palpably normal, normal carotid pulsations. Chest: Nontender, bilateral basal rales. CVS: S1-S2 regular no murmur/gallop/rub Abdomen: Nondistended, soft, bowel sounds present. 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 present BALLASTER: AO X3 , no gross motor sensory deficit Laboratory Results - last 24 hr 02/01/20 02/01/20 02/01/20 12:10 15:35 15:35 WBC RBC Hgb Hct MCV MCH MCHC RDW Plt Count MPV Absolute Neuts (auto) Neutrophils % Lymphocytes % Monocytes % Eosinophils % Basophils % Nucleated RBC % PT with INR 13.70 H INR 1.16 H Sodium Potassium Chloride Carbon Dioxide Anion Gap BUN Creatinine Est GFR (CKD-EPI)AfAm Est GFR (CKD-EPI)NonAf POC Glucometer Random Glucose Lactic Acid 2.3 H* Calcium Phosphorus Magnesium Total Bilirubin AST ALT Alkaline Phosphatase Total Protein Albumin COVID-19 (AV) Not detected 02/01/20 02/01/20 02/01/20 16:52 19:45 21:31 WBC RBC Hgb Hct MCV MCH MCHC RDW Plt Count MPV Absolute Neuts (auto) Neutrophils % Lymphocytes % Monocytes % Eosinophils % Basophils % Nucleated RBC % PT with INR INR Sodium Potassium Chloride Carbon Dioxide Anion Gap BUN Creatinine Est GFR (CKD-EPI)AfAm Est GFR (CKD-EPI)NonAf POC Glucometer 309 383 Random Glucose Lactic Acid 2.9 H* Calcium Phosphorus Magnesium Total Bilirubin AST ALT Alkaline Phosphatase Total Protein Albumin COVID-19 (AV) 02/02/20 02/02/20 02/02/20 00:54 05:50 05:56 WBC 10.4 H RBC 2.88 L Hgb 8.8 L Hct 26.2 L MCV 91.2 MCH 30.6 MCHC 33.5 RDW 19.4 H Plt Count 125 L MPV 8.1 Absolute Neuts (auto) 7.1 Neutrophils % 68.3 D Lymphocytes % 14.5 D Monocytes % 12.7 H D Eosinophils % 3.8 Basophils % 0.7 Nucleated RBC % 0 PT with INR INR Sodium Potassium Chloride Carbon Dioxide Anion Gap BUN Creatinine Est GFR (CKD-EPI)AfAm Est GFR (CKD-EPI)NonAf POC Glucometer 298 Random Glucose Lactic Acid 2.6 H* Calcium Phosphorus Magnesium Total Bilirubin AST ALT Alkaline Phosphatase Total Protein Albumin COVID-19 (AV) 02/02/20 02/02/20 05:56 05:56 WBC RBC Hgb Hct MCV MCH MCHC RDW Plt Count MPV Absolute Neuts (auto) Neutrophils % Lymphocytes % Monocytes % Eosinophils % Basophils % Nucleated RBC % PT with INR INR Sodium 135 L Potassium 3.9 Chloride 99 Carbon Dioxide 24 Anion Gap 12 BUN 32.2 H Creatinine 5.1 H Est GFR (CKD-EPI)AfAm 13.93 Est GFR (CKD-EPI)NonAf 12.02 POC Glucometer Random Glucose 324 H Lactic Acid 1.3 Calcium 7.8 L Phosphorus 3.7 Magnesium 2.0 Total Bilirubin 0.6 AST 14 L ALT 27 Alkaline Phosphatase 85 Total Protein 6.2 L Albumin 2.3 L COVID-19 (AV) Problem List - Problems (1) Hypotension Code(s): I95.9 - HYPOTENSION, UNSPECIFIED Qualifiers: Hypotension type: unspecified hypotension type Qualified Code(s): I95.9 - Hypotension, unspecified (2) Weakness Code(s): R53.1 - WEAKNESS (3) CHF (congestive heart failure) Code(s): I50.9 - HEART FAILURE, UNSPECIFIED Qualifiers: Heart failure type: unspecified Heart failure chronicity: chronic Qualified Code(s): I50.9 - Heart failure, unspecified (4) ESRD (end stage renal disease) Code(s): N18.6 - END STAGE RENAL DISEASE (5) HTN (hypertension) Code(s): I10 - ESSENTIAL (PRIMARY) HYPERTENSION Qualifiers: Hypertension type: essential hypertension Qualified Code(s): I10 - Essential (primary) hypertension (6) Morbid obesity Code(s): E66.01 - MORBID (SEVERE) OBESITY DUE TO EXCESS CALORIES PLAN: IVF ABX coverage per ID Follow I & O HD per Renal Dr Jean
--- NOTE | 2020-02-02 13:57 | PN ---
Teaching Attending Note Name of Resident: Larry Larry ATTENDING PHYSICIAN STATEMENT I saw and evaluated the patient. I reviewed the resident's note and discussed the case with the resident. I agree with the resident's findings and plan as documented. SUBJECTIVE: Feels well - no further fevers. No chills. Makes small amount of urine - no dysuria/hematuria. OBJECTIVE: Tmax 101.4, Hemodynamically stable. Last Vital Signs Temp Pulse Resp BP Pulse Ox 98.4 F 94 H 18 127/67 95 02/02/20 10:02/02/20 10:02/02/20 10:02/02/20 10:02/02/20 10:00 HEENT - Atraumatic, Normocephalic. Heart - S1, S2, RRR Lungs -clear to auscultation. R Permacath. Abdomen - High BMI. Soft, non-tneder. Bowel Sounds normal. Extremities - no calf tenderness, Healed ulcers s/p skin graft LLE. LUE AV fistula -thrill+ Neuro - AAO x 3. Tone/Power normal all extremities. Laboratory Results - last 24 hr 02/01/20 02/01/20 02/01/20 12:10 15:35 15:35 WBC RBC Hgb Hct MCV MCH MCHC RDW Plt Count MPV Absolute Neuts (auto) Neutrophils % Lymphocytes % Monocytes % Eosinophils % Basophils % Nucleated RBC % PT with INR 13.70 H INR 1.16 H Sodium Potassium Chloride Carbon Dioxide Anion Gap BUN Creatinine Est GFR (CKD-EPI)AfAm Est GFR (CKD-EPI)NonAf POC Glucometer Random Glucose Lactic Acid 2.3 H* Calcium Phosphorus Magnesium Total Bilirubin AST ALT Alkaline Phosphatase Total Protein Albumin COVID-19 (AV) Not detected 02/01/20 02/01/20 02/01/20 16:52 19:45 21:31 WBC RBC Hgb Hct MCV MCH MCHC RDW Plt Count MPV Absolute Neuts (auto) Neutrophils % Lymphocytes % Monocytes % Eosinophils % Basophils % Nucleated RBC % PT with INR INR Sodium Potassium Chloride Carbon Dioxide Anion Gap BUN Creatinine Est GFR (CKD-EPI)AfAm Est GFR (CKD-EPI)NonAf POC Glucometer 309 383 Random Glucose Lactic Acid 2.9 H* Calcium Phosphorus Magnesium Total Bilirubin AST ALT Alkaline Phosphatase Total Protein Albumin COVID-19 (AV) 02/02/20 02/02/20 02/02/20 00:54 05:50 05:56 WBC 10.4 H RBC 2.88 L Hgb 8.8 L Hct 26.2 L MCV 91.2 MCH 30.6 MCHC 33.5 RDW 19.4 H Plt Count 125 L MPV 8.1 Absolute Neuts (auto) 7.1 Neutrophils % 68.3 D Lymphocytes % 14.5 D Monocytes % 12.7 H D Eosinophils % 3.8 Basophils % 0.7 Nucleated RBC % 0 PT with INR INR Sodium Potassium Chloride Carbon Dioxide Anion Gap BUN Creatinine Est GFR (CKD-EPI)AfAm Est GFR (CKD-EPI)NonAf POC Glucometer 298 Random Glucose Lactic Acid 2.6 H* Calcium Phosphorus Magnesium Total Bilirubin AST ALT Alkaline Phosphatase Total Protein Albumin COVID-19 (AV) 02/02/20 02/02/20 05:56 05:56 WBC RBC Hgb Hct MCV MCH MCHC RDW Plt Count MPV Absolute Neuts (auto) Neutrophils % Lymphocytes % Monocytes % Eosinophils % Basophils % Nucleated RBC % PT with INR INR Sodium 135 L Potassium 3.9 Chloride 99 Carbon Dioxide 24 Anion Gap 12 BUN 32.2 H Creatinine 5.1 H Est GFR (CKD-EPI)AfAm 13.93 Est GFR (CKD-EPI)NonAf 12.02 POC Glucometer Random Glucose 324 H Lactic Acid 1.3 Calcium 7.8 L Phosphorus 3.7 Magnesium 2.0 Total Bilirubin 0.6 AST 14 L ALT 27 Alkaline Phosphatase 85 Total Protein 6.2 L Albumin 2.3 L COVID-19 (AV) Current Medications Generic Name Dose Route Start Last Admin Trade Name Freq PRN Reason Stop Dose Admin Apixaban 2.5 mg 02/01/20 22:00 02/02/20 10:04 Eliquis - PO 2.5 mg BID MARY Administration Aspirin 81 mg 02/02/20 10:00 02/02/20 10:04 Asa - PO 81 mg DAILY MARY Administration Atorvastatin Calcium 40 mg 02/01/20 22:00 02/01/20 21:32 Lipitor - PO 40 mg HS MARY Administration Vancomycin HCl 1,500 mg/ 500 mls @ 250 mls/hr 02/02/20 12:00 02/02/20 12:50 Dextrose IVPB 02/02/20 13:59 250 mls/hr ONCE ONE Administration Protocol Meropenem 500 mg/ Dextrose 100 mls @ 200 mls/hr 02/02/20 09:00 02/02/20 10:04 IVPB 200 mls/hr Q12H [facility] Administration Insulin Aspart 1 vial 02/01/20 22:00 02/02/20 11:59 Novolog Vial Sliding Scale - SQ 8 units ACHS MARY Administration Protocol Levothyroxine Sodium 25 mcg 02/02/20 07:00 02/02/20 06:02 Synthroid - PO 25 mcg DAILY@0700 [facility] Administration Home Medications Medication Instructions Recorded Apixaban [Eliquis -] 2.5 mg PO BID #28 tablet 10/12/19 Atorvastatin Ca [Lipitor] 40 mg PO DAILY #30 tablet 10/12/19 Diltiazem Cd [Cardizem Cd -] 240 mg PO DAILY #30 cap.sr 10/12/19 Levothyroxine [Synthroid -] 25 mcg PO DAILY@0700 #30 tablet 10/12/19 Aspirin 81 mg PO DAILY 12/11/19 Oxycodone HCl/Acetaminophen 10 mg PO PRN PRN 12/11/19 [Percocet 5-325 mg Tablet] Amlodipine Besylate [Norvasc -] 10 mg PO DAILY 01/28/20 Calcium Acetate [Phoslo -] 1,334 mg PO TIDCM 01/28/20 Furosemide [Lasix] 80 mg PO BID 01/28/20 Insulin Glargine,Hum.rec.anlog 80 units SQ DAILY 01/28/20 [Basaglar Kwikpen U-100] Insulin Lispro [Humalog Kwikpen 30 units SQ TID 01/28/20 U-100] Sevelamer Carbonate [Renvela -] 800 mg PO TID 01/28/20 Sodium Bicarbonate - 2 tab PO TID 01/28/20 Tizanidine HCl 2 mg PO TID 01/28/20 ASSESSMENT/PLAN: 54 year old male with history of HTN, ESRD on HD (MWF) via R permacath, s/p AV fistula 01/06 (not yet matured), History of Chronic LLE ulcers (s/p debridement and graft 08/09), DM 2, Chronic Diastolic CHF, Hypothyroidism, Asthma, Portal HTN, and Anemia of chronic disease, presents from HD with hypotension and weakness, found to febrile/septic sec to Bacteremia. 1. Sepsis secondary to Bacteremia, source possibly R Permacath BP responded to IV hydration Fever resolved. Peripheral Blood Cx and Culture from catheter positive for LFNB, awaiting final ID and Sensitivity. Continue Meropenem/Vanco pending ID eval. Will likely need removal of permacath - to discuss with Vascular Surgery. Echo ordered. Urine Cx requested. 2. ESRD on HD ([facility]) Nephrology eval for HD - likely Tuesday L AV fistula not yet mature. Will need PC removal and placement of temporary Shiley for HD, will discuss with Nephrology Lasix held due to hypotension and need for fluid resuscitation for sepsis. 3. Chronic Anemia - secondary to ESRD/chronic disease, Epo at discretion of Nephrology. 4. HTN - Amlodipine, Diltiazem held due to borderline BP in setting of Sepsis. 5. DM 2 - On Glargine 80 units at home - will Maintain on Levemir 40 units daily and Novolog sliding scale with slow up-titration of Levemir. 6. Hypothyroidism - Continue Levothyroxine. 7. HLD - Continue Statin 8. On Elquis chronically - reason unclear, further chart review required. DVT Px - on Eliquis.
[2020-02-02] MEDS ORDERED: INSULIN (LEVEMIR) 100 UNITS/ML UNITS SQ ONE (14:05)
--- NOTE | 2020-02-02 14:14 | PN ---
Teaching Attending Note Name of Resident: Clifford Amor ATTENDING PHYSICIAN STATEMENT I saw and evaluated the patient. I reviewed the resident's note and discussed the case with the resident. I agree with the resident's findings and plan as documented. SUBJECTIVE: OBJECTIVE: GENERAL: Awake, alert, and fully oriented, in no acute distress. HEAD: Normal with no signs of trauma. EYES: Pupils equal, round and reactive to light, extraocular movements intact. EARS, NOSE, THROAT: Ears normal, nares patent, moist mucous membranes. NECK: Normal range of motion. LUNGS: Clear to auscultation bilaterally. No wheezes, and no crackles. HEART: RRR, no murmur. ABDOMEN: Soft, nontender, obese, normoactive bowel sounds. MUSCULOSKELETAL: Normal range of motion at all joints. Right side chest permacath with no erythema, edema, or tenderness to palpation. UPPER EXTREMITIES: Warm, well-perfused. No peripheral edema. LOWER EXTREMITIES: Warm, well-perfused. No calf tenderness. +1 pitting edema below knee, 18cm x 6 cm area of erythema and warmth (skin graft) with no opening or drainage on left calf, 4cm x 2cm ulcer with no erythema or drainage on left lateral malleolus NEUROLOGICAL: Cranial nerves II-XII grossly intact. Normal speech. PSYCHIATRIC: Cooperative. Good eye contact. Appropriate mood and affect. SKIN: Warm, dry, normal turgor. VSS Labs reviewed. Imaging reviewed. Home Medications Medication Instructions Recorded Apixaban [Eliquis -] 2.5 mg PO BID #28 tablet 10/12/19 Atorvastatin Ca [Lipitor] 40 mg PO DAILY #30 tablet 10/12/19 Diltiazem Cd [Cardizem Cd -] 240 mg PO DAILY #30 cap.sr 10/12/19 Levothyroxine [Synthroid -] 25 mcg PO DAILY@0700 #30 tablet 10/12/19 Aspirin 81 mg PO DAILY 12/11/19 Oxycodone HCl/Acetaminophen 10 mg PO PRN PRN 12/11/19 [Percocet 5-325 mg Tablet] Amlodipine Besylate [Norvasc -] 10 mg PO DAILY 01/28/20 Calcium Acetate [Phoslo -] 1,334 mg PO TIDCM 01/28/20 Furosemide [Lasix] 80 mg PO BID 01/28/20 Insulin Glargine,Hum.rec.anlog 80 units SQ DAILY 01/28/20 [Basaglar Kwikpen U-100] Insulin Lispro [Humalog Kwikpen 30 units SQ TID 01/28/20 U-100] Sevelamer Carbonate [Renvela -] 800 mg PO TID 01/28/20 Sodium Bicarbonate - 2 tab PO TID 01/28/20 Tizanidine HCl 2 mg PO TID 01/28/20 ASSESSMENT AND PLAN: 54 M ESRD on HD Excessive fluid removed from HD session HTN HLD T2DM Hypothyroidism pAfib on AC Plan: Cont. AC, CCB Responsive to volume resuscitation, no clinical signs of sepsis cont. Ph binders HD schedule per Renal service DC home with Renal follow up after HD
--- NOTE | 2020-02-02 17:00 | PN ---
Progress Note, Physician History of Present Illness: Pt seen and examined at bedside. He is awake and alert. He denies shortness of breath. - Current Medication List Current Medications: Active Medications Apixaban (Eliquis -) 2.5 mg PO BID [facility] Last Admin: 02/02/20 10:04 Dose: 2.5 mg Documented by: Aspirin (Asa -) 81 mg PO DAILY [facility] Last Admin: 02/02/20 10:04 Dose: 81 mg Documented by: Atorvastatin Calcium (Lipitor -) 40 mg PO HS [facility] Last Admin: 02/01/20 21:32 Dose: 40 mg Documented by: Meropenem 500 mg/ Dextrose 100 mls @ 200 mls/hr IVPB Q12H [facility] Last Admin: 02/02/20 10:04 Dose: 200 mls/hr Documented by: Insulin Aspart (Novolog Vial Sliding Scale -) 1 vial SQ ACHS [facility]; Protocol Last Admin: 02/02/20 11:59 Dose: 8 units Documented by: Insulin Detemir (Levemir Vial) 40 units SQ 0700 [facility] Levothyroxine Sodium (Synthroid -) 25 mcg PO DAILY@0700 [facility] Last Admin: 02/02/20 06:02 Dose: 25 mcg Documented by: - Objective Vital Signs: Vital Signs Temperature 98.9 F 02/02/20 14:00 Pulse Rate 91 H 02/02/20 14:00 Respiratory Rate 18 02/02/20 14:00 Blood Pressure 149/67 02/02/20 14:00 O2 Sat by Pulse Oximetry (%) 95 02/02/20 10:00 Constitutional: Yes: Calm Eyes: Yes: Conjunctiva Clear HENT: Yes: Atraumatic Neck: Yes: Supple Cardiovascular: Yes: S1, S2 Respiratory: Yes: CTA Bilaterally Gastrointestinal: Yes: Soft Genitourinary: Yes: WNL Edema: Yes Edema: LLE: 1+, RLE: 1+ Integumentary: Yes: WNL Neurological: Yes: Oriented Psychiatric: Yes: Oriented Labs: CBC, BMP 02/02/20 05:56 02/02/20 05:56 INR, PTT INR 1.16 (0.83-1.09) H 02/01/20 15:35 Assessment/Plan Current Medications Generic Name Dose Route Start Last Admin Trade Name Freq PRN Reason Stop Dose Admin Apixaban 2.5 mg 02/01/20 22:00 08/15/20 10:04 Eliquis - PO 2.5 mg BID MARY Administration Aspirin 81 mg 02/02/20 10:00 02/02/20 10:04 Asa - PO 81 mg DAILY MARY Administration Atorvastatin Calcium 40 mg 02/01/20 22:00 02/01/20 21:32 Lipitor - PO 40 mg HS MARY Administration Meropenem 500 mg/ Dextrose 100 mls @ 200 mls/hr 02/02/20 09:00 02/02/20 10:04 IVPB 200 mls/hr Q12H MARY Administration Insulin Aspart 1 vial 02/01/20 22:00 02/02/20 11:59 Novolog Vial Sliding Scale - SQ 8 units ACHS [facility] Administration Protocol Insulin Detemir 40 units 02/03/20 07:00 Levemir Vial SQ 0700 [facility] Levothyroxine Sodium 25 mcg 02/02/20 07:00 02/02/20 06:02 Synthroid - PO 25 mcg DAILY@0700 [facility] Administration Microbiology 02/01/20 14:00 Blood - Anitra Cath Blood Culture - Preliminary Pending Organism 02/01/20 14:00 Blood - Anitra Cath Blood Culture - Preliminary Pending Organism 02/01/20 11:48 Blood - Peripheral Venous Blood Culture - Preliminary Pending Organism 02/01/20 11:48 Blood - Peripheral Venous Blood Culture - Preliminary Pending Organism Impression 1. ESRD 2. CHF 3. anemia 4. diabetic ulcer 5. fever 6. DM 7. HTN 8. obesity 9. bacteremia - gram neg bacilli Plan - pt with 4 positive blood cultures for gram neg bacilli - 01/27 culture was staph epi - ID eval is pending - cont abx - called vascular to d/c permacath - fistula with thrill and bruit - cont to follow cultures
--- NOTE | 2020-02-02 19:08 | PN ---
Progress Note (short form) - Note Progress Note: ID CONSULT DICTATED GRAM NEGATIVE BACTEREMIA ? CATHETER RELATED SEPSIS ESRD AWAIT C/S EMPRICIC MEROPENEM CATHETER REMOVAL
[2020-02-02] MEDS: ATORVASTATIN CA 40 MG TABLET (FP) PO SCH (21:44)
[2020-02-03] MEDS: INSULIN SLIDING SCALE (NOVOLOG) 1 VIAL SQ SCH ×4 (06:24→22:09)
[2020-02-03] MEDS: INSULIN (LEVEMIR) 100 UNITS/ML UNITS SQ SCH (07:29)
[2020-02-03] MEDS: LEVOTHYROXINE NA 25 MCG TABLET (FP) PO SCH (07:29)
[2020-02-03 08:01] LABS: BASO % 0.6 % (0-2.0); EOS % 5.4 % (0-4.5); HEMATOCRIT 26.4 % (35.4-49); HEMOGLOBIN 8.9 GM/dL (11.7-16.9); LYMPH % 19.6 % (8-40); MCH 30.4 pg (25.7-33.7); MCHC 33.6 g/dl (32.0-35.9); MEAN CELL VOLUME 90.6 fl (80-96); MEAN PLT VOLUME 7.9 fl (7.5-11.1); MONO % 10.6 % (3.8-10.2); NEUT % 63.8 % (42.8-82.8); PLATELET COUNT 148 K/MM3 (134-434); RBC 2.92 M/mm3 (4.00-5.60); RDW 19.1 % (11.9-15.9); WHITE BLOOD COUNT 8.4 K/mm3 (4.0-10.0)
[2020-02-03 08:33] LABS: ALBUMIN 2.3 g/dl (3.4-5.0); BLOOD UREA NITROGEN 44.8 mg/dL (7-18); CALCIUM 7.9 mg/dL (8.5-10.1); CREATININE 6.5 mg/dL (0.55-1.3); MAGNESIUM 2.1 mg/dL (1.8-2.4); PHOSPHOROUS 5.5 mg/dL (2.5-4.9); POTASSIUM 4.1 mmol/L (3.5-5.1); TOT PROT 6.2 g/dl (6.4-8.2)
[2020-02-03 08:37] LABS: BILIRUBIN,TOTAL 0.8 mg/dL (0.2-1)
[2020-02-03] MEDS ORDERED: MEROPENEM 500 MG VIAL (RESTRICTED TO ID) IVPB ONE ×2 (10:13→21:18)
[2020-02-03] MEDS ORDERED: DEXTROSE 5%-WATER 100 ML IVPB ONE ×2 (10:13→21:18)
[2020-02-03] MEDS: MEROPENEM 500 MG in DEXTROSE 5%-WATER 100 ML IVPB SCH ×2 (10:17→22:08)
[2020-02-03] MEDS: ASPIRIN 81 MG CHEWABLE TABLETS PO SCH (10:18)
[2020-02-03] MEDS: APIXABAN 2.5 MG TABLET PO SCH ×2 (10:35→22:08)
[2020-02-03] MEDS ORDERED: LIDOCAINE HCL 1%, 10 MG/ML (50 mL VIAL) SQ ONE (11:42)
[2020-02-03] MEDS ORDERED: LIDOCAINE HCL 1%, 10 MG/ML (20ML VIAL) ONE (11:53)
[2020-02-03] MEDS ORDERED: FUROSEMIDE 40 MG TABLET (FP) PO ONE (12:15)
--- NOTE | 2020-02-03 12:15 | PROC ---
Procedure Note Procedure: VASCULAR SURGERY / PERMACATHETER REMOVAL - + blood cultures x4 - INR 1.16 Right chest wall prepped and draped in sterile fashion SQ tissue infiltrated with Lido 1% (total of 10cc) Tissue around cuff/catheter dissected Removed catheter with distal tip intact Patient tolerated procedure well. Patient will need BUN/Cr monitored daily and Renal will decide as to when patient will need HD. Most likely will need shiley prn with removal after HD sessions so he can remain catheter free. Will plan for new permacatheter once his blood cultures x2 are negative.
--- NOTE | 2020-02-03 12:15 | PN ---
Progress Note, Physician History of Present Illness: Pt seen and examined at bedside. He is awake and alert. he denies fevers or chills. - Current Medication List Current Medications: Active Medications Apixaban (Eliquis -) 2.5 mg PO BID [facility] Last Admin: 02/03/20 10:35 Dose: Not Given Documented by: Aspirin (Asa -) 81 mg PO DAILY [facility] Last Admin: 02/03/20 10:18 Dose: 81 mg Documented by: Atorvastatin Calcium (Lipitor -) 40 mg PO HS [facility] Last Admin: 02/02/20 21:44 Dose: 40 mg Documented by: Meropenem 500 mg/ Dextrose 100 mls @ 200 mls/hr IVPB Q12H [facility] Last Admin: 02/03/20 10:17 Dose: 200 mls/hr Documented by: Insulin Aspart (Novolog Vial Sliding Scale -) 1 vial SQ ACHS [facility]; Protocol Last Admin: 02/03/20 12:09 Dose: 6 units Documented by: Insulin Detemir (Levemir Vial) 40 units SQ 0700 [facility] Last Admin: 02/03/20 07:29 Dose: 40 units Documented by: Levothyroxine Sodium (Synthroid -) 25 mcg PO DAILY@0700 [facility] Last Admin: 02/03/20 07:29 Dose: 25 mcg Documented by: - Objective Vital Signs: Vital Signs Temperature 98.4 F 02/03/20 09:45 Pulse Rate 92 H 02/03/20 09:45 Respiratory Rate 18 02/03/20 09:45 Blood Pressure 134/74 02/03/20 09:45 O2 Sat by Pulse Oximetry (%) 99 02/03/20 09:45 Constitutional: Yes: Calm Eyes: Yes: Conjunctiva Clear HENT: Yes: Atraumatic Neck: Yes: Supple Cardiovascular: Yes: S1, S2 Respiratory: Yes: CTA Bilaterally Gastrointestinal: Yes: Normal Bowel Sounds, Soft Genitourinary: Yes: WNL Edema: Yes Edema: LLE: Trace, RLE: Trace Neurological: Yes: Oriented Psychiatric: Yes: Oriented Labs: CBC, BMP 02/03/20 06:54 02/03/20 06:54 INR, PTT INR 1.16 (0.83-1.09) H 02/01/20 15:35 Assessment/Plan Current Medications Generic Name Dose Route Start Last Admin Trade Name Freq PRN Reason Stop Dose Admin Apixaban 2.5 mg 02/01/20 22:00 02/03/20 10:35 Eliquis - PO Not Given BID MARY Aspirin 81 mg 02/02/20 10:00 02/03/20 10:18 Asa - PO 81 mg DAILY MARY Administration Atorvastatin Calcium 40 mg 02/01/20 22:00 02/02/20 21:44 Lipitor - PO 40 mg HS MARY Administration Meropenem 500 mg/ Dextrose 100 mls @ 200 mls/hr 02/02/20 09:00 02/03/20 10:17 IVPB 200 mls/hr Q12H MARY Administration Insulin Aspart 1 vial 02/01/20 22:00 02/03/20 12:09 Novolog Vial Sliding Scale - SQ 6 units ACHS MARY Administration Protocol Insulin Detemir 40 units 02/03/20 07:00 02/03/20 07:29 Levemir Vial SQ 40 units 0700 MARY Administration Levothyroxine Sodium 25 mcg 02/02/20 07:00 02/03/20 07:29 Synthroid - PO 25 mcg DAILY@0700 MARY Administration Impression 1. ESRD 2. CHF 3. anemia 4. diabetic ulcer 5. fever 6. DM 7. HTN 8. obesity 9. bacteremia - gram neg bacilli Plan - spoke to vascular again today, they will remove permacath - vascular to evaluate fistula - will give a dose of lasix today - repeat labs in am - will hold off HD and keep catheter free - repeat blood cultures - cont abx - ID follow up, discussed with them last night - fistula with thrill and bruit - follow cultures
--- NOTE | 2020-02-03 13:15 | PN ---
Progress Note (short form) - Note Progress Note: Resting in NAD. No CP or SOB. No acute events overnight. Hemodynamics have been stable. Intake & Output 01/31/20 02/01/20 02/02/20 02/03/20 23:59 23:59 23:59 23:59 Intake Total 2190 2715 320 Output Total 50 200 Balance 2190 2665 120 Weight 313 lb 313 lb 312 lb 9.6 oz Last Vital Signs Temp Pulse Resp BP Pulse Ox 98.4 F 92 H 18 134/74 99 02/03/20 09:45 02/03/20 09:45 02/03/20 09:45 02/03/20 09:45 02/03/20 09:45 Active Medications Apixaban (Eliquis -) 2.5 mg PO BID [facility] Last Admin: 02/03/20 10:35 Dose: Not Given Documented by: Aspirin (Asa -) 81 mg PO DAILY [facility] Last Admin: 02/03/20 10:18 Dose: 81 mg Documented by: Atorvastatin Calcium (Lipitor -) 40 mg PO HS [facility] Last Admin: 02/02/20 21:44 Dose: 40 mg Documented by: Meropenem 500 mg/ Dextrose 100 mls @ 200 mls/hr IVPB Q12H [facility] Last Admin: 02/03/20 10:17 Dose: 200 mls/hr Documented by: Insulin Aspart (Novolog Vial Sliding Scale -) 1 vial SQ ACHS [facility]; Protocol Last Admin: 02/03/20 12:09 Dose: 6 units Documented by: Insulin Detemir (Levemir Vial) 40 units SQ 0700 [facility] Last Admin: 02/03/20 07:29 Dose: 40 units Documented by: Levothyroxine Sodium (Synthroid -) 25 mcg PO DAILY@0700 [facility] Last Admin: 02/03/20 07:29 Dose: 25 mcg Documented by: General: Awake and alert, NAD on RA HEENT mucous membranes moist, no anemia, no jaundice Neck: No JVD, dialysis cannula, no surrounding inflammation supple, no bruit, thyroid palpably normal, normal carotid pulsations. Chest: Nontender, bilateral basal rales. CVS: S1-S2 regular no murmur/gallop/rub Abdomen: Nondistended, soft, bowel sounds present. 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 present [employer]: AO X3 , no gross motor sensory deficit Laboratory Results - last 24 hr 02/02/20 02/02/20 02/03/20 14:29 21:44 06:23 WBC RBC Hgb Hct MCV MCH MCHC RDW Plt Count MPV Absolute Neuts (auto) Neutrophils % Lymphocytes % Monocytes % Eosinophils % Basophils % Nucleated RBC % Sodium Potassium Chloride Carbon Dioxide Anion Gap BUN Creatinine Est GFR (CKD-EPI)AfAm Est GFR (CKD-EPI)NonAf POC Glucometer 309 244 128 Random Glucose Calcium Phosphorus Magnesium Total Bilirubin AST ALT Alkaline Phosphatase Total Protein Albumin 02/03/20 02/03/20 06:54 06:54 WBC 8.4 RBC 2.92 L Hgb 8.9 L Hct 26.4 L MCV 90.6 MCH 30.4 MCHC 33.6 RDW 19.1 H Plt Count 148 MPV 7.9 Absolute Neuts (auto) 5.3 Neutrophils % 63.8 Lymphocytes % 19.6 D Monocytes % 10.6 H Eosinophils % 5.4 H Basophils % 0.6 Nucleated RBC % 0 Sodium 136 Potassium 4.1 Chloride 102 Carbon Dioxide 23 Anion Gap 11 BUN 44.8 H Creatinine 6.5 H Est GFR (CKD-EPI)AfAm 10.39 Est GFR (CKD-EPI)NonAf 8.96 POC Glucometer Random Glucose 145 H Calcium 7.9 L Phosphorus 5.5 H Magnesium 2.1 Total Bilirubin 0.8 AST 11 L ALT 24 Alkaline Phosphatase 81 Total Protein 6.2 L Albumin 2.3 L Problem List - Problems (1) Hypotension Code(s): I95.9 - HYPOTENSION, UNSPECIFIED Qualifiers: Hypotension type: unspecified hypotension type Qualified Code(s): I95.9 - Hypotension, unspecified (2) Weakness Code(s): R53.1 - WEAKNESS (3) CHF (congestive heart failure) Code(s): I50.9 - HEART FAILURE, UNSPECIFIED Qualifiers: Heart failure type: unspecified Heart failure chronicity: chronic Qualified Code(s): I50.9 - Heart failure, unspecified (4) ESRD (end stage renal disease) Code(s): N18.6 - END STAGE RENAL DISEASE (5) HTN (hypertension) Code(s): I10 - ESSENTIAL (PRIMARY) HYPERTENSION Qualifiers: Hypertension type: essential hypertension Qualified Code(s): I10 - Essential (primary) hypertension (6) Morbid obesity Code(s): E66.01 - MORBID (SEVERE) OBESITY DUE TO EXCESS CALORIES PLAN: Permacath to be removed IVF ABX coverage per ID Follow I & O Lasix per Renal Dr Jean
--- NOTE | 2020-02-03 13:34 | PN ---
Progress Note (short form) - Note Progress Note: SUBJECTIVE: Feels well - no further fevers. No chills/nausea/vomiting/diarrhea. Makes small amount of urine - no dysuria/hematuria. OBJECTIVE: Fever resolved, Hemodynamically stable. Last Vital Signs Temp Pulse Resp BP Pulse Ox 98.4 F 92 H 18 134/74 99 02/03/20 09:45 02/03/20 09:45 02/03/20 09:45 02/03/20 09:45 02/03/20 09:45 Heart - S1, S2, RRR Lungs -clear to auscultation. R Permacath. Abdomen - High BMI. Soft, non-tneder. Bowel Sounds normal. Extremities - no calf tenderness, LE edema, Healed ulcers s/p skin graft LLE. LUE AV fistula, thrill+ Neuro - AAO x 3. Tone/Power normal all extremities. Laboratory Results - last 24 hr 02/02/20 02/02/20 02/03/20 14:29 21:44 06:23 WBC RBC Hgb Hct MCV MCH MCHC RDW Plt Count MPV Absolute Neuts (auto) Neutrophils % Lymphocytes % Monocytes % Eosinophils % Basophils % Nucleated RBC % Sodium Potassium Chloride Carbon Dioxide Anion Gap BUN Creatinine Est GFR (CKD-EPI)AfAm Est GFR (CKD-EPI)NonAf POC Glucometer 309 244 128 Random Glucose Calcium Phosphorus Magnesium Total Bilirubin AST ALT Alkaline Phosphatase Total Protein Albumin 02/03/20 02/03/20 06:54 06:54 WBC 8.4 RBC 2.92 L Hgb 8.9 L Hct 26.4 L MCV 90.6 MCH 30.4 MCHC 33.6 RDW 19.1 H Plt Count 148 MPV 7.9 Absolute Neuts (auto) 5.3 Neutrophils % 63.8 Lymphocytes % 19.6 D Monocytes % 10.6 H Eosinophils % 5.4 H Basophils % 0.6 Nucleated RBC % 0 Sodium 136 Potassium 4.1 Chloride 102 Carbon Dioxide 23 Anion Gap 11 BUN 44.8 H Creatinine 6.5 H Est GFR (CKD-EPI)AfAm 10.39 Est GFR (CKD-EPI)NonAf 8.96 POC Glucometer Random Glucose 145 H Calcium 7.9 L Phosphorus 5.5 H Magnesium 2.1 Total Bilirubin 0.8 AST 11 L ALT 24 Alkaline Phosphatase 81 Total Protein 6.2 L Albumin 2.3 L Current Medications Generic Name Dose Route Start Last Admin Trade Name Freq PRN Reason Stop Dose Admin Apixaban 2.5 mg 02/01/20 22:00 02/03/20 10:35 Eliquis - PO Not Given BID MARY Aspirin 81 mg 02/02/20 10:00 02/03/20 10:18 Asa - PO 81 mg DAILY MARY Administration Atorvastatin Calcium 40 mg 02/01/20 22:00 02/02/20 21:44 Lipitor - PO 40 mg HS MARY Administration Meropenem 500 mg/ Dextrose 100 mls @ 200 mls/hr 02/02/20 09:00 02/03/20 10:17 IVPB 200 mls/hr Q12H MARY Administration Insulin Aspart 1 vial 02/01/20 22:00 02/03/20 12:09 Novolog Vial Sliding Scale - SQ 6 units ACHS [facility] Administration Protocol Insulin Detemir 40 units 02/03/20 07:00 02/03/20 07:29 Levemir Vial SQ 40 units 0700 [facility] Administration Levothyroxine Sodium 25 mcg 02/02/20 07:00 02/03/20 07:29 Synthroid - PO 25 mcg DAILY@0700 MARY Administration Home Medications Medication Instructions Recorded RX: Apixaban [Eliquis -] 2.5 mg PO BID #28 tablet 10/12/19 RX: Atorvastatin Ca [Lipitor] 40 mg PO DAILY #30 tablet 10/12/19 RX: Diltiazem Cd [Cardizem Cd -] 240 mg PO DAILY #30 cap.sr 10/12/19 RX: Levothyroxine [Synthroid -] 25 mcg PO DAILY@0700 #30 tablet 10/12/19 RX: Aspirin 81 mg PO DAILY 12/11/19 RX: Oxycodone HCl/Acetaminophen 10 mg PO PRN PRN 12/11/19 [Percocet 5-325 mg Tablet] RX: Amlodipine Besylate [Norvasc -] 10 mg PO DAILY 01/28/20 RX: Calcium Acetate [Phoslo -] 1,334 mg PO TIDCM 01/28/20 RX: Furosemide [Lasix] 80 mg PO BID 01/28/20 RX: Insulin Glargine,Hum.rec.anlog 80 units SQ DAILY 01/28/20 [Basaglar Kwikpen U-100] RX: Insulin Lispro [Humalog 30 units SQ TID 01/28/20 Kwikpen U-100] RX: Sevelamer Carbonate [Renvela -] 800 mg PO TID 01/28/20 RX: Sodium Bicarbonate - 2 tab PO TID 01/28/20 RX: Tizanidine HCl 2 mg PO TID 01/28/20 ASSESSMENT/PLAN: 54 year old male with history of HTN, ESRD on HD (MWF) via R permacath, s/p AV fistula 01/06 (not yet matured), History of Chronic LLE ulcers (s/p debridement and graft 08/09), DM 2, Chronic Diastolic CHF, Hypothyroidism, Asthma, Portal HTN, and Anemia of chronic disease, presents from HD with hypotension and weakness, found to febrile/septic sec to Bacteremia. 1. Sepsis secondary to Bacteremia, source possibly R Permacath BP responded to IV hydration Fever resolved. Peripheral Blood Cx and Culture from catheter positive for Pseudomonas On Meropenem, ID following. For removal of permacath today by Vascular Sx. Echo ordered to exclude vegetations. Urine Cx pending. Repeat Blood Cx sent. 2. ESRD on HD (MWF) May need temporary Shiley for HD - further recommendations as per Nephrology. L AV fistula not yet mature. Normally on Lasix at home, initially held due to hypotension/sepsis. For Lasix today as per Nephrology. 3. Chronic Anemia - secondary to ESRD/chronic disease, Epo at discretion of Nephrology. 4. HTN - Amlodipine, Diltiazem held due to borderline BP in setting of Sepsis. 5. DM 2 - On Glargine 80 units at home - will Maintain on Levemir 40 units daily and Novolog sliding scale with slow up-titration of Levemir. 6. Hypothyroidism - Continue Levothyroxine. 7. HLD - Continue Statin 8. On Eliquis chronically - etiology unclear, suspected continuation after starting for recent COVID infection 10/07 - further investigation required. DVT Px - on Eliquis. Visit type - Emergency Visit Emergency Visit: Yes ED Registration Date: 02/01/20 Care time: The patient presented to the Emergency Department on the above date and was hospitalized for further evaluation of their emergent condition. - New Patient This patient is new to me today: No - Critical Care Critical Care patient: No - Discharge Referral Referred to [facility] Med P.C.: No
--- NOTE | 2020-02-03 18:45 | EKG ---
Test Reason : Blood Pressure : / mmHG Vent. Rate : 106 BPM Atrial Rate : 106 BPM P-R Int : 182 ms QRS Dur : 106 ms QT Int : 362 ms P-R-T Axes : 014 -03 086 degrees QTc Int : 480 ms SINUS TACHYCARDIA INCOMPLETE RIGHT BUNDLE BRANCH BLOCK NONSPECIFIC ST ABNORMALITY ABNORMAL ECG Confirmed by MD NADIRA, JUAN ([id number]) on 02/03/2020 6:45:04 PM Referred By: Confirmed By:JUAN WADDELL MD
[2020-02-03] MEDS: ATORVASTATIN CA 40 MG TABLET (FP) PO SCH (22:08)
[2020-02-04] MEDS: INSULIN (LEVEMIR) 100 UNITS/ML UNITS SQ SCH (06:02)
[2020-02-04] MEDS: INSULIN SLIDING SCALE (NOVOLOG) 1 VIAL SQ SCH ×4 (06:02→21:46)
[2020-02-04] MEDS: LEVOTHYROXINE NA 25 MCG TABLET (FP) PO SCH (06:02)
[2020-02-04] MEDS ORDERED: MEROPENEM 500 MG VIAL (RESTRICTED TO ID) IVPB ONE ×2 (10:07→21:32)
[2020-02-04] MEDS ORDERED: DEXTROSE 5%-WATER 100 ML IVPB ONE ×2 (10:08→21:32)
[2020-02-04] MEDS: APIXABAN 2.5 MG TABLET PO SCH (10:25)
[2020-02-04] MEDS: ASPIRIN 81 MG CHEWABLE TABLETS PO SCH (10:25)
[2020-02-04] MEDS: MEROPENEM 500 MG in DEXTROSE 5%-WATER 100 ML IVPB SCH ×2 (10:25→21:45)
[2020-02-04] MEDS ORDERED: INSULIN SLIDING SCALE (NOVOLOG) 1 VIAL SQ ONE (11:30)
--- NOTE | 2020-02-04 11:52 | PN ---
Progress Note (short form) - Note Progress Note: RENAL Pt has pseudomonas growing in blood cultures from yesterday are negative so far Last Vital Signs Temp Pulse Resp BP Pulse Ox 98.8 F 92 H 16 139/63 99 02/04/20 10:32 02/04/20 10:32 02/04/20 10:32 02/04/20 10:32 02/04/20 10:32 lungs clear cvs s1s2 rr abd soft ext no edema neuro a+ox3 CBC, BMP 02/03/20 06:54 02/03/20 06:54 Current Medications Generic Name Dose Route Start Last Admin Trade Name Freq PRN Reason Stop Dose Admin Apixaban 2.5 mg 02/01/20 22:00 02/04/20 10:25 Eliquis - PO 2.5 mg BID MARY Administration Aspirin 81 mg 02/02/20 10:00 02/04/20 10:25 Asa - PO 81 mg DAILY MARY Administration Atorvastatin Calcium 40 mg 02/01/20 22:00 02/03/20 22:08 Lipitor - PO 40 mg HS MARY Administration Meropenem 500 mg/ Dextrose 100 mls @ 200 mls/hr 02/02/20 09:00 02/04/20 10:25 IVPB 200 mls/hr Q12H MARY Administration Insulin Aspart 1 vial 02/01/20 22:00 02/04/20 11:31 Novolog Vial Sliding Scale - SQ 6 units ACHS MARY Administration Protocol Insulin Detemir 40 units 02/03/20 07:00 02/04/20 06:02 Levemir Vial SQ 40 units 0700 MARY Administration Levothyroxine Sodium 25 mcg 02/02/20 07:00 02/04/20 06:02 Synthroid - PO 25 mcg DAILY@0700 MARY Administration IMPRESSION possible line sepsis dm htn plan if cultures ramain neg would insert catheter tomorrow will hold hd today no emergent need for hd today MV
--- NOTE | 2020-02-04 12:02 | PN ---
Progress Note (short form) - Note Progress Note: VASCULAR SURGERY Day 1 s/p bedside removal of permacath (2/2 + blood cultures) Patient will need BUN/Cr monitored daily. Renal following and will decide as to when patient will need HD. Most likely will need HD 02/05/20. Surgery PAs will place shiley prn with removal after HD sessions so he can remain catheter free. Will plan for new permacatheter once his blood cultures x2 are negative. Problem List - Problems (1) Hypotension Code(s): I95.9 - HYPOTENSION, UNSPECIFIED Qualifiers: Hypotension type: unspecified hypotension type Qualified Code(s): I95.9 - Hypotension, unspecified (2) Weakness Code(s): R53.1 - WEAKNESS (3) CHF (congestive heart failure) Code(s): I50.9 - HEART FAILURE, UNSPECIFIED Qualifiers: Heart failure type: unspecified Heart failure chronicity: chronic Qualified Code(s): I50.9 - Heart failure, unspecified (4) ESRD (end stage renal disease) Code(s): N18.6 - END STAGE RENAL DISEASE (5) HTN (hypertension) Code(s): I10 - ESSENTIAL (PRIMARY) HYPERTENSION Qualifiers: Hypertension type: essential hypertension Qualified Code(s): I10 - Essential (primary) hypertension (6) Morbid obesity Code(s): E66.01 - MORBID (SEVERE) OBESITY DUE TO EXCESS CALORIES
[2020-02-04 12:13] LABS: BASO % 0.8 % (0-2.0); EOS % 3.6 % (0-4.5); HEMATOCRIT 28.6 % (35.4-49); HEMOGLOBIN 9.4 GM/dL (11.7-16.9); LYMPH % 20.1 % (8-40); MCH 30.4 pg (25.7-33.7); MEAN CELL VOLUME 92.1 fl (80-96); MEAN PLT VOLUME 7.8 fl (7.5-11.1); MONO % 9.9 % (3.8-10.2); NEUT % 65.6 % (42.8-82.8); PLATELET COUNT 176 K/MM3 (134-434); RDW 19.1 % (11.9-15.9); WHITE BLOOD COUNT 7.2 K/mm3 (4.0-10.0)
[2020-02-04 13:23] LABS: ALBUMIN 2.4 g/dl (3.4-5.0); BILIRUBIN,TOTAL 0.3 mg/dL (0.2-1); BLOOD UREA NITROGEN 58.3 mg/dL (7-18); CALCIUM 7.9 mg/dL (8.5-10.1); POTASSIUM 4.6 mmol/L (3.5-5.1); TOT PROT 6.5 g/dl (6.4-8.2)
--- NOTE | 2020-02-04 14:08 | PN ---
Progress Note, Physician History of Present Illness: DIALYSIS CATHETER REMOVED TEMPS DOWN AFEBRILE OFFERS NO COMPLAINTS REPEAT BC NO GROWTH - Current Medication List Current Medications: Active Medications Apixaban (Eliquis -) 2.5 mg PO BID [facility] Last Admin: 02/04/20 10:25 Dose: 2.5 mg Documented by: Aspirin (Asa -) 81 mg PO DAILY [facility] Last Admin: 02/04/20 10:25 Dose: 81 mg Documented by: Atorvastatin Calcium (Lipitor -) 40 mg PO HS [facility] Last Admin: 02/03/20 22:08 Dose: 40 mg Documented by: Meropenem 500 mg/ Dextrose 100 mls @ 200 mls/hr IVPB Q12H [facility] Last Admin: 02/04/20 10:25 Dose: 200 mls/hr Documented by: Insulin Aspart (Novolog Vial Sliding Scale -) 1 vial SQ ACHS [facility]; Protocol Last Admin: 02/04/20 11:31 Dose: 6 units Documented by: Insulin Detemir (Levemir Vial) 40 units SQ 0700 [facility] Last Admin: 02/04/20 06:02 Dose: 40 units Documented by: Levothyroxine Sodium (Synthroid -) 25 mcg PO DAILY@0700 [facility] Last Admin: 02/04/20 06:02 Dose: 25 mcg Documented by: - Objective Vital Signs: Vital Signs Temperature 98.8 F 02/04/20 10:32 Pulse Rate 92 H 02/04/20 10:32 Respiratory Rate 16 02/04/20 10:32 Blood Pressure 139/63 02/04/20 10:32 O2 Sat by Pulse Oximetry (%) 99 02/04/20 10:32 Constitutional: Yes: No Distress, Obese Cardiovascular: Yes: Regular Rate and Rhythm, S1, S2 Respiratory: Yes: Diminished Gastrointestinal: Yes: Normal Bowel Sounds, Soft. No: Tenderness Edema: No Labs: CBC, BMP 02/04/20 11:23 02/04/20 11:23 INR, PTT INR 1.16 (0.83-1.09) H 02/01/20 15:35 Assessment/Plan GRAM NEGATIVE/POLYMICROBIAL BACTEREMIA ? CATHETER RELATED (REMOVED) ESRD CONTINUE MEROPENEM
[2020-02-04 14:11] LABS: CREATININE 7.9 mg/dL (0.55-1.3)
--- NOTE | 2020-02-04 15:21 | PN ---
Teaching Attending Note Name of Resident: Larry Larry ATTENDING PHYSICIAN STATEMENT I saw and evaluated the patient. I reviewed the resident's note and discussed the case with the resident. I agree with the resident's findings and plan as documented. SUBJECTIVE: Feels well - no further fevers. No chills/nausea/vomiting/diarrhea. No dysuria/hematuria. OBJECTIVE: Fever resolved, Hemodynamically stable. Last Vital Signs Temp Pulse Resp BP Pulse Ox 98.3 F 81 18 157/50 L 98 02/04/20 14:00 02/04/20 14:00 02/04/20 14:00 02/04/20 14:00 02/04/20 14:00 Heart - S1, S2, RRR Lungs - clear to auscultation. R Permacath removed. Abdomen - High BMI. Soft, non-tneder. Bowel Sounds normal. Extremities - no calf tenderness, LE edema, Healed ulcers s/p skin graft LLE. LUE AV fistula, thrill+ Neuro - AAO x 3. Tone/Power normal all extremities. Laboratory Results - last 24 hr 02/03/20 02/04/20 02/04/20 22:04 05:52 11:23 WBC 7.2 RBC 3.10 L Hgb 9.4 L Hct 28.6 L MCV 92.1 MCH 30.4 MCHC 33.0 RDW 19.1 H Plt Count 176 MPV 7.8 Absolute Neuts (auto) 4.7 Neutrophils % 65.6 Lymphocytes % 20.1 Monocytes % 9.9 Eosinophils % 3.6 Basophils % 0.8 Nucleated RBC % 0 Sodium Potassium Chloride Carbon Dioxide Anion Gap BUN Creatinine Est GFR (CKD-EPI)AfAm Est GFR (CKD-EPI)NonAf POC Glucometer 287 243 Random Glucose Calcium Total Bilirubin AST ALT Alkaline Phosphatase Total Protein Albumin 02/04/20 11:23 WBC RBC Hgb Hct MCV MCH MCHC RDW Plt Count MPV Absolute Neuts (auto) Neutrophils % Lymphocytes % Monocytes % Eosinophils % Basophils % Nucleated RBC % Sodium 137 Potassium 4.6 Chloride 102 Carbon Dioxide 21 Anion Gap 14 BUN 58.3 H Creatinine 7.9 H* Est GFR (CKD-EPI)AfAm 8.21 Est GFR (CKD-EPI)NonAf 7.08 POC Glucometer Random Glucose 312 H Calcium 7.9 L Total Bilirubin 0.3 AST 9 L ALT 24 Alkaline Phosphatase 100 Total Protein 6.5 Albumin 2.4 L Current Medications Generic Name Dose Route Start Last Admin Trade Name Freq PRN Reason Stop Dose Admin Apixaban 2.5 mg 02/01/20 22:00 02/04/20 10:25 Eliquis - PO 2.5 mg BID MARY Administration Aspirin 81 mg 02/02/20 10:00 02/04/20 10:25 Asa - PO 81 mg DAILY MARY Administration Atorvastatin Calcium 40 mg 02/01/20 22:00 02/03/20 22:08 Lipitor - PO 40 mg HS MARY Administration Meropenem 500 mg/ Dextrose 100 mls @ 200 mls/hr 02/02/20 09:00 02/04/20 10:25 IVPB 200 mls/hr Q12H MARY Administration Insulin Aspart 1 vial 02/01/20 22:00 02/04/20 11:31 Novolog Vial Sliding Scale - SQ 6 units ACHS MARY Administration Protocol Insulin Detemir 40 units 02/03/20 07:00 02/04/20 06:02 Levemir Vial SQ 40 units 0700 [facility] Administration Levothyroxine Sodium 25 mcg 02/02/20 07:00 02/04/20 06:02 Synthroid - PO 25 mcg DAILY@0700 MARY Administration Home Medications Medication Instructions Recorded Apixaban [Eliquis -] 2.5 mg PO BID #28 tablet 10/12/19 Atorvastatin Ca [Lipitor] 40 mg PO DAILY #30 tablet 10/12/19 Diltiazem Cd [Cardizem Cd -] 240 mg PO DAILY #30 cap.sr 10/12/19 Levothyroxine [Synthroid -] 25 mcg PO DAILY@0700 #30 tablet 10/12/19 Aspirin 81 mg PO DAILY 12/11/19 Oxycodone HCl/Acetaminophen 10 mg PO PRN PRN 12/11/19 [Percocet 5-325 mg Tablet] Amlodipine Besylate [Norvasc -] 10 mg PO DAILY 01/28/20 Calcium Acetate [Phoslo -] 1,334 mg PO TIDCM 01/28/20 Furosemide [Lasix] 80 mg PO BID 01/28/20 Insulin Glargine,Hum.rec.anlog 80 units SQ DAILY 01/28/20 [Basaglar Kwikpen U-100] Insulin Lispro [Humalog Kwikpen 30 units SQ TID 01/28/20 U-100] Sevelamer Carbonate [Renvela -] 800 mg PO TID 01/28/20 Sodium Bicarbonate - 2 tab PO TID 01/28/20 Tizanidine HCl 2 mg PO TID 01/28/20 ASSESSMENT/PLAN: 54 year old male with history of HTN, ESRD on HD (MWF) via R permacath, s/p AV fistula 01/06 (not yet matured), History of Chronic LLE ulcers (s/p debridement and graft 08/09), DM 2, Chronic Diastolic CHF, Hypothyroidism, Asthma, Portal HTN, and Anemia of chronic disease, presents from HD with hypotension and weakness, found to febrile/septic sec to Bacteremia. 1. Sepsis secondary to Bacteremia, source likely R Permacath s/p Permacath removal 02/02 Fever, hypotension resolved. Peripheral Blood Cx and Culture from catheter positive for Pseudomonas/Serratia/NLFGNB On Meropenem, ID following. Repeat Blood Cx negative. Urine Cx negative. Echo ordered to exclude vegetations. For likely re-insertion of Permacath tomorrow prior to HD. 2. ESRD on HD (MWF) No need for HD today - further recommendations as per Nephrology. L AV fistula not yet mature. Normally on Lasix at home, initially held due to hypotension/sepsis. Received Lasix dose 02/02 by Nephrology. 3. Chronic Anemia - secondary to ESRD/chronic disease, Epo at discretion of Nephrology. 4. HTN - Amlodipine, Diltiazem held due to borderline BP in setting of Sepsis. Will resume Norvasc and discuss safety of 2 calcium channel blocking agents with Nephrology. 5. DM 2 - On Glargine 80 units at home - will Maintain on Levemir 45 units daily and Novolog sliding scale with slow up-titration of Levemir. 6. Hypothyroidism - Continue Levothyroxine. 7. HLD - Continue Statin 8. On Eliquis chronically - etiology unclear, suspected continuation after starting for recent COVID infection 10/07 - further clarification by Nephrology please (last prescription given for 3 months by Nephrology) DVT Px - on Eliquis.
[2020-02-04] MEDS: amLODIPine BESYLATE 10 MG TABLET (FP) PO SCH (16:52)
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
[2020-02-04] MEDS: ATORVASTATIN CA 40 MG TABLET (FP) PO SCH (21:46)
[2020-02-05] MEDS: INSULIN SLIDING SCALE (NOVOLOG) 1 VIAL SQ SCH ×4 (06:56→22:27)
[2020-02-05] MEDS: INSULIN (LEVEMIR) 100 UNITS/ML UNITS SQ SCH (06:56)
[2020-02-05] MEDS: LEVOTHYROXINE NA 25 MCG TABLET (FP) PO SCH (06:57)
[2020-02-05 07:17] LABS: HEMATOCRIT 27.6 % (35.4-49); HEMOGLOBIN 9.1 GM/dL (11.7-16.9); MCH 29.5 pg (25.7-33.7); MCHC 32.8 g/dl (32.0-35.9); MEAN CELL VOLUME 89.9 fl (80-96); MEAN PLT VOLUME 7.5 fl (7.5-11.1); PLATELET COUNT 199 K/MM3 (134-434); RBC 3.07 M/mm3 (4.00-5.60); RDW 19.5 % (11.9-15.9); WHITE BLOOD COUNT 7.3 K/mm3 (4.0-10.0)
[2020-02-05 07:26] LABS: BLOOD UREA NITROGEN 65.8 mg/dL (7-18); CALCIUM 7.9 mg/dL (8.5-10.1); MAGNESIUM 2.2 mg/dL (1.8-2.4); POTASSIUM 4.8 mmol/L (3.5-5.1)
[2020-02-05 07:39] LABS: CREATININE 8.2 mg/dL (0.55-1.3)
--- NOTE | 2020-02-05 09:56 | SPA.PREOP ---
- PRE-OP NOTE Dx: ESRD on HD. Has immature RUE AVF. Needs Permacath Planned Procedure: Permacatheter at 13:30hrs today (02/05/2020) Surgeon: Thomas Kitchen Last Vital Signs Temp Pulse Resp BP Pulse Ox 98.8 F 86 18 159/75 98 02/05/20 09:38 02/05/20 09:38 02/05/20 09:38 02/05/20 09:38 02/05/20 09:38 CBC, BMP 02/05/20 05:45 02/05/20 05:45 INR, PTT INR 1.16 (0.83-1.09) H 02/01/20 15:35 Laboratory Tests 02/01/20 02/01/20 12:10 15:35 INR 1.16 COVID-19 (AV) Not detected - ASSESSMENT/PLAN 1. NPO except po meds 2. GI/DVT PPX 3. Medical optimization / clearance 4. Repeat Blood cultures are negative 5. Consent to be obtained by surgeon after risks, benefits and alternatives discussed with patient and or Health Care Proxy. Problem List - Problems (1) ESRD (end stage renal disease) Code(s): N18.6 - END STAGE RENAL DISEASE (2) Hypotension Code(s): I95.9 - HYPOTENSION, UNSPECIFIED Qualifiers: Hypotension type: unspecified hypotension type Qualified Code(s): I95.9 - Hypotension, unspecified (3) Weakness Code(s): R53.1 - WEAKNESS (4) CHF (congestive heart failure) Code(s): I50.9 - HEART FAILURE, UNSPECIFIED Qualifiers: Heart failure type: unspecified Heart failure chronicity: chronic Qualified Code(s): I50.9 - Heart failure, unspecified (5) HTN (hypertension) Code(s): I10 - ESSENTIAL (PRIMARY) HYPERTENSION Qualifiers: Hypertension type: essential hypertension Qualified Code(s): I10 - Essential (primary) hypertension (6) Morbid obesity Code(s): E66.01 - MORBID (SEVERE) OBESITY DUE TO EXCESS CALORIES Visit type - Case Type Case Type: ED Admission
[2020-02-05] MEDS ORDERED: DEXTROSE 5%-WATER 100 ML IVPB ONE ×3 (10:16→22:20)
[2020-02-05] MEDS ORDERED: MEROPENEM 500 MG VIAL (RESTRICTED TO ID) IVPB ONE ×3 (10:16→22:19)
[2020-02-05] MEDS ORDERED: PT OWN MED DRAWER 7, Y5N ONE ×2 (10:17→13:22)
[2020-02-05] MEDS: amLODIPine BESYLATE 10 MG TABLET (FP) PO SCH (10:24)
[2020-02-05] MEDS: ASPIRIN 81 MG CHEWABLE TABLETS PO SCH (10:24)
[2020-02-05] MEDS: MEROPENEM 500 MG in DEXTROSE 5%-WATER 100 ML IVPB SCH ×2 (10:24→22:24)
--- NOTE | 2020-02-05 10:36 | PN ---
Progress Note, Physician History of Present Illness: pulmonary alert,comfortable,-c/o sob,-cp - Current Medication List Current Medications: Active Medications Amlodipine Besylate (Norvasc -) 10 mg PO DAILY [facility] Last Admin: 02/05/20 10:24 Dose: 10 mg Documented by: Aspirin (Asa -) 81 mg PO DAILY [facility] Last Admin: 02/05/20 10:24 Dose: 81 mg Documented by: Atorvastatin Calcium (Lipitor -) 40 mg PO HS [facility] Last Admin: 02/04/20 21:46 Dose: 40 mg Documented by: Meropenem 500 mg/ Dextrose 100 mls @ 200 mls/hr IVPB Q12H [facility] Last Admin: 02/05/20 10:24 Dose: 200 mls/hr Documented by: Insulin Aspart (Novolog Vial Sliding Scale -) 1 vial SQ ACHS [facility]; Protocol Last Admin: 02/05/20 06:56 Dose: Not Given Documented by: Insulin Detemir (Levemir Vial) 40 units SQ 0700 [facility] Last Admin: 02/05/20 06:56 Dose: Not Given Documented by: Levothyroxine Sodium (Synthroid -) 25 mcg PO DAILY@0700 [facility] Last Admin: 02/05/20 06:57 Dose: 25 mcg Documented by: - Objective Vital Signs: Vital Signs Temperature 98.8 F 02/05/20 09:38 Pulse Rate 86 02/05/20 09:38 Respiratory Rate 18 02/05/20 09:38 Blood Pressure 159/75 02/05/20 09:38 O2 Sat by Pulse Oximetry (%) 98 02/05/20 09:38 Constitutional: Yes: Calm, Obese Eyes: Yes: WNL HENT: Yes: WNL Neck: Yes: WNL Cardiovascular: Yes: Regular Rate and Rhythm, S1, S2 Respiratory: Yes: Diminished Gastrointestinal: Yes: Normal Bowel Sounds, Soft, Abdomen, Obese Extremities: Yes: WNL Edema: Yes Labs: CBC, BMP 02/05/20 05:45 02/05/20 05:45 INR, PTT INR 1.16 (0.83-1.09) H 02/01/20 15:35 Assessment/Plan Problem List - Problems (1) Hypotension Code(s): I95.9 - HYPOTENSION, UNSPECIFIED Qualifiers: Hypotension type: unspecified hypotension type Qualified Code(s): I95.9 - Hypotension, unspecified IMPROVED (2) Weakness Code(s): R53.1 - WEAKNESS (3) CHF (congestive heart failure) Code(s): I50.9 - HEART FAILURE, UNSPECIFIED Qualifiers: Heart failure type: unspecified Heart failure chronicity: chronic Qualified Code(s): I50.9 - Heart failure, unspecified (4) ESRD (end stage renal disease) Code(s): N18.6 - END STAGE RENAL DISEASE (5) HTN (hypertension) Code(s): I10 - ESSENTIAL (PRIMARY) HYPERTENSION Qualifiers: Hypertension type: essential hypertension Qualified Code(s): I10 - Essential (primary) hypertension (6) Morbid obesity Code(s): E66.01 - MORBID (SEVERE) OBESITY DUE TO EXCESS CALORIES 7. SUSPECTED OSAS 8. BACTEREMIA PLAN: Permacath to be removed IVF ABX coverage per ID Follow I & O Lasix per Renal Sleep screen DR BENAVIDES
--- NOTE | 2020-02-05 11:24 | ECHO ---
Version: 1 Name: HONORIO TOVAR Exam: Adult Echocardiogram Study Date: 02/05/2020, 9:22 AM Age: 54 Years MMode/2D Measurements & Calculations IVSd: 1.01 cm LVIDs: 3.9 cm LVIDd: 6.0 cm LVPWd: 1.09 cm LAV (MOD-bp): 137.0 ml ACS: 1.79 cm Ao root diam: 3.3 cm LVOT diam: 1.95 cm LA dimension: 5.4 cm Doppler Measurements & Calculations MV E max harvey: 128.3 cm/sec Med E/e': 23.9 MV A max harvey: 138.2 cm/sec Med Peak E' Harvey: 5.4 cm/sec MV E/A: 0.93 Lat E/e': 14.0 Lat Peak E' Harvey: 9.2 cm/sec Ao max P.2 mmHg ERIC(I,D): 2.8 cm Ao mean P.0 mmHg LV V1 mean: 96.8 cm/sec Ao V2 max: 152.0 cm/sec LV V1 mean P.2 mmHg TR max harvey: 284.6 cm/sec TR max P.6 mmHg Procedure A complete two-dimensional transthoracic echocardiogram was performed (2D, M-mode, Doppler and color flow Doppler). The study was technically difficult with many images being suboptimal in quality. Left Ventricle The left ventricle is mildly dilated. Left ventricular systolic function is normal. Ejection Fractio n = 65%. E/A reversal consistent with but not diagnostic of poor LV compliance. The left ventricular wall mot ion is normal. Right Ventricle The right ventricle is normal in size and function. Atria The left atrium is moderately dilated. Right atrial size is normal. Mitral Valve The mitral valve is normal in structure and function. There is mild mitral annular calcification. Th ere is trace to mild mitral regurgitation. Tricuspid Valve The tricuspid valve is normal in structure and function. There is mild tricuspid regurgitation. Righ t ventricular systolic pressure is 36 mmhg. Aortic Valve The aortic valve is not well visualized. Pulmonic Valve The pulmonic valve is not well visualized. Great Vessels The aortic root is normal size. Pericardium/Pleura There is no pericardial effusion. There is no pleural effusion. Summary Statements There is no evidence of a mass or vegetation. This does not rule out endocarditis. The right ventricle is normal in size and function. There is no evidence of a mass or vegetation. This does not rule out endocarditis. The study was technically difficult with many images being suboptimal in quality. The left ventricle is mildly dilated. Left ventricular systolic function is normal. Ejection Fraction = 65%. The left atrium is moderately dilated. There is mild mitral annular calcification. There is trace to mild mitral regurgitation. There is mild tricuspid regurgitation. MD Joni Damon 02/05/2020, 11:24 AM Ordering Physician: Ernst Rangel Referring Physician: ERNST RANGEL Performed By: Delmy Goins
--- NOTE | 2020-02-05 12:16 | PN ---
Progress Note (short form) - Note Progress Note: RENAL Pt has pseudomonas growing in blood cultures from yesterday are negative so far has been urinating Last Vital Signs Temp Pulse Resp BP Pulse Ox 98.8 F 86 18 159/75 98 02/05/20 09:38 02/05/20 09:38 02/05/20 09:38 02/05/20 09:38 02/05/20 09:38 lungs clear cvs s1s2 rr abd soft ext trace edema neuro a+ox3 CBC, BMP 02/05/20 05:45 02/05/20 05:45 Current Medications Generic Name Dose Route Start Last Admin Trade Name Freq PRN Reason Stop Dose Admin Amlodipine Besylate 10 mg 02/04/20 15:30 02/05/20 10:24 Norvasc - PO 10 mg DAILY MARY Administration Aspirin 81 mg 02/02/20 10:00 02/05/20 10:24 Asa - PO 81 mg DAILY MARY Administration Atorvastatin Calcium 40 mg 02/01/20 22:00 02/04/20 21:46 Lipitor - PO 40 mg HS MARY Administration Meropenem 500 mg/ Dextrose 100 mls @ 200 mls/hr 02/02/20 09:00 02/05/20 10:24 IVPB 200 mls/hr Q12H MARY Administration Insulin Aspart 1 vial 02/01/20 22:00 02/05/20 11:50 Novolog Vial Sliding Scale - SQ Not Given ACHS [facility] Protocol Insulin Detemir 40 units 02/03/20 07:00 02/05/20 06:56 Levemir Vial SQ Not Given 0700 [facility] Levothyroxine Sodium 25 mcg 02/02/20 07:00 02/05/20 06:57 Synthroid - PO 25 mcg DAILY@0700 MARY Administration IMPRESSION possible line sepsis, s/p removal of catheter dm htn pseudomonas bacteremia plan cultures remain neg, would insert PC will hold hd today no emergent need for hd today lasix may be able to hold hd until permcath can be inserted MV
[2020-02-05] MEDS ORDERED: LIDOCAINE HCL/PF 2% SDV 5ML VIAL ONE (12:37)
[2020-02-05] MEDS ORDERED: PROPOFOL 20 ML ONE ×3 (12:37→13:10)
[2020-02-05] MEDS ORDERED: MIDAZOLAM HCL 2 MG/2 ML SINGLE DOSE VIAL ONE ×4 (12:38→14:44)
[2020-02-05] MEDS ORDERED: LIDOCAINE HCL 1%, 10 MG/ML (20ML VIAL) ONE (13:03)
[2020-02-05] MEDS ORDERED: HEPARIN NA (PORCINE) 5,000 UNITS/ML 1ML VIAL ONE (13:08)
[2020-02-05] MEDS ORDERED: EPHEDRINE SULFATE/0.9% NACL/PF 50 MG/10 ML SYRINGE NR ONE (13:10)
--- NOTE | 2020-02-05 14:07 | PN ---
Teaching Attending Note Name of Resident: Larry Larry ATTENDING PHYSICIAN STATEMENT I saw and evaluated the patient. I reviewed the resident's note and discussed the case with the resident. I agree with the resident's findings and plan as documented. SUBJECTIVE: Patient feels well has no complaints. Plan for HD Catheter placement today OBJECTIVE: Vital Signs Period Temp Pulse Resp BP Sys/Swartz Pulse Ox Last 24 Hr 97.7 F-98.8 F 82-89 16-20 146-165/48-79 97-98 GENERAL: Awake, alert, and fully oriented, in no acute distress. HEAD: Normal with no signs of trauma. EYES: Pupils equal, round and reactive to light, extraocular movements intact, sclera anicteric, conjunctiva clear. No lid lag. EARS, NOSE, THROAT: Ears normal, nares patent, oropharynx clear without exudates. Moist mucous membranes. NECK: Normal range of motion, supple without lymphadenopathy, JVD, or masses. LUNGS: Breath sounds equal, clear to auscultation bilaterally. No wheezes, and no crackles. No accessory muscle use. HEART: Regular rate and rhythm, normal S1 and S2 without murmur, rub or gallop. ABDOMEN: Soft, nontender, not distended, normoactive bowel sounds, no guarding, no rebound, no masses. No hepatomegaly or splenomegaly. Obese MUSCULOSKELETAL: Normal range of motion at all joints. No bony deformities or tenderness. No CVA tenderness. UPPER EXTREMITIES: 2+ pulses, warm, well-perfused. No cyanosis. No clubbing. Cap refill <2 seconds. No peripheral edema. LOWER EXTREMITIES: 2+ pulses, warm, well-perfused. No calf tenderness. Skin graft doner and recipient noted, no signs of infection, NEUROLOGICAL: Cranial nerves II-XII intact. Normal speech. PSYCHIATRIC: Cooperative. Good eye contact. Appropriate mood and affect. SKIN: Warm, dry, normal turgor, no rashes or lesions noted. ASSESSMENT AND PLAN: 54 y/o M with hx of ESRD on HD who presents with hypotension found to have gram negative bacteremia Gram Negative Bacteremia: HD catheter removed, plan to replace today Continue meropenam at this time Hess sensitive, narrow Abx to medication that can be dosed with HD if possible Appreciate Nephro recs Patient needs 2 weeks of abx from last negative blood culture Rest of plan as per resident note
[2020-02-05] MEDS ORDERED: ceFAZolin SODIUM 1 GM VIAL IVPB ONE (14:45)
[2020-02-05] MEDS ORDERED: LIDOCAINE HCL 1%, 10 MG/ML (20ML VIAL) NR ONE (15:00)
--- NOTE | 2020-02-05 15:11 | OP ---
Operative Note - Note: Operative Date: 02/05/20 Pre-Operative Diagnosis: ESRD Operation: Insertion of permacath Post-Operative Diagnosis: Same as Pre-op Surgeon: Thomas Kitchen Anesthesia: MAC Estimated Blood Loss (mls): 20 Operative Report Dictated: Yes
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
[2020-02-05] MEDS: ATORVASTATIN CA 40 MG TABLET (FP) PO SCH (22:24)
[2020-02-06] MEDS: INSULIN SLIDING SCALE (NOVOLOG) 1 VIAL SQ SCH ×4 (06:20→21:55)
[2020-02-06] MEDS: LEVOTHYROXINE NA 25 MCG TABLET (FP) PO SCH (06:21)
[2020-02-06] MEDS: INSULIN (LEVEMIR) 100 UNITS/ML UNITS SQ SCH (06:21)
[2020-02-06 07:12] LABS: HEMATOCRIT 26.8 % (35.4-49); MCH 30.3 pg (25.7-33.7); MCHC 33.5 g/dl (32.0-35.9); MEAN CELL VOLUME 90.5 fl (80-96); MEAN PLT VOLUME 7.5 fl (7.5-11.1); PLATELET COUNT 228 K/MM3 (134-434); RBC 2.96 M/mm3 (4.00-5.60); RDW 19.2 % (11.9-15.9); WHITE BLOOD COUNT 6.2 K/mm3 (4.0-10.0)
[2020-02-06 07:32] LABS: BLOOD UREA NITROGEN 73.9 mg/dL (7-18); CALCIUM 7.7 mg/dL (8.5-10.1); MAGNESIUM 2.1 mg/dL (1.8-2.4); POTASSIUM 4.8 mmol/L (3.5-5.1)
[2020-02-06 07:42] LABS: CREATININE 8.5 mg/dL (0.55-1.3)
[2020-02-06] MEDS ORDERED: INSULIN (LEVEMIR) 100 UNITS/ML UNITS SQ ONE (07:58)
[2020-02-06] MEDS ORDERED: INSULIN SLIDING SCALE (NOVOLOG) 1 VIAL SQ ONE (07:58)
[2020-02-06 08:06] LABS: PHOSPHOROUS 8.9 mg/dL (2.5-4.9)
[2020-02-06] MEDS ORDERED: DEXTROSE 5%-WATER 100 ML IVPB ONE ×2 (09:03→21:48)
[2020-02-06] MEDS ORDERED: MEROPENEM 500 MG VIAL (RESTRICTED TO ID) IVPB ONE ×2 (09:03→21:47)
[2020-02-06] MEDS: ASPIRIN 81 MG CHEWABLE TABLETS PO SCH (09:36)
[2020-02-06] MEDS: amLODIPine BESYLATE 10 MG TABLET (FP) PO SCH (09:36)
[2020-02-06] MEDS: MEROPENEM 500 MG in DEXTROSE 5%-WATER 100 ML IVPB SCH ×2 (09:36→21:54)
--- NOTE | 2020-02-06 10:41 | PN ---
Progress Note, Physician History of Present Illness: PULMONARY NO DISTRESS,-SOB,-CP.SLEEP SCREEN AHI 16.3 - Current Medication List Current Medications: Active Medications Amlodipine Besylate (Norvasc -) 10 mg PO DAILY [facility] Last Admin: 02/06/20 09:36 Dose: 10 mg Documented by: Aspirin (Asa -) 81 mg PO DAILY [facility] Last Admin: 02/06/20 09:36 Dose: 81 mg Documented by: Atorvastatin Calcium (Lipitor -) 40 mg PO HS [facility] Last Admin: 02/05/20 22:24 Dose: 40 mg Documented by: Meropenem 500 mg/ Dextrose 100 mls @ 200 mls/hr IVPB Q12H [facility] Last Admin: 02/06/20 09:36 Dose: 200 mls/hr Documented by: Insulin Aspart (Novolog Vial Sliding Scale -) 1 vial SQ ACHS [facility]; Protocol Last Admin: 02/06/20 06:20 Dose: 54 units Documented by: Insulin Detemir (Levemir Vial) 40 units SQ 0700 [facility] Last Admin: 02/06/20 06:21 Dose: 40 units Documented by: Levothyroxine Sodium (Synthroid -) 25 mcg PO DAILY@0700 [facility] Last Admin: 02/06/20 06:21 Dose: 25 mcg Documented by: - Objective Vital Signs: Vital Signs Temperature 98.2 F 02/06/20 06:00 Pulse Rate 79 02/06/20 06:00 Respiratory Rate 19 02/06/20 06:00 Blood Pressure 128/54 L 02/06/20 06:00 O2 Sat by Pulse Oximetry (%) 98 02/05/20 22:39 Constitutional: Yes: Well Nourished, Calm, Obese Eyes: Yes: WNL HENT: Yes: WNL Neck: Yes: WNL Cardiovascular: Yes: Regular Rate and Rhythm, S1, S2 Respiratory: Yes: Diminished Gastrointestinal: Yes: Normal Bowel Sounds, Soft Extremities: Yes: WNL Edema: Yes Labs: CBC, BMP 02/06/20 05:34 02/06/20 05:34 INR, PTT INR 1.16 (0.83-1.09) H 02/01/20 15:35 Assessment/Plan Problem List - Problems (1) Hypotension Code(s): I95.9 - HYPOTENSION, UNSPECIFIED Qualifiers: Hypotension type: unspecified hypotension type Qualified Code(s): I95.9 - Hypotension, unspecified IMPROVED (2) Weakness Code(s): R53.1 - WEAKNESS (3) CHF (congestive heart failure) Code(s): I50.9 - HEART FAILURE, UNSPECIFIED Qualifiers: Heart failure type: unspecified Heart failure chronicity: chronic Qualified Code(s): I50.9 - Heart failure, unspecified (4) ESRD (end stage renal disease) Code(s): N18.6 - END STAGE RENAL DISEASE (5) HTN (hypertension) Code(s): I10 - ESSENTIAL (PRIMARY) HYPERTENSION Qualifiers: Hypertension type: essential hypertension Qualified Code(s): I10 - Essential (primary) hypertension (6) Morbid obesity Code(s): E66.01 - MORBID (SEVERE) OBESITY DUE TO EXCESS CALORIES 7. SUSPECTED OSAS 8. BACTEREMIA PLAN: Permacath reinserted IVF ABX coverage per ID Follow I & O Lasix per Renal formal sleep studies outpatient DR BENAVIDES
--- NOTE | 2020-02-06 10:42 | PN ---
Progress Note (short form) - Note Progress Note: POD 1, s/p PC placement Pt seen and examined. Reports he is doing well after PC placement. No issues overnight. Has not been dialyzed yet. Awaiting fistula duplex. Denies cp/sob. n.v.d. Vital Signs Temp 98.2 F 02/06/20 06:00 Pulse 79 02/06/20 06:00 Resp 19 02/06/20 06:00 BP 128/54 L 02/06/20 06:00 Pulse Ox 98 02/05/20 22:39 Intake & Output 02/05/20 02/05/20 02/06/20 11:59 23:59 11:59 Intake Total 50 380 150 Output Total 650 800 200 Balance -600 -420 -50 Weight 314 lb 12.8 oz Intake: IV 160 RAC 20 02/01/2020 10 IVPB 100 Oral 50 120 150 Output: Urine 650 800 200 Void 650 800 200 Other: Voiding Method Toilet Toilet Toilet # Unmeasured Voids Void 600 Bowel Movement No No Weight Measurement Method Standing Scale CBC, BMP 02/06/20 05:34 02/06/20 05:34 gen: awake alert, nad, sitting at edge of bed eating breakfast Resp: unlabored on RA Chest: PC in place with saturated dressing overlying, dressing changed, small area of ecchymosis adjacent to catheter, no bleeding noted. no erythema or drainage, new 4x4s placed Ext: LUE with avf in place, palpable thrill well healed incision A/P: 54 y/o male w/ PMHx HTN, ESRD (HD MWF since Jul, oliguric), chronic LLE ulcers (debridement and graft Jul), IDDM, HFpEF, hypothyroidism, asthma, portal HTN, and anemia of chronic disease admitted from HD with hypotension and weakness. hd per renal pt should f/u in the office 2 weeks for duplex of avf call with questions/concerns
--- NOTE | 2020-02-06 13:54 | PN ---
Teaching Attending Note Name of Resident: Larry Larry ATTENDING PHYSICIAN STATEMENT I saw and evaluated the patient. I reviewed the resident's note and discussed the case with the resident. I agree with the resident's findings and plan as documented. SUBJECTIVE: Patient feels well has no complaints OBJECTIVE: Vital Signs Period Temp Pulse Resp BP Sys/Swartz Pulse Ox Last 24 Hr 97.8 F-98.6 F 77-89 16-19 128-166/54-76 97-100 GENERAL: Awake, alert, No distress. generalized edema noted HEAD: Normal with no signs of trauma. EYES: Pupils equal, round and reactive to light, extraocular movements intact, sclera anicteric, conjunctiva clear. No lid lag. EARS, NOSE, THROAT: Ears normal, nares patent, oropharynx clear without exudates. Moist mucous membranes. NECK: Normal range of motion, No JVD LUNGS: Breath sounds equal, clear to auscultation bilaterally. No wheezes, and no crackles. No accessory muscle use. HEART: Regular rate and rhythm, normal S1 and S2 without murmur, rub or gallop. ABDOMEN: Soft, nontender, not distended, normoactive bowel sounds, no guarding, no rebound, no masses. No hepatomegaly or splenomegaly. MUSCULOSKELETAL: Normal range of motion at all joints. No bony deformities or tenderness. No CVA tenderness. LUE AV fistula noted; HD Cath noted on chest wall NEUROLOGICAL: Cranial nerves II-XII intact. Normal speech. PSYCHIATRIC: Cooperative. Good eye contact. Appropriate mood and affect. SKIN: Warm, dry, Skin graft doner and recipient noted, no signs of infection, ASSESSMENT AND PLAN: 54 y/o M with hx of ESRD on HD who presents with hypotension found to have gram negative bacteremia Gram Negative Bacteremia: HD catheter replaced, Patient needs HD to assess the catheter Continue meropenam at this time, look see if antibiotics can be administered with HD vs. PICC line --defer to ID/Nephro recs Appreciate Nephro recs Patient needs 2 weeks of abx from last negative blood culture Rest of plan as per resident note
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
--- NOTE | 2020-02-06 15:37 | PN ---
Progress Note (short form) - Note Progress Note: RENAL Pt awake and alert comfortable had a permcath placed Last Vital Signs Temp Pulse Resp BP Pulse Ox 97.2 F L 83 18 143/62 100 02/06/20 13:57 02/06/20 13:57 02/06/20 13:57 02/06/20 13:57 02/06/20 10:00 lungs clear cvs s1s2 rr abd soft ext trace edema neuro a+ox3 CBC, BMP 02/06/20 05:34 02/06/20 05:34 Current Medications Generic Name Dose Route Start Last Admin Trade Name Howard PRN Reason Stop Dose Admin Amlodipine Besylate 10 mg 02/06/20 10:00 02/06/20 09:36 Norvasc - PO 10 mg DAILY MARY Administration Aspirin 81 mg 02/06/20 10:00 02/06/20 09:36 Asa - PO 81 mg DAILY MARY Administration Atorvastatin Calcium 40 mg 02/05/20 22:00 02/05/20 22:24 Lipitor - PO 40 mg HS MARY Administration Meropenem 500 mg/ Dextrose 100 mls @ 200 mls/hr 02/05/20 21:00 02/06/20 09:36 IVPB 200 mls/hr Q12H MARY Administration Insulin Aspart 1 vial 02/05/20 16:30 02/06/20 11:45 Novolog Vial Sliding Scale - SQ 6 units ACHS MARY Administration Protocol Insulin Detemir 40 units 02/06/20 07:00 02/06/20 06:21 Levemir Vial SQ 40 units 0700 MARY Administration Levothyroxine Sodium 25 mcg 02/06/20 07:00 02/06/20 06:21 Synthroid - PO 25 mcg DAILY@0700 MARY Administration IMPRESSION possible line sepsis, now better dm htn esrd morbid obesity plan I called hd unit and will dialyze today He has significant residual renal function and has not needed HD MV
[2020-02-06] MEDS ORDERED: SODIUM CHLORIDE 250 ML IV PRN (15:40)
[2020-02-06] MEDS: ATORVASTATIN CA 40 MG TABLET (FP) PO SCH (21:54)
--- NOTE | 2020-02-06 22:57 | PN ---
Progress Note, Physician History of Present Illness: DIALYSIS CATHETER REMOVED TEMPS DOWN AFEBRILE OFFERS NO COMPLAINTS REPEAT BC NO GROWTH - Current Medication List Current Medications: Active Medications Amlodipine Besylate (Norvasc -) 10 mg PO DAILY [facility] Last Admin: 02/06/20 09:36 Dose: 10 mg Documented by: Aspirin (Asa -) 81 mg PO DAILY [facility] Last Admin: 02/06/20 09:36 Dose: 81 mg Documented by: Atorvastatin Calcium (Lipitor -) 40 mg PO HS [facility] Last Admin: 02/06/20 21:54 Dose: 40 mg Documented by: Meropenem 500 mg/ Dextrose 100 mls @ 200 mls/hr IVPB Q12H [facility] Last Admin: 02/06/20 21:54 Dose: 200 mls/hr Documented by: Sodium Chloride (Normal Saline -) 250 mls @ 3,000 mls/hr IV PRN PRN PRN Reason: Hypotension during Dialysis Stop: 02/07/20 15:40 Insulin Aspart (Novolog Vial Sliding Scale -) 1 vial SQ ACHS [facility]; Protocol Last Admin: 02/06/20 21:55 Dose: Not Given Documented by: Insulin Detemir (Levemir Vial) 40 units SQ 0700 [facility] Last Admin: 02/06/20 06:21 Dose: 40 units Documented by: Levothyroxine Sodium (Synthroid -) 25 mcg PO DAILY@0700 [facility] Last Admin: 02/06/20 06:21 Dose: 25 mcg Documented by: - Objective Vital Signs: Vital Signs Temperature 97.5 F L 02/06/20 17:00 Pulse Rate 81 02/06/20 21:00 Respiratory Rate 17 02/06/20 21:00 Blood Pressure 144/72 02/06/20 21:00 O2 Sat by Pulse Oximetry (%) 99 02/06/20 17:00 Constitutional: Yes: No Distress Eyes: Yes: Conjunctiva Clear Cardiovascular: Yes: Regular Rate and Rhythm, S1, S2 Respiratory: Yes: CTA Bilaterally Gastrointestinal: Yes: Normal Bowel Sounds, Soft Edema: No Labs: CBC, BMP 02/06/20 05:34 02/06/20 05:34 INR, PTT INR 1.16 (0.83-1.09) H 02/01/20 15:35 Assessment/Plan GRAM NEGATIVE/POLYMICROBIAL BACTEREMIA ? CATHETER RELATED (REMOVED) ESRD CONTINUE MEROPENEM
[2020-02-07] MEDS: INSULIN (LEVEMIR) 100 UNITS/ML UNITS SQ SCH (06:34)
[2020-02-07] MEDS: INSULIN SLIDING SCALE (NOVOLOG) 1 VIAL SQ SCH ×4 (06:35→21:16)
[2020-02-07] MEDS: LEVOTHYROXINE NA 25 MCG TABLET (FP) PO SCH (07:06)
[2020-02-07 07:16] LABS: HEMATOCRIT 27.6 % (35.4-49); HEMOGLOBIN 9.2 GM/dL (11.7-16.9); MCH 29.8 pg (25.7-33.7); MCHC 33.2 g/dl (32.0-35.9); MEAN PLT VOLUME 7.3 fl (7.5-11.1); PLATELET COUNT 242 K/MM3 (134-434); RBC 3.07 M/mm3 (4.00-5.60); WHITE BLOOD COUNT 5.7 K/mm3 (4.0-10.0)
[2020-02-07 07:57] LABS: CALCIUM 7.9 mg/dL (8.5-10.1); CREATININE 5.2 mg/dL (0.55-1.3); MAGNESIUM 1.8 mg/dL (1.8-2.4); PHOSPHOROUS 5.8 mg/dL (2.5-4.9)
[2020-02-07 08:03] LABS: BLOOD UREA NITROGEN 38.1 mg/dL (7-18)
[2020-02-07] MEDS ORDERED: MEROPENEM 500 MG VIAL (RESTRICTED TO ID) IVPB ONE ×2 (08:20→21:02)
[2020-02-07] MEDS ORDERED: DEXTROSE 5%-WATER 100 ML IVPB ONE ×2 (08:20→21:02)
[2020-02-07] MEDS: amLODIPine BESYLATE 10 MG TABLET (FP) PO SCH (09:34)
[2020-02-07] MEDS: MEROPENEM 500 MG in DEXTROSE 5%-WATER 100 ML IVPB SCH ×2 (09:34→21:12)
[2020-02-07] MEDS: ASPIRIN 81 MG CHEWABLE TABLETS PO SCH (09:34)
--- NOTE | 2020-02-07 09:46 | PN ---
Progress Note (short form) - Note Progress Note: RENAL Pt awake and alert comfortable was dialyzed yesterday feels well Last Vital Signs Temp Pulse Resp BP Pulse Ox 98.9 F 79 18 137/54 L 94 L 02/07/20 06:00 02/07/20 06:00 02/07/20 06:00 02/07/20 06:00 02/07/20 06:00 lungs clear cvs s1s2 rr abd soft ext trace edema neuro a+ox3 CBC, BMP 02/07/20 05:37 02/07/20 05:37 Current Medications Generic Name Dose Route Start Last Admin Trade Name Freq PRN Reason Stop Dose Admin Amlodipine Besylate 10 mg 02/06/20 10:00 02/07/20 09:34 Norvasc - PO 10 mg DAILY MARY Administration Aspirin 81 mg 02/06/20 10:00 02/07/20 09:34 Asa - PO 81 mg DAILY MARY Administration Atorvastatin Calcium 40 mg 02/05/20 22:00 02/06/20 21:54 Lipitor - PO 40 mg HS MARY Administration Meropenem 500 mg/ Dextrose 100 mls @ 200 mls/hr 02/05/20 21:00 02/07/20 09:34 IVPB 200 mls/hr Q12H MARY Administration Sodium Chloride 250 mls @ 3,000 mls/hr 02/06/20 15:40 Normal Saline - IV 02/07/20 15:40 PRN PRN Hypotension during Dialysis Insulin Aspart 1 vial 02/05/20 16:30 02/07/20 06:35 Novolog Vial Sliding Scale - SQ 4 units ACHS MARY Administration Protocol Insulin Detemir 40 units 02/06/20 07:00 02/07/20 06:34 Levemir Vial SQ 40 units 0700 MARY Administration Levothyroxine Sodium 25 mcg 02/06/20 07:00 02/07/20 07:06 Synthroid - PO 25 mcg DAILY@0700 MARY Administration IMPRESSION possible line sepsis, now better dm htn esrd morbid obesity plan will dialyze tomorrow he had pseudomonas sensitive to ceftaz and levaquin which can be given as outpatient MV
[2020-02-07] MEDS: SEVELAMER CARBONATE 800 MG TAB (FP) PO SCH ×2 (11:48→17:04)
--- NOTE | 2020-02-07 13:49 | PN ---
Teaching Attending Note Name of Resident: Larry Larry ATTENDING PHYSICIAN STATEMENT I saw and evaluated the patient. I reviewed the resident's note and discussed the case with the resident. I agree with the resident's findings and plan as documented. SUBJECTIVE: patient resting comfortably, understands he needs to be in the hospital for IV Abx OBJECTIVE: GENERAL: Awake, alert, No distress. HEAD: Normal with no signs of trauma. EYES: Pupils equal, round and reactive to light, extraocular movements intact, sclera anicteric, conjunctiva clear. No lid lag. EARS, NOSE, THROAT: Ears normal, nares patent, oropharynx clear without exudates. Moist mucous membranes. NECK: Normal range of motion, No JVD LUNGS: Breath sounds equal, clear to auscultation bilaterally. No wheezes, and no crackles. No accessory muscle use. HEART: Regular rate and rhythm, normal S1 and S2 without murmur, rub or gallop. ABDOMEN: Soft, nontender, not distended, normoactive bowel sounds, no guarding, no rebound, no masses. No hepatomegaly or splenomegaly. MUSCULOSKELETAL: Normal range of motion at all joints. No bony deformities or tenderness. No CVA tenderness. LUE AV fistula noted; HD Cath noted on chest wall NEUROLOGICAL: Cranial nerves II-XII intact. Normal speech. PSYCHIATRIC: Cooperative. Good eye contact. Appropriate mood and affect. SKIN: Warm, dry, Skin graft doner and recipient noted, no signs of infection, ASSESSMENT AND PLAN: 54 y/o M with hx of ESRD on HD who presents with hypotension found to have gram negative bacteremia Gram Negative Bacteremia: HD catheter replaced, patient dialyzed yesterday Continue Meropenam for a total of 7 days then PO abx for 7 additional days as per ID BP Management as noted in Resident note Restart home medications as tolerated Rest of plan as per resident note
--- NOTE | 2020-02-07 15:34 | PN ---
Progress Note (short form) - Note Progress Note: Resting in NAD. No CP or SOB. No acute events overnight. Intake & Output 02/04/20 02/05/20 02/06/20 02/07/20 23:59 23:59 23:59 23:59 Intake Total 850 841 0557 770 Output Total 600 1450 58231 400 Balance -200 -7930 -37119 370 Weight 316 lb 12.8 oz 314 lb 12.8 oz 315 lb 6.4 oz Last Vital Signs Temp Pulse Resp BP Pulse Ox 98.4 F 87 16 125/81 96 02/07/20 14:12 02/07/20 14:12 02/07/20 14:12 02/07/20 14:12 02/07/20 09:30 Active Medications Amlodipine Besylate (Norvasc -) 10 mg PO DAILY [facility] Last Admin: 02/07/20 09:34 Dose: 10 mg Documented by: Aspirin (Asa -) 81 mg PO DAILY [facility] Last Admin: 02/07/20 09:34 Dose: 81 mg Documented by: Atorvastatin Calcium (Lipitor -) 40 mg PO HS [facility] Last Admin: 02/06/20 21:54 Dose: 40 mg Documented by: Meropenem 500 mg/ Dextrose 100 mls @ 200 mls/hr IVPB Q12H [facility] Last Admin: 02/07/20 09:34 Dose: 200 mls/hr Documented by: Sodium Chloride (Normal Saline -) 250 mls @ 3,000 mls/hr IV PRN PRN PRN Reason: Hypotension during Dialysis Stop: 02/07/20 15:40 Insulin Aspart (Novolog Vial Sliding Scale -) 1 vial SQ ACHS [facility]; Protocol Last Admin: 02/07/20 11:44 Dose: 4 units Documented by: Insulin Detemir (Levemir Vial) 40 units SQ 0700 [facility] Last Admin: 02/07/20 06:34 Dose: 40 units Documented by: Levothyroxine Sodium (Synthroid -) 25 mcg PO DAILY@0700 [facility] Last Admin: 02/07/20 07:06 Dose: 25 mcg Documented by: Sevelamer Carbonate (Renvela -) 800 mg PO TIDCM [facility] Last Admin: 02/07/20 11:48 Dose: 800 mg Documented by: General: Awake and alert, NAD on RA HEENT mucous membranes moist, no anemia, no jaundice Neck: No JVD, dialysis cannula, no surrounding inflammation supple, no bruit, thyroid palpably normal, normal carotid pulsations. Chest: Nontender, bilateral basal rales. CVS: S1-S2 regular no murmur/gallop/rub Abdomen: Nondistended, soft, bowel sounds present. 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 , no gross motor sensory deficit Laboratory Results - last 24 hr 02/06/20 02/06/20 02/07/20 16:44 21:53 05:37 WBC 5.7 RBC 3.07 L Hgb 9.2 L Hct 27.6 L MCV 90.0 MCH 29.8 MCHC 33.2 RDW 19.0 H Plt Count 242 MPV 7.3 L Sodium Potassium Chloride Carbon Dioxide Anion Gap BUN Creatinine Est GFR (CKD-EPI)AfAm Est GFR (CKD-EPI)NonAf POC Glucometer 163 125 Random Glucose Calcium Phosphorus Magnesium 02/07/20 02/07/20 05:37 06:18 WBC RBC Hgb Hct MCV MCH MCHC RDW Plt Count MPV Sodium 140 Potassium 4.0 Chloride 101 Carbon Dioxide 29 Anion Gap 11 BUN 38.1 H Creatinine 5.2 H Est GFR (CKD-EPI)AfAm 13.60 Est GFR (CKD-EPI)NonAf 11.74 POC Glucometer 246 Random Glucose 262 H Calcium 7.9 L Phosphorus 5.8 H Magnesium 1.8 Problem List - Problems (1) Hypotension Code(s): I95.9 - HYPOTENSION, UNSPECIFIED Qualifiers: Hypotension type: unspecified hypotension type Qualified Code(s): I95.9 - Hypotension, unspecified (2) Weakness Code(s): R53.1 - WEAKNESS (3) CHF (congestive heart failure) Code(s): I50.9 - HEART FAILURE, UNSPECIFIED Qualifiers: Heart failure type: unspecified Heart failure chronicity: chronic Qualified Code(s): I50.9 - Heart failure, unspecified (4) ESRD (end stage renal disease) Code(s): N18.6 - END STAGE RENAL DISEASE (5) HTN (hypertension) Code(s): I10 - ESSENTIAL (PRIMARY) HYPERTENSION Qualifiers: Hypertension type: essential hypertension Qualified Code(s): I10 - Essential (primary) hypertension (6) Morbid obesity Code(s): E66.01 - MORBID (SEVERE) OBESITY DUE TO EXCESS CALORIES PLAN: ABX coverage per ID Follow I & O Supplemental O2 as needed Dr Jean
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
[2020-02-07] MEDS: HEPARIN NA (PORCINE) 5,000 UNITS/ML 1ML VIAL SQ SCH ×2 (17:04→21:16)
[2020-02-07] MEDS: ATORVASTATIN CA 40 MG TABLET (FP) PO SCH (21:12)
[2020-02-08] MEDS: LEVOTHYROXINE NA 25 MCG TABLET (FP) PO SCH (06:30)
[2020-02-08] MEDS: HEPARIN NA (PORCINE) 5,000 UNITS/ML 1ML VIAL SQ SCH ×3 (06:30→21:30)
[2020-02-08] MEDS: INSULIN SLIDING SCALE (NOVOLOG) 1 VIAL SQ SCH ×4 (06:30→21:31)
[2020-02-08] MEDS: INSULIN (LEVEMIR) 100 UNITS/ML UNITS SQ SCH (06:30)
[2020-02-08 07:06] LABS: HEMATOCRIT 26.8 % (35.4-49); HEMOGLOBIN 8.8 GM/dL (11.7-16.9); MCH 29.9 pg (25.7-33.7); MCHC 32.8 g/dl (32.0-35.9); MEAN CELL VOLUME 91.2 fl (80-96); MEAN PLT VOLUME 7.6 fl (7.5-11.1); PLATELET COUNT 245 K/MM3 (134-434); RBC 2.94 M/mm3 (4.00-5.60); RDW 18.5 % (11.9-15.9); WHITE BLOOD COUNT 7.2 K/mm3 (4.0-10.0)
[2020-02-08 07:32] LABS: CALCIUM 7.8 mg/dL (8.5-10.1); CREATININE 6.4 mg/dL (0.55-1.3); MAGNESIUM 1.8 mg/dL (1.8-2.4); PHOSPHOROUS 8.2 mg/dL (2.5-4.9); POTASSIUM 4.5 mmol/L (3.5-5.1)
[2020-02-08 07:37] LABS: BLOOD UREA NITROGEN 57.1 mg/dL (7-18)
[2020-02-08] MEDS ORDERED: DEXTROSE 5%-WATER 100 ML IVPB ONE ×2 (07:59→20:57)
[2020-02-08] MEDS ORDERED: MEROPENEM 500 MG VIAL (RESTRICTED TO ID) IVPB ONE ×2 (07:59→20:57)
[2020-02-08] MEDS: MEROPENEM 500 MG in DEXTROSE 5%-WATER 100 ML IVPB SCH ×2 (08:25→21:31)
[2020-02-08] MEDS: SEVELAMER CARBONATE 800 MG TAB (FP) PO SCH ×3 (08:25→17:58)
[2020-02-08] MEDS: ASPIRIN 81 MG CHEWABLE TABLETS PO SCH (10:17)
[2020-02-08] MEDS: amLODIPine BESYLATE 10 MG TABLET (FP) PO SCH (10:17)
--- NOTE | 2020-02-08 11:04 | PN ---
Progress Note (short form) - Note Progress Note: RENAL Pt awake and alert comfortable awaiting hd today Last Vital Signs Temp Pulse Resp BP Pulse Ox 98.2 F 85 20 153/68 96 02/08/20 06:00 02/08/20 06:00 02/08/20 06:00 02/08/20 06:00 02/08/20 06:00 lungs clear cvs s1s2 rr abd soft ext trace edema neuro a+ox3 CBC, BMP 02/08/20 05:44 02/08/20 05:44 Current Medications Generic Name Dose Route Start Last Admin Trade Name Freq PRN Reason Stop Dose Admin Amlodipine Besylate 10 mg 02/06/20 10:00 02/08/20 10:17 Norvasc - PO 10 mg DAILY MARY Administration Aspirin 81 mg 02/06/20 10:00 02/08/20 10:17 Asa - PO 81 mg DAILY MARY Administration Atorvastatin Calcium 40 mg 02/05/20 22:00 02/07/20 21:12 Lipitor - PO 40 mg HS MARY Administration Heparin Sodium (Porcine) 5,000 unit 02/07/20 15:45 02/08/20 06:30 Heparin - SQ 5,000 unit TID MARY Administration Meropenem 500 mg/ Dextrose 100 mls @ 200 mls/hr 02/05/20 21:00 02/08/20 08:25 IVPB 200 mls/hr Q12H MARY Administration Sodium Chloride 250 mls @ 3,000 mls/hr 02/06/20 15:40 Normal Saline - IV 02/07/20 15:40 PRN PRN Hypotension during Dialysis Insulin Aspart 1 vial 02/05/20 16:30 02/08/20 06:30 Novolog Vial Sliding Scale - SQ 2 units ACHS MARY Administration Protocol Insulin Detemir 40 units 02/06/20 07:00 02/08/20 06:30 Levemir Vial SQ 40 units 0700 MARY Administration Levothyroxine Sodium 25 mcg 02/06/20 07:00 02/08/20 06:30 Synthroid - PO 25 mcg DAILY@0700 MARY Administration Sevelamer Carbonate 800 mg 02/07/20 12:00 02/08/20 08:25 Renvela - PO 800 mg TIDCM MARY Administration IMPRESSION possible line sepsis, now better dm htn esrd morbid obesity plan will dialyze tomorrow he had pseudomonas sensitive to ceftaz and levaquin which can be given as outpatient if ID agrees add epogen during hd MV
[2020-02-08] MEDS ORDERED: SODIUM CHLORIDE 250 ML IV PRN (11:05)
[2020-02-08] MEDS ORDERED: EPOETIN ALFA-EPBX 3,000 UNIT/ML VIAL IVPUSH ONE (12:15)
--- NOTE | 2020-02-08 13:51 | PN ---
Teaching Attending Note Name of Resident: Larry Larry ATTENDING PHYSICIAN STATEMENT I saw and evaluated the patient. I reviewed the resident's note and discussed the case with the resident. I agree with the resident's findings and plan as documented. SUBJECTIVE: Patient has no complaints OBJECTIVE: Vital Signs Period Temp Pulse Resp BP Sys/Swartz Pulse Ox Last 24 Hr 98 F-98.6 F 78-91 16-20 125-177/47-94 95-99 GENERAL: Awake, alert, No distress. HEAD: Normal with no signs of trauma. EYES: Pupils equal, round and reactive to light, extraocular movements intact, sclera anicteric, conjunctiva clear. No lid lag. EARS, NOSE, THROAT: Ears normal, nares patent, oropharynx clear without exudates. Moist mucous membranes. NECK: Normal range of motion, No JVD LUNGS: Breath sounds equal, clear to auscultation bilaterally. No wheezes, and no crackles. No accessory muscle use. HEART: Regular rate and rhythm, normal S1 and S2 without murmur, rub or gallop. ABDOMEN: Soft, nontender, not distended, normoactive bowel sounds, no guarding, no rebound, no masses. No hepatomegaly or splenomegaly. MUSCULOSKELETAL: Normal range of motion at all joints. No bony deformities or tenderness. No CVA tenderness. LUE AV fistula noted; HD Cath noted on chest wall NEUROLOGICAL: Cranial nerves II-XII intact. Normal speech. PSYCHIATRIC: Cooperative. Good eye contact. Appropriate mood and affect. SKIN: Warm, dry, Skin graft doner and recipient noted, no signs of infection, ASSESSMENT AND PLAN: 54 y/o M with hx of ESRD on HD who presents with hypotension found to have gram negative bacteremia Gram Negative Bacteremia: HD catheter replaced, patient dialyzed yesterday Defer Antibiotic management to ID; ideally would administer 14 days of IV abx, however we may be able to pursue an IV/PO combination. Awaiting ID recs on further management BP Management as noted in Resident note Restart home medications as tolerated IDDM type 2 Continue ISS, FSG Levemir 40 units restart premeal lispro Rest of plan as per resident note; If indeed patient can do a hybrid course with PO/IV, he will complete day 7 of Meropenam tonight.
[2020-02-08] MEDS ORDERED: GENTAMICIN INJECTION 90 MG in DEXTROSE 5%-WATER - 250 ML IVPB SCH (17:15)
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
[2020-02-08] MEDS: ATORVASTATIN CA 40 MG TABLET (FP) PO SCH (21:28)
[2020-02-08] MEDS ORDERED: INSULIN LISPRO 30 UNIT SQ SCH (22:00)
[2020-02-08 22:06] LABS: HEP B CORE AB, TOT Negative (Negative)
--- NOTE | 2020-02-08 23:11 | PN ---
Progress Note, Physician History of Present Illness: AWAKE, ALERT SEEN ON DIALYSIS TEMPS DOWN AFEBRILE OFFERS NO COMPLAINTS REPEAT BC NO GROWTH - Current Medication List Current Medications: Active Medications Amlodipine Besylate (Norvasc -) 10 mg PO DAILY [facility] Last Admin: 02/08/20 10:17 Dose: 10 mg Documented by: Aspirin (Asa -) 81 mg PO DAILY [facility] Last Admin: 02/08/20 10:17 Dose: 81 mg Documented by: Atorvastatin Calcium (Lipitor -) 40 mg PO HS [facility] Last Admin: 02/08/20 21:28 Dose: 40 mg Documented by: Heparin Sodium (Porcine) (Heparin -) 5,000 unit SQ TID [facility] Last Admin: 02/08/20 21:30 Dose: 5,000 unit Documented by: Meropenem 500 mg/ Dextrose 100 mls @ 200 mls/hr IVPB Q12H [facility] Last Admin: 02/08/20 21:31 Dose: 200 mls/hr Documented by: Sodium Chloride (Normal Saline -) 250 mls @ 3,000 mls/hr IV PRN PRN PRN Reason: Hypotension during Dialysis Stop: 02/09/20 11:05 Gentamicin Sulfate 90 mg/ (Dextrose) 252.25 mls @ 250 mls/hr IVPB ONCE MARY Stop: 02/09/20 17:14 Last Admin: 02/08/20 19:59 Dose: 250 mls/hr Documented by: Insulin Aspart (Novolog Vial Sliding Scale -) 1 vial SQ ACHS [facility]; Protocol Last Admin: 02/08/20 21:31 Dose: 4 units Documented by: Insulin Detemir (Levemir Vial) 40 units SQ 0700 [facility] Last Admin: 02/08/20 06:30 Dose: 40 units Documented by: Levothyroxine Sodium (Synthroid -) 25 mcg PO DAILY@0700 [facility] Last Admin: 02/08/20 06:30 Dose: 25 mcg Documented by: Non-Formulary Medication (Insulin Lispro [Humalog Kwikpen U-100]) 30 units SQ TID [facility] Sevelamer Carbonate (Renvela -) 800 mg PO TIDCM [facility] Last Admin: 02/08/20 17:58 Dose: 800 mg Documented by: - Objective Vital Signs: Vital Signs Temperature 97.9 F 02/08/20 18:00 Pulse Rate 88 02/08/20 18:00 Respiratory Rate 18 02/08/20 18:00 Blood Pressure 128/73 02/08/20 18:00 O2 Sat by Pulse Oximetry (%) 98 02/08/20 20:04 Constitutional: Yes: No Distress Cardiovascular: Yes: Regular Rate and Rhythm, S1, S2 Respiratory: Yes: Regular, CTA Bilaterally Gastrointestinal: Yes: Normal Bowel Sounds, Soft Labs: CBC, BMP 02/08/20 05:44 02/08/20 05:44 INR, PTT INR 1.16 (0.83-1.09) H 02/01/20 15:35 Assessment/Plan GRAM NEGATIVE/POLYMICROBIAL BACTEREMIA ? CATHETER RELATED (REMOVED) ESRD CONTINUE MEROPENEM MAY SUBSTITUTE GENTAMICIN 90MG AT EACH HD + LEVAQUIN 250MG PO ON NON-DIALYSIS DAYS FOR ONE ADDITIONAL WEEK
[2020-02-09] MEDS: INSULIN SLIDING SCALE (NOVOLOG) 1 VIAL SQ SCH ×2 (06:02→11:49)
[2020-02-09] MEDS: INSULIN (LEVEMIR) 100 UNITS/ML UNITS SQ SCH (06:02)
[2020-02-09] MEDS: LEVOTHYROXINE NA 25 MCG TABLET (FP) PO SCH (06:02)
[2020-02-09] MEDS: HEPARIN NA (PORCINE) 5,000 UNITS/ML 1ML VIAL SQ SCH ×2 (06:02→13:45)
[2020-02-09 06:34] LABS: HEMATOCRIT 26.5 % (35.4-49); HEMOGLOBIN 8.7 GM/dL (11.7-16.9); MCHC 32.9 g/dl (32.0-35.9); MEAN CELL VOLUME 91.1 fl (80-96); MEAN PLT VOLUME 7.3 fl (7.5-11.1); PLATELET COUNT 253 K/MM3 (134-434); RDW 18.3 % (11.9-15.9); WHITE BLOOD COUNT 5.8 K/mm3 (4.0-10.0)
[2020-02-09 06:55] LABS: BLOOD UREA NITROGEN 36.6 mg/dL (7-18); CALCIUM 8.1 mg/dL (8.5-10.1); CREATININE 4.5 mg/dL (0.55-1.3); MAGNESIUM 1.8 mg/dL (1.8-2.4); PHOSPHOROUS 5.8 mg/dL (2.5-4.9)
--- NOTE | 2020-02-09 08:31 | PN ---
Progress Note, Physician History of Present Illness: Pt switched the abx to Gentamicin on dialysis days and was given a dose yesterday after dialysis Pt without complaints today He is comfortable lying flat in bed - Current Medication List Current Medications: Active Medications Amlodipine Besylate (Norvasc -) 10 mg PO DAILY [facility] Last Admin: 02/08/20 10:17 Dose: 10 mg Documented by: Aspirin (Asa -) 81 mg PO DAILY [facility] Last Admin: 02/08/20 10:17 Dose: 81 mg Documented by: Atorvastatin Calcium (Lipitor -) 40 mg PO HS [facility] Last Admin: 02/08/20 21:28 Dose: 40 mg Documented by: Heparin Sodium (Porcine) (Heparin -) 5,000 unit SQ TID [facility] Last Admin: 02/09/20 06:02 Dose: 5,000 unit Documented by: Meropenem 500 mg/ Dextrose 100 mls @ 200 mls/hr IVPB Q12H [facility] Last Admin: 02/08/20 21:31 Dose: 200 mls/hr Documented by: Sodium Chloride (Normal Saline -) 250 mls @ 3,000 mls/hr IV PRN PRN PRN Reason: Hypotension during Dialysis Stop: 02/09/20 11:05 Gentamicin Sulfate 90 mg/ (Dextrose) 252.25 mls @ 250 mls/hr IVPB ONCE [facility] Stop: 02/09/20 17:14 Last Admin: 02/08/20 19:59 Dose: 250 mls/hr Documented by: Insulin Aspart (Novolog Vial Sliding Scale -) 1 vial SQ ACHS [facility]; Protocol Last Admin: 02/09/20 06:02 Dose: 4 units Documented by: Insulin Detemir (Levemir Vial) 40 units SQ 0700 [facility] Last Admin: 02/09/20 06:02 Dose: 40 units Documented by: Levothyroxine Sodium (Synthroid -) 25 mcg PO DAILY@0700 [facility] Last Admin: 02/09/20 06:02 Dose: 25 mcg Documented by: Non-Formulary Medication (Insulin Lispro [Humalog Kwikpen U-100]) 30 units SQ TID [facility] Sevelamer Carbonate (Renvela -) 800 mg PO TIDCM [facility] Last Admin: 02/08/20 17:58 Dose: 800 mg Documented by: - Objective Vital Signs: Vital Signs Temperature 97.4 F L 02/09/20 06:00 Pulse Rate 90 02/09/20 06:00 Respiratory Rate 20 02/09/20 06:00 Blood Pressure 154/83 02/09/20 06:00 O2 Sat by Pulse Oximetry (%) 97 02/09/20 06:00 Constitutional: Yes: No Distress HENT: Yes: Other (No tenderness over the RIJ Perm Cath tunnel) Cardiovascular: Yes: S1, S2 Respiratory: Yes: CTA Bilaterally Gastrointestinal: Yes: Soft. No: Tenderness Extremities: Yes: Other (Brit over the AVF in the LUE) Edema: LLE: Trace, RLE: Trace Labs: CBC, BMP 02/09/20 05:25 02/09/20 05:25 INR, PTT INR 1.16 (0.83-1.09) H 02/01/20 15:35 Assessment/Plan IMPRESSION Bacteremia from suspected line sepsis, now better New Perm Cath placed several day ago DM HTN ESRD obesity plan Will need to arrange for outpatient Abx at the HD unit Will discuss with ID regarding the dosage and duration of the aminoglycoside For possible discharge Dr Cristina
[2020-02-09] MEDS ORDERED: DEXTROSE 5%-WATER 100 ML IVPB ONE (08:37)
[2020-02-09] MEDS ORDERED: MEROPENEM 500 MG VIAL (RESTRICTED TO ID) IVPB ONE (08:37)
[2020-02-09] MEDS: SEVELAMER CARBONATE 800 MG TAB (FP) PO SCH ×2 (08:46→11:48)
[2020-02-09] MEDS: MEROPENEM 500 MG in DEXTROSE 5%-WATER 100 ML IVPB SCH (08:46)
[2020-02-09] MEDS: amLODIPine BESYLATE 10 MG TABLET (FP) PO SCH (09:43)
[2020-02-09] MEDS: ASPIRIN 81 MG CHEWABLE TABLETS PO SCH (09:43)
[2020-02-09 10:09] VITALS: BP 161/74; PULSE 83; TEMP 98
--- NOTE | 2020-02-09 13:34 | DS ---
Physical Examination Vital Signs: Vital Signs Temperature 98 F 02/09/20 10:00 Pulse Rate 83 02/09/20 10:00 Respiratory Rate 20 02/09/20 10:00 Blood Pressure 161/74 02/09/20 10:00 O2 Sat by Pulse Oximetry (%) 98 02/09/20 10:00 Labs: CBC, BMP 02/09/20 05:25 02/09/20 05:25 Discharge Summary Problems reviewed: Yes Reason For Visit: SEPSIS,HYPOTENSION Current Active Problems Acute respiratory failure (Acute) Heart failure with preserved ejection fraction (Acute) Hypokalemia (Acute) Hypomagnesemia (Acute) Hypophosphatasia (Acute) Hypotension (Acute) Hypothyroidism (Acute) Morbid obesity with BMI of 40.0-44.9, adult (Acute) Sepsis (Acute) Hospital Course: 54 Year old male with a PMHx hypothyroidism, asthma, IDDM, HTN, HFpEF, portal HTN, COVID + (09/2019), ESRD (HD MWF 07/2019; oliguira) anemia of chronic disease, and chronic LLE ulcers (s/p debridement/graft 07/2019) presents with weakness & hypotension. Found to be septic 2/2 bacteremia due to psuedomonas. #sepsis 2/2 Bacteremia. -on admission, 101.4F, HR 101, RR 24, 91/50 MAP63, lactic acidosis 2.3>2.9 -maintain MAP >65. -source likely permacath. permacath removal on 02/02. hypotension/fevers resolved -1 blood cx, cx from [id number]: pseudomonas. shetty sensitive////1 blood cx shows serratia marcescens -repeat blood cx: NO GROWTH. Urine Cx: NO GROWTH -s/p 2 days of zosyn & vanc. s/p #7 days of Meropenem -discussed with ID and Nephro. will dc on levaquin 250 mg every other day starting today for one week. Patient will get gentamicin 90 mg during HD sessions for one week (MW). Pt was given one dose of 90 mg Gentamicin today. #ESRD on HD (MWF) -permacath inserted POD Day #4. -dialyzed as per renal -vascular consult appreciated. f/u in office 2 wks for duplex of avf #LUE AVF -Vascular consult appreciated. AVF needs another 2-4 wks for maturity #HTN -continue holding home diltiazem amlodipine 2/2 borderline normal BP in sepsis 2/2 bactermia -c/w norvasc #Chronic Anemia -2/2 ESRD. consider EPO #Suspected NGA -Pulmonary consult appreciated. sleep studies outpt #IDDM -BGM -ISS -home rx glargine 80 units. c/w levemir 40 units daily #HFpEF -BNP 9200. On admission from 11/27/2017, BNP was 2169.85. BNP uptrending -Lasix were held for hypotension 2/2 Sepsis #hypothyroidism: -continue home Synthroid 25 mcg PO Daily #HLD: continue home atorvastatin & ASA 81 mg daily #DVT Prophylaxsis Home Eliquis was stopped. Eliquis originally given for COVID. now on heparin 5000 TID sq Condition: Improved - Instructions Diet, Activity, Other Instructions: Your Visit: You were admitted to the hospital for fever and low blood pressure. You were found to have bacteria in your blood, possibly from your Permacath. A new on was inserted in its place. You were also given IV antibiotics to help clear the infection. You are stable enough to be sent home with antibiotics, but you will need to follow up with your doctors closely. You were screened for sleep problems given your BMI, and it is recommended that you follow up for a formal sleep study as you may have sleep apnea. Medications: Please STOP taking your home medication Eliquis. Please START taking the antibiotic Levofloxacin (Levaquin) 250 mg once a day on the following days: -02/09/2020 -02/11/2020 -02/13/2020 -02/15/2020 We discussed with your ingredient handler Dr. Castle. You will be given the antibiotic 90 mg of gentamicin during your dialysis sessions. Please take your other home medications as prescribed. Follow Up: Dr. Castle, neprology, in 1 week to check your Permacath and labwork. Dr. Kaufman, pulmonology, within a month of discharge. He will determine if you need a formal sleep study. Dr. Kitchen, vascular surgery, in 2 weeks, to ultrasound your fistula to see if it's mature enough for use in dialysis. Dr. Rubio, infectious disease, in 2 weeks, to make sure your blood infection is cleared. Please see your Primary Care Physician to adjust your insulin dosage and for general health maintenance. Other Instructions: Call 911 or return to the emergency room if you experience chest pain, shortness of breath, feeling weak or lightheaded, fever above 101, vomiting, or if your blood pressure is low. Be sure when you sit up from lying down, or when you stand up, that you do so slowly. This will help prevent your blood pressure from dropping too quickly, causing you to pass out or feel lightheaded. Referrals: Payam Rubio MD [Staff Physician] - Kade Kaufman MD [Staff Physician] - Thomas Kitchen DO [Staff Physician] - August Castle MD [Primary Care Provider] - Disposition: HOME - Home Medications Comprehensive Discharge Medication List: Ambulatory Orders Atorvastatin Ca [Lipitor] 40 mg PO DAILY #30 tablet 10/12/19 Diltiazem Cd [Cardizem Cd -] 240 mg PO DAILY #30 cap.sr 10/12/19 Levothyroxine [Synthroid -] 25 mcg PO DAILY@0700 #30 tablet 10/12/19 Aspirin 81 mg PO DAILY 12/11/19 Oxycodone HCl/Acetaminophen [Percocet 5-325 mg Tablet] 10 mg PO PRN PRN 12/11/19 Amlodipine Besylate [Norvasc -] 10 mg PO DAILY 01/28/20 Calcium Acetate [Phoslo -] 1,334 mg PO TIDCM 01/28/20 Furosemide [Lasix] 80 mg PO BID 01/28/20 Insulin Glargine,Hum.rec.anlog [Basaglar Kwikpen U-100] 80 units SQ DAILY 01/28/20 Insulin Lispro [Humalog Kwikpen U-100] 30 units SQ TID 01/28/20 Sevelamer Carbonate [Renvela -] 800 mg PO TID 01/28/20 Sodium Bicarbonate - 2 tab PO TID 01/28/20 Tizanidine HCl 2 mg PO TID 01/28/20 levoFLOXacin [Levaquin -] 250 mg PO Q2D #4 tablet 02/08/20 This patient is new to me today: Yes Date on this admission: 02/09/20 Emergency Visit: Yes ED Registration Date: 02/01/20 Care time: The patient presented to the Emergency Department on the above date and was hospitalized for further evaluation of their emergent condition. Critical Care patient: No - Discharge Referral Referred to [facility] Med P.C.: No
--- NOTE | 2020-02-12 15:59 | OP ---
DATE OF OPERATION: 02/05/2020 PREOPERATIVE DIAGNOSIS: End-stage renal disease. POSTOPERATIVE DIAGNOSIS: End-stage renal disease. PROCEDURE: Insertion of PermCath. SURGEON: Thomas Gomez DO ANESTHESIA: Fractional. BLOOD LOSS: 10 mL INDICATIONS: Patient is a 54-year-old male that comes in with an infected PermCath that was removed. He is now blood culture negative, free and needs and new PermCath. Patient was consented for the procedure understanding all risks, benefits and alternatives and was then taken to the operating room. DESCRIPTION OF PROCEDURE: Once in the operating room, he was laid on the operating table in the supine manner and the area of the right neck and chest was prepped and draped in a sterile surgical manner. We then went ahead and under ultrasound guidance we visualized the right internal jugular vein and 10 mL of lidocaine 1% were injected there. We then took our micropuncture needle and punctured the right internal jugular vein. Micropuncture wire was inserted. Micropuncture sheath was inserted and a 0.035 floppy guidewire was inserted under fluoroscopy. We then injected 10 mL of lidocaine 1% above and below the clavicle. We then took a No. 11 blade and went ahead and made an incision at the puncture site. We then took a No. 15 blade we made an incision below the clavicle. We then tunneled the PermCath up to the puncture site. We then placed our breakaway sheath over the guidewire into the vein under fluoroscopy. Inner cannula and guidewire were removed. Catheter was placed inside the sheath. Sheath was broken away as the catheter was placed inside the vein. Neck of the catheter was nice and smooth. Tip of the catheter was located outside the right atrium. We then yassine back on each port of the catheter and there was good flow. Heparinized saline was injected and 2000 units of IV heparin were injected. We then used 4-0 Biosyn and 2 simple sutures were placed at the puncture site. Nylon 3-0 used and the catheter was attached to the skin. BIOPATCH, Steri-Strips, 4 x 4, Tegaderms were placed. Patient tolerated the procedure with no complications. Patient was transferred to the PACU in stable condition where a chest x-ray will be ordered. THOMAS GOMEZ DO [facility] JOB TITLES/[id number]
== END 2020-02-09 15:00 | disposition home or self-care (01) | DRG 721 ==
LOC: JER 11:02 → JERBED 14:08 → J4S 19:01
PROVIDERS: ADMIT Internal Medicine; ATTEND Internal Medicine
PROC: 0JPT3XZ Removal of Tunneled Vascular Access Device from Trunk Subcutaneous Tissue and Fascia, Percutaneous Approach (ICD-10-PCS; 2020-02-03)
PROC: 0JH63XZ Insertion of Tunneled Vascular Access Device into Chest Subcutaneous Tissue and Fascia, Percutaneous Approach (ICD-10-PCS; 2020-02-05)
PROC: 05HM33Z Insertion of Infusion Device into Right Internal Jugular Vein, Percutaneous Approach (ICD-10-PCS; 2020-02-05)
PROC: B513ZZA Fluoroscopy of Right Jugular Veins, Guidance (ICD-10-PCS; 2020-02-05)
PROC: 5A1D70Z Performance of Urinary Filtration, Intermittent, Less than 6 Hours Per Day (ICD-10-PCS; principal; 2020-02-06)
PROC: 5A1D70Z Performance of Urinary Filtration, Intermittent, Less than 6 Hours Per Day (ICD-10-PCS; 2020-02-08)
DX: T80.211A Bloodstream infection due to central venous catheter, initial encounter (principal); A41.52 Sepsis due to Pseudomonas; E03.9 Hypothyroidism, unspecified; K76.6 Portal hypertension; E87.2 Acidosis; R50.9 Fever, unspecified; E11.622 Type 2 diabetes mellitus with other skin ulcer; L97.929 Non-pressure chronic ulcer of unspecified part of left lower leg with unspecified severity; E83.42 Hypomagnesemia; E87.6 Hypokalemia; D63.1 Anemia in chronic kidney disease; E83.39 Other disorders of phosphorus metabolism; J96.01 Acute respiratory failure with hypoxia; I13.2 Hypertensive heart and chronic kidney disease with heart failure and with stage 5 chronic kidney disease, or end stage renal disease; E11.22 Type 2 diabetes mellitus with diabetic chronic kidney disease; N18.6 End stage renal disease; I50.32 Chronic diastolic (congestive) heart failure; E11.65 Type 2 diabetes mellitus with hyperglycemia; G47.30 Sleep apnea, unspecified; E11.40 Type 2 diabetes mellitus with diabetic neuropathy, unspecified; E11.610 Type 2 diabetes mellitus with diabetic neuropathic arthropathy; D63.8 Anemia in other chronic diseases classified elsewhere; E66.01 Morbid (severe) obesity due to excess calories; Z68.41 Body mass index [BMI] 40.0-44.9, adult; Z99.2 Dependence on renal dialysis
CPT/HCPCS: 36415; 71045-TC-FY; 76000-TC-FY; 80048; 80053; 82550; 82962; 83605; 83735; 83880; 84100; 84484; 85025; 85027; 85610; 86704; 86706; 86707; 86708; 86709; 86803; 87040; 87086; 87186; 87340; 93005; 93010; 93306-TC; 94760; 99285-25; J0131; J1644; Q5106; U0003

== ENCOUNTER 2020-02-20 10:41 | Inpatient (IN) | payer OTHER ==
--- NOTE | 2020-02-20 12:22 | PDOC ---
Documentation entered by Abeba Braga SCRIBE, acting as scribe for Joshua Cheng MD. Joshua Cheng MD: This documentation has been prepared by the lorrieibOmi lance Ana, SCRIBE, under my direction and personally reviewed by me in its entirety. I confirm that the documentation accurately reflects all work, treatment, procedures, and medical decision making performed by me. History of Present Illness - General Chief Complaint: Dialysis Shunt Problem Stated Complaint: DISCOMFORT Time Seen by Provider: 02/20/20 11:54 History Source: Patient Exam Limitations: No Limitations - History of Present Illness Initial Comments: 02/20/20 11:56 Patient is a 54 year old male with a significant past medical history of hypertension, morbid obesity, diabetes, ESRD (MWF), asthma, hypothyroidism, anemia of chronic disease, HFpEF, and chronic nonhealing diabetic LLE wound ([facility] wound care), who presents to the ED with a malfunctioning dialysis port. Patient stated he was in the middle of getting his scheduled dialysis treatment this morning when they unplugged him so he could use the bathroom. When he returned, they were unable to re-access his port. Patient was supposed to have dialysis for 4 hours but was only able to receive 3 hours. Patient reports that he had his port replaced about 2 weeks ago because the old one became infected. Has immature LUE AVF that was placed 6 weeks ago. Patient denies: any other related symptoms. Allergies: NKDA Past History - Medical History Allergies/Adverse Reactions: Allergies Allergy/AdvReac Type Severity Reaction Status Date / Time No Known Allergies Allergy Verified 12/26/19 16:42 Home Medications: Ambulatory Orders Atorvastatin Ca [Lipitor] 40 mg PO DAILY #30 tablet 10/12/19 Diltiazem Cd [Cardizem Cd -] 240 mg PO DAILY #30 cap.sr 10/12/19 Levothyroxine [Synthroid -] 25 mcg PO DAILY@0700 #30 tablet 10/12/19 Aspirin 81 mg PO DAILY 12/11/19 Amlodipine Besylate [Norvasc -] 10 mg PO DAILY 01/28/20 Calcium Acetate [Phoslo -] 1,334 mg PO TIDCM 01/28/20 Insulin Glargine,Hum.rec.anlog [Wyattaglpraveen Quintana U-100] 80 units SQ DAILY 01/28/20 Insulin Lispro [Humalog Kwikpen U-100] 30 units SQ TID 01/28/20 Sevelamer Carbonate [Renvela -] 800 mg PO TID 01/28/20 Sodium Bicarbonate - 2 tab PO TID 01/28/20 Anemia: Yes Asthma: Yes Cancer: No Cardiac Disorders: No CVA: No COPD: No CHF: Yes (HFpEF) Dementia: No Diabetes: Yes (iddm, diabetic neuropathy) Dialysis: Yes (mon/tue/fri) GI Disorders: No Disorders: Yes (oliguria) HTN: Yes Hypercholesterolemia: Yes Kidney Stones: Yes Liver Disease: (portal HTN) Seizures: No Thyroid Disease: Yes (hypothyroidism) - Surgical History Abdominal Surgery: No Appendectomy: No Cardiac Surgery: No Cholecystectomy: No Lung Surgery: No Neurologic Surgery: No Orthopedic Surgery: Yes (right knee) - Immunization History Immunization Up to Date: No - Psycho-Social/Smoking History Smoking Status: No Smoking History: Never smoked Have you smoked in the past 12 months: No Number of Cigarettes Smoked Daily: 0 Cigars Per Day: 0 Information on smoking cessation initiated: No - Substance Abuse Hx (Audit-C & DAST Scrn) How often the patient has a drink containing alcohol: Never Score: In Men: 4 or > Positive; In Women: 3 or > Positive: 0 Screen Result (Pos requires Nsg. Audit-10AR): Negative Review of Systems - Review of Systems Able to Perform ROS?: Yes Comments:: 02/20/20 11:57 GENERAL/CONSTITUTIONAL: No fever or chills. No weakness. HEAD, EYES, EARS, NOSE AND THROAT: No change in vision. No ear pain or discharge. No sore throat. CARDIOVASCULAR: No chest pain, no shortness of breath, no loss of consciousness RESPIRATORY: No cough, wheezing, or hemoptysis. GASTROINTESTINAL: No nausea, vomiting, diarrhea or constipation. GENITOURINARY: No dysuria, frequency, or change in urination. MUSCULOSKELETAL: No joint or muscle swelling or pain. No neck or back pain. SKIN: No rash NEUROLOGIC: No vertigo, no change in strength/sensation. ENDOCRINE: No increased thirst. No abnormal weight change. HEMATOLOGIC/LYMPHATIC: No anemia, easy bleeding, or history of blood clots. ALLERGIC/IMMUNOLOGIC: No hives or skin allergy. *Physical Exam - Vital Signs Last Vital Signs Temp Pulse Resp BP Pulse Ox 98.7 F 99 H 15 116/62 100 02/20/20 11:00 02/20/20 11:00 02/20/20 11:00 02/20/20 11:00 02/20/20 11:00 - Physical Exam 02/20/20 11:57 GENERAL: Awake, alert, and fully oriented, in no acute distress. HEAD: No signs of trauma EYES: PERRLA, EOMI, sclera anicteric, conjunctiva clear ENT: Auricles normal inspection, hearing grossly normal, nares patent, oropharynx clear without exudates. Moist mucosa NECK: Nontender, no stepoffs, Normal ROM, supple, no lymphadenopathy, JVD, or masses LUNGS: Breath sounds equal, clear to auscultation bilaterally. No wheezes, and no crackles HEART: Regular rate and rhythm, normal S1 and S2, no murmurs, rubs or gallops ABDOMEN: Soft, nontender, normoactive bowel sounds. No guarding, no rebound. No masses EXTREMITIES: +LUE AVF, Normal range of motion, no edema. No clubbing or cyanosis. No cords, erythema, or tenderness NEUROLOGICAL: Cranial nerves II through XII intact. 5/5 strength and sensation in all extremities, Normal speech, normal gait, normal cerebellar function SKIN: Warm, Dry, normal turgor, no rashes or lesions noted. ED Treatment Course - LABORATORY CBC & Chemistry Diagram: 02/20/20 12:30 02/20/20 12:30 Medical Decision Making - Medical Decision Making 02/20/20 12:24 54 M with malfunctioning dialysis port. Completed 3 hours of HD today. Mary Alice woodson in ED. - Labs - Vascular consult Dr. Kitchen 02/20/20 16:20 Labs unremarkable Pt admitted to Dr. Long Case discussed with Dr. Castle Discharge - Discharge Information Problems reviewed: Yes Clinical Impression/Diagnosis: Dialysis catheter clot or failure - Admission Yes - Follow up/Referral - Patient Discharge Instructions - Post Discharge Activity
[2020-02-20 12:56] LABS: BASO % 0.8 % (0-2.0); EOS % 6.8 % (0-4.5); HEMATOCRIT 27.3 % (35.4-49); LYMPH % 24.3 % (8-40); MCH 30.3 pg (25.7-33.7); MEAN CELL VOLUME 91.9 fl (80-96); MEAN PLT VOLUME 7.2 fl (7.5-11.1); MONO % 10.5 % (3.8-10.2); NEUT % 57.6 % (42.8-82.8); PLATELET COUNT 184 K/MM3 (134-434); RBC 2.97 M/mm3 (4.00-5.60); RDW 16.9 % (11.9-15.9); WHITE BLOOD COUNT 6.5 K/mm3 (4.0-10.0)
[2020-02-20 13:05] LABS: INR 1.05 (0.83-1.09); PROTHROMBIN TIME (PATIENT) 12.4 SEC (9.7-13.0)
[2020-02-20 13:07] LABS: ACTIVATED PTT 36.5 SECONDS (25.2-36.5)
[2020-02-20 13:30] LABS: POTASSIUM 4.6 mmol/L (3.5-5.1)
[2020-02-20 14:26] LABS: BILIRUBIN,TOTAL 0.3 mg/dL (0.2-1); BLOOD UREA NITROGEN 31.8 mg/dL (7-18); CALCIUM 8.5 mg/dL (8.5-10.1); CREATININE 4.9 mg/dL (0.55-1.3); TOT PROT 7.5 g/dl (6.4-8.2)
[2020-02-20] MEDS: HEPARIN NA (PORCINE) 5,000 UNITS/ML 1ML VIAL SQ SCH (21:28)
[2020-02-21] MEDS ORDERED: LEVOTHYROXINE NA 25 MCG TABLET (FP) PO SCH (07:00)
[2020-02-21 08:14] LABS: BASO % 0.8 % (0-2.0); EOS % 7.9 % (0-4.5); HEMATOCRIT 28.5 % (35.4-49); HEMOGLOBIN 9.5 GM/dL (11.7-16.9); MCH 30.6 pg (25.7-33.7); MCHC 33.3 g/dl (32.0-35.9); MEAN CELL VOLUME 91.8 fl (80-96); MEAN PLT VOLUME 7.4 fl (7.5-11.1); MONO % 10.7 % (3.8-10.2); NEUT % 55.6 % (42.8-82.8); PLATELET COUNT 180 K/MM3 (134-434); RDW 17.1 % (11.9-15.9); WHITE BLOOD COUNT 6.7 K/mm3 (4.0-10.0)
--- NOTE | 2020-02-21 08:33 | CONSULT ---
- Consultation REQUESTING PROVIDER: Thomas Kitchen - Vascular Surgery CONSULT REQUEST: We have been asked to surgically evaluate this patient for malfunctioning Permacatheter Hospitalist: Ritika Long HPI: Called to eval 54 yo male with PMHx of ESRD on HD via PC. Patient well known to Vascular Service as we were consulted 02/03/20 to remove Permacath secondary to + blood cultures. After negative cultures times 2, a new PC was inserted into right chest wall 02/05/2020 (Imtiaz). Presents to [facility] ED from HD center due to malfunctioning catheter. Patient states he was 3 hours into what typically is a 4 hour session..."unplugged" him from machine so he could go to the bathroom. When he came back the HD RN said his catheter stopped working. He has a LUE AVF that was placed 6 weeks ago but haven't used yet due to immaturity. Last Vital Signs Temp Pulse Resp BP Pulse Ox 98.6 F 85 20 136/76 96 02/21/20 06:00 02/21/20 06:00 02/21/20 06:00 02/21/20 06:00 02/21/20 06:00 CBC 02/21/20 07:37 INR, PTT INR 1.05 (0.83-1.09) 02/20/20 12:30 Blood Type Blood Type O POSITIVE 02/20/20 12:30 Serology Test 02/20/20 15:00 COVID-19 (AV) Pending PE GEN: alert. nad Chest Wall: PC inplace. No signs of infection. Under sterile technique, PC prepped and draped, ports cleansed with betadine, each port aspirates/flushes without resistance. New sterile occlusive dressing applied. Problem List - Problems (1) Hemodialysis catheter malfunction Assessment/Plan: -HD today via PC -f/u LUE AVF (eval to see if ready for future use). If deemed mature will plan on using during his next scheduled session. -If able to utilize PC today can be discharged home Above plan discussed with Dr. Kitchen and agrees. Code(s): T82.41XA - BREAKDOWN (MECHANICAL) OF VASCULAR DIALYSIS CATHETER, INIT Visit type - Case Type Case Type: ED Admission - Emergency Emergency Visit: Yes ED Registration Date: 02/20/20 Care time: The patient presented to the Emergency Department on the above date and was hospitalized for further evaluation of their emergent condition. - New patient This patient is new to me today: Yes Date on this admission: 02/21/20
--- NOTE | 2020-02-21 08:47 | HP ---
Admitting History and Physical - Admission History of Present Illness: 54 year old male with a significant past medical history of hypertension, morbid obesity, diabetes, ESRD (MWF), asthma, hypothyroidism, anemia of chronic disease, HFpEF, and chronic nonhealing diabetic LLE wound (daily wound care), who presents to the ED with a malfunctioning dialysis port. Patient stated he was in the middle of getting his scheduled dialysis treatment this morning when they unplugged him so he could use the bathroom. When he returned, they were unable to re-access his port. Patient was supposed to have dialysis for 4 hours but was only able to receive 3 hours. Patient reports that he had his port replaced about 2 weeks ago because the old one became infected. Has immature LUE AVF that was placed 6 weeks ago. - Past Medical History Cardiovascular: Yes: HTN, Hyperlipdemia Pulmonary: Yes: Asthma, Sleep Apnea (is suspected but has not had formal studies), Other (chronic cough (nonproductive) x1 year) Gastrointestinal: Yes: Other (obesity) Renal/: Yes: Renal Failure, Renal Inusuff, Other Heme/Onc: Yes: Anemia Infectious Disease: Yes: MRSA (right buttock abscess several years ago), Other (osteomyelitis left foot, group a strep sepsis with bacteremia and soft tissue infection) Endocrine: Yes: Diabetes Mellitus (with neuropathyu and left Charcot foot), Other (morbid obesity) Dermatology: Yes: Cellulitis (lower extremities) - Smoking History Smoking history: Never smoked Have you smoked in the past 12 months: No Aproximately how many cigarettes per day: 0 - Alcohol/Substance Use Hx Alcohol Use: Yes (rare, none for 2 months) History of Substance Use: reports: None - Social History ADL: 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 History of Recent Travel: No Home Medications - Allergies Allergies/Adverse Reactions: Allergies Allergy/AdvReac Type Severity Reaction Status Date / Time No Known Allergies Allergy Verified 12/26/19 16:42 - Home Medications Home Medications: Ambulatory Orders Atorvastatin Ca [Lipitor] 40 mg PO DAILY #30 tablet 10/12/19 Diltiazem Cd [Cardizem Cd -] 240 mg PO DAILY #30 cap.sr 10/12/19 Levothyroxine [Synthroid -] 25 mcg PO DAILY@0700 #30 tablet 10/12/19 Aspirin 81 mg PO DAILY 12/11/19 Amlodipine Besylate [Norvasc -] 10 mg PO DAILY 01/28/20 Calcium Acetate [Phoslo -] 1,334 mg PO TIDCM 01/28/20 Insulin Glargine,Hum.rec.anlog [Basaglar Kwikpen U-100] 80 units SQ DAILY 01/28/20 Insulin Lispro [Humalog Kwikpen U-100] 30 units SQ TID 01/28/20 Sevelamer Carbonate [Renvela -] 800 mg PO TID 01/28/20 Sodium Bicarbonate - 2 tab PO TID 01/28/20 Family Medical History Family Hx Diabetes: Mother Family Hx Gastrointestinal Disorder: Mother (colon polyps) Review of Systems - Review of Systems Cardiovascular: reports: No Symptoms Respiratory: reports: No Symptoms Gastrointestinal: reports: No Symptoms Physical Examination Vital Signs: Vital Signs Temperature 98.6 F 02/21/20 06:00 Pulse Rate 85 02/21/20 06:00 Respiratory Rate 20 02/21/20 06:00 Blood Pressure 136/76 02/21/20 06:00 O2 Sat by Pulse Oximetry (%) 96 02/21/20 06:00 Cardiovascular: Yes: Regular Rate and Rhythm Respiratory: Yes: Regular, CTA Bilaterally Gastrointestinal: Yes: Normal Bowel Sounds, Soft Extremities: Yes: Other (+ bruit and thrill over fistula) Labs: CBC, BMP 02/21/20 07:37 Problem List - Problems (1) Dialysis catheter clot or failure Assessment/Plan: surgical consult appreciated Code(s): BOX3889 - (2) CHF (congestive heart failure) Assessment/Plan: stable no signs of failure Code(s): I50.9 - HEART FAILURE, UNSPECIFIED Qualifiers: Heart failure type: unspecified Heart failure chronicity: chronic Qualified Code(s): I50.9 - Heart failure, unspecified (3) ESRD (end stage renal disease) Assessment/Plan: per renal Code(s): N18.6 - END STAGE RENAL DISEASE (4) HTN (hypertension) Assessment/Plan: same meds Vital Signs Period Temp Pulse Resp BP Sys/Swartz Pulse Ox Last 24 Hr 98.5 F-98.7 F 80-99 15-20 108-136/62-76 96-100 Code(s): I10 - ESSENTIAL (PRIMARY) HYPERTENSION Qualifiers: Hypertension type: essential hypertension Qualified Code(s): I10 - Essential (primary) hypertension
[2020-02-21] MEDS: CALCIUM ACETATE 667 MG CAPSULE (FP) PO SCH ×3 (08:53→17:35)
[2020-02-21] MEDS: SEVELAMER CARBONATE 800 MG TAB (FP) PO SCH ×3 (08:54→17:35)
[2020-02-21 09:14] LABS: ALBUMIN 2.7 g/dl (3.4-5.0); BILIRUBIN,TOTAL 0.4 mg/dL (0.2-1); BLOOD UREA NITROGEN 45.4 mg/dL (7-18); CALCIUM 8.5 mg/dL (8.5-10.1); CREATININE 6.5 mg/dL (0.55-1.3); MAGNESIUM 1.8 mg/dL (1.8-2.4); PHOSPHOROUS 7.8 mg/dL (2.5-4.9); POTASSIUM 5.5 mmol/L (3.5-5.1)
[2020-02-21] MEDS ORDERED: INSULIN (LEVEMIR) 100 UNITS/ML UNITS SQ SCH (09:15)
[2020-02-21] MEDS ORDERED: PT OWN MED DRAWER 7, Y5N ONE (09:26)
[2020-02-21] MEDS: HEPARIN NA (PORCINE) 5,000 UNITS/ML 1ML VIAL SQ SCH (09:39)
[2020-02-21] MEDS ORDERED: amLODIPine BESYLATE 10 MG TABLET (FP) PO SCH (10:00)
[2020-02-21] MEDS ORDERED: PATIENT'S OWN MEDICATION (NON-FORMULARY) (Insulin Glargine,Hum.Rec.Anlog [Basaglar Kwikpen SQ SCH (10:00)
[2020-02-21] MEDS ORDERED: ASPIRIN 81 MG CHEWABLE TABLETS PO SCH (10:00)
[2020-02-21] MEDS ORDERED: INSULIN (LEVEMIR) 100 UNITS/ML UNITS SQ ONE (10:19)
--- NOTE | 2020-02-21 10:36 | CON.NEP ---
Consult Consult Specialty:: nephrology - History of Present Illness Chief Complaint: clotted access History of Present Illness: Patient is a 54 year old male with a significant past medical history of hypertension, morbid obesity, diabetes, ESRD (MWF), asthma, hypothyroidism, anem ia of chronic disease, HFpEF, and chronic nonhealing diabetic LLE wound (daily wound care), who presents to the ED with a malfunctioning dialysis port. Patient stated he was in the middle of getting his scheduled dialysis treatment this morning when they unplugged him so he could use the bathroom. When he returned, they were unable to re-access his port. Patient was supposed to have dialysis for 4 hours but was only able to receive 3 hours. Patient reports that he had his port replaced about 2 weeks ago because the old one became infected. Has immature LUE AVF that was placed 6 weeks ago. Pt feels well. He was bleeding from exit site of catheter and did not get heparin which may have contributed to his cath clotting - History Source History Provided By: Patient Limitations to Obtaining History: No Limitations - Past Medical History Cardio/Vascular: Yes: HTN, Hyperlipdemia Pulmonary: Yes: Asthma, Sleep Apnea (is suspected but has not had formal studies), Other (chronic cough (nonproductive) x1 year) Gastrointestinal: Yes: Other (obesity) Renal/: Yes: Renal Failure, Renal Inusuff, Other Infectious Disease: Yes: MRSA (right buttock abscess several years ago), Other (osteomyelitis left foot, group a strep sepsis with bacteremia and soft tissue infection) Endocrine: Yes: Diabetes Mellitus (with neuropathyu and left Charcot foot), Other (morbid obesity) Dermatology: Yes: Cellulitis (lower extremities) - Alcohol/Substance Use Hx Alcohol Use: Yes (rare, none for 2 months) History of Substance Use: reports: None - Smoking History Smoking history: Never smoked Have you smoked in the past 12 months: No Aproximately how many cigarettes per day: 0 - Social History Usual Living Arrangement: With Child ADL: 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 History of Recent Travel: No Home Medications - Allergies Allergies/Adverse Reactions: Allergies Allergy/AdvReac Type Severity Reaction Status Date / Time No Known Allergies Allergy Verified 12/26/19 16:42 - Home Medications Home Medications: Ambulatory Orders Atorvastatin Ca [Lipitor] 40 mg PO DAILY #30 tablet 10/12/19 Diltiazem Cd [Cardizem Cd -] 240 mg PO DAILY #30 cap.sr 10/12/19 Levothyroxine [Synthroid -] 25 mcg PO DAILY@0700 #30 tablet 10/12/19 Aspirin 81 mg PO DAILY 12/11/19 Amlodipine Besylate [Norvasc -] 10 mg PO DAILY 01/28/20 Calcium Acetate [Phoslo -] 1,334 mg PO TIDCM 01/28/20 Insulin Glargine,Hum.rec.anlog [Basaglar Kwikpen U-100] 80 units SQ DAILY 01/28/20 Insulin Lispro [Humalog Kwikpen U-100] 30 units SQ TID 01/28/20 Sevelamer Carbonate [Renvela -] 800 mg PO TID 01/28/20 Sodium Bicarbonate - 2 tab PO TID 01/28/20 Family Medical History Family Hx Diabetes: Mother Family Hx Gastrointestinal Disorder: Mother (colon polyps) Review of Systems - Review of Systems Constitutional: reports: No Symptoms Eyes: reports: No Symptoms HENT: reports: No Symptoms Neck: reports: No Symptoms Cardiovascular: reports: No Symptoms Respiratory: reports: No Symptoms Gastrointestinal: reports: No Symptoms Genitourinary: reports: No Symptoms Breasts: reports: No Symptoms Reported Musculoskeletal: reports: No Symptoms Integumentary: reports: No Symptoms Neurological: reports: No Symptoms Endocrine: reports: No Symptoms Hematology/Lymphatic: reports: No Symptoms Psychiatric: reports: No Symptoms Nephrology Consult - Height Height: 6 ft - Weight Weight: 298 lb - BMI Body Mass Index (BMI): 40.4 - Lab Results CBC,BMP: CBC, BMP 02/21/20 07:37 02/21/20 07:37 Anion Gap: Anion Gap Anion Gap 10 MMOL/L (8-16) 02/21/20 07:37 - Physical Examination Vital Signs: Vital Signs Temperature 98.6 F 02/21/20 06:00 Pulse Rate 85 02/21/20 06:00 Respiratory Rate 20 02/21/20 06:00 Blood Pressure 136/76 02/21/20 06:00 O2 Sat by Pulse Oximetry (%) 96 02/21/20 06:00 Constitutional: Yes: Well Nourished Eyes: Yes: Conjunctiva Clear, EOM Intact HENT: Yes: Atraumatic, Normocephalic Neck: Yes: Supple, Trachea Midline Cardiovascular: Yes: Regular Rate and Rhythm Respiratory: Yes: Regular, CTA Bilaterally Gastrointestinal: Yes: Normal Bowel Sounds Renal/: Yes: WNL Access for Hemodialysis: Permacath Musculoskeletal: Yes: WNL Extremities: Yes: WNL, Other (has avf with good thrill and bruit) Integumentary: Yes: WNL Wound/Incision: Yes: Well Approximated Neurological: Yes: Alert, Oriented Psychiatric: Yes: Alert, Oriented Assessment/Plan IMPRESSION stable patient with poorly functioning permcath possibly from lack of heparin but who also happens to have a fistula which was created on 12/28/2019 and may be able to work PLAN will try to use catheter today and can discharge if it works need to evaluate fistula as it maybe able to be used now MV
[2020-02-21 10:37] VITALS: BMI 40.4
[2020-02-21] MEDS ORDERED: SODIUM CHLORIDE 250 ML IV PRN (12:02)
[2020-02-21] MEDS: INSULIN SLIDING SCALE (NOVOLOG) 1 VIAL SQ SCH ×2 (15:50→17:28)
[2020-02-21 16:14] VITALS: BP 131/77; PULSE 89; TEMP 98.1
--- NOTE | 2020-02-21 18:04 | DS ---
Physical Examination Vital Signs: Vital Signs Temperature 98.1 F 02/21/20 15:20 Pulse Rate 89 02/21/20 15:25 Respiratory Rate 20 02/21/20 15:25 Blood Pressure 131/77 02/21/20 15:25 O2 Sat by Pulse Oximetry (%) 97 02/21/20 14:00 Labs: CBC, BMP 02/21/20 07:37 02/21/20 07:37 Discharge Summary Problems reviewed: Yes Reason For Visit: SHUNT MALFUNCTION Current Active Problems Dialysis catheter clot or failure (Acute) Hemodialysis catheter malfunction (Acute) - Instructions Referrals: Riki Lee [Primary Care Provider] - 1 Week August Castle MD [Staff Physician] - - Home Medications Comprehensive Discharge Medication List: Ambulatory Orders Atorvastatin Ca [Lipitor] 40 mg PO DAILY #30 tablet 10/12/19 Diltiazem Cd [Cardizem Cd -] 240 mg PO DAILY #30 cap.sr 10/12/19 Levothyroxine [Synthroid -] 25 mcg PO DAILY@0700 #30 tablet 10/12/19 Aspirin 81 mg PO DAILY 12/11/19 Amlodipine Besylate [Norvasc -] 10 mg PO DAILY 01/28/20 Calcium Acetate [Phoslo -] 1,334 mg PO TIDCM 01/28/20 Insulin Glargine,Hum.rec.anlog [Basaglar Kwikpen U-100] 80 units SQ DAILY 01/28/20 Insulin Lispro [Humalog Kwikpen U-100] 30 units SQ TID 01/28/20 Sevelamer Carbonate [Renvela -] 800 mg PO TID 01/28/20 Sodium Bicarbonate - 2 tab PO TID 01/28/20
[2020-02-21] MEDS ORDERED: ATORVASTATIN CA 40 MG TABLET (FP) PO SCH (22:00)
== END 2020-02-21 18:27 | disposition home or self-care (01) | DRG 466 ==
LOC: JER 10:41 → JERBED 17:13 → J8W 20:10
PROVIDERS: ADMIT Family Medicine; ATTEND Family Medicine
PROC: 5A1D70Z Performance of Urinary Filtration, Intermittent, Less than 6 Hours Per Day (ICD-10-PCS; principal; 2020-02-21)
DX: T82.41XA Breakdown (mechanical) of vascular dialysis catheter, initial encounter (principal); Y83.8 Other surgical procedures as the cause of abnormal reaction of the patient, or of later complication, without mention of misadventure at the time of the procedure; I13.2 Hypertensive heart and chronic kidney disease with heart failure and with stage 5 chronic kidney disease, or end stage renal disease; E11.22 Type 2 diabetes mellitus with diabetic chronic kidney disease; N18.6 End stage renal disease; I50.32 Chronic diastolic (congestive) heart failure; Z99.2 Dependence on renal dialysis; E03.9 Hypothyroidism, unspecified; I27.20 Pulmonary hypertension, unspecified; E11.40 Type 2 diabetes mellitus with diabetic neuropathy, unspecified; E78.00 Pure hypercholesterolemia, unspecified; G47.30 Sleep apnea, unspecified; D63.1 Anemia in chronic kidney disease; E11.69 Type 2 diabetes mellitus with other specified complication; M86.8X8 Other osteomyelitis, other site; E11.621 Type 2 diabetes mellitus with foot ulcer; L97.508 Non-pressure chronic ulcer of other part of unspecified foot with other specified severity; E66.01 Morbid (severe) obesity due to excess calories; Z68.41 Body mass index [BMI] 40.0-44.9, adult
CPT/HCPCS: 36415; 71045-TC-FY; 80053; 82962; 83735; 84100; 84443; 85025; 85610; 85730; 86850; 86900; 86901; 99285-25; J1644; U0003

== ENCOUNTER 2020-05-02 17:45 | Emergency (ER) | payer OTHER ==
[2020-05-02 17:57] VITALS: BMI 41.5
[2020-05-02] MEDS ORDERED: ACETAMINOPHEN 500 MG TABLET (FP) PO ONE (21:48)
[2020-05-02] MEDS ORDERED: ACETAMINOPHEN 500 MG TABLET (FP) ONE ×2 (22:06→22:09)
[2020-05-02 22:29] VITALS: BP 133/79; PULSE 85; TEMP 98.2
== END 2020-05-02 23:01 | disposition home or self-care (01) ==
LOC: JER 17:45
DX: M79.602 Pain in left arm (principal); I82.622 Acute embolism and thrombosis of deep veins of left upper extremity
CPT/HCPCS: 93971; 99284-25

== ENCOUNTER 2020-05-06 04:48 | Day surgery (SDC) | payer OTHER ==
[2020-05-05 17:59] VITALS: BMI 42.5
[2020-05-06] MEDS ORDERED: LIDOCAINE HCL 1%, 10 MG/ML (20ML VIAL) ONE (14:22)
[2020-05-06] MEDS ORDERED: HEPARIN NA (PORCINE) 5,000 UNITS/ML 1ML VIAL ONE (14:22)
[2020-05-06] MEDS ORDERED: MIDAZOLAM HCL 2 MG/2 ML SINGLE DOSE VIAL ONE (15:15)
[2020-05-06] MEDS ORDERED: PROPOFOL 20 ML ONE ×3 (15:15→16:14)
[2020-05-06] MEDS ORDERED: SODIUM CHLORIDE 0.9% P/F 10 ML VIAL IJ ONE (15:48)
[2020-05-06] MEDS ORDERED: ceFAZolin SODIUM 1 GM VIAL ONE (15:48)
[2020-05-06] MEDS ORDERED: ceFAZolin SODIUM 1 GM VIAL IVPB ONE (15:50)
[2020-05-06] MEDS ORDERED: LIDOCAINE HCL/PF 2% SDV 5ML VIAL ONE (15:53)
[2020-05-06] MEDS ORDERED: LIDOCAINE HCL 1%, 10 MG/ML (20ML VIAL) NR ONE ×5 (16:02→16:35)
[2020-05-06] MEDS ORDERED: ONDANSETRON 4 MG/2 ML VIAL IVPUSH PRN (17:13)
[2020-05-06] MEDS ORDERED: oxyCODONE HCL 5 MG TABLET PO PRN ×2 (17:13)
[2020-05-06] MEDS ORDERED: LACTATED RINGERS SOLUTION 1,000 ML IV SCH (17:15)
[2020-05-06 19:52] VITALS: BP 128/78; PULSE 80; TEMP 97.4
== END 2020-05-06 19:05 | disposition home or self-care (01) ==
LOC: JASU-SURG 04:48
PROVIDERS: ATTEND Surgery Vascular Surgery
PROC: 02H633Z Insertion of Infusion Device into Right Atrium, Percutaneous Approach (ICD-10-PCS; 2020-05-06)
PROC: B548ZZA Ultrasonography of Superior Vena Cava, Guidance (ICD-10-PCS; 2020-05-06)
PROC: 031C3ZF Bypass Left Radial Artery to Lower Arm Vein, Percutaneous Approach (ICD-10-PCS; principal; 2020-05-06 15:00)
PROC: 02HV33Z Insertion of Infusion Device into Superior Vena Cava, Percutaneous Approach (ICD-10-PCS; 2020-05-06 15:00)
DX: T82.898A Other specified complication of vascular prosthetic devices, implants and grafts, initial encounter (principal); I12.0 Hypertensive chronic kidney disease with stage 5 chronic kidney disease or end stage renal disease; E11.22 Type 2 diabetes mellitus with diabetic chronic kidney disease; N18.6 End stage renal disease; Z99.2 Dependence on renal dialysis
CPT/HCPCS: 36558; 37607; C1751; 36415; 71045-TC-FY; 76000-TC-FY; 82947; 84132; 94760; J1644

== ENCOUNTER 2020-06-12 13:59 | Inpatient (IN) | payer OTHER ==
[2020-06-12] MEDS ORDERED: VANCOMYCIN HCL 2,000 MG in DEXTROSE 5%-WATER - 500 ML IVPB ONE (15:52)
[2020-06-12] MEDS ORDERED: PIPERACILLIN/TAZOB 4.5 GM 4.5 GM in DEXTROSE 5%-WATER 100 ML IVPB ONE (15:54)
[2020-06-12] MEDS ORDERED: PIPERACILLIN/TAZOB 4.5 GM 4.5 GM/100 ML BAG IVPB ONE (15:58)
[2020-06-12 16:19] LABS: BASO % 0.8 % (0-2.0); EOS % 4.1 % (0-4.5); HEMATOCRIT 32.9 % (35.4-49); HEMOGLOBIN 10.7 GM/dL (11.7-16.9); MCH 29.9 pg (25.7-33.7); MCHC 32.5 g/dl (32.0-35.9); MEAN CELL VOLUME 92.1 fl (80-96); MEAN PLT VOLUME 7.7 fl (7.5-11.1); NEUT % 70.1 % (42.8-82.8); PLATELET COUNT 239 K/MM3 (134-434); RBC 3.58 M/mm3 (4.00-5.60); RDW 15.3 % (11.9-15.9); WHITE BLOOD COUNT 10.4 K/mm3 (4.0-10.0)
[2020-06-12 16:24] LABS: INR 1.16 (0.83-1.09)
[2020-06-12 16:26] LABS: ACTIVATED PTT 34.8 SECONDS (25.2-36.5)
[2020-06-12 16:33] LABS: POTASSIUM 4.9 mmol/L (3.5-5.1)
[2020-06-12 16:35] LABS: ALBUMIN 2.8 g/dl (3.4-5.0); BLOOD UREA NITROGEN 43.1 mg/dL (7-18); CALCIUM 9.5 mg/dL (8.5-10.1)
[2020-06-12 16:38] LABS: CREATININE 6.2 mg/dL (0.55-1.3)
[2020-06-12 16:40] LABS: BILIRUBIN,TOTAL 0.3 mg/dL (0.2-1); TOT PROT 7.7 g/dl (6.4-8.2)
[2020-06-12 17:05] LABS: ERYTHROCYTE SEDIMENTATION RATE 96 mm/hr (0-20)
[2020-06-12] MEDS ORDERED: HEPARIN NA (PORCINE) 5,000 UNITS/ML 1ML VIAL IVPUSH PRN (19:10)
[2020-06-12] MEDS ORDERED: HEPARIN INFUSION - 25,000 UNITS/500 ML INFUS.BAG IVPB ONE (20:15)
[2020-06-12] MEDS ORDERED: HEPARIN NA (PORCINE) 5,000 UNITS/ML 1ML VIAL ONE (20:15)
[2020-06-12] MEDS: HEPARIN NA (PORCINE) 5,000 UNITS/ML 1ML VIAL IVPUSH PRN (20:27)
[2020-06-12] MEDS: HEPARIN - 25,000 UNIT in SODIUM CHLORIDE 495 ML IV SCH (20:28)
[2020-06-12] MEDS ORDERED: oxyCODONE HCL 5 MG TABLET ONE (21:13)
[2020-06-12] MEDS: oxyCODONE HCL 5 MG TABLET PO PRN (21:16)
[2020-06-12] MEDS ORDERED: ATORVASTATIN CA 80 MG TABLET (FP) ONE (22:10)
[2020-06-12] MEDS: ATORVASTATIN CA 80 MG TABLET (FP) PO SCH (22:13)
[2020-06-13] MEDS: oxyCODONE HCL 5 MG TABLET PO PRN ×3 (07:06→21:53)
[2020-06-13] MEDS: HEPARIN - 25,000 UNIT in SODIUM CHLORIDE 495 ML IV SCH ×3 (08:01→21:46)
[2020-06-13] MEDS: HEPARIN NA (PORCINE) 5,000 UNITS/ML 1ML VIAL IVPUSH PRN ×2 (08:09→17:14)
[2020-06-13 08:23] LABS: BASO % 0.3 % (0-2.0); EOS % 5.5 % (0-4.5); HEMATOCRIT 32.5 % (35.4-49); HEMOGLOBIN 10.3 GM/dL (11.7-16.9); LYMPH % 20.4 % (8-40); MCH 29.4 pg (25.7-33.7); MCHC 31.8 g/dl (32.0-35.9); MEAN CELL VOLUME 92.4 fl (80-96); MEAN PLT VOLUME 7.8 fl (7.5-11.1); MONO % 10.5 % (3.8-10.2); NEUT % 63.3 % (42.8-82.8); PLATELET COUNT 228 K/MM3 (134-434); RBC 3.51 M/mm3 (4.00-5.60); RDW 15.3 % (11.9-15.9); WHITE BLOOD COUNT 7.1 K/mm3 (4.0-10.0)
[2020-06-13 08:26] LABS: POTASSIUM 5.3 mmol/L (3.5-5.1)
[2020-06-13 08:39] LABS: CALCIUM 8.9 mg/dL (8.5-10.1)
[2020-06-13 08:40] LABS: ALBUMIN 2.5 g/dl (3.4-5.0); BLOOD UREA NITROGEN 53.8 mg/dL (7-18); MAGNESIUM 2.2 mg/dL (1.8-2.4)
[2020-06-13 08:42] LABS: INR 1.08 (0.83-1.09); PROTHROMBIN TIME (PATIENT) 13.3 SEC (9.7-13.0)
[2020-06-13 08:43] LABS: ACTIVATED PTT 33.1 SECONDS (25.2-36.5); CREATININE 7.2 mg/dL (0.55-1.3); PHOSPHOROUS 8.4 mg/dL (2.5-4.9)
[2020-06-13 08:44] LABS: BILIRUBIN,TOTAL 0.4 mg/dL (0.2-1); TOT PROT 6.9 g/dl (6.4-8.2)
[2020-06-13] MEDS ORDERED: EPOETIN ALFA-EPBX 4,000 UNIT/ML VIAL SQ ONE (09:49)
[2020-06-13] MEDS ORDERED: SODIUM CHLORIDE 250 ML IV PRN (09:49)
[2020-06-13] MEDS: ACETAMINOPHEN 650 MG/20.3 ML ORAL SOLUTION (CUPS) PO PRN (15:29)
[2020-06-13] MEDS: ATORVASTATIN CA 80 MG TABLET (FP) PO SCH (21:45)
[2020-06-13] MEDS: MUPIROCIN 2% TOPICAL OINTMENT 22 GM TUBE TP SCH (21:45)
[2020-06-14] MEDS: HEPARIN NA (PORCINE) 5,000 UNITS/ML 1ML VIAL IVPUSH PRN (00:54)
[2020-06-14 08:50] LABS: HEMATOCRIT 31.7 % (35.4-49); HEMOGLOBIN 10.4 GM/dL (11.7-16.9); MCH 30.3 pg (25.7-33.7); MCHC 32.8 g/dl (32.0-35.9); MEAN CELL VOLUME 92.5 fl (80-96); MEAN PLT VOLUME 7.7 fl (7.5-11.1); PLATELET COUNT 243 K/MM3 (134-434); RBC 3.42 M/mm3 (4.00-5.60); WHITE BLOOD COUNT 7.6 K/mm3 (4.0-10.0)
[2020-06-14] MEDS: oxyCODONE HCL 5 MG TABLET PO PRN ×2 (09:24→17:56)
[2020-06-14] MEDS: MUPIROCIN 2% TOPICAL OINTMENT 22 GM TUBE TP SCH ×2 (10:08→21:39)
[2020-06-14] MEDS ORDERED: EPOETIN ALFA-EPBX 4,000 UNIT/ML VIAL SQ ONE (13:00)
[2020-06-14] MEDS: amLODIPine BESYLATE 10 MG TABLET (FP) PO SCH (15:08)
[2020-06-14] MEDS: HEPARIN NA (PORCINE) 5,000 UNITS/ML 1ML VIAL SQ SCH ×2 (15:08→21:39)
[2020-06-14] MEDS: CALCIUM ACETATE 667 MG CAPSULE (FP) PO SCH (17:55)
[2020-06-14] MEDS: SEVELAMER CARBONATE 800 MG TAB (FP) PO SCH (17:55)
[2020-06-14] MEDS: ATORVASTATIN CA 80 MG TABLET (FP) PO SCH (21:40)
[2020-06-14] MEDS: INSULIN SLIDING SCALE (NOVOLOG) 1 VIAL SQ SCH (22:53)
[2020-06-14] MEDS ORDERED: INSULIN (NOVOLOG) ASPART 100 UNITS/ML 10ML VIAL ONE (22:54)
[2020-06-15] MEDS: oxyCODONE HCL 5 MG TABLET PO PRN ×3 (00:27→17:21)
[2020-06-15] MEDS: LEVOTHYROXINE NA 25 MCG TABLET (FP) PO SCH (06:30)
[2020-06-15] MEDS: INSULIN SLIDING SCALE (NOVOLOG) 1 VIAL SQ SCH ×4 (06:30→21:36)
[2020-06-15] MEDS: HEPARIN NA (PORCINE) 5,000 UNITS/ML 1ML VIAL SQ SCH ×3 (06:30→21:35)
[2020-06-15] MEDS ORDERED: INSULIN SLIDING SCALE (NOVOLOG) 1 VIAL SQ SCH (07:00)
[2020-06-15] MEDS: SEVELAMER CARBONATE 800 MG TAB (FP) PO SCH ×3 (08:25→17:09)
[2020-06-15] MEDS: CALCIUM ACETATE 667 MG CAPSULE (FP) PO SCH ×3 (08:25→17:10)
[2020-06-15 08:48] LABS: HEMATOCRIT 31.8 % (35.4-49); HEMOGLOBIN 10.5 GM/dL (11.7-16.9); MCH 30.4 pg (25.7-33.7); MCHC 33.1 g/dl (32.0-35.9); MEAN CELL VOLUME 91.8 fl (80-96); MEAN PLT VOLUME 7.4 fl (7.5-11.1); PLATELET COUNT 247 K/MM3 (134-434); RBC 3.46 M/mm3 (4.00-5.60); RDW 15.3 % (11.9-15.9); WHITE BLOOD COUNT 7.1 K/mm3 (4.0-10.0)
[2020-06-15 09:04] LABS: POTASSIUM 4.6 mmol/L (3.5-5.1)
[2020-06-15] MEDS: FERROUS SO4 325 MG TABLET (FP) PO SCH (09:08)
[2020-06-15 09:09] LABS: ALBUMIN 2.5 g/dl (3.4-5.0); CALCIUM 8.7 mg/dL (8.5-10.1)
[2020-06-15] MEDS: MUPIROCIN 2% TOPICAL OINTMENT 22 GM TUBE TP SCH ×2 (09:09→21:35)
[2020-06-15] MEDS: amLODIPine BESYLATE 10 MG TABLET (FP) PO SCH (09:09)
[2020-06-15 09:10] LABS: BLOOD UREA NITROGEN 43.4 mg/dL (7-18)
[2020-06-15 09:12] LABS: BILIRUBIN,TOTAL 0.4 mg/dL (0.2-1)
[2020-06-15 09:13] LABS: CREATININE 6.8 mg/dL (0.55-1.3); PHOSPHOROUS 7.5 mg/dL (2.5-4.9); TOT PROT 7.1 g/dl (6.4-8.2)
[2020-06-15] MEDS ORDERED: VANCOMYCIN 1 GRAM (PRE-DOCKED) 1,000 MG/250 ML BAG IVPB ONE (14:17)
[2020-06-15] MEDS ORDERED: SODIUM CHLORIDE 250 ML IV PRN (14:19)
[2020-06-15] MEDS: ATORVASTATIN CA 80 MG TABLET (FP) PO SCH (21:35)
[2020-06-15] MEDS: ACETAMINOPHEN 650 MG/20.3 ML ORAL SOLUTION (CUPS) PO PRN (21:38)
[2020-06-16] MEDS: oxyCODONE HCL 5 MG TABLET PO PRN ×3 (02:05→18:59)
[2020-06-16] MEDS: INSULIN SLIDING SCALE (NOVOLOG) 1 VIAL SQ SCH ×4 (06:23→22:55)
[2020-06-16] MEDS: HEPARIN NA (PORCINE) 5,000 UNITS/ML 1ML VIAL SQ SCH ×2 (06:23→18:57)
[2020-06-16] MEDS: LEVOTHYROXINE NA 25 MCG TABLET (FP) PO SCH (06:33)
[2020-06-16] MEDS ORDERED: INSULIN (NOVOLOG) ASPART 100 UNITS/ML 10ML VIAL ONE (07:34)
[2020-06-16 10:10] LABS: HEMATOCRIT 32.1 % (35.4-49); HEMOGLOBIN 10.3 GM/dL (11.7-16.9); MCH 29.9 pg (25.7-33.7); MCHC 32.3 g/dl (32.0-35.9); MEAN CELL VOLUME 92.8 fl (80-96); MEAN PLT VOLUME 7.5 fl (7.5-11.1); PLATELET COUNT 255 K/MM3 (134-434); RBC 3.46 M/mm3 (4.00-5.60); RDW 15.4 % (11.9-15.9); WHITE BLOOD COUNT 7.3 K/mm3 (4.0-10.0)
[2020-06-16 10:34] LABS: BLOOD UREA NITROGEN 53.5 mg/dL (7-18); CALCIUM 9.4 mg/dL (8.5-10.1); MAGNESIUM 2.1 mg/dL (1.8-2.4)
[2020-06-16 10:38] LABS: PHOSPHOROUS 8.4 mg/dL (2.5-4.9)
[2020-06-16 10:44] LABS: CREATININE 8.2 mg/dL (0.55-1.3)
[2020-06-16] MEDS: SEVELAMER CARBONATE 800 MG TAB (FP) PO SCH ×3 (11:33→18:59)
[2020-06-16] MEDS: FERROUS SO4 325 MG TABLET (FP) PO SCH (11:34)
[2020-06-16] MEDS: CALCIUM ACETATE 667 MG CAPSULE (FP) PO SCH ×3 (11:34→18:59)
[2020-06-16] MEDS: MUPIROCIN 2% TOPICAL OINTMENT 22 GM TUBE TP SCH ×2 (11:35→22:54)
[2020-06-16] MEDS: amLODIPine BESYLATE 10 MG TABLET (FP) PO SCH (11:35)
[2020-06-16] MEDS ORDERED: HEPARIN NA (PORCINE) 5,000 UNITS/ML 1ML VIAL IVPUSH ONE (12:30)
[2020-06-16] MEDS ORDERED: EPOETIN ALFA-EPBX 3,000 UNIT/ML VIAL IVPUSH ONE (13:00)
[2020-06-16 21:06] LABS: HEP B CORE AB, TOT Negative (Negative)
[2020-06-16] MEDS: ATORVASTATIN CA 80 MG TABLET (FP) PO SCH (22:55)
[2020-06-17] MEDS: oxyCODONE HCL 5 MG TABLET PO PRN ×3 (01:09→17:04)
[2020-06-17] MEDS: HEPARIN NA (PORCINE) 5,000 UNITS/ML 1ML VIAL SQ SCH ×2 (01:18→23:23)
[2020-06-17 02:19] LABS: INR 1.19 (0.83-1.09); PROTHROMBIN TIME (PATIENT) 14.3 SEC (9.7-13.0)
[2020-06-17 02:22] LABS: ACTIVATED PTT 33.4 SECONDS (25.2-36.5)
[2020-06-17] MEDS: LEVOTHYROXINE NA 25 MCG TABLET (FP) PO SCH (06:56)
[2020-06-17] MEDS: INSULIN SLIDING SCALE (NOVOLOG) 1 VIAL SQ SCH ×4 (06:56→23:24)
[2020-06-17] MEDS: CALCIUM ACETATE 667 MG CAPSULE (FP) PO SCH ×3 (08:00→17:00)
[2020-06-17] MEDS: SEVELAMER CARBONATE 800 MG TAB (FP) PO SCH ×3 (08:00→17:00)
[2020-06-17] MEDS: MUPIROCIN 2% TOPICAL OINTMENT 22 GM TUBE TP SCH ×2 (09:22→23:18)
[2020-06-17] MEDS: FERROUS SO4 325 MG TABLET (FP) PO SCH (09:24)
[2020-06-17] MEDS ORDERED: LIDOCAINE HCL 2% (20ML MULTI-DOSE VIAL) ONE (10:46)
[2020-06-17 11:09] LABS: MCH 29.8 pg (25.7-33.7); MCHC 32.2 g/dl (32.0-35.9); MEAN CELL VOLUME 92.6 fl (80-96); MEAN PLT VOLUME 7.5 fl (7.5-11.1); PLATELET COUNT 253 K/MM3 (134-434); RBC 3.35 M/mm3 (4.00-5.60); WHITE BLOOD COUNT 7.6 K/mm3 (4.0-10.0)
[2020-06-17 11:18] LABS: INR 1.25 (0.83-1.09); PROTHROMBIN TIME (PATIENT) 15.3 SEC (9.7-13.0)
[2020-06-17 11:21] LABS: ACTIVATED PTT 34.4 SECONDS (25.2-36.5)
[2020-06-17] MEDS ORDERED: MIDAZOLAM HCL 2 MG/2 ML SINGLE DOSE VIAL ONE (11:29)
[2020-06-17] MEDS ORDERED: PROPOFOL 20 ML ONE ×2 (11:29→12:51)
[2020-06-17] MEDS ORDERED: ONDANSETRON 4 MG/2 ML VIAL IVPUSH PRN ×2 (11:41→13:23)
[2020-06-17 11:47] LABS: BLOOD UREA NITROGEN 36.2 mg/dL (7-18); CALCIUM 8.6 mg/dL (8.5-10.1); CREATININE 5.9 mg/dL (0.55-1.3); MAGNESIUM 1.8 mg/dL (1.8-2.4); PHOSPHOROUS 5.8 mg/dL (2.5-4.9); POTASSIUM 4.7 mmol/L (3.5-5.1)
[2020-06-17] MEDS ORDERED: VANCOMYCIN 1,000 MG VIAL (RESTRICTED TO ID ONLY) IVPB ONE (12:28)
[2020-06-17] MEDS ORDERED: LIDOCAINE HCL 2% (50ML VIAL) NR ONE (12:40)
[2020-06-17] MEDS ORDERED: VANCOMYCIN 1,000 MG VIAL (RESTRICTED TO ID ONLY) ONE (12:50)
[2020-06-17] MEDS ORDERED: oxyCODONE HCL 5 MG TABLET PO PRN (13:18)
[2020-06-17] MEDS ORDERED: ACETAMINOPHEN 650 MG/20.3 ML ORAL SOLUTION (CUPS) PO PRN (13:23)
[2020-06-17] MEDS ORDERED: SODIUM CHLORIDE 250 ML IV PRN (17:10)
[2020-06-17] MEDS ORDERED: EPOETIN ALFA-EPBX 4,000 UNIT/ML VIAL IVPUSH ONE (17:10)
[2020-06-17] MEDS ORDERED: PT OWN MED DRAWER 7, Y5N ONE (18:33)
[2020-06-17] MEDS ORDERED: INSULIN (NOVOLOG) ASPART 100 UNITS/ML 10ML VIAL ONE (23:21)
[2020-06-17] MEDS: ATORVASTATIN CA 80 MG TABLET (FP) PO SCH (23:23)
[2020-06-18] MEDS: oxyCODONE HCL 5 MG TABLET PO PRN ×4 (00:46→20:36)
[2020-06-18] MEDS: LEVOTHYROXINE NA 25 MCG TABLET (FP) PO SCH (06:56)
[2020-06-18] MEDS: INSULIN SLIDING SCALE (NOVOLOG) 1 VIAL SQ SCH ×4 (07:00→21:54)
[2020-06-18] MEDS: HEPARIN NA (PORCINE) 5,000 UNITS/ML 1ML VIAL SQ SCH ×3 (07:00→21:48)
[2020-06-18 09:12] LABS: HEMATOCRIT 34.2 % (35.4-49); HEMOGLOBIN 11.1 GM/dL (11.7-16.9); MCH 30.1 pg (25.7-33.7); MCHC 32.3 g/dl (32.0-35.9); MEAN CELL VOLUME 93.1 fl (80-96); MEAN PLT VOLUME 7.6 fl (7.5-11.1); PLATELET COUNT 299 K/MM3 (134-434); RBC 3.68 M/mm3 (4.00-5.60); RDW 15.1 % (11.9-15.9); WHITE BLOOD COUNT 6.2 K/mm3 (4.0-10.0)
[2020-06-18 09:15] LABS: BASO % 0.5 % (0-2.0); EOS % 5.6 % (0-4.5); HEMATOCRIT 33.1 % (35.4-49); LYMPH % 18.1 % (8-40); MCH 30.8 pg (25.7-33.7); MCHC 33.3 g/dl (32.0-35.9); MEAN CELL VOLUME 92.5 fl (80-96); MEAN PLT VOLUME 7.8 fl (7.5-11.1); MONO % 8.1 % (3.8-10.2); NEUT % 67.7 % (42.8-82.8); PLATELET COUNT 293 K/MM3 (134-434); RBC 3.58 M/mm3 (4.00-5.60); WHITE BLOOD COUNT 7.3 K/mm3 (4.0-10.0)
[2020-06-18 09:31] LABS: POTASSIUM 4.8 mmol/L (3.5-5.1)
[2020-06-18] MEDS: MUPIROCIN 2% TOPICAL OINTMENT 22 GM TUBE TP SCH ×2 (09:35→21:47)
[2020-06-18] MEDS: SEVELAMER CARBONATE 800 MG TAB (FP) PO SCH ×3 (09:35→20:05)
[2020-06-18] MEDS: FERROUS SO4 325 MG TABLET (FP) PO SCH (09:35)
[2020-06-18] MEDS: CALCIUM ACETATE 667 MG CAPSULE (FP) PO SCH ×2 (09:35→20:05)
[2020-06-18 09:50] LABS: BLOOD UREA NITROGEN 45.2 mg/dL (7-18); CALCIUM 9.2 mg/dL (8.5-10.1)
[2020-06-18 10:27] LABS: CREATININE 7.5 mg/dL (0.55-1.3)
[2020-06-18 10:58] LABS: PLATELET ESTIMATE NORMAL
[2020-06-18] MEDS ORDERED: DEXTROSE 5%-WATER - 50 ML IVPB ONE (12:19)
[2020-06-18] MEDS ORDERED: PIPERACILLIN/TAZOBACTAM 2.25 GM VIAL IVPB ONE (12:19)
[2020-06-18] MEDS ORDERED: VANCOMYCIN 1 GRAM (PRE-DOCKED) 1,000 MG/250 ML BAG IVPB ONE (12:23)
[2020-06-18] MEDS: PIPERACILLIN/TAZOB 2.25 GM 2.25 GM in DEXTROSE 5%-WATER - 50 ML IVPB SCH ×2 (18:17→19:53)
[2020-06-18] MEDS: ATORVASTATIN CA 80 MG TABLET (FP) PO SCH (21:48)
[2020-06-19] MEDS ORDERED: PIPERACILLIN/TAZOBACTAM 2.25 GM VIAL IVPB ONE ×3 (00:18→16:53)
[2020-06-19] MEDS ORDERED: DEXTROSE 5%-WATER - 50 ML IVPB ONE ×3 (00:18→16:53)
[2020-06-19] MEDS: PIPERACILLIN/TAZOB 2.25 GM 2.25 GM in DEXTROSE 5%-WATER - 50 ML IVPB SCH ×3 (01:02→17:04)
[2020-06-19] MEDS: oxyCODONE HCL 5 MG TABLET PO PRN ×3 (03:13→18:26)
[2020-06-19] MEDS: LEVOTHYROXINE NA 25 MCG TABLET (FP) PO SCH (06:01)
[2020-06-19] MEDS: INSULIN SLIDING SCALE (NOVOLOG) 1 VIAL SQ SCH ×4 (06:01→22:20)
[2020-06-19] MEDS ORDERED: LIDOCAINE HCL 2% (20ML MULTI-DOSE VIAL) ONE (07:49)
[2020-06-19 08:34] LABS: BASO % 0.3 % (0-2.0); EOS % 4.4 % (0-4.5); HEMATOCRIT 28.1 % (35.4-49); HEMOGLOBIN 9.1 GM/dL (11.7-16.9); MCHC 32.3 g/dl (32.0-35.9); MEAN CELL VOLUME 92.9 fl (80-96); MEAN PLT VOLUME 7.7 fl (7.5-11.1); NEUT % 71.3 % (42.8-82.8); PLATELET COUNT 254 K/MM3 (134-434); RBC 3.03 M/mm3 (4.00-5.60); RDW 14.6 % (11.9-15.9); WHITE BLOOD COUNT 8.3 K/mm3 (4.0-10.0)
[2020-06-19 08:42] LABS: INR 1.18 (0.83-1.09); PROTHROMBIN TIME (PATIENT) 14.5 SEC (9.7-13.0)
[2020-06-19 08:43] LABS: ACTIVATED PTT 34.2 SECONDS (25.2-36.5)
[2020-06-19 08:47] LABS: POTASSIUM 4.3 mmol/L (3.5-5.1)
[2020-06-19 08:49] LABS: CALCIUM 8.5 mg/dL (8.5-10.1)
[2020-06-19 08:50] LABS: MAGNESIUM 1.8 mg/dL (1.8-2.4)
[2020-06-19 08:53] LABS: CREATININE 5.8 mg/dL (0.55-1.3)
[2020-06-19 08:54] LABS: PHOSPHOROUS 4.7 mg/dL (2.5-4.9)
[2020-06-19] MEDS ORDERED: MIDAZOLAM HCL 2 MG/2 ML SINGLE DOSE VIAL ONE ×2 (10:29)
[2020-06-19] MEDS ORDERED: LIDOCAINE HCL 2% (50ML VIAL) INF ONE (10:42)
[2020-06-19] MEDS ORDERED: ACETAMINOPHEN 650 MG/20.3 ML ORAL SOLUTION (CUPS) PO PRN (11:35)
[2020-06-19] MEDS ORDERED: EPOETIN ALFA-EPBX 4,000 UNIT/ML VIAL IVPUSH ONE (11:35)
[2020-06-19] MEDS ORDERED: ONDANSETRON 4 MG/2 ML VIAL IVPUSH PRN (11:41)
[2020-06-19] MEDS ORDERED: oxyCODONE HCL 5 MG TABLET PO PRN (11:42)
[2020-06-19] MEDS: SEVELAMER CARBONATE 800 MG TAB (FP) PO SCH ×3 (13:16→17:04)
[2020-06-19] MEDS: FERROUS SO4 325 MG TABLET (FP) PO SCH (13:17)
[2020-06-19] MEDS: MUPIROCIN 2% TOPICAL OINTMENT 22 GM TUBE TP SCH ×2 (13:17→22:19)
[2020-06-19] MEDS: HEPARIN NA (PORCINE) 5,000 UNITS/ML 1ML VIAL SQ SCH (22:20)
[2020-06-19] MEDS: ATORVASTATIN CA 80 MG TABLET (FP) PO SCH (22:20)
[2020-06-20] MEDS ORDERED: PIPERACILLIN/TAZOBACTAM 2.25 GM VIAL IVPB ONE ×3 (02:32→16:43)
[2020-06-20] MEDS ORDERED: DEXTROSE 5%-WATER - 50 ML IVPB ONE ×3 (02:32→16:44)
[2020-06-20] MEDS: PIPERACILLIN/TAZOB 2.25 GM 2.25 GM in DEXTROSE 5%-WATER - 50 ML IVPB SCH ×3 (02:37→17:06)
[2020-06-20] MEDS: oxyCODONE HCL 5 MG TABLET PO PRN ×3 (03:10→22:03)
[2020-06-20] MEDS: LEVOTHYROXINE NA 25 MCG TABLET (FP) PO SCH (06:20)
[2020-06-20] MEDS: HEPARIN NA (PORCINE) 5,000 UNITS/ML 1ML VIAL SQ SCH ×3 (06:20→22:04)
[2020-06-20] MEDS: INSULIN SLIDING SCALE (NOVOLOG) 1 VIAL SQ SCH ×4 (06:21→22:06)
[2020-06-20] MEDS: SEVELAMER CARBONATE 800 MG TAB (FP) PO SCH ×3 (08:07→17:06)
[2020-06-20 10:00] LABS: BASO % 0.4 % (0-2.0); EOS % 3.7 % (0-4.5); HEMATOCRIT 27.1 % (35.4-49); LYMPH % 11.8 % (8-40); MCH 30.4 pg (25.7-33.7); MCHC 33.4 g/dl (32.0-35.9); MEAN PLT VOLUME 7.2 fl (7.5-11.1); MONO % 8.6 % (3.8-10.2); NEUT % 75.5 % (42.8-82.8); PLATELET COUNT 276 K/MM3 (134-434); RBC 2.97 M/mm3 (4.00-5.60); RDW 14.9 % (11.9-15.9); WHITE BLOOD COUNT 10.4 K/mm3 (4.0-10.0)
[2020-06-20] MEDS: MUPIROCIN 2% TOPICAL OINTMENT 22 GM TUBE TP SCH ×2 (10:04→22:05)
[2020-06-20] MEDS: FERROUS SO4 325 MG TABLET (FP) PO SCH (10:06)
[2020-06-20 10:16] LABS: POTASSIUM 4.5 mmol/L (3.5-5.1)
[2020-06-20 10:18] LABS: BLOOD UREA NITROGEN 42.3 mg/dL (7-18); CALCIUM 8.6 mg/dL (8.5-10.1)
[2020-06-20 10:19] LABS: MAGNESIUM 1.8 mg/dL (1.8-2.4)
[2020-06-20 10:22] LABS: PHOSPHOROUS 5.3 mg/dL (2.5-4.9)
[2020-06-20 10:30] LABS: CREATININE 7.6 mg/dL (0.55-1.3)
[2020-06-20] MEDS ORDERED: INSULIN (NOVOLOG) ASPART 100 UNITS/ML 10ML VIAL ONE (11:29)
[2020-06-20] MEDS ORDERED: SODIUM CHLORIDE 250 ML IV PRN (14:26)
[2020-06-20] MEDS: ATORVASTATIN CA 80 MG TABLET (FP) PO SCH (22:04)
[2020-06-21] MEDS ORDERED: DEXTROSE 5%-WATER - 50 ML IVPB ONE ×3 (01:32→17:56)
[2020-06-21] MEDS ORDERED: PIPERACILLIN/TAZOBACTAM 2.25 GM VIAL IVPB ONE ×3 (01:32→17:56)
[2020-06-21] MEDS: PIPERACILLIN/TAZOB 2.25 GM 2.25 GM in DEXTROSE 5%-WATER - 50 ML IVPB SCH ×3 (01:37→18:04)
[2020-06-21] MEDS: oxyCODONE HCL 5 MG TABLET PO PRN ×2 (06:17→18:16)
[2020-06-21] MEDS: LEVOTHYROXINE NA 25 MCG TABLET (FP) PO SCH (06:18)
[2020-06-21] MEDS: HEPARIN NA (PORCINE) 5,000 UNITS/ML 1ML VIAL SQ SCH ×3 (06:18→22:12)
[2020-06-21] MEDS: INSULIN SLIDING SCALE (NOVOLOG) 1 VIAL SQ SCH ×4 (06:19→22:11)
[2020-06-21] MEDS ORDERED: EPOETIN ALFA-EPBX 4,000 UNIT/ML VIAL SQ ONE (08:00)
[2020-06-21] MEDS ORDERED: SODIUM CHLORIDE 250 ML IV PRN (08:00)
[2020-06-21] MEDS: SEVELAMER CARBONATE 800 MG TAB (FP) PO SCH ×3 (09:48→18:04)
[2020-06-21 10:01] LABS: BASO % 0.3 % (0-2.0); EOS % 3.8 % (0-4.5); HEMATOCRIT 26.9 % (35.4-49); HEMOGLOBIN 8.7 GM/dL (11.7-16.9); LYMPH % 11.1 % (8-40); MCH 29.5 pg (25.7-33.7); MCHC 32.2 g/dl (32.0-35.9); MEAN CELL VOLUME 91.7 fl (80-96); MEAN PLT VOLUME 7.8 fl (7.5-11.1); MONO % 8.3 % (3.8-10.2); NEUT % 76.5 % (42.8-82.8); PLATELET COUNT 279 K/MM3 (134-434); RBC 2.94 M/mm3 (4.00-5.60); RDW 15.3 % (11.9-15.9); WHITE BLOOD COUNT 10.2 K/mm3 (4.0-10.0)
[2020-06-21 10:25] LABS: POTASSIUM 4.8 mmol/L (3.5-5.1)
[2020-06-21 10:29] LABS: CALCIUM 8.5 mg/dL (8.5-10.1)
[2020-06-21 10:30] LABS: ALBUMIN 2.3 g/dl (3.4-5.0); BLOOD UREA NITROGEN 50.3 mg/dL (7-18)
[2020-06-21 10:32] LABS: PHOSPHOROUS 5.9 mg/dL (2.5-4.9)
[2020-06-21 10:34] LABS: BILIRUBIN,TOTAL 0.5 mg/dL (0.2-1); TOT PROT 6.9 g/dl (6.4-8.2)
[2020-06-21 11:04] LABS: CREATININE 8.6 mg/dL (0.55-1.3)
[2020-06-21] MEDS ORDERED: VANCOMYCIN 1 GRAM (PRE-DOCKED) 1,000 MG/250 ML BAG IVPB ONE (12:44)
[2020-06-21] MEDS: FERROUS SO4 325 MG TABLET (FP) PO SCH (13:04)
[2020-06-21] MEDS: MUPIROCIN 2% TOPICAL OINTMENT 22 GM TUBE TP SCH ×2 (13:05→22:14)
[2020-06-21] MEDS: ATORVASTATIN CA 80 MG TABLET (FP) PO SCH (22:12)
[2020-06-22] MEDS ORDERED: DEXTROSE 5%-WATER - 50 ML IVPB ONE ×3 (01:38→17:07)
[2020-06-22] MEDS ORDERED: PIPERACILLIN/TAZOBACTAM 2.25 GM VIAL IVPB ONE ×3 (01:38→17:07)
[2020-06-22] MEDS: oxyCODONE HCL 5 MG TABLET PO PRN ×4 (01:45→22:04)
[2020-06-22] MEDS: PIPERACILLIN/TAZOB 2.25 GM 2.25 GM in DEXTROSE 5%-WATER - 50 ML IVPB SCH ×3 (01:45→17:21)
[2020-06-22] MEDS: HEPARIN NA (PORCINE) 5,000 UNITS/ML 1ML VIAL SQ SCH ×3 (07:09→21:57)
[2020-06-22] MEDS: INSULIN SLIDING SCALE (NOVOLOG) 1 VIAL SQ SCH ×4 (07:10→21:57)
[2020-06-22] MEDS: LEVOTHYROXINE NA 25 MCG TABLET (FP) PO SCH (07:11)
[2020-06-22] MEDS: SEVELAMER CARBONATE 800 MG TAB (FP) PO SCH ×3 (08:40→17:21)
[2020-06-22] MEDS: FERROUS SO4 325 MG TABLET (FP) PO SCH ×2 (08:43→09:13)
[2020-06-22] MEDS ORDERED: PT OWN MED DRAWER 7, Y5N ONE ×3 (08:44→21:40)
[2020-06-22 09:03] LABS: HEMATOCRIT 29.1 % (35.4-49); HEMOGLOBIN 9.5 GM/dL (11.7-16.9); MCH 29.9 pg (25.7-33.7); MCHC 32.5 g/dl (32.0-35.9); MEAN CELL VOLUME 91.8 fl (80-96); MEAN PLT VOLUME 7.8 fl (7.5-11.1); PLATELET COUNT 328 K/MM3 (134-434); RBC 3.17 M/mm3 (4.00-5.60); RDW 14.7 % (11.9-15.9); WHITE BLOOD COUNT 10.1 K/mm3 (4.0-10.0)
[2020-06-22] MEDS: MUPIROCIN 2% TOPICAL OINTMENT 22 GM TUBE TP SCH ×2 (09:12→22:06)
[2020-06-22] MEDS: LINEZOLID 600 MG TABLET (RESTRICTED TO ID) PO SCH ×2 (09:13→22:55)
[2020-06-22 09:26] LABS: POTASSIUM 4.1 mmol/L (3.5-5.1)
[2020-06-22 09:33] LABS: ALBUMIN 2.5 g/dl (3.4-5.0); CALCIUM 8.4 mg/dL (8.5-10.1)
[2020-06-22 09:34] LABS: BLOOD UREA NITROGEN 33.5 mg/dL (7-18); MAGNESIUM 1.9 mg/dL (1.8-2.4)
[2020-06-22 09:35] LABS: PHOSPHOROUS 4.8 mg/dL (2.5-4.9)
[2020-06-22 09:36] LABS: BILIRUBIN,TOTAL 0.3 mg/dL (0.2-1); TOT PROT 7.7 g/dl (6.4-8.2)
[2020-06-22 09:37] LABS: CREATININE 6.5 mg/dL (0.55-1.3)
[2020-06-22] MEDS ORDERED: SODIUM CHLORIDE 250 ML IV PRN ×2 (16:55→16:56)
[2020-06-22] MEDS: ATORVASTATIN CA 80 MG TABLET (FP) PO SCH (21:55)
[2020-06-23] MEDS ORDERED: PIPERACILLIN/TAZOBACTAM 2.25 GM VIAL IVPB ONE ×2 (01:02→09:06)
[2020-06-23] MEDS ORDERED: DEXTROSE 5%-WATER - 50 ML IVPB ONE ×2 (01:02→09:06)
[2020-06-23] MEDS ORDERED: PT OWN MED DRAWER 7, Y5N ONE ×3 (01:03→21:13)
[2020-06-23] MEDS: PIPERACILLIN/TAZOB 2.25 GM 2.25 GM in DEXTROSE 5%-WATER - 50 ML IVPB SCH ×3 (01:13→18:24)
[2020-06-23] MEDS: oxyCODONE HCL 5 MG TABLET PO PRN (05:46)
[2020-06-23] MEDS: HEPARIN NA (PORCINE) 5,000 UNITS/ML 1ML VIAL SQ SCH ×2 (05:47→21:17)
[2020-06-23] MEDS: LEVOTHYROXINE NA 25 MCG TABLET (FP) PO SCH (06:09)
[2020-06-23] MEDS: INSULIN SLIDING SCALE (NOVOLOG) 1 VIAL SQ SCH ×3 (06:09→21:18)
[2020-06-23] MEDS: SEVELAMER CARBONATE 800 MG TAB (FP) PO SCH ×2 (09:14→16:53)
[2020-06-23] MEDS: LINEZOLID 600 MG TABLET (RESTRICTED TO ID) PO SCH ×2 (09:18→21:20)
[2020-06-23] MEDS: FERROUS SO4 325 MG TABLET (FP) PO SCH (09:18)
[2020-06-23] MEDS: MUPIROCIN 2% TOPICAL OINTMENT 22 GM TUBE TP SCH ×2 (09:19→21:19)
[2020-06-23 09:31] LABS: BASO % 0.3 % (0-2.0); EOS % 3.6 % (0-4.5); HEMATOCRIT 26.6 % (35.4-49); HEMOGLOBIN 8.7 GM/dL (11.7-16.9); LYMPH % 12.4 % (8-40); MCH 29.9 pg (25.7-33.7); MCHC 32.6 g/dl (32.0-35.9); MEAN CELL VOLUME 91.6 fl (80-96); MEAN PLT VOLUME 7.6 fl (7.5-11.1); MONO % 8.3 % (3.8-10.2); NEUT % 75.4 % (42.8-82.8); PLATELET COUNT 280 K/MM3 (134-434); RBC 2.91 M/mm3 (4.00-5.60); RDW 14.8 % (11.9-15.9); WHITE BLOOD COUNT 9.3 K/mm3 (4.0-10.0)
[2020-06-23 09:37] LABS: INR 1.34 (0.83-1.09); PROTHROMBIN TIME (PATIENT) 16.3 SEC (9.7-13.0)
[2020-06-23 09:39] LABS: ACTIVATED PTT 32.3 SECONDS (25.2-36.5)
[2020-06-23 09:55] LABS: POTASSIUM 4.5 mmol/L (3.5-5.1)
[2020-06-23 10:10] LABS: CALCIUM 8.5 mg/dL (8.5-10.1)
[2020-06-23 10:11] LABS: BLOOD UREA NITROGEN 43.6 mg/dL (7-18); MAGNESIUM 1.9 mg/dL (1.8-2.4)
[2020-06-23 10:14] LABS: PHOSPHOROUS 5.7 mg/dL (2.5-4.9)
[2020-06-23 10:17] LABS: CREATININE 7.7 mg/dL (0.55-1.3)
[2020-06-23] MEDS ORDERED: EPOETIN ALFA-EPBX 10,000 UNIT/ML VIAL IVPUSH ONE ×3 (12:15→16:45)
[2020-06-23] MEDS ORDERED: LIDOCAINE HCL 1%, 10 MG/ML (20ML VIAL) ONE (12:38)
[2020-06-23] MEDS ORDERED: HEPARIN NA (PORCINE) 5,000 UNITS/ML 1ML VIAL ONE ×2 (12:38→14:20)
[2020-06-23] MEDS ORDERED: SUCCINYLCHOLINE CHLORIDE 200 MG/10 ML SYRINGE ONE (13:59)
[2020-06-23] MEDS ORDERED: MIDAZOLAM HCL 2 MG/2 ML SINGLE DOSE VIAL ONE (13:59)
[2020-06-23] MEDS ORDERED: PROPOFOL 20 ML ONE (13:59)
[2020-06-23] MEDS ORDERED: LIDOCAINE HCL 1%, 10 MG/ML (20ML VIAL) NR ONE ×2 (14:06)
[2020-06-23] MEDS ORDERED: SODIUM CHLORIDE 250 ML IV PRN ×2 (15:06)
[2020-06-23] MEDS ORDERED: EPOETIN ALFA-EPBX 4,000 UNIT/ML VIAL IVPUSH ONE (15:06)
[2020-06-23] MEDS ORDERED: ACETAMINOPHEN 650 MG/20.3 ML ORAL SOLUTION (CUPS) PO PRN (15:06)
[2020-06-23] MEDS ORDERED: oxyCODONE HCL 5 MG TABLET PO PRN (15:06)
[2020-06-23] MEDS ORDERED: ONDANSETRON 4 MG/2 ML VIAL IVPUSH PRN (15:06)
[2020-06-23] MEDS: ATORVASTATIN CA 80 MG TABLET (FP) PO SCH (21:17)
[2020-06-24] MEDS: oxyCODONE HCL 5 MG TABLET PO PRN ×4 (00:10→21:15)
[2020-06-24] MEDS ORDERED: DEXTROSE 5%-WATER - 50 ML IVPB ONE ×3 (01:49→16:44)
[2020-06-24] MEDS ORDERED: PIPERACILLIN/TAZOBACTAM 2.25 GM VIAL IVPB ONE ×3 (01:49→16:44)
[2020-06-24] MEDS: PIPERACILLIN/TAZOB 2.25 GM 2.25 GM in DEXTROSE 5%-WATER - 50 ML IVPB SCH ×3 (02:31→18:19)
[2020-06-24] MEDS ORDERED: INSULIN (NOVOLOG) ASPART 100 UNITS/ML 10ML VIAL ONE (06:35)
[2020-06-24] MEDS: LEVOTHYROXINE NA 25 MCG TABLET (FP) PO SCH (06:40)
[2020-06-24] MEDS: HEPARIN NA (PORCINE) 5,000 UNITS/ML 1ML VIAL SQ SCH ×3 (06:40→21:05)
[2020-06-24] MEDS: INSULIN SLIDING SCALE (NOVOLOG) 1 VIAL SQ SCH ×4 (06:40→21:06)
[2020-06-24] MEDS: SEVELAMER CARBONATE 800 MG TAB (FP) PO SCH ×3 (08:33→18:19)
[2020-06-24] MEDS: LINEZOLID 600 MG TABLET (RESTRICTED TO ID) PO SCH ×2 (09:33→21:08)
[2020-06-24] MEDS: MUPIROCIN 2% TOPICAL OINTMENT 22 GM TUBE TP SCH ×2 (09:33→21:05)
[2020-06-24] MEDS: FERROUS SO4 325 MG TABLET (FP) PO SCH (09:33)
[2020-06-24 13:02] LABS: HEMOGLOBIN 9.2 GM/dL (11.7-16.9); LYMPH % 9.4 % (8-40); MCH 29.9 pg (25.7-33.7); MCHC 32.9 g/dl (32.0-35.9); MEAN CELL VOLUME 90.9 fl (80-96); MEAN PLT VOLUME 7.7 fl (7.5-11.1); PLATELET COUNT 333 K/MM3 (134-434); RBC 3.08 M/mm3 (4.00-5.60)
[2020-06-24 13:03] LABS: BASO % 0.3 % (0-2.0); EOS % 2.4 % (0-4.5); MONO % 8.9 % (3.8-10.2)
[2020-06-24] MEDS ORDERED: SODIUM CHLORIDE 250 ML IV PRN (13:05)
[2020-06-24 13:31] LABS: POTASSIUM 4.2 mmol/L (3.5-5.1)
[2020-06-24 13:34] LABS: CALCIUM 8.6 mg/dL (8.5-10.1)
[2020-06-24 13:35] LABS: ALBUMIN 2.2 g/dl (3.4-5.0); BLOOD UREA NITROGEN 32.1 mg/dL (7-18); MAGNESIUM 1.8 mg/dL (1.8-2.4)
[2020-06-24 13:38] LABS: CREATININE 6.5 mg/dL (0.55-1.3); PHOSPHOROUS 4.2 mg/dL (2.5-4.9)
[2020-06-24 13:39] LABS: BILIRUBIN,TOTAL 0.3 mg/dL (0.2-1)
[2020-06-24] MEDS: ATORVASTATIN CA 80 MG TABLET (FP) PO SCH (21:05)
[2020-06-25] MEDS ORDERED: DEXTROSE 5%-WATER - 50 ML IVPB ONE ×3 (00:45→18:12)
[2020-06-25] MEDS ORDERED: PIPERACILLIN/TAZOBACTAM 2.25 GM VIAL IVPB ONE ×3 (00:45→18:12)
[2020-06-25] MEDS: PIPERACILLIN/TAZOB 2.25 GM 2.25 GM in DEXTROSE 5%-WATER - 50 ML IVPB SCH ×3 (01:00→18:13)
[2020-06-25] MEDS: oxyCODONE HCL 5 MG TABLET PO PRN ×2 (05:49→18:19)
[2020-06-25] MEDS: HEPARIN NA (PORCINE) 5,000 UNITS/ML 1ML VIAL SQ SCH ×3 (05:49→21:29)
[2020-06-25] MEDS: LEVOTHYROXINE NA 25 MCG TABLET (FP) PO SCH (06:27)
[2020-06-25] MEDS: INSULIN SLIDING SCALE (NOVOLOG) 1 VIAL SQ SCH ×4 (06:27→21:30)
[2020-06-25] MEDS ORDERED: INSULIN (NOVOLOG) ASPART 100 UNITS/ML 10ML VIAL ONE (06:50)
[2020-06-25] MEDS: SEVELAMER CARBONATE 800 MG TAB (FP) PO SCH ×3 (08:20→18:13)
[2020-06-25 09:01] LABS: BASO % 0.3 % (0-2.0); EOS % 4.5 % (0-4.5); HEMATOCRIT 27.7 % (35.4-49); HEMOGLOBIN 9.2 GM/dL (11.7-16.9); LYMPH % 14.7 % (8-40); MCH 30.3 pg (25.7-33.7); MCHC 33.2 g/dl (32.0-35.9); MEAN CELL VOLUME 91.3 fl (80-96); MEAN PLT VOLUME 7.7 fl (7.5-11.1); MONO % 8.6 % (3.8-10.2); NEUT % 71.9 % (42.8-82.8); PLATELET COUNT 307 K/MM3 (134-434); RBC 3.04 M/mm3 (4.00-5.60); RDW 14.9 % (11.9-15.9); WHITE BLOOD COUNT 7.7 K/mm3 (4.0-10.0)
[2020-06-25] MEDS ORDERED: EPOETIN ALFA 10,000 UNIT/1 ML VIAL SQ ONE (09:15)
[2020-06-25 09:17] LABS: POTASSIUM 4.2 mmol/L (3.5-5.1)
[2020-06-25 09:29] LABS: BLOOD UREA NITROGEN 40.6 mg/dL (7-18)
[2020-06-25 09:31] LABS: CALCIUM 8.2 mg/dL (8.5-10.1); MAGNESIUM 1.8 mg/dL (1.8-2.4)
[2020-06-25 09:33] LABS: PHOSPHOROUS 5.1 mg/dL (2.5-4.9)
[2020-06-25 09:45] LABS: CREATININE 7.6 mg/dL (0.55-1.3)
[2020-06-25] MEDS: MUPIROCIN 2% TOPICAL OINTMENT 22 GM TUBE TP SCH ×2 (09:45→21:29)
[2020-06-25] MEDS ORDERED: FUROSEMIDE 40 MG TABLET (FP) PO SCH (10:00)
[2020-06-25] MEDS ORDERED: PT OWN MED DRAWER 7, Y5N ONE ×2 (12:59→21:22)
[2020-06-25] MEDS: LINEZOLID 600 MG TABLET (RESTRICTED TO ID) PO SCH ×2 (13:02→21:29)
[2020-06-25] MEDS: FERROUS SO4 325 MG TABLET (FP) PO SCH (13:02)
[2020-06-25] MEDS: ATORVASTATIN CA 80 MG TABLET (FP) PO SCH (21:29)
[2020-06-26] MEDS ORDERED: PIPERACILLIN/TAZOBACTAM 2.25 GM VIAL IVPB ONE ×3 (01:21→17:25)
[2020-06-26] MEDS ORDERED: DEXTROSE 5%-WATER - 50 ML IVPB ONE ×3 (01:21→17:25)
[2020-06-26] MEDS: oxyCODONE HCL 5 MG TABLET PO PRN ×3 (01:38→22:45)
[2020-06-26] MEDS: PIPERACILLIN/TAZOB 2.25 GM 2.25 GM in DEXTROSE 5%-WATER - 50 ML IVPB SCH ×3 (01:39→17:27)
[2020-06-26] MEDS: HEPARIN NA (PORCINE) 5,000 UNITS/ML 1ML VIAL SQ SCH ×3 (06:01→22:02)
[2020-06-26] MEDS: LEVOTHYROXINE NA 25 MCG TABLET (FP) PO SCH (06:01)
[2020-06-26] MEDS: INSULIN SLIDING SCALE (NOVOLOG) 1 VIAL SQ SCH ×4 (06:02→22:03)
[2020-06-26] MEDS: SEVELAMER CARBONATE 800 MG TAB (FP) PO SCH ×3 (08:15→17:27)
[2020-06-26 08:48] LABS: BASO % 0.6 % (0-2.0); EOS % 4.4 % (0-4.5); HEMATOCRIT 29.9 % (35.4-49); HEMOGLOBIN 9.9 GM/dL (11.7-16.9); LYMPH % 13.2 % (8-40); MCH 29.7 pg (25.7-33.7); MEAN CELL VOLUME 90.2 fl (80-96); MEAN PLT VOLUME 7.3 fl (7.5-11.1); MONO % 8.9 % (3.8-10.2); NEUT % 72.9 % (42.8-82.8); PLATELET COUNT 365 K/MM3 (134-434); RBC 3.31 M/mm3 (4.00-5.60); RDW 14.6 % (11.9-15.9); WHITE BLOOD COUNT 8.9 K/mm3 (4.0-10.0)
[2020-06-26 09:11] LABS: POTASSIUM 4.3 mmol/L (3.5-5.1)
[2020-06-26 09:19] LABS: BLOOD UREA NITROGEN 29.7 mg/dL (7-18); CALCIUM 8.5 mg/dL (8.5-10.1)
[2020-06-26 09:20] LABS: MAGNESIUM 1.6 mg/dL (1.8-2.4)
[2020-06-26 09:22] LABS: CREATININE 6.1 mg/dL (0.55-1.3)
[2020-06-26 09:23] LABS: PHOSPHOROUS 4.4 mg/dL (2.5-4.9)
[2020-06-26] MEDS ORDERED: PT OWN MED DRAWER 7, Y5N ONE ×2 (09:38→21:09)
[2020-06-26] MEDS: MUPIROCIN 2% TOPICAL OINTMENT 22 GM TUBE TP SCH ×2 (09:41→22:01)
[2020-06-26] MEDS: FERROUS SO4 325 MG TABLET (FP) PO SCH (09:41)
[2020-06-26] MEDS: LINEZOLID 600 MG TABLET (RESTRICTED TO ID) PO SCH ×2 (09:42→22:02)
[2020-06-26] MEDS ORDERED: FUROSEMIDE 40 MG TABLET (FP) PO SCH (10:00)
[2020-06-26] MEDS ORDERED: MAGNESIUM SULF 50% (8.12 MEQ/2 ML-1 GM VIAL) IVPB ONE (10:37)
[2020-06-26] MEDS ORDERED: INSULIN (NOVOLOG) ASPART 100 UNITS/ML 10ML VIAL ONE (16:43)
[2020-06-26] MEDS: ATORVASTATIN CA 80 MG TABLET (FP) PO SCH (22:03)
[2020-06-26 22:11] LABS: INR 1.28 (0.83-1.09); PROTHROMBIN TIME (PATIENT) 15.4 SEC (9.7-13.0)
[2020-06-26 22:14] LABS: ACTIVATED PTT 33.9 SECONDS (25.2-36.5)
[2020-06-27] MEDS ORDERED: DEXTROSE 5%-WATER - 50 ML IVPB ONE ×3 (01:26→17:50)
[2020-06-27] MEDS ORDERED: PIPERACILLIN/TAZOBACTAM 2.25 GM VIAL IVPB ONE ×3 (01:26→17:50)
[2020-06-27] MEDS: PIPERACILLIN/TAZOB 2.25 GM 2.25 GM in DEXTROSE 5%-WATER - 50 ML IVPB SCH ×3 (01:39→18:00)
[2020-06-27] MEDS: LEVOTHYROXINE NA 25 MCG TABLET (FP) PO SCH (06:18)
[2020-06-27] MEDS: INSULIN SLIDING SCALE (NOVOLOG) 1 VIAL SQ SCH ×4 (06:18→22:28)
[2020-06-27] MEDS: SEVELAMER CARBONATE 800 MG TAB (FP) PO SCH ×3 (09:06→17:03)
[2020-06-27] MEDS: FERROUS SO4 325 MG TABLET (FP) PO SCH (09:08)
[2020-06-27] MEDS: LINEZOLID 600 MG TABLET (RESTRICTED TO ID) PO SCH ×2 (09:08→22:06)
[2020-06-27 10:11] LABS: POTASSIUM 4.4 mmol/L (3.5-5.1)
[2020-06-27 10:16] LABS: BLOOD UREA NITROGEN 41.1 mg/dL (7-18); CALCIUM 8.2 mg/dL (8.5-10.1); MAGNESIUM 2.1 mg/dL (1.8-2.4)
[2020-06-27 10:19] LABS: HEMATOCRIT 26.9 % (35.4-49); HEMOGLOBIN 8.8 GM/dL (11.7-16.9); MCH 29.7 pg (25.7-33.7); MCHC 32.7 g/dl (32.0-35.9); MEAN CELL VOLUME 90.8 fl (80-96); MEAN PLT VOLUME 7.4 fl (7.5-11.1); PHOSPHOROUS 4.8 mg/dL (2.5-4.9); PLATELET COUNT 375 K/MM3 (134-434); RBC 2.96 M/mm3 (4.00-5.60); RDW 14.9 % (11.9-15.9); WHITE BLOOD COUNT 8.4 K/mm3 (4.0-10.0)
[2020-06-27 10:38] LABS: CREATININE 7.6 mg/dL (0.55-1.3)
[2020-06-27] MEDS: MUPIROCIN 2% TOPICAL OINTMENT 22 GM TUBE TP SCH ×2 (11:46→22:07)
[2020-06-27] MEDS ORDERED: LIDOCAINE HCL 1%, 10 MG/ML (20ML VIAL) ONE (13:59)
[2020-06-27] MEDS ORDERED: HEPARIN NA (PORCINE) 5,000 UNITS/ML 1ML VIAL ONE ×3 (13:59→16:52)
[2020-06-27] MEDS ORDERED: MIDAZOLAM HCL 2 MG/2 ML SINGLE DOSE VIAL ONE ×2 (15:27→15:47)
[2020-06-27] MEDS ORDERED: LIDOCAINE HCL 1%, 10 MG/ML (20ML VIAL) NR ONE (15:48)
[2020-06-27] MEDS ORDERED: SODIUM CHLORIDE 1,000 ML IV SCH ×2 (16:00→17:56)
[2020-06-27] MEDS ORDERED: HEPARIN NA (PORCINE) 5,000 UNITS/ML 1ML VIAL SQ ONE (16:01)
[2020-06-27] MEDS: CLOPIDOGREL BISULFATE 75 MG TABLET (FP) PO SCH (17:40)
[2020-06-27] MEDS ORDERED: SODIUM CHLORIDE 250 ML IV PRN ×2 (17:50→17:56)
[2020-06-27] MEDS ORDERED: ACETAMINOPHEN 650 MG/20.3 ML ORAL SOLUTION (CUPS) PO PRN (17:56)
[2020-06-27] MEDS: ATORVASTATIN CA 80 MG TABLET (FP) PO SCH (22:27)
[2020-06-27] MEDS: HEPARIN NA (PORCINE) 5,000 UNITS/ML 1ML VIAL SQ SCH (22:27)
[2020-06-28] MEDS: oxyCODONE HCL 5 MG TABLET PO PRN ×3 (00:14→15:52)
[2020-06-28] MEDS ORDERED: PIPERACILLIN/TAZOBACTAM 2.25 GM VIAL IVPB ONE ×3 (02:19→17:05)
[2020-06-28] MEDS ORDERED: DEXTROSE 5%-WATER - 50 ML IVPB ONE ×3 (02:19→17:05)
[2020-06-28] MEDS: PIPERACILLIN/TAZOB 2.25 GM 2.25 GM in DEXTROSE 5%-WATER - 50 ML IVPB SCH ×3 (02:39→17:10)
[2020-06-28] MEDS: HEPARIN NA (PORCINE) 5,000 UNITS/ML 1ML VIAL SQ SCH ×3 (06:27→22:05)
[2020-06-28] MEDS: INSULIN SLIDING SCALE (NOVOLOG) 1 VIAL SQ SCH ×4 (06:28→22:14)
[2020-06-28] MEDS: LEVOTHYROXINE NA 25 MCG TABLET (FP) PO SCH (06:29)
[2020-06-28] MEDS ORDERED: EPOETIN ALFA-EPBX 10,000 UNIT/ML VIAL IVPUSH ONE (08:15)
[2020-06-28] MEDS: SEVELAMER CARBONATE 800 MG TAB (FP) PO SCH ×3 (08:18→17:09)
[2020-06-28 08:38] LABS: HEMATOCRIT 26.6 % (35.4-49); HEMOGLOBIN 8.7 GM/dL (11.7-16.9); MCH 29.5 pg (25.7-33.7); MCHC 32.6 g/dl (32.0-35.9); MEAN CELL VOLUME 90.5 fl (80-96); MEAN PLT VOLUME 7.4 fl (7.5-11.1); PLATELET COUNT 350 K/MM3 (134-434); RBC 2.94 M/mm3 (4.00-5.60); RDW 15.1 % (11.9-15.9); WHITE BLOOD COUNT 8.8 K/mm3 (4.0-10.0)
[2020-06-28 08:55] LABS: POTASSIUM 4.7 mmol/L (3.5-5.1)
[2020-06-28 08:57] LABS: BLOOD UREA NITROGEN 46.8 mg/dL (7-18); CALCIUM 8.1 mg/dL (8.5-10.1); MAGNESIUM 1.9 mg/dL (1.8-2.4)
[2020-06-28 09:01] LABS: PHOSPHOROUS 5.6 mg/dL (2.5-4.9)
[2020-06-28] MEDS: FUROSEMIDE 40 MG TABLET (FP) PO SCH ×2 (09:20→11:29)
[2020-06-28 11:07] LABS: CREATININE 8.4 mg/dL (0.55-1.3)
[2020-06-28] MEDS ORDERED: PT OWN MED DRAWER 7, Y5N ONE ×3 (11:24→21:26)
[2020-06-28] MEDS: CLOPIDOGREL BISULFATE 75 MG TABLET (FP) PO SCH (11:30)
[2020-06-28] MEDS: FERROUS SO4 325 MG TABLET (FP) PO SCH (11:31)
[2020-06-28] MEDS: LINEZOLID 600 MG TABLET (RESTRICTED TO ID) PO SCH ×2 (11:31→22:11)
[2020-06-28] MEDS ORDERED: BISACODYL 5 MG TABLET.DR (FP) PO ONE (13:01)
[2020-06-28] MEDS ORDERED: DOCUSATE SODIUM 100 MG CAPSULE (FP) PO PRN (13:04)
[2020-06-28] MEDS: MUPIROCIN 2% TOPICAL OINTMENT 22 GM TUBE TP SCH ×2 (15:50→22:15)
[2020-06-28] MEDS: ATORVASTATIN CA 80 MG TABLET (FP) PO SCH (22:05)
[2020-06-29] MEDS: oxyCODONE HCL 5 MG TABLET PO PRN ×3 (00:38→18:33)
[2020-06-29] MEDS ORDERED: PIPERACILLIN/TAZOBACTAM 2.25 GM VIAL IVPB ONE ×3 (03:03→17:16)
[2020-06-29] MEDS ORDERED: DEXTROSE 5%-WATER - 50 ML IVPB ONE ×3 (03:03→17:17)
[2020-06-29] MEDS: PIPERACILLIN/TAZOB 2.25 GM 2.25 GM in DEXTROSE 5%-WATER - 50 ML IVPB SCH ×3 (03:10→17:20)
[2020-06-29] MEDS: INSULIN SLIDING SCALE (NOVOLOG) 1 VIAL SQ SCH ×4 (06:03→23:01)
[2020-06-29] MEDS: HEPARIN NA (PORCINE) 5,000 UNITS/ML 1ML VIAL SQ SCH ×3 (06:04→22:59)
[2020-06-29] MEDS: LEVOTHYROXINE NA 25 MCG TABLET (FP) PO SCH (06:04)
[2020-06-29] MEDS ORDERED: PT OWN MED DRAWER 7, Y5N ONE (09:10)
[2020-06-29] MEDS: SEVELAMER CARBONATE 800 MG TAB (FP) PO SCH ×3 (09:16→17:19)
[2020-06-29] MEDS: FERROUS SO4 325 MG TABLET (FP) PO SCH (09:17)
[2020-06-29] MEDS: CLOPIDOGREL BISULFATE 75 MG TABLET (FP) PO SCH (09:17)
[2020-06-29] MEDS: LINEZOLID 600 MG TABLET (RESTRICTED TO ID) PO SCH ×2 (09:18→23:01)
[2020-06-29] MEDS: FUROSEMIDE 40 MG TABLET (FP) PO SCH (09:20)
[2020-06-29 11:51] LABS: HEMATOCRIT 27.4 % (35.4-49); HEMOGLOBIN 8.8 GM/dL (11.7-16.9); MCHC 32.1 g/dl (32.0-35.9); MEAN CELL VOLUME 90.5 fl (80-96); PLATELET COUNT 316 K/MM3 (134-434); RBC 3.03 M/mm3 (4.00-5.60); RDW 14.9 % (11.9-15.9); WHITE BLOOD COUNT 8.5 K/mm3 (4.0-10.0)
[2020-06-29] MEDS: MUPIROCIN 2% TOPICAL OINTMENT 22 GM TUBE TP SCH (13:53)
[2020-06-29] MEDS: DOCUSATE SODIUM 100 MG CAPSULE (FP) PO SCH ×3 (13:55→23:00)
[2020-06-29] MEDS: ATORVASTATIN CA 80 MG TABLET (FP) PO SCH (23:00)
[2020-06-30] MEDS: oxyCODONE HCL 5 MG TABLET PO PRN ×4 (00:44→21:48)
[2020-06-30 01:20] LABS: BASO % 0.5 % (0-2.0); EOS % 5.1 % (0-4.5); HEMATOCRIT 25.3 % (35.4-49); HEMOGLOBIN 8.2 GM/dL (11.7-16.9); MCH 29.3 pg (25.7-33.7); MCHC 32.5 g/dl (32.0-35.9); MEAN CELL VOLUME 90.2 fl (80-96); MEAN PLT VOLUME 7.1 fl (7.5-11.1); MONO % 9.5 % (3.8-10.2); NEUT % 69.9 % (42.8-82.8); PLATELET COUNT 299 K/MM3 (134-434); RBC 2.81 M/mm3 (4.00-5.60); RDW 15.1 % (11.9-15.9)
[2020-06-30] MEDS ORDERED: DEXTROSE 5%-WATER - 50 ML IVPB ONE ×3 (02:15→16:48)
[2020-06-30] MEDS ORDERED: PIPERACILLIN/TAZOBACTAM 2.25 GM VIAL IVPB ONE ×3 (02:15→16:48)
[2020-06-30] MEDS: PIPERACILLIN/TAZOB 2.25 GM 2.25 GM in DEXTROSE 5%-WATER - 50 ML IVPB SCH ×3 (02:17→17:04)
[2020-06-30] MEDS: INSULIN SLIDING SCALE (NOVOLOG) 1 VIAL SQ SCH ×4 (06:45→21:50)
[2020-06-30] MEDS: HEPARIN NA (PORCINE) 5,000 UNITS/ML 1ML VIAL SQ SCH ×2 (06:46→17:30)
[2020-06-30] MEDS: DOCUSATE SODIUM 100 MG CAPSULE (FP) PO SCH ×3 (06:46→21:50)
[2020-06-30] MEDS: LEVOTHYROXINE NA 25 MCG TABLET (FP) PO SCH (06:46)
[2020-06-30] MEDS ORDERED: EPOETIN ALFA 10,000 UNIT/1 ML VIAL IVPUSH ONE (08:00)
[2020-06-30 09:32] LABS: HEMOGLOBIN 7.5 GM/dL (11.7-16.9); MCH 29.5 pg (25.7-33.7); MCHC 32.7 g/dl (32.0-35.9); MEAN CELL VOLUME 90.4 fl (80-96); MEAN PLT VOLUME 7.1 fl (7.5-11.1); PLATELET COUNT 316 K/MM3 (134-434); RBC 2.54 M/mm3 (4.00-5.60)
[2020-06-30 09:40] LABS: INR 1.27 (0.83-1.09); PROTHROMBIN TIME (PATIENT) 15.3 SEC (9.7-13.0)
[2020-06-30 09:51] LABS: POTASSIUM 4.2 mmol/L (3.5-5.1)
[2020-06-30 09:52] LABS: CALCIUM 7.9 mg/dL (8.5-10.1)
[2020-06-30 09:53] LABS: BLOOD UREA NITROGEN 38.7 mg/dL (7-18); MAGNESIUM 1.8 mg/dL (1.8-2.4)
[2020-06-30 09:56] LABS: PHOSPHOROUS 5.4 mg/dL (2.5-4.9)
[2020-06-30 10:17] LABS: CREATININE 7.9 mg/dL (0.55-1.3)
[2020-06-30] MEDS ORDERED: EPOETIN ALFA-EPBX 10,000 UNIT/ML VIAL IVPUSH ONE (10:58)
[2020-06-30] MEDS: MUPIROCIN 2% TOPICAL OINTMENT 22 GM TUBE TP SCH ×2 (12:55→21:49)
[2020-06-30] MEDS: CLOPIDOGREL BISULFATE 75 MG TABLET (FP) PO SCH (12:55)
[2020-06-30] MEDS: SEVELAMER CARBONATE 800 MG TAB (FP) PO SCH ×3 (12:56→17:04)
[2020-06-30] MEDS: FERROUS SO4 325 MG TABLET (FP) PO SCH (12:56)
[2020-06-30] MEDS: LINEZOLID 600 MG TABLET (RESTRICTED TO ID) PO SCH ×2 (12:58→21:50)
[2020-06-30] MEDS ORDERED: PT OWN MED DRAWER 7, Y5N ONE (21:41)
[2020-06-30] MEDS: ATORVASTATIN CA 80 MG TABLET (FP) PO SCH (21:50)
[2020-07-01] MEDS ORDERED: PIPERACILLIN/TAZOBACTAM 2.25 GM VIAL IVPB ONE ×2 (01:15→17:05)
[2020-07-01] MEDS ORDERED: DEXTROSE 5%-WATER - 50 ML IVPB ONE ×2 (01:16→17:05)
[2020-07-01] MEDS: PIPERACILLIN/TAZOB 2.25 GM 2.25 GM in DEXTROSE 5%-WATER - 50 ML IVPB SCH ×3 (02:01→17:05)
[2020-07-01] MEDS ORDERED: ACETAMINOPHEN 325 MG TABLET (FP) PO ONE (02:36)
[2020-07-01] MEDS: oxyCODONE HCL 5 MG TABLET PO PRN ×3 (04:17→17:14)
[2020-07-01] MEDS: LEVOTHYROXINE NA 25 MCG TABLET (FP) PO SCH (06:54)
[2020-07-01] MEDS: INSULIN SLIDING SCALE (NOVOLOG) 1 VIAL SQ SCH ×5 (06:55→21:34)
[2020-07-01] MEDS: DOCUSATE SODIUM 100 MG CAPSULE (FP) PO SCH ×3 (06:55→21:34)
[2020-07-01] MEDS ORDERED: LIDOCAINE HCL 2% (20ML MULTI-DOSE VIAL) ONE (07:52)
[2020-07-01] MEDS ORDERED: MIDAZOLAM HCL 2 MG/2 ML SINGLE DOSE VIAL ONE (08:04)
[2020-07-01] MEDS ORDERED: PROPOFOL 20 ML ONE (08:05)
[2020-07-01] MEDS ORDERED: SUCCINYLCHOLINE CHLORIDE 200 MG/10 ML SYRINGE ONE (08:05)
[2020-07-01] MEDS ORDERED: LIDOCAINE HCL/PF 2% SDV 5ML VIAL ONE (08:24)
[2020-07-01] MEDS ORDERED: LIDOCAINE HCL 1%, 10 MG/ML (20ML VIAL) INF ONE (08:27)
[2020-07-01] MEDS ORDERED: BENZOIN/ALOE VERA/STORAX/TOLU 58 ML BOTTLE ONE (09:36)
[2020-07-01] MEDS ORDERED: SODIUM CHLORIDE 1,000 ML IV SCH (10:30)
[2020-07-01] MEDS ORDERED: ACETAMINOPHEN 650 MG/20.3 ML ORAL SOLUTION (CUPS) PO PRN (10:34)
[2020-07-01] MEDS ORDERED: SODIUM CHLORIDE 250 ML IV PRN ×2 (10:34→15:17)
[2020-07-01] MEDS ORDERED: LINEZOLID 600 MG TABLET (RESTRICTED TO ID) PO SCH ×2 (11:45→22:00)
[2020-07-01] MEDS: FUROSEMIDE 40 MG TABLET (FP) PO SCH ×2 (12:15→15:00)
[2020-07-01] MEDS: FERROUS SO4 325 MG TABLET (FP) PO SCH ×2 (12:15→15:00)
[2020-07-01] MEDS: CLOPIDOGREL BISULFATE 75 MG TABLET (FP) PO SCH ×2 (12:15→15:01)
[2020-07-01] MEDS: SEVELAMER CARBONATE 800 MG TAB (FP) PO SCH ×3 (12:16→17:05)
[2020-07-01 13:13] LABS: BASO % 0.6 % (0-2.0); EOS % 4.6 % (0-4.5); HEMOGLOBIN 8.4 GM/dL (11.7-16.9); LYMPH % 21.1 % (8-40); MCH 29.5 pg (25.7-33.7); MCHC 32.5 g/dl (32.0-35.9); MONO % 9.1 % (3.8-10.2); NEUT % 64.6 % (42.8-82.8); PLATELET COUNT 363 K/MM3 (134-434); RBC 2.86 M/mm3 (4.00-5.60); RDW 15.1 % (11.9-15.9); WHITE BLOOD COUNT 8.1 K/mm3 (4.0-10.0)
[2020-07-01 13:43] LABS: POTASSIUM 4.4 mmol/L (3.5-5.1)
[2020-07-01 13:45] LABS: CALCIUM 8.6 mg/dL (8.5-10.1)
[2020-07-01 13:46] LABS: ALBUMIN 2.3 g/dl (3.4-5.0); BLOOD UREA NITROGEN 30.6 mg/dL (7-18)
[2020-07-01 13:49] LABS: CREATININE 6.4 mg/dL (0.55-1.3); PHOSPHOROUS 5.1 mg/dL (2.5-4.9)
[2020-07-01 13:50] LABS: TOT PROT 7.1 g/dl (6.4-8.2)
[2020-07-01 13:52] LABS: BILIRUBIN,TOTAL 0.8 mg/dL (0.2-1)
[2020-07-01] MEDS: LINEZOLID 600 MG TABLET (RESTRICTED TO ID) PO SCH (15:00)
[2020-07-01] MEDS: MUPIROCIN 2% TOPICAL OINTMENT 22 GM TUBE TP SCH (15:01)
[2020-07-01] MEDS ORDERED: VANCOMYCIN 1 GRAM (PRE-DOCKED) 1,000 MG/250 ML BAG IVPB ONE (17:44)
[2020-07-01] MEDS: ATORVASTATIN CA 80 MG TABLET (FP) PO SCH (21:34)
[2020-07-02] MEDS: oxyCODONE HCL 5 MG TABLET PO PRN ×4 (00:35→22:48)
[2020-07-02] MEDS ORDERED: PIPERACILLIN/TAZOBACTAM 2.25 GM VIAL IVPB ONE ×2 (01:48→16:53)
[2020-07-02] MEDS ORDERED: DEXTROSE 5%-WATER - 50 ML IVPB ONE ×2 (01:48→16:53)
[2020-07-02] MEDS: PIPERACILLIN/TAZOB 2.25 GM 2.25 GM in DEXTROSE 5%-WATER - 50 ML IVPB SCH ×3 (01:53→17:29)
[2020-07-02] MEDS: DOCUSATE SODIUM 100 MG CAPSULE (FP) PO SCH ×3 (06:06→22:49)
[2020-07-02] MEDS: LEVOTHYROXINE NA 25 MCG TABLET (FP) PO SCH (06:06)
[2020-07-02] MEDS: INSULIN SLIDING SCALE (NOVOLOG) 1 VIAL SQ SCH ×4 (06:07→22:49)
[2020-07-02] MEDS: SEVELAMER CARBONATE 800 MG TAB (FP) PO SCH ×3 (09:31→17:29)
[2020-07-02] MEDS ORDERED: EPOETIN ALFA-EPBX 20,000 UNIT/ML VIAL IVPUSH ONE (09:45)
[2020-07-02] MEDS ORDERED: HEPARIN NA (PORCINE) 5,000 UNITS/ML 1ML VIAL IVPUSH ONE (09:45)
[2020-07-02] MEDS ORDERED: FERROUS SO4 325 MG TABLET (FP) PO SCH (10:00)
[2020-07-02] MEDS ORDERED: CLOPIDOGREL BISULFATE 75 MG TABLET (FP) PO SCH (10:00)
[2020-07-02 10:43] LABS: BASO % 0.4 % (0-2.0); EOS % 3.9 % (0-4.5); HEMOGLOBIN 7.5 GM/dL (11.7-16.9); LYMPH % 11.5 % (8-40); MCH 29.6 pg (25.7-33.7); MCHC 32.9 g/dl (32.0-35.9); MEAN CELL VOLUME 89.9 fl (80-96); MEAN PLT VOLUME 6.8 fl (7.5-11.1); MONO % 9.1 % (3.8-10.2); NEUT % 75.1 % (42.8-82.8); PLATELET COUNT 358 K/MM3 (134-434); RBC 2.55 M/mm3 (4.00-5.60); RDW 15.1 % (11.9-15.9); WHITE BLOOD COUNT 9.7 K/mm3 (4.0-10.0)
[2020-07-02 11:52] LABS: POTASSIUM 3.9 mmol/L (3.5-5.1)
[2020-07-02 11:58] LABS: ALBUMIN 2.1 g/dl (3.4-5.0); BLOOD UREA NITROGEN 29.3 mg/dL (7-18); CALCIUM 8.2 mg/dL (8.5-10.1); MAGNESIUM 1.9 mg/dL (1.8-2.4)
[2020-07-02 12:01] LABS: CREATININE 5.3 mg/dL (0.55-1.3)
[2020-07-02 12:02] LABS: BILIRUBIN,TOTAL 0.2 mg/dL (0.2-1); TOT PROT 6.8 g/dl (6.4-8.2)
[2020-07-02] MEDS: HEPARIN NA (PORCINE) 5,000 UNITS/ML 1ML VIAL SQ SCH ×2 (15:34→22:49)
[2020-07-02] MEDS: CLOPIDOGREL BISULFATE 75 MG TABLET (FP) PO SCH (15:35)
[2020-07-02] MEDS: FERROUS SO4 325 MG TABLET (FP) PO SCH (15:35)
[2020-07-02] MEDS ORDERED: VANCOMYCIN 1 GRAM (PRE-DOCKED) 1,000 MG/250 ML BAG IVPB ONE (16:42)
[2020-07-02 17:20] LABS: HEMATOCRIT 23.9 % (35.4-49); HEMOGLOBIN 7.8 GM/dL (11.7-16.9); MCH 29.6 pg (25.7-33.7); MCHC 32.5 g/dl (32.0-35.9); MEAN CELL VOLUME 90.9 fl (80-96); MEAN PLT VOLUME 7.6 fl (7.5-11.1); RBC 2.63 M/mm3 (4.00-5.60); RDW 14.9 % (11.9-15.9); WHITE BLOOD COUNT 13.1 K/mm3 (4.0-10.0)
[2020-07-02 18:03] LABS: PLATELET COUNT 361 K/MM3 (134-434)
[2020-07-02] MEDS: ATORVASTATIN CA 80 MG TABLET (FP) PO SCH (22:48)
[2020-07-03] MEDS ORDERED: DEXTROSE 5%-WATER - 50 ML IVPB ONE ×3 (01:14→17:17)
[2020-07-03] MEDS ORDERED: PIPERACILLIN/TAZOBACTAM 2.25 GM VIAL IVPB ONE ×3 (01:14→17:16)
[2020-07-03] MEDS: PIPERACILLIN/TAZOB 2.25 GM 2.25 GM in DEXTROSE 5%-WATER - 50 ML IVPB SCH ×3 (02:06→17:28)
[2020-07-03] MEDS: LEVOTHYROXINE NA 25 MCG TABLET (FP) PO SCH (06:35)
[2020-07-03] MEDS: HEPARIN NA (PORCINE) 5,000 UNITS/ML 1ML VIAL SQ SCH ×3 (06:35→22:06)
[2020-07-03] MEDS: oxyCODONE HCL 5 MG TABLET PO PRN ×3 (06:36→22:05)
[2020-07-03] MEDS: DOCUSATE SODIUM 100 MG CAPSULE (FP) PO SCH ×3 (06:36→22:06)
[2020-07-03] MEDS: INSULIN SLIDING SCALE (NOVOLOG) 1 VIAL SQ SCH ×4 (06:39→22:11)
[2020-07-03] MEDS: SEVELAMER CARBONATE 800 MG TAB (FP) PO SCH ×3 (08:37→17:28)
[2020-07-03 09:30] LABS: BASO % 0.5 % (0-2.0); EOS % 3.7 % (0-4.5); HEMATOCRIT 23.5 % (35.4-49); HEMOGLOBIN 7.7 GM/dL (11.7-16.9); LYMPH % 14.3 % (8-40); MCH 29.5 pg (25.7-33.7); MCHC 32.8 g/dl (32.0-35.9); MEAN CELL VOLUME 90.1 fl (80-96); MEAN PLT VOLUME 6.8 fl (7.5-11.1); MONO % 9.3 % (3.8-10.2); NEUT % 72.2 % (42.8-82.8); PLATELET COUNT 342 K/MM3 (134-434); RBC 2.61 M/mm3 (4.00-5.60); RDW 15.3 % (11.9-15.9)
[2020-07-03 09:50] LABS: POTASSIUM 4.1 mmol/L (3.5-5.1)
[2020-07-03] MEDS: CLOPIDOGREL BISULFATE 75 MG TABLET (FP) PO SCH (10:01)
[2020-07-03] MEDS: FERROUS SO4 325 MG TABLET (FP) PO SCH (10:02)
[2020-07-03] MEDS: FUROSEMIDE 40 MG TABLET (FP) PO SCH (10:08)
[2020-07-03 10:17] LABS: BILIRUBIN,TOTAL 0.3 mg/dL (0.2-1)
[2020-07-03 10:18] LABS: BLOOD UREA NITROGEN 32.2 mg/dL (7-18); CALCIUM 8.6 mg/dL (8.5-10.1); TOT PROT 6.5 g/dl (6.4-8.2)
[2020-07-03 10:20] LABS: CREATININE 5.7 mg/dL (0.55-1.3)
[2020-07-03 10:22] LABS: PHOSPHOROUS 4.8 mg/dL (2.5-4.9)
[2020-07-03] MEDS ORDERED: INSULIN (NOVOLOG) ASPART 100 UNITS/ML 10ML VIAL ONE (18:17)
[2020-07-03] MEDS: ATORVASTATIN CA 80 MG TABLET (FP) PO SCH (22:05)
[2020-07-04] MEDS ORDERED: PIPERACILLIN/TAZOBACTAM 2.25 GM VIAL IVPB ONE ×3 (01:00→16:05)
[2020-07-04] MEDS ORDERED: DEXTROSE 5%-WATER - 50 ML IVPB ONE ×3 (01:00→16:05)
[2020-07-04] MEDS: PIPERACILLIN/TAZOB 2.25 GM 2.25 GM in DEXTROSE 5%-WATER - 50 ML IVPB SCH ×3 (01:36→17:38)
[2020-07-04] MEDS: oxyCODONE HCL 5 MG TABLET PO PRN ×2 (05:58→16:02)
[2020-07-04] MEDS: HEPARIN NA (PORCINE) 5,000 UNITS/ML 1ML VIAL SQ SCH ×3 (05:59→22:13)
[2020-07-04] MEDS: LEVOTHYROXINE NA 25 MCG TABLET (FP) PO SCH (05:59)
[2020-07-04] MEDS: DOCUSATE SODIUM 100 MG CAPSULE (FP) PO SCH ×3 (06:00→22:14)
[2020-07-04] MEDS: INSULIN SLIDING SCALE (NOVOLOG) 1 VIAL SQ SCH ×4 (06:02→22:17)
[2020-07-04] MEDS: SEVELAMER CARBONATE 800 MG TAB (FP) PO SCH ×3 (07:53→17:38)
[2020-07-04] MEDS ORDERED: SODIUM CHLORIDE 250 ML IV PRN (09:25)
[2020-07-04 09:50] LABS: BASO % 0.5 % (0-2.0); EOS % 4.2 % (0-4.5); HEMATOCRIT 22.7 % (35.4-49); HEMOGLOBIN 7.6 GM/dL (11.7-16.9); LYMPH % 15.1 % (8-40); MCH 29.9 pg (25.7-33.7); MCHC 33.4 g/dl (32.0-35.9); MEAN CELL VOLUME 89.5 fl (80-96); MEAN PLT VOLUME 6.7 fl (7.5-11.1); MONO % 8.6 % (3.8-10.2); NEUT % 71.6 % (42.8-82.8); PLATELET COUNT 376 K/MM3 (134-434); RBC 2.54 M/mm3 (4.00-5.60); RDW 15.4 % (11.9-15.9); WHITE BLOOD COUNT 9.4 K/mm3 (4.0-10.0)
[2020-07-04 10:15] LABS: POTASSIUM 3.9 mmol/L (3.5-5.1)
[2020-07-04 10:16] LABS: BLOOD UREA NITROGEN 41.7 mg/dL (7-18); CALCIUM 8.4 mg/dL (8.5-10.1)
[2020-07-04 10:19] LABS: CREATININE 6.9 mg/dL (0.55-1.3); PHOSPHOROUS 5.1 mg/dL (2.5-4.9)
[2020-07-04] MEDS ORDERED: HEPARIN NA (PORCINE) 5,000 UNITS/ML 1ML VIAL IVPUSH ONE (11:00)
[2020-07-04] MEDS: FERROUS SO4 325 MG TABLET (FP) PO SCH (12:43)
[2020-07-04] MEDS: CLOPIDOGREL BISULFATE 75 MG TABLET (FP) PO SCH (12:43)
[2020-07-04] MEDS ORDERED: EPOETIN ALFA-EPBX 20,000 UNIT/ML VIAL SQ ONE (13:00)
[2020-07-04] MEDS: ATORVASTATIN CA 80 MG TABLET (FP) PO SCH (22:14)
[2020-07-05] MEDS ORDERED: DEXTROSE 5%-WATER - 50 ML IVPB ONE ×3 (02:11→16:51)
[2020-07-05] MEDS ORDERED: PIPERACILLIN/TAZOBACTAM 2.25 GM VIAL IVPB ONE ×3 (02:11→16:51)
[2020-07-05] MEDS: oxyCODONE HCL 5 MG TABLET PO PRN ×4 (02:16→23:42)
[2020-07-05] MEDS: PIPERACILLIN/TAZOB 2.25 GM 2.25 GM in DEXTROSE 5%-WATER - 50 ML IVPB SCH ×3 (02:17→17:02)
[2020-07-05] MEDS: DOCUSATE SODIUM 100 MG CAPSULE (FP) PO SCH ×3 (06:29→22:48)
[2020-07-05] MEDS: INSULIN SLIDING SCALE (NOVOLOG) 1 VIAL SQ SCH ×4 (06:30→22:48)
[2020-07-05] MEDS: HEPARIN NA (PORCINE) 5,000 UNITS/ML 1ML VIAL SQ SCH ×3 (06:30→22:48)
[2020-07-05] MEDS: LEVOTHYROXINE NA 25 MCG TABLET (FP) PO SCH (06:32)
[2020-07-05] MEDS ORDERED: INSULIN (NOVOLOG) ASPART 100 UNITS/ML 10ML VIAL ONE (07:04)
[2020-07-05] MEDS ORDERED: PT OWN MED DRAWER 7, Y5N ONE (08:02)
[2020-07-05 10:23] LABS: HEMATOCRIT 23.6 % (35.4-49); HEMOGLOBIN 7.6 GM/dL (11.7-16.9); MCH 29.3 pg (25.7-33.7); MCHC 32.2 g/dl (32.0-35.9); MEAN CELL VOLUME 90.9 fl (80-96); MEAN PLT VOLUME 6.7 fl (7.5-11.1); PLATELET COUNT 404 K/MM3 (134-434); RBC 2.59 M/mm3 (4.00-5.60); RDW 15.2 % (11.9-15.9); WHITE BLOOD COUNT 9.8 K/mm3 (4.0-10.0)
[2020-07-05] MEDS: FUROSEMIDE 40 MG TABLET (FP) PO SCH (10:23)
[2020-07-05] MEDS: CLOPIDOGREL BISULFATE 75 MG TABLET (FP) PO SCH (10:23)
[2020-07-05] MEDS: FERROUS SO4 325 MG TABLET (FP) PO SCH (10:23)
[2020-07-05] MEDS: SEVELAMER CARBONATE 800 MG TAB (FP) PO SCH ×3 (10:24→16:45)
[2020-07-05 10:46] LABS: POTASSIUM 4.2 mmol/L (3.5-5.1)
[2020-07-05 10:49] LABS: BLOOD UREA NITROGEN 35.2 mg/dL (7-18); CALCIUM 8.9 mg/dL (8.5-10.1)
[2020-07-05 10:51] LABS: MAGNESIUM 2.1 mg/dL (1.8-2.4)
[2020-07-05 10:54] LABS: CREATININE 5.7 mg/dL (0.55-1.3); PHOSPHOROUS 4.1 mg/dL (2.5-4.9)
[2020-07-05] MEDS: ATORVASTATIN CA 80 MG TABLET (FP) PO SCH (22:48)
[2020-07-06] MEDS ORDERED: DEXTROSE 5%-WATER - 50 ML IVPB ONE ×3 (02:58→17:47)
[2020-07-06] MEDS ORDERED: PIPERACILLIN/TAZOBACTAM 2.25 GM VIAL IVPB ONE ×3 (02:58→17:47)
[2020-07-06] MEDS: PIPERACILLIN/TAZOB 2.25 GM 2.25 GM in DEXTROSE 5%-WATER - 50 ML IVPB SCH ×3 (03:00→18:45)
[2020-07-06] MEDS: INSULIN SLIDING SCALE (NOVOLOG) 1 VIAL SQ SCH ×4 (06:16→21:48)
[2020-07-06] MEDS: DOCUSATE SODIUM 100 MG CAPSULE (FP) PO SCH ×3 (06:16→21:50)
[2020-07-06] MEDS: HEPARIN NA (PORCINE) 5,000 UNITS/ML 1ML VIAL SQ SCH ×3 (06:16→21:49)
[2020-07-06] MEDS: LEVOTHYROXINE NA 25 MCG TABLET (FP) PO SCH (06:16)
[2020-07-06 09:47] LABS: BASO % 0.5 % (0-2.0); EOS % 4.6 % (0-4.5); HEMATOCRIT 22.2 % (35.4-49); HEMOGLOBIN 7.2 GM/dL (11.7-16.9); MCH 29.3 pg (25.7-33.7); MCHC 32.7 g/dl (32.0-35.9); MEAN CELL VOLUME 89.8 fl (80-96); MEAN PLT VOLUME 6.9 fl (7.5-11.1); MONO % 7.7 % (3.8-10.2); NEUT % 68.2 % (42.8-82.8); PLATELET COUNT 357 K/MM3 (134-434); RBC 2.47 M/mm3 (4.00-5.60); RDW 15.5 % (11.9-15.9); WHITE BLOOD COUNT 8.4 K/mm3 (4.0-10.0)
[2020-07-06 09:52] LABS: POTASSIUM 4.2 mmol/L (3.5-5.1)
[2020-07-06] MEDS: SEVELAMER CARBONATE 800 MG TAB (FP) PO SCH ×3 (09:54→16:52)
[2020-07-06] MEDS: CLOPIDOGREL BISULFATE 75 MG TABLET (FP) PO SCH (09:55)
[2020-07-06] MEDS: oxyCODONE HCL 5 MG TABLET PO PRN ×2 (09:55→21:50)
[2020-07-06] MEDS: FERROUS SO4 325 MG TABLET (FP) PO SCH (09:55)
[2020-07-06 09:59] LABS: CALCIUM 8.4 mg/dL (8.5-10.1)
[2020-07-06] MEDS: FUROSEMIDE 40 MG TABLET (FP) PO SCH (09:59)
[2020-07-06 10:00] LABS: BLOOD UREA NITROGEN 46.3 mg/dL (7-18); MAGNESIUM 1.9 mg/dL (1.8-2.4)
[2020-07-06 10:04] LABS: PHOSPHOROUS 4.6 mg/dL (2.5-4.9); TOT PROT 6.5 g/dl (6.4-8.2)
[2020-07-06 10:06] LABS: BILIRUBIN,TOTAL 1.3 mg/dL (0.2-1)
[2020-07-06] MEDS ORDERED: INSULIN (NOVOLOG) ASPART 100 UNITS/ML 10ML VIAL ONE (21:43)
[2020-07-06] MEDS: ATORVASTATIN CA 80 MG TABLET (FP) PO SCH (21:50)
[2020-07-07] MEDS ORDERED: PIPERACILLIN/TAZOBACTAM 2.25 GM VIAL IVPB ONE ×3 (02:59→17:15)
[2020-07-07] MEDS ORDERED: DEXTROSE 5%-WATER - 50 ML IVPB ONE ×3 (03:00→17:16)
[2020-07-07] MEDS: PIPERACILLIN/TAZOB 2.25 GM 2.25 GM in DEXTROSE 5%-WATER - 50 ML IVPB SCH ×3 (03:02→17:17)
[2020-07-07] MEDS: oxyCODONE HCL 5 MG TABLET PO PRN ×3 (06:40→22:16)
[2020-07-07] MEDS: INSULIN SLIDING SCALE (NOVOLOG) 1 VIAL SQ SCH ×4 (06:41→22:17)
[2020-07-07] MEDS: LEVOTHYROXINE NA 25 MCG TABLET (FP) PO SCH (06:41)
[2020-07-07] MEDS: DOCUSATE SODIUM 100 MG CAPSULE (FP) PO SCH ×3 (06:41→22:17)
[2020-07-07] MEDS: HEPARIN NA (PORCINE) 5,000 UNITS/ML 1ML VIAL SQ SCH ×2 (06:41→13:07)
[2020-07-07] MEDS ORDERED: HEPARIN NA (PORCINE) 5,000 UNITS/ML 1ML VIAL IVPUSH ONE (08:00)
[2020-07-07] MEDS: SEVELAMER CARBONATE 800 MG TAB (FP) PO SCH ×3 (08:00→17:17)
[2020-07-07] MEDS ORDERED: SODIUM CHLORIDE 250 ML IV PRN (08:00)
[2020-07-07] MEDS ORDERED: EPOETIN ALFA-EPBX 20,000 UNIT/ML VIAL SQ ONE (08:00)
[2020-07-07] MEDS: FERROUS SO4 325 MG TABLET (FP) PO SCH (13:06)
[2020-07-07] MEDS: CLOPIDOGREL BISULFATE 75 MG TABLET (FP) PO SCH (13:06)
[2020-07-07] MEDS: ATORVASTATIN CA 80 MG TABLET (FP) PO SCH (22:17)
[2020-07-08] MEDS ORDERED: DEXTROSE 5%-WATER - 50 ML IVPB ONE ×3 (02:20→17:46)
[2020-07-08] MEDS ORDERED: PIPERACILLIN/TAZOBACTAM 2.25 GM VIAL IVPB ONE ×3 (02:20→17:45)
[2020-07-08] MEDS: PIPERACILLIN/TAZOB 2.25 GM 2.25 GM in DEXTROSE 5%-WATER - 50 ML IVPB SCH ×3 (02:31→17:46)
[2020-07-08] MEDS: oxyCODONE HCL 5 MG TABLET PO PRN ×3 (06:09→17:47)
[2020-07-08] MEDS: DOCUSATE SODIUM 100 MG CAPSULE (FP) PO SCH ×3 (06:10→21:56)
[2020-07-08] MEDS: LEVOTHYROXINE NA 25 MCG TABLET (FP) PO SCH (06:11)
[2020-07-08] MEDS: INSULIN SLIDING SCALE (NOVOLOG) 1 VIAL SQ SCH ×4 (06:18→21:57)
[2020-07-08] MEDS ORDERED: LIDOCAINE HCL 2% (20ML MULTI-DOSE VIAL) ONE (09:10)
[2020-07-08] MEDS ORDERED: ONDANSETRON 4 MG/2 ML VIAL IVPUSH PRN (09:44)
[2020-07-08 09:48] LABS: BASO % 0.5 % (0-2.0); EOS % 4.1 % (0-4.5); HEMATOCRIT 25.4 % (35.4-49); HEMOGLOBIN 8.2 GM/dL (11.7-16.9); LYMPH % 16.4 % (8-40); MCH 29.1 pg (25.7-33.7); MCHC 32.4 g/dl (32.0-35.9); MEAN CELL VOLUME 89.9 fl (80-96); MEAN PLT VOLUME 7.1 fl (7.5-11.1); MONO % 8.3 % (3.8-10.2); NEUT % 70.7 % (42.8-82.8); PLATELET COUNT 351 K/MM3 (134-434); RBC 2.83 M/mm3 (4.00-5.60); RDW 15.7 % (11.9-15.9); WHITE BLOOD COUNT 7.9 K/mm3 (4.0-10.0)
[2020-07-08] MEDS: SEVELAMER CARBONATE 800 MG TAB (FP) PO SCH ×3 (10:04→17:06)
[2020-07-08] MEDS: FERROUS SO4 325 MG TABLET (FP) PO SCH (10:04)
[2020-07-08] MEDS: CLOPIDOGREL BISULFATE 75 MG TABLET (FP) PO SCH (10:04)
[2020-07-08] MEDS: FUROSEMIDE 40 MG TABLET (FP) PO SCH ×2 (10:05→11:28)
[2020-07-08 10:32] LABS: BLOOD UREA NITROGEN 32.8 mg/dL (7-18); CALCIUM 8.9 mg/dL (8.5-10.1)
[2020-07-08 10:33] LABS: ALBUMIN 2.3 g/dl (3.4-5.0)
[2020-07-08 10:34] LABS: BILIRUBIN,TOTAL 0.4 mg/dL (0.2-1); TOT PROT 7.1 g/dl (6.4-8.2)
[2020-07-08 10:36] LABS: CREATININE 5.3 mg/dL (0.55-1.3); PHOSPHOROUS 4.1 mg/dL (2.5-4.9)
[2020-07-08] MEDS ORDERED: LIDOCAINE HCL 2% (50ML VIAL) NR ONE (10:45)
[2020-07-08] MEDS: HEPARIN NA (PORCINE) 5,000 UNITS/ML 1ML VIAL SQ SCH (21:57)
[2020-07-08] MEDS: ATORVASTATIN CA 80 MG TABLET (FP) PO SCH (21:57)
[2020-07-09] MEDS ORDERED: PIPERACILLIN/TAZOBACTAM 2.25 GM VIAL IVPB ONE ×3 (01:20→17:23)
[2020-07-09] MEDS ORDERED: DEXTROSE 5%-WATER - 50 ML IVPB ONE ×3 (01:20→17:23)
[2020-07-09] MEDS: PIPERACILLIN/TAZOB 2.25 GM 2.25 GM in DEXTROSE 5%-WATER - 50 ML IVPB SCH ×3 (01:27→18:06)
[2020-07-09] MEDS ORDERED: ONDANSETRON 4 MG/2 ML VIAL IVPUSH PRN (03:34)
[2020-07-09] MEDS ORDERED: VANCOMYCIN 1 GRAM (PRE-DOCKED) 1,000 MG/250 ML BAG IVPB ONE (04:15)
[2020-07-09] MEDS ORDERED: EPOETIN ALFA-EPBX 20,000 UNIT/ML VIAL SQ ONE (06:30)
[2020-07-09] MEDS: INSULIN SLIDING SCALE (NOVOLOG) 1 VIAL SQ SCH ×3 (06:42→18:03)
[2020-07-09] MEDS: DOCUSATE SODIUM 100 MG CAPSULE (FP) PO SCH ×3 (06:42→23:52)
[2020-07-09] MEDS: LEVOTHYROXINE NA 25 MCG TABLET (FP) PO SCH (06:42)
[2020-07-09] MEDS: HEPARIN NA (PORCINE) 5,000 UNITS/ML 1ML VIAL SQ SCH ×3 (06:43→23:53)
[2020-07-09] MEDS: oxyCODONE HCL 5 MG TABLET PO PRN ×3 (06:43→14:39)
[2020-07-09 09:07] LABS: BASO % 0.6 % (0-2.0); EOS % 4.4 % (0-4.5); HEMATOCRIT 22.1 % (35.4-49); HEMOGLOBIN 7.2 GM/dL (11.7-16.9); LYMPH % 19.4 % (8-40); MCHC 32.5 g/dl (32.0-35.9); MEAN CELL VOLUME 89.3 fl (80-96); MEAN PLT VOLUME 7.3 fl (7.5-11.1); MONO % 8.5 % (3.8-10.2); NEUT % 67.1 % (42.8-82.8); PLATELET COUNT 302 K/MM3 (134-434); RBC 2.47 M/mm3 (4.00-5.60); RDW 15.3 % (11.9-15.9); WHITE BLOOD COUNT 7.7 K/mm3 (4.0-10.0)
[2020-07-09 09:31] LABS: POTASSIUM 4.2 mmol/L (3.5-5.1)
[2020-07-09 09:40] LABS: ALBUMIN 2.2 g/dl (3.4-5.0)
[2020-07-09 09:42] LABS: BLOOD UREA NITROGEN 45.3 mg/dL (7-18)
[2020-07-09 09:43] LABS: CREATININE 6.4 mg/dL (0.55-1.3)
[2020-07-09 09:44] LABS: BILIRUBIN,TOTAL 0.6 mg/dL (0.2-1); TOT PROT 6.4 g/dl (6.4-8.2)
[2020-07-09 10:00] LABS: CALCIUM 8.6 mg/dL (8.5-10.1)
[2020-07-09] MEDS ORDERED: EPOETIN ALFA-EPBX 20,000 UNIT/ML VIAL IVPUSH ONE (10:00)
[2020-07-09] MEDS ORDERED: SODIUM CHLORIDE 250 ML IV PRN (10:00)
[2020-07-09] MEDS ORDERED: HEPARIN NA (PORCINE) 5,000 UNITS/ML 1ML VIAL IVPUSH ONE (10:00)
[2020-07-09] MEDS: SEVELAMER CARBONATE 800 MG TAB (FP) PO SCH ×3 (13:07→18:04)
[2020-07-09] MEDS: FERROUS SO4 325 MG TABLET (FP) PO SCH (13:07)
[2020-07-09] MEDS: CLOPIDOGREL BISULFATE 75 MG TABLET (FP) PO SCH (13:08)
[2020-07-09] MEDS ORDERED: ACETAMINOPHEN 1000 MG/100 ML VIAL (NON FORMULARY) IVPB ONE (17:39)
[2020-07-09] MEDS ORDERED: MORPHINE SULFATE 2 MG/ML VIAL IVPUSH ONE (18:43)
[2020-07-09] MEDS ORDERED: morphine SULFATE 4 MG/ML VIAL IVPUSH ONE (20:04)
[2020-07-09] MEDS ORDERED: HYDROmorphone HCl 2 MG/ML VIAL IVPUSH ONE (23:15)
[2020-07-10] MEDS: ATORVASTATIN CA 80 MG TABLET (FP) PO SCH ×2 (00:08→21:46)
[2020-07-10] MEDS: DOCUSATE SODIUM 100 MG CAPSULE (FP) PO SCH ×4 (00:08→21:46)
[2020-07-10] MEDS: INSULIN SLIDING SCALE (NOVOLOG) 1 VIAL SQ SCH ×5 (00:09→21:50)
[2020-07-10] MEDS ORDERED: HYDROmorphone HCl 2 MG/ML VIAL IVPB ONE ×2 (00:30→08:34)
[2020-07-10] MEDS ORDERED: PIPERACILLIN/TAZOBACTAM 2.25 GM VIAL IVPB ONE ×3 (02:18→18:15)
[2020-07-10] MEDS ORDERED: DEXTROSE 5%-WATER - 50 ML IVPB ONE ×3 (02:18→18:15)
[2020-07-10] MEDS: PIPERACILLIN/TAZOB 2.25 GM 2.25 GM in DEXTROSE 5%-WATER - 50 ML IVPB SCH ×3 (02:25→18:33)
[2020-07-10] MEDS: LEVOTHYROXINE NA 25 MCG TABLET (FP) PO SCH (06:54)
[2020-07-10] MEDS: oxyCODONE HCL 5 MG TABLET PO PRN ×3 (06:54→21:45)
[2020-07-10 08:57] LABS: BASO % 0.7 % (0-2.0); EOS % 2.4 % (0-4.5); HEMATOCRIT 21.7 % (35.4-49); HEMOGLOBIN 7.3 GM/dL (11.7-16.9); LYMPH % 11.7 % (8-40); MCH 29.7 pg (25.7-33.7); MCHC 33.5 g/dl (32.0-35.9); MEAN CELL VOLUME 88.6 fl (80-96); MEAN PLT VOLUME 7.1 fl (7.5-11.1); MONO % 9.1 % (3.8-10.2); NEUT % 76.1 % (42.8-82.8); PLATELET COUNT 323 K/MM3 (134-434); POTASSIUM 3.8 mmol/L (3.5-5.1); RBC 2.45 M/mm3 (4.00-5.60); RDW 15.5 % (11.9-15.9); WHITE BLOOD COUNT 9.4 K/mm3 (4.0-10.0)
[2020-07-10] MEDS: SEVELAMER CARBONATE 800 MG TAB (FP) PO SCH ×3 (09:06→18:36)
[2020-07-10 09:07] LABS: ALBUMIN 2.2 g/dl (3.4-5.0); BLOOD UREA NITROGEN 24.5 mg/dL (7-18); CALCIUM 8.1 mg/dL (8.5-10.1); MAGNESIUM 1.9 mg/dL (1.8-2.4)
[2020-07-10] MEDS: FERROUS SO4 325 MG TABLET (FP) PO SCH (09:07)
[2020-07-10 09:10] LABS: CREATININE 4.6 mg/dL (0.55-1.3); PHOSPHOROUS 3.6 mg/dL (2.5-4.9)
[2020-07-10 09:15] LABS: BILIRUBIN,TOTAL 0.3 mg/dL (0.2-1); TOT PROT 6.6 g/dl (6.4-8.2)
[2020-07-10] MEDS: FUROSEMIDE 40 MG TABLET (FP) PO SCH (13:08)
[2020-07-10] MEDS: ACETAMINOPHEN 650 MG/20.3 ML ORAL SOLUTION (CUPS) PO PRN (13:14)
[2020-07-10] MEDS: HYDROmorphone HCl 2 MG/ML VIAL IVPUSH PRN ×2 (16:51→23:48)
[2020-07-11] MEDS ORDERED: PIPERACILLIN/TAZOBACTAM 2.25 GM VIAL IVPB ONE ×3 (02:00→17:23)
[2020-07-11] MEDS ORDERED: DEXTROSE 5%-WATER - 50 ML IVPB ONE ×3 (02:00→17:23)
[2020-07-11] MEDS: PIPERACILLIN/TAZOB 2.25 GM 2.25 GM in DEXTROSE 5%-WATER - 50 ML IVPB SCH ×3 (02:10→17:44)
[2020-07-11] MEDS: oxyCODONE HCL 5 MG TABLET PO PRN ×2 (05:50→11:23)
[2020-07-11] MEDS: LEVOTHYROXINE NA 25 MCG TABLET (FP) PO SCH (06:30)
[2020-07-11] MEDS: DOCUSATE SODIUM 100 MG CAPSULE (FP) PO SCH ×3 (06:30→21:31)
[2020-07-11] MEDS: HYDROmorphone HCl 2 MG/ML VIAL IVPUSH PRN (06:42)
[2020-07-11] MEDS: INSULIN SLIDING SCALE (NOVOLOG) 1 VIAL SQ SCH ×4 (06:45→21:32)
[2020-07-11] MEDS: FERROUS SO4 325 MG TABLET (FP) PO SCH (10:35)
[2020-07-11] MEDS: SEVELAMER CARBONATE 800 MG TAB (FP) PO SCH ×3 (11:20→17:46)
[2020-07-11] MEDS: ACETAMINOPHEN 650 MG/20.3 ML ORAL SOLUTION (CUPS) PO PRN (11:24)
[2020-07-11] MEDS ORDERED: SODIUM CHLORIDE 250 ML IV PRN (11:25)
[2020-07-11] MEDS ORDERED: EPOETIN ALFA-EPBX 20,000 UNIT/ML VIAL SQ ONE (11:35)
[2020-07-11 13:15] LABS: BASO % 0.6 % (0-2.0); EOS % 4.3 % (0-4.5); HEMATOCRIT 19.5 % (35.4-49); LYMPH % 14.8 % (8-40); MCH 28.7 pg (25.7-33.7); MCHC 31.8 g/dl (32.0-35.9); MEAN CELL VOLUME 90.3 fl (80-96); MEAN PLT VOLUME 7.4 fl (7.5-11.1); MONO % 6.9 % (3.8-10.2); NEUT % 73.4 % (42.8-82.8); PLATELET COUNT 291 K/MM3 (134-434); RBC 2.16 M/mm3 (4.00-5.60); RDW 15.8 % (11.9-15.9); WHITE BLOOD COUNT 9.1 K/mm3 (4.0-10.0)
[2020-07-11 13:22] LABS: HEMOGLOBIN 6.2 GM/dL (11.7-16.9)
[2020-07-11 13:34] LABS: POTASSIUM 4.2 mmol/L (3.5-5.1)
[2020-07-11 13:36] LABS: ALBUMIN 2.1 g/dl (3.4-5.0); BLOOD UREA NITROGEN 34.8 mg/dL (7-18); CALCIUM 8.7 mg/dL (8.5-10.1)
[2020-07-11 13:39] LABS: CREATININE 5.8 mg/dL (0.55-1.3)
[2020-07-11 13:40] LABS: PHOSPHOROUS 4.6 mg/dL (2.5-4.9)
[2020-07-11 13:41] LABS: BILIRUBIN,TOTAL 0.3 mg/dL (0.2-1); TOT PROT 6.2 g/dl (6.4-8.2)
[2020-07-11 19:40] LABS: BASO % 0.4 % (0-2.0); EOS % 5.2 % (0-4.5); HEMATOCRIT 20.8 % (35.4-49); LYMPH % 16.1 % (8-40); MCH 28.5 pg (25.7-33.7); MCHC 32.1 g/dl (32.0-35.9); MEAN CELL VOLUME 88.8 fl (80-96); MEAN PLT VOLUME 7.1 fl (7.5-11.1); MONO % 8.5 % (3.8-10.2); NEUT % 69.8 % (42.8-82.8); PLATELET COUNT 301 K/MM3 (134-434); RBC 2.35 M/mm3 (4.00-5.60); RDW 15.5 % (11.9-15.9)
[2020-07-11 19:47] LABS: HEMOGLOBIN 6.7 GM/dL (11.7-16.9)
[2020-07-11] MEDS: ATORVASTATIN CA 80 MG TABLET (FP) PO SCH (21:31)
[2020-07-12] MEDS ORDERED: DEXTROSE 5%-WATER - 50 ML IVPB ONE ×3 (01:21→17:42)
[2020-07-12] MEDS ORDERED: PIPERACILLIN/TAZOBACTAM 2.25 GM VIAL IVPB ONE ×3 (01:21→17:41)
[2020-07-12] MEDS: PIPERACILLIN/TAZOB 2.25 GM 2.25 GM in DEXTROSE 5%-WATER - 50 ML IVPB SCH ×3 (01:36→18:09)
[2020-07-12] MEDS: LEVOTHYROXINE NA 25 MCG TABLET (FP) PO SCH (06:33)
[2020-07-12] MEDS: DOCUSATE SODIUM 100 MG CAPSULE (FP) PO SCH ×3 (06:33→21:37)
[2020-07-12] MEDS: INSULIN SLIDING SCALE (NOVOLOG) 1 VIAL SQ SCH ×4 (06:34→21:46)
[2020-07-12] MEDS: SEVELAMER CARBONATE 800 MG TAB (FP) PO SCH ×3 (08:55→17:30)
[2020-07-12] MEDS: FUROSEMIDE 40 MG TABLET (FP) PO SCH (09:02)
[2020-07-12] MEDS: FERROUS SO4 325 MG TABLET (FP) PO SCH (09:02)
[2020-07-12 09:20] LABS: BASO % 0.6 % (0-2.0); HEMATOCRIT 25.5 % (35.4-49); HEMOGLOBIN 8.3 GM/dL (11.7-16.9); LYMPH % 15.7 % (8-40); MCH 28.6 pg (25.7-33.7); MCHC 32.6 g/dl (32.0-35.9); MEAN CELL VOLUME 87.9 fl (80-96); MEAN PLT VOLUME 7.1 fl (7.5-11.1); MONO % 9.1 % (3.8-10.2); NEUT % 69.6 % (42.8-82.8); PLATELET COUNT 292 K/MM3 (134-434); RDW 15.5 % (11.9-15.9); WHITE BLOOD COUNT 7.2 K/mm3 (4.0-10.0)
[2020-07-12 09:44] LABS: POTASSIUM 3.7 mmol/L (3.5-5.1)
[2020-07-12 10:09] LABS: TOT PROT 6.5 g/dl (6.4-8.2)
[2020-07-12 10:23] LABS: CALCIUM 8.6 mg/dL (8.5-10.1)
[2020-07-12 10:24] LABS: ALBUMIN 2.2 g/dl (3.4-5.0); BLOOD UREA NITROGEN 23.8 mg/dL (7-18); CREATININE 4.1 mg/dL (0.55-1.3); PHOSPHOROUS 3.7 mg/dL (2.5-4.9)
[2020-07-12 10:25] LABS: MAGNESIUM 1.8 mg/dL (1.8-2.4)
[2020-07-12 10:26] LABS: BILIRUBIN,TOTAL 0.5 mg/dL (0.2-1)
[2020-07-12] MEDS: PANTOPRAZOLE 40 MG TABLET PO SCH (16:07)
[2020-07-12] MEDS: ATORVASTATIN CA 80 MG TABLET (FP) PO SCH (21:37)
[2020-07-13] MEDS ORDERED: PIPERACILLIN/TAZOBACTAM 2.25 GM VIAL IVPB ONE ×3 (00:19→17:42)
[2020-07-13] MEDS ORDERED: DEXTROSE 5%-WATER - 50 ML IVPB ONE ×3 (00:20→17:42)
[2020-07-13] MEDS ORDERED: HYDROmorphone HCL 2 MG TABLET PO ONE ×2 (00:24→14:55)
[2020-07-13] MEDS: ACETAMINOPHEN 650 MG/20.3 ML ORAL SOLUTION (CUPS) PO PRN (00:36)
[2020-07-13] MEDS ORDERED: HYDROmorphone HCl 2 MG/ML VIAL IVPB ONE ×2 (00:46→02:32)
[2020-07-13] MEDS: PIPERACILLIN/TAZOB 2.25 GM 2.25 GM in DEXTROSE 5%-WATER - 50 ML IVPB SCH ×3 (01:25→17:45)
[2020-07-13] MEDS: DOCUSATE SODIUM 100 MG CAPSULE (FP) PO SCH ×3 (06:11→22:15)
[2020-07-13] MEDS: LEVOTHYROXINE NA 25 MCG TABLET (FP) PO SCH (06:11)
[2020-07-13] MEDS: INSULIN SLIDING SCALE (NOVOLOG) 1 VIAL SQ SCH ×4 (06:12→22:23)
[2020-07-13] MEDS ORDERED: INSULIN (NOVOLOG) ASPART 100 UNITS/ML 10ML VIAL ONE (06:34)
[2020-07-13] MEDS: FUROSEMIDE 40 MG TABLET (FP) PO SCH (09:24)
[2020-07-13] MEDS: PANTOPRAZOLE 40 MG TABLET PO SCH ×2 (09:24→22:23)
[2020-07-13] MEDS: FERROUS SO4 325 MG TABLET (FP) PO SCH (09:24)
[2020-07-13] MEDS: SEVELAMER CARBONATE 800 MG TAB (FP) PO SCH ×3 (09:26→17:04)
[2020-07-13 09:44] LABS: BASO % 0.3 % (0-2.0); EOS % 3.2 % (0-4.5); HEMATOCRIT 25.6 % (35.4-49); HEMOGLOBIN 8.7 GM/dL (11.7-16.9); LYMPH % 8.9 % (8-40); MCH 29.5 pg (25.7-33.7); MCHC 33.9 g/dl (32.0-35.9); MEAN CELL VOLUME 87.1 fl (80-96); MEAN PLT VOLUME 7.2 fl (7.5-11.1); NEUT % 81.6 % (42.8-82.8); PLATELET COUNT 317 K/MM3 (134-434); RBC 2.94 M/mm3 (4.00-5.60); RDW 15.6 % (11.9-15.9); WHITE BLOOD COUNT 9.3 K/mm3 (4.0-10.0)
[2020-07-13 09:58] LABS: POTASSIUM 3.9 mmol/L (3.5-5.1)
[2020-07-13] MEDS ORDERED: ACETAMINOPHEN 325 MG TABLET (FP) PO PRN ×2 (09:59→12:52)
[2020-07-13 10:05] LABS: CALCIUM 8.8 mg/dL (8.5-10.1)
[2020-07-13 10:06] LABS: ALBUMIN 2.4 g/dl (3.4-5.0); BLOOD UREA NITROGEN 34.5 mg/dL (7-18); MAGNESIUM 1.9 mg/dL (1.8-2.4)
[2020-07-13 10:08] LABS: CREATININE 5.8 mg/dL (0.55-1.3)
[2020-07-13 10:09] LABS: PHOSPHOROUS 4.3 mg/dL (2.5-4.9)
[2020-07-13 10:10] LABS: BILIRUBIN,TOTAL 0.4 mg/dL (0.2-1)
[2020-07-13] MEDS ORDERED: oxyCODONE HCL 5 MG TABLET PO PRN (12:02)
[2020-07-13] MEDS: GABAPENTIN 100 MG CAPSULE PO SCH ×2 (13:47→22:23)
[2020-07-13] MEDS ORDERED: SODIUM CHLORIDE 250 ML IV PRN (15:08)
[2020-07-13] MEDS: ATORVASTATIN CA 80 MG TABLET (FP) PO SCH (22:23)
[2020-07-14] MEDS ORDERED: PIPERACILLIN/TAZOBACTAM 2.25 GM VIAL IVPB ONE ×3 (01:47→16:57)
[2020-07-14] MEDS ORDERED: DEXTROSE 5%-WATER - 50 ML IVPB ONE ×3 (01:47→16:57)
[2020-07-14] MEDS: PIPERACILLIN/TAZOB 2.25 GM 2.25 GM in DEXTROSE 5%-WATER - 50 ML IVPB SCH ×3 (02:14→16:59)
[2020-07-14] MEDS: HYDROmorphone HCL 2 MG TABLET PO PRN ×3 (03:01→17:55)
[2020-07-14] MEDS: LEVOTHYROXINE NA 25 MCG TABLET (FP) PO SCH (06:24)
[2020-07-14] MEDS: GABAPENTIN 100 MG CAPSULE PO SCH ×3 (06:24→22:01)
[2020-07-14] MEDS: DOCUSATE SODIUM 100 MG CAPSULE (FP) PO SCH ×3 (06:24→22:00)
[2020-07-14] MEDS: INSULIN SLIDING SCALE (NOVOLOG) 1 VIAL SQ SCH ×4 (06:26→22:05)
[2020-07-14] MEDS: SEVELAMER CARBONATE 800 MG TAB (FP) PO SCH ×3 (08:25→16:59)
[2020-07-14] MEDS ORDERED: EPOETIN ALFA-EPBX 20,000 UNIT/ML VIAL IVPUSH ONE (09:00)
[2020-07-14 09:04] LABS: BASO % 0.5 % (0-2.0); EOS % 5.2 % (0-4.5); HEMATOCRIT 25.3 % (35.4-49); LYMPH % 17.1 % (8-40); MCHC 31.5 g/dl (32.0-35.9); MEAN CELL VOLUME 88.9 fl (80-96); MEAN PLT VOLUME 7.5 fl (7.5-11.1); MONO % 8.3 % (3.8-10.2); NEUT % 68.9 % (42.8-82.8); PLATELET COUNT 291 K/MM3 (134-434); RBC 2.84 M/mm3 (4.00-5.60); RDW 15.5 % (11.9-15.9); WHITE BLOOD COUNT 7.3 K/mm3 (4.0-10.0)
[2020-07-14 09:43] LABS: POTASSIUM 4.2 mmol/L (3.5-5.1)
[2020-07-14 09:56] LABS: ALBUMIN 2.3 g/dl (3.4-5.0); CALCIUM 8.9 mg/dL (8.5-10.1)
[2020-07-14 09:56] LABS: HEMOGLOBIN 7.6 GM/dL (11.7-16.9); MCH 28.2 pg (25.7-33.7); MCHC 31.6 g/dl (32.0-35.9); MEAN CELL VOLUME 89.2 fl (80-96); MEAN PLT VOLUME 7.2 fl (7.5-11.1); PLATELET COUNT 279 K/MM3 (134-434); RBC 2.69 M/mm3 (4.00-5.60); RDW 15.6 % (11.9-15.9); WHITE BLOOD COUNT 7.6 K/mm3 (4.0-10.0)
[2020-07-14 09:57] LABS: BLOOD UREA NITROGEN 41.9 mg/dL (7-18); MAGNESIUM 2.1 mg/dL (1.8-2.4)
[2020-07-14] MEDS ORDERED: IRON SUCROSE INJECTION 200 MG in SODIUM CHLORIDE 90 ML IVPB ONE (10:00)
[2020-07-14 10:02] LABS: CREATININE 6.6 mg/dL (0.55-1.3); PHOSPHOROUS 4.8 mg/dL (2.5-4.9)
[2020-07-14 10:03] LABS: TOT PROT 6.4 g/dl (6.4-8.2)
[2020-07-14 10:04] LABS: BILIRUBIN,TOTAL 0.3 mg/dL (0.2-1)
[2020-07-14] MEDS: FERROUS SO4 325 MG TABLET (FP) PO SCH (14:07)
[2020-07-14] MEDS: PANTOPRAZOLE 40 MG TABLET PO SCH ×2 (14:07→22:01)
[2020-07-14 16:26] VITALS: BMI 43.8
[2020-07-14] MEDS: ATORVASTATIN CA 80 MG TABLET (FP) PO SCH (22:01)
[2020-07-15] MEDS ORDERED: PIPERACILLIN/TAZOBACTAM 2.25 GM VIAL IVPB ONE ×3 (01:14→16:48)
[2020-07-15] MEDS ORDERED: DEXTROSE 5%-WATER - 50 ML IVPB ONE ×3 (01:14→16:49)
[2020-07-15] MEDS: HYDROmorphone HCL 2 MG TABLET PO PRN ×3 (01:19→17:37)
[2020-07-15] MEDS: PIPERACILLIN/TAZOB 2.25 GM 2.25 GM in DEXTROSE 5%-WATER - 50 ML IVPB SCH ×3 (01:20→17:02)
[2020-07-15] MEDS: GABAPENTIN 100 MG CAPSULE PO SCH ×3 (05:57→21:41)
[2020-07-15] MEDS: HEPARIN NA (PORCINE) 5,000 UNITS/ML 1ML VIAL SQ SCH ×3 (05:58→21:41)
[2020-07-15] MEDS: DOCUSATE SODIUM 100 MG CAPSULE (FP) PO SCH ×3 (05:58→21:41)
[2020-07-15] MEDS: INSULIN SLIDING SCALE (NOVOLOG) 1 VIAL SQ SCH ×4 (06:02→21:47)
[2020-07-15] MEDS: LEVOTHYROXINE NA 25 MCG TABLET (FP) PO SCH (06:02)
[2020-07-15] MEDS: FUROSEMIDE 40 MG TABLET (FP) PO SCH (09:05)
[2020-07-15] MEDS: CLOPIDOGREL BISULFATE 75 MG TABLET (FP) PO SCH (09:05)
[2020-07-15] MEDS: FERROUS SO4 325 MG TABLET (FP) PO SCH (09:05)
[2020-07-15] MEDS: PANTOPRAZOLE 40 MG TABLET PO SCH ×2 (09:05→21:41)
[2020-07-15] MEDS: SEVELAMER CARBONATE 800 MG TAB (FP) PO SCH ×3 (09:05→17:01)
[2020-07-15 10:19] LABS: BASO % 0.5 % (0-2.0); HEMATOCRIT 25.5 % (35.4-49); HEMOGLOBIN 8.3 GM/dL (11.7-16.9); LYMPH % 19.4 % (8-40); MCH 28.8 pg (25.7-33.7); MCHC 32.6 g/dl (32.0-35.9); MEAN CELL VOLUME 88.5 fl (80-96); MEAN PLT VOLUME 7.6 fl (7.5-11.1); MONO % 9.3 % (3.8-10.2); NEUT % 65.8 % (42.8-82.8); PLATELET COUNT 300 K/MM3 (134-434); RBC 2.88 M/mm3 (4.00-5.60); RDW 15.6 % (11.9-15.9); WHITE BLOOD COUNT 7.2 K/mm3 (4.0-10.0)
[2020-07-15 10:44] LABS: ALBUMIN 2.4 g/dl (3.4-5.0); CALCIUM 8.9 mg/dL (8.5-10.1)
[2020-07-15 10:45] LABS: BLOOD UREA NITROGEN 35.3 mg/dL (7-18)
[2020-07-15 10:48] LABS: CREATININE 5.7 mg/dL (0.55-1.3); PHOSPHOROUS 4.1 mg/dL (2.5-4.9)
[2020-07-15 10:49] LABS: BILIRUBIN,TOTAL 0.7 mg/dL (0.2-1); TOT PROT 6.8 g/dl (6.4-8.2)
[2020-07-15] MEDS ORDERED: SODIUM CHLORIDE 250 ML IV PRN (16:59)
[2020-07-15] MEDS ORDERED: HYDROmorphone HCL CARPU-JECT 2 MG/1 ML DISP.SYRIN IVPUSH ONE (20:43)
[2020-07-15] MEDS ORDERED: HYDROmorphone HCl 2 MG/ML VIAL IVPUSH ONE (21:15)
[2020-07-15] MEDS: ATORVASTATIN CA 80 MG TABLET (FP) PO SCH (21:41)
[2020-07-16] MEDS ORDERED: PIPERACILLIN/TAZOBACTAM 2.25 GM VIAL IVPB ONE ×2 (01:02→12:54)
[2020-07-16] MEDS ORDERED: DEXTROSE 5%-WATER - 50 ML IVPB ONE ×3 (01:03→14:02)
[2020-07-16] MEDS: PIPERACILLIN/TAZOB 2.25 GM 2.25 GM in DEXTROSE 5%-WATER - 50 ML IVPB SCH ×2 (01:05→12:57)
[2020-07-16] MEDS: HYDROmorphone HCL 2 MG TABLET PO PRN ×3 (04:56→19:06)
[2020-07-16] MEDS: HEPARIN NA (PORCINE) 5,000 UNITS/ML 1ML VIAL SQ SCH ×3 (05:00→22:18)
[2020-07-16] MEDS: GABAPENTIN 100 MG CAPSULE PO SCH ×3 (05:00→22:14)
[2020-07-16] MEDS: DOCUSATE SODIUM 100 MG CAPSULE (FP) PO SCH ×3 (05:00→22:17)
[2020-07-16] MEDS: LEVOTHYROXINE NA 25 MCG TABLET (FP) PO SCH (06:00)
[2020-07-16] MEDS: INSULIN SLIDING SCALE (NOVOLOG) 1 VIAL SQ SCH ×4 (06:01→22:22)
[2020-07-16] MEDS: SEVELAMER CARBONATE 800 MG TAB (FP) PO SCH ×3 (08:27→17:51)
[2020-07-16 09:32] LABS: BASO % 0.4 % (0-2.0); EOS % 4.5 % (0-4.5); HEMATOCRIT 25.9 % (35.4-49); HEMOGLOBIN 8.4 GM/dL (11.7-16.9); LYMPH % 13.9 % (8-40); MCH 28.4 pg (25.7-33.7); MCHC 32.4 g/dl (32.0-35.9); MEAN CELL VOLUME 87.6 fl (80-96); MEAN PLT VOLUME 7.4 fl (7.5-11.1); MONO % 9.4 % (3.8-10.2); NEUT % 71.8 % (42.8-82.8); PLATELET COUNT 296 K/MM3 (134-434); RBC 2.95 M/mm3 (4.00-5.60); RDW 15.3 % (11.9-15.9); WHITE BLOOD COUNT 8.6 K/mm3 (4.0-10.0)
[2020-07-16 09:48] LABS: CALCIUM 9.2 mg/dL (8.5-10.1)
[2020-07-16 09:49] LABS: ALBUMIN 2.4 g/dl (3.4-5.0); BLOOD UREA NITROGEN 47.4 mg/dL (7-18); MAGNESIUM 2.1 mg/dL (1.8-2.4)
[2020-07-16 09:52] LABS: CREATININE 6.8 mg/dL (0.55-1.3); PHOSPHOROUS 4.7 mg/dL (2.5-4.9)
[2020-07-16 09:53] LABS: BILIRUBIN,TOTAL 0.8 mg/dL (0.2-1); TOT PROT 7.2 g/dl (6.4-8.2)
[2020-07-16] MEDS ORDERED: EPOETIN ALFA-EPBX 20,000 UNIT/ML VIAL IVPUSH ONE (10:30)
[2020-07-16] MEDS ORDERED: HEPARIN NA (PORCINE) 5,000 UNITS/ML 1ML VIAL IVPUSH ONE (10:30)
[2020-07-16] MEDS: FERROUS SO4 325 MG TABLET (FP) PO SCH (12:56)
[2020-07-16] MEDS: CLOPIDOGREL BISULFATE 75 MG TABLET (FP) PO SCH (12:56)
[2020-07-16] MEDS: PANTOPRAZOLE 40 MG TABLET PO SCH ×2 (12:56→22:17)
[2020-07-16] MEDS ORDERED: cefTAZidime PENTAHYDRATE 1 GM/50ML PRE-DOCKED (RESTRICTED TO ID) IVPB SCH (13:15)
[2020-07-16] MEDS ORDERED: cefTAZidime PENTAHYDRATE 1 GM VIAL (RESTRICTED TO ID) ONE (14:02)
[2020-07-16] MEDS: CEFTAZIDIME PENTAHYDRATE 1 GM in DEXTROSE 5%-WATER - 50 ML IVPB SCH (14:12)
[2020-07-16 15:31] LABS: EPI CELLS 16 /uL (0-25.1); HYALINE CASTS 2 /uL (0-3.1); PH,URINE 7.5 (5.0-8.0); URINE APPEARANCE CLEAR; URINE BACTERIA 30 /uL (0-1359); URINE BILIRUBIN NEGATIVE (NEGATIVE); URINE COLOR YELLOW; URINE GLUCOSE (UA) 2+ (NEGATIVE); URINE KETONE NEGATIVE (NEGATIVE); URINE LEUK ESTERASE NEGATIVE (NEGATIVE); URINE NITRITE NEGATIVE (NEGATIVE); URINE PROTEIN 4+ (NEGATIVE); URINE RBC 34 /uL (0-23.9); URINE UROBILINOGEN 0.2 mg/dL (0.2-1.0); URINE WBC 27 /uL (0-25.8)
[2020-07-16] MEDS: ATORVASTATIN CA 80 MG TABLET (FP) PO SCH (22:17)
[2020-07-17] MEDS: HYDROmorphone HCL 2 MG TABLET PO PRN ×4 (02:03→22:35)
[2020-07-17] MEDS: LEVOTHYROXINE NA 25 MCG TABLET (FP) PO SCH (06:29)
[2020-07-17] MEDS: GABAPENTIN 100 MG CAPSULE PO SCH ×3 (06:30→22:37)
[2020-07-17] MEDS: HEPARIN NA (PORCINE) 5,000 UNITS/ML 1ML VIAL SQ SCH ×3 (06:30→22:33)
[2020-07-17] MEDS: INSULIN SLIDING SCALE (NOVOLOG) 1 VIAL SQ SCH ×4 (06:31→22:32)
[2020-07-17] MEDS: DOCUSATE SODIUM 100 MG CAPSULE (FP) PO SCH ×3 (06:31→22:35)
[2020-07-17] MEDS: SEVELAMER CARBONATE 800 MG TAB (FP) PO SCH ×3 (08:47→17:36)
[2020-07-17] MEDS: CLOPIDOGREL BISULFATE 75 MG TABLET (FP) PO SCH (09:42)
[2020-07-17] MEDS: FERROUS SO4 325 MG TABLET (FP) PO SCH (09:42)
[2020-07-17] MEDS: PANTOPRAZOLE 40 MG TABLET PO SCH ×2 (09:42→22:36)
[2020-07-17] MEDS: FUROSEMIDE 40 MG TABLET (FP) PO SCH (09:44)
[2020-07-17] MEDS ORDERED: SODIUM CHLORIDE 250 ML IV PRN (10:53)
[2020-07-17] MEDS ORDERED: EPOETIN ALFA-EPBX 20,000 UNIT/ML VIAL SQ ONE (12:30)
[2020-07-17] MEDS ORDERED: INSULIN (NOVOLOG) ASPART 100 UNITS/ML 10ML VIAL ONE (12:44)
[2020-07-17] MEDS ORDERED: DEXTROSE 5%-WATER - 50 ML IVPB ONE (12:46)
[2020-07-17] MEDS ORDERED: cefTAZidime PENTAHYDRATE 1 GM VIAL (RESTRICTED TO ID) ONE (12:46)
[2020-07-17] MEDS: CEFTAZIDIME PENTAHYDRATE 1 GM in DEXTROSE 5%-WATER - 50 ML IVPB SCH (13:07)
[2020-07-17] MEDS: ATORVASTATIN CA 80 MG TABLET (FP) PO SCH (22:36)
[2020-07-18] MEDS: HEPARIN NA (PORCINE) 5,000 UNITS/ML 1ML VIAL SQ SCH ×2 (07:07→13:15)
[2020-07-18] MEDS: DOCUSATE SODIUM 100 MG CAPSULE (FP) PO SCH ×2 (07:08→13:15)
[2020-07-18] MEDS: GABAPENTIN 100 MG CAPSULE PO SCH ×2 (07:08→13:16)
[2020-07-18] MEDS: LEVOTHYROXINE NA 25 MCG TABLET (FP) PO SCH (07:09)
[2020-07-18] MEDS: INSULIN SLIDING SCALE (NOVOLOG) 1 VIAL SQ SCH ×3 (07:09→17:11)
[2020-07-18] MEDS: HYDROmorphone HCL 2 MG TABLET PO PRN ×3 (07:17→19:14)
[2020-07-18] MEDS ORDERED: EPOETIN ALFA-EPBX 20,000 UNIT/ML VIAL IVPUSH ONE (07:30)
[2020-07-18] MEDS ORDERED: PT OWN MED DRAWER 7, Y5N ONE (07:48)
[2020-07-18] MEDS: SEVELAMER CARBONATE 800 MG TAB (FP) PO SCH ×3 (08:23→17:11)
[2020-07-18 09:13] VITALS: TEMP 98.5
[2020-07-18 11:55] VITALS: PULSE 100
[2020-07-18 12:36] VITALS: BP 145/96
[2020-07-18] MEDS ORDERED: cefTAZidime PENTAHYDRATE 1 GM VIAL (RESTRICTED TO ID) ONE (13:10)
[2020-07-18] MEDS ORDERED: DEXTROSE 5%-WATER - 50 ML IVPB ONE (13:11)
[2020-07-18] MEDS: CLOPIDOGREL BISULFATE 75 MG TABLET (FP) PO SCH (13:13)
[2020-07-18] MEDS: FERROUS SO4 325 MG TABLET (FP) PO SCH (13:13)
[2020-07-18] MEDS: PANTOPRAZOLE 40 MG TABLET PO SCH (13:13)
[2020-07-18] MEDS: CEFTAZIDIME PENTAHYDRATE 1 GM in DEXTROSE 5%-WATER - 50 ML IVPB SCH (13:15)
== END 2020-07-18 22:30 | disposition home health service (06) | DRG 181 ==
LOC: JER 13:59 → JERBED 17:52 → J6S 06-13 00:46
PROVIDERS: ATTEND Internal Medicine
PROC: 0Y6M0Z6 Detachment at Right Foot, Complete 3rd Ray, Open Approach (ICD-10-PCS; 2020-06-17)
PROC: 0Y6M0Z7 Detachment at Right Foot, Complete 4th Ray, Open Approach (ICD-10-PCS; principal; 2020-06-17 12:00)
PROC: 0Y6T0Z1 Detachment at Right 3rd Toe, High, Open Approach (ICD-10-PCS; 2020-06-19)
PROC: 047R3Z1 Dilation of Right Posterior Tibial Artery using Drug-Coated Balloon, Percutaneous Approach (ICD-10-PCS; 2020-06-23)
PROC: 3E03317 Introduction of Other Thrombolytic into Peripheral Vein, Percutaneous Approach (ICD-10-PCS; 2020-06-23)
PROC: B41DZZZ Fluoroscopy of Aorta and Bilateral Lower Extremity Arteries (ICD-10-PCS; 2020-06-23)
PROC: 047P3Z1 Dilation of Right Anterior Tibial Artery using Drug-Coated Balloon, Percutaneous Approach (ICD-10-PCS; 2020-06-27)
PROC: 3E03317 Introduction of Other Thrombolytic into Peripheral Vein, Percutaneous Approach (ICD-10-PCS; 2020-06-27)
PROC: B41DZZZ Fluoroscopy of Aorta and Bilateral Lower Extremity Arteries (ICD-10-PCS; 2020-06-27)
PROC: 0Y6M0Z0 Detachment at Right Foot, Complete, Open Approach (ICD-10-PCS; 2020-07-01)
PROC: 0HRMXJZ Replacement of Right Foot Skin with Synthetic Substitute, External Approach (ICD-10-PCS; 2020-07-01)
PROC: 0HBMXZZ Excision of Right Foot Skin, External Approach (ICD-10-PCS; 2020-07-08)
PROC: 30233N1 Transfusion of Nonautologous Red Blood Cells into Peripheral Vein, Percutaneous Approach (ICD-10-PCS; 2020-07-11)
PROC: 5A1D70Z Performance of Urinary Filtration, Intermittent, Less than 6 Hours Per Day (ICD-10-PCS; 2020-07-18)
DX: E11.52 Type 2 diabetes mellitus with diabetic peripheral angiopathy with gangrene (principal); N18.9 Chronic kidney disease, unspecified; I10 Essential (primary) hypertension; E11.9 Type 2 diabetes mellitus without complications; I96 Gangrene, not elsewhere classified; N18.6 End stage renal disease; Z68.41 Body mass index [BMI] 40.0-44.9, adult; R59.1 Generalized enlarged lymph nodes; R31.9 Hematuria, unspecified; E78.5 Hyperlipidemia, unspecified; E11.22 Type 2 diabetes mellitus with diabetic chronic kidney disease; E03.9 Hypothyroidism, unspecified; D63.1 Anemia in chronic kidney disease; E83.39 Other disorders of phosphorus metabolism; K76.0 Fatty (change of) liver, not elsewhere classified; Z99.2 Dependence on renal dialysis; I13.2 Hypertensive heart and chronic kidney disease with heart failure and with stage 5 chronic kidney disease, or end stage renal disease; E87.5 Hyperkalemia; T87.89 Other complications of amputation stump; Y83.9 Surgical procedure, unspecified as the cause of abnormal reaction of the patient, or of later complication, without mention of misadventure at the time of the procedure; L97.819 Non-pressure chronic ulcer of other part of right lower leg with unspecified severity; E11.622 Type 2 diabetes mellitus with other skin ulcer; E11.42 Type 2 diabetes mellitus with diabetic polyneuropathy; I77.1 Stricture of artery; I50.32 Chronic diastolic (congestive) heart failure; E66.01 Morbid (severe) obesity due to excess calories; R94.31 Abnormal electrocardiogram [ECG] [EKG]
CPT/HCPCS: 36415; 36430; 71045-TC-FY; 72193-TC; 73630-TC-RT-FY; 75635-TC; 76000-TC-FY; 76882-TC-RT-FY; 80048; 80053; 80061; 81003; 82272; 82962; 83036; 83605; 83721; 83735; 84100; 84436; 84443; 85025; 85027; 85610; 85651; 85730; 86140; 86704; 86706; 86707; 86708; 86709; 86803; 86850; 86900; 86901; 86922; 87040; 87070; 87075; 87086; 87186; 87205; 87340; 88304-TC; 88305-TC; 88311-TC; 93005; 93010; 93971-TC; 94760; 97116-GP; 97162-GP; 99285-25; C9803; G0480; J0131; J0885; J1644; J1756; P9058; Q5106; Q9967; U0003

== ENCOUNTER 2020-10-03 11:12 | Emergency (ER) | payer OTHER ==
[2020-10-03 11:25] VITALS: BMI 43.2
[2020-10-03] MEDS ORDERED: SODIUM CHLORIDE 250 ML IV STA (11:57)
[2020-10-03 13:03] LABS: CALCIUM 8.9 mg/dL (8.5-10.1)
[2020-10-03 13:04] LABS: BLOOD UREA NITROGEN 16.5 mg/dL (7-18); MAGNESIUM 1.9 mg/dL (1.8-2.4)
[2020-10-03 13:07] LABS: CREATININE 3.1 mg/dL (0.55-1.3); PHOSPHOROUS 6.6 mg/dL (2.5-4.9)
[2020-10-03 13:08] LABS: BILIRUBIN,TOTAL 0.4 mg/dL (0.2-1); TOT PROT 7.8 g/dl (6.4-8.2)
[2020-10-03 13:51] LABS: BASO % 0.6 % (0-2.0); EOS % 4.3 % (0-4.5); HEMATOCRIT 37.3 % (35.4-49); HEMOGLOBIN 12.5 GM/dL (11.7-16.9); LYMPH % 17.4 % (8-40); MCH 31.3 pg (25.7-33.7); MCHC 33.5 g/dl (32.0-35.9); MEAN CELL VOLUME 93.3 fl (80-96); MEAN PLT VOLUME 7.8 fl (7.5-11.1); MONO % 11.4 % (3.8-10.2); NEUT % 66.3 % (42.8-82.8); PLATELET COUNT 174 K/MM3 (134-434); RDW 18.9 % (11.9-15.9); WHITE BLOOD COUNT 7.6 K/mm3 (4.0-10.0)
[2020-10-03 15:13] VITALS: BP 113/71; PULSE 100; TEMP 97.5
== END 2020-10-03 15:46 | disposition home or self-care (01) ==
LOC: JER 11:12
PROC: 3E0337Z Introduction of Electrolytic and Water Balance Substance into Peripheral Vein, Percutaneous Approach (ICD-10-PCS; principal; 2020-10-03)
DX: I95.0 Idiopathic hypotension (principal); R19.7 Diarrhea, unspecified
CPT/HCPCS: 36415; 71045-TC-FY; 80053; 82550; 82962; 83735; 84100; 84484; 85025; 93005; 93010; 99285-25; C9803; U0003; U0005

== ENCOUNTER 2020-10-20 11:52 | Inpatient (IN) | payer OTHER ==
[2020-10-20] MEDS ORDERED: KETOROLAC TROMETHAMINE 15 MG/ML VIAL IVPUSH ONE (13:42)
[2020-10-20 13:48] LABS: BASO % 0.5 % (0-2.0); EOS % 3.9 % (0-4.5); HEMATOCRIT 30.3 % (35.4-49); HEMOGLOBIN 10.1 GM/dL (11.7-16.9); LYMPH % 12.8 % (8-40); MCHC 33.5 g/dl (32.0-35.9); MEAN CELL VOLUME 92.7 fl (80-96); MONO % 11.4 % (3.8-10.2); NEUT % 71.4 % (42.8-82.8); PLATELET COUNT 181 K/MM3 (134-434); RBC 3.26 M/mm3 (4.00-5.60); RDW 16.9 % (11.9-15.9); WHITE BLOOD COUNT 8.8 K/mm3 (4.0-10.0)
[2020-10-20] MEDS ORDERED: ASPIRIN 81 MG CHEWABLE TABLETS PO ONE (14:05)
[2020-10-20 14:06] LABS: ALBUMIN 2.7 g/dl (3.4-5.0); BLOOD UREA NITROGEN 56.4 mg/dL (7-18); CALCIUM 8.6 mg/dL (8.5-10.1)
[2020-10-20 14:09] LABS: CREATININE 6.8 mg/dL (0.55-1.3)
[2020-10-20 14:11] LABS: BILIRUBIN,TOTAL 0.6 mg/dL (0.2-1); INR 1.26 (0.83-1.09); PROTHROMBIN TIME (PATIENT) 15.1 SEC (9.7-13.0); TOT PROT 7.9 g/dl (6.4-8.2)
[2020-10-20 14:14] LABS: ACTIVATED PTT 35.6 SECONDS (25.2-36.5)
[2020-10-20] MEDS ORDERED: ASPIRIN 81 MG CHEWABLE TABLETS ONE (15:04)
[2020-10-20] MEDS ORDERED: oxyCODONE HCL 5 MG TABLET PO PRN (16:29)
[2020-10-20] MEDS ORDERED: ACETAMINOPHEN 325 MG TABLET (FP) PO PRN (16:29)
[2020-10-20] MEDS ORDERED: GABAPENTIN 300 MG CAPSULE PO SCH (16:30)
[2020-10-20 17:53] LABS: PLATELET ESTIMATE NORMAL
[2020-10-20] MEDS: INSULIN SLIDING SCALE (NOVOLOG) 1 VIAL SQ SCH (18:10)
[2020-10-20] MEDS: CALCIUM ACETATE 667 MG CAPSULE (FP) PO SCH (18:30)
[2020-10-20] MEDS ORDERED: FUROSEMIDE 40 MG TABLET (FP) ONE (21:34)
[2020-10-20] MEDS ORDERED: DOCUSATE SODIUM 100 MG CAPSULE (FP) PO ONE (21:35)
[2020-10-20] MEDS ORDERED: APIXABAN 2.5 MG TABLET ONE (21:35)
[2020-10-20] MEDS ORDERED: ATORVASTATIN CA 80 MG TABLET (FP) ONE (21:35)
[2020-10-20] MEDS ORDERED: GABAPENTIN 100 MG CAPSULE ONE (21:36)
[2020-10-20] MEDS: APIXABAN 2.5 MG TABLET PO SCH (21:59)
[2020-10-20] MEDS: DOCUSATE SODIUM 100 MG CAPSULE (FP) PO SCH (21:59)
[2020-10-20] MEDS: GABAPENTIN 300 MG CAPSULE PO SCH (22:00)
[2020-10-20] MEDS: FUROSEMIDE 40 MG TABLET (FP) PO SCH (22:00)
[2020-10-20] MEDS: ATORVASTATIN CA 80 MG TABLET (FP) PO SCH (22:00)
[2020-10-21] MEDS: DOCUSATE SODIUM 100 MG CAPSULE (FP) PO SCH ×3 (06:36→22:54)
[2020-10-21] MEDS ORDERED: GABAPENTIN 100 MG CAPSULE ONE ×3 (06:36→22:21)
[2020-10-21] MEDS: GABAPENTIN 300 MG CAPSULE PO SCH ×3 (06:37→22:54)
[2020-10-21] MEDS: LEVOTHYROXINE NA 25 MCG TABLET (FP) PO SCH (07:00)
[2020-10-21 07:15] LABS: BASO % 0.7 % (0-2.0); EOS % 4.3 % (0-4.5); HEMATOCRIT 30.3 % (35.4-49); LYMPH % 13.4 % (8-40); MCH 30.9 pg (25.7-33.7); MEAN CELL VOLUME 93.6 fl (80-96); MEAN PLT VOLUME 7.9 fl (7.5-11.1); MONO % 10.4 % (3.8-10.2); NEUT % 71.2 % (42.8-82.8); PLATELET COUNT 186 K/MM3 (134-434); RBC 3.24 M/mm3 (4.00-5.60); RDW 17.1 % (11.9-15.9); WHITE BLOOD COUNT 9.5 K/mm3 (4.0-10.0)
[2020-10-21 07:25] LABS: CHLORIDE 99 mmol/L (98-107); SODIUM 132 mmol/L (136-145)
[2020-10-21 07:27] LABS: CALCIUM 8.1 mg/dL (8.5-10.1)
[2020-10-21 07:28] LABS: ALBUMIN 2.2 g/dl (3.4-5.0); ANION GAP 16 MMOL/L (8-16); BLOOD UREA NITROGEN 70.2 mg/dL (7-18); CO2 17 mmol/L (21-32); GLUCOSE,RANDOM 251 mg/dL (74-106)
[2020-10-21 07:31] LABS: SGOT/AST 19 U/L (15-37); SGPT/ALT 72 U/L (13-61)
[2020-10-21 07:33] LABS: BILIRUBIN,TOTAL 0.5 mg/dL (0.2-1)
[2020-10-21 07:38] LABS: ALK PHOS 123 U/L (45-117); CREATININE 8.2 mg/dL (0.55-1.3)
[2020-10-21] MEDS ORDERED: FUROSEMIDE 40 MG TABLET (FP) ONE ×2 (12:36→22:20)
[2020-10-21] MEDS ORDERED: PANTOPRAZOLE 40 MG TABLET ONE (12:36)
[2020-10-21] MEDS ORDERED: APIXABAN 2.5 MG TABLET ONE ×2 (12:37→22:20)
[2020-10-21] MEDS ORDERED: FERROUS SO4 325 MG TABLET (FP) ONE (12:37)
[2020-10-21] MEDS: APIXABAN 2.5 MG TABLET PO SCH ×2 (12:48→22:54)
[2020-10-21] MEDS: FERROUS SO4 325 MG TABLET (FP) PO SCH (12:48)
[2020-10-21] MEDS: PANTOPRAZOLE 40 MG TABLET PO SCH (12:48)
[2020-10-21] MEDS: CALCIUM ACETATE 667 MG CAPSULE (FP) PO SCH ×3 (12:48→18:11)
[2020-10-21] MEDS: FUROSEMIDE 40 MG TABLET (FP) PO SCH ×2 (12:48→22:54)
[2020-10-21] MEDS ORDERED: ACETAMINOPHEN 325 MG TABLET (FP) ONE (12:49)
[2020-10-21] MEDS ORDERED: oxyCODONE HCL 5 MG TABLET ONE ×2 (12:50→21:47)
[2020-10-21] MEDS: INSULIN (LEVEMIR) 100 UNITS/ML UNITS SQ SCH (13:03)
[2020-10-21] MEDS: INSULIN SLIDING SCALE (NOVOLOG) 1 VIAL SQ SCH ×3 (13:03→15:50)
[2020-10-21] MEDS ORDERED: oxyCODONE HCL 5 MG TABLET PO PRN (16:32)
[2020-10-21] MEDS ORDERED: VANCOMYCIN 1 GRAM (PRE-DOCKED) 1,000 MG/250 ML BAG IVPB ONE ×2 (17:45→17:49)
[2020-10-21] MEDS ORDERED: PIPERACILLIN/TAZOB 2.25 GM 2.25 GM/50 ML BAG IVPB ONE (17:49)
[2020-10-21 19:20] LABS: EPI CELLS 35 /uL (0-25.1); HYALINE CASTS 1 /uL (0-3.1); URINE APPEARANCE TURBID; URINE BACTERIA 1481 /uL (0-1359); URINE BILIRUBIN NEGATIVE (NEGATIVE); URINE COLOR YELLOW; URINE GLUCOSE (UA) 3+ (NEGATIVE); URINE KETONE NEGATIVE (NEGATIVE); URINE LEUK ESTERASE 2+ (NEGATIVE); URINE NITRITE NEGATIVE (NEGATIVE); URINE PROTEIN 4+ (NEGATIVE); URINE RBC 27 /uL (0-23.9); URINE UROBILINOGEN 0.2 mg/dL (0.2-1.0); URINE WBC 1086 /uL (0-25.8)
[2020-10-21] MEDS: oxyCODONE HCL 5 MG TABLET PO PRN (21:51)
[2020-10-21] MEDS ORDERED: ATORVASTATIN CA 80 MG TABLET (FP) ONE (22:20)
[2020-10-21] MEDS ORDERED: DOCUSATE SODIUM 100 MG CAPSULE (FP) PO ONE (22:21)
[2020-10-21] MEDS: ATORVASTATIN CA 80 MG TABLET (FP) PO SCH (22:54)
[2020-10-21] MEDS: PIPERACILLIN/TAZOB 2.25 GM 2.25 GM in DEXTROSE 5%-WATER - 50 ML IVPB SCH (22:55)
[2020-10-22] MEDS ORDERED: PIPERACILLIN/TAZOBACTAM 2.25 GM VIAL IVPB ONE ×3 (03:37→18:10)
[2020-10-22] MEDS ORDERED: DEXTROSE 5%-WATER - 50 ML IVPB ONE ×3 (03:37→18:10)
[2020-10-22] MEDS: PIPERACILLIN/TAZOB 2.25 GM 2.25 GM in DEXTROSE 5%-WATER - 50 ML IVPB SCH ×3 (04:00→18:13)
[2020-10-22] MEDS: LEVOTHYROXINE NA 25 MCG TABLET (FP) PO SCH (06:52)
[2020-10-22] MEDS: INSULIN SLIDING SCALE (NOVOLOG) 1 VIAL SQ SCH ×3 (06:53→17:36)
[2020-10-22] MEDS: GABAPENTIN 300 MG CAPSULE PO SCH ×3 (06:53→22:21)
[2020-10-22] MEDS: DOCUSATE SODIUM 100 MG CAPSULE (FP) PO SCH ×3 (06:53→22:21)
[2020-10-22] MEDS: INSULIN (LEVEMIR) 100 UNITS/ML UNITS SQ SCH (06:57)
[2020-10-22 07:47] LABS: BASO % 0.6 % (0-2.0); EOS % 3.5 % (0-4.5); HEMATOCRIT 28.3 % (35.4-49); HEMOGLOBIN 9.1 GM/dL (11.7-16.9); LYMPH % 11.5 % (8-40); MCH 30.7 pg (25.7-33.7); MCHC 32.1 g/dl (32.0-35.9); MEAN CELL VOLUME 95.6 fl (80-96); MEAN PLT VOLUME 8.1 fl (7.5-11.1); MONO % 9.7 % (3.8-10.2); NEUT % 74.7 % (42.8-82.8); PLATELET COUNT 225 K/MM3 (134-434); RBC 2.96 M/mm3 (4.00-5.60); RDW 17.1 % (11.9-15.9); WHITE BLOOD COUNT 13.2 K/mm3 (4.0-10.0)
[2020-10-22 07:59] LABS: CHLORIDE 99 mmol/L (98-107); SODIUM 131 mmol/L (136-145)
[2020-10-22 08:04] LABS: ALBUMIN 2.3 g/dl (3.4-5.0); BLOOD UREA NITROGEN 91.9 mg/dL (7-18); CO2 16 mmol/L (21-32); GLUCOSE,RANDOM 193 mg/dL (74-106)
[2020-10-22 08:07] LABS: SGOT/AST 11 U/L (15-37); SGPT/ALT 56 U/L (13-61)
[2020-10-22 08:08] LABS: BILIRUBIN,TOTAL 0.6 mg/dL (0.2-1)
[2020-10-22 08:09] LABS: TOT PROT 6.8 g/dl (6.4-8.2)
[2020-10-22 08:10] LABS: ALK PHOS 116 U/L (45-117)
[2020-10-22 08:11] LABS: ANION GAP 17 MMOL/L (8-16); CREATININE 9.7 mg/dL (0.55-1.3)
[2020-10-22] MEDS: FUROSEMIDE 40 MG TABLET (FP) PO SCH ×2 (09:48→22:21)
[2020-10-22] MEDS: CALCIUM ACETATE 667 MG CAPSULE (FP) PO SCH ×3 (09:48→16:44)
[2020-10-22] MEDS: FERROUS SO4 325 MG TABLET (FP) PO SCH (09:48)
[2020-10-22] MEDS: APIXABAN 2.5 MG TABLET PO SCH ×2 (09:49→22:21)
[2020-10-22] MEDS: oxyCODONE HCL 5 MG TABLET PO PRN (09:49)
[2020-10-22] MEDS: PANTOPRAZOLE 40 MG TABLET PO SCH (09:50)
[2020-10-22] MEDS ORDERED: EPOETIN ALFA-EPBX 10,000 UNIT/ML VIAL IVPUSH ONE (10:00)
[2020-10-22] MEDS ORDERED: SODIUM CHLORIDE 250 ML IV PRN (10:00)
[2020-10-22] MEDS: SODIUM HYPOCHLORITE 0.25%- 473 ML BULK BOTTLE TP SCH (10:42)
[2020-10-22] MEDS ORDERED: VANCOMYCIN 1 GRAM (PRE-DOCKED) 1,000 MG/250 ML BAG IVPB ONE (13:14)
[2020-10-22] MEDS: ACETAMINOPHEN 325 MG TABLET (FP) PO PRN (22:21)
[2020-10-22] MEDS: ATORVASTATIN CA 80 MG TABLET (FP) PO SCH (22:21)
[2020-10-23] MEDS ORDERED: DEXTROSE 5%-WATER - 50 ML IVPB ONE ×3 (01:16→17:10)
[2020-10-23] MEDS ORDERED: PIPERACILLIN/TAZOBACTAM 2.25 GM VIAL IVPB ONE ×3 (01:16→17:10)
[2020-10-23] MEDS: PIPERACILLIN/TAZOB 2.25 GM 2.25 GM in DEXTROSE 5%-WATER - 50 ML IVPB SCH ×3 (02:20→17:17)
[2020-10-23] MEDS: LEVOTHYROXINE NA 25 MCG TABLET (FP) PO SCH (06:40)
[2020-10-23] MEDS: DOCUSATE SODIUM 100 MG CAPSULE (FP) PO SCH ×3 (06:40→21:21)
[2020-10-23] MEDS: INSULIN SLIDING SCALE (NOVOLOG) 1 VIAL SQ SCH ×3 (06:40→16:37)
[2020-10-23 08:09] LABS: BASO % 0.7 % (0-2.0); EOS % 3.6 % (0-4.5); HEMATOCRIT 29.9 % (35.4-49); LYMPH % 10.7 % (8-40); MCH 31.1 pg (25.7-33.7); MCHC 33.4 g/dl (32.0-35.9); MEAN CELL VOLUME 93.2 fl (80-96); MONO % 10.4 % (3.8-10.2); NEUT % 74.6 % (42.8-82.8); PLATELET COUNT 205 K/MM3 (134-434); RBC 3.21 M/mm3 (4.00-5.60); RDW 17.2 % (11.9-15.9); WHITE BLOOD COUNT 9.6 K/mm3 (4.0-10.0)
[2020-10-23 08:27] LABS: CHLORIDE 99 mmol/L (98-107); SODIUM 136 mmol/L (136-145)
[2020-10-23 08:37] LABS: ALBUMIN 2.1 g/dl (3.4-5.0); ANION GAP 14 MMOL/L (8-16); CALCIUM 8.2 mg/dL (8.5-10.1); CO2 23 mmol/L (21-32); GLUCOSE,RANDOM 102 mg/dL (74-106)
[2020-10-23 08:40] LABS: SGOT/AST 12 U/L (15-37); SGPT/ALT 48 U/L (13-61)
[2020-10-23 08:42] LABS: BILIRUBIN,TOTAL 0.4 mg/dL (0.2-1); TOT PROT 6.9 g/dl (6.4-8.2)
[2020-10-23 08:43] LABS: ALK PHOS 118 U/L (45-117)
[2020-10-23 08:45] LABS: BLOOD UREA NITROGEN 63.4 mg/dL (7-18); CREATININE 7.6 mg/dL (0.55-1.3)
[2020-10-23] MEDS ORDERED: SODIUM CHLORIDE 250 ML IV PRN (09:47)
[2020-10-23] MEDS: FUROSEMIDE 40 MG TABLET (FP) PO SCH ×2 (09:52→21:21)
[2020-10-23] MEDS: CALCIUM ACETATE 667 MG CAPSULE (FP) PO SCH ×3 (09:52→17:18)
[2020-10-23] MEDS: APIXABAN 2.5 MG TABLET PO SCH ×2 (09:52→21:21)
[2020-10-23] MEDS: GABAPENTIN 300 MG CAPSULE PO SCH ×2 (09:52→21:21)
[2020-10-23] MEDS: PANTOPRAZOLE 40 MG TABLET PO SCH (09:52)
[2020-10-23] MEDS: FERROUS SO4 325 MG TABLET (FP) PO SCH (09:52)
[2020-10-23] MEDS: SODIUM HYPOCHLORITE 0.25%- 473 ML BULK BOTTLE TP SCH (09:52)
[2020-10-23] MEDS ORDERED: VANCOMYCIN 1 GRAM (PRE-DOCKED) 1,000 MG/250 ML BAG IVPB ONE (11:30)
[2020-10-23] MEDS: ACETAMINOPHEN 325 MG TABLET (FP) PO PRN (19:42)
[2020-10-23] MEDS: ATORVASTATIN CA 80 MG TABLET (FP) PO SCH (21:21)
[2020-10-23] MEDS ORDERED: oxyCODONE HCL 5 MG TABLET PO PRN (23:15)
[2020-10-24] MEDS ORDERED: PIPERACILLIN/TAZOBACTAM 2.25 GM VIAL IVPB ONE ×2 (00:14→13:56)
[2020-10-24] MEDS ORDERED: DEXTROSE 5%-WATER - 50 ML IVPB ONE ×2 (00:14→13:56)
[2020-10-24] MEDS: PIPERACILLIN/TAZOB 2.25 GM 2.25 GM in DEXTROSE 5%-WATER - 50 ML IVPB SCH ×3 (01:35→17:57)
[2020-10-24] MEDS: INSULIN (LEVEMIR) 100 UNITS/ML UNITS SQ SCH (06:14)
[2020-10-24] MEDS: DOCUSATE SODIUM 100 MG CAPSULE (FP) PO SCH ×3 (06:14→21:07)
[2020-10-24] MEDS: LEVOTHYROXINE NA 25 MCG TABLET (FP) PO SCH (06:14)
[2020-10-24] MEDS: INSULIN SLIDING SCALE (NOVOLOG) 1 VIAL SQ SCH ×3 (06:16→16:49)
[2020-10-24 07:46] LABS: CHLORIDE 98 mmol/L (98-107); SODIUM 134 mmol/L (136-145)
[2020-10-24 07:47] LABS: BASO % 0.3 % (0-2.0); EOS % 3.3 % (0-4.5); HEMATOCRIT 28.8 % (35.4-49); HEMOGLOBIN 9.7 GM/dL (11.7-16.9); MCH 31.3 pg (25.7-33.7); MCHC 33.7 g/dl (32.0-35.9); MEAN CELL VOLUME 92.7 fl (80-96); MONO % 10.8 % (3.8-10.2); NEUT % 78.6 % (42.8-82.8); PLATELET COUNT 231 K/MM3 (134-434); RDW 16.5 % (11.9-15.9); WHITE BLOOD COUNT 10.1 K/mm3 (4.0-10.0)
[2020-10-24 07:52] LABS: ANION GAP 16 MMOL/L (8-16); BLOOD UREA NITROGEN 76.4 mg/dL (7-18); CALCIUM 7.7 mg/dL (8.5-10.1); CO2 20 mmol/L (21-32); GLUCOSE,RANDOM 287 mg/dL (74-106)
[2020-10-24 07:55] LABS: SGOT/AST 6 U/L (15-37); SGPT/ALT 35 U/L (13-61)
[2020-10-24 07:57] LABS: BILIRUBIN,TOTAL 0.4 mg/dL (0.2-1); TOT PROT 6.8 g/dl (6.4-8.2)
[2020-10-24 07:58] LABS: ALK PHOS 117 U/L (45-117)
[2020-10-24 08:14] LABS: CREATININE 9.2 mg/dL (0.55-1.3)
[2020-10-24] MEDS: CALCIUM ACETATE 667 MG CAPSULE (FP) PO SCH ×3 (08:52→17:57)
[2020-10-24] MEDS ORDERED: EPOETIN ALFA-EPBX 10,000 UNIT/ML VIAL IVPUSH ONE ×2 (09:47→10:30)
[2020-10-24] MEDS ORDERED: SODIUM CHLORIDE 250 ML IV PRN (10:20)
[2020-10-24 12:33] LABS: HEP B CORE AB, TOT Negative (Negative)
[2020-10-24] MEDS: GABAPENTIN 300 MG CAPSULE PO SCH ×2 (14:08→21:07)
[2020-10-24] MEDS: FUROSEMIDE 40 MG TABLET (FP) PO SCH ×2 (14:08→21:07)
[2020-10-24] MEDS: FERROUS SO4 325 MG TABLET (FP) PO SCH (14:09)
[2020-10-24] MEDS: APIXABAN 2.5 MG TABLET PO SCH ×2 (14:09→21:07)
[2020-10-24] MEDS: SODIUM HYPOCHLORITE 0.25%- 473 ML BULK BOTTLE TP SCH (14:09)
[2020-10-24] MEDS: PANTOPRAZOLE 40 MG TABLET PO SCH (14:11)
[2020-10-24] MEDS: ATORVASTATIN CA 80 MG TABLET (FP) PO SCH (21:07)
[2020-10-24] MEDS: ACETAMINOPHEN 325 MG TABLET (FP) PO PRN (21:08)
[2020-10-24] MEDS: oxyCODONE HCL 5 MG TABLET PO PRN (21:14)
[2020-10-25] MEDS ORDERED: PIPERACILLIN/TAZOBACTAM 2.25 GM VIAL IVPB ONE ×3 (00:36→16:38)
[2020-10-25] MEDS ORDERED: DEXTROSE 5%-WATER - 50 ML IVPB ONE ×3 (00:37→16:39)
[2020-10-25] MEDS: PIPERACILLIN/TAZOB 2.25 GM 2.25 GM in DEXTROSE 5%-WATER - 50 ML IVPB SCH ×3 (01:48→17:50)
[2020-10-25] MEDS: DOCUSATE SODIUM 100 MG CAPSULE (FP) PO SCH ×3 (06:19→21:51)
[2020-10-25] MEDS: INSULIN SLIDING SCALE (NOVOLOG) 1 VIAL SQ SCH ×3 (06:20→16:52)
[2020-10-25] MEDS: LEVOTHYROXINE NA 25 MCG TABLET (FP) PO SCH (06:20)
[2020-10-25] MEDS: INSULIN (LEVEMIR) 100 UNITS/ML UNITS SQ SCH (06:21)
[2020-10-25] MEDS: CALCIUM ACETATE 667 MG CAPSULE (FP) PO SCH ×3 (08:35→16:55)
[2020-10-25 08:50] LABS: BASO % 0.6 % (0-2.0); EOS % 3.9 % (0-4.5); HEMATOCRIT 30.1 % (35.4-49); HEMOGLOBIN 10.1 GM/dL (11.7-16.9); LYMPH % 14.6 % (8-40); MCH 31.8 pg (25.7-33.7); MCHC 33.6 g/dl (32.0-35.9); MEAN CELL VOLUME 94.4 fl (80-96); MONO % 10.1 % (3.8-10.2); NEUT % 70.8 % (42.8-82.8); PLATELET COUNT 274 K/MM3 (134-434); RBC 3.18 M/mm3 (4.00-5.60); RDW 16.7 % (11.9-15.9); WHITE BLOOD COUNT 9.9 K/mm3 (4.0-10.0)
[2020-10-25 09:07] LABS: CALCIUM 8.8 mg/dL (8.5-10.1)
[2020-10-25 09:08] LABS: ALBUMIN 2.2 g/dl (3.4-5.0)
[2020-10-25 09:11] LABS: CREATININE 6.5 mg/dL (0.55-1.3)
[2020-10-25 09:13] LABS: BILIRUBIN,TOTAL 0.4 mg/dL (0.2-1); TOT PROT 7.3 g/dl (6.4-8.2)
[2020-10-25 09:14] LABS: BLOOD UREA NITROGEN 48.7 mg/dL (7-18)
[2020-10-25] MEDS: FERROUS SO4 325 MG TABLET (FP) PO SCH (10:14)
[2020-10-25] MEDS: FUROSEMIDE 40 MG TABLET (FP) PO SCH ×2 (10:14→21:52)
[2020-10-25] MEDS: APIXABAN 2.5 MG TABLET PO SCH ×2 (10:14→21:52)
[2020-10-25] MEDS: PANTOPRAZOLE 40 MG TABLET PO SCH (10:14)
[2020-10-25] MEDS: GABAPENTIN 300 MG CAPSULE PO SCH ×2 (10:14→21:52)
[2020-10-25] MEDS: SODIUM HYPOCHLORITE 0.25%- 473 ML BULK BOTTLE TP SCH (10:15)
[2020-10-25] MEDS: oxyCODONE HCL 5 MG TABLET PO PRN ×2 (13:57→17:51)
[2020-10-25] MEDS ORDERED: VANCOMYCIN 1 GRAM (PRE-DOCKED) 1,000 MG/250 ML BAG IVPB ONE (16:07)
[2020-10-25] MEDS: ATORVASTATIN CA 80 MG TABLET (FP) PO SCH (21:52)
[2020-10-25] MEDS ORDERED: INSULIN (NOVOLOG) ASPART 100 UNITS/ML 10ML VIAL SQ ONE (23:03)
[2020-10-26] MEDS ORDERED: DEXTROSE 5%-WATER - 50 ML IVPB ONE ×3 (02:09→16:19)
[2020-10-26] MEDS ORDERED: PIPERACILLIN/TAZOBACTAM 2.25 GM VIAL IVPB ONE ×3 (02:09→16:19)
[2020-10-26] MEDS: PIPERACILLIN/TAZOB 2.25 GM 2.25 GM in DEXTROSE 5%-WATER - 50 ML IVPB SCH ×3 (02:56→17:06)
[2020-10-26] MEDS: oxyCODONE HCL 5 MG TABLET PO PRN ×3 (04:41→21:56)
[2020-10-26] MEDS: DOCUSATE SODIUM 100 MG CAPSULE (FP) PO SCH ×3 (05:08→21:53)
[2020-10-26] MEDS: LEVOTHYROXINE NA 25 MCG TABLET (FP) PO SCH (06:32)
[2020-10-26] MEDS: INSULIN (LEVEMIR) 100 UNITS/ML UNITS SQ SCH (06:32)
[2020-10-26] MEDS: INSULIN SLIDING SCALE (NOVOLOG) 1 VIAL SQ SCH ×3 (06:34→17:08)
[2020-10-26] MEDS: CALCIUM ACETATE 667 MG CAPSULE (FP) PO SCH ×3 (08:28→17:07)
[2020-10-26] MEDS: FUROSEMIDE 40 MG TABLET (FP) PO SCH ×2 (10:04→21:53)
[2020-10-26] MEDS: PANTOPRAZOLE 40 MG TABLET PO SCH (10:05)
[2020-10-26] MEDS: FERROUS SO4 325 MG TABLET (FP) PO SCH (10:05)
[2020-10-26] MEDS: APIXABAN 2.5 MG TABLET PO SCH ×2 (10:05→21:53)
[2020-10-26] MEDS: GABAPENTIN 300 MG CAPSULE PO SCH ×2 (10:05→21:53)
[2020-10-26] MEDS: SODIUM HYPOCHLORITE 0.25%- 473 ML BULK BOTTLE TP SCH (10:06)
[2020-10-26] MEDS: ACETAMINOPHEN 325 MG TABLET (FP) PO PRN (21:53)
[2020-10-26] MEDS: ATORVASTATIN CA 80 MG TABLET (FP) PO SCH (21:53)
[2020-10-27] MEDS ORDERED: PIPERACILLIN/TAZOBACTAM 2.25 GM VIAL IVPB ONE ×3 (01:22→18:04)
[2020-10-27] MEDS ORDERED: DEXTROSE 5%-WATER - 50 ML IVPB ONE ×3 (01:23→18:04)
[2020-10-27] MEDS: PIPERACILLIN/TAZOB 2.25 GM 2.25 GM in DEXTROSE 5%-WATER - 50 ML IVPB SCH ×3 (01:24→18:06)
[2020-10-27] MEDS: LEVOTHYROXINE NA 25 MCG TABLET (FP) PO SCH (06:34)
[2020-10-27] MEDS: DOCUSATE SODIUM 100 MG CAPSULE (FP) PO SCH ×3 (06:34→21:05)
[2020-10-27] MEDS: INSULIN (LEVEMIR) 100 UNITS/ML UNITS SQ SCH (06:39)
[2020-10-27] MEDS: INSULIN SLIDING SCALE (NOVOLOG) 1 VIAL SQ SCH ×3 (06:40→16:30)
[2020-10-27 07:52] LABS: BASO % 0.3 % (0-2.0); EOS % 4.2 % (0-4.5); HEMATOCRIT 28.1 % (35.4-49); HEMOGLOBIN 9.3 GM/dL (11.7-16.9); LYMPH % 11.2 % (8-40); MCH 31.3 pg (25.7-33.7); MEAN CELL VOLUME 94.8 fl (80-96); MEAN PLT VOLUME 7.7 fl (7.5-11.1); NEUT % 74.3 % (42.8-82.8); PLATELET COUNT 228 K/MM3 (134-434); RBC 2.97 M/mm3 (4.00-5.60); RDW 16.3 % (11.9-15.9); WHITE BLOOD COUNT 10.8 K/mm3 (4.0-10.0)
[2020-10-27 08:09] LABS: CHLORIDE 96 mmol/L (98-107); SODIUM 136 mmol/L (136-145)
[2020-10-27 08:11] LABS: CALCIUM 7.6 mg/dL (8.5-10.1)
[2020-10-27 08:12] LABS: ALBUMIN 1.9 g/dl (3.4-5.0); ANION GAP 16 MMOL/L (8-16); CO2 24 mmol/L (21-32); GLUCOSE,RANDOM 214 mg/dL (74-106)
[2020-10-27 08:15] LABS: SGOT/AST 17 U/L (15-37); SGPT/ALT 27 U/L (13-61)
[2020-10-27 08:16] LABS: BILIRUBIN,TOTAL 0.3 mg/dL (0.2-1); TOT PROT 6.6 g/dl (6.4-8.2)
[2020-10-27 08:18] LABS: ALK PHOS 133 U/L (45-117)
[2020-10-27 08:22] LABS: BLOOD UREA NITROGEN 73.7 mg/dL (7-18); CREATININE 9.1 mg/dL (0.55-1.3)
[2020-10-27] MEDS ORDERED: PT OWN MED DRAWER 7, Y5N ONE (10:35)
[2020-10-27] MEDS: FERROUS SO4 325 MG TABLET (FP) PO SCH (10:44)
[2020-10-27] MEDS: APIXABAN 2.5 MG TABLET PO SCH ×2 (10:44→21:05)
[2020-10-27] MEDS: PANTOPRAZOLE 40 MG TABLET PO SCH (10:45)
[2020-10-27] MEDS: GABAPENTIN 300 MG CAPSULE PO SCH ×2 (10:45→21:06)
[2020-10-27] MEDS: FUROSEMIDE 40 MG TABLET (FP) PO SCH ×2 (10:45→21:05)
[2020-10-27] MEDS: SODIUM HYPOCHLORITE 0.25%- 473 ML BULK BOTTLE TP SCH (10:46)
[2020-10-27] MEDS: oxyCODONE HCL 5 MG TABLET PO PRN ×2 (10:58→21:07)
[2020-10-27] MEDS ORDERED: INSULIN (NOVOLOG) ASPART 100 UNITS/ML 10ML VIAL ONE (11:05)
[2020-10-27] MEDS: CALCIUM ACETATE 667 MG CAPSULE (FP) PO SCH ×3 (12:40→18:00)
[2020-10-27] MEDS ORDERED: SODIUM CHLORIDE 250 ML IV PRN (12:46)
[2020-10-27] MEDS ORDERED: EPOETIN ALFA-EPBX 4,000 UNIT/ML VIAL SQ ONE (13:00)
[2020-10-27] MEDS ORDERED: VANCOMYCIN 1 GRAM (PRE-DOCKED) 1,000 MG/250 ML BAG IVPB ONE (20:01)
[2020-10-27] MEDS: ATORVASTATIN CA 80 MG TABLET (FP) PO SCH (21:06)
[2020-10-28] MEDS ORDERED: INSULIN (NOVOLOG) ASPART 100 UNITS/ML 10ML VIAL SQ ONE (00:01)
[2020-10-28] MEDS ORDERED: PIPERACILLIN/TAZOBACTAM 2.25 GM VIAL IVPB ONE ×3 (00:26→17:25)
[2020-10-28] MEDS ORDERED: DEXTROSE 5%-WATER - 50 ML IVPB ONE ×3 (00:26→17:26)
[2020-10-28] MEDS: PIPERACILLIN/TAZOB 2.25 GM 2.25 GM in DEXTROSE 5%-WATER - 50 ML IVPB SCH ×3 (02:00→17:37)
[2020-10-28] MEDS: DOCUSATE SODIUM 100 MG CAPSULE (FP) PO SCH ×3 (05:38→21:56)
[2020-10-28] MEDS: INSULIN (LEVEMIR) 100 UNITS/ML UNITS SQ SCH (06:08)
[2020-10-28] MEDS: LEVOTHYROXINE NA 25 MCG TABLET (FP) PO SCH (06:09)
[2020-10-28] MEDS: INSULIN SLIDING SCALE (NOVOLOG) 1 VIAL SQ SCH ×3 (06:09→17:01)
[2020-10-28] MEDS ORDERED: MIDAZOLAM HCL 2 MG/2 ML SINGLE DOSE VIAL ONE (07:15)
[2020-10-28] MEDS ORDERED: LIDOCAINE HCL 2% (20ML MULTI-DOSE VIAL) ONE (07:19)
[2020-10-28] MEDS ORDERED: VANCOMYCIN 1,000 MG VIAL (RESTRICTED TO ID ONLY) ONE ×2 (07:31→07:35)
[2020-10-28] MEDS: CALCIUM ACETATE 667 MG CAPSULE (FP) PO SCH ×3 (08:00→17:05)
[2020-10-28] MEDS ORDERED: LIDOCAINE HCL 2% (50ML VIAL) NR ONE (08:01)
[2020-10-28] MEDS ORDERED: VANCOMYCIN 500 MG VIAL (RESTRICTED TO ID ONLY) IVPB ONE (08:14)
[2020-10-28] MEDS ORDERED: oxyCODONE HCL 5 MG TABLET PO PRN (09:19)
[2020-10-28] MEDS ORDERED: ACETAMINOPHEN 500 MG TABLET (FP) PO PRN (09:36)
[2020-10-28] MEDS: PANTOPRAZOLE 40 MG TABLET PO SCH (10:30)
[2020-10-28] MEDS: APIXABAN 2.5 MG TABLET PO SCH ×2 (10:30→21:56)
[2020-10-28] MEDS: FUROSEMIDE 40 MG TABLET (FP) PO SCH ×2 (10:30→14:24)
[2020-10-28] MEDS: FERROUS SO4 325 MG TABLET (FP) PO SCH (10:30)
[2020-10-28] MEDS: GABAPENTIN 300 MG CAPSULE PO SCH ×2 (10:30→21:56)
[2020-10-28] MEDS ORDERED: BISACODYL 5 MG TABLET.DR (FP) PO ONE (14:08)
[2020-10-28] MEDS ORDERED: INSULIN (LEVEMIR) 100 UNITS/ML UNITS SQ ONE (21:20)
[2020-10-28] MEDS ORDERED: INSULIN (NOVOLOG) ASPART 100 UNITS/ML 10ML VIAL ONE (21:20)
[2020-10-28] MEDS: ATORVASTATIN CA 80 MG TABLET (FP) PO SCH (21:56)
[2020-10-29] MEDS ORDERED: DEXTROSE 5%-WATER - 50 ML IVPB ONE ×4 (00:57→17:42)
[2020-10-29] MEDS ORDERED: PIPERACILLIN/TAZOBACTAM 2.25 GM VIAL IVPB ONE ×4 (00:57→17:42)
[2020-10-29] MEDS: PIPERACILLIN/TAZOB 2.25 GM 2.25 GM in DEXTROSE 5%-WATER - 50 ML IVPB SCH ×3 (01:13→17:52)
[2020-10-29] MEDS: SENNOSIDES 8.6MG TABLET (FP) PO PRN (01:13)
[2020-10-29] MEDS: LACTULOSE 20 GM/30 ML UDC (FOR ORAL USE ONLY) PO PRN (01:13)
[2020-10-29] MEDS: FUROSEMIDE 40 MG TABLET (FP) PO SCH ×2 (06:07→14:18)
[2020-10-29] MEDS: DOCUSATE SODIUM 100 MG CAPSULE (FP) PO SCH ×3 (06:07→22:03)
[2020-10-29] MEDS: LEVOTHYROXINE NA 25 MCG TABLET (FP) PO SCH (06:07)
[2020-10-29] MEDS: INSULIN SLIDING SCALE (NOVOLOG) 1 VIAL SQ SCH ×3 (06:08→17:06)
[2020-10-29] MEDS: INSULIN (LEVEMIR) 100 UNITS/ML UNITS SQ SCH (06:09)
[2020-10-29] MEDS: oxyCODONE HCL 5 MG TABLET PO PRN ×3 (06:37→22:07)
[2020-10-29] MEDS ORDERED: PT OWN MED DRAWER 7, Y5N ONE (06:41)
[2020-10-29] MEDS: AMINO ACIDS/PROTEIN HYDROLYS 30 ML LIQUID.PKT PO SCH (07:51)
[2020-10-29] MEDS: CALCIUM ACETATE 667 MG CAPSULE (FP) PO SCH ×3 (07:51→17:51)
[2020-10-29] MEDS ORDERED: SODIUM CHLORIDE 250 ML IV PRN (10:00)
[2020-10-29] MEDS ORDERED: EPOETIN ALFA-EPBX 4,000 UNIT/ML VIAL IVPUSH ONE (10:15)
[2020-10-29] MEDS: PANTOPRAZOLE 40 MG TABLET PO SCH (10:24)
[2020-10-29] MEDS: APIXABAN 2.5 MG TABLET PO SCH ×2 (10:24→22:04)
[2020-10-29] MEDS: FERROUS SO4 325 MG TABLET (FP) PO SCH (10:24)
[2020-10-29] MEDS: GABAPENTIN 300 MG CAPSULE PO SCH ×2 (10:24→22:04)
[2020-10-29] MEDS ORDERED: VANCOMYCIN 1 GRAM (PRE-DOCKED) 1,000 MG/250 ML BAG IVPB ONE (14:45)
[2020-10-29] MEDS: ATORVASTATIN CA 80 MG TABLET (FP) PO SCH (22:03)
[2020-10-30] MEDS ORDERED: PIPERACILLIN/TAZOBACTAM 2.25 GM VIAL IVPB ONE ×2 (01:53→09:47)
[2020-10-30] MEDS ORDERED: DEXTROSE 5%-WATER - 50 ML IVPB ONE ×2 (01:53→09:47)
[2020-10-30] MEDS: PIPERACILLIN/TAZOB 2.25 GM 2.25 GM in DEXTROSE 5%-WATER - 50 ML IVPB SCH ×4 (02:59→17:08)
[2020-10-30] MEDS ORDERED: INSULIN (NOVOLOG) ASPART 100 UNITS/ML 10ML VIAL ONE (05:47)
[2020-10-30] MEDS: FUROSEMIDE 40 MG TABLET (FP) PO SCH ×2 (06:28→13:14)
[2020-10-30] MEDS: LEVOTHYROXINE NA 25 MCG TABLET (FP) PO SCH (06:28)
[2020-10-30] MEDS: DOCUSATE SODIUM 100 MG CAPSULE (FP) PO SCH ×3 (06:28→22:12)
[2020-10-30] MEDS: ACETAMINOPHEN 325 MG TABLET (FP) PO PRN (06:29)
[2020-10-30] MEDS: INSULIN (LEVEMIR) 100 UNITS/ML UNITS SQ SCH (06:31)
[2020-10-30] MEDS: INSULIN SLIDING SCALE (NOVOLOG) 1 VIAL SQ SCH ×3 (06:31→16:24)
[2020-10-30] MEDS: oxyCODONE HCL 5 MG TABLET PO PRN ×3 (06:40→22:13)
[2020-10-30] MEDS: CALCIUM ACETATE 667 MG CAPSULE (FP) PO SCH ×3 (08:20→17:08)
[2020-10-30] MEDS: AMINO ACIDS/PROTEIN HYDROLYS 30 ML LIQUID.PKT PO SCH (08:20)
[2020-10-30] MEDS: GABAPENTIN 300 MG CAPSULE PO SCH ×2 (09:59→22:13)
[2020-10-30] MEDS: FERROUS SO4 325 MG TABLET (FP) PO SCH (09:59)
[2020-10-30] MEDS: APIXABAN 2.5 MG TABLET PO SCH ×2 (09:59→22:13)
[2020-10-30] MEDS: PANTOPRAZOLE 40 MG TABLET PO SCH (09:59)
[2020-10-30] MEDS ORDERED: VANCOMYCIN 1 GRAM (PRE-DOCKED) 1,000 MG/250 ML BAG IVPB ONE ×2 (18:00→18:45)
[2020-10-30] MEDS: ATORVASTATIN CA 80 MG TABLET (FP) PO SCH (22:13)
[2020-10-31] MEDS ORDERED: PIPERACILLIN/TAZOBACTAM 2.25 GM VIAL IVPB ONE ×2 (02:53→17:29)
[2020-10-31] MEDS ORDERED: DEXTROSE 5%-WATER - 50 ML IVPB ONE ×2 (02:53→17:29)
[2020-10-31] MEDS: PIPERACILLIN/TAZOB 2.25 GM 2.25 GM in DEXTROSE 5%-WATER - 50 ML IVPB SCH ×3 (02:59→18:15)
[2020-10-31] MEDS: INSULIN (LEVEMIR) 100 UNITS/ML UNITS SQ SCH (06:30)
[2020-10-31] MEDS: oxyCODONE HCL 5 MG TABLET PO PRN (06:30)
[2020-10-31] MEDS: DOCUSATE SODIUM 100 MG CAPSULE (FP) PO SCH ×5 (06:30→21:11)
[2020-10-31] MEDS: LEVOTHYROXINE NA 25 MCG TABLET (FP) PO SCH (06:30)
[2020-10-31] MEDS: FUROSEMIDE 40 MG TABLET (FP) PO SCH ×3 (06:30→16:48)
[2020-10-31] MEDS: INSULIN SLIDING SCALE (NOVOLOG) 1 VIAL SQ SCH ×3 (06:31→16:57)
[2020-10-31 08:18] LABS: HEMATOCRIT 27.4 % (35.4-49); HEMOGLOBIN 8.8 GM/dL (11.7-16.9); MCH 30.5 pg (25.7-33.7); MCHC 32.2 g/dl (32.0-35.9); MEAN CELL VOLUME 94.9 fl (80-96); PLATELET COUNT 207 K/MM3 (134-434); RBC 2.88 M/mm3 (4.00-5.60); RDW 16.1 % (11.9-15.9); WHITE BLOOD COUNT 7.7 K/mm3 (4.0-10.0)
[2020-10-31] MEDS: AMINO ACIDS/PROTEIN HYDROLYS 30 ML LIQUID.PKT PO SCH (08:55)
[2020-10-31] MEDS: CALCIUM ACETATE 667 MG CAPSULE (FP) PO SCH ×3 (08:55→16:44)
[2020-10-31] MEDS ORDERED: SODIUM CHLORIDE 250 ML IV PRN (10:43)
[2020-10-31] MEDS ORDERED: EPOETIN ALFA-EPBX 4,000 UNIT/ML VIAL SQ ONE (11:15)
[2020-10-31] MEDS: PANTOPRAZOLE 40 MG TABLET PO SCH ×2 (11:34→16:48)
[2020-10-31] MEDS: GABAPENTIN 300 MG CAPSULE PO SCH ×4 (11:34→21:12)
[2020-10-31] MEDS: APIXABAN 2.5 MG TABLET PO SCH ×3 (11:34→21:12)
[2020-10-31] MEDS: FERROUS SO4 325 MG TABLET (FP) PO SCH ×2 (11:34→16:44)
[2020-10-31] MEDS ORDERED: PORTA CATH FLUSH 10 ML IVPUSH PRN (14:41)
[2020-10-31] MEDS ORDERED: DAPTOMYCIN 600 MG in SODIUM CHLORIDE 50 ML IVPB ONE (16:00)
[2020-10-31] MEDS: LACTULOSE 20 GM/30 ML UDC (FOR ORAL USE ONLY) PO PRN ×2 (16:43→20:30)
[2020-10-31] MEDS: SENNOSIDES 8.6MG TABLET (FP) PO PRN ×2 (16:45→20:30)
[2020-10-31] MEDS: ACETAMINOPHEN 325 MG TABLET (FP) PO PRN ×2 (16:47→21:38)
[2020-10-31 20:55] VITALS: BMI 42.3
[2020-10-31] MEDS ORDERED: oxyCODONE HCL 5 MG TABLET PO ONE (21:22)
[2020-11-01] MEDS ORDERED: PIPERACILLIN/TAZOBACTAM 2.25 GM VIAL IVPB ONE ×2 (02:16→09:17)
[2020-11-01] MEDS ORDERED: DEXTROSE 5%-WATER - 50 ML IVPB ONE ×2 (02:16→09:18)
[2020-11-01] MEDS: PIPERACILLIN/TAZOB 2.25 GM 2.25 GM in DEXTROSE 5%-WATER - 50 ML IVPB SCH ×2 (02:22→09:19)
[2020-11-01] MEDS: FUROSEMIDE 40 MG TABLET (FP) PO SCH ×2 (06:25→14:21)
[2020-11-01] MEDS: DOCUSATE SODIUM 100 MG CAPSULE (FP) PO SCH ×2 (06:25→14:21)
[2020-11-01] MEDS: LEVOTHYROXINE NA 25 MCG TABLET (FP) PO SCH (06:26)
[2020-11-01] MEDS ORDERED: INSULIN (NOVOLOG) ASPART 100 UNITS/ML 10ML VIAL ONE ×2 (06:31→11:01)
[2020-11-01] MEDS ORDERED: INSULIN (LEVEMIR) 100 UNITS/ML UNITS SQ ONE (06:32)
[2020-11-01] MEDS: INSULIN (LEVEMIR) 100 UNITS/ML UNITS SQ SCH (06:34)
[2020-11-01] MEDS: INSULIN SLIDING SCALE (NOVOLOG) 1 VIAL SQ SCH ×2 (06:34→11:02)
[2020-11-01] MEDS: CALCIUM ACETATE 667 MG CAPSULE (FP) PO SCH ×2 (09:20→11:46)
[2020-11-01] MEDS: PANTOPRAZOLE 40 MG TABLET PO SCH (09:21)
[2020-11-01] MEDS: AMINO ACIDS/PROTEIN HYDROLYS 30 ML LIQUID.PKT PO SCH (09:21)
[2020-11-01] MEDS: APIXABAN 2.5 MG TABLET PO SCH (09:21)
[2020-11-01] MEDS: FERROUS SO4 325 MG TABLET (FP) PO SCH (09:21)
[2020-11-01] MEDS: GABAPENTIN 300 MG CAPSULE PO SCH (09:21)
[2020-11-01] MEDS ORDERED: oxyCODONE HCL 5 MG TABLET PO PRN (10:44)
[2020-11-01 13:14] VITALS: BP 127/66; PULSE 78; TEMP 98.7
== END 2020-11-01 17:52 | disposition home health service (06) | DRG 314 ==
LOC: JER 11:52 → INTOOBSV 16:28 → JERBED 16:28 → J4W 10-22 03:12 → OBSVTOIN 10-22 12:34 → J6S 10-23 21:45
PROVIDERS: ADMIT Family Medicine; ATTEND Family Medicine
PROC: 5A1D70Z Performance of Urinary Filtration, Intermittent, Less than 6 Hours Per Day (ICD-10-PCS; 2020-10-22)
PROC: 5A1D70Z Performance of Urinary Filtration, Intermittent, Less than 6 Hours Per Day (ICD-10-PCS; 2020-10-24)
PROC: 5A1D70Z Performance of Urinary Filtration, Intermittent, Less than 6 Hours Per Day (ICD-10-PCS; 2020-10-27)
PROC: 0QBN0ZX Excision of Right Metatarsal, Open Approach, Diagnostic (ICD-10-PCS; 2020-10-28)
PROC: 3E10X8Z Irrigation of Skin and Mucous Membranes using Irrigating Substance (ICD-10-PCS; 2020-10-28)
PROC: 3E0102A Introduction of Anti-Infective Envelope into Subcutaneous Tissue, Open Approach (ICD-10-PCS; 2020-10-28)
PROC: 0QBN0ZZ Excision of Right Metatarsal, Open Approach (ICD-10-PCS; principal; 2020-10-28 07:30)
PROC: 5A1D70Z Performance of Urinary Filtration, Intermittent, Less than 6 Hours Per Day (ICD-10-PCS; 2020-10-29)
PROC: 02HV33Z Insertion of Infusion Device into Superior Vena Cava, Percutaneous Approach (ICD-10-PCS; 2020-10-31)
PROC: B518ZZA Fluoroscopy of Superior Vena Cava, Guidance (ICD-10-PCS; 2020-10-31)
PROC: 5A1D70Z Performance of Urinary Filtration, Intermittent, Less than 6 Hours Per Day (ICD-10-PCS; 2020-10-31)
DX: E11.69 Type 2 diabetes mellitus with other specified complication (principal); T87.43 Infection of amputation stump, right lower extremity; M86.8X6 Other osteomyelitis, lower leg; B96.4 Proteus (mirabilis) (morganii) as the cause of diseases classified elsewhere; B95.2 Enterococcus as the cause of diseases classified elsewhere; B95.7 Other staphylococcus as the cause of diseases classified elsewhere; E03.9 Hypothyroidism, unspecified; J45.909 Unspecified asthma, uncomplicated; I13.2 Hypertensive heart and chronic kidney disease with heart failure and with stage 5 chronic kidney disease, or end stage renal disease; E13.22 Other specified diabetes mellitus with diabetic chronic kidney disease; N18.6 End stage renal disease; I50.32 Chronic diastolic (congestive) heart failure; Z99.2 Dependence on renal dialysis; L03.115 Cellulitis of right lower limb; E66.9 Obesity, unspecified; Z68.42 Body mass index [BMI] 45.0-49.9, adult; R26.0 Ataxic gait; D63.1 Anemia in chronic kidney disease; K76.6 Portal hypertension; E11.42 Type 2 diabetes mellitus with diabetic polyneuropathy; K76.0 Fatty (change of) liver, not elsewhere classified; R29.898 Other symptoms and signs involving the musculoskeletal system; E11.621 Type 2 diabetes mellitus with foot ulcer; F41.9 Anxiety disorder, unspecified; E87.70 Fluid overload, unspecified; Y83.8 Other surgical procedures as the cause of abnormal reaction of the patient, or of later complication, without mention of misadventure at the time of the procedure; L97.518 Non-pressure chronic ulcer of other part of right foot with other specified severity; K59.09 Other constipation
CPT/HCPCS: 36415; 36558; 70450-TC; 70496-TC; 70551-TC; 73110-TC-RT-FY; 73130-TC-RT-FY; 73718-TC-RT; 75635-TC; 77001-TC-FY; 80053; 80061; 81003; 82550; 82553; 82607; 82728; 82962; 83540; 83550; 83721; 84439; 84443; 84484; 84550; 85025; 85027; 85610; 85730; 86704; 86706; 86707; 86708; 86709; 86803; 86850; 86900; 86901; 87040; 87070; 87075; 87186; 87205; 87340; 88305-TC; 88311-TC; 93005; 93010; 93970-TC; 94760; 97116-GP; 97162-GP; 99285-25; C1751; C9803; G0378; G0480; J0878; Q5106; Q9967; U0003; U0005

== ENCOUNTER 2020-12-22 09:41 | Observation (INO) | payer OTHER ==
[2020-12-22 10:16] VITALS: BMI 46.0
[2020-12-22 12:19] LABS: BASO % 0.3 % (0-2.0); EOS % 3.7 % (0-4.5); HEMATOCRIT 24.6 % (35.4-49); HEMOGLOBIN 7.8 GM/dL (11.7-16.9); LYMPH % 9.7 % (8-40); MCH 31.6 pg (25.7-33.7); MCHC 31.7 g/dl (32.0-35.9); MEAN CELL VOLUME 99.5 fl (80-96); MEAN PLT VOLUME 7.6 fl (7.5-11.1); MONO % 9.3 % (3.8-10.2); PLATELET COUNT 185 10^3/uL (134-434); RBC 2.47 M/mm3 (4.00-5.60); RDW 18.1 % (11.9-15.9); WHITE BLOOD COUNT 8.6 K/mm3 (4.0-10.0)
[2020-12-22 12:25] LABS: INR 1.39 (0.83-1.09); PROTHROMBIN TIME (PATIENT) 16.9 SEC (9.7-13.0)
[2020-12-22 12:27] LABS: ACTIVATED PTT 34.8 SECONDS (25.2-36.5)
[2020-12-22 12:46] LABS: CALCIUM 8.2 mg/dL (8.5-10.1)
[2020-12-22 12:47] LABS: ALBUMIN 2.3 g/dl (3.4-5.0); BLOOD UREA NITROGEN 29.3 mg/dL (7-18)
[2020-12-22 12:50] LABS: CREATININE 4.3 mg/dL (0.55-1.3)
[2020-12-22 12:52] LABS: BILIRUBIN,TOTAL 0.5 mg/dL (0.2-1); TOT PROT 7.1 g/dl (6.4-8.2)
[2020-12-22 12:55] LABS: N-TERMINAL BNP 22622.7 pg/ml (5-125)
[2020-12-22] MEDS: APIXABAN 2.5 MG TABLET PO SCH (23:35)
[2020-12-23 07:01] LABS: ALBUMIN 2.1 g/dl (3.4-5.0); BLOOD UREA NITROGEN 37.4 mg/dL (7-18); CALCIUM 8.5 mg/dL (8.5-10.1)
[2020-12-23 07:05] LABS: BILIRUBIN,TOTAL 0.4 mg/dL (0.2-1); CREATININE 5.7 mg/dL (0.55-1.3); TOT PROT 6.5 g/dl (6.4-8.2)
[2020-12-23 07:35] LABS: BASO % 0.3 % (0-2.0); EOS % 3.9 % (0-4.5); HEMATOCRIT 25.2 % (35.4-49); LYMPH % 14.9 % (8-40); MCH 31.9 pg (25.7-33.7); MCHC 31.8 g/dl (32.0-35.9); MEAN CELL VOLUME 100.2 fl (80-96); MEAN PLT VOLUME 8.5 fl (7.5-11.1); MONO % 8.4 % (3.8-10.2); NEUT % 72.5 % (42.8-82.8); PLATELET COUNT 173 10^3/uL (134-434); RBC 2.51 M/mm3 (4.00-5.60); RDW 18.4 % (11.9-15.9); WHITE BLOOD COUNT 6.8 K/mm3 (4.0-10.0)
[2020-12-23] MEDS: APIXABAN 2.5 MG TABLET PO SCH ×2 (09:03→21:57)
[2020-12-23] MEDS ORDERED: ACETAMINOPHEN 325 MG TABLET (FP) PO PRN (09:04)
[2020-12-23] MEDS: PANTOPRAZOLE 40 MG TABLET PO SCH (10:39)
[2020-12-23] MEDS: ASPIRIN 81 MG CHEWABLE TABLETS PO SCH (10:39)
[2020-12-23] MEDS: CALCIUM ACETATE 667 MG CAPSULE (FP) PO SCH ×2 (12:27→17:08)
[2020-12-23] MEDS ORDERED: SODIUM CHLORIDE 250 ML IV PRN (16:11)
[2020-12-23] MEDS ORDERED: SENNOSIDES 8.6MG TABLET (FP) PO PRN (22:00)
[2020-12-24] MEDS: LEVOTHYROXINE NA 25 MCG TABLET (FP) PO SCH (06:08)
[2020-12-24] MEDS: CALCIUM ACETATE 667 MG CAPSULE (FP) PO SCH ×3 (08:33→18:12)
[2020-12-24] MEDS: APIXABAN 2.5 MG TABLET PO SCH ×2 (10:16→21:43)
[2020-12-24] MEDS: ASPIRIN 81 MG CHEWABLE TABLETS PO SCH (10:16)
[2020-12-24] MEDS: PANTOPRAZOLE 40 MG TABLET PO SCH (10:16)
[2020-12-24 11:08] LABS: BASO % 0.4 % (0-2.0); EOS % 3.6 % (0-4.5); HEMATOCRIT 24.8 % (35.4-49); HEMOGLOBIN 7.9 GM/dL (11.7-16.9); LYMPH % 8.5 % (8-40); MEAN PLT VOLUME 7.6 fl (7.5-11.1); MONO % 8.8 % (3.8-10.2); NEUT % 78.7 % (42.8-82.8); PLATELET COUNT 192 10^3/uL (134-434); RBC 2.48 M/mm3 (4.00-5.60); RDW 17.9 % (11.9-15.9); WHITE BLOOD COUNT 6.6 K/mm3 (4.0-10.0)
[2020-12-24] MEDS ORDERED: EPOETIN ALFA-EPBX 10,000 UNIT/ML VIAL IVPUSH ONE (11:30)
[2020-12-24 11:31] LABS: CALCIUM 8.2 mg/dL (8.5-10.1)
[2020-12-24 11:32] LABS: ALBUMIN 2.2 g/dl (3.4-5.0); BLOOD UREA NITROGEN 56.4 mg/dL (7-18)
[2020-12-24 11:36] LABS: BILIRUBIN,TOTAL 0.6 mg/dL (0.2-1)
[2020-12-24 11:37] LABS: TOT PROT 6.9 g/dl (6.4-8.2)
[2020-12-24 11:44] LABS: CREATININE 7.4 mg/dL (0.55-1.3)
[2020-12-24] MEDS ORDERED: oxyCODONE HCL 5 MG TABLET PO ONE (21:59)
[2020-12-25] MEDS: LEVOTHYROXINE NA 25 MCG TABLET (FP) PO SCH (06:28)
[2020-12-25] MEDS: APIXABAN 2.5 MG TABLET PO SCH ×2 (09:07→21:09)
[2020-12-25] MEDS: CALCIUM ACETATE 667 MG CAPSULE (FP) PO SCH ×3 (09:07→17:13)
[2020-12-25] MEDS: ASPIRIN 81 MG CHEWABLE TABLETS PO SCH (09:07)
[2020-12-25] MEDS: PANTOPRAZOLE 40 MG TABLET PO SCH (09:07)
[2020-12-25] MEDS ORDERED: EPOETIN ALFA-EPBX 20,000 UNIT/ML VIAL SQ ONE (12:05)
[2020-12-25] MEDS: INSULIN SLIDING SCALE (NOVOLOG) 1 VIAL SQ SCH ×2 (17:16→21:09)
[2020-12-25] MEDS: ATORVASTATIN CA 40 MG TABLET (FP) PO SCH (21:09)
[2020-12-25] MEDS ORDERED: oxyCODONE HCL 5 MG TABLET PO ONE (21:21)
[2020-12-26] MEDS: LEVOTHYROXINE NA 25 MCG TABLET (FP) PO SCH (06:46)
[2020-12-26] MEDS: INSULIN SLIDING SCALE (NOVOLOG) 1 VIAL SQ SCH ×4 (06:46→22:02)
[2020-12-26] MEDS ORDERED: SODIUM CHLORIDE 250 ML IV PRN (07:16)
[2020-12-26] MEDS ORDERED: HEPARIN NA (PORCINE) 5,000 UNITS/ML 1ML VIAL IVPUSH ONE (07:30)
[2020-12-26] MEDS ORDERED: EPOETIN ALFA-EPBX 20,000 UNIT/ML VIAL SQ ONE (07:45)
[2020-12-26] MEDS: CALCIUM ACETATE 667 MG CAPSULE (FP) PO SCH ×3 (07:47→17:17)
[2020-12-26 08:43] LABS: HEMATOCRIT 24.1 % (35.4-49); HEMOGLOBIN 7.7 GM/dL (11.7-16.9); MCH 31.5 pg (25.7-33.7); MCHC 31.7 g/dl (32.0-35.9); MEAN CELL VOLUME 99.3 fl (80-96); PLATELET COUNT 206 10^3/uL (134-434); RBC 2.43 M/mm3 (4.00-5.60); RDW 18.4 % (11.9-15.9); WHITE BLOOD COUNT 6.2 K/mm3 (4.0-10.0)
[2020-12-26] MEDS ORDERED: PT OWN MED DRAWER 7, Y5N ONE (08:56)
[2020-12-26 09:07] LABS: CALCIUM 8.7 mg/dL (8.5-10.1)
[2020-12-26 09:08] LABS: BLOOD UREA NITROGEN 41.6 mg/dL (7-18)
[2020-12-26 09:11] LABS: CREATININE 6.1 mg/dL (0.55-1.3)
[2020-12-26] MEDS: ASPIRIN 81 MG CHEWABLE TABLETS PO SCH (11:43)
[2020-12-26] MEDS: PANTOPRAZOLE 40 MG TABLET PO SCH (11:44)
[2020-12-26] MEDS: APIXABAN 2.5 MG TABLET PO SCH ×2 (11:44→22:02)
[2020-12-26] MEDS: oxyCODONE HCL 5 MG TABLET PO PRN (13:43)
[2020-12-26] MEDS: ATORVASTATIN CA 40 MG TABLET (FP) PO SCH (22:02)
[2020-12-27] MEDS: oxyCODONE HCL 5 MG TABLET PO PRN (01:08)
[2020-12-27] MEDS: INSULIN SLIDING SCALE (NOVOLOG) 1 VIAL SQ SCH ×4 (06:45→21:34)
[2020-12-27] MEDS: LEVOTHYROXINE NA 25 MCG TABLET (FP) PO SCH (06:46)
[2020-12-27] MEDS: CALCIUM ACETATE 667 MG CAPSULE (FP) PO SCH ×3 (09:40→17:23)
[2020-12-27] MEDS: PANTOPRAZOLE 40 MG TABLET PO SCH (09:40)
[2020-12-27] MEDS: ASPIRIN 81 MG CHEWABLE TABLETS PO SCH (09:40)
[2020-12-27] MEDS: APIXABAN 2.5 MG TABLET PO SCH ×2 (09:40→21:34)
[2020-12-27] MEDS ORDERED: SODIUM CHLORIDE 250 ML IV PRN (11:10)
[2020-12-27 13:17] LABS: CALCIUM 8.4 mg/dL (8.5-10.1)
[2020-12-27 13:18] LABS: BLOOD UREA NITROGEN 28.2 mg/dL (7-18)
[2020-12-27 13:21] LABS: CREATININE 4.6 mg/dL (0.55-1.3)
[2020-12-27] MEDS: ATORVASTATIN CA 40 MG TABLET (FP) PO SCH (21:34)
[2020-12-28] MEDS: INSULIN SLIDING SCALE (NOVOLOG) 1 VIAL SQ SCH ×3 (06:38→17:12)
[2020-12-28 06:39] LABS: CALCIUM 8.7 mg/dL (8.5-10.1)
[2020-12-28] MEDS: LEVOTHYROXINE NA 25 MCG TABLET (FP) PO SCH (06:39)
[2020-12-28 06:43] LABS: CREATININE 4.3 mg/dL (0.55-1.3)
[2020-12-28] MEDS: CALCIUM ACETATE 667 MG CAPSULE (FP) PO SCH ×3 (08:25→17:10)
[2020-12-28 08:49] LABS: BASO % 0.8 % (0-2.0); EOS % 5.8 % (0-4.5); HEMATOCRIT 25.8 % (35.4-49); HEMOGLOBIN 8.5 GM/dL (11.7-16.9); LYMPH % 20.2 % (8-40); MCH 32.2 pg (25.7-33.7); MEAN CELL VOLUME 97.4 fl (80-96); MEAN PLT VOLUME 7.2 fl (7.5-11.1); MONO % 9.3 % (3.8-10.2); NEUT % 63.9 % (42.8-82.8); PLATELET COUNT 222 10^3/uL (134-434); RBC 2.65 M/mm3 (4.00-5.60); RDW 18.5 % (11.9-15.9)
[2020-12-28] MEDS: PANTOPRAZOLE 40 MG TABLET PO SCH (09:53)
[2020-12-28] MEDS: ASPIRIN 81 MG CHEWABLE TABLETS PO SCH (09:53)
[2020-12-28] MEDS: APIXABAN 2.5 MG TABLET PO SCH (09:53)
[2020-12-28] MEDS ORDERED: SODIUM CHLORIDE 250 ML IV PRN (11:59)
[2020-12-28 18:15] VITALS: BP 149/60; PULSE 85; TEMP 98.2
[2020-12-29] MEDS ORDERED: EPOETIN ALFA-EPBX 10,000 UNIT/ML VIAL IVPUSH ONE (06:00)
== END 2020-12-28 20:30 | disposition home or self-care (01) ==
LOC: JER 09:41 → INTOOBSV 14:33 → UNDOADMOB 14:33 → JERBED 14:33 → J4S 20:13 → JERBED 12-23 12:02 → J4S 12-23 12:02
PROVIDERS: ATTEND Family Medicine
PROC: 3E023GC Introduction of Other Therapeutic Substance into Muscle, Percutaneous Approach (ICD-10-PCS; principal; 2020-12-23)
PROC: 3E033GC Introduction of Other Therapeutic Substance into Peripheral Vein, Percutaneous Approach (ICD-10-PCS; 2020-12-23)
DX: I13.11 Hypertensive heart and chronic kidney disease without heart failure, with stage 5 chronic kidney disease, or end stage renal disease (principal); E03.9 Hypothyroidism, unspecified; N18.6 End stage renal disease; Z99.2 Dependence on renal dialysis; J45.909 Unspecified asthma, uncomplicated; I73.9 Peripheral vascular disease, unspecified; I70.90 Unspecified atherosclerosis; E11.622 Type 2 diabetes mellitus with other skin ulcer; L97.909 Non-pressure chronic ulcer of unspecified part of unspecified lower leg with unspecified severity; D64.9 Anemia, unspecified; Z86.16 Personal history of COVID-19; R41.82 Altered mental status, unspecified; R53.1 Weakness; E78.5 Hyperlipidemia, unspecified; K76.0 Fatty (change of) liver, not elsewhere classified; G47.30 Sleep apnea, unspecified; R05 Cough; E66.01 Morbid (severe) obesity due to excess calories; Z68.42 Body mass index [BMI] 45.0-49.9, adult; R59.0 Localized enlarged lymph nodes; G93.41 Metabolic encephalopathy; R00.0 Tachycardia, unspecified; D63.1 Anemia in chronic kidney disease; Z86.14 Personal history of Methicillin resistant Staphylococcus aureus infection; M54.9 Dorsalgia, unspecified; Z79.4 Long term (current) use of insulin; G89.29 Other chronic pain
CPT/HCPCS: 36415; 36589; 70450-TC; 71045-TC-FY; 71250-TC; 80048; 80053; 82550; 82553; 82962; 83880; 84484; 85025; 85027; 85610; 85730; 86140; 86803; 86850; 86900; 86901; 87340; 93005; 93010; 93306-TC; 93970-TC; 94010; 94761; 96372; 96374; 97116-GP; 97161-GP; 99285-25; C9803; G0378; J1644; Q5106; U0003; U0005

== ENCOUNTER 2020-12-30 13:51 | Emergency (ER) | payer OTHER ==
[2020-12-30 15:04] VITALS: BP 140/83; PULSE 86; TEMP 98.3; BMI 31.1
== END 2020-12-30 18:51 | disposition home or self-care (01) ==
LOC: JER 13:51
DX: E16.2 Hypoglycemia, unspecified (principal)
CPT/HCPCS: 82962; 93005; 93010; 99284-25

== ENCOUNTER 2021-01-12 13:33 | Inpatient (IN) | payer OTHER ==
[2021-01-12] MEDS ORDERED: VANCOMYCIN 1 GM in D5W (PRE-DOCKED) 1,000 MG/250 ML IVPB ONE (15:16)
[2021-01-12] MEDS ORDERED: VANCOMYCIN 1 GRAM (PRE-DOCKED) 1,000 MG/250 ML BAG IVPB ONE (15:47)
[2021-01-12 15:50] LABS: BASO % 0.6 % (0-2.0); EOS % 6.6 % (0-4.5); HEMATOCRIT 28.3 % (35.4-49); HEMOGLOBIN 9.3 GM/dL (11.7-16.9); LYMPH % 9.1 % (8-40); MCH 31.7 pg (25.7-33.7); MCHC 32.9 g/dl (32.0-35.9); MEAN CELL VOLUME 96.4 fl (80-96); MEAN PLT VOLUME 8.2 fl (7.5-11.1); MONO % 10.7 % (3.8-10.2); PLATELET COUNT 253 10^3/uL (134-434); RBC 2.93 M/mm3 (4.00-5.60); RDW 16.9 % (11.9-15.9); WHITE BLOOD COUNT 8.3 K/mm3 (4.0-10.0)
[2021-01-12 16:11] LABS: ALBUMIN 2.6 g/dl (3.4-5.0); BLOOD UREA NITROGEN 32.1 mg/dL (7-18); CALCIUM 9.1 mg/dL (8.5-10.1)
[2021-01-12 16:14] LABS: CREATININE 4.9 mg/dL (0.55-1.3)
[2021-01-12 16:16] LABS: BILIRUBIN,TOTAL 0.5 mg/dL (0.2-1); TOT PROT 7.8 g/dl (6.4-8.2)
[2021-01-12 16:40] LABS: INR 1.3 (0.83-1.09); PROTHROMBIN TIME (PATIENT) 15.9 SEC (9.7-13.0)
[2021-01-12 16:42] LABS: ACTIVATED PTT 32.7 SECONDS (25.2-36.5)
[2021-01-12 16:44] LABS: ERYTHROCYTE SEDIMENTATION RATE 105 mm/hr (0-20)
[2021-01-12] MEDS ORDERED: CEFEPIME HCL/D5W 2 GM/50 ML BAG IVPB ONE (17:33)
[2021-01-12] MEDS ORDERED: CEFEPIME 2 GM/100 ML BAG IVPB ONE (17:57)
[2021-01-12] MEDS ORDERED: SENNOSIDES 8.6MG TABLET (FP) PO PRN (21:56)
[2021-01-12] MEDS ORDERED: TIZANIDINE HCL 2 MG TABLET PO PRN (21:56)
[2021-01-12] MEDS ORDERED: VANCOMYCIN 1 GM in D5W (PRE-DOCKED) 1,000 MG/250 ML IVPB SCH (22:00)
[2021-01-12] MEDS: INSULIN SLIDING SCALE (NOVOLOG) 1 VIAL SQ SCH (22:06)
[2021-01-12] MEDS ORDERED: VANCOMYCIN 1 GRAM (PRE-DOCKED) 1,000 MG/250 ML BAG IVPB SCH ×2 (22:15)
[2021-01-12] MEDS ORDERED: CEFEPIME HCL/D5W 1 GM/50 ML BAG IVPB SCH (22:15)
[2021-01-12] MEDS ORDERED: oxyCODONE HCL 5 MG TABLET PO ONE (23:27)
[2021-01-12] MEDS: ACETAMINOPHEN 325 MG TABLET (FP) PO PRN (23:37)
[2021-01-12] MEDS: GABAPENTIN 300 MG CAPSULE PO SCH (23:40)
[2021-01-12] MEDS: ATORVASTATIN CA 40 MG TABLET (FP) PO SCH (23:40)
[2021-01-12] MEDS: FERROUS SO4 325 MG TABLET (FP) PO SCH (23:41)
[2021-01-13] MEDS ORDERED: oxyCODONE HCL 5 MG TABLET PO ONE (00:58)
[2021-01-13] MEDS: LEVOTHYROXINE NA 25 MCG TABLET (FP) PO SCH (06:02)
[2021-01-13] MEDS: GABAPENTIN 300 MG CAPSULE PO SCH ×3 (06:03→21:17)
[2021-01-13] MEDS: INSULIN SLIDING SCALE (NOVOLOG) 1 VIAL SQ SCH ×4 (06:03→21:20)
[2021-01-13 07:32] LABS: BASO % 0.5 % (0-2.0); EOS % 9.5 % (0-4.5); HEMATOCRIT 27.9 % (35.4-49); HEMOGLOBIN 9.1 GM/dL (11.7-16.9); LYMPH % 15.6 % (8-40); MCH 31.9 pg (25.7-33.7); MCHC 32.8 g/dl (32.0-35.9); MEAN CELL VOLUME 97.4 fl (80-96); MEAN PLT VOLUME 7.9 fl (7.5-11.1); MONO % 9.4 % (3.8-10.2); PLATELET COUNT 216 10^3/uL (134-434); RBC 2.86 M/mm3 (4.00-5.60); RDW 16.5 % (11.9-15.9); WHITE BLOOD COUNT 7.3 K/mm3 (4.0-10.0)
[2021-01-13 07:55] LABS: CALCIUM 9.3 mg/dL (8.5-10.1)
[2021-01-13 07:56] LABS: BLOOD UREA NITROGEN 38.6 mg/dL (7-18)
[2021-01-13 07:59] LABS: CREATININE 6.1 mg/dL (0.55-1.3)
[2021-01-13] MEDS ORDERED: ACETAMINOPHEN 1000 MG/100 ML VIAL (NON FORMULARY) IVPB PRN (08:24)
[2021-01-13] MEDS ORDERED: DOCUSATE SODIUM 100 MG CAPSULE (FP) PO PRN (08:24)
[2021-01-13] MEDS ORDERED: APIXABAN 2.5 MG TABLET PO ONE (10:00)
[2021-01-13] MEDS: CALCIUM ACETATE 667 MG CAPSULE (FP) PO SCH ×3 (10:53→18:14)
[2021-01-13] MEDS: ASPIRIN 81 MG CHEWABLE TABLETS PO SCH (10:54)
[2021-01-13] MEDS: PANTOPRAZOLE 40 MG TABLET PO SCH (10:54)
[2021-01-13] MEDS: FERROUS SO4 325 MG TABLET (FP) PO SCH ×2 (10:54→21:17)
[2021-01-13] MEDS ORDERED: PT OWN MED DRAWER 7, Y5N ONE (10:58)
[2021-01-13 11:12] LABS: ERYTHROCYTE SEDIMENTATION RATE 110 mm/hr (0-20)
[2021-01-13] MEDS: oxyCODONE HCL 5 MG TABLET PO PRN ×2 (14:10→23:34)
[2021-01-13 15:34] LABS: URIC ACID 4.2 mg/dL (2.6-7.2)
[2021-01-13] MEDS ORDERED: CEFEPIME 1 GM in DEXTROSE 5%-WATER 100 ML IVPB ONE ×3 (16:31→18:15)
[2021-01-13] MEDS ORDERED: SODIUM CHLORIDE 250 ML IV PRN (16:48)
[2021-01-13] MEDS ORDERED: CEFEPIME HCL/D5W 1 GM/50 ML BAG IVPB SCH (18:00)
[2021-01-13] MEDS ORDERED: CEFEPIME HCL 1 GM VIAL (RESTRICTED TO ID) ONE (18:09)
[2021-01-13] MEDS ORDERED: DEXTROSE 5%-WATER 100 ML IVPB ONE (18:09)
[2021-01-13] MEDS: ATORVASTATIN CA 40 MG TABLET (FP) PO SCH (21:17)
[2021-01-13] MEDS: ACETAMINOPHEN 325 MG TABLET (FP) PO PRN (23:36)
[2021-01-14] MEDS: GABAPENTIN 300 MG CAPSULE PO SCH ×3 (06:00→21:32)
[2021-01-14] MEDS: LEVOTHYROXINE NA 25 MCG TABLET (FP) PO SCH (06:00)
[2021-01-14] MEDS: INSULIN SLIDING SCALE (NOVOLOG) 1 VIAL SQ SCH ×4 (06:48→21:38)
[2021-01-14] MEDS: CALCIUM ACETATE 667 MG CAPSULE (FP) PO SCH ×3 (08:03→17:10)
[2021-01-14] MEDS ORDERED: APIXABAN 2.5 MG TABLET PO ONE (08:30)
[2021-01-14] MEDS ORDERED: EPOETIN ALFA-EPBX 10,000 UNIT/ML VIAL IVPUSH ONE (10:00)
[2021-01-14 10:29] LABS: HEMATOCRIT 24.8 % (35.4-49); HEMOGLOBIN 8.2 GM/dL (11.7-16.9); MCHC 33.1 g/dl (32.0-35.9); MEAN CELL VOLUME 96.6 fl (80-96); MEAN PLT VOLUME 8.2 fl (7.5-11.1); PLATELET COUNT 219 10^3/uL (134-434); RBC 2.57 M/mm3 (4.00-5.60); RDW 16.5 % (11.9-15.9); WHITE BLOOD COUNT 7.9 K/mm3 (4.0-10.0)
[2021-01-14 10:56] LABS: CHLORIDE 100 mmol/L (98-107); SODIUM 136 mmol/L (136-145)
[2021-01-14 10:57] LABS: CALCIUM 8.5 mg/dL (8.5-10.1)
[2021-01-14 10:58] LABS: ANION GAP 11 MMOL/L (8-16); BLOOD UREA NITROGEN 50.5 mg/dL (7-18); CO2 25 mmol/L (21-32); GLUCOSE,RANDOM 160 mg/dL (74-106)
[2021-01-14 11:04] LABS: CREATININE 7.6 mg/dL (0.55-1.3)
[2021-01-14] MEDS ORDERED: PT OWN MED DRAWER 7, Y5N ONE (13:53)
[2021-01-14] MEDS: FERROUS SO4 325 MG TABLET (FP) PO SCH ×2 (13:55→21:32)
[2021-01-14] MEDS: ASPIRIN 81 MG CHEWABLE TABLETS PO SCH (13:56)
[2021-01-14] MEDS: PANTOPRAZOLE 40 MG TABLET PO SCH (13:56)
[2021-01-14] MEDS: oxyCODONE HCL 5 MG TABLET PO PRN ×2 (15:00→23:37)
[2021-01-14 20:07] LABS: IgG Ab 23 kDa Band Absent (.); IgG Ab 28 kDa Band Absent (.)
[2021-01-14] MEDS: ATORVASTATIN CA 40 MG TABLET (FP) PO SCH (21:32)
[2021-01-14] MEDS ORDERED: APIXABAN 2.5 MG TABLET PO SCH (22:00)
[2021-01-15] MEDS: ACETAMINOPHEN 325 MG TABLET (FP) PO PRN ×2 (06:11→22:56)
[2021-01-15] MEDS: GABAPENTIN 300 MG CAPSULE PO SCH ×3 (06:11→22:55)
[2021-01-15] MEDS: LEVOTHYROXINE NA 25 MCG TABLET (FP) PO SCH (06:12)
[2021-01-15] MEDS: INSULIN SLIDING SCALE (NOVOLOG) 1 VIAL SQ SCH ×4 (06:16→22:56)
[2021-01-15] MEDS: CALCIUM ACETATE 667 MG CAPSULE (FP) PO SCH ×3 (08:24→17:05)
[2021-01-15 08:59] LABS: BASO % 0.5 % (0-2.0); EOS % 6.9 % (0-4.5); HEMATOCRIT 27.1 % (35.4-49); HEMOGLOBIN 8.9 GM/dL (11.7-16.9); LYMPH % 14.3 % (8-40); MCH 31.9 pg (25.7-33.7); MCHC 32.8 g/dl (32.0-35.9); MEAN CELL VOLUME 97.3 fl (80-96); MEAN PLT VOLUME 7.6 fl (7.5-11.1); MONO % 13.1 % (3.8-10.2); NEUT % 65.2 % (42.8-82.8); PLATELET COUNT 210 10^3/uL (134-434); RBC 2.78 M/mm3 (4.00-5.60); RDW 16.8 % (11.9-15.9); WHITE BLOOD COUNT 7.9 K/mm3 (4.0-10.0)
[2021-01-15] MEDS: oxyCODONE HCL 5 MG TABLET PO PRN ×2 (09:01→23:01)
[2021-01-15] MEDS: ASPIRIN 81 MG CHEWABLE TABLETS PO SCH (09:02)
[2021-01-15] MEDS: FERROUS SO4 325 MG TABLET (FP) PO SCH ×2 (09:02→22:55)
[2021-01-15] MEDS: PANTOPRAZOLE 40 MG TABLET PO SCH (09:02)
[2021-01-15 09:24] LABS: BLOOD UREA NITROGEN 36.2 mg/dL (7-18); CALCIUM 8.6 mg/dL (8.5-10.1)
[2021-01-15 09:27] LABS: CREATININE 5.6 mg/dL (0.55-1.3)
[2021-01-15] MEDS ORDERED: INSULIN (NOVOLOG) ASPART 100 UNITS/ML 10ML VIAL ONE (11:42)
[2021-01-15] MEDS: ATORVASTATIN CA 40 MG TABLET (FP) PO SCH (22:56)
[2021-01-16] MEDS: LEVOTHYROXINE NA 25 MCG TABLET (FP) PO SCH (06:30)
[2021-01-16] MEDS: GABAPENTIN 300 MG CAPSULE PO SCH ×4 (06:37→23:11)
[2021-01-16] MEDS: INSULIN SLIDING SCALE (NOVOLOG) 1 VIAL SQ SCH ×4 (06:48→23:06)
[2021-01-16] MEDS: CALCIUM ACETATE 667 MG CAPSULE (FP) PO SCH ×3 (08:30→17:13)
[2021-01-16 09:25] LABS: BASO % 0.4 % (0-2.0); EOS % 7.3 % (0-4.5); HEMATOCRIT 27.6 % (35.4-49); LYMPH % 14.3 % (8-40); MCH 31.7 pg (25.7-33.7); MCHC 32.6 g/dl (32.0-35.9); MEAN PLT VOLUME 7.6 fl (7.5-11.1); MONO % 10.3 % (3.8-10.2); NEUT % 67.7 % (42.8-82.8); PLATELET COUNT 231 10^3/uL (134-434); RBC 2.85 M/mm3 (4.00-5.60); RDW 16.6 % (11.9-15.9); WHITE BLOOD COUNT 8.2 K/mm3 (4.0-10.0)
[2021-01-16 09:47] LABS: BLOOD UREA NITROGEN 51.3 mg/dL (7-18)
[2021-01-16 09:50] LABS: ALBUMIN 2.3 g/dl (3.4-5.0)
[2021-01-16 09:51] LABS: CALCIUM 8.7 mg/dL (8.5-10.1); MAGNESIUM 1.9 mg/dL (1.8-2.4)
[2021-01-16 09:53] LABS: BILIRUBIN,TOTAL 0.3 mg/dL (0.2-1); CREATININE 7.3 mg/dL (0.55-1.3)
[2021-01-16 09:54] LABS: TOT PROT 7.2 g/dl (6.4-8.2)
[2021-01-16] MEDS: PANTOPRAZOLE 40 MG TABLET PO SCH (10:28)
[2021-01-16] MEDS: FERROUS SO4 325 MG TABLET (FP) PO SCH ×3 (10:28→23:11)
[2021-01-16] MEDS: ASPIRIN 81 MG CHEWABLE TABLETS PO SCH (10:28)
[2021-01-16] MEDS ORDERED: EPOETIN ALFA-EPBX 20,000 UNIT/ML VIAL IVPUSH ONE (11:00)
[2021-01-16] MEDS ORDERED: SODIUM CHLORIDE 250 ML IV PRN (11:00)
[2021-01-16] MEDS ORDERED: VANCOMYCIN 1 GM in D5W (PRE-DOCKED) 1,000 MG/250 ML IVPB ONE (13:00)
[2021-01-16] MEDS ORDERED: CEFEPIME HCL 1 GM VIAL (RESTRICTED TO ID) ONE (16:08)
[2021-01-16] MEDS ORDERED: DEXTROSE 5%-WATER 100 ML IVPB ONE (16:09)
[2021-01-16] MEDS: CEFEPIME 1 GM in DEXTROSE 5%-WATER 1 GM/100 ML BAG IVPB SCH (17:39)
[2021-01-16] MEDS: ATORVASTATIN CA 40 MG TABLET (FP) PO SCH ×2 (23:07→23:14)
[2021-01-16] MEDS: oxyCODONE HCL 5 MG TABLET PO PRN (23:07)
[2021-01-17] MEDS: oxyCODONE HCL 5 MG TABLET PO PRN ×3 (00:20→21:25)
[2021-01-17] MEDS: GABAPENTIN 300 MG CAPSULE PO SCH ×5 (00:20→21:25)
[2021-01-17] MEDS: FERROUS SO4 325 MG TABLET (FP) PO SCH ×3 (00:22→21:25)
[2021-01-17] MEDS: ATORVASTATIN CA 40 MG TABLET (FP) PO SCH ×2 (00:22→21:25)
[2021-01-17] MEDS: INSULIN SLIDING SCALE (NOVOLOG) 1 VIAL SQ SCH ×4 (06:28→21:27)
[2021-01-17] MEDS: LEVOTHYROXINE NA 25 MCG TABLET (FP) PO SCH (06:28)
[2021-01-17 08:47] LABS: BASO % 0.4 % (0-2.0); EOS % 7.6 % (0-4.5); HEMATOCRIT 24.9 % (35.4-49); HEMOGLOBIN 8.3 GM/dL (11.7-16.9); LYMPH % 19.6 % (8-40); MCH 32.1 pg (25.7-33.7); MCHC 33.1 g/dl (32.0-35.9); MEAN CELL VOLUME 96.9 fl (80-96); MEAN PLT VOLUME 7.4 fl (7.5-11.1); MONO % 11.7 % (3.8-10.2); NEUT % 60.7 % (42.8-82.8); PLATELET COUNT 205 10^3/uL (134-434); RBC 2.57 M/mm3 (4.00-5.60); RDW 16.1 % (11.9-15.9); WHITE BLOOD COUNT 7.1 K/mm3 (4.0-10.0)
[2021-01-17] MEDS: CALCIUM ACETATE 667 MG CAPSULE (FP) PO SCH ×3 (08:59→17:15)
[2021-01-17 09:10] LABS: BLOOD UREA NITROGEN 32.9 mg/dL (7-18)
[2021-01-17 09:11] LABS: ALBUMIN 2.3 g/dl (3.4-5.0); CALCIUM 8.6 mg/dL (8.5-10.1)
[2021-01-17 09:12] LABS: MAGNESIUM 1.7 mg/dL (1.8-2.4)
[2021-01-17 09:13] LABS: CREATININE 5.3 mg/dL (0.55-1.3)
[2021-01-17 09:15] LABS: BILIRUBIN,TOTAL 0.3 mg/dL (0.2-1); TOT PROT 6.9 g/dl (6.4-8.2)
[2021-01-17] MEDS: PANTOPRAZOLE 40 MG TABLET PO SCH (10:08)
[2021-01-17] MEDS: ASPIRIN 81 MG CHEWABLE TABLETS PO SCH (10:08)
[2021-01-17] MEDS ORDERED: ALPRAZolam 0.25 MG TABLET PO PRN (10:09)
[2021-01-17] MEDS ORDERED: CEFEPIME HCL 1 GM VIAL (RESTRICTED TO ID) ONE (17:01)
[2021-01-17] MEDS ORDERED: DEXTROSE 5%-WATER 100 ML IVPB ONE (17:02)
[2021-01-17] MEDS: CEFEPIME 1 GM in DEXTROSE 5%-WATER 1 GM/100 ML BAG IVPB SCH (17:15)
[2021-01-18] MEDS: INSULIN SLIDING SCALE (NOVOLOG) 1 VIAL SQ SCH ×4 (06:15→21:21)
[2021-01-18] MEDS: LEVOTHYROXINE NA 25 MCG TABLET (FP) PO SCH (06:15)
[2021-01-18] MEDS: GABAPENTIN 300 MG CAPSULE PO SCH ×3 (06:15→21:13)
[2021-01-18] MEDS: CALCIUM ACETATE 667 MG CAPSULE (FP) PO SCH ×3 (09:47→17:41)
[2021-01-18] MEDS: ASPIRIN 81 MG CHEWABLE TABLETS PO SCH (09:47)
[2021-01-18] MEDS: FERROUS SO4 325 MG TABLET (FP) PO SCH ×2 (09:47→21:13)
[2021-01-18] MEDS: PANTOPRAZOLE 40 MG TABLET PO SCH (09:48)
[2021-01-18] MEDS ORDERED: VANCOMYCIN 1 GRAM (PRE-DOCKED) 1,000 MG/250 ML BAG IVPB ONE (11:57)
[2021-01-18] MEDS: oxyCODONE HCL 5 MG TABLET PO PRN (14:40)
[2021-01-18] MEDS ORDERED: CEFEPIME HCL 1 GM VIAL (RESTRICTED TO ID) ONE (17:36)
[2021-01-18] MEDS ORDERED: DEXTROSE 5%-WATER 100 ML IVPB ONE (17:36)
[2021-01-18] MEDS: CEFEPIME 1 GM in DEXTROSE 5%-WATER 1 GM/100 ML BAG IVPB SCH (17:41)
[2021-01-18] MEDS: ATORVASTATIN CA 40 MG TABLET (FP) PO SCH (21:13)
[2021-01-19] MEDS: oxyCODONE HCL 5 MG TABLET PO PRN ×2 (00:33→23:39)
[2021-01-19] MEDS: GABAPENTIN 300 MG CAPSULE PO SCH ×3 (06:12→21:34)
[2021-01-19] MEDS: LEVOTHYROXINE NA 25 MCG TABLET (FP) PO SCH (06:12)
[2021-01-19] MEDS: INSULIN SLIDING SCALE (NOVOLOG) 1 VIAL SQ SCH ×4 (06:13→21:40)
[2021-01-19] MEDS: CALCIUM ACETATE 667 MG CAPSULE (FP) PO SCH ×3 (08:01→17:19)
[2021-01-19] MEDS: FERROUS SO4 325 MG TABLET (FP) PO SCH ×2 (10:05→21:34)
[2021-01-19] MEDS: ASPIRIN 81 MG CHEWABLE TABLETS PO SCH (10:05)
[2021-01-19] MEDS: PANTOPRAZOLE 40 MG TABLET PO SCH (10:05)
[2021-01-19] MEDS ORDERED: INSULIN (NOVOLOG) ASPART 100 UNITS/ML 10ML VIAL ONE (11:45)
[2021-01-19] MEDS ORDERED: SODIUM CHLORIDE 250 ML IV PRN (13:47)
[2021-01-19] MEDS ORDERED: EPOETIN ALFA-EPBX 10,000 UNIT/ML VIAL IVPUSH ONE (14:00)
[2021-01-19] MEDS ORDERED: VANCOMYCIN 1 GRAM (PRE-DOCKED) 1,000 MG/250 ML BAG IVPB ONE ×2 (15:00→17:15)
[2021-01-19] MEDS ORDERED: CEFEPIME HCL 1 GM VIAL (RESTRICTED TO ID) ONE (17:11)
[2021-01-19] MEDS ORDERED: DEXTROSE 5%-WATER 100 ML IVPB ONE (17:11)
[2021-01-19] MEDS: CEFEPIME 1 GM in DEXTROSE 5%-WATER 1 GM/100 ML BAG IVPB SCH (17:20)
[2021-01-19] MEDS ORDERED: VANCOMYCIN/WATER BAGS 1,250 MG/250 ML BAG IVPB ONE (18:00)
[2021-01-19] MEDS: ATORVASTATIN CA 40 MG TABLET (FP) PO SCH (21:34)
[2021-01-20] MEDS: GABAPENTIN 300 MG CAPSULE PO SCH ×3 (06:17→22:40)
[2021-01-20] MEDS: INSULIN SLIDING SCALE (NOVOLOG) 1 VIAL SQ SCH ×4 (06:17→22:42)
[2021-01-20] MEDS: oxyCODONE HCL 5 MG TABLET PO PRN (06:54)
[2021-01-20] MEDS: LEVOTHYROXINE NA 25 MCG TABLET (FP) PO SCH (06:55)
[2021-01-20] MEDS: PANTOPRAZOLE 40 MG TABLET PO SCH (09:40)
[2021-01-20] MEDS: ASPIRIN 81 MG CHEWABLE TABLETS PO SCH (09:40)
[2021-01-20] MEDS: FERROUS SO4 325 MG TABLET (FP) PO SCH ×2 (09:40→22:39)
[2021-01-20] MEDS: CALCIUM ACETATE 667 MG CAPSULE (FP) PO SCH ×3 (09:41→18:01)
[2021-01-20 10:32] LABS: BASO % 0.5 % (0-2.0); EOS % 7.3 % (0-4.5); HEMATOCRIT 28.2 % (35.4-49); HEMOGLOBIN 9.3 GM/dL (11.7-16.9); LYMPH % 21.3 % (8-40); MCH 32.1 pg (25.7-33.7); MCHC 33.1 g/dl (32.0-35.9); MEAN CELL VOLUME 97.2 fl (80-96); MEAN PLT VOLUME 7.6 fl (7.5-11.1); MONO % 9.4 % (3.8-10.2); NEUT % 61.5 % (42.8-82.8); PLATELET COUNT 225 10^3/uL (134-434); RDW 16.7 % (11.9-15.9); WHITE BLOOD COUNT 6.1 K/mm3 (4.0-10.0)
[2021-01-20 10:39] LABS: INR 1.31 (0.83-1.09)
[2021-01-20 10:42] LABS: ACTIVATED PTT 36.8 SECONDS (25.2-36.5)
[2021-01-20 10:51] LABS: CALCIUM 8.8 mg/dL (8.5-10.1)
[2021-01-20 10:52] LABS: BLOOD UREA NITROGEN 36.8 mg/dL (7-18)
[2021-01-20 10:55] LABS: CREATININE 5.7 mg/dL (0.55-1.3)
[2021-01-20] MEDS ORDERED: DEXTROSE 5%-WATER 100 ML IVPB ONE (16:15)
[2021-01-20] MEDS ORDERED: CEFEPIME HCL 1 GM VIAL (RESTRICTED TO ID) ONE (16:15)
[2021-01-20] MEDS: CEFEPIME 1 GM in DEXTROSE 5%-WATER 1 GM/100 ML BAG IVPB SCH (16:23)
[2021-01-20] MEDS ORDERED: LIDOCAINE HCL 1%, 10 MG/ML (20ML VIAL) ONE (19:54)
[2021-01-20] MEDS ORDERED: HEPARIN NA (PORCINE) 5,000 UNITS/ML 1ML VIAL ONE (19:54)
[2021-01-20] MEDS ORDERED: PROPOFOL 20 ML ONE (20:22)
[2021-01-20] MEDS ORDERED: MIDAZOLAM HCL 2 MG/2 ML SINGLE DOSE VIAL ONE (20:27)
[2021-01-20] MEDS ORDERED: LIDOCAINE HCL 1%, 10 MG/ML (20ML VIAL) INF ONE (20:37)
[2021-01-20] MEDS ORDERED: ONDANSETRON 4 MG/2 ML VIAL IVPUSH PRN (21:23)
[2021-01-20] MEDS ORDERED: ACETAMINOPHEN 325 MG TABLET (FP) PO PRN (21:43)
[2021-01-20] MEDS ORDERED: TIZANIDINE HCL 2 MG TABLET PO PRN (21:43)
[2021-01-20] MEDS ORDERED: VANCOMYCIN 1 GRAM (PRE-DOCKED) 1,000 MG/250 ML BAG IVPB ONE (21:43)
[2021-01-20] MEDS ORDERED: oxyCODONE HCL 5 MG TABLET PO PRN (21:43)
[2021-01-20] MEDS ORDERED: DOCUSATE SODIUM 100 MG CAPSULE (FP) PO PRN (21:43)
[2021-01-20] MEDS ORDERED: SENNOSIDES 8.6MG TABLET (FP) PO PRN (21:43)
[2021-01-20] MEDS ORDERED: ATORVASTATIN CA 40 MG TABLET (FP) PO SCH (22:00)
[2021-01-21] MEDS: GABAPENTIN 300 MG CAPSULE PO SCH ×4 (06:52→21:02)
[2021-01-21] MEDS: INSULIN SLIDING SCALE (NOVOLOG) 1 VIAL SQ SCH ×4 (06:52→21:02)
[2021-01-21] MEDS ORDERED: LEVOTHYROXINE NA 25 MCG TABLET (FP) PO SCH (07:00)
[2021-01-21] MEDS: CALCIUM ACETATE 667 MG CAPSULE (FP) PO SCH ×3 (08:34→17:40)
[2021-01-21] MEDS ORDERED: PANTOPRAZOLE 40 MG TABLET PO SCH (10:00)
[2021-01-21] MEDS: FERROUS SO4 325 MG TABLET (FP) PO SCH ×2 (10:00→21:02)
[2021-01-21] MEDS ORDERED: ASPIRIN 81 MG CHEWABLE TABLETS PO SCH (10:00)
[2021-01-21 10:37] LABS: HEMATOCRIT 25.2 % (35.4-49); HEMOGLOBIN 8.2 GM/dL (11.7-16.9); MCH 31.5 pg (25.7-33.7); MCHC 32.5 g/dl (32.0-35.9); MEAN CELL VOLUME 96.9 fl (80-96); MEAN PLT VOLUME 7.6 fl (7.5-11.1); PLATELET COUNT 204 10^3/uL (134-434); RDW 16.7 % (11.9-15.9); WHITE BLOOD COUNT 6.5 K/mm3 (4.0-10.0)
[2021-01-21 10:57] LABS: CALCIUM 8.4 mg/dL (8.5-10.1)
[2021-01-21 10:58] LABS: BLOOD UREA NITROGEN 45.1 mg/dL (7-18)
[2021-01-21] MEDS ORDERED: EPOETIN ALFA-EPBX 10,000 UNIT/ML VIAL IVPUSH ONE (12:00)
[2021-01-21] MEDS ORDERED: LIDOCAINE 1%/EPI 1:100000 (50 ML MULTI DOSE VIAL) ONE (14:24)
[2021-01-21] MEDS ORDERED: MIDAZOLAM HCL 2 MG/2 ML SINGLE DOSE VIAL ONE (14:26)
[2021-01-21] MEDS ORDERED: LIDOCAINE HCL 1%, 10 MG/ML (20ML VIAL) ONE (14:30)
[2021-01-21] MEDS ORDERED: EPINEPHrine/PF 1 MG/1 ML (1:1,000) AMPULE ONE (14:30)
[2021-01-21] MEDS ORDERED: CEFEPIME 1 GM in DEXTROSE 5%-WATER 1 GM/100 ML BAG IVPB SCH (15:00)
[2021-01-21] MEDS ORDERED: MINERAL OIL 25 ML OIL TP ONE (15:25)
[2021-01-21] MEDS ORDERED: ONDANSETRON 4 MG/2 ML VIAL IVPUSH PRN (15:59)
[2021-01-21] MEDS ORDERED: SODIUM CHLORIDE 1,000 ML IV SCH (16:00)
[2021-01-21] MEDS ORDERED: DOCUSATE SODIUM 100 MG CAPSULE (FP) PO PRN (16:11)
[2021-01-21] MEDS ORDERED: TIZANIDINE HCL 2 MG TABLET PO PRN (16:11)
[2021-01-21] MEDS ORDERED: CEFEPIME HCL 1 GM VIAL (RESTRICTED TO ID) ONE (17:11)
[2021-01-21] MEDS ORDERED: DEXTROSE 5%-WATER 100 ML IVPB ONE (17:11)
[2021-01-21] MEDS ORDERED: PT OWN MED DRAWER 7, Y5N ONE ×2 (17:23→18:07)
[2021-01-21] MEDS: CEFEPIME 1 GM in DEXTROSE 5%-WATER 1 GM/100 ML BAG IVPB SCH (17:41)
[2021-01-21] MEDS: oxyCODONE HCL 5 MG TABLET PO PRN (20:46)
[2021-01-21] MEDS: SENNOSIDES 8.6MG TABLET (FP) PO PRN (21:02)
[2021-01-21] MEDS: ATORVASTATIN CA 40 MG TABLET (FP) PO SCH (21:02)
[2021-01-22] MEDS: GABAPENTIN 300 MG CAPSULE PO SCH (06:08)
[2021-01-22] MEDS: oxyCODONE HCL 5 MG TABLET PO PRN ×3 (06:08→21:06)
[2021-01-22] MEDS: LEVOTHYROXINE NA 25 MCG TABLET (FP) PO SCH (06:09)
[2021-01-22] MEDS: INSULIN SLIDING SCALE (NOVOLOG) 1 VIAL SQ SCH ×4 (06:11→21:07)
[2021-01-22] MEDS ORDERED: PT OWN MED DRAWER 7, Y5N ONE (07:02)
[2021-01-22] MEDS: ASPIRIN 81 MG CHEWABLE TABLETS PO SCH (09:49)
[2021-01-22] MEDS: FERROUS SO4 325 MG TABLET (FP) PO SCH ×2 (09:49→21:06)
[2021-01-22] MEDS: PANTOPRAZOLE 40 MG TABLET PO SCH (09:49)
[2021-01-22] MEDS: CALCIUM ACETATE 667 MG CAPSULE (FP) PO SCH ×3 (09:49→16:33)
[2021-01-22] MEDS ORDERED: SUCCINYLCHOLINE CHLORIDE 200 MG/10 ML SYRINGE ONE (11:10)
[2021-01-22] MEDS ORDERED: INSULIN (NOVOLOG) ASPART 100 UNITS/ML 10ML VIAL ONE ×2 (11:22→16:27)
[2021-01-22] MEDS: GABAPENTIN 400 MG CAPSULE PO SCH ×2 (14:13→21:06)
[2021-01-22] MEDS ORDERED: CEFEPIME 1 GM in DEXTROSE 5%-WATER 1 GM/100 ML BAG IVPB SCH (15:00)
[2021-01-22] MEDS ORDERED: DEXTROSE 5%-WATER 100 ML IVPB ONE (16:13)
[2021-01-22] MEDS ORDERED: CEFEPIME HCL 1 GM VIAL (RESTRICTED TO ID) ONE (16:13)
[2021-01-22] MEDS: CEFEPIME 1 GM in DEXTROSE 5%-WATER 1 GM/100 ML BAG IVPB SCH (16:22)
[2021-01-22] MEDS ORDERED: EPOETIN ALFA-EPBX 10,000 UNIT/ML VIAL SQ ONE (19:14)
[2021-01-22] MEDS: ATORVASTATIN CA 40 MG TABLET (FP) PO SCH (21:07)
[2021-01-23] MEDS: oxyCODONE HCL 5 MG TABLET PO PRN ×2 (06:18→17:28)
[2021-01-23] MEDS: LEVOTHYROXINE NA 25 MCG TABLET (FP) PO SCH (06:19)
[2021-01-23] MEDS: GABAPENTIN 400 MG CAPSULE PO SCH ×3 (06:19→21:10)
[2021-01-23] MEDS: INSULIN SLIDING SCALE (NOVOLOG) 1 VIAL SQ SCH ×4 (06:19→21:10)
[2021-01-23 09:03] LABS: HEMATOCRIT 25.3 % (35.4-49); HEMOGLOBIN 8.5 GM/dL (11.7-16.9); MCH 32.6 pg (25.7-33.7); MCHC 33.5 g/dl (32.0-35.9); MEAN CELL VOLUME 97.2 fl (80-96); MEAN PLT VOLUME 7.9 fl (7.5-11.1); PLATELET COUNT 217 10^3/uL (134-434); RBC 2.61 M/mm3 (4.00-5.60); RDW 16.8 % (11.9-15.9); WHITE BLOOD COUNT 7.4 K/mm3 (4.0-10.0)
[2021-01-23 09:30] LABS: BLOOD UREA NITROGEN 33.7 mg/dL (7-18); CALCIUM 7.8 mg/dL (8.5-10.1)
[2021-01-23 09:31] LABS: ALBUMIN 2.3 g/dl (3.4-5.0)
[2021-01-23] MEDS ORDERED: SODIUM CHLORIDE 250 ML IV PRN (09:31)
[2021-01-23 09:34] LABS: CREATININE 5.7 mg/dL (0.55-1.3)
[2021-01-23 09:35] LABS: BILIRUBIN,TOTAL 0.3 mg/dL (0.2-1); TOT PROT 6.7 g/dl (6.4-8.2)
[2021-01-23] MEDS ORDERED: EPOETIN ALFA-EPBX 10,000 UNIT/ML VIAL IVPUSH ONE (09:45)
[2021-01-23] MEDS: CALCIUM ACETATE 667 MG CAPSULE (FP) PO SCH ×3 (09:45→17:18)
[2021-01-23] MEDS: ASPIRIN 81 MG CHEWABLE TABLETS PO SCH (10:50)
[2021-01-23] MEDS: PANTOPRAZOLE 40 MG TABLET PO SCH ×2 (10:50→17:19)
[2021-01-23] MEDS: FERROUS SO4 325 MG TABLET (FP) PO SCH ×2 (10:50→21:10)
[2021-01-23] MEDS ORDERED: VANCOMYCIN 1 GM in D5W (PRE-DOCKED) 1,000 MG/250 ML IVPB ONE (11:00)
[2021-01-23] MEDS ORDERED: KETAMINE HCL 200 MG/20 ML VIAL ONE (12:50)
[2021-01-23] MEDS ORDERED: CEFEPIME HCL 1 GM VIAL (RESTRICTED TO ID) ONE (17:16)
[2021-01-23] MEDS ORDERED: DEXTROSE 5%-WATER 100 ML IVPB ONE (17:16)
[2021-01-23] MEDS: CEFEPIME 1 GM in DEXTROSE 5%-WATER 1 GM/100 ML BAG IVPB SCH (17:18)
[2021-01-23] MEDS ORDERED: INSULIN (NOVOLOG) ASPART 100 UNITS/ML 10ML VIAL ONE (20:33)
[2021-01-23] MEDS: ATORVASTATIN CA 40 MG TABLET (FP) PO SCH (21:10)
[2021-01-24] MEDS: oxyCODONE HCL 5 MG TABLET PO PRN (01:18)
[2021-01-24] MEDS: GABAPENTIN 400 MG CAPSULE PO SCH ×3 (06:17→22:00)
[2021-01-24] MEDS: LEVOTHYROXINE NA 25 MCG TABLET (FP) PO SCH (06:17)
[2021-01-24] MEDS: INSULIN SLIDING SCALE (NOVOLOG) 1 VIAL SQ SCH ×4 (06:22→21:59)
[2021-01-24] MEDS ORDERED: INSULIN (NOVOLOG) ASPART 100 UNITS/ML 10ML VIAL ONE (08:18)
[2021-01-24] MEDS: CALCIUM ACETATE 667 MG CAPSULE (FP) PO SCH ×3 (08:34→17:15)
[2021-01-24] MEDS: PANTOPRAZOLE 40 MG TABLET PO SCH (09:24)
[2021-01-24] MEDS: FERROUS SO4 325 MG TABLET (FP) PO SCH ×2 (09:24→22:01)
[2021-01-24] MEDS: ASPIRIN 81 MG CHEWABLE TABLETS PO SCH (09:24)
[2021-01-24] MEDS ORDERED: DEXTROSE 5%-WATER 100 ML IVPB ONE (17:14)
[2021-01-24] MEDS ORDERED: CEFEPIME HCL 1 GM VIAL (RESTRICTED TO ID) ONE (17:14)
[2021-01-24] MEDS: CEFEPIME 1 GM in DEXTROSE 5%-WATER 1 GM/100 ML BAG IVPB SCH (17:16)
[2021-01-24] MEDS: ACETAMINOPHEN 325 MG TABLET (FP) PO PRN (22:00)
[2021-01-24] MEDS: ATORVASTATIN CA 40 MG TABLET (FP) PO SCH (22:01)
[2021-01-25] MEDS: LEVOTHYROXINE NA 25 MCG TABLET (FP) PO SCH (06:09)
[2021-01-25] MEDS: GABAPENTIN 400 MG CAPSULE PO SCH ×3 (06:09→21:52)
[2021-01-25] MEDS: INSULIN SLIDING SCALE (NOVOLOG) 1 VIAL SQ SCH ×4 (06:13→21:52)
[2021-01-25 08:21] LABS: BASO % 0.4 % (0-2.0); EOS % 6.8 % (0-4.5); HEMATOCRIT 27.4 % (35.4-49); HEMOGLOBIN 9.2 GM/dL (11.7-16.9); LYMPH % 16.9 % (8-40); MCH 32.7 pg (25.7-33.7); MCHC 33.6 g/dl (32.0-35.9); MEAN CELL VOLUME 97.3 fl (80-96); MEAN PLT VOLUME 7.9 fl (7.5-11.1); MONO % 8.6 % (3.8-10.2); NEUT % 67.3 % (42.8-82.8); PLATELET COUNT 203 10^3/uL (134-434); RBC 2.82 M/mm3 (4.00-5.60); WHITE BLOOD COUNT 6.4 K/mm3 (4.0-10.0)
[2021-01-25 08:28] LABS: CALCIUM 8.2 mg/dL (8.5-10.1)
[2021-01-25 08:30] LABS: ALBUMIN 2.4 g/dl (3.4-5.0); BLOOD UREA NITROGEN 36.3 mg/dL (7-18)
[2021-01-25 08:33] LABS: BILIRUBIN,TOTAL 0.5 mg/dL (0.2-1); CREATININE 6.9 mg/dL (0.55-1.3); TOT PROT 6.8 g/dl (6.4-8.2)
[2021-01-25] MEDS: CALCIUM ACETATE 667 MG CAPSULE (FP) PO SCH ×3 (08:58→17:57)
[2021-01-25] MEDS ORDERED: PEG 3350/NA SULF BICARB CL/KCL 4000 ML SOLN.RECON PO ONE (09:00)
[2021-01-25] MEDS: ASPIRIN 81 MG CHEWABLE TABLETS PO SCH (11:30)
[2021-01-25] MEDS: PANTOPRAZOLE 40 MG TABLET PO SCH (11:30)
[2021-01-25] MEDS: FERROUS SO4 325 MG TABLET (FP) PO SCH ×2 (11:30→21:52)
[2021-01-25] MEDS: ACETAMINOPHEN 325 MG TABLET (FP) PO PRN ×2 (11:42→21:51)
[2021-01-25] MEDS ORDERED: INSULIN (NOVOLOG) ASPART 100 UNITS/ML 10ML VIAL ONE (11:50)
[2021-01-25] MEDS ORDERED: CEFEPIME HCL 1 GM VIAL (RESTRICTED TO ID) ONE (16:06)
[2021-01-25] MEDS ORDERED: DEXTROSE 5%-WATER 100 ML IVPB ONE (16:07)
[2021-01-25] MEDS: CEFEPIME 1 GM in DEXTROSE 5%-WATER 1 GM/100 ML BAG IVPB SCH (16:17)
[2021-01-25] MEDS ORDERED: BISACODYL 5 MG TABLET.DR (FP) PO ONE (18:00)
[2021-01-25] MEDS: ATORVASTATIN CA 40 MG TABLET (FP) PO SCH (21:52)
[2021-01-26] MEDS: LEVOTHYROXINE NA 25 MCG TABLET (FP) PO SCH (06:21)
[2021-01-26] MEDS: GABAPENTIN 400 MG CAPSULE PO SCH ×3 (06:21→21:48)
[2021-01-26] MEDS: INSULIN SLIDING SCALE (NOVOLOG) 1 VIAL SQ SCH ×4 (06:21→21:48)
[2021-01-26] MEDS: CALCIUM ACETATE 667 MG CAPSULE (FP) PO SCH ×4 (07:54→17:49)
[2021-01-26] MEDS ORDERED: SODIUM CHLORIDE 250 ML IV PRN (09:16)
[2021-01-26 09:24] LABS: HEMATOCRIT 25.3 % (35.4-49); HEMOGLOBIN 8.3 GM/dL (11.7-16.9); MCH 31.8 pg (25.7-33.7); MCHC 32.7 g/dl (32.0-35.9); MEAN CELL VOLUME 97.3 fl (80-96); MEAN PLT VOLUME 8.1 fl (7.5-11.1); PLATELET COUNT 207 10^3/uL (134-434); WHITE BLOOD COUNT 7.3 K/mm3 (4.0-10.0)
[2021-01-26 09:40] LABS: CHLORIDE 101 mmol/L (98-107); SODIUM 139 mmol/L (136-145)
[2021-01-26 09:43] LABS: ANION GAP 10 MMOL/L (8-16); BLOOD UREA NITROGEN 46.6 mg/dL (7-18); CALCIUM 7.7 mg/dL (8.5-10.1); CO2 28 mmol/L (21-32); GLUCOSE,RANDOM 138 mg/dL (74-106)
[2021-01-26] MEDS: ASPIRIN 81 MG CHEWABLE TABLETS PO SCH (09:43)
[2021-01-26] MEDS: PANTOPRAZOLE 40 MG TABLET PO SCH ×2 (09:44→13:00)
[2021-01-26] MEDS: FERROUS SO4 325 MG TABLET (FP) PO SCH ×2 (09:44→21:48)
[2021-01-26 09:47] LABS: PHOSPHOROUS 6.1 mg/dL (2.5-4.9)
[2021-01-26 09:59] LABS: CREATININE 7.7 mg/dL (0.55-1.3)
[2021-01-26] MEDS ORDERED: EPOETIN ALFA-EPBX 10,000 UNIT/ML VIAL IVPUSH ONE (10:15)
[2021-01-26 16:01] VITALS: BMI 44.6
[2021-01-26] MEDS ORDERED: CEFEPIME HCL 1 GM VIAL (RESTRICTED TO ID) ONE (16:23)
[2021-01-26] MEDS ORDERED: DEXTROSE 5%-WATER 100 ML IVPB ONE (16:23)
[2021-01-26] MEDS: CEFEPIME 1 GM in DEXTROSE 5%-WATER 1 GM/100 ML BAG IVPB SCH (17:49)
[2021-01-26] MEDS ORDERED: INSULIN (NOVOLOG) ASPART 100 UNITS/ML 10ML VIAL ONE (21:40)
[2021-01-26] MEDS: ATORVASTATIN CA 40 MG TABLET (FP) PO SCH (21:48)
[2021-01-26] MEDS: SENNOSIDES 8.6MG TABLET (FP) PO PRN (21:48)
[2021-01-27] MEDS: GABAPENTIN 400 MG CAPSULE PO SCH ×3 (06:58→22:21)
[2021-01-27] MEDS: LEVOTHYROXINE NA 25 MCG TABLET (FP) PO SCH (06:58)
[2021-01-27] MEDS: INSULIN SLIDING SCALE (NOVOLOG) 1 VIAL SQ SCH ×4 (07:04→22:11)
[2021-01-27] MEDS: CALCIUM ACETATE 667 MG CAPSULE (FP) PO SCH ×3 (07:45→16:50)
[2021-01-27] MEDS ORDERED: VANCOMYCIN 1 GRAM (PRE-DOCKED) 1,000 MG/250 ML BAG IVPB ONE (07:47)
[2021-01-27 09:35] LABS: BASO % 0.4 % (0-2.0); EOS % 7.3 % (0-4.5); HEMATOCRIT 25.9 % (35.4-49); HEMOGLOBIN 8.4 GM/dL (11.7-16.9); LYMPH % 18.1 % (8-40); MCH 31.2 pg (25.7-33.7); MCHC 32.3 g/dl (32.0-35.9); MEAN CELL VOLUME 96.4 fl (80-96); MEAN PLT VOLUME 7.9 fl (7.5-11.1); MONO % 9.9 % (3.8-10.2); NEUT % 64.3 % (42.8-82.8); PLATELET COUNT 186 10^3/uL (134-434); RBC 2.69 M/mm3 (4.00-5.60); RDW 17.2 % (11.9-15.9); WHITE BLOOD COUNT 5.6 K/mm3 (4.0-10.0)
[2021-01-27] MEDS: FERROUS SO4 325 MG TABLET (FP) PO SCH ×2 (09:47→22:21)
[2021-01-27] MEDS: ASPIRIN 81 MG CHEWABLE TABLETS PO SCH (09:47)
[2021-01-27 10:05] LABS: BLOOD UREA NITROGEN 26.2 mg/dL (7-18); CALCIUM 8.3 mg/dL (8.5-10.1)
[2021-01-27 10:08] LABS: CREATININE 5.5 mg/dL (0.55-1.3)
[2021-01-27] MEDS: PANTOPRAZOLE 40 MG TABLET PO SCH (10:44)
[2021-01-27] MEDS ORDERED: KETAMINE HCL 500 MG/10 ML VIAL ONE (12:15)
[2021-01-27] MEDS ORDERED: CEFEPIME HCL 1 GM VIAL (RESTRICTED TO ID) ONE (16:28)
[2021-01-27] MEDS ORDERED: DEXTROSE 5%-WATER 100 ML IVPB ONE (16:28)
[2021-01-27] MEDS: CEFEPIME 1 GM in DEXTROSE 5%-WATER 1 GM/100 ML BAG IVPB SCH (16:36)
[2021-01-27] MEDS: oxyCODONE HCL 5 MG TABLET PO PRN (22:20)
[2021-01-27] MEDS: POLYETHYLENE GLYCOL (HEALTHYLAX) 3350 17 GM PACKET PO SCH (22:21)
[2021-01-27] MEDS: ATORVASTATIN CA 40 MG TABLET (FP) PO SCH (22:21)
[2021-01-28] MEDS: LEVOTHYROXINE NA 25 MCG TABLET (FP) PO SCH (06:01)
[2021-01-28] MEDS: GABAPENTIN 400 MG CAPSULE PO SCH ×3 (06:01→21:51)
[2021-01-28] MEDS: INSULIN SLIDING SCALE (NOVOLOG) 1 VIAL SQ SCH ×4 (06:02→22:21)
[2021-01-28] MEDS ORDERED: SODIUM CHLORIDE 250 ML IV PRN (09:26)
[2021-01-28] MEDS ORDERED: EPOETIN ALFA-EPBX 10,000 UNIT/ML VIAL SQ ONE (09:30)
[2021-01-28] MEDS: SENNOSIDES 8.6MG TABLET (FP) PO PRN (14:13)
[2021-01-28] MEDS: oxyCODONE HCL 5 MG TABLET PO PRN ×2 (14:13→20:00)
[2021-01-28] MEDS: PANTOPRAZOLE 40 MG TABLET PO SCH (14:14)
[2021-01-28] MEDS: POLYETHYLENE GLYCOL (HEALTHYLAX) 3350 17 GM PACKET PO SCH ×2 (14:14→21:51)
[2021-01-28] MEDS: CALCIUM ACETATE 667 MG CAPSULE (FP) PO SCH ×3 (14:14→17:22)
[2021-01-28] MEDS: ASPIRIN 81 MG CHEWABLE TABLETS PO SCH (14:14)
[2021-01-28] MEDS: FERROUS SO4 325 MG TABLET (FP) PO SCH ×2 (14:19→21:51)
[2021-01-28] MEDS ORDERED: CEFEPIME HCL 1 GM VIAL (RESTRICTED TO ID) ONE (17:17)
[2021-01-28] MEDS ORDERED: DEXTROSE 5%-WATER 100 ML IVPB ONE (17:17)
[2021-01-28] MEDS: CEFEPIME 1 GM in DEXTROSE 5%-WATER 1 GM/100 ML BAG IVPB SCH (17:22)
[2021-01-28] MEDS: ACETAMINOPHEN 325 MG TABLET (FP) PO PRN (20:00)
[2021-01-28] MEDS: ATORVASTATIN CA 40 MG TABLET (FP) PO SCH (21:51)
[2021-01-29] MEDS: GABAPENTIN 400 MG CAPSULE PO SCH ×2 (06:23→14:00)
[2021-01-29] MEDS: LEVOTHYROXINE NA 25 MCG TABLET (FP) PO SCH (06:23)
[2021-01-29] MEDS: INSULIN SLIDING SCALE (NOVOLOG) 1 VIAL SQ SCH ×2 (06:56→12:01)
[2021-01-29 08:10] VITALS: TEMP 98.3
[2021-01-29] MEDS: PANTOPRAZOLE 40 MG TABLET PO SCH (09:19)
[2021-01-29] MEDS: POLYETHYLENE GLYCOL (HEALTHYLAX) 3350 17 GM PACKET PO SCH (09:19)
[2021-01-29] MEDS: ASPIRIN 81 MG CHEWABLE TABLETS PO SCH (09:19)
[2021-01-29] MEDS: FERROUS SO4 325 MG TABLET (FP) PO SCH (09:19)
[2021-01-29] MEDS: CALCIUM ACETATE 667 MG CAPSULE (FP) PO SCH ×2 (09:20→12:02)
[2021-01-29 11:44] VITALS: BP 134/102; PULSE 82
[2021-01-29] MEDS: oxyCODONE HCL 5 MG TABLET PO PRN (13:59)
== END 2021-01-29 15:31 | disposition home health service (06) | DRG 711 ==
LOC: JER 13:33 → SUPCPDRO 13:33 → JERBED 20:19 → J7W 22:12 → J6S 01-13 11:26
PROVIDERS: ADMIT Internal Medicine; ATTEND Family Medicine
PROC: 5A1D70Z Performance of Urinary Filtration, Intermittent, Less than 6 Hours Per Day (ICD-10-PCS; 2021-01-14)
PROC: 5A1D70Z Performance of Urinary Filtration, Intermittent, Less than 6 Hours Per Day (ICD-10-PCS; 2021-01-16)
PROC: B40FYZZ Plain Radiography of Right Lower Extremity Arteries using Other Contrast (ICD-10-PCS; 2021-01-20)
PROC: B41DZZZ Fluoroscopy of Aorta and Bilateral Lower Extremity Arteries (ICD-10-PCS; principal; 2021-01-20 19:00)
PROC: 0HRMX74 Replacement of Right Foot Skin with Autologous Tissue Substitute, Partial Thickness, External Approach (ICD-10-PCS; 2021-01-21)
PROC: 0HBHXZZ Excision of Right Upper Leg Skin, External Approach (ICD-10-PCS; 2021-01-21)
PROC: 0JBQ0ZZ Excision of Right Foot Subcutaneous Tissue and Fascia, Open Approach (ICD-10-PCS; 2021-01-21)
PROC: 2W1SX6Z Compression of Right Foot using Pressure Dressing (ICD-10-PCS; 2021-01-21)
PROC: 5A1D70Z Performance of Urinary Filtration, Intermittent, Less than 6 Hours Per Day (ICD-10-PCS; 2021-01-21)
PROC: 0DB68ZX Excision of Stomach, Via Natural or Artificial Opening Endoscopic, Diagnostic (ICD-10-PCS; 2021-01-23)
PROC: 0DB78ZX Excision of Stomach, Pylorus, Via Natural or Artificial Opening Endoscopic, Diagnostic (ICD-10-PCS; 2021-01-23)
PROC: 5A1D70Z Performance of Urinary Filtration, Intermittent, Less than 6 Hours Per Day (ICD-10-PCS; 2021-01-23)
PROC: 5A1D70Z Performance of Urinary Filtration, Intermittent, Less than 6 Hours Per Day (ICD-10-PCS; 2021-01-26)
PROC: 0DBN8ZX Excision of Sigmoid Colon, Via Natural or Artificial Opening Endoscopic, Diagnostic (ICD-10-PCS; 2021-01-27)
PROC: 0DBP8ZX Excision of Rectum, Via Natural or Artificial Opening Endoscopic, Diagnostic (ICD-10-PCS; 2021-01-27)
PROC: 5A1D70Z Performance of Urinary Filtration, Intermittent, Less than 6 Hours Per Day (ICD-10-PCS; 2021-01-28)
DX: T81.49XA Infection following a procedure, other surgical site, initial encounter (principal); I27.20 Pulmonary hypertension, unspecified; K76.0 Fatty (change of) liver, not elsewhere classified; E11.42 Type 2 diabetes mellitus with diabetic polyneuropathy; M10.30 Gout due to renal impairment, unspecified site; E66.01 Morbid (severe) obesity due to excess calories; Z68.41 Body mass index [BMI] 40.0-44.9, adult; L97.518 Non-pressure chronic ulcer of other part of right foot with other specified severity; E11.621 Type 2 diabetes mellitus with foot ulcer; B95.62 Methicillin resistant Staphylococcus aureus infection as the cause of diseases classified elsewhere; D63.1 Anemia in chronic kidney disease; L03.115 Cellulitis of right lower limb; E03.9 Hypothyroidism, unspecified; G47.30 Sleep apnea, unspecified; M17.11 Unilateral primary osteoarthritis, right knee; F41.9 Anxiety disorder, unspecified; K62.5 Hemorrhage of anus and rectum; K64.8 Other hemorrhoids; K63.3 Ulcer of intestine; K29.40 Chronic atrophic gastritis without bleeding; D50.0 Iron deficiency anemia secondary to blood loss (chronic); D12.8 Benign neoplasm of rectum; E87.70 Fluid overload, unspecified; I12.0 Hypertensive chronic kidney disease with stage 5 chronic kidney disease or end stage renal disease; E11.22 Type 2 diabetes mellitus with diabetic chronic kidney disease; N18.6 End stage renal disease; Z99.2 Dependence on renal dialysis; B95.61 Methicillin susceptible Staphylococcus aureus infection as the cause of diseases classified elsewhere; Y83.8 Other surgical procedures as the cause of abnormal reaction of the patient, or of later complication, without mention of misadventure at the time of the procedure
CPT/HCPCS: 36415; 71045-TC-FY; 73700-TC-RT; 76000-TC-FY; 80048; 80053; 82272; 82962; 83735; 84100; 84439; 84443; 84480; 84481; 84550; 85025; 85027; 85610; 85651; 85730; 86140; 86618; 86803; 86850; 86900; 86901; 87040; 87070; 87186; 87205; 87340; 88304-TC; 88305-TC; 93005; 93010; 93970-TC; 94760; 97116-GP; 97162-GP; 99285-25; C9803; G0463-25; G0480; J1644; Q5106; U0003; U0005

== ENCOUNTER 2021-02-17 15:37 | Emergency (ER) | payer OTHER ==
[2021-02-17 16:04] VITALS: BP 142/73; PULSE 78; TEMP 98.3; BMI 41.5
== END 2021-02-17 19:03 | disposition home or self-care (01) ==
LOC: JER 15:37 → JERFT 15:37 → JER 19:03
DX: M54.5 Low back pain (principal); W01.0XXA Fall on same level from slipping, tripping and stumbling without subsequent striking against object, initial encounter
CPT/HCPCS: 71046-TC-FY; 72070-TC-FY; 72100-TC-FY; 82962; 99285-25; G0277

== ENCOUNTER 2021-03-26 04:30 | Day surgery (SDC) | payer OTHER ==
[2021-03-25 09:17] VITALS: BMI 40.0
[2021-03-26] MEDS ORDERED: LIDOCAINE HCL 1%, 10 MG/ML (20ML VIAL) ONE (10:57)
[2021-03-26] MEDS ORDERED: HEPARIN NA (PORCINE) 5,000 UNITS/ML 1ML VIAL ONE (10:57)
[2021-03-26] MEDS ORDERED: PROPOFOL 20 ML ONE ×2 (13:12→14:30)
[2021-03-26] MEDS ORDERED: MIDAZOLAM HCL 2 MG/2 ML SINGLE DOSE VIAL ONE (13:12)
[2021-03-26] MEDS ORDERED: LIDOCAINE HCL/PF 2% SDV 5ML VIAL ONE (13:38)
[2021-03-26] MEDS ORDERED: ceFAZolin SODIUM 1 GM VIAL IVPB ONE (13:45)
[2021-03-26] MEDS ORDERED: ceFAZolin SODIUM 1 GM VIAL ONE (13:49)
[2021-03-26] MEDS ORDERED: ONDANSETRON 4 MG/2 ML VIAL IVPUSH PRN (14:41)
[2021-03-26] MEDS ORDERED: SODIUM CHLORIDE 1,000 ML IV SCH (14:45)
[2021-03-26] MEDS ORDERED: POVIDONE-IODINE OINTMENT 10% - 28.4 GM TUBE ONE (15:55)
[2021-03-26] MEDS ORDERED: POVIDONE-IODINE 10% SOLN 118 ML BOTTLE TP ONE (16:32)
[2021-03-26 18:39] VITALS: BP 114/57; PULSE 94; TEMP 98.6
== END 2021-03-26 19:25 | disposition home or self-care (01) ==
LOC: JASU-SURG 04:30
PROVIDERS: ATTEND Surgery Vascular Surgery
PROC: 03170JD Bypass Right Brachial Artery to Upper Arm Vein with Synthetic Substitute, Open Approach (ICD-10-PCS; principal; 2021-03-26 12:30)
DX: I12.0 Hypertensive chronic kidney disease with stage 5 chronic kidney disease or end stage renal disease (principal); E11.22 Type 2 diabetes mellitus with diabetic chronic kidney disease; N18.6 End stage renal disease; Z99.2 Dependence on renal dialysis; Z79.4 Long term (current) use of insulin
CPT/HCPCS: 36415; 82947; 82962; 84132; 94760; J1644

== ENCOUNTER 2021-05-24 15:50 | Emergency (ER) | payer OTHER ==
[2021-05-24 16:18] VITALS: BP 161/73; PULSE 88; TEMP 97; BMI 39.3
[2021-05-24 18:44] LABS: BASO % 0.8 % (0-2.0); EOS % 3.5 % (0-4.5); HEMATOCRIT 29.6 % (35.4-49); HEMOGLOBIN 9.6 GM/dL (11.7-16.9); LYMPH % 12.9 % (8-40); MCHC 32.5 g/dl (32.0-35.9); MEAN CELL VOLUME 89.4 fl (80-96); MEAN PLT VOLUME 7.3 fl (7.5-11.1); MONO % 7.6 % (3.8-10.2); NEUT % 75.2 % (42.8-82.8); PLATELET COUNT 251 10^3/uL (134-434); RBC 3.31 M/mm3 (4.00-5.60); RDW 16.2 % (11.9-15.9); WHITE BLOOD COUNT 10.4 K/mm3 (4.0-10.0)
[2021-05-24 19:01] LABS: CALCIUM 8.8 mg/dL (8.5-10.1)
[2021-05-24 19:02] LABS: ALBUMIN 2.7 g/dl (3.4-5.0); BLOOD UREA NITROGEN 72.1 mg/dL (7-18)
[2021-05-24 19:05] LABS: CREATININE 7.2 mg/dL (0.55-1.3)
[2021-05-24 19:06] LABS: BILIRUBIN,TOTAL 0.3 mg/dL (0.2-1)
[2021-05-24 19:07] LABS: TOT PROT 8.1 g/dl (6.4-8.2)
== END 2021-05-24 21:40 | disposition home or self-care (01) ==
LOC: JER 15:50
DX: R60.0 Localized edema (principal); N18.6 End stage renal disease; D63.1 Anemia in chronic kidney disease; Z99.2 Dependence on renal dialysis
CPT/HCPCS: 36415; 80053; 85025; 93971-TC; 99284-25

== ENCOUNTER 2021-05-26 12:46 | Inpatient (IN) | payer OTHER ==
[2021-05-26] MEDS ORDERED: CEFTRIAXONE 1,000 MG in DEXTROSE 5%-WATER - 50 ML IVPB ONE (13:59)
[2021-05-26] MEDS ORDERED: VANCOMYCIN 1 GM in D5W (PRE-DOCKED) 1,000 MG/250 ML IVPB ONE (13:59)
[2021-05-26] MEDS ORDERED: CEFTRIAXONE 1 GM/50 ML BAG ONE (14:24)
[2021-05-26 15:42] LABS: BASO % 0.5 % (0-2.0); EOS % 4.1 % (0-4.5); HEMATOCRIT 31.3 % (35.4-49); HEMOGLOBIN 10.1 GM/dL (11.7-16.9); LYMPH % 14.7 % (8-40); MCHC 32.4 g/dl (32.0-35.9); MEAN CELL VOLUME 89.5 fl (80-96); MEAN PLT VOLUME 7.9 fl (7.5-11.1); MONO % 7.3 % (3.8-10.2); NEUT % 73.4 % (42.8-82.8); PLATELET COUNT 267 10^3/uL (134-434); RBC 3.49 M/mm3 (4.00-5.60); RDW 16.7 % (11.9-15.9); WHITE BLOOD COUNT 9.3 K/mm3 (4.0-10.0)
[2021-05-26 15:49] LABS: INR 1.31 (0.83-1.09); PROTHROMBIN TIME (PATIENT) 14.7 SEC (9.7-13.0)
[2021-05-26 15:52] LABS: ACTIVATED PTT 38.7 SECONDS (25.2-36.5)
[2021-05-26 16:05] LABS: BLOOD UREA NITROGEN 57.8 mg/dL (7-18); CALCIUM 9.3 mg/dL (8.5-10.1)
[2021-05-26 16:06] LABS: ALBUMIN 2.6 g/dl (3.4-5.0)
[2021-05-26 16:09] LABS: CREATININE 6.3 mg/dL (0.55-1.3)
[2021-05-26 16:10] LABS: BILIRUBIN,TOTAL 0.3 mg/dL (0.2-1)
[2021-05-26 16:12] LABS: TOT PROT 8.3 g/dl (6.4-8.2)
[2021-05-26] MEDS ORDERED: VANCOMYCIN 500 MG in DEXTROSE 5%-WATER - 100 ML IVPB ONE (16:58)
[2021-05-26] MEDS ORDERED: PIPERACILLIN/TAZOB 3.375 GM 3.375 GM in DEXTROSE 5%-WATER - 50 ML IVPB ONE (16:59)
[2021-05-26] MEDS ORDERED: PIPERACILLIN/TAZOB 3.375 GM 3.375 GM/50 ML BAG IVPB ONE (17:59)
[2021-05-26] MEDS ORDERED: ENOXAPARIN NA (PORCINE) 40 MG/0.4 ML DISP.SYRIN SQ ONE (19:53)
[2021-05-26] MEDS: GABAPENTIN 300 MG CAPSULE PO SCH (20:14)
[2021-05-26] MEDS: ENOXAPARIN NA (PORCINE) 40 MG/0.4 ML DISP.SYRIN SQ SCH (20:14)
[2021-05-26] MEDS ORDERED: oxyCODONE HCL 5 MG TABLET ONE (23:20)
[2021-05-26] MEDS ORDERED: ACETAMINOPHEN 325 MG TABLET (FP) ONE (23:20)
[2021-05-26] MEDS ORDERED: ATORVASTATIN CA 40 MG TABLET (FP) ONE (23:20)
[2021-05-26] MEDS: ATORVASTATIN CA 40 MG TABLET (FP) PO SCH (23:28)
[2021-05-26] MEDS: ACETAMINOPHEN 325 MG TABLET (FP) PO SCH (23:28)
[2021-05-26] MEDS: oxyCODONE HCL 5 MG TABLET PO SCH (23:28)
[2021-05-27] MEDS ORDERED: PIPERACILLIN/TAZOB 3.375 GM 3.375 GM/50 ML BAG IVPB ONE ×2 (02:37→10:44)
[2021-05-27] MEDS: PIPERACILLIN/TAZOB 3.375 GM 3.375 GM in DEXTROSE 5%-WATER - 50 ML IVPB SCH ×2 (03:12→10:55)
[2021-05-27] MEDS: GABAPENTIN 300 MG CAPSULE PO SCH ×4 (03:46→21:37)
[2021-05-27] MEDS ORDERED: ACETAMINOPHEN 325 MG TABLET (FP) ONE (05:25)
[2021-05-27] MEDS ORDERED: oxyCODONE HCL 5 MG TABLET ONE (05:26)
[2021-05-27] MEDS ORDERED: LEVOTHYROXINE NA 25 MCG TABLET (FP) ONE (05:26)
[2021-05-27] MEDS: oxyCODONE HCL 5 MG TABLET PO SCH ×3 (06:33→21:37)
[2021-05-27] MEDS: LEVOTHYROXINE NA 25 MCG TABLET (FP) PO SCH (06:34)
[2021-05-27] MEDS: ACETAMINOPHEN 325 MG TABLET (FP) PO SCH ×3 (06:34→21:37)
[2021-05-27 08:17] LABS: BASO % 0.6 % (0-2.0); EOS % 4.6 % (0-4.5); HEMATOCRIT 28.3 % (35.4-49); HEMOGLOBIN 9.3 GM/dL (11.7-16.9); LYMPH % 18.8 % (8-40); MCH 29.6 pg (25.7-33.7); MCHC 32.7 g/dl (32.0-35.9); MEAN CELL VOLUME 90.6 fl (80-96); MEAN PLT VOLUME 8.1 fl (7.5-11.1); MONO % 8.1 % (3.8-10.2); NEUT % 67.9 % (42.8-82.8); PLATELET COUNT 249 10^3/uL (134-434); RBC 3.13 M/mm3 (4.00-5.60); RDW 16.6 % (11.9-15.9); WHITE BLOOD COUNT 7.8 K/mm3 (4.0-10.0)
[2021-05-27 08:22] LABS: INR 1.2 (0.83-1.09); PROTHROMBIN TIME (PATIENT) 14.1 SEC (9.7-13.0)
[2021-05-27 08:55] LABS: CHLORIDE 103 mmol/L (98-107); SODIUM 140 mmol/L (136-145)
[2021-05-27 09:05] LABS: CALCIUM 8.6 mg/dL (8.5-10.1)
[2021-05-27 09:06] LABS: ALBUMIN 2.3 g/dl (3.4-5.0); ANION GAP 17 MMOL/L (8-16); BLOOD UREA NITROGEN 67.6 mg/dL (7-18); CO2 20 mmol/L (21-32); GLUCOSE,RANDOM 124 mg/dL (74-106); MAGNESIUM 2.3 mg/dL (1.8-2.4)
[2021-05-27 09:09] LABS: CREATININE 7.2 mg/dL (0.55-1.3); SGOT/AST 11 U/L (15-37); SGPT/ALT 28 U/L (13-61)
[2021-05-27 09:10] LABS: BILIRUBIN,TOTAL 0.3 mg/dL (0.2-1); TOT PROT 7.4 g/dl (6.4-8.2)
[2021-05-27 09:12] LABS: ALK PHOS 109 U/L (45-117)
[2021-05-27 09:25] LABS: PHOSPHOROUS 10.7 mg/dL (2.5-4.9)
[2021-05-27] MEDS ORDERED: GABAPENTIN 100 MG CAPSULE ONE (10:43)
[2021-05-27] MEDS ORDERED: ENOXAPARIN NA (PORCINE) 40 MG/0.4 ML DISP.SYRIN SQ ONE (10:43)
[2021-05-27] MEDS: ENOXAPARIN NA (PORCINE) 40 MG/0.4 ML DISP.SYRIN SQ SCH (10:55)
[2021-05-27] MEDS: CALCIUM ACETATE 667 MG CAPSULE (FP) PO SCH ×3 (11:13→19:13)
[2021-05-27] MEDS ORDERED: SODIUM CHLORIDE 250 ML IV PRN (15:39)
[2021-05-27] MEDS ORDERED: EPOETIN ALFA-EPBX 10,000 UNIT/ML VIAL SQ ONE (15:39)
[2021-05-27] MEDS ORDERED: DEXTROSE 5%-WATER - 50 ML IVPB ONE (19:33)
[2021-05-27] MEDS ORDERED: PIPERACILLIN/TAZOBACTAM 2.25 GM VIAL IVPB ONE (19:33)
[2021-05-27] MEDS: PIPERACILLIN/TAZOB 2.25 GM 2.25 GM in DEXTROSE 5%-WATER - 50 ML IVPB SCH (19:40)
[2021-05-27] MEDS: ATORVASTATIN CA 40 MG TABLET (FP) PO SCH (21:37)
[2021-05-27] MEDS: TIZANIDINE HCL 2 MG TABLET PO PRN (21:37)
[2021-05-27] MEDS ORDERED: PT OWN MED DRAWER 7, Y5N ONE (21:59)
[2021-05-28] MEDS ORDERED: PIPERACILLIN/TAZOBACTAM 2.25 GM VIAL IVPB ONE ×3 (00:54→18:31)
[2021-05-28] MEDS ORDERED: DEXTROSE 5%-WATER - 50 ML IVPB ONE ×3 (00:54→18:31)
[2021-05-28] MEDS: PIPERACILLIN/TAZOB 2.25 GM 2.25 GM in DEXTROSE 5%-WATER - 50 ML IVPB SCH ×3 (01:11→18:40)
[2021-05-28] MEDS ORDERED: PIPERACILLIN/TAZOB 3.375 GM 3.375 GM in DEXTROSE 5%-WATER - 50 ML IVPB SCH (02:00)
[2021-05-28] MEDS: ACETAMINOPHEN 325 MG TABLET (FP) PO SCH ×3 (05:22→21:53)
[2021-05-28] MEDS: GABAPENTIN 300 MG CAPSULE PO SCH ×3 (05:22→21:51)
[2021-05-28] MEDS: oxyCODONE HCL 5 MG TABLET PO SCH ×3 (05:22→21:51)
[2021-05-28] MEDS: LEVOTHYROXINE NA 25 MCG TABLET (FP) PO SCH (06:05)
[2021-05-28] MEDS: CALCIUM ACETATE 667 MG CAPSULE (FP) PO SCH ×3 (08:38→18:40)
[2021-05-28] MEDS ORDERED: PT OWN MED DRAWER 7, Y5N ONE (09:29)
[2021-05-28] MEDS: ENOXAPARIN NA (PORCINE) 40 MG/0.4 ML DISP.SYRIN SQ SCH (09:34)
[2021-05-28] MEDS ORDERED: VANCOMYCIN 1 GRAM (PRE-DOCKED) 1,000 MG/250 ML BAG IVPB ONE (15:33)
[2021-05-28] MEDS ORDERED: SODIUM CHLORIDE 250 ML IV PRN (18:23)
[2021-05-28] MEDS: ATORVASTATIN CA 40 MG TABLET (FP) PO SCH (21:51)
[2021-05-29] MEDS ORDERED: DEXTROSE 5%-WATER - 50 ML IVPB ONE ×2 (01:39→16:43)
[2021-05-29] MEDS ORDERED: PIPERACILLIN/TAZOBACTAM 2.25 GM VIAL IVPB ONE ×2 (01:39→16:42)
[2021-05-29] MEDS: PIPERACILLIN/TAZOB 2.25 GM 2.25 GM in DEXTROSE 5%-WATER - 50 ML IVPB SCH ×3 (02:00→17:18)
[2021-05-29] MEDS: LEVOTHYROXINE NA 25 MCG TABLET (FP) PO SCH (06:07)
[2021-05-29] MEDS: GABAPENTIN 300 MG CAPSULE PO SCH ×3 (06:07→21:08)
[2021-05-29] MEDS: ACETAMINOPHEN 325 MG TABLET (FP) PO SCH ×3 (06:08→21:09)
[2021-05-29] MEDS: oxyCODONE HCL 5 MG TABLET PO SCH ×3 (06:09→21:08)
[2021-05-29] MEDS ORDERED: EPOETIN ALFA-EPBX 10,000 UNIT/ML VIAL IVPUSH ONE (11:00)
[2021-05-29] MEDS ORDERED: VANCOMYCIN PREMIX 1.5 GM 1,500 MG/300 ML BAG IVPB ONE (14:00)
[2021-05-29] MEDS: CALCIUM ACETATE 667 MG CAPSULE (FP) PO SCH ×3 (14:34→16:48)
[2021-05-29] MEDS: ENOXAPARIN NA (PORCINE) 40 MG/0.4 ML DISP.SYRIN SQ SCH (14:36)
[2021-05-29] MEDS: TIZANIDINE HCL 2 MG TABLET PO PRN (21:08)
[2021-05-29] MEDS: ATORVASTATIN CA 40 MG TABLET (FP) PO SCH (21:08)
[2021-05-30] MEDS ORDERED: PIPERACILLIN/TAZOBACTAM 2.25 GM VIAL IVPB ONE ×3 (02:38→17:25)
[2021-05-30] MEDS ORDERED: DEXTROSE 5%-WATER - 50 ML IVPB ONE ×3 (02:38→17:25)
[2021-05-30] MEDS: PIPERACILLIN/TAZOB 2.25 GM 2.25 GM in DEXTROSE 5%-WATER - 50 ML IVPB SCH ×3 (02:54→18:32)
[2021-05-30] MEDS: GABAPENTIN 300 MG CAPSULE PO SCH ×3 (06:16→21:13)
[2021-05-30] MEDS: ACETAMINOPHEN 325 MG TABLET (FP) PO SCH ×3 (06:16→21:13)
[2021-05-30] MEDS: LEVOTHYROXINE NA 25 MCG TABLET (FP) PO SCH (06:16)
[2021-05-30] MEDS: oxyCODONE HCL 5 MG TABLET PO SCH ×3 (06:16→21:12)
[2021-05-30] MEDS: CALCIUM ACETATE 667 MG CAPSULE (FP) PO SCH ×3 (08:51→17:34)
[2021-05-30] MEDS ORDERED: PT OWN MED DRAWER 7, Y5N ONE (09:58)
[2021-05-30] MEDS: ENOXAPARIN NA (PORCINE) 40 MG/0.4 ML DISP.SYRIN SQ SCH (10:11)
[2021-05-30] MEDS ORDERED: INSULIN (NOVOLOG) ASPART 100 UNITS/ML 10ML VIAL ONE (19:23)
[2021-05-30] MEDS: ATORVASTATIN CA 40 MG TABLET (FP) PO SCH (21:13)
[2021-05-31] MEDS ORDERED: DEXTROSE 5%-WATER - 50 ML IVPB ONE ×3 (00:58→17:22)
[2021-05-31] MEDS ORDERED: PIPERACILLIN/TAZOBACTAM 2.25 GM VIAL IVPB ONE ×3 (00:58→17:22)
[2021-05-31] MEDS: PIPERACILLIN/TAZOB 2.25 GM 2.25 GM in DEXTROSE 5%-WATER - 50 ML IVPB SCH ×3 (01:53→17:25)
[2021-05-31] MEDS: GABAPENTIN 300 MG CAPSULE PO SCH ×3 (05:26→21:38)
[2021-05-31] MEDS: oxyCODONE HCL 5 MG TABLET PO SCH ×3 (05:26→21:38)
[2021-05-31] MEDS: ACETAMINOPHEN 325 MG TABLET (FP) PO SCH ×3 (05:27→21:41)
[2021-05-31] MEDS: LEVOTHYROXINE NA 25 MCG TABLET (FP) PO SCH (06:25)
[2021-05-31] MEDS: CALCIUM ACETATE 667 MG CAPSULE (FP) PO SCH ×3 (08:43→17:58)
[2021-05-31] MEDS: ENOXAPARIN NA (PORCINE) 40 MG/0.4 ML DISP.SYRIN SQ SCH (10:11)
[2021-05-31 10:27] LABS: BASO % 0.7 % (0-2.0); EOS % 5.3 % (0-4.5); HEMATOCRIT 25.3 % (35.4-49); HEMOGLOBIN 8.3 GM/dL (11.7-16.9); LYMPH % 14.6 % (8-40); MCH 29.9 pg (25.7-33.7); MCHC 32.9 g/dl (32.0-35.9); MEAN CELL VOLUME 90.7 fl (80-96); MONO % 9.8 % (3.8-10.2); NEUT % 69.6 % (42.8-82.8); PLATELET COUNT 242 10^3/uL (134-434); RBC 2.79 M/mm3 (4.00-5.60); RDW 16.5 % (11.9-15.9); WHITE BLOOD COUNT 9.9 K/mm3 (4.0-10.0)
[2021-05-31 10:51] LABS: CHLORIDE 99 mmol/L (98-107); SODIUM 137 mmol/L (136-145)
[2021-05-31 10:53] LABS: ALBUMIN 2.4 g/dl (3.4-5.0); ANION GAP 15 MMOL/L (8-16); BLOOD UREA NITROGEN 43.4 mg/dL (7-18); CO2 23 mmol/L (21-32)
[2021-05-31 10:54] LABS: GLUCOSE,RANDOM 154 mg/dL (74-106)
[2021-05-31 10:56] LABS: SGOT/AST 10 U/L (15-37); SGPT/ALT 19 U/L (13-61)
[2021-05-31 10:58] LABS: ALK PHOS 102 U/L (45-117); BILIRUBIN,TOTAL 0.4 mg/dL (0.2-1); TOT PROT 7.9 g/dl (6.4-8.2)
[2021-05-31 11:03] LABS: CREATININE 7.6 mg/dL (0.55-1.3)
[2021-05-31] MEDS ORDERED: SODIUM CHLORIDE 250 ML IV PRN (15:09)
[2021-05-31] MEDS: INSULIN SLIDING SCALE (NOVOLOG) 1 VIAL SQ SCH ×2 (17:06→21:41)
[2021-05-31] MEDS: ATORVASTATIN CA 40 MG TABLET (FP) PO SCH (21:38)
[2021-06-01] MEDS ORDERED: PIPERACILLIN/TAZOBACTAM 2.25 GM VIAL IVPB ONE ×3 (00:28→17:10)
[2021-06-01] MEDS ORDERED: DEXTROSE 5%-WATER - 50 ML IVPB ONE ×3 (00:28→17:10)
[2021-06-01] MEDS: PIPERACILLIN/TAZOB 2.25 GM 2.25 GM in DEXTROSE 5%-WATER - 50 ML IVPB SCH ×3 (01:12→17:35)
[2021-06-01] MEDS: LEVOTHYROXINE NA 25 MCG TABLET (FP) PO SCH (06:27)
[2021-06-01] MEDS: ACETAMINOPHEN 325 MG TABLET (FP) PO SCH ×3 (06:27→22:11)
[2021-06-01] MEDS: GABAPENTIN 300 MG CAPSULE PO SCH ×3 (06:27→22:11)
[2021-06-01] MEDS: oxyCODONE HCL 5 MG TABLET PO SCH ×3 (06:28→22:11)
[2021-06-01] MEDS: INSULIN SLIDING SCALE (NOVOLOG) 1 VIAL SQ SCH ×4 (06:29→22:58)
[2021-06-01] MEDS: ENOXAPARIN NA (PORCINE) 40 MG/0.4 ML DISP.SYRIN SQ SCH (10:13)
[2021-06-01] MEDS: CALCIUM ACETATE 667 MG CAPSULE (FP) PO SCH ×3 (10:14→17:40)
[2021-06-01] MEDS ORDERED: EPOETIN ALFA-EPBX 10,000 UNIT/ML VIAL IVPUSH ONE (11:00)
[2021-06-01] MEDS ORDERED: INSULIN (NOVOLOG) ASPART 100 UNITS/ML 10ML VIAL ONE (11:08)
[2021-06-01 11:40] LABS: BASO % 0.3 % (0-2.0); EOS % 4.9 % (0-4.5); HEMOGLOBIN 7.3 GM/dL (11.7-16.9); LYMPH % 13.6 % (8-40); MCH 29.7 pg (25.7-33.7); MCHC 31.7 g/dl (32.0-35.9); MEAN CELL VOLUME 93.6 fl (80-96); MEAN PLT VOLUME 8.4 fl (7.5-11.1); MONO % 8.9 % (3.8-10.2); NEUT % 72.3 % (42.8-82.8); PLATELET COUNT 213 10^3/uL (134-434); RBC 2.46 M/mm3 (4.00-5.60); RDW 16.7 % (11.9-15.9); WHITE BLOOD COUNT 8.7 K/mm3 (4.0-10.0)
[2021-06-01 12:00] LABS: CHLORIDE 86 mmol/L (98-107); SODIUM 129 mmol/L (136-145)
[2021-06-01 12:03] LABS: ALBUMIN 1.9 g/dl (3.4-5.0); ANION GAP 24 MMOL/L (8-16); BLOOD UREA NITROGEN 47.3 mg/dL (7-18); CO2 20 mmol/L (21-32)
[2021-06-01 12:07] LABS: SGOT/AST 7 U/L (15-37); SGPT/ALT 14 U/L (13-61)
[2021-06-01 12:08] LABS: BILIRUBIN,TOTAL 0.3 mg/dL (0.2-1); TOT PROT 7.4 g/dl (6.4-8.2)
[2021-06-01 12:08] LABS: HEMATOCRIT 24.5 % (35.4-49); HEMOGLOBIN 7.9 GM/dL (11.7-16.9); MCH 29.5 pg (25.7-33.7); MCHC 32.3 g/dl (32.0-35.9); MEAN CELL VOLUME 91.4 fl (80-96); MEAN PLT VOLUME 7.7 fl (7.5-11.1); PLATELET COUNT 238 10^3/uL (134-434); RBC 2.68 M/mm3 (4.00-5.60); RDW 16.7 % (11.9-15.9); WHITE BLOOD COUNT 9.7 K/mm3 (4.0-10.0)
[2021-06-01 12:09] LABS: ALK PHOS 82 U/L (45-117)
[2021-06-01 12:17] LABS: GLUCOSE,RANDOM 582 mg/dL (74-106)
[2021-06-01 12:24] LABS: CHLORIDE 98 mmol/L (98-107); SODIUM 137 mmol/L (136-145)
[2021-06-01 12:29] LABS: ANION GAP 15 MMOL/L (8-16); BLOOD UREA NITROGEN 53.9 mg/dL (7-18); CALCIUM 8.9 mg/dL (8.5-10.1); CO2 23 mmol/L (21-32); GLUCOSE,RANDOM 188 mg/dL (74-106)
[2021-06-01 12:36] LABS: CREATININE 9.2 mg/dL (0.55-1.3)
[2021-06-01 12:46] LABS: CALCIUM 7.5 mg/dL (8.5-10.1); CREATININE 7.8 mg/dL (0.55-1.3)
[2021-06-01] MEDS ORDERED: VANCOMYCIN/WATER BAGS 1,250 MG/250 ML BAG IVPB ONE (16:49)
[2021-06-01] MEDS: ATORVASTATIN CA 40 MG TABLET (FP) PO SCH (22:11)
[2021-06-01] MEDS: TIZANIDINE HCL 2 MG TABLET PO PRN (22:11)
[2021-06-02] MEDS ORDERED: DEXTROSE 5%-WATER - 50 ML IVPB ONE ×3 (02:27→17:20)
[2021-06-02] MEDS ORDERED: PIPERACILLIN/TAZOBACTAM 2.25 GM VIAL IVPB ONE ×3 (02:27→17:20)
[2021-06-02] MEDS: PIPERACILLIN/TAZOB 2.25 GM 2.25 GM in DEXTROSE 5%-WATER - 50 ML IVPB SCH ×3 (02:36→17:48)
[2021-06-02] MEDS: GABAPENTIN 300 MG CAPSULE PO SCH ×3 (06:35→21:38)
[2021-06-02] MEDS: ACETAMINOPHEN 325 MG TABLET (FP) PO SCH ×3 (06:36→21:36)
[2021-06-02] MEDS: oxyCODONE HCL 5 MG TABLET PO SCH ×2 (06:36→13:09)
[2021-06-02] MEDS: TIZANIDINE HCL 2 MG TABLET PO PRN ×2 (06:38→13:12)
[2021-06-02] MEDS: LEVOTHYROXINE NA 25 MCG TABLET (FP) PO SCH (06:38)
[2021-06-02] MEDS: INSULIN SLIDING SCALE (NOVOLOG) 1 VIAL SQ SCH ×4 (06:48→22:31)
[2021-06-02] MEDS: CALCIUM ACETATE 667 MG CAPSULE (FP) PO SCH ×3 (08:53→17:47)
[2021-06-02] MEDS: ENOXAPARIN NA (PORCINE) 40 MG/0.4 ML DISP.SYRIN SQ SCH (10:27)
[2021-06-02] MEDS ORDERED: SODIUM CHLORIDE 250 ML IV PRN (17:05)
[2021-06-02] MEDS: ATORVASTATIN CA 40 MG TABLET (FP) PO SCH (21:38)
[2021-06-02] MEDS ORDERED: oxyCODONE HCL 5 MG TABLET PO ONE (23:09)
[2021-06-03] MEDS ORDERED: PIPERACILLIN/TAZOBACTAM 2.25 GM VIAL IVPB ONE ×3 (01:31→17:34)
[2021-06-03] MEDS ORDERED: DEXTROSE 5%-WATER - 50 ML IVPB ONE ×3 (01:31→17:34)
[2021-06-03] MEDS: PIPERACILLIN/TAZOB 2.25 GM 2.25 GM in DEXTROSE 5%-WATER - 50 ML IVPB SCH ×3 (01:36→17:39)
[2021-06-03] MEDS: LEVOTHYROXINE NA 25 MCG TABLET (FP) PO SCH (06:01)
[2021-06-03] MEDS: oxyCODONE HCL 5 MG TABLET PO SCH ×3 (06:01→21:08)
[2021-06-03] MEDS: TIZANIDINE HCL 2 MG TABLET PO PRN ×2 (06:11→21:08)
[2021-06-03] MEDS: GABAPENTIN 300 MG CAPSULE PO SCH ×3 (06:37→21:08)
[2021-06-03] MEDS: ACETAMINOPHEN 325 MG TABLET (FP) PO SCH ×3 (07:08→21:09)
[2021-06-03] MEDS: INSULIN SLIDING SCALE (NOVOLOG) 1 VIAL SQ SCH ×4 (07:27→21:14)
[2021-06-03] MEDS: CALCIUM ACETATE 667 MG CAPSULE (FP) PO SCH ×3 (08:38→17:39)
[2021-06-03 11:10] LABS: HEMATOCRIT 23.3 % (35.4-49); HEMOGLOBIN 7.7 GM/dL (11.7-16.9); MCH 30.3 pg (25.7-33.7); MCHC 32.9 g/dl (32.0-35.9); MEAN CELL VOLUME 92.1 fl (80-96); MEAN PLT VOLUME 8.2 fl (7.5-11.1); PLATELET COUNT 212 10^3/uL (134-434); RBC 2.53 M/mm3 (4.00-5.60); RDW 16.3 % (11.9-15.9)
[2021-06-03] MEDS ORDERED: EPOETIN ALFA-EPBX 10,000 UNIT/ML VIAL IVPUSH ONE (11:15)
[2021-06-03 11:35] LABS: CALCIUM 8.3 mg/dL (8.5-10.1)
[2021-06-03 11:36] LABS: BLOOD UREA NITROGEN 29.5 mg/dL (7-18)
[2021-06-03 11:39] LABS: CREATININE 6.9 mg/dL (0.55-1.3)
[2021-06-03] MEDS ORDERED: EPOETIN ALFA-EPBX 10,000 UNIT/ML VIAL SQ ONE (18:00)
[2021-06-03] MEDS: ATORVASTATIN CA 40 MG TABLET (FP) PO SCH (21:08)
[2021-06-04] MEDS: PIPERACILLIN/TAZOB 2.25 GM 2.25 GM in DEXTROSE 5%-WATER - 50 ML IVPB SCH ×3 (03:00→17:21)
[2021-06-04] MEDS ORDERED: PIPERACILLIN/TAZOBACTAM 2.25 GM VIAL IVPB ONE ×3 (03:04→16:59)
[2021-06-04] MEDS ORDERED: DEXTROSE 5%-WATER - 50 ML IVPB ONE ×3 (03:04→17:00)
[2021-06-04] MEDS: GABAPENTIN 300 MG CAPSULE PO SCH ×3 (05:13→21:17)
[2021-06-04] MEDS: oxyCODONE HCL 5 MG TABLET PO SCH ×3 (05:13→21:17)
[2021-06-04] MEDS: ACETAMINOPHEN 325 MG TABLET (FP) PO SCH ×3 (05:14→21:17)
[2021-06-04] MEDS ORDERED: INSULIN (NOVOLOG) ASPART 100 UNITS/ML 10ML VIAL ONE ×2 (07:00→07:01)
[2021-06-04] MEDS: CALCIUM ACETATE 667 MG CAPSULE (FP) PO SCH ×2 (10:00→17:21)
[2021-06-04] MEDS: INSULIN SLIDING SCALE (NOVOLOG) 1 VIAL SQ SCH ×4 (10:01→21:26)
[2021-06-04] MEDS: LEVOTHYROXINE NA 25 MCG TABLET (FP) PO SCH (10:12)
[2021-06-04] MEDS ORDERED: PROPOFOL 20 ML ONE (12:00)
[2021-06-04] MEDS ORDERED: MIDAZOLAM HCL 2 MG/2 ML SINGLE DOSE VIAL ONE (12:00)
[2021-06-04] MEDS ORDERED: LIDOCAINE HCL 1%, 10 MG/ML (20ML VIAL) NR ONE (12:17)
[2021-06-04] MEDS ORDERED: IOVERSOL 320 MG/ML ML IV ONE ×2 (12:21)
[2021-06-04] MEDS ORDERED: METOPROLOL TARTRATE 5 MG/5 ML VIAL ONE (13:06)
[2021-06-04] MEDS ORDERED: HEPARIN NA (PORCINE) 5,000 UNITS/ML 1ML VIAL ONE (13:06)
[2021-06-04] MEDS ORDERED: MINERAL OIL/PETROLATUM,WHITE 3.5 GM TUBE ONE (13:09)
[2021-06-04] MEDS ORDERED: CLOPIDOGREL BISULFATE 75 MG TABLET (FP) ONE (14:02)
[2021-06-04] MEDS ORDERED: CLOPIDOGREL BISULFATE 75 MG TABLET (FP) PO ONE (14:08)
[2021-06-04] MEDS: CLOPIDOGREL BISULFATE 75 MG TABLET (FP) PO SCH (16:04)
[2021-06-04] MEDS ORDERED: VANCOMYCIN 1 GRAM (PRE-DOCKED) 1,000 MG/250 ML BAG IVPB ONE (16:31)
[2021-06-04] MEDS ORDERED: SODIUM CHLORIDE 250 ML IV PRN (18:13)
[2021-06-04] MEDS: TIZANIDINE HCL 2 MG TABLET PO PRN (21:17)
[2021-06-04] MEDS: ATORVASTATIN CA 40 MG TABLET (FP) PO SCH (21:17)
[2021-06-05] MEDS ORDERED: DEXTROSE 5%-WATER - 50 ML IVPB ONE ×3 (02:45→17:02)
[2021-06-05] MEDS ORDERED: PIPERACILLIN/TAZOBACTAM 2.25 GM VIAL IVPB ONE ×3 (02:45→17:02)
[2021-06-05] MEDS: PIPERACILLIN/TAZOB 2.25 GM 2.25 GM in DEXTROSE 5%-WATER - 50 ML IVPB SCH ×5 (03:00→17:02)
[2021-06-05] MEDS: ACETAMINOPHEN 325 MG TABLET (FP) PO SCH ×3 (05:51→22:11)
[2021-06-05] MEDS: GABAPENTIN 300 MG CAPSULE PO SCH ×3 (05:51→22:11)
[2021-06-05] MEDS: oxyCODONE HCL 5 MG TABLET PO SCH ×3 (05:52→22:12)
[2021-06-05] MEDS: INSULIN SLIDING SCALE (NOVOLOG) 1 VIAL SQ SCH ×5 (06:28→22:11)
[2021-06-05] MEDS: LEVOTHYROXINE NA 25 MCG TABLET (FP) PO SCH (06:30)
[2021-06-05] MEDS: CALCIUM ACETATE 667 MG CAPSULE (FP) PO SCH ×4 (08:23→16:54)
[2021-06-05] MEDS: CLOPIDOGREL BISULFATE 75 MG TABLET (FP) PO SCH (10:33)
[2021-06-05] MEDS ORDERED: EPOETIN ALFA-EPBX 20,000 UNIT/ML VIAL IVPUSH ONE ×2 (10:45→12:15)
[2021-06-05] MEDS: HEPARIN NA (PORCINE) 5,000 UNITS/ML 1ML VIAL IVPUSH ONE ×2 (11:09→12:01)
[2021-06-05] MEDS: BACITRACIN 15 GM TUBE TOPICAL OINTMENT TP SCH (16:59)
[2021-06-05] MEDS: TIZANIDINE HCL 2 MG TABLET PO PRN (17:14)
[2021-06-05] MEDS ORDERED: INSULIN (NOVOLOG) ASPART 100 UNITS/ML 10ML VIAL ONE (17:16)
[2021-06-05] MEDS: ATORVASTATIN CA 40 MG TABLET (FP) PO SCH (22:11)
[2021-06-06] MEDS: TIZANIDINE HCL 2 MG TABLET PO PRN ×2 (00:46→21:27)
[2021-06-06] MEDS ORDERED: DEXTROSE 5%-WATER - 50 ML IVPB ONE ×3 (01:05→17:01)
[2021-06-06] MEDS ORDERED: PIPERACILLIN/TAZOBACTAM 2.25 GM VIAL IVPB ONE ×3 (01:05→17:01)
[2021-06-06] MEDS: PIPERACILLIN/TAZOB 2.25 GM 2.25 GM in DEXTROSE 5%-WATER - 50 ML IVPB SCH ×3 (02:29→17:06)
[2021-06-06] MEDS: LEVOTHYROXINE NA 25 MCG TABLET (FP) PO SCH (06:08)
[2021-06-06] MEDS: GABAPENTIN 300 MG CAPSULE PO SCH ×3 (06:08→21:27)
[2021-06-06] MEDS: INSULIN SLIDING SCALE (NOVOLOG) 1 VIAL SQ SCH ×4 (06:08→21:32)
[2021-06-06] MEDS: oxyCODONE HCL 5 MG TABLET PO SCH ×3 (06:09→21:27)
[2021-06-06] MEDS: ACETAMINOPHEN 325 MG TABLET (FP) PO SCH ×3 (06:13→21:28)
[2021-06-06] MEDS ORDERED: VANCOMYCIN 1 GRAM (PRE-DOCKED) 1,000 MG/250 ML BAG IVPB ONE (07:52)
[2021-06-06] MEDS: CALCIUM ACETATE 667 MG CAPSULE (FP) PO SCH ×3 (09:37→17:08)
[2021-06-06] MEDS: CLOPIDOGREL BISULFATE 75 MG TABLET (FP) PO SCH (09:38)
[2021-06-06 11:35] LABS: BASO % 0.5 % (0-2.0); CHLORIDE 95 mmol/L (98-107); EOS % 4.8 % (0-4.5); HEMATOCRIT 20.3 % (35.4-49); LYMPH % 13.2 % (8-40); MCH 29.9 pg (25.7-33.7); MEAN CELL VOLUME 93.4 fl (80-96); MEAN PLT VOLUME 8.5 fl (7.5-11.1); MONO % 11.3 % (3.8-10.2); NEUT % 70.2 % (42.8-82.8); PLATELET COUNT 175 10^3/uL (134-434); RBC 2.18 M/mm3 (4.00-5.60); RDW 16.8 % (11.9-15.9); SODIUM 132 mmol/L (136-145)
[2021-06-06 11:38] LABS: BLOOD UREA NITROGEN 22.6 mg/dL (7-18); HEMOGLOBIN 6.5 GM/dL (11.7-16.9)
[2021-06-06 11:39] LABS: ALBUMIN 1.9 g/dl (3.4-5.0); ANION GAP 11 MMOL/L (8-16); CO2 26 mmol/L (21-32)
[2021-06-06 11:41] LABS: CREATININE 5.3 mg/dL (0.55-1.3); SGOT/AST 8 U/L (15-37); SGPT/ALT 15 U/L (13-61)
[2021-06-06 11:42] LABS: BILIRUBIN,TOTAL 0.5 mg/dL (0.2-1)
[2021-06-06 11:43] LABS: TOT PROT 6.8 g/dl (6.4-8.2)
[2021-06-06 11:44] LABS: ALK PHOS 94 U/L (45-117)
[2021-06-06] MEDS ORDERED: INSULIN (NOVOLOG) ASPART 100 UNITS/ML 10ML VIAL ONE (11:44)
[2021-06-06 11:47] LABS: GLUCOSE,RANDOM 430 mg/dL (74-106)
[2021-06-06] MEDS: BACITRACIN 15 GM TUBE TOPICAL OINTMENT TP SCH (11:57)
[2021-06-06 11:59] LABS: PLATELET ESTIMATE NORMAL
[2021-06-06] MEDS ORDERED: PT OWN MED DRAWER 7, Y5N ONE (17:21)
[2021-06-06] MEDS: ATORVASTATIN CA 40 MG TABLET (FP) PO SCH (21:27)
[2021-06-07] MEDS ORDERED: PIPERACILLIN/TAZOBACTAM 2.25 GM VIAL IVPB ONE ×3 (01:23→17:04)
[2021-06-07] MEDS ORDERED: DEXTROSE 5%-WATER - 50 ML IVPB ONE ×3 (01:23→17:04)
[2021-06-07] MEDS: PIPERACILLIN/TAZOB 2.25 GM 2.25 GM in DEXTROSE 5%-WATER - 50 ML IVPB SCH ×3 (01:30→17:18)
[2021-06-07] MEDS: oxyCODONE HCL 5 MG TABLET PO SCH ×3 (06:46→21:46)
[2021-06-07] MEDS: ACETAMINOPHEN 325 MG TABLET (FP) PO SCH ×3 (06:46→21:46)
[2021-06-07] MEDS: GABAPENTIN 300 MG CAPSULE PO SCH ×3 (06:46→21:45)
[2021-06-07] MEDS: LEVOTHYROXINE NA 25 MCG TABLET (FP) PO SCH (06:46)
[2021-06-07] MEDS: INSULIN SLIDING SCALE (NOVOLOG) 1 VIAL SQ SCH ×4 (06:59→21:50)
[2021-06-07] MEDS: CALCIUM ACETATE 667 MG CAPSULE (FP) PO SCH ×3 (08:43→17:36)
[2021-06-07] MEDS ORDERED: PT OWN MED DRAWER 7, Y5N ONE (09:15)
[2021-06-07] MEDS: CLOPIDOGREL BISULFATE 75 MG TABLET (FP) PO SCH (09:19)
[2021-06-07] MEDS: BACITRACIN 15 GM TUBE TOPICAL OINTMENT TP SCH (11:51)
[2021-06-07] MEDS ORDERED: SODIUM CHLORIDE 250 ML IV PRN (15:00)
[2021-06-07] MEDS ORDERED: INSULIN (NOVOLOG) ASPART 100 UNITS/ML 10ML VIAL ONE (21:24)
[2021-06-07] MEDS: TIZANIDINE HCL 2 MG TABLET PO PRN (21:45)
[2021-06-07] MEDS: ATORVASTATIN CA 40 MG TABLET (FP) PO SCH (21:46)
[2021-06-08] MEDS ORDERED: PIPERACILLIN/TAZOBACTAM 2.25 GM VIAL IVPB ONE ×2 (02:11→09:18)
[2021-06-08] MEDS ORDERED: DEXTROSE 5%-WATER - 50 ML IVPB ONE ×2 (02:11→09:18)
[2021-06-08] MEDS: PIPERACILLIN/TAZOB 2.25 GM 2.25 GM in DEXTROSE 5%-WATER - 50 ML IVPB SCH ×2 (02:15→14:45)
[2021-06-08] MEDS: GABAPENTIN 300 MG CAPSULE PO SCH ×3 (05:46→21:41)
[2021-06-08] MEDS: ACETAMINOPHEN 325 MG TABLET (FP) PO SCH ×3 (05:47→21:43)
[2021-06-08] MEDS: oxyCODONE HCL 5 MG TABLET PO SCH ×3 (05:47→21:44)
[2021-06-08] MEDS: INSULIN SLIDING SCALE (NOVOLOG) 1 VIAL SQ SCH ×4 (06:02→21:46)
[2021-06-08] MEDS: LEVOTHYROXINE NA 25 MCG TABLET (FP) PO SCH (06:03)
[2021-06-08] MEDS: CALCIUM ACETATE 667 MG CAPSULE (FP) PO SCH ×3 (08:52→17:50)
[2021-06-08] MEDS ORDERED: IRON SUCROSE INJECTION 100 MG in SODIUM CHLORIDE 95 ML IVPB ONE (10:00)
[2021-06-08] MEDS ORDERED: EPOETIN ALFA-EPBX 20,000 UNIT/ML VIAL IVPUSH ONE (10:00)
[2021-06-08 11:01] LABS: HEMOGLOBIN 7.8 GM/dL (11.7-16.9); MCH 29.9 pg (25.7-33.7); MCHC 32.4 g/dl (32.0-35.9); MEAN CELL VOLUME 92.5 fl (80-96); MEAN PLT VOLUME 8.4 fl (7.5-11.1); PLATELET COUNT 188 10^3/uL (134-434); RDW 16.2 % (11.9-15.9); WHITE BLOOD COUNT 7.7 K/mm3 (4.0-10.0)
[2021-06-08 11:10] LABS: CHLORIDE 100 mmol/L (98-107); SODIUM 137 mmol/L (136-145)
[2021-06-08 11:13] LABS: ANION GAP 10 MMOL/L (8-16); BLOOD UREA NITROGEN 41.3 mg/dL (7-18); CALCIUM 8.1 mg/dL (8.5-10.1); CO2 27 mmol/L (21-32); GLUCOSE,RANDOM 241 mg/dL (74-106)
[2021-06-08 11:19] LABS: CREATININE 8.4 mg/dL (0.55-1.3)
[2021-06-08] MEDS ORDERED: VANCOMYCIN 1 GRAM (PRE-DOCKED) 1,000 MG/250 ML BAG IVPB ONE (15:15)
[2021-06-08] MEDS: CLOPIDOGREL BISULFATE 75 MG TABLET (FP) PO SCH (15:18)
[2021-06-08] MEDS: BACITRACIN 15 GM TUBE TOPICAL OINTMENT TP SCH (15:47)
[2021-06-08] MEDS ORDERED: SODIUM CHLORIDE 250 ML IV PRN (16:31)
[2021-06-08] MEDS ORDERED: INSULIN (NOVOLOG) ASPART 100 UNITS/ML 10ML VIAL ONE ×2 (17:48→21:37)
[2021-06-08] MEDS ORDERED: PT OWN MED DRAWER 7, Y5N ONE (17:48)
[2021-06-08] MEDS: ATORVASTATIN CA 40 MG TABLET (FP) PO SCH (21:41)
[2021-06-09] MEDS: LEVOTHYROXINE NA 25 MCG TABLET (FP) PO SCH (06:09)
[2021-06-09] MEDS: ACETAMINOPHEN 325 MG TABLET (FP) PO SCH ×3 (06:10→21:28)
[2021-06-09] MEDS: GABAPENTIN 300 MG CAPSULE PO SCH ×3 (06:11→21:28)
[2021-06-09] MEDS: oxyCODONE HCL 5 MG TABLET PO SCH ×3 (06:11→21:31)
[2021-06-09 10:54] LABS: ALBUMIN 1.8 g/dl (3.4-5.0); CALCIUM 8.3 mg/dL (8.5-10.1)
[2021-06-09 10:55] LABS: BLOOD UREA NITROGEN 24.7 mg/dL (7-18)
[2021-06-09 10:57] LABS: CREATININE 5.7 mg/dL (0.55-1.3)
[2021-06-09 10:59] LABS: BILIRUBIN,TOTAL 0.3 mg/dL (0.2-1); TOT PROT 6.8 g/dl (6.4-8.2)
[2021-06-09] MEDS: INSULIN SLIDING SCALE (NOVOLOG) 1 VIAL SQ SCH ×4 (11:06→21:46)
[2021-06-09 11:07] LABS: HEMOGLOBIN 8.3 GM/dL (11.7-16.9); MCH 29.6 pg (25.7-33.7); MCHC 32.1 g/dl (32.0-35.9); MEAN CELL VOLUME 92.5 fl (80-96); MEAN PLT VOLUME 8.6 fl (7.5-11.1); PLATELET COUNT 199 10^3/uL (134-434); RBC 2.81 M/mm3 (4.00-5.60); RDW 16.4 % (11.9-15.9)
[2021-06-09] MEDS: BACITRACIN 15 GM TUBE TOPICAL OINTMENT TP SCH (11:10)
[2021-06-09] MEDS: CALCIUM ACETATE 667 MG CAPSULE (FP) PO SCH ×3 (11:10→17:33)
[2021-06-09] MEDS: CLOPIDOGREL BISULFATE 75 MG TABLET (FP) PO SCH ×2 (11:10→15:11)
[2021-06-09] MEDS ORDERED: EPOETIN ALFA-EPBX 20,000 UNIT/ML VIAL IVPUSH ONE (11:16)
[2021-06-09] MEDS ORDERED: SODIUM CHLORIDE 250 ML IV PRN (11:16)
[2021-06-09] MEDS ORDERED: INSULIN (NOVOLOG) ASPART 100 UNITS/ML 10ML VIAL ONE (17:34)
[2021-06-09] MEDS: ATORVASTATIN CA 40 MG TABLET (FP) PO SCH (21:28)
[2021-06-10] MEDS: oxyCODONE HCL 5 MG TABLET PO SCH ×3 (05:14→21:02)
[2021-06-10] MEDS: ACETAMINOPHEN 325 MG TABLET (FP) PO SCH ×3 (05:19→21:00)
[2021-06-10] MEDS: GABAPENTIN 300 MG CAPSULE PO SCH ×3 (05:19→21:00)
[2021-06-10] MEDS: LEVOTHYROXINE NA 25 MCG TABLET (FP) PO SCH (06:27)
[2021-06-10] MEDS: INSULIN SLIDING SCALE (NOVOLOG) 1 VIAL SQ SCH ×4 (07:03→21:39)
[2021-06-10] MEDS: CALCIUM ACETATE 667 MG CAPSULE (FP) PO SCH ×3 (08:23→17:37)
[2021-06-10] MEDS: CLOPIDOGREL BISULFATE 75 MG TABLET (FP) PO SCH ×2 (10:17→15:27)
[2021-06-10 11:55] LABS: CALCIUM 8.5 mg/dL (8.5-10.1)
[2021-06-10 11:56] LABS: BLOOD UREA NITROGEN 26.9 mg/dL (7-18)
[2021-06-10 11:59] LABS: CREATININE 5.9 mg/dL (0.55-1.3)
[2021-06-10] MEDS: BACITRACIN 15 GM TUBE TOPICAL OINTMENT TP SCH (12:20)
[2021-06-10] MEDS: TIZANIDINE HCL 2 MG TABLET PO PRN (15:33)
[2021-06-10] MEDS: ATORVASTATIN CA 40 MG TABLET (FP) PO SCH (21:00)
[2021-06-10] MEDS ORDERED: VANCOMYCIN 1 GRAM (PRE-DOCKED) 1,000 MG/250 ML BAG IVPB ONE (21:55)
[2021-06-11] MEDS: LEVOTHYROXINE NA 25 MCG TABLET (FP) PO SCH (06:21)
[2021-06-11] MEDS: GABAPENTIN 300 MG CAPSULE PO SCH ×3 (06:21→21:05)
[2021-06-11] MEDS: TIZANIDINE HCL 2 MG TABLET PO PRN (06:21)
[2021-06-11] MEDS: oxyCODONE HCL 5 MG TABLET PO SCH ×3 (06:22→21:05)
[2021-06-11] MEDS: ACETAMINOPHEN 325 MG TABLET (FP) PO SCH ×3 (06:23→21:07)
[2021-06-11] MEDS: INSULIN SLIDING SCALE (NOVOLOG) 1 VIAL SQ SCH ×4 (06:58→21:06)
[2021-06-11] MEDS: CALCIUM ACETATE 667 MG CAPSULE (FP) PO SCH ×3 (08:09→18:18)
[2021-06-11] MEDS: CLOPIDOGREL BISULFATE 75 MG TABLET (FP) PO SCH (11:17)
[2021-06-11] MEDS: BACITRACIN 15 GM TUBE TOPICAL OINTMENT TP SCH (14:15)
[2021-06-11] MEDS: ATORVASTATIN CA 40 MG TABLET (FP) PO SCH (21:05)
[2021-06-12] MEDS: GABAPENTIN 300 MG CAPSULE PO SCH ×3 (06:56→22:28)
[2021-06-12] MEDS: LEVOTHYROXINE NA 25 MCG TABLET (FP) PO SCH (06:56)
[2021-06-12] MEDS: ACETAMINOPHEN 325 MG TABLET (FP) PO SCH ×3 (06:57→22:28)
[2021-06-12] MEDS: oxyCODONE HCL 5 MG TABLET PO SCH ×3 (06:57→22:29)
[2021-06-12] MEDS: INSULIN SLIDING SCALE (NOVOLOG) 1 VIAL SQ SCH ×4 (06:59→22:28)
[2021-06-12] MEDS: CALCIUM ACETATE 667 MG CAPSULE (FP) PO SCH ×3 (07:49→16:50)
[2021-06-12 09:23] LABS: HEMATOCRIT 27.4 % (35.4-49); HEMOGLOBIN 8.6 GM/dL (11.7-16.9); MCHC 31.4 g/dl (32.0-35.9); MEAN CELL VOLUME 92.1 fl (80-96); PLATELET COUNT 248 10^3/uL (134-434); RBC 2.97 M/mm3 (4.00-5.60); RDW 16.4 % (11.9-15.9); WHITE BLOOD COUNT 7.5 K/mm3 (4.0-10.0)
[2021-06-12] MEDS ORDERED: EPOETIN ALFA-EPBX 20,000 UNIT/ML VIAL IVPUSH ONE (10:00)
[2021-06-12] MEDS ORDERED: SODIUM CHLORIDE 250 ML IV PRN (11:20)
[2021-06-12] MEDS ORDERED: PT OWN MED DRAWER 7, Y5N ONE (13:47)
[2021-06-12] MEDS: CLOPIDOGREL BISULFATE 75 MG TABLET (FP) PO SCH (13:49)
[2021-06-12] MEDS: TIZANIDINE HCL 2 MG TABLET PO PRN (13:55)
[2021-06-12] MEDS: BACITRACIN 15 GM TUBE TOPICAL OINTMENT TP SCH (16:14)
[2021-06-12] MEDS: ATORVASTATIN CA 40 MG TABLET (FP) PO SCH (22:28)
[2021-06-13] MEDS: GABAPENTIN 300 MG CAPSULE PO SCH ×3 (06:36→21:52)
[2021-06-13] MEDS: LEVOTHYROXINE NA 25 MCG TABLET (FP) PO SCH (06:36)
[2021-06-13] MEDS: ACETAMINOPHEN 325 MG TABLET (FP) PO SCH ×3 (06:36→21:53)
[2021-06-13] MEDS: oxyCODONE HCL 5 MG TABLET PO SCH ×3 (06:36→22:13)
[2021-06-13] MEDS: INSULIN SLIDING SCALE (NOVOLOG) 1 VIAL SQ SCH ×4 (06:40→23:36)
[2021-06-13] MEDS: CALCIUM ACETATE 667 MG CAPSULE (FP) PO SCH ×3 (08:52→17:43)
[2021-06-13] MEDS: CLOPIDOGREL BISULFATE 75 MG TABLET (FP) PO SCH (10:19)
[2021-06-13] MEDS: BACITRACIN 15 GM TUBE TOPICAL OINTMENT TP SCH (10:19)
[2021-06-13] MEDS ORDERED: VANCOMYCIN 1 GRAM (PRE-DOCKED) 1,000 MG/250 ML BAG IVPB ONE (12:01)
[2021-06-13] MEDS ORDERED: PT OWN MED DRAWER 7, Y5N ONE (12:24)
[2021-06-13] MEDS: ATORVASTATIN CA 40 MG TABLET (FP) PO SCH (21:52)
[2021-06-13] MEDS: TIZANIDINE HCL 2 MG TABLET PO PRN (23:08)
[2021-06-13] MEDS ORDERED: INSULIN (NOVOLOG) ASPART 100 UNITS/ML 10ML VIAL ONE (23:26)
[2021-06-14] MEDS: ACETAMINOPHEN 325 MG TABLET (FP) PO SCH ×3 (05:38→22:12)
[2021-06-14] MEDS: GABAPENTIN 300 MG CAPSULE PO SCH ×3 (05:39→22:09)
[2021-06-14] MEDS: TIZANIDINE HCL 2 MG TABLET PO PRN ×2 (05:46→13:00)
[2021-06-14] MEDS: oxyCODONE HCL 5 MG TABLET PO SCH ×3 (05:47→22:09)
[2021-06-14] MEDS: LEVOTHYROXINE NA 25 MCG TABLET (FP) PO SCH (06:00)
[2021-06-14] MEDS: INSULIN SLIDING SCALE (NOVOLOG) 1 VIAL SQ SCH ×4 (09:02→21:10)
[2021-06-14 09:19] LABS: BASO % 0.2 % (0-2.0); EOS % 3.7 % (0-4.5); HEMATOCRIT 28.4 % (35.4-49); LYMPH % 11.2 % (8-40); MCH 29.1 pg (25.7-33.7); MCHC 31.6 g/dl (32.0-35.9); MEAN CELL VOLUME 92.1 fl (80-96); MEAN PLT VOLUME 8.3 fl (7.5-11.1); NEUT % 78.9 % (42.8-82.8); PLATELET COUNT 266 10^3/uL (134-434); RBC 3.08 M/mm3 (4.00-5.60); RDW 16.9 % (11.9-15.9); WHITE BLOOD COUNT 8.9 K/mm3 (4.0-10.0)
[2021-06-14] MEDS: CLOPIDOGREL BISULFATE 75 MG TABLET (FP) PO SCH (09:57)
[2021-06-14] MEDS: BACITRACIN 15 GM TUBE TOPICAL OINTMENT TP SCH (09:57)
[2021-06-14] MEDS: CALCIUM ACETATE 667 MG CAPSULE (FP) PO SCH ×3 (09:57→17:14)
[2021-06-14 09:59] LABS: ALBUMIN 2.2 g/dl (3.4-5.0); BLOOD UREA NITROGEN 38.1 mg/dL (7-18); CALCIUM 8.7 mg/dL (8.5-10.1)
[2021-06-14 10:03] LABS: BILIRUBIN,TOTAL 0.9 mg/dL (0.2-1)
[2021-06-14 10:04] LABS: TOT PROT 7.6 g/dl (6.4-8.2)
[2021-06-14] MEDS: ATORVASTATIN CA 40 MG TABLET (FP) PO SCH (22:09)
[2021-06-15] MEDS: GABAPENTIN 300 MG CAPSULE PO SCH ×3 (05:34→22:06)
[2021-06-15] MEDS: oxyCODONE HCL 5 MG TABLET PO SCH ×4 (05:35→22:11)
[2021-06-15] MEDS: ACETAMINOPHEN 325 MG TABLET (FP) PO SCH ×4 (05:36→22:48)
[2021-06-15] MEDS ORDERED: LIDOCAINE 2.5%/PRILOCAINE 2.5% 30 GRAM TUBE TP ONE ×2 (06:00→13:39)
[2021-06-15] MEDS: LEVOTHYROXINE NA 25 MCG TABLET (FP) PO SCH (06:17)
[2021-06-15] MEDS: INSULIN SLIDING SCALE (NOVOLOG) 1 VIAL SQ SCH ×4 (07:00→22:00)
[2021-06-15 09:49] LABS: BASO % 0.3 % (0-2.0); EOS % 3.7 % (0-4.5); HEMATOCRIT 24.9 % (35.4-49); HEMOGLOBIN 7.8 GM/dL (11.7-16.9); LYMPH % 12.3 % (8-40); MCH 28.8 pg (25.7-33.7); MCHC 31.4 g/dl (32.0-35.9); MEAN CELL VOLUME 91.8 fl (80-96); MEAN PLT VOLUME 7.8 fl (7.5-11.1); MONO % 7.5 % (3.8-10.2); NEUT % 76.2 % (42.8-82.8); PLATELET COUNT 250 10^3/uL (134-434); RBC 2.71 M/mm3 (4.00-5.60); RDW 16.3 % (11.9-15.9); WHITE BLOOD COUNT 8.8 K/mm3 (4.0-10.0)
[2021-06-15 10:12] LABS: CHLORIDE 105 mmol/L (98-107); SODIUM 140 mmol/L (136-145)
[2021-06-15 10:15] LABS: CALCIUM 8.3 mg/dL (8.5-10.1)
[2021-06-15 10:16] LABS: BLOOD UREA NITROGEN 50.7 mg/dL (7-18); GLUCOSE,RANDOM 129 mg/dL (74-106)
[2021-06-15 10:19] LABS: SGOT/AST 18 U/L (15-37); SGPT/ALT 47 U/L (13-61)
[2021-06-15 10:21] LABS: BILIRUBIN,TOTAL 0.5 mg/dL (0.2-1)
[2021-06-15 10:22] LABS: ALK PHOS 120 U/L (45-117)
[2021-06-15] MEDS ORDERED: PROPOFOL 20 ML ONE ×2 (10:43)
[2021-06-15] MEDS ORDERED: MIDAZOLAM HCL 2 MG/2 ML SINGLE DOSE VIAL ONE (10:43)
[2021-06-15 10:47] LABS: ANION GAP 11 MMOL/L (8-16); CO2 24 mmol/L (21-32); CREATININE 8.4 mg/dL (0.55-1.3)
[2021-06-15] MEDS ORDERED: LIDOCAINE HCL 1%, 10 MG/ML (20ML VIAL) ONE (10:48)
[2021-06-15] MEDS ORDERED: HEPARIN NA (PORCINE) 5,000 UNITS/ML 1ML VIAL ONE ×3 (10:48→13:00)
[2021-06-15] MEDS ORDERED: LIDOCAINE HCL 1%, 10 MG/ML (20ML VIAL) NR ONE ×2 (11:41)
[2021-06-15] MEDS ORDERED: IOVERSOL 320 MG/ML ML IV ONE (11:45)
[2021-06-15] MEDS ORDERED: ONDANSETRON 4 MG/2 ML VIAL IVPUSH PRN (13:28)
[2021-06-15] MEDS: CALCIUM ACETATE 667 MG CAPSULE (FP) PO SCH ×2 (19:31→20:14)
[2021-06-15] MEDS: BACITRACIN 15 GM TUBE TOPICAL OINTMENT TP SCH (19:31)
[2021-06-15] MEDS: CLOPIDOGREL BISULFATE 75 MG TABLET (FP) PO SCH (19:32)
[2021-06-15] MEDS: SODIUM CHLORIDE 1,000 ML IV SCH (20:12)
[2021-06-15] MEDS: ATORVASTATIN CA 40 MG TABLET (FP) PO SCH (22:05)
[2021-06-15] MEDS: TIZANIDINE HCL 2 MG TABLET PO PRN (22:06)
[2021-06-15] MEDS ORDERED: VANCOMYCIN 1 GM in D5W (PRE-DOCKED) 1,000 MG/250 ML IVPB ONE (23:00)
[2021-06-16] MEDS: oxyCODONE HCL 5 MG TABLET PO SCH ×3 (06:07→22:45)
[2021-06-16] MEDS: ACETAMINOPHEN 325 MG TABLET (FP) PO SCH ×3 (06:13→22:50)
[2021-06-16] MEDS: LEVOTHYROXINE NA 25 MCG TABLET (FP) PO SCH (06:15)
[2021-06-16] MEDS: GABAPENTIN 300 MG CAPSULE PO SCH ×3 (06:15→22:57)
[2021-06-16] MEDS: INSULIN SLIDING SCALE (NOVOLOG) 1 VIAL SQ SCH ×3 (07:25→16:01)
[2021-06-16] MEDS: CALCIUM ACETATE 667 MG CAPSULE (FP) PO SCH ×3 (10:06→18:49)
[2021-06-16] MEDS: CLOPIDOGREL BISULFATE 75 MG TABLET (FP) PO SCH (10:06)
[2021-06-16] MEDS ORDERED: PT OWN MED DRAWER 7, Y5N ONE (15:50)
[2021-06-16] MEDS ORDERED: INSULIN (NOVOLOG) ASPART 100 UNITS/ML 10ML VIAL ONE ×2 (15:51→22:41)
[2021-06-16] MEDS: TIZANIDINE HCL 2 MG TABLET PO PRN (16:01)
[2021-06-16] MEDS ORDERED: VANCOMYCIN 1 GRAM (PRE-DOCKED) 1,000 MG/250 ML BAG IVPB ONE (16:10)
[2021-06-16] MEDS: SODIUM CHLORIDE 1,000 ML IV SCH (16:55)
[2021-06-16] MEDS: BACITRACIN 15 GM TUBE TOPICAL OINTMENT TP SCH (18:26)
[2021-06-16] MEDS: ATORVASTATIN CA 40 MG TABLET (FP) PO SCH (22:44)
[2021-06-17] MEDS: INSULIN SLIDING SCALE (NOVOLOG) 1 VIAL SQ SCH ×5 (05:03→22:48)
[2021-06-17] MEDS: ACETAMINOPHEN 325 MG TABLET (FP) PO SCH ×3 (05:11→21:47)
[2021-06-17] MEDS: oxyCODONE HCL 5 MG TABLET PO SCH ×3 (05:12→21:49)
[2021-06-17] MEDS: GABAPENTIN 300 MG CAPSULE PO SCH ×3 (05:19→21:47)
[2021-06-17] MEDS: LEVOTHYROXINE NA 25 MCG TABLET (FP) PO SCH (06:52)
[2021-06-17] MEDS ORDERED: EPOETIN ALFA-EPBX 20,000 UNIT/ML VIAL IVPUSH ONE (12:59)
[2021-06-17] MEDS ORDERED: SODIUM CHLORIDE 250 ML IV PRN (13:00)
[2021-06-17] MEDS: TIZANIDINE HCL 2 MG TABLET PO PRN (15:49)
[2021-06-17] MEDS: CALCIUM ACETATE 667 MG CAPSULE (FP) PO SCH ×3 (15:49→17:26)
[2021-06-17] MEDS: CLOPIDOGREL BISULFATE 75 MG TABLET (FP) PO SCH (15:53)
[2021-06-17] MEDS: BACITRACIN 15 GM TUBE TOPICAL OINTMENT TP SCH (15:54)
[2021-06-17] MEDS: ATORVASTATIN CA 40 MG TABLET (FP) PO SCH (21:47)
[2021-06-18] MEDS: GABAPENTIN 300 MG CAPSULE PO SCH ×3 (06:30→22:38)
[2021-06-18] MEDS: oxyCODONE HCL 5 MG TABLET PO SCH ×3 (06:30→22:37)
[2021-06-18] MEDS: ACETAMINOPHEN 325 MG TABLET (FP) PO SCH ×3 (06:32→22:38)
[2021-06-18] MEDS: LEVOTHYROXINE NA 25 MCG TABLET (FP) PO SCH (06:38)
[2021-06-18] MEDS: INSULIN SLIDING SCALE (NOVOLOG) 1 VIAL SQ SCH ×4 (07:34→22:45)
[2021-06-18] MEDS: CALCIUM ACETATE 667 MG CAPSULE (FP) PO SCH ×3 (10:00→17:01)
[2021-06-18] MEDS: CLOPIDOGREL BISULFATE 75 MG TABLET (FP) PO SCH (10:00)
[2021-06-18] MEDS: BACITRACIN 15 GM TUBE TOPICAL OINTMENT TP SCH (10:05)
[2021-06-18] MEDS ORDERED: HEPARIN NA (PORCINE) 5,000 UNITS/ML 1ML VIAL IVPUSH SCH (10:30)
[2021-06-18] MEDS ORDERED: HEPARIN NA (PORCINE) 5,000 UNITS/ML 1ML VIAL IVPUSH ONE (10:45)
[2021-06-18 15:39] LABS: BASO % 0.2 % (0-2.0); EOS % 4.7 % (0-4.5); HEMATOCRIT 26.3 % (35.4-49); LYMPH % 14.9 % (8-40); MCH 28.1 pg (25.7-33.7); MCHC 30.6 g/dl (32.0-35.9); MEAN PLT VOLUME 7.9 fl (7.5-11.1); NEUT % 71.2 % (42.8-82.8); PLATELET COUNT 250 10^3/uL (134-434); RBC 2.86 M/mm3 (4.00-5.60); RDW 16.5 % (11.9-15.9); WHITE BLOOD COUNT 7.1 K/mm3 (4.0-10.0)
[2021-06-18 15:52] LABS: CALCIUM 8.4 mg/dL (8.5-10.1)
[2021-06-18 15:56] LABS: CREATININE 5.6 mg/dL (0.55-1.3)
[2021-06-18 15:58] LABS: BILIRUBIN,TOTAL 0.2 mg/dL (0.2-1); TOT PROT 7.4 g/dl (6.4-8.2)
[2021-06-18 16:02] LABS: BLOOD UREA NITROGEN 24.6 mg/dL (7-18)
[2021-06-18] MEDS ORDERED: INSULIN (NOVOLOG) ASPART 100 UNITS/ML 10ML VIAL ONE (16:35)
[2021-06-18] MEDS: ATORVASTATIN CA 40 MG TABLET (FP) PO SCH (22:38)
[2021-06-18] MEDS: TIZANIDINE HCL 2 MG TABLET PO PRN (23:34)
[2021-06-19] MEDS: ACETAMINOPHEN 325 MG TABLET (FP) PO SCH ×3 (05:57→22:28)
[2021-06-19] MEDS: GABAPENTIN 300 MG CAPSULE PO SCH ×3 (05:57→22:28)
[2021-06-19] MEDS: oxyCODONE HCL 5 MG TABLET PO SCH ×3 (05:58→22:29)
[2021-06-19] MEDS: LEVOTHYROXINE NA 25 MCG TABLET (FP) PO SCH (06:11)
[2021-06-19] MEDS: INSULIN SLIDING SCALE (NOVOLOG) 1 VIAL SQ SCH ×4 (06:14→22:36)
[2021-06-19 10:43] LABS: HEMATOCRIT 23.6 % (35.4-49); HEMOGLOBIN 7.3 GM/dL (11.7-16.9); MCH 28.4 pg (25.7-33.7); MCHC 31.1 g/dl (32.0-35.9); MEAN CELL VOLUME 91.5 fl (80-96); MEAN PLT VOLUME 8.2 fl (7.5-11.1); PLATELET COUNT 247 10^3/uL (134-434); RBC 2.58 M/mm3 (4.00-5.60); RDW 16.5 % (11.9-15.9); WHITE BLOOD COUNT 7.4 K/mm3 (4.0-10.0)
[2021-06-19] MEDS ORDERED: SODIUM CHLORIDE 250 ML IV PRN (10:45)
[2021-06-19 11:11] LABS: ALBUMIN 2.1 g/dl (3.4-5.0); BLOOD UREA NITROGEN 33.3 mg/dL (7-18)
[2021-06-19 11:14] LABS: BILIRUBIN,TOTAL 0.2 mg/dL (0.2-1); CREATININE 6.4 mg/dL (0.55-1.3); TOT PROT 6.7 g/dl (6.4-8.2)
[2021-06-19] MEDS ORDERED: EPOETIN ALFA-EPBX 20,000 UNIT/ML VIAL IVPUSH ONE (11:15)
[2021-06-19 11:33] LABS: CALCIUM 8.1 mg/dL (8.5-10.1)
[2021-06-19] MEDS ORDERED: IRON SUCROSE INJECTION 100 MG in SODIUM CHLORIDE 95 ML IVPB ONE (13:00)
[2021-06-19] MEDS: CALCIUM ACETATE 667 MG CAPSULE (FP) PO SCH ×3 (14:02→16:52)
[2021-06-19] MEDS: BACITRACIN 15 GM TUBE TOPICAL OINTMENT TP SCH (14:11)
[2021-06-19] MEDS: CLOPIDOGREL BISULFATE 75 MG TABLET (FP) PO SCH (14:12)
[2021-06-19 14:32] LABS: HEMATOCRIT 23.3 % (35.4-49); HEMOGLOBIN 7.3 GM/dL (11.7-16.9); MCH 28.4 pg (25.7-33.7); MCHC 31.3 g/dl (32.0-35.9); MEAN CELL VOLUME 90.8 fl (80-96); MEAN PLT VOLUME 8.1 fl (7.5-11.1); PLATELET COUNT 244 10^3/uL (134-434); RBC 2.56 M/mm3 (4.00-5.60); RDW 16.2 % (11.9-15.9); WHITE BLOOD COUNT 6.5 K/mm3 (4.0-10.0)
[2021-06-19] MEDS: ATORVASTATIN CA 40 MG TABLET (FP) PO SCH (22:28)
[2021-06-19] MEDS: INSULIN (LEVEMIR) 100 UNITS/ML UNITS SQ SCH (22:35)
[2021-06-20] MEDS: ACETAMINOPHEN 325 MG TABLET (FP) PO SCH ×3 (05:22→21:30)
[2021-06-20] MEDS: GABAPENTIN 300 MG CAPSULE PO SCH ×3 (05:22→21:29)
[2021-06-20] MEDS: oxyCODONE HCL 5 MG TABLET PO SCH ×3 (05:23→21:29)
[2021-06-20] MEDS: INSULIN (LEVEMIR) 100 UNITS/ML UNITS SQ SCH ×2 (06:16→21:30)
[2021-06-20] MEDS: INSULIN SLIDING SCALE (NOVOLOG) 1 VIAL SQ SCH ×4 (06:16→21:30)
[2021-06-20] MEDS: LEVOTHYROXINE NA 25 MCG TABLET (FP) PO SCH (06:16)
[2021-06-20] MEDS: CALCIUM ACETATE 667 MG CAPSULE (FP) PO SCH ×3 (10:26→16:45)
[2021-06-20] MEDS: TIZANIDINE HCL 2 MG TABLET PO PRN (10:26)
[2021-06-20] MEDS: CLOPIDOGREL BISULFATE 75 MG TABLET (FP) PO SCH (10:26)
[2021-06-20] MEDS: BACITRACIN 15 GM TUBE TOPICAL OINTMENT TP SCH (10:26)
[2021-06-20] MEDS ORDERED: INSULIN (NOVOLOG) ASPART 100 UNITS/ML 10ML VIAL ONE (21:21)
[2021-06-20] MEDS: ATORVASTATIN CA 40 MG TABLET (FP) PO SCH (21:29)
[2021-06-21] MEDS: GABAPENTIN 300 MG CAPSULE PO SCH ×3 (05:03→21:37)
[2021-06-21] MEDS: oxyCODONE HCL 5 MG TABLET PO SCH ×3 (05:03→21:37)
[2021-06-21] MEDS: ACETAMINOPHEN 325 MG TABLET (FP) PO SCH ×3 (05:04→21:37)
[2021-06-21] MEDS: LEVOTHYROXINE NA 25 MCG TABLET (FP) PO SCH (06:29)
[2021-06-21] MEDS: INSULIN SLIDING SCALE (NOVOLOG) 1 VIAL SQ SCH ×4 (06:29→21:36)
[2021-06-21] MEDS: CALCIUM ACETATE 667 MG CAPSULE (FP) PO SCH ×3 (09:33→16:34)
[2021-06-21] MEDS: CLOPIDOGREL BISULFATE 75 MG TABLET (FP) PO SCH (09:33)
[2021-06-21] MEDS: BACITRACIN 15 GM TUBE TOPICAL OINTMENT TP SCH (09:35)
[2021-06-21 11:57] LABS: BASO % 0.3 % (0-2.0); EOS % 5.4 % (0-4.5); HEMATOCRIT 24.1 % (35.4-49); HEMOGLOBIN 7.4 GM/dL (11.7-16.9); LYMPH % 15.4 % (8-40); MCHC 30.6 g/dl (32.0-35.9); MEAN CELL VOLUME 91.4 fl (80-96); MEAN PLT VOLUME 8.2 fl (7.5-11.1); MONO % 7.3 % (3.8-10.2); NEUT % 71.6 % (42.8-82.8); PLATELET COUNT 247 10^3/uL (134-434); RBC 2.63 M/mm3 (4.00-5.60); RDW 16.6 % (11.9-15.9); WHITE BLOOD COUNT 6.9 K/mm3 (4.0-10.0)
[2021-06-21] MEDS: INSULIN (LEVEMIR) 100 UNITS/ML UNITS SQ SCH (21:36)
[2021-06-21] MEDS: ATORVASTATIN CA 40 MG TABLET (FP) PO SCH (21:37)
[2021-06-22] MEDS: oxyCODONE HCL 5 MG TABLET PO SCH ×2 (06:32→13:35)
[2021-06-22] MEDS: GABAPENTIN 300 MG CAPSULE PO SCH ×3 (06:32→23:35)
[2021-06-22] MEDS: ACETAMINOPHEN 325 MG TABLET (FP) PO SCH ×3 (06:32→23:35)
[2021-06-22] MEDS: LEVOTHYROXINE NA 25 MCG TABLET (FP) PO SCH (06:32)
[2021-06-22] MEDS: INSULIN SLIDING SCALE (NOVOLOG) 1 VIAL SQ SCH ×4 (06:35→23:48)
[2021-06-22] MEDS ORDERED: SODIUM CHLORIDE 250 ML IV PRN (07:00)
[2021-06-22] MEDS ORDERED: EPOETIN ALFA-EPBX 20,000 UNIT/ML VIAL IVPUSH ONE (08:00)
[2021-06-22] MEDS: ALBUMIN HUMAN 25% 12.5 GM/50 ML VIAL IVPB SCH ×4 (09:00→13:36)
[2021-06-22 10:33] LABS: HEMATOCRIT 23.8 % (35.4-49); HEMOGLOBIN 7.4 GM/dL (11.7-16.9); MCH 28.5 pg (25.7-33.7); MCHC 31.2 g/dl (32.0-35.9); MEAN CELL VOLUME 91.2 fl (80-96); MEAN PLT VOLUME 8.3 fl (7.5-11.1); PLATELET COUNT 246 10^3/uL (134-434); RBC 2.61 M/mm3 (4.00-5.60); RDW 16.5 % (11.9-15.9); WHITE BLOOD COUNT 6.9 K/mm3 (4.0-10.0)
[2021-06-22 10:56] LABS: BLOOD UREA NITROGEN 46.8 mg/dL (7-18); CALCIUM 7.8 mg/dL (8.5-10.1)
[2021-06-22 11:00] LABS: PHOSPHOROUS 6.8 mg/dL (2.5-4.9)
[2021-06-22 11:02] LABS: CREATININE 7.4 mg/dL (0.55-1.3)
[2021-06-22] MEDS: MIDODRINE HCL 5 MG TABLET PO SCH (11:10)
[2021-06-22] MEDS: CALCIUM ACETATE 667 MG CAPSULE (FP) PO SCH ×3 (12:17→16:52)
[2021-06-22] MEDS: CLOPIDOGREL BISULFATE 75 MG TABLET (FP) PO SCH (13:35)
[2021-06-22] MEDS: BACITRACIN 15 GM TUBE TOPICAL OINTMENT TP SCH (13:35)
[2021-06-22] MEDS: ATORVASTATIN CA 40 MG TABLET (FP) PO SCH (23:35)
[2021-06-22] MEDS: INSULIN (LEVEMIR) 100 UNITS/ML UNITS SQ SCH (23:51)
[2021-06-23] MEDS: oxyCODONE HCL 5 MG TABLET PO SCH ×4 (02:49→21:15)
[2021-06-23] MEDS: ACETAMINOPHEN 325 MG TABLET (FP) PO SCH ×3 (05:38→21:15)
[2021-06-23] MEDS: GABAPENTIN 300 MG CAPSULE PO SCH ×3 (05:39→21:14)
[2021-06-23] MEDS: INSULIN SLIDING SCALE (NOVOLOG) 1 VIAL SQ SCH ×4 (06:48→21:20)
[2021-06-23] MEDS: LEVOTHYROXINE NA 25 MCG TABLET (FP) PO SCH (06:54)
[2021-06-23] MEDS: CALCIUM ACETATE 667 MG CAPSULE (FP) PO SCH ×3 (09:58→16:36)
[2021-06-23] MEDS: BACITRACIN 15 GM TUBE TOPICAL OINTMENT TP SCH (09:58)
[2021-06-23] MEDS: CLOPIDOGREL BISULFATE 75 MG TABLET (FP) PO SCH (09:58)
[2021-06-23] MEDS ORDERED: SODIUM CHLORIDE 250 ML IV PRN (10:01)
[2021-06-23] MEDS: ATORVASTATIN CA 40 MG TABLET (FP) PO SCH (21:14)
[2021-06-23] MEDS: INSULIN (LEVEMIR) 100 UNITS/ML UNITS SQ SCH (21:20)
[2021-06-24] MEDS: ACETAMINOPHEN 325 MG TABLET (FP) PO SCH ×3 (06:40→21:49)
[2021-06-24] MEDS: LEVOTHYROXINE NA 25 MCG TABLET (FP) PO SCH (06:40)
[2021-06-24] MEDS: GABAPENTIN 300 MG CAPSULE PO SCH ×3 (06:40→21:47)
[2021-06-24] MEDS: oxyCODONE HCL 5 MG TABLET PO SCH ×3 (06:40→21:47)
[2021-06-24] MEDS: INSULIN SLIDING SCALE (NOVOLOG) 1 VIAL SQ SCH ×4 (07:57→21:51)
[2021-06-24] MEDS: MIDODRINE HCL 5 MG TABLET PO SCH (10:05)
[2021-06-24] MEDS ORDERED: INSULIN (NOVOLOG) ASPART 100 UNITS/ML 10ML VIAL ONE (12:21)
[2021-06-24] MEDS: CALCIUM ACETATE 667 MG CAPSULE (FP) PO SCH ×3 (13:16→18:49)
[2021-06-24] MEDS ORDERED: SODIUM CHLORIDE 250 ML IV PRN (15:58)
[2021-06-24] MEDS ORDERED: IRON SUCROSE INJECTION 100 MG in SODIUM CHLORIDE 95 ML IVPB ONE (16:00)
[2021-06-24] MEDS ORDERED: EPOETIN ALFA-EPBX 20,000 UNIT/ML VIAL IVPUSH ONE (16:00)
[2021-06-24 16:32] LABS: HEMATOCRIT 24.2 % (35.4-49); HEMOGLOBIN 7.6 GM/dL (11.7-16.9); MCH 28.5 pg (25.7-33.7); MCHC 31.4 g/dl (32.0-35.9); MEAN CELL VOLUME 90.7 fl (80-96); MEAN PLT VOLUME 7.7 fl (7.5-11.1); PLATELET COUNT 211 10^3/uL (134-434); RBC 2.67 M/mm3 (4.00-5.60); RDW 16.7 % (11.9-15.9); WHITE BLOOD COUNT 6.5 K/mm3 (4.0-10.0)
[2021-06-24] MEDS: BACITRACIN 15 GM TUBE TOPICAL OINTMENT TP SCH (18:45)
[2021-06-24] MEDS: CLOPIDOGREL BISULFATE 75 MG TABLET (FP) PO SCH (18:48)
[2021-06-24] MEDS: ATORVASTATIN CA 40 MG TABLET (FP) PO SCH (21:47)
[2021-06-24] MEDS: INSULIN (LEVEMIR) 100 UNITS/ML UNITS SQ SCH (21:50)
[2021-06-25] MEDS: ACETAMINOPHEN 325 MG TABLET (FP) PO SCH ×3 (06:10→23:59)
[2021-06-25] MEDS: GABAPENTIN 300 MG CAPSULE PO SCH ×2 (06:10→13:21)
[2021-06-25] MEDS: oxyCODONE HCL 5 MG TABLET PO SCH ×2 (06:11→13:22)
[2021-06-25] MEDS: LEVOTHYROXINE NA 25 MCG TABLET (FP) PO SCH (06:13)
[2021-06-25] MEDS: INSULIN SLIDING SCALE (NOVOLOG) 1 VIAL SQ SCH ×3 (06:13→18:10)
[2021-06-25] MEDS: CALCIUM ACETATE 667 MG CAPSULE (FP) PO SCH ×3 (10:56→18:12)
[2021-06-25] MEDS: CLOPIDOGREL BISULFATE 75 MG TABLET (FP) PO SCH (10:56)
[2021-06-25] MEDS: BACITRACIN 15 GM TUBE TOPICAL OINTMENT TP SCH (10:56)
[2021-06-26] MEDS: ATORVASTATIN CA 40 MG TABLET (FP) PO SCH ×2 (00:01→22:44)
[2021-06-26] MEDS: GABAPENTIN 300 MG CAPSULE PO SCH ×4 (00:02→22:44)
[2021-06-26] MEDS: INSULIN SLIDING SCALE (NOVOLOG) 1 VIAL SQ SCH ×5 (00:06→22:49)
[2021-06-26] MEDS: INSULIN (LEVEMIR) 100 UNITS/ML UNITS SQ SCH ×2 (00:09→22:49)
[2021-06-26] MEDS: ACETAMINOPHEN 325 MG TABLET (FP) PO SCH ×3 (06:17→22:44)
[2021-06-26] MEDS: LEVOTHYROXINE NA 25 MCG TABLET (FP) PO SCH (06:18)
[2021-06-26] MEDS: oxyCODONE HCL 5 MG TABLET PO SCH ×4 (06:18→22:45)
[2021-06-26] MEDS: MIDODRINE HCL 5 MG TABLET PO SCH (10:54)
[2021-06-26] MEDS: CALCIUM ACETATE 667 MG CAPSULE (FP) PO SCH ×3 (10:54→17:18)
[2021-06-26] MEDS: BACITRACIN 15 GM TUBE TOPICAL OINTMENT TP SCH (10:56)
[2021-06-26] MEDS ORDERED: SODIUM CHLORIDE 250 ML IV PRN (11:47)
[2021-06-26] MEDS: CLOPIDOGREL BISULFATE 75 MG TABLET (FP) PO SCH (11:47)
[2021-06-26] MEDS ORDERED: EPOETIN ALFA-EPBX 20,000 UNIT/ML VIAL SQ ONE (12:00)
[2021-06-26] MEDS ORDERED: HEPARIN NA (PORCINE) 5,000 UNITS/ML 1ML VIAL IVPUSH ONE (12:00)
[2021-06-26] MEDS ORDERED: IRON SUCROSE INJECTION 100 MG in SODIUM CHLORIDE 95 ML IVPB ONE (12:30)
[2021-06-26 13:28] LABS: BASO % 0.4 % (0-2.0); EOS % 2.2 % (0-4.5); HEMATOCRIT 23.5 % (35.4-49); HEMOGLOBIN 7.2 GM/dL (11.7-16.9); LYMPH % 12.3 % (8-40); MCHC 30.6 g/dl (32.0-35.9); MEAN CELL VOLUME 91.6 fl (80-96); MEAN PLT VOLUME 8.5 fl (7.5-11.1); MONO % 7.5 % (3.8-10.2); NEUT % 77.6 % (42.8-82.8); PLATELET COUNT 164 10^3/uL (134-434); RBC 2.57 M/mm3 (4.00-5.60); RDW 16.9 % (11.9-15.9)
[2021-06-26 13:57] LABS: CALCIUM 7.9 mg/dL (8.5-10.1)
[2021-06-26 13:58] LABS: ALBUMIN 2.2 g/dl (3.4-5.0); BLOOD UREA NITROGEN 38.7 mg/dL (7-18)
[2021-06-26 14:02] LABS: BILIRUBIN,TOTAL 0.7 mg/dL (0.2-1); TOT PROT 6.6 g/dl (6.4-8.2)
[2021-06-27] MEDS: oxyCODONE HCL 5 MG TABLET PO SCH ×3 (05:20→23:06)
[2021-06-27] MEDS: ACETAMINOPHEN 325 MG TABLET (FP) PO SCH ×3 (05:21→23:08)
[2021-06-27] MEDS: GABAPENTIN 300 MG CAPSULE PO SCH ×3 (05:21→23:06)
[2021-06-27] MEDS: INSULIN SLIDING SCALE (NOVOLOG) 1 VIAL SQ SCH ×4 (06:37→23:09)
[2021-06-27] MEDS: LEVOTHYROXINE NA 25 MCG TABLET (FP) PO SCH (06:38)
[2021-06-27 08:34] LABS: HEMATOCRIT 23.5 % (35.4-49); HEMOGLOBIN 7.3 GM/dL (11.7-16.9); MCH 28.3 pg (25.7-33.7); MEAN CELL VOLUME 91.3 fl (80-96); MEAN PLT VOLUME 8.2 fl (7.5-11.1); PLATELET COUNT 150 10^3/uL (134-434); RBC 2.57 M/mm3 (4.00-5.60); RDW 16.9 % (11.9-15.9); WHITE BLOOD COUNT 4.9 K/mm3 (4.0-10.0)
[2021-06-27] MEDS: CALCIUM ACETATE 667 MG CAPSULE (FP) PO SCH ×3 (10:00→18:04)
[2021-06-27] MEDS: BACITRACIN 15 GM TUBE TOPICAL OINTMENT TP SCH ×2 (10:00→13:47)
[2021-06-27] MEDS: ATORVASTATIN CA 40 MG TABLET (FP) PO SCH (23:09)
[2021-06-27] MEDS: INSULIN (LEVEMIR) 100 UNITS/ML UNITS SQ SCH (23:10)
[2021-06-28] MEDS: LEVOTHYROXINE NA 25 MCG TABLET (FP) PO SCH (06:16)
[2021-06-28] MEDS: GABAPENTIN 300 MG CAPSULE PO SCH ×3 (06:16→21:48)
[2021-06-28] MEDS: ACETAMINOPHEN 325 MG TABLET (FP) PO SCH ×3 (06:16→21:49)
[2021-06-28] MEDS: oxyCODONE HCL 5 MG TABLET PO SCH ×3 (06:17→21:50)
[2021-06-28] MEDS: INSULIN SLIDING SCALE (NOVOLOG) 1 VIAL SQ SCH ×4 (06:18→21:50)
[2021-06-28] MEDS: CALCIUM ACETATE 667 MG CAPSULE (FP) PO SCH ×3 (10:34→17:58)
[2021-06-28] MEDS: BACITRACIN 15 GM TUBE TOPICAL OINTMENT TP SCH (15:56)
[2021-06-28] MEDS: ATORVASTATIN CA 40 MG TABLET (FP) PO SCH (21:48)
[2021-06-28] MEDS: INSULIN (LEVEMIR) 100 UNITS/ML UNITS SQ SCH (21:51)
[2021-06-29] MEDS: LEVOTHYROXINE NA 25 MCG TABLET (FP) PO SCH (05:59)
[2021-06-29] MEDS: oxyCODONE HCL 5 MG TABLET PO SCH ×2 (06:00→23:16)
[2021-06-29] MEDS: ACETAMINOPHEN 325 MG TABLET (FP) PO SCH ×3 (06:00→23:15)
[2021-06-29] MEDS: GABAPENTIN 300 MG CAPSULE PO SCH ×3 (06:00→23:14)
[2021-06-29] MEDS: INSULIN SLIDING SCALE (NOVOLOG) 1 VIAL SQ SCH ×3 (06:01→23:14)
[2021-06-29] MEDS ORDERED: SODIUM CHLORIDE 250 ML IV PRN (11:07)
[2021-06-29] MEDS ORDERED: EPOETIN ALFA-EPBX 20,000 UNIT/ML VIAL IVPUSH ONE (11:15)
[2021-06-29 11:49] LABS: HEMATOCRIT 23.7 % (35.4-49); HEMOGLOBIN 7.5 GM/dL (11.7-16.9); MCH 28.5 pg (25.7-33.7); MCHC 31.7 g/dl (32.0-35.9); MEAN PLT VOLUME 8.2 fl (7.5-11.1); PLATELET COUNT 150 10^3/uL (134-434); RBC 2.64 M/mm3 (4.00-5.60); RDW 17.2 % (11.9-15.9); WHITE BLOOD COUNT 6.3 K/mm3 (4.0-10.0)
[2021-06-29 12:12] LABS: CALCIUM 7.8 mg/dL (8.5-10.1)
[2021-06-29 12:13] LABS: ALBUMIN 2.4 g/dl (3.4-5.0); BLOOD UREA NITROGEN 49.7 mg/dL (7-18)
[2021-06-29 12:16] LABS: CREATININE 7.1 mg/dL (0.55-1.3)
[2021-06-29 12:18] LABS: BILIRUBIN,TOTAL 0.3 mg/dL (0.2-1); TOT PROT 7.1 g/dl (6.4-8.2)
[2021-06-29] MEDS: CALCIUM ACETATE 667 MG CAPSULE (FP) PO SCH ×2 (18:39→18:55)
[2021-06-29] MEDS: MIDODRINE HCL 5 MG TABLET PO SCH (18:51)
[2021-06-29] MEDS: BACITRACIN 15 GM TUBE TOPICAL OINTMENT TP SCH (18:52)
[2021-06-29] MEDS: ATORVASTATIN CA 40 MG TABLET (FP) PO SCH (23:14)
[2021-06-29] MEDS: INSULIN (LEVEMIR) 100 UNITS/ML UNITS SQ SCH (23:15)
[2021-06-30] MEDS ORDERED: LIDOCAINE HCL 2% (50ML VIAL) INF ONE ×2
[2021-06-30] MEDS: INSULIN SLIDING SCALE (NOVOLOG) 1 VIAL SQ SCH ×4 (06:28→21:24)
[2021-06-30] MEDS: oxyCODONE HCL 5 MG TABLET PO SCH ×3 (06:29→21:25)
[2021-06-30] MEDS: GABAPENTIN 300 MG CAPSULE PO SCH ×3 (06:29→21:24)
[2021-06-30] MEDS: ACETAMINOPHEN 325 MG TABLET (FP) PO SCH ×3 (06:29→21:25)
[2021-06-30] MEDS: LEVOTHYROXINE NA 25 MCG TABLET (FP) PO SCH (06:31)
[2021-06-30] MEDS ORDERED: oxyCODONE HCL 5 MG TABLET PO PRN (10:15)
[2021-06-30] MEDS ORDERED: ONDANSETRON 4 MG/2 ML VIAL IVPUSH PRN (10:25)
[2021-06-30] MEDS ORDERED: TIZANIDINE HCL 2 MG TABLET PO PRN (10:33)
[2021-06-30] MEDS: CALCIUM ACETATE 667 MG CAPSULE (FP) PO SCH ×3 (11:12→16:52)
[2021-06-30] MEDS: BACITRACIN 15 GM TUBE TOPICAL OINTMENT TP SCH (11:13)
[2021-06-30] MEDS: INSULIN (LEVEMIR) 100 UNITS/ML UNITS SQ SCH (21:23)
[2021-06-30] MEDS: ATORVASTATIN CA 40 MG TABLET (FP) PO SCH (21:25)
[2021-06-30] MEDS ORDERED: PT OWN MED DRAWER 7, Y5N ONE (21:48)
[2021-07-01] MEDS: LEVOTHYROXINE NA 25 MCG TABLET (FP) PO SCH (06:41)
[2021-07-01] MEDS: INSULIN SLIDING SCALE (NOVOLOG) 1 VIAL SQ SCH ×4 (06:41→22:12)
[2021-07-01] MEDS: oxyCODONE HCL 5 MG TABLET PO SCH ×3 (06:42→22:12)
[2021-07-01] MEDS: GABAPENTIN 300 MG CAPSULE PO SCH ×3 (06:42→22:11)
[2021-07-01] MEDS: ACETAMINOPHEN 325 MG TABLET (FP) PO SCH ×3 (06:42→22:11)
[2021-07-01] MEDS: CALCIUM ACETATE 667 MG CAPSULE (FP) PO SCH ×3 (10:10→17:38)
[2021-07-01] MEDS: MIDODRINE HCL 5 MG TABLET PO SCH (10:10)
[2021-07-01] MEDS ORDERED: SODIUM CHLORIDE 250 ML IV PRN (12:00)
[2021-07-01] MEDS ORDERED: EPOETIN ALFA-EPBX 20,000 UNIT/ML VIAL SQ ONE (12:00)
[2021-07-01 14:08] LABS: BLOOD UREA NITROGEN 42.9 mg/dL (7-18); CALCIUM 7.8 mg/dL (8.5-10.1)
[2021-07-01 14:12] LABS: CREATININE 6.4 mg/dL (0.55-1.3)
[2021-07-01] MEDS: INSULIN (LEVEMIR) 100 UNITS/ML UNITS SQ SCH (22:13)
[2021-07-01] MEDS: ATORVASTATIN CA 40 MG TABLET (FP) PO SCH (22:13)
[2021-07-02] MEDS: ACETAMINOPHEN 325 MG TABLET (FP) PO SCH ×3 (06:10→22:55)
[2021-07-02] MEDS: GABAPENTIN 300 MG CAPSULE PO SCH ×3 (06:10→22:54)
[2021-07-02] MEDS: LEVOTHYROXINE NA 25 MCG TABLET (FP) PO SCH (06:10)
[2021-07-02] MEDS: oxyCODONE HCL 5 MG TABLET PO SCH ×3 (06:11→22:54)
[2021-07-02] MEDS: INSULIN SLIDING SCALE (NOVOLOG) 1 VIAL SQ SCH ×4 (06:45→22:53)
[2021-07-02] MEDS: CALCIUM ACETATE 667 MG CAPSULE (FP) PO SCH ×3 (09:20→17:11)
[2021-07-02] MEDS ORDERED: INSULIN (NOVOLOG) ASPART 100 UNITS/ML 10ML VIAL ONE (17:00)
[2021-07-02] MEDS: INSULIN (LEVEMIR) 100 UNITS/ML UNITS SQ SCH (22:53)
[2021-07-02] MEDS: ATORVASTATIN CA 40 MG TABLET (FP) PO SCH (22:54)
[2021-07-03] MEDS: ACETAMINOPHEN 325 MG TABLET (FP) PO SCH ×3 (05:58→22:45)
[2021-07-03] MEDS: GABAPENTIN 300 MG CAPSULE PO SCH ×3 (05:58→22:45)
[2021-07-03] MEDS: oxyCODONE HCL 5 MG TABLET PO SCH ×3 (05:59→22:46)
[2021-07-03] MEDS: LEVOTHYROXINE NA 25 MCG TABLET (FP) PO SCH (06:05)
[2021-07-03] MEDS: INSULIN SLIDING SCALE (NOVOLOG) 1 VIAL SQ SCH ×4 (06:05→22:50)
[2021-07-03] MEDS ORDERED: SODIUM CHLORIDE 250 ML IV PRN (09:08)
[2021-07-03] MEDS: MIDODRINE HCL 5 MG TABLET PO SCH (09:09)
[2021-07-03] MEDS ORDERED: HEPARIN NA (PORCINE) 5,000 UNITS/ML 1ML VIAL IVPUSH ONE (10:30)
[2021-07-03] MEDS: HEPARIN NA (PORCINE) 5,000 UNITS/ML 1ML VIAL IVPUSH SCH ×3 (10:55→13:52)
[2021-07-03] MEDS ORDERED: EPOETIN ALFA-EPBX 20,000 UNIT/ML VIAL IVPUSH ONE (11:00)
[2021-07-03 11:59] LABS: HEMATOCRIT 21.7 % (35.4-49); MCH 28.5 pg (25.7-33.7); MCHC 31.5 g/dl (32.0-35.9); MEAN CELL VOLUME 90.3 fl (80-96); PLATELET COUNT 157 10^3/uL (134-434); RDW 17.2 % (11.9-15.9); WHITE BLOOD COUNT 6.9 K/mm3 (4.0-10.0)
[2021-07-03 12:10] LABS: HEMOGLOBIN 6.8 GM/dL (11.7-16.9)
[2021-07-03 12:19] LABS: CALCIUM 8.5 mg/dL (8.5-10.1)
[2021-07-03 12:20] LABS: ALBUMIN 2.2 g/dl (3.4-5.0)
[2021-07-03 12:23] LABS: CREATININE 6.2 mg/dL (0.55-1.3)
[2021-07-03 12:24] LABS: BILIRUBIN,TOTAL 0.4 mg/dL (0.2-1); TOT PROT 6.8 g/dl (6.4-8.2)
[2021-07-03] MEDS: CLOPIDOGREL BISULFATE 75 MG TABLET (FP) PO SCH (12:31)
[2021-07-03] MEDS: CALCIUM ACETATE 667 MG CAPSULE (FP) PO SCH ×3 (12:31→17:30)
[2021-07-03] MEDS: ATORVASTATIN CA 40 MG TABLET (FP) PO SCH (22:46)
[2021-07-03] MEDS: INSULIN (LEVEMIR) 100 UNITS/ML UNITS SQ SCH (22:50)
[2021-07-04] MEDS: oxyCODONE HCL 5 MG TABLET PO SCH ×3 (05:35→21:52)
[2021-07-04] MEDS: GABAPENTIN 300 MG CAPSULE PO SCH ×3 (05:35→21:52)
[2021-07-04] MEDS: ACETAMINOPHEN 325 MG TABLET (FP) PO SCH ×3 (05:36→21:53)
[2021-07-04] MEDS: LEVOTHYROXINE NA 25 MCG TABLET (FP) PO SCH (06:13)
[2021-07-04] MEDS: INSULIN SLIDING SCALE (NOVOLOG) 1 VIAL SQ SCH ×4 (06:13→21:51)
[2021-07-04] MEDS: CALCIUM ACETATE 667 MG CAPSULE (FP) PO SCH ×3 (09:00→16:55)
[2021-07-04] MEDS ORDERED: SODIUM CHLORIDE 250 ML IV PRN (09:34)
[2021-07-04] MEDS: CLOPIDOGREL BISULFATE 75 MG TABLET (FP) PO SCH (10:43)
[2021-07-04] MEDS: INSULIN (LEVEMIR) 100 UNITS/ML UNITS SQ SCH (21:51)
[2021-07-04] MEDS: ATORVASTATIN CA 40 MG TABLET (FP) PO SCH (21:52)
[2021-07-05] MEDS: oxyCODONE HCL 5 MG TABLET PO SCH ×3 (06:41→23:00)
[2021-07-05] MEDS: LEVOTHYROXINE NA 25 MCG TABLET (FP) PO SCH (06:41)
[2021-07-05] MEDS: ACETAMINOPHEN 325 MG TABLET (FP) PO SCH ×3 (06:42→23:00)
[2021-07-05] MEDS: INSULIN SLIDING SCALE (NOVOLOG) 1 VIAL SQ SCH ×4 (06:42→23:14)
[2021-07-05] MEDS: GABAPENTIN 300 MG CAPSULE PO SCH ×3 (06:42→23:00)
[2021-07-05] MEDS: CALCIUM ACETATE 667 MG CAPSULE (FP) PO SCH ×3 (09:45→17:08)
[2021-07-05] MEDS: CLOPIDOGREL BISULFATE 75 MG TABLET (FP) PO SCH (09:46)
[2021-07-05 12:00] LABS: BASO % 0.4 % (0-2.0); EOS % 8.1 % (0-4.5); HEMATOCRIT 26.8 % (35.4-49); HEMOGLOBIN 8.2 GM/dL (11.7-16.9); LYMPH % 18.9 % (8-40); MCH 27.5 pg (25.7-33.7); MCHC 30.8 g/dl (32.0-35.9); MEAN CELL VOLUME 89.3 fl (80-96); MEAN PLT VOLUME 8.2 fl (7.5-11.1); MONO % 9.6 % (3.8-10.2); PLATELET COUNT 173 10^3/uL (134-434); RDW 17.1 % (11.9-15.9); WHITE BLOOD COUNT 5.1 K/mm3 (4.0-10.0)
[2021-07-05 12:19] LABS: ALBUMIN 2.4 g/dl (3.4-5.0); CALCIUM 8.2 mg/dL (8.5-10.1)
[2021-07-05 12:22] LABS: CREATININE 6.1 mg/dL (0.55-1.3)
[2021-07-05 12:24] LABS: BILIRUBIN,TOTAL 0.6 mg/dL (0.2-1); TOT PROT 7.1 g/dl (6.4-8.2)
[2021-07-05] MEDS ORDERED: SODIUM CHLORIDE 250 ML IV PRN (18:32)
[2021-07-05] MEDS: ATORVASTATIN CA 40 MG TABLET (FP) PO SCH (23:00)
[2021-07-05] MEDS: INSULIN (LEVEMIR) 100 UNITS/ML UNITS SQ SCH (23:14)
[2021-07-06] MEDS: oxyCODONE HCL 5 MG TABLET PO SCH ×3 (06:34→21:48)
[2021-07-06] MEDS: GABAPENTIN 300 MG CAPSULE PO SCH ×3 (06:34→21:48)
[2021-07-06] MEDS: ACETAMINOPHEN 325 MG TABLET (FP) PO SCH ×3 (06:35→21:48)
[2021-07-06] MEDS: INSULIN SLIDING SCALE (NOVOLOG) 1 VIAL SQ SCH ×4 (06:36→21:52)
[2021-07-06] MEDS: LEVOTHYROXINE NA 25 MCG TABLET (FP) PO SCH (06:36)
[2021-07-06 08:26] LABS: HEMATOCRIT 26.2 % (35.4-49); HEMOGLOBIN 8.2 GM/dL (11.7-16.9); MCH 27.8 pg (25.7-33.7); MCHC 31.2 g/dl (32.0-35.9); MEAN CELL VOLUME 88.9 fl (80-96); MEAN PLT VOLUME 7.8 fl (7.5-11.1); PLATELET COUNT 165 10^3/uL (134-434); RBC 2.94 M/mm3 (4.00-5.60); RDW 17.3 % (11.9-15.9); WHITE BLOOD COUNT 6.2 K/mm3 (4.0-10.0)
[2021-07-06] MEDS ORDERED: EPOETIN ALFA-EPBX 20,000 UNIT/ML VIAL IVPUSH ONE (09:00)
[2021-07-06] MEDS: CALCIUM ACETATE 667 MG CAPSULE (FP) PO SCH ×3 (12:29→16:36)
[2021-07-06] MEDS: CLOPIDOGREL BISULFATE 75 MG TABLET (FP) PO SCH (12:30)
[2021-07-06] MEDS: MIDODRINE HCL 5 MG TABLET PO SCH (14:23)
[2021-07-06] MEDS: ATORVASTATIN CA 40 MG TABLET (FP) PO SCH (21:48)
[2021-07-06] MEDS: INSULIN (LEVEMIR) 100 UNITS/ML UNITS SQ SCH (21:51)
[2021-07-07] MEDS: oxyCODONE HCL 5 MG TABLET PO SCH (06:37)
[2021-07-07] MEDS: LEVOTHYROXINE NA 25 MCG TABLET (FP) PO SCH (06:37)
[2021-07-07] MEDS: ACETAMINOPHEN 325 MG TABLET (FP) PO SCH ×3 (06:37→23:13)
[2021-07-07] MEDS: GABAPENTIN 300 MG CAPSULE PO SCH ×3 (06:38→23:13)
[2021-07-07] MEDS: INSULIN SLIDING SCALE (NOVOLOG) 1 VIAL SQ SCH ×4 (06:40→23:19)
[2021-07-07] MEDS: CALCIUM ACETATE 667 MG CAPSULE (FP) PO SCH ×3 (10:16→18:33)
[2021-07-07] MEDS: CLOPIDOGREL BISULFATE 75 MG TABLET (FP) PO SCH (10:16)
[2021-07-07] MEDS: oxyCODONE HCL 5 MG TABLET PO PRN ×2 (15:03→23:16)
[2021-07-07] MEDS: ATORVASTATIN CA 40 MG TABLET (FP) PO SCH (23:13)
[2021-07-07] MEDS: INSULIN (LEVEMIR) 100 UNITS/ML UNITS SQ SCH (23:17)
[2021-07-08] MEDS: GABAPENTIN 300 MG CAPSULE PO SCH ×4 (07:12→22:56)
[2021-07-08] MEDS: ACETAMINOPHEN 325 MG TABLET (FP) PO SCH ×4 (07:12→22:55)
[2021-07-08] MEDS: INSULIN SLIDING SCALE (NOVOLOG) 1 VIAL SQ SCH ×5 (07:13→23:00)
[2021-07-08] MEDS: LEVOTHYROXINE NA 25 MCG TABLET (FP) PO SCH (07:13)
[2021-07-08] MEDS: oxyCODONE HCL 5 MG TABLET PO PRN ×2 (07:20→15:55)
[2021-07-08] MEDS: CALCIUM ACETATE 667 MG CAPSULE (FP) PO SCH ×4 (08:21→17:28)
[2021-07-08] MEDS: MIDODRINE HCL 5 MG TABLET PO SCH (08:21)
[2021-07-08 10:54] LABS: BASO % 0.4 % (0-2.0); EOS % 7.6 % (0-4.5); HEMATOCRIT 25.1 % (35.4-49); HEMOGLOBIN 7.6 GM/dL (11.7-16.9); LYMPH % 17.3 % (8-40); MCH 27.7 pg (25.7-33.7); MCHC 30.4 g/dl (32.0-35.9); MEAN CELL VOLUME 90.9 fl (80-96); MEAN PLT VOLUME 8.5 fl (7.5-11.1); MONO % 8.3 % (3.8-10.2); NEUT % 66.4 % (42.8-82.8); PLATELET COUNT 169 10^3/uL (134-434); RBC 2.76 M/mm3 (4.00-5.60); RDW 17.3 % (11.9-15.9); WHITE BLOOD COUNT 6.4 K/mm3 (4.0-10.0)
[2021-07-08] MEDS ORDERED: EPOETIN ALFA-EPBX 20,000 UNIT/ML VIAL IVPUSH ONE (11:00)
[2021-07-08] MEDS ORDERED: SODIUM CHLORIDE 250 ML IV PRN (11:00)
[2021-07-08] MEDS: CLOPIDOGREL BISULFATE 75 MG TABLET (FP) PO SCH ×2 (11:06→14:26)
[2021-07-08 11:25] LABS: ALBUMIN 2.2 g/dl (3.4-5.0); BLOOD UREA NITROGEN 43.7 mg/dL (7-18); CALCIUM 8.2 mg/dL (8.5-10.1); CREATININE 6.1 mg/dL (0.55-1.3)
[2021-07-08 11:26] LABS: BILIRUBIN,TOTAL 0.3 mg/dL (0.2-1); TOT PROT 6.8 g/dl (6.4-8.2)
[2021-07-08 14:03] VITALS: BMI 47.5
[2021-07-08] MEDS: ATORVASTATIN CA 40 MG TABLET (FP) PO SCH (22:56)
[2021-07-08] MEDS: INSULIN (LEVEMIR) 100 UNITS/ML UNITS SQ SCH (22:58)
[2021-07-09] MEDS: oxyCODONE HCL 5 MG TABLET PO PRN ×2 (01:17→21:32)
[2021-07-09] MEDS: ACETAMINOPHEN 325 MG TABLET (FP) PO SCH ×3 (05:19→21:26)
[2021-07-09] MEDS: GABAPENTIN 300 MG CAPSULE PO SCH ×3 (05:19→21:26)
[2021-07-09] MEDS: INSULIN SLIDING SCALE (NOVOLOG) 1 VIAL SQ SCH ×4 (06:30→21:33)
[2021-07-09] MEDS: LEVOTHYROXINE NA 25 MCG TABLET (FP) PO SCH (06:31)
[2021-07-09] MEDS: CLOPIDOGREL BISULFATE 75 MG TABLET (FP) PO SCH ×2 (10:29→17:48)
[2021-07-09] MEDS: CALCIUM ACETATE 667 MG CAPSULE (FP) PO SCH ×3 (10:30→17:46)
[2021-07-09] MEDS: ATORVASTATIN CA 40 MG TABLET (FP) PO SCH (21:26)
[2021-07-09] MEDS: INSULIN (LEVEMIR) 100 UNITS/ML UNITS SQ SCH (23:38)
[2021-07-10] MEDS: GABAPENTIN 300 MG CAPSULE PO SCH ×2 (05:46→14:36)
[2021-07-10] MEDS: ACETAMINOPHEN 325 MG TABLET (FP) PO SCH ×2 (05:46→14:36)
[2021-07-10] MEDS: INSULIN SLIDING SCALE (NOVOLOG) 1 VIAL SQ SCH ×2 (06:29→14:37)
[2021-07-10] MEDS: oxyCODONE HCL 5 MG TABLET PO PRN ×2 (06:32→14:37)
[2021-07-10] MEDS: LEVOTHYROXINE NA 25 MCG TABLET (FP) PO SCH (06:33)
[2021-07-10] MEDS: MIDODRINE HCL 5 MG TABLET PO SCH (09:39)
[2021-07-10] MEDS: CALCIUM ACETATE 667 MG CAPSULE (FP) PO SCH ×2 (09:39→13:28)
[2021-07-10] MEDS: CLOPIDOGREL BISULFATE 75 MG TABLET (FP) PO SCH (09:41)
[2021-07-10 10:38] LABS: HEMATOCRIT 25.7 % (35.4-49); HEMOGLOBIN 7.8 GM/dL (11.7-16.9); MCH 27.5 pg (25.7-33.7); MCHC 30.5 g/dl (32.0-35.9); MEAN CELL VOLUME 90.3 fl (80-96); MEAN PLT VOLUME 8.6 fl (7.5-11.1); PLATELET COUNT 178 10^3/uL (134-434); RBC 2.85 M/mm3 (4.00-5.60)
[2021-07-10] MEDS ORDERED: EPOETIN ALFA-EPBX 20,000 UNIT/ML VIAL IVPUSH ONE (11:00)
[2021-07-10] MEDS ORDERED: SODIUM CHLORIDE 250 ML IV PRN ×2 (11:01)
[2021-07-10 11:31] LABS: BLOOD UREA NITROGEN 32.4 mg/dL (7-18); CALCIUM 8.3 mg/dL (8.5-10.1)
[2021-07-10 11:52] VITALS: TEMP 97.9
[2021-07-10 14:08] VITALS: BP 166/99; PULSE 86
== END 2021-07-10 17:50 | disposition home health service (06) | DRG 305 ==
LOC: JER 12:46 → JERBED 15:03 → J8W 05-27 12:47 → J7W 06-13 19:13
PROVIDERS: ADMIT Family Medicine; ATTEND Family Medicine
PROC: 5A1D70Z Performance of Urinary Filtration, Intermittent, Less than 6 Hours Per Day (ICD-10-PCS; 2021-05-27)
PROC: 047Q3ZZ Dilation of Left Anterior Tibial Artery, Percutaneous Approach (ICD-10-PCS; 2021-06-04)
PROC: 047N3ZZ Dilation of Left Popliteal Artery, Percutaneous Approach (ICD-10-PCS; 2021-06-04)
PROC: B41DZZZ Fluoroscopy of Aorta and Bilateral Lower Extremity Arteries (ICD-10-PCS; 2021-06-04)
PROC: 047U3ZZ Dilation of Left Peroneal Artery, Percutaneous Approach (ICD-10-PCS; 2021-06-04)
PROC: 04CN3ZZ Extirpation of Matter from Left Popliteal Artery, Percutaneous Approach (ICD-10-PCS; principal; 2021-06-04 16:00)
PROC: 047N3DZ Dilation of Left Popliteal Artery with Intraluminal Device, Percutaneous Approach (ICD-10-PCS; 2021-06-15)
PROC: 5A1D70Z Performance of Urinary Filtration, Intermittent, Less than 6 Hours Per Day (ICD-10-PCS; 2021-06-22)
PROC: 5A1D70Z Performance of Urinary Filtration, Intermittent, Less than 6 Hours Per Day (ICD-10-PCS; 2021-06-29)
PROC: 0Y6N0Z9 Detachment at Left Foot, Partial 1st Ray, Open Approach (ICD-10-PCS; 2021-06-30)
PROC: 0Y6N0ZB Detachment at Left Foot, Partial 2nd Ray, Open Approach (ICD-10-PCS; 2021-06-30)
PROC: 0Y6N0ZC Detachment at Left Foot, Partial 3rd Ray, Open Approach (ICD-10-PCS; 2021-06-30)
PROC: 0Y6N0ZD Detachment at Left Foot, Partial 4th Ray, Open Approach (ICD-10-PCS; 2021-06-30)
PROC: 0Y6N0ZF Detachment at Left Foot, Partial 5th Ray, Open Approach (ICD-10-PCS; 2021-06-30)
PROC: 0QBM0ZX Excision of Left Tarsal, Open Approach, Diagnostic (ICD-10-PCS; 2021-06-30)
PROC: 5A1D70Z Performance of Urinary Filtration, Intermittent, Less than 6 Hours Per Day (ICD-10-PCS; 2021-07-04)
PROC: 5A1D70Z Performance of Urinary Filtration, Intermittent, Less than 6 Hours Per Day (ICD-10-PCS; 2021-07-06)
PROC: 5A1D70Z Performance of Urinary Filtration, Intermittent, Less than 6 Hours Per Day (ICD-10-PCS; 2021-07-10)
DX: L03.116 Cellulitis of left lower limb (principal); E11.42 Type 2 diabetes mellitus with diabetic polyneuropathy; A52.16 Charcot's arthropathy (tabetic); E78.5 Hyperlipidemia, unspecified; K76.0 Fatty (change of) liver, not elsewhere classified; E03.9 Hypothyroidism, unspecified; F41.9 Anxiety disorder, unspecified; E66.01 Morbid (severe) obesity due to excess calories; Z68.42 Body mass index [BMI] 45.0-49.9, adult; G47.30 Sleep apnea, unspecified; I13.2 Hypertensive heart and chronic kidney disease with heart failure and with stage 5 chronic kidney disease, or end stage renal disease; E11.22 Type 2 diabetes mellitus with diabetic chronic kidney disease; E11.52 Type 2 diabetes mellitus with diabetic peripheral angiopathy with gangrene; I96 Gangrene, not elsewhere classified; N18.6 End stage renal disease; I50.32 Chronic diastolic (congestive) heart failure; M72.2 Plantar fascial fibromatosis; E11.621 Type 2 diabetes mellitus with foot ulcer; L97.428 Non-pressure chronic ulcer of left heel and midfoot with other specified severity; E11.628 Type 2 diabetes mellitus with other skin complications; E11.65 Type 2 diabetes mellitus with hyperglycemia; D63.1 Anemia in chronic kidney disease; L08.9 Local infection of the skin and subcutaneous tissue, unspecified; G89.29 Other chronic pain; D63.8 Anemia in other chronic diseases classified elsewhere; Z89.439 Acquired absence of unspecified foot; Z99.2 Dependence on renal dialysis
CPT/HCPCS: 10060; 36415; 36430; 36511; 73610-TC-LT-FY; 73630-TC-LT; 73718-TC-LT; 76000-TC-FY; 80048; 80053; 82550; 82947; 82962; 83540; 83550; 83735; 84100; 84443; 84484; 85025; 85027; 85610; 85730; 86803; 86850; 86900; 86901; 86922; 87040; 87045; 87046; 87070; 87075; 87205; 87324; 87340; 87449; 88304-TC; 88305-TC; 88311-TC; 93005; 93010; 93926-TC; 93971-TC; 93990-TC; 94760; 97116-GP; 97162-GP; 97163-GP; 99285-25; C9803; G0480; J1644; J1756; P9038; P9047; P9058; Q5106; U0003; U0005

== ENCOUNTER 2021-07-17 00:14 | Inpatient (IN) | payer OTHER ==
[2021-07-17] MEDS ORDERED: PANTOPRAZOLE SODIUM 40 MG VIAL IVPUSH ONE (00:48)
[2021-07-17] MEDS ORDERED: oxyCODONE HCL 5 MG TABLET PO ONE (00:49)
[2021-07-17] MEDS ORDERED: oxyCODONE HCL 5 MG TABLET ONE (00:54)
[2021-07-17] MEDS ORDERED: PANTOPRAZOLE SODIUM 40 MG VIAL ONE ×2 (00:54→09:47)
[2021-07-17 01:34] LABS: BASO % 1.2 % (0-2.0); EOS % 5.3 % (0-4.5); HEMATOCRIT 25.5 % (35.4-49); HEMOGLOBIN 7.6 GM/dL (11.7-16.9); LYMPH % 18.6 % (8-40); MCH 27.2 pg (25.7-33.7); MCHC 29.6 g/dl (32.0-35.9); MEAN CELL VOLUME 91.7 fl (80-96); MEAN PLT VOLUME 8.6 fl (7.5-11.1); MONO % 7.8 % (3.8-10.2); NEUT % 67.1 % (42.8-82.8); PLATELET COUNT 174 10^3/uL (134-434); RBC 2.78 M/mm3 (4.00-5.60); RDW 18.1 % (11.9-15.9)
[2021-07-17 01:54] LABS: CALCIUM 8.8 mg/dL (8.5-10.1)
[2021-07-17 01:55] LABS: ALBUMIN 2.4 g/dl (3.4-5.0); BLOOD UREA NITROGEN 36.8 mg/dL (7-18)
[2021-07-17 01:56] LABS: MAGNESIUM 1.9 mg/dL (1.8-2.4)
[2021-07-17 01:58] LABS: CREATININE 5.4 mg/dL (0.55-1.3)
[2021-07-17 01:59] LABS: INR 1.39 (0.83-1.09)
[2021-07-17 02:00] LABS: BILIRUBIN,TOTAL 0.3 mg/dL (0.2-1); TOT PROT 7.1 g/dl (6.4-8.2)
[2021-07-17 02:02] LABS: ACTIVATED PTT 36.7 SECONDS (25.2-36.5)
[2021-07-17] MEDS ORDERED: ALBUTEROL SO4 2.5/IPRATROPIUM 0.5 INH SOL 3 ML VIAL.NEB. NEB ONE (04:42)
[2021-07-17] MEDS ORDERED: POLYETHYLENE GLYCOL (HEALTHYLAX) 3350 17 GM PACKET PO PRN (06:43)
[2021-07-17] MEDS ORDERED: ACETAMINOPHEN 325 MG TABLET (FP) PO PRN (06:43)
[2021-07-17] MEDS ORDERED: GABAPENTIN 100 MG CAPSULE ONE (09:48)
[2021-07-17] MEDS: GABAPENTIN 300 MG CAPSULE PO SCH ×3 (09:55→21:11)
[2021-07-17] MEDS ORDERED: PANTOPRAZOLE SODIUM 40 MG VIAL IVPUSH SCH (10:00)
[2021-07-17] MEDS: CALCIUM ACETATE 667 MG CAPSULE (FP) PO SCH ×2 (11:16→16:39)
[2021-07-17 12:03] LABS: BASO % 0.5 % (0-2.0); EOS % 5.7 % (0-4.5); HEMATOCRIT 25.4 % (35.4-49); HEMOGLOBIN 7.7 GM/dL (11.7-16.9); LYMPH % 18.9 % (8-40); MCH 27.5 pg (25.7-33.7); MCHC 30.2 g/dl (32.0-35.9); MEAN PLT VOLUME 8.3 fl (7.5-11.1); MONO % 9.4 % (3.8-10.2); NEUT % 65.5 % (42.8-82.8); PLATELET COUNT 168 10^3/uL (134-434); RBC 2.79 M/mm3 (4.00-5.60); RDW 17.6 % (11.9-15.9); WHITE BLOOD COUNT 4.9 K/mm3 (4.0-10.0)
[2021-07-17] MEDS: oxyCODONE HCL 5 MG TABLET PO SCH ×2 (13:39→21:10)
[2021-07-17] MEDS: ACETAMINOPHEN 325 MG TABLET (FP) PO SCH ×2 (13:42→21:11)
[2021-07-17] MEDS ORDERED: SODIUM CHLORIDE 250 ML IV PRN ×2 (14:54→18:17)
[2021-07-17] MEDS: INSULIN (NOVOLOG) ASPART 100 UNITS/ML 10ML VIAL SQ SCH ×2 (16:39→21:15)
[2021-07-17] MEDS ORDERED: EPOETIN ALFA-EPBX 20,000 UNIT/ML VIAL IVPUSH ONE (18:30)
[2021-07-17] MEDS: ATORVASTATIN CA 40 MG TABLET (FP) PO SCH (21:11)
[2021-07-17] MEDS: POLYETHYLENE GLYCOL (HEALTHYLAX) 3350 17 GM PACKET PO SCH (21:15)
[2021-07-17] MEDS ORDERED: POLYETHYLENE GLYCOL (HEALTHYLAX) 3350 17 GM PACKET PO SCH (22:00)
[2021-07-18] MEDS: POLYETHYLENE GLYCOL (HEALTHYLAX) 3350 17 GM PACKET PO SCH ×4 (05:42→21:28)
[2021-07-18] MEDS: oxyCODONE HCL 5 MG TABLET PO SCH ×3 (05:43→21:27)
[2021-07-18] MEDS: ACETAMINOPHEN 325 MG TABLET (FP) PO SCH ×3 (05:45→21:27)
[2021-07-18] MEDS: GABAPENTIN 300 MG CAPSULE PO SCH ×3 (05:45→21:19)
[2021-07-18] MEDS: INSULIN (NOVOLOG) ASPART 100 UNITS/ML 10ML VIAL SQ SCH ×4 (06:32→21:24)
[2021-07-18] MEDS: LEVOTHYROXINE NA 25 MCG TABLET (FP) PO SCH (06:32)
[2021-07-18] MEDS: CALCIUM ACETATE 667 MG CAPSULE (FP) PO SCH ×3 (09:55→16:29)
[2021-07-18 10:05] LABS: BASO % 0.6 % (0-2.0); EOS % 5.4 % (0-4.5); HEMATOCRIT 23.3 % (35.4-49); HEMOGLOBIN 7.2 GM/dL (11.7-16.9); MCH 28.3 pg (25.7-33.7); MCHC 30.9 g/dl (32.0-35.9); MEAN CELL VOLUME 91.7 fl (80-96); MEAN PLT VOLUME 8.5 fl (7.5-11.1); MONO % 9.2 % (3.8-10.2); NEUT % 65.8 % (42.8-82.8); PLATELET COUNT 168 10^3/uL (134-434); RBC 2.54 M/mm3 (4.00-5.60); RDW 17.2 % (11.9-15.9); WHITE BLOOD COUNT 4.6 K/mm3 (4.0-10.0)
[2021-07-18] MEDS: ATORVASTATIN CA 40 MG TABLET (FP) PO SCH (21:19)
[2021-07-19] MEDS: ACETAMINOPHEN 325 MG TABLET (FP) PO SCH ×3 (06:19→21:04)
[2021-07-19] MEDS: LEVOTHYROXINE NA 25 MCG TABLET (FP) PO SCH (06:19)
[2021-07-19] MEDS: GABAPENTIN 300 MG CAPSULE PO SCH ×3 (06:19→21:03)
[2021-07-19] MEDS: oxyCODONE HCL 5 MG TABLET PO SCH ×3 (06:19→21:03)
[2021-07-19] MEDS: POLYETHYLENE GLYCOL (HEALTHYLAX) 3350 17 GM PACKET PO SCH ×3 (06:21→21:00)
[2021-07-19] MEDS: INSULIN (NOVOLOG) ASPART 100 UNITS/ML 10ML VIAL SQ SCH ×4 (06:21→21:03)
[2021-07-19] MEDS: CALCIUM ACETATE 667 MG CAPSULE (FP) PO SCH ×3 (08:25→17:00)
[2021-07-19] MEDS: ATORVASTATIN CA 40 MG TABLET (FP) PO SCH (21:00)
[2021-07-20] MEDS: POLYETHYLENE GLYCOL (HEALTHYLAX) 3350 17 GM PACKET PO SCH ×3 (05:51→22:14)
[2021-07-20] MEDS: LEVOTHYROXINE NA 25 MCG TABLET (FP) PO SCH (05:59)
[2021-07-20] MEDS: GABAPENTIN 300 MG CAPSULE PO SCH ×3 (05:59→22:08)
[2021-07-20] MEDS: oxyCODONE HCL 5 MG TABLET PO SCH ×3 (05:59→22:08)
[2021-07-20] MEDS: INSULIN (NOVOLOG) ASPART 100 UNITS/ML 10ML VIAL SQ SCH ×4 (06:00→22:14)
[2021-07-20] MEDS: ACETAMINOPHEN 325 MG TABLET (FP) PO SCH ×3 (06:00→22:09)
[2021-07-20] MEDS ORDERED: SODIUM CHLORIDE 250 ML IV PRN (06:47)
[2021-07-20] MEDS: CALCIUM ACETATE 667 MG CAPSULE (FP) PO SCH ×3 (07:40→17:35)
[2021-07-20 08:58] LABS: HEMATOCRIT 23.6 % (35.4-49); HEMOGLOBIN 7.2 GM/dL (11.7-16.9); MCH 27.8 pg (25.7-33.7); MCHC 30.3 g/dl (32.0-35.9); MEAN CELL VOLUME 91.6 fl (80-96); MEAN PLT VOLUME 8.3 fl (7.5-11.1); PLATELET COUNT 170 10^3/uL (134-434); RBC 2.57 M/mm3 (4.00-5.60); RDW 18.1 % (11.9-15.9); WHITE BLOOD COUNT 5.1 K/mm3 (4.0-10.0)
[2021-07-20 09:43] LABS: CALCIUM 8.5 mg/dL (8.5-10.1)
[2021-07-20 09:44] LABS: BLOOD UREA NITROGEN 40.7 mg/dL (7-18)
[2021-07-20 09:47] LABS: CREATININE 5.8 mg/dL (0.55-1.3)
[2021-07-20 09:52] LABS: PHOSPHOROUS 6.2 mg/dL (2.5-4.9)
[2021-07-20] MEDS: ALBUMIN HUMAN 25% 12.5 GM/50 ML VIAL IV SCH ×2 (10:25→10:30)
[2021-07-20] MEDS ORDERED: BISACODYL 5 MG TABLET.DR (FP) PO ONE (16:00)
[2021-07-20] MEDS ORDERED: PEG 3350/NA SULF BICARB CL/KCL 4000 ML SOLN.RECON PO ONE (17:00)
[2021-07-20] MEDS: ATORVASTATIN CA 40 MG TABLET (FP) PO SCH (22:08)
[2021-07-21] MEDS: ACETAMINOPHEN 325 MG TABLET (FP) PO SCH ×3 (06:34→21:23)
[2021-07-21] MEDS: oxyCODONE HCL 5 MG TABLET PO SCH ×3 (06:34→21:19)
[2021-07-21] MEDS: LEVOTHYROXINE NA 25 MCG TABLET (FP) PO SCH (06:34)
[2021-07-21] MEDS: POLYETHYLENE GLYCOL (HEALTHYLAX) 3350 17 GM PACKET PO SCH ×3 (06:35→21:19)
[2021-07-21] MEDS: INSULIN (NOVOLOG) ASPART 100 UNITS/ML 10ML VIAL SQ SCH ×4 (06:42→21:23)
[2021-07-21] MEDS: GABAPENTIN 300 MG CAPSULE PO SCH ×3 (06:57→21:19)
[2021-07-21] MEDS: CALCIUM ACETATE 667 MG CAPSULE (FP) PO SCH ×3 (08:43→17:22)
[2021-07-21] MEDS ORDERED: TETRACAINE/BENZOCAINE/BUTAMBEN 20 GM SPR TP ONE (11:00)
[2021-07-21] MEDS: PANTOPRAZOLE 40 MG TABLET PO SCH (12:51)
[2021-07-21] MEDS: VITAMIN B COMP W-C 1 EA TABLET (NEPHRO-VITE) PO SCH (12:52)
[2021-07-21] MEDS: ZINC SULFATE 220 MG CAPSULE (FP) PO SCH (12:52)
[2021-07-21] MEDS ORDERED: BISACODYL 5 MG TABLET.DR (FP) PO ONE (16:00)
[2021-07-21] MEDS ORDERED: PEG 3350/NA SULF BICARB CL/KCL 4000 ML SOLN.RECON PO ONE (17:00)
[2021-07-21] MEDS: ATORVASTATIN CA 40 MG TABLET (FP) PO SCH (21:19)
[2021-07-22] MEDS: LEVOTHYROXINE NA 25 MCG TABLET (FP) PO SCH (06:10)
[2021-07-22] MEDS: GABAPENTIN 300 MG CAPSULE PO SCH ×3 (06:10→21:33)
[2021-07-22] MEDS: oxyCODONE HCL 5 MG TABLET PO SCH ×3 (06:10→21:35)
[2021-07-22] MEDS: ACETAMINOPHEN 325 MG TABLET (FP) PO SCH ×3 (06:11→21:36)
[2021-07-22] MEDS: POLYETHYLENE GLYCOL (HEALTHYLAX) 3350 17 GM PACKET PO SCH ×2 (06:24→21:34)
[2021-07-22] MEDS: INSULIN (NOVOLOG) ASPART 100 UNITS/ML 10ML VIAL SQ SCH ×4 (06:25→21:32)
[2021-07-22] MEDS ORDERED: EPOETIN ALFA-EPBX 20,000 UNIT/ML VIAL SQ ONE (07:00)
[2021-07-22] MEDS ORDERED: SODIUM CHLORIDE 250 ML IV PRN ×2 (07:00→18:06)
[2021-07-22] MEDS: CALCIUM ACETATE 667 MG CAPSULE (FP) PO SCH ×3 (07:24→16:57)
[2021-07-22 09:18] LABS: BASO % 0.4 % (0-2.0); EOS % 4.9 % (0-4.5); HEMATOCRIT 23.3 % (35.4-49); HEMOGLOBIN 7.2 GM/dL (11.7-16.9); MCH 28.1 pg (25.7-33.7); MCHC 30.7 g/dl (32.0-35.9); MEAN CELL VOLUME 91.6 fl (80-96); MEAN PLT VOLUME 8.5 fl (7.5-11.1); MONO % 8.7 % (3.8-10.2); PLATELET COUNT 172 10^3/uL (134-434); RBC 2.55 M/mm3 (4.00-5.60); WHITE BLOOD COUNT 5.4 K/mm3 (4.0-10.0)
[2021-07-22 09:50] LABS: BILIRUBIN,TOTAL 0.5 mg/dL (0.2-1)
[2021-07-22 09:52] LABS: CREATININE 5.7 mg/dL (0.55-1.3)
[2021-07-22 09:54] LABS: TOT PROT 6.9 g/dl (6.4-8.2)
[2021-07-22 09:57] LABS: CALCIUM 8.4 mg/dL (8.5-10.1)
[2021-07-22 09:58] LABS: ALBUMIN 2.5 g/dl (3.4-5.0); BLOOD UREA NITROGEN 34.7 mg/dL (7-18)
[2021-07-22] MEDS: VITAMIN B COMP W-C 1 EA TABLET (NEPHRO-VITE) PO SCH (10:13)
[2021-07-22] MEDS: PANTOPRAZOLE 40 MG TABLET PO SCH ×2 (10:14→21:34)
[2021-07-22] MEDS: ZINC SULFATE 220 MG CAPSULE (FP) PO SCH (10:14)
[2021-07-22] MEDS: ATORVASTATIN CA 40 MG TABLET (FP) PO SCH (21:33)
[2021-07-23] MEDS: GABAPENTIN 300 MG CAPSULE PO SCH ×3 (07:51→21:14)
[2021-07-23] MEDS: INSULIN (NOVOLOG) ASPART 100 UNITS/ML 10ML VIAL SQ SCH ×4 (07:52→21:15)
[2021-07-23] MEDS: LEVOTHYROXINE NA 25 MCG TABLET (FP) PO SCH (07:52)
[2021-07-23] MEDS: oxyCODONE HCL 5 MG TABLET PO SCH ×3 (07:52→21:12)
[2021-07-23] MEDS: ACETAMINOPHEN 325 MG TABLET (FP) PO SCH ×3 (07:55→21:13)
[2021-07-23] MEDS: CALCIUM ACETATE 667 MG CAPSULE (FP) PO SCH ×3 (08:09→17:39)
[2021-07-23] MEDS ORDERED: EPOETIN ALFA-EPBX 20,000 UNIT/ML VIAL IVPUSH ONE (11:00)
[2021-07-23] MEDS: POLYETHYLENE GLYCOL (HEALTHYLAX) 3350 17 GM PACKET PO SCH ×2 (11:27→21:12)
[2021-07-23] MEDS: ZINC SULFATE 220 MG CAPSULE (FP) PO SCH (11:33)
[2021-07-23] MEDS: PANTOPRAZOLE 40 MG TABLET PO SCH ×2 (11:33→21:14)
[2021-07-23] MEDS: VITAMIN B COMP W-C 1 EA TABLET (NEPHRO-VITE) PO SCH (11:33)
[2021-07-23 14:57] VITALS: BMI 47.0
[2021-07-23] MEDS: ATORVASTATIN CA 40 MG TABLET (FP) PO SCH (21:12)
[2021-07-24] MEDS: ACETAMINOPHEN 325 MG TABLET (FP) PO SCH ×2 (05:42→15:33)
[2021-07-24] MEDS: GABAPENTIN 300 MG CAPSULE PO SCH ×2 (05:43→15:34)
[2021-07-24] MEDS: oxyCODONE HCL 5 MG TABLET PO SCH (05:43)
[2021-07-24] MEDS: LEVOTHYROXINE NA 25 MCG TABLET (FP) PO SCH (06:00)
[2021-07-24] MEDS: INSULIN (NOVOLOG) ASPART 100 UNITS/ML 10ML VIAL SQ SCH ×2 (06:00→12:00)
[2021-07-24] MEDS: CALCIUM ACETATE 667 MG CAPSULE (FP) PO SCH ×2 (08:00→12:00)
[2021-07-24] MEDS: ZINC SULFATE 220 MG CAPSULE (FP) PO SCH (10:00)
[2021-07-24] MEDS: POLYETHYLENE GLYCOL (HEALTHYLAX) 3350 17 GM PACKET PO SCH (10:00)
[2021-07-24] MEDS: VITAMIN B COMP W-C 1 EA TABLET (NEPHRO-VITE) PO SCH (10:00)
[2021-07-24] MEDS: PANTOPRAZOLE 40 MG TABLET PO SCH (10:00)
[2021-07-24 10:44] LABS: HEMATOCRIT 22.8 % (35.4-49); MCH 28.3 pg (25.7-33.7); MCHC 30.8 g/dl (32.0-35.9); MEAN CELL VOLUME 91.9 fl (80-96); MEAN PLT VOLUME 8.6 fl (7.5-11.1); PLATELET COUNT 153 10^3/uL (134-434); RBC 2.48 M/mm3 (4.00-5.60); RDW 18.1 % (11.9-15.9); WHITE BLOOD COUNT 7.1 K/mm3 (4.0-10.0)
[2021-07-24] MEDS ORDERED: SODIUM CHLORIDE 250 ML IV PRN (11:00)
[2021-07-24 11:06] LABS: CALCIUM 8.6 mg/dL (8.5-10.1)
[2021-07-24 11:07] LABS: BLOOD UREA NITROGEN 24.7 mg/dL (7-18)
[2021-07-24 11:10] LABS: CREATININE 4.6 mg/dL (0.55-1.3)
[2021-07-24] MEDS ORDERED: IRON SUCROSE INJECTION 100 MG in SODIUM CHLORIDE 95 ML IVPB ONE (12:00)
[2021-07-24] MEDS ORDERED: EPOETIN ALFA-EPBX 20,000 UNIT/ML VIAL IVPUSH ONE (13:15)
[2021-07-24 19:00] VITALS: BP 110/72; PULSE 85; TEMP 97.6
== END 2021-07-24 16:30 | disposition home or self-care (01) | DRG 241 ==
LOC: JER 00:14 → JERBED 04:10 → J4S 11:04
PROVIDERS: ADMIT Internal Medicine; ATTEND Family Medicine
PROC: 5A1D70Z Performance of Urinary Filtration, Intermittent, Less than 6 Hours Per Day (ICD-10-PCS; principal; 2021-07-17)
PROC: 5A1D70Z Performance of Urinary Filtration, Intermittent, Less than 6 Hours Per Day (ICD-10-PCS; 2021-07-18)
PROC: 5A1D70Z Performance of Urinary Filtration, Intermittent, Less than 6 Hours Per Day (ICD-10-PCS; 2021-07-20)
PROC: 0DB68ZX Excision of Stomach, Via Natural or Artificial Opening Endoscopic, Diagnostic (ICD-10-PCS; 2021-07-21)
PROC: 5A1D70Z Performance of Urinary Filtration, Intermittent, Less than 6 Hours Per Day (ICD-10-PCS; 2021-07-22)
PROC: 0DBK8ZX Excision of Ascending Colon, Via Natural or Artificial Opening Endoscopic, Diagnostic (ICD-10-PCS; 2021-07-22)
PROC: 0DBN8ZX Excision of Sigmoid Colon, Via Natural or Artificial Opening Endoscopic, Diagnostic (ICD-10-PCS; 2021-07-22)
PROC: 0DBP8ZX Excision of Rectum, Via Natural or Artificial Opening Endoscopic, Diagnostic (ICD-10-PCS; 2021-07-22)
PROC: 0DBH8ZX Excision of Cecum, Via Natural or Artificial Opening Endoscopic, Diagnostic (ICD-10-PCS; 2021-07-22)
PROC: 5A1D70Z Performance of Urinary Filtration, Intermittent, Less than 6 Hours Per Day (ICD-10-PCS; 2021-07-24)
DX: K25.4 Chronic or unspecified gastric ulcer with hemorrhage (principal); E03.9 Hypothyroidism, unspecified; I13.2 Hypertensive heart and chronic kidney disease with heart failure and with stage 5 chronic kidney disease, or end stage renal disease; I50.32 Chronic diastolic (congestive) heart failure; N18.6 End stage renal disease; E11.22 Type 2 diabetes mellitus with diabetic chronic kidney disease; E11.622 Type 2 diabetes mellitus with other skin ulcer; L97.928 Non-pressure chronic ulcer of unspecified part of left lower leg with other specified severity; K76.6 Portal hypertension; D63.1 Anemia in chronic kidney disease; E11.42 Type 2 diabetes mellitus with diabetic polyneuropathy; K76.0 Fatty (change of) liver, not elsewhere classified; E11.610 Type 2 diabetes mellitus with diabetic neuropathic arthropathy; K64.9 Unspecified hemorrhoids; D12.6 Benign neoplasm of colon, unspecified; K59.00 Constipation, unspecified; E87.70 Fluid overload, unspecified; E78.5 Hyperlipidemia, unspecified; K57.90 Diverticulosis of intestine, part unspecified, without perforation or abscess without bleeding; G47.30 Sleep apnea, unspecified; I25.10 Atherosclerotic heart disease of native coronary artery without angina pectoris; D12.5 Benign neoplasm of sigmoid colon; D12.8 Benign neoplasm of rectum; D12.0 Benign neoplasm of cecum; D12.2 Benign neoplasm of ascending colon; I44.0 Atrioventricular block, first degree; D63.8 Anemia in other chronic diseases classified elsewhere; E66.01 Morbid (severe) obesity due to excess calories; Z68.42 Body mass index [BMI] 45.0-49.9, adult; Z99.2 Dependence on renal dialysis; Z89.431 Acquired absence of right foot
CPT/HCPCS: 36415; 71045-TC-FY; 80048; 80053; 82272; 82728; 82962; 83540; 83550; 83735; 84100; 84484; 85025; 85027; 85610; 85730; 86850; 86900; 86901; 88305-TC; 93005; 93010; 93970-TC; 99285-25; C9803; J1756; U0003; U0005

== ENCOUNTER 2021-08-05 13:40 | Inpatient (IN) | payer OTHER ==
[2021-08-05] MEDS ORDERED: ACETAMINOPHEN 1000 MG/100 ML BAG IVPB ONE (14:38)
[2021-08-05] MEDS ORDERED: morphine SULFATE 4 MG/ML VIAL IVPUSH ONE (14:38)
[2021-08-05] MEDS ORDERED: VANCOMYCIN 1 GM in D5W (PRE-DOCKED) 1,000 MG/250 ML IVPB ONE (14:43)
[2021-08-05] MEDS ORDERED: PIPERACILLIN/TAZOB 2.25 GM 2.25 GM in DEXTROSE 5%-WATER - 50 ML IVPB ONE (14:43)
[2021-08-05] MEDS ORDERED: ACETAMINOPHEN INJECTION 100 ML IVPB ONE (15:52)
[2021-08-05] MEDS ORDERED: morphine SULFATE 4 MG/ML VIAL ONE (15:52)
[2021-08-05] MEDS ORDERED: PIPERACILLIN/TAZOB 2.25 GM 2.25 GM/50 ML BAG IVPB ONE (15:53)
[2021-08-05] MEDS ORDERED: VANCOMYCIN 1 GRAM (PRE-DOCKED) 1,000 MG/250 ML BAG IVPB ONE (15:53)
[2021-08-05 16:33] LABS: BASO % 0.3 % (0-2.0); EOS % 1.7 % (0-4.5); HEMATOCRIT 25.4 % (35.4-49); HEMOGLOBIN 8.1 GM/dL (11.7-16.9); LYMPH % 4.9 % (8-40); MCH 28.8 pg (25.7-33.7); MCHC 31.9 g/dl (32.0-35.9); MEAN CELL VOLUME 90.4 fl (80-96); MEAN PLT VOLUME 7.7 fl (7.5-11.1); MONO % 6.5 % (3.8-10.2); NEUT % 86.6 % (42.8-82.8); PLATELET COUNT 252 10^3/uL (134-434); RBC 2.82 M/mm3 (4.00-5.60); WHITE BLOOD COUNT 10.4 K/mm3 (4.0-10.0)
[2021-08-05 16:38] LABS: INR 1.54 (0.83-1.09); PROTHROMBIN TIME (PATIENT) 17.8 SEC (9.7-13.0)
[2021-08-05 16:41] LABS: ACTIVATED PTT 39.3 SECONDS (25.2-36.5)
[2021-08-05 16:42] LABS: CALCIUM 8.9 mg/dL (8.5-10.1)
[2021-08-05 16:43] LABS: ALBUMIN 2.4 g/dl (3.4-5.0); BLOOD UREA NITROGEN 40.8 mg/dL (7-18)
[2021-08-05 16:46] LABS: CREATININE 3.9 mg/dL (0.55-1.3)
[2021-08-05 16:47] LABS: BILIRUBIN,TOTAL 0.6 mg/dL (0.2-1); TOT PROT 7.8 g/dl (6.4-8.2)
[2021-08-05] MEDS ORDERED: oxyCODONE HCL 5 MG TABLET ONE (18:40)
[2021-08-05] MEDS: oxyCODONE HCL 5 MG TABLET PO PRN (18:43)
[2021-08-05] MEDS ORDERED: GABAPENTIN 100 MG CAPSULE ONE (22:36)
[2021-08-05] MEDS ORDERED: DOCUSATE SODIUM 100 MG CAPSULE (FP) PO ONE (22:36)
[2021-08-05] MEDS ORDERED: ATORVASTATIN CA 40 MG TABLET (FP) ONE (22:36)
[2021-08-05] MEDS ORDERED: FERROUS SO4 325 MG TABLET (FP) ONE (22:37)
[2021-08-05] MEDS: FERROUS SO4 325 MG TABLET (FP) PO SCH (22:49)
[2021-08-05] MEDS: DOCUSATE SODIUM 100 MG CAPSULE (FP) PO SCH (22:49)
[2021-08-05] MEDS: INSULIN (LEVEMIR) 100 UNITS/ML UNITS SQ SCH (22:49)
[2021-08-05] MEDS: GABAPENTIN 300 MG CAPSULE PO SCH (22:50)
[2021-08-05] MEDS: ATORVASTATIN CA 40 MG TABLET (FP) PO SCH (22:50)
[2021-08-05] MEDS: INSULIN SLIDING SCALE (NOVOLOG) 1 VIAL SQ SCH (22:50)
[2021-08-06] MEDS: oxyCODONE HCL 5 MG TABLET PO PRN ×4 (01:33→22:10)
[2021-08-06] MEDS: LEVOTHYROXINE NA 25 MCG TABLET (FP) PO SCH (06:03)
[2021-08-06] MEDS: GABAPENTIN 300 MG CAPSULE PO SCH ×3 (06:03→22:10)
[2021-08-06] MEDS: DOCUSATE SODIUM 100 MG CAPSULE (FP) PO SCH ×3 (06:03→22:09)
[2021-08-06] MEDS: INSULIN SLIDING SCALE (NOVOLOG) 1 VIAL SQ SCH ×4 (06:08→22:40)
[2021-08-06] MEDS: CALCIUM ACETATE 667 MG CAPSULE (FP) PO SCH ×3 (08:56→17:32)
[2021-08-06] MEDS: POLYETHYLENE GLYCOL (HEALTHYLAX) 3350 17 GM PACKET PO SCH (09:48)
[2021-08-06] MEDS: PANTOPRAZOLE 40 MG TABLET PO SCH (09:48)
[2021-08-06] MEDS: MIDODRINE HCL 2.5 MG TABLET PO SCH ×3 (09:48→17:32)
[2021-08-06] MEDS: FERROUS SO4 325 MG TABLET (FP) PO SCH ×2 (09:48→22:10)
[2021-08-06] MEDS ORDERED: SODIUM CHLORIDE 250 ML IV PRN (11:18)
[2021-08-06] MEDS ORDERED: EPOETIN ALFA-EPBX 10,000 UNIT/ML VIAL SQ ONE (12:15)
[2021-08-06] MEDS ORDERED: VANCOMYCIN 1,000 MG in DEXTROSE 5%-WATER - 250 ML IVPB ONE (17:27)
[2021-08-06] MEDS ORDERED: DEXTROSE 5%-WATER - 50 ML IVPB ONE (18:17)
[2021-08-06] MEDS ORDERED: PIPERACILLIN/TAZOBACTAM 2.25 GM VIAL IVPB ONE (18:17)
[2021-08-06] MEDS: PIPERACILLIN/TAZOB 2.25 GM 2.25 GM in DEXTROSE 5%-WATER - 50 ML IVPB SCH (18:21)
[2021-08-06] MEDS ORDERED: VANCOMYCIN 1 GRAM (PRE-DOCKED) 1,000 MG/250 ML BAG IVPB ONE (18:45)
[2021-08-06] MEDS: TIZANIDINE HCL 2 MG TABLET PO PRN (22:10)
[2021-08-06] MEDS: ATORVASTATIN CA 40 MG TABLET (FP) PO SCH (22:10)
[2021-08-06] MEDS: INSULIN (LEVEMIR) 100 UNITS/ML UNITS SQ SCH (22:30)
[2021-08-07] MEDS ORDERED: PIPERACILLIN/TAZOBACTAM 2.25 GM VIAL IVPB ONE ×3 (02:45→17:04)
[2021-08-07] MEDS ORDERED: DEXTROSE 5%-WATER - 50 ML IVPB ONE ×3 (02:45→17:04)
[2021-08-07] MEDS: PIPERACILLIN/TAZOB 2.25 GM 2.25 GM in DEXTROSE 5%-WATER - 50 ML IVPB SCH ×3 (02:50→19:38)
[2021-08-07] MEDS: oxyCODONE HCL 5 MG TABLET PO PRN ×3 (06:16→23:43)
[2021-08-07] MEDS: DOCUSATE SODIUM 100 MG CAPSULE (FP) PO SCH ×3 (06:16→22:10)
[2021-08-07] MEDS: GABAPENTIN 300 MG CAPSULE PO SCH ×3 (06:16→23:44)
[2021-08-07] MEDS: LEVOTHYROXINE NA 25 MCG TABLET (FP) PO SCH (06:16)
[2021-08-07] MEDS: INSULIN SLIDING SCALE (NOVOLOG) 1 VIAL SQ SCH ×4 (06:19→23:45)
[2021-08-07] MEDS ORDERED: INSULIN (NOVOLOG) ASPART 100 UNITS/ML 10ML VIAL ONE (06:57)
[2021-08-07] MEDS: CALCIUM ACETATE 667 MG CAPSULE (FP) PO SCH ×3 (08:13→17:11)
[2021-08-07] MEDS ORDERED: SODIUM CHLORIDE 250 ML IV PRN ×2 (10:13→16:47)
[2021-08-07] MEDS: FERROUS SO4 325 MG TABLET (FP) PO SCH ×2 (11:22→23:45)
[2021-08-07] MEDS: MIDODRINE HCL 2.5 MG TABLET PO SCH ×3 (11:23→17:10)
[2021-08-07] MEDS: POLYETHYLENE GLYCOL (HEALTHYLAX) 3350 17 GM PACKET PO SCH (11:23)
[2021-08-07] MEDS: PANTOPRAZOLE 40 MG TABLET PO SCH (11:23)
[2021-08-07] MEDS ORDERED: EPOETIN ALFA-EPBX 10,000 UNIT/ML VIAL SQ ONE (14:00)
[2021-08-07 15:43] VITALS: BMI 43.5
[2021-08-07] MEDS ORDERED: MINERAL OIL ENEMA 133 ML ENEMA PR ONE (21:42)
[2021-08-07] MEDS: INSULIN (LEVEMIR) 100 UNITS/ML UNITS SQ SCH (22:45)
[2021-08-07] MEDS: TIZANIDINE HCL 2 MG TABLET PO PRN (23:44)
[2021-08-07] MEDS: ATORVASTATIN CA 40 MG TABLET (FP) PO SCH (23:44)
[2021-08-07] MEDS: POLYETHYLENE GLYCOL (HEALTHYLAX) 3350 17 GM PACKET PO PRN (23:46)
[2021-08-08] MEDS ORDERED: DEXTROSE 5%-WATER - 50 ML IVPB ONE ×3 (02:11→17:35)
[2021-08-08] MEDS ORDERED: PIPERACILLIN/TAZOBACTAM 2.25 GM VIAL IVPB ONE ×3 (02:11→17:35)
[2021-08-08] MEDS: PIPERACILLIN/TAZOB 2.25 GM 2.25 GM in DEXTROSE 5%-WATER - 50 ML IVPB SCH ×3 (03:00→17:58)
[2021-08-08] MEDS: DOCUSATE SODIUM 100 MG CAPSULE (FP) PO SCH ×3 (06:25→21:46)
[2021-08-08] MEDS: oxyCODONE HCL 5 MG TABLET PO PRN ×3 (06:25→21:50)
[2021-08-08] MEDS: GABAPENTIN 300 MG CAPSULE PO SCH ×3 (06:25→21:43)
[2021-08-08] MEDS: LEVOTHYROXINE NA 25 MCG TABLET (FP) PO SCH (06:25)
[2021-08-08] MEDS: INSULIN SLIDING SCALE (NOVOLOG) 1 VIAL SQ SCH ×4 (06:30→21:40)
[2021-08-08 09:02] LABS: MCH 28.4 pg (25.7-33.7); MCHC 31.5 g/dl (32.0-35.9); MEAN CELL VOLUME 90.2 fl (80-96); MEAN PLT VOLUME 7.4 fl (7.5-11.1); PLATELET COUNT 259 10^3/uL (134-434); RBC 2.44 M/mm3 (4.00-5.60); RDW 17.4 % (11.9-15.9); WHITE BLOOD COUNT 10.2 K/mm3 (4.0-10.0)
[2021-08-08 09:04] LABS: HEMOGLOBIN 6.9 GM/dL (11.7-16.9)
[2021-08-08] MEDS: MIDODRINE HCL 2.5 MG TABLET PO SCH ×3 (12:18→17:57)
[2021-08-08] MEDS: CALCIUM ACETATE 667 MG CAPSULE (FP) PO SCH ×3 (12:18→17:57)
[2021-08-08] MEDS: FERROUS SO4 325 MG TABLET (FP) PO SCH ×2 (12:30→21:43)
[2021-08-08] MEDS: PANTOPRAZOLE 40 MG TABLET PO SCH (12:30)
[2021-08-08] MEDS: INSULIN (LEVEMIR) 100 UNITS/ML UNITS SQ SCH (21:40)
[2021-08-08] MEDS: PANTOPRAZOLE SODIUM 40 MG VIAL IVPUSH SCH (21:41)
[2021-08-08] MEDS: ATORVASTATIN CA 40 MG TABLET (FP) PO SCH (21:43)
[2021-08-08] MEDS: POLYETHYLENE GLYCOL (HEALTHYLAX) 3350 17 GM PACKET PO PRN (21:50)
[2021-08-08] MEDS ORDERED: PANTOPRAZOLE SODIUM 40 MG in SODIUM CHLORIDE 100 ML IVPB SCH (22:00)
[2021-08-09] MEDS ORDERED: DEXTROSE 5%-WATER - 50 ML IVPB ONE ×3 (01:05→16:53)
[2021-08-09] MEDS ORDERED: PIPERACILLIN/TAZOBACTAM 2.25 GM VIAL IVPB ONE ×3 (01:05→16:53)
[2021-08-09] MEDS: PIPERACILLIN/TAZOB 2.25 GM 2.25 GM in DEXTROSE 5%-WATER - 50 ML IVPB SCH ×3 (01:43→17:16)
[2021-08-09] MEDS: GABAPENTIN 300 MG CAPSULE PO SCH ×3 (06:28→21:23)
[2021-08-09] MEDS: LEVOTHYROXINE NA 25 MCG TABLET (FP) PO SCH (06:28)
[2021-08-09] MEDS: DOCUSATE SODIUM 100 MG CAPSULE (FP) PO SCH ×3 (06:28→21:23)
[2021-08-09] MEDS: INSULIN SLIDING SCALE (NOVOLOG) 1 VIAL SQ SCH ×4 (06:31→21:32)
[2021-08-09] MEDS: oxyCODONE HCL 5 MG TABLET PO PRN ×3 (06:34→21:27)
[2021-08-09 09:19] LABS: BASO % 0.4 % (0-2.0); EOS % 2.1 % (0-4.5); HEMATOCRIT 24.2 % (35.4-49); HEMOGLOBIN 7.7 GM/dL (11.7-16.9); LYMPH % 10.4 % (8-40); MCH 28.5 pg (25.7-33.7); MCHC 31.7 g/dl (32.0-35.9); MEAN CELL VOLUME 89.8 fl (80-96); MEAN PLT VOLUME 7.5 fl (7.5-11.1); MONO % 6.9 % (3.8-10.2); NEUT % 80.2 % (42.8-82.8); PLATELET COUNT 282 10^3/uL (134-434); WHITE BLOOD COUNT 9.9 K/mm3 (4.0-10.0)
[2021-08-09 09:45] LABS: IRON SERUM 28 ug/dL (50-175)
[2021-08-09 09:46] LABS: TOTAL IRON BINDING CAPACITY 132 ug/dL (250-450)
[2021-08-09 09:54] LABS: ALBUMIN 2.1 g/dl (3.4-5.0); CALCIUM 8.2 mg/dL (8.5-10.1)
[2021-08-09 09:59] LABS: BILIRUBIN,TOTAL 0.6 mg/dL (0.2-1); TOT PROT 7.5 g/dl (6.4-8.2)
[2021-08-09] MEDS: FERROUS SO4 325 MG TABLET (FP) PO SCH ×2 (10:19→21:23)
[2021-08-09] MEDS: CALCIUM ACETATE 667 MG CAPSULE (FP) PO SCH ×3 (10:19→17:16)
[2021-08-09] MEDS: PANTOPRAZOLE SODIUM 40 MG VIAL IVPUSH SCH ×2 (10:19→21:27)
[2021-08-09] MEDS: MIDODRINE HCL 2.5 MG TABLET PO SCH ×3 (10:19→17:20)
[2021-08-09] MEDS: POLYETHYLENE GLYCOL (HEALTHYLAX) 3350 17 GM PACKET PO PRN (21:23)
[2021-08-09] MEDS: ATORVASTATIN CA 40 MG TABLET (FP) PO SCH (21:23)
[2021-08-09] MEDS: INSULIN (LEVEMIR) 100 UNITS/ML UNITS SQ SCH (21:32)
[2021-08-10] MEDS ORDERED: DEXTROSE 5%-WATER - 50 ML IVPB ONE ×3 (01:56→16:54)
[2021-08-10] MEDS ORDERED: PIPERACILLIN/TAZOBACTAM 2.25 GM VIAL IVPB ONE ×3 (01:56→16:53)
[2021-08-10] MEDS: PIPERACILLIN/TAZOB 2.25 GM 2.25 GM in DEXTROSE 5%-WATER - 50 ML IVPB SCH ×3 (02:07→17:38)
[2021-08-10] MEDS: LEVOTHYROXINE NA 25 MCG TABLET (FP) PO SCH (06:24)
[2021-08-10] MEDS: DOCUSATE SODIUM 100 MG CAPSULE (FP) PO SCH ×3 (06:24→21:28)
[2021-08-10] MEDS: GABAPENTIN 300 MG CAPSULE PO SCH ×3 (06:24→21:28)
[2021-08-10] MEDS: INSULIN SLIDING SCALE (NOVOLOG) 1 VIAL SQ SCH ×4 (06:27→21:34)
[2021-08-10] MEDS: oxyCODONE HCL 5 MG TABLET PO PRN ×3 (06:37→21:28)
[2021-08-10] MEDS: CALCIUM ACETATE 667 MG CAPSULE (FP) PO SCH ×3 (08:56→17:38)
[2021-08-10] MEDS ORDERED: EPOETIN ALFA 10,000 UNIT/1 ML VIAL IVPUSH ONE (10:45)
[2021-08-10] MEDS: FERROUS SO4 325 MG TABLET (FP) PO SCH ×2 (11:07→21:28)
[2021-08-10] MEDS: MIDODRINE HCL 2.5 MG TABLET PO SCH ×4 (11:07→17:40)
[2021-08-10] MEDS: PANTOPRAZOLE SODIUM 40 MG VIAL IVPUSH SCH ×2 (11:08→21:32)
[2021-08-10 11:19] LABS: HEMATOCRIT 23.8 % (35.4-49); HEMOGLOBIN 7.5 GM/dL (11.7-16.9); MCH 28.1 pg (25.7-33.7); MCHC 31.6 g/dl (32.0-35.9); MEAN CELL VOLUME 88.7 fl (80-96); MEAN PLT VOLUME 7.5 fl (7.5-11.1); PLATELET COUNT 280 10^3/uL (134-434); RBC 2.68 M/mm3 (4.00-5.60); RDW 17.6 % (11.9-15.9); WHITE BLOOD COUNT 10.2 K/mm3 (4.0-10.0)
[2021-08-10 12:03] LABS: CALCIUM 8.7 mg/dL (8.5-10.1)
[2021-08-10 12:04] LABS: BLOOD UREA NITROGEN 51.4 mg/dL (7-18)
[2021-08-10 12:07] LABS: CREATININE 6.1 mg/dL (0.55-1.3)
[2021-08-10] MEDS: ATORVASTATIN CA 40 MG TABLET (FP) PO SCH (21:28)
[2021-08-10] MEDS: POLYETHYLENE GLYCOL (HEALTHYLAX) 3350 17 GM PACKET PO PRN (21:32)
[2021-08-10] MEDS: INSULIN (LEVEMIR) 100 UNITS/ML UNITS SQ SCH (21:34)
[2021-08-11] MEDS ORDERED: PIPERACILLIN/TAZOBACTAM 2.25 GM VIAL IVPB ONE ×4 (01:08→17:53)
[2021-08-11] MEDS ORDERED: DEXTROSE 5%-WATER - 50 ML IVPB ONE ×4 (01:09→17:53)
[2021-08-11] MEDS: PIPERACILLIN/TAZOB 2.25 GM 2.25 GM in DEXTROSE 5%-WATER - 50 ML IVPB SCH ×4 (01:21→18:00)
[2021-08-11] MEDS: DOCUSATE SODIUM 100 MG CAPSULE (FP) PO SCH ×3 (05:42→22:07)
[2021-08-11] MEDS: GABAPENTIN 300 MG CAPSULE PO SCH ×3 (05:42→22:07)
[2021-08-11] MEDS: oxyCODONE HCL 5 MG TABLET PO PRN ×2 (05:43→18:08)
[2021-08-11] MEDS: LEVOTHYROXINE NA 25 MCG TABLET (FP) PO SCH (06:13)
[2021-08-11] MEDS: INSULIN SLIDING SCALE (NOVOLOG) 1 VIAL SQ SCH ×4 (06:13→23:07)
[2021-08-11] MEDS: PANTOPRAZOLE SODIUM 40 MG VIAL IVPUSH SCH ×3 (10:39→22:09)
[2021-08-11] MEDS: CALCIUM ACETATE 667 MG CAPSULE (FP) PO SCH ×3 (10:39→18:00)
[2021-08-11] MEDS: MIDODRINE HCL 2.5 MG TABLET PO SCH ×3 (10:39→18:00)
[2021-08-11] MEDS: FERROUS SO4 325 MG TABLET (FP) PO SCH ×3 (10:39→22:07)
[2021-08-11 14:08] LABS: BASO % 0.6 % (0-2.0); EOS % 2.2 % (0-4.5); HEMATOCRIT 26.8 % (35.4-49); HEMOGLOBIN 8.4 GM/dL (11.7-16.9); LYMPH % 10.1 % (8-40); MCH 28.1 pg (25.7-33.7); MCHC 31.4 g/dl (32.0-35.9); MEAN CELL VOLUME 89.4 fl (80-96); MEAN PLT VOLUME 7.4 fl (7.5-11.1); MONO % 6.8 % (3.8-10.2); NEUT % 80.3 % (42.8-82.8); PLATELET COUNT 287 10^3/uL (134-434); RDW 17.7 % (11.9-15.9); WHITE BLOOD COUNT 9.1 K/mm3 (4.0-10.0)
[2021-08-11 14:38] LABS: CALCIUM 8.8 mg/dL (8.5-10.1)
[2021-08-11 14:43] LABS: CREATININE 4.7 mg/dL (0.55-1.3)
[2021-08-11] MEDS ORDERED: SODIUM CHLORIDE 250 ML IV PRN ×2 (17:12→17:21)
[2021-08-11] MEDS ORDERED: VANCOMYCIN 1 GRAM (PRE-DOCKED) 1,000 MG/250 ML BAG IVPB ONE (20:20)
[2021-08-11] MEDS: ATORVASTATIN CA 40 MG TABLET (FP) PO SCH (22:07)
[2021-08-11] MEDS: INSULIN (LEVEMIR) 100 UNITS/ML UNITS SQ SCH (23:08)
[2021-08-12] MEDS: PIPERACILLIN/TAZOB 2.25 GM 2.25 GM in DEXTROSE 5%-WATER - 50 ML IVPB SCH ×3 (02:57→19:45)
[2021-08-12] MEDS ORDERED: PIPERACILLIN/TAZOBACTAM 2.25 GM VIAL IVPB ONE ×3 (03:40→19:39)
[2021-08-12] MEDS ORDERED: DEXTROSE 5%-WATER - 50 ML IVPB ONE ×3 (03:40→19:39)
[2021-08-12] MEDS: oxyCODONE HCL 5 MG TABLET PO PRN ×2 (05:57→19:50)
[2021-08-12] MEDS: DOCUSATE SODIUM 100 MG CAPSULE (FP) PO SCH ×3 (05:58→22:23)
[2021-08-12] MEDS: GABAPENTIN 300 MG CAPSULE PO SCH ×3 (05:58→22:23)
[2021-08-12] MEDS: INSULIN SLIDING SCALE (NOVOLOG) 1 VIAL SQ SCH ×4 (06:05→22:25)
[2021-08-12] MEDS: LEVOTHYROXINE NA 25 MCG TABLET (FP) PO SCH (06:06)
[2021-08-12] MEDS: CALCIUM ACETATE 667 MG CAPSULE (FP) PO SCH ×3 (07:47→19:51)
[2021-08-12] MEDS: FERROUS SO4 325 MG TABLET (FP) PO SCH ×2 (10:12→22:23)
[2021-08-12] MEDS: MIDODRINE HCL 2.5 MG TABLET PO SCH ×3 (10:12→22:28)
[2021-08-12] MEDS: PANTOPRAZOLE SODIUM 40 MG VIAL IVPUSH SCH ×2 (10:14→22:25)
[2021-08-12 10:49] LABS: BASO % 0.2 % (0-2.0); EOS % 2.6 % (0-4.5); HEMATOCRIT 26.2 % (35.4-49); HEMOGLOBIN 7.9 GM/dL (11.7-16.9); LYMPH % 13.6 % (8-40); MCHC 30.1 g/dl (32.0-35.9); MEAN CELL VOLUME 89.7 fl (80-96); MEAN PLT VOLUME 7.9 fl (7.5-11.1); MONO % 5.5 % (3.8-10.2); NEUT % 78.1 % (42.8-82.8); PLATELET COUNT 268 10^3/uL (134-434); RBC 2.92 M/mm3 (4.00-5.60); RDW 17.6 % (11.9-15.9)
[2021-08-12 11:10] LABS: BLOOD UREA NITROGEN 42.9 mg/dL (7-18)
[2021-08-12 11:11] LABS: CALCIUM 8.6 mg/dL (8.5-10.1)
[2021-08-12 11:15] LABS: CREATININE 5.8 mg/dL (0.55-1.3)
[2021-08-12] MEDS ORDERED: EPOETIN ALFA-EPBX 20,000 UNIT/ML VIAL IVPUSH ONE (17:12)
[2021-08-12] MEDS ORDERED: EPOETIN ALFA-EPBX 10,000 UNIT/ML VIAL IVPUSH ONE (17:12)
[2021-08-12] MEDS: METOCLOPRAMIDE HCL INJECTION 10 MG/2 ML VIAL IVPUSH SCH ×2 (19:47→22:28)
[2021-08-12] MEDS ORDERED: INSULIN (NOVOLOG) ASPART 100 UNITS/ML 10ML VIAL ONE (22:07)
[2021-08-12] MEDS: ATORVASTATIN CA 40 MG TABLET (FP) PO SCH (22:23)
[2021-08-12] MEDS: INSULIN (LEVEMIR) 100 UNITS/ML UNITS SQ SCH (22:24)
[2021-08-13] MEDS ORDERED: PIPERACILLIN/TAZOBACTAM 2.25 GM VIAL IVPB ONE ×3 (01:25→17:13)
[2021-08-13] MEDS ORDERED: DEXTROSE 5%-WATER - 50 ML IVPB ONE ×3 (01:25→17:13)
[2021-08-13] MEDS: PIPERACILLIN/TAZOB 2.25 GM 2.25 GM in DEXTROSE 5%-WATER - 50 ML IVPB SCH ×3 (02:00→17:26)
[2021-08-13] MEDS: oxyCODONE HCL 5 MG TABLET PO PRN ×3 (06:28→22:11)
[2021-08-13] MEDS: DOCUSATE SODIUM 100 MG CAPSULE (FP) PO SCH ×3 (06:28→22:10)
[2021-08-13] MEDS: LEVOTHYROXINE NA 25 MCG TABLET (FP) PO SCH (06:28)
[2021-08-13] MEDS: GABAPENTIN 300 MG CAPSULE PO SCH ×3 (06:28→22:10)
[2021-08-13] MEDS: INSULIN SLIDING SCALE (NOVOLOG) 1 VIAL SQ SCH ×4 (06:35→22:21)
[2021-08-13] MEDS: METOCLOPRAMIDE HCL INJECTION 10 MG/2 ML VIAL IVPUSH SCH ×3 (06:35→22:11)
[2021-08-13 07:54] LABS: HEMATOCRIT 24.8 % (35.4-49); HEMOGLOBIN 7.8 GM/dL (11.7-16.9); MCH 28.1 pg (25.7-33.7); MCHC 31.4 g/dl (32.0-35.9); MEAN CELL VOLUME 89.3 fl (80-96); MEAN PLT VOLUME 7.6 fl (7.5-11.1); PLATELET COUNT 249 10^3/uL (134-434); RBC 2.77 M/mm3 (4.00-5.60); RDW 16.9 % (11.9-15.9); WHITE BLOOD COUNT 7.4 K/mm3 (4.0-10.0)
[2021-08-13 08:21] LABS: CALCIUM 8.3 mg/dL (8.5-10.1)
[2021-08-13 08:22] LABS: BLOOD UREA NITROGEN 28.1 mg/dL (7-18)
[2021-08-13 08:24] LABS: CREATININE 4.6 mg/dL (0.55-1.3)
[2021-08-13 08:26] LABS: BILIRUBIN,TOTAL 0.5 mg/dL (0.2-1); TOT PROT 7.2 g/dl (6.4-8.2)
[2021-08-13] MEDS: CALCIUM ACETATE 667 MG CAPSULE (FP) PO SCH ×3 (08:58→17:24)
[2021-08-13] MEDS: FERROUS SO4 325 MG TABLET (FP) PO SCH ×2 (10:11→22:10)
[2021-08-13] MEDS: MIDODRINE HCL 2.5 MG TABLET PO SCH ×3 (10:12→17:24)
[2021-08-13] MEDS: PANTOPRAZOLE SODIUM 40 MG VIAL IVPUSH SCH ×2 (10:12→22:23)
[2021-08-13] MEDS ORDERED: INSULIN (NOVOLOG) ASPART 100 UNITS/ML 10ML VIAL ONE (11:17)
[2021-08-13] MEDS: ATORVASTATIN CA 40 MG TABLET (FP) PO SCH (22:11)
[2021-08-13] MEDS: INSULIN (LEVEMIR) 100 UNITS/ML UNITS SQ SCH (22:22)
[2021-08-14] MEDS: PIPERACILLIN/TAZOB 2.25 GM 2.25 GM in DEXTROSE 5%-WATER - 50 ML IVPB SCH ×3 (02:35→16:58)
[2021-08-14] MEDS ORDERED: PIPERACILLIN/TAZOBACTAM 2.25 GM VIAL IVPB ONE ×3 (03:12→16:49)
[2021-08-14] MEDS ORDERED: DEXTROSE 5%-WATER - 50 ML IVPB ONE ×3 (03:13→16:50)
[2021-08-14] MEDS: GABAPENTIN 300 MG CAPSULE PO SCH ×3 (05:49→22:16)
[2021-08-14] MEDS: DOCUSATE SODIUM 100 MG CAPSULE (FP) PO SCH ×3 (05:49→22:16)
[2021-08-14] MEDS: METOCLOPRAMIDE HCL INJECTION 10 MG/2 ML VIAL IVPUSH SCH ×3 (05:49→22:16)
[2021-08-14] MEDS: oxyCODONE HCL 5 MG TABLET PO PRN ×2 (05:50→17:02)
[2021-08-14] MEDS: INSULIN SLIDING SCALE (NOVOLOG) 1 VIAL SQ SCH ×4 (06:03→22:16)
[2021-08-14] MEDS: LEVOTHYROXINE NA 25 MCG TABLET (FP) PO SCH (06:53)
[2021-08-14] MEDS ORDERED: KETAMINE HCL 200 MG/20 ML VIAL ONE (07:01)
[2021-08-14] MEDS: CALCIUM ACETATE 667 MG CAPSULE (FP) PO SCH ×3 (07:59→16:54)
[2021-08-14] MEDS ORDERED: TETRACAINE/BENZOCAINE/BUTAMBEN 20 GM SPR TP ONE (08:14)
[2021-08-14] MEDS: MIDODRINE HCL 2.5 MG TABLET PO SCH ×3 (10:27→16:59)
[2021-08-14] MEDS: FERROUS SO4 325 MG TABLET (FP) PO SCH ×2 (10:27→22:24)
[2021-08-14] MEDS: PANTOPRAZOLE 40 MG TABLET PO SCH (10:28)
[2021-08-14] MEDS ORDERED: SODIUM CHLORIDE 250 ML IV PRN (11:45)
[2021-08-14] MEDS ORDERED: EPOETIN ALFA-EPBX 10,000 UNIT, EPOETIN ALFA-EPBX 2,000 UNIT, EPOETIN ALFA-EPBX 3,000 UNIT SQ ONE (12:15)
[2021-08-14 13:38] LABS: HEMATOCRIT 25.6 % (35.4-49); HEMOGLOBIN 7.7 GM/dL (11.7-16.9); MCH 27.1 pg (25.7-33.7); MCHC 30.1 g/dl (32.0-35.9); MEAN CELL VOLUME 90.1 fl (80-96); MEAN PLT VOLUME 7.9 fl (7.5-11.1); PLATELET COUNT 242 10^3/uL (134-434); RBC 2.84 M/mm3 (4.00-5.60); WHITE BLOOD COUNT 6.5 K/mm3 (4.0-10.0)
[2021-08-14] MEDS ORDERED: EPOETIN ALFA-EPBX 10,000 UNIT/ML VIAL SQ ONE (14:11)
[2021-08-14] MEDS ORDERED: VANCOMYCIN 1 GRAM (PRE-DOCKED) 1,000 MG/250 ML BAG IVPB ONE (16:00)
[2021-08-14] MEDS: ATORVASTATIN CA 40 MG TABLET (FP) PO SCH (22:16)
[2021-08-14] MEDS: INSULIN (LEVEMIR) 100 UNITS/ML UNITS SQ SCH (22:16)
[2021-08-15] MEDS ORDERED: DEXTROSE 5%-WATER - 50 ML IVPB ONE ×3 (01:32→16:29)
[2021-08-15] MEDS ORDERED: PIPERACILLIN/TAZOBACTAM 2.25 GM VIAL IVPB ONE ×3 (01:32→16:29)
[2021-08-15] MEDS: oxyCODONE HCL 5 MG TABLET PO PRN (01:55)
[2021-08-15] MEDS: PIPERACILLIN/TAZOB 2.25 GM 2.25 GM in DEXTROSE 5%-WATER - 50 ML IVPB SCH ×3 (01:55→17:07)
[2021-08-15] MEDS: LEVOTHYROXINE NA 25 MCG TABLET (FP) PO SCH (06:14)
[2021-08-15] MEDS: GABAPENTIN 300 MG CAPSULE PO SCH ×3 (06:14→22:16)
[2021-08-15] MEDS: METOCLOPRAMIDE HCL INJECTION 10 MG/2 ML VIAL IVPUSH SCH ×3 (06:14→22:16)
[2021-08-15] MEDS: DOCUSATE SODIUM 100 MG CAPSULE (FP) PO SCH ×3 (06:14→22:16)
[2021-08-15] MEDS: INSULIN SLIDING SCALE (NOVOLOG) 1 VIAL SQ SCH ×4 (06:17→22:16)
[2021-08-15] MEDS ORDERED: SODIUM CHLORIDE 250 ML IV PRN (07:36)
[2021-08-15] MEDS ORDERED: EPOETIN ALFA-EPBX 10,000 UNIT, EPOETIN ALFA-EPBX 3,000 UNIT, EPOETIN ALFA-EPBX 2,000 UNIT IVPUSH ONE (08:00)
[2021-08-15] MEDS: CALCIUM ACETATE 667 MG CAPSULE (FP) PO SCH ×3 (08:00→17:08)
[2021-08-15 09:36] LABS: HEMATOCRIT 26.8 % (35.4-49); HEMOGLOBIN 8.6 GM/dL (11.7-16.9); MCH 28.9 pg (25.7-33.7); MCHC 31.9 g/dl (32.0-35.9); MEAN CELL VOLUME 90.7 fl (80-96); MEAN PLT VOLUME 7.7 fl (7.5-11.1); PLATELET COUNT 245 10^3/uL (134-434); RBC 2.96 M/mm3 (4.00-5.60); RDW 17.3 % (11.9-15.9)
[2021-08-15] MEDS: MIDODRINE HCL 2.5 MG TABLET PO SCH ×3 (10:00→17:08)
[2021-08-15 10:05] LABS: BLOOD UREA NITROGEN 26.4 mg/dL (7-18); CALCIUM 8.2 mg/dL (8.5-10.1)
[2021-08-15 10:08] LABS: CREATININE 4.6 mg/dL (0.55-1.3)
[2021-08-15] MEDS: PANTOPRAZOLE 40 MG TABLET PO SCH (14:27)
[2021-08-15] MEDS: FERROUS SO4 325 MG TABLET (FP) PO SCH ×2 (14:28→22:16)
[2021-08-15] MEDS ORDERED: traMADol HCL 50 MG TABLET PO PRN (15:20)
[2021-08-15] MEDS ORDERED: EPOETIN ALFA-EPBX 10,000 UNIT/ML VIAL SQ ONE (18:16)
[2021-08-15] MEDS ORDERED: oxyCODONE HCL 5 MG TABLET PO ONE (20:10)
[2021-08-15] MEDS: ATORVASTATIN CA 40 MG TABLET (FP) PO SCH (22:16)
[2021-08-15] MEDS: INSULIN (LEVEMIR) 100 UNITS/ML UNITS SQ SCH (22:16)
[2021-08-16] MEDS: PIPERACILLIN/TAZOB 2.25 GM 2.25 GM in DEXTROSE 5%-WATER - 50 ML IVPB SCH ×3 (02:00→17:07)
[2021-08-16] MEDS ORDERED: PIPERACILLIN/TAZOBACTAM 2.25 GM VIAL IVPB ONE ×3 (02:40→15:44)
[2021-08-16] MEDS ORDERED: DEXTROSE 5%-WATER - 50 ML IVPB ONE ×3 (02:41→15:44)
[2021-08-16] MEDS: DOCUSATE SODIUM 100 MG CAPSULE (FP) PO SCH ×3 (06:51→21:21)
[2021-08-16] MEDS: GABAPENTIN 300 MG CAPSULE PO SCH ×3 (06:51→21:21)
[2021-08-16] MEDS: METOCLOPRAMIDE HCL INJECTION 10 MG/2 ML VIAL IVPUSH SCH ×3 (06:51→21:21)
[2021-08-16] MEDS: INSULIN SLIDING SCALE (NOVOLOG) 1 VIAL SQ SCH ×4 (06:53→21:21)
[2021-08-16] MEDS: LEVOTHYROXINE NA 25 MCG TABLET (FP) PO SCH (06:54)
[2021-08-16] MEDS: FERROUS SO4 325 MG TABLET (FP) PO SCH ×2 (10:43→21:21)
[2021-08-16] MEDS: CALCIUM ACETATE 667 MG CAPSULE (FP) PO SCH ×3 (10:43→17:08)
[2021-08-16] MEDS: PANTOPRAZOLE 40 MG TABLET PO SCH (10:43)
[2021-08-16] MEDS: MIDODRINE HCL 2.5 MG TABLET PO SCH ×3 (10:45→17:08)
[2021-08-16] MEDS: oxyCODONE HCL 5 MG TABLET PO PRN ×2 (12:42→21:22)
[2021-08-16] MEDS ORDERED: SODIUM CHLORIDE 250 ML IV PRN (13:44)
[2021-08-16] MEDS: INSULIN (LEVEMIR) 100 UNITS/ML UNITS SQ SCH (21:21)
[2021-08-16] MEDS: ATORVASTATIN CA 40 MG TABLET (FP) PO SCH (21:21)
[2021-08-17] MEDS ORDERED: PIPERACILLIN/TAZOBACTAM 2.25 GM VIAL IVPB ONE ×3 (01:02→17:39)
[2021-08-17] MEDS ORDERED: DEXTROSE 5%-WATER - 50 ML IVPB ONE ×3 (01:02→17:39)
[2021-08-17] MEDS: oxyCODONE HCL 5 MG TABLET PO PRN ×3 (02:06→21:20)
[2021-08-17] MEDS: PIPERACILLIN/TAZOB 2.25 GM 2.25 GM in DEXTROSE 5%-WATER - 50 ML IVPB SCH ×3 (02:07→18:19)
[2021-08-17] MEDS: DOCUSATE SODIUM 100 MG CAPSULE (FP) PO SCH ×3 (06:08→21:21)
[2021-08-17] MEDS: GABAPENTIN 300 MG CAPSULE PO SCH ×3 (06:08→21:21)
[2021-08-17] MEDS: METOCLOPRAMIDE HCL INJECTION 10 MG/2 ML VIAL IVPUSH SCH ×2 (06:08→14:58)
[2021-08-17] MEDS: LEVOTHYROXINE NA 25 MCG TABLET (FP) PO SCH (06:09)
[2021-08-17] MEDS: INSULIN SLIDING SCALE (NOVOLOG) 1 VIAL SQ SCH ×4 (06:12→21:26)
[2021-08-17] MEDS: CALCIUM ACETATE 667 MG CAPSULE (FP) PO SCH ×4 (08:12→18:19)
[2021-08-17] MEDS ORDERED: SODIUM CHLORIDE 250 ML IV PRN (09:59)
[2021-08-17] MEDS ORDERED: EPOETIN ALFA-EPBX 20,000 UNIT/ML VIAL IVPUSH ONE (10:00)
[2021-08-17] MEDS: FERROUS SO4 325 MG TABLET (FP) PO SCH ×2 (10:19→21:21)
[2021-08-17] MEDS: MIDODRINE HCL 2.5 MG TABLET PO SCH ×3 (10:19→18:19)
[2021-08-17] MEDS: PANTOPRAZOLE 40 MG TABLET PO SCH ×2 (10:19→15:06)
[2021-08-17 11:02] LABS: HEMATOCRIT 26.7 % (35.4-49); HEMOGLOBIN 8.3 GM/dL (11.7-16.9); MCH 27.9 pg (25.7-33.7); MEAN CELL VOLUME 89.8 fl (80-96); MEAN PLT VOLUME 7.9 fl (7.5-11.1); PLATELET COUNT 256 10^3/uL (134-434); RBC 2.97 M/mm3 (4.00-5.60); WHITE BLOOD COUNT 5.6 K/mm3 (4.0-10.0)
[2021-08-17 11:17] LABS: CALCIUM 8.2 mg/dL (8.5-10.1)
[2021-08-17 11:21] LABS: CREATININE 5.9 mg/dL (0.55-1.3); PHOSPHOROUS 5.5 mg/dL (2.5-4.9)
[2021-08-17] MEDS ORDERED: VANCOMYCIN 1,000 MG in DEXTROSE 5%-WATER - 250 ML IVPB ONE (15:59)
[2021-08-17] MEDS: ATORVASTATIN CA 40 MG TABLET (FP) PO SCH (21:21)
[2021-08-17] MEDS: INSULIN (LEVEMIR) 100 UNITS/ML UNITS SQ SCH (21:26)
[2021-08-18] MEDS ORDERED: PIPERACILLIN/TAZOBACTAM 2.25 GM VIAL IVPB ONE ×3 (01:00→18:08)
[2021-08-18] MEDS ORDERED: DEXTROSE 5%-WATER - 50 ML IVPB ONE ×3 (01:01→18:08)
[2021-08-18] MEDS: PIPERACILLIN/TAZOB 2.25 GM 2.25 GM in DEXTROSE 5%-WATER - 50 ML IVPB SCH ×3 (01:11→18:22)
[2021-08-18] MEDS: DOCUSATE SODIUM 100 MG CAPSULE (FP) PO SCH ×3 (05:37→21:58)
[2021-08-18] MEDS: GABAPENTIN 300 MG CAPSULE PO SCH ×3 (05:37→21:57)
[2021-08-18] MEDS: oxyCODONE HCL 5 MG TABLET PO PRN ×3 (05:38→21:58)
[2021-08-18] MEDS: LEVOTHYROXINE NA 25 MCG TABLET (FP) PO SCH (06:04)
[2021-08-18] MEDS: INSULIN SLIDING SCALE (NOVOLOG) 1 VIAL SQ SCH ×4 (06:04→22:03)
[2021-08-18] MEDS: CALCIUM ACETATE 667 MG CAPSULE (FP) PO SCH ×3 (08:19→18:22)
[2021-08-18] MEDS: FERROUS SO4 325 MG TABLET (FP) PO SCH ×2 (11:10→21:58)
[2021-08-18] MEDS: PANTOPRAZOLE 40 MG TABLET PO SCH (11:10)
[2021-08-18] MEDS: MIDODRINE HCL 2.5 MG TABLET PO SCH ×3 (11:11→18:22)
[2021-08-18] MEDS: ACETAMINOPHEN 325 MG TABLET (FP) PO PRN (15:36)
[2021-08-18] MEDS: ATORVASTATIN CA 40 MG TABLET (FP) PO SCH (21:58)
[2021-08-18] MEDS: INSULIN (LEVEMIR) 100 UNITS/ML UNITS SQ SCH (22:03)
[2021-08-19] MEDS ORDERED: PIPERACILLIN/TAZOBACTAM 2.25 GM VIAL IVPB ONE ×3 (00:56→17:13)
[2021-08-19] MEDS ORDERED: DEXTROSE 5%-WATER - 50 ML IVPB ONE ×3 (00:57→17:13)
[2021-08-19] MEDS: PIPERACILLIN/TAZOB 2.25 GM 2.25 GM in DEXTROSE 5%-WATER - 50 ML IVPB SCH ×3 (01:13→17:46)
[2021-08-19] MEDS: oxyCODONE HCL 5 MG TABLET PO PRN ×2 (06:16→18:40)
[2021-08-19] MEDS: GABAPENTIN 300 MG CAPSULE PO SCH ×3 (06:16→21:36)
[2021-08-19] MEDS: DOCUSATE SODIUM 100 MG CAPSULE (FP) PO SCH ×3 (06:16→21:36)
[2021-08-19] MEDS: LEVOTHYROXINE NA 25 MCG TABLET (FP) PO SCH (06:16)
[2021-08-19] MEDS: INSULIN SLIDING SCALE (NOVOLOG) 1 VIAL SQ SCH ×4 (06:17→21:37)
[2021-08-19] MEDS: CALCIUM ACETATE 667 MG CAPSULE (FP) PO SCH ×3 (08:07→17:47)
[2021-08-19 11:16] LABS: HEMATOCRIT 27.4 % (35.4-49); HEMOGLOBIN 8.6 GM/dL (11.7-16.9); MCH 28.1 pg (25.7-33.7); MCHC 31.5 g/dl (32.0-35.9); MEAN CELL VOLUME 89.2 fl (80-96); MEAN PLT VOLUME 7.7 fl (7.5-11.1); PLATELET COUNT 219 10^3/uL (134-434); RBC 3.07 M/mm3 (4.00-5.60); RDW 16.8 % (11.9-15.9); WHITE BLOOD COUNT 5.7 K/mm3 (4.0-10.0)
[2021-08-19] MEDS ORDERED: EPOETIN ALFA-EPBX 20,000 UNIT/ML VIAL SQ ONE (12:00)
[2021-08-19] MEDS ORDERED: SODIUM CHLORIDE 250 ML IV PRN (12:00)
[2021-08-19] MEDS: MIDODRINE HCL 2.5 MG TABLET PO SCH ×3 (16:17→17:48)
[2021-08-19] MEDS: FERROUS SO4 325 MG TABLET (FP) PO SCH ×2 (16:17→21:36)
[2021-08-19] MEDS: PANTOPRAZOLE 40 MG TABLET PO SCH (17:47)
[2021-08-19] MEDS: ACETAMINOPHEN 325 MG TABLET (FP) PO PRN (18:41)
[2021-08-19] MEDS ORDERED: INSULIN (NOVOLOG) ASPART 100 UNITS/ML 10ML VIAL ONE (18:54)
[2021-08-19] MEDS: INSULIN (LEVEMIR) 100 UNITS/ML UNITS SQ SCH (21:35)
[2021-08-19] MEDS: ATORVASTATIN CA 40 MG TABLET (FP) PO SCH (21:37)
[2021-08-19] MEDS ORDERED: oxyCODONE HCL 5 MG TABLET PO ONE (22:10)
[2021-08-20] MEDS ORDERED: PIPERACILLIN/TAZOBACTAM 2.25 GM VIAL IVPB ONE ×4 (01:17→18:16)
[2021-08-20] MEDS ORDERED: DEXTROSE 5%-WATER - 50 ML IVPB ONE ×3 (01:18→18:16)
[2021-08-20] MEDS: PIPERACILLIN/TAZOB 2.25 GM 2.25 GM in DEXTROSE 5%-WATER - 50 ML IVPB SCH ×2 (01:38→18:03)
[2021-08-20] MEDS: oxyCODONE HCL 5 MG TABLET PO PRN ×2 (02:08→20:32)
[2021-08-20] MEDS: GABAPENTIN 300 MG CAPSULE PO SCH ×3 (06:13→21:53)
[2021-08-20] MEDS: DOCUSATE SODIUM 100 MG CAPSULE (FP) PO SCH ×3 (06:13→21:53)
[2021-08-20] MEDS: INSULIN SLIDING SCALE (NOVOLOG) 1 VIAL SQ SCH ×3 (06:14→22:25)
[2021-08-20] MEDS: LEVOTHYROXINE NA 25 MCG TABLET (FP) PO SCH (06:14)
[2021-08-20] MEDS ORDERED: MIDAZOLAM HCL 2 MG/2 ML SINGLE DOSE VIAL ONE ×2 (08:41→09:36)
[2021-08-20] MEDS ORDERED: PROPOFOL 20 ML ONE (08:41)
[2021-08-20] MEDS ORDERED: ROCURONIUM BROMIDE 50 MG/5 ML SYRINGE ONE (08:44)
[2021-08-20] MEDS ORDERED: SUCCINYLCHOLINE CHLORIDE 200 MG/10 ML SYRINGE ONE (08:44)
[2021-08-20] MEDS ORDERED: SEVOFLURANE 250 ML BTL ONE (10:27)
[2021-08-20] MEDS ORDERED: morphine CARPU-JECT 4 MG/1 ML DISP.SYRIN IVPUSH PRN (12:28)
[2021-08-20] MEDS ORDERED: EPOETIN ALFA-EPBX 10,000 UNIT/ML VIAL SQ ONE (12:47)
[2021-08-20] MEDS ORDERED: ACETAMINOPHEN 325 MG TABLET (FP) PO PRN (12:47)
[2021-08-20] MEDS ORDERED: morphine SULFATE 4 MG/ML VIAL ONE (13:46)
[2021-08-20] MEDS ORDERED: ONDANSETRON 4 MG/2 ML VIAL IVPUSH PRN (13:49)
[2021-08-20] MEDS ORDERED: morphine SULFATE 4 MG/ML VIAL IVPUSH ONE ×2 (14:44→15:45)
[2021-08-20] MEDS: MIDODRINE HCL 2.5 MG TABLET PO SCH ×2 (15:16→18:03)
[2021-08-20] MEDS ORDERED: ACETAMINOPHEN 1000 MG/100 ML BAG IVPB ONE (15:37)
[2021-08-20] MEDS ORDERED: VANCOMYCIN/WATER FOR INJ (PEG) 1,000 MG/200 ML BAG IVPB ONE (16:00)
[2021-08-20] MEDS ORDERED: HYDROmorphone HCl 2 MG/ML VIAL IVPUSH ONE (17:12)
[2021-08-20] MEDS: FERROUS SO4 325 MG TABLET (FP) PO SCH (17:29)
[2021-08-20] MEDS: CALCIUM ACETATE 667 MG CAPSULE (FP) PO SCH (17:30)
[2021-08-20 20:58] LABS: ARTERIAL BLD GAS O2 SATURATION 91.9 % (95-98); ARTERIAL BLOOD GAS BASE EXCESS 1.5 mmol/L (-2-2)
[2021-08-20 20:59] LABS: ALLENS TEST POSITIVE
[2021-08-20] MEDS: CHLORHEXIDINE GLUCONATE 4% CLEANSER FOR DECOLONIZATION TP SCH (21:52)
[2021-08-20] MEDS: MUPIROCIN 2% TOPICAL OINTMENT FOR DECOLONIZATION NS SCH (21:53)
[2021-08-20] MEDS: ATORVASTATIN CA 40 MG TABLET (FP) PO SCH (21:53)
[2021-08-20] MEDS: INSULIN (LEVEMIR) 100 UNITS/ML UNITS SQ SCH (22:24)
[2021-08-21] MEDS ORDERED: DEXTROSE 5%-WATER - 50 ML IVPB ONE ×3 (00:20→17:42)
[2021-08-21] MEDS ORDERED: PIPERACILLIN/TAZOBACTAM 2.25 GM VIAL IVPB ONE ×3 (00:20→17:42)
[2021-08-21] MEDS: morphine SULFATE 4 MG/ML VIAL IVPUSH PRN (00:50)
[2021-08-21] MEDS: PIPERACILLIN/TAZOB 2.25 GM 2.25 GM in DEXTROSE 5%-WATER - 50 ML IVPB SCH ×4 (01:59→17:45)
[2021-08-21] MEDS: oxyCODONE HCL 5 MG TABLET PO PRN ×4 (02:40→21:55)
[2021-08-21] MEDS ORDERED: HYDROmorphone HCl 2 MG/ML VIAL IVPUSH ONE (05:35)
[2021-08-21] MEDS: DOCUSATE SODIUM 100 MG CAPSULE (FP) PO SCH ×3 (06:19→22:53)
[2021-08-21] MEDS: GABAPENTIN 300 MG CAPSULE PO SCH ×3 (06:19→22:53)
[2021-08-21] MEDS: LEVOTHYROXINE NA 25 MCG TABLET (FP) PO SCH (06:19)
[2021-08-21] MEDS: INSULIN SLIDING SCALE (NOVOLOG) 1 VIAL SQ SCH ×5 (06:19→22:53)
[2021-08-21 07:32] LABS: BLOOD UREA NITROGEN 39.4 mg/dL (7-18); CALCIUM 8.3 mg/dL (8.5-10.1)
[2021-08-21 07:35] LABS: CREATININE 5.6 mg/dL (0.55-1.3)
[2021-08-21 07:58] LABS: HEMATOCRIT 24.4 % (35.4-49); HEMOGLOBIN 7.8 GM/dL (11.7-16.9); MCH 28.3 pg (25.7-33.7); MCHC 32.1 g/dl (32.0-35.9); MEAN CELL VOLUME 88.2 fl (80-96); PLATELET COUNT 199 10^3/uL (134-434); RBC 2.77 M/mm3 (4.00-5.60); RDW 17.3 % (11.9-15.9); WHITE BLOOD COUNT 7.1 K/mm3 (4.0-10.0)
[2021-08-21] MEDS ORDERED: EPOETIN ALFA-EPBX 20,000 UNIT/ML VIAL IVPUSH ONE (09:00)
[2021-08-21] MEDS: FERROUS SO4 325 MG TABLET (FP) PO SCH ×3 (10:48→17:44)
[2021-08-21] MEDS: MUPIROCIN 2% TOPICAL OINTMENT FOR DECOLONIZATION NS SCH ×2 (10:49→22:52)
[2021-08-21] MEDS: CALCIUM ACETATE 667 MG CAPSULE (FP) PO SCH ×4 (10:49→17:45)
[2021-08-21] MEDS: PANTOPRAZOLE 40 MG TABLET PO SCH ×2 (10:49→11:16)
[2021-08-21] MEDS: MIDODRINE HCL 2.5 MG TABLET PO SCH ×4 (11:16→18:06)
[2021-08-21 13:28] LABS: INR 1.58 (0.83-1.09); PROTHROMBIN TIME (PATIENT) 18.3 SEC (9.7-13.0)
[2021-08-21 13:31] LABS: ACTIVATED PTT 37.8 SECONDS (25.2-36.5)
[2021-08-21] MEDS ORDERED: SODIUM CHLORIDE 250 ML IV PRN (14:35)
[2021-08-21] MEDS: CHLORHEXIDINE GLUCONATE 4% CLEANSER FOR DECOLONIZATION TP SCH (22:53)
[2021-08-21] MEDS: ATORVASTATIN CA 40 MG TABLET (FP) PO SCH (22:53)
[2021-08-21] MEDS: INSULIN (LEVEMIR) 100 UNITS/ML UNITS SQ SCH (22:53)
[2021-08-22] MEDS ORDERED: DEXTROSE 5%-WATER - 50 ML IVPB ONE ×4 (00:55→23:05)
[2021-08-22] MEDS ORDERED: PIPERACILLIN/TAZOBACTAM 2.25 GM VIAL IVPB ONE ×4 (00:55→23:05)
[2021-08-22] MEDS: PIPERACILLIN/TAZOB 2.25 GM 2.25 GM in DEXTROSE 5%-WATER - 50 ML IVPB SCH ×3 (02:39→17:03)
[2021-08-22] MEDS: oxyCODONE HCL 5 MG TABLET PO PRN ×4 (03:10→21:26)
[2021-08-22] MEDS: GABAPENTIN 300 MG CAPSULE PO SCH ×3 (06:03→21:28)
[2021-08-22] MEDS: DOCUSATE SODIUM 100 MG CAPSULE (FP) PO SCH ×3 (06:03→21:28)
[2021-08-22] MEDS: INSULIN SLIDING SCALE (NOVOLOG) 1 VIAL SQ SCH ×4 (06:04→21:45)
[2021-08-22] MEDS: LEVOTHYROXINE NA 25 MCG TABLET (FP) PO SCH (06:04)
[2021-08-22 06:53] LABS: BASO % 0.6 % (0-2.0); EOS % 4.3 % (0-4.5); HEMATOCRIT 22.7 % (35.4-49); HEMOGLOBIN 7.3 GM/dL (11.7-16.9); LYMPH % 17.7 % (8-40); MCH 28.4 pg (25.7-33.7); MCHC 32.1 g/dl (32.0-35.9); MEAN CELL VOLUME 88.6 fl (80-96); MEAN PLT VOLUME 7.9 fl (7.5-11.1); MONO % 12.6 % (3.8-10.2); NEUT % 64.8 % (42.8-82.8); PLATELET COUNT 177 10^3/uL (134-434); RBC 2.57 M/mm3 (4.00-5.60); RDW 17.2 % (11.9-15.9); WHITE BLOOD COUNT 6.4 K/mm3 (4.0-10.0)
[2021-08-22 07:23] LABS: ALBUMIN 1.8 g/dl (3.4-5.0); BLOOD UREA NITROGEN 30.8 mg/dL (7-18)
[2021-08-22 07:24] LABS: MAGNESIUM 1.6 mg/dL (1.8-2.4)
[2021-08-22 07:25] LABS: CREATININE 4.7 mg/dL (0.55-1.3); PHOSPHOROUS 4.3 mg/dL (2.5-4.9)
[2021-08-22 07:26] LABS: BILIRUBIN,TOTAL 0.5 mg/dL (0.2-1)
[2021-08-22 07:27] LABS: TOT PROT 6.4 g/dl (6.4-8.2)
[2021-08-22] MEDS: FERROUS SO4 325 MG TABLET (FP) PO SCH ×2 (08:05→17:02)
[2021-08-22] MEDS: CALCIUM ACETATE 667 MG CAPSULE (FP) PO SCH ×3 (08:06→17:02)
[2021-08-22] MEDS: PANTOPRAZOLE 40 MG TABLET PO SCH (09:55)
[2021-08-22] MEDS: MIDODRINE HCL 2.5 MG TABLET PO SCH ×3 (09:55→17:03)
[2021-08-22] MEDS: MUPIROCIN 2% TOPICAL OINTMENT FOR DECOLONIZATION NS SCH ×2 (09:57→21:28)
[2021-08-22] MEDS ORDERED: ACETAMINOPHEN 1000 MG/100 ML BAG IVPB ONE (10:12)
[2021-08-22] MEDS: morphine SULFATE 4 MG/ML VIAL IVPUSH PRN (17:07)
[2021-08-22] MEDS: CHLORHEXIDINE GLUCONATE 4% CLEANSER FOR DECOLONIZATION TP SCH (21:28)
[2021-08-22] MEDS: ATORVASTATIN CA 40 MG TABLET (FP) PO SCH (21:28)
[2021-08-22] MEDS: TIZANIDINE HCL 2 MG TABLET PO PRN (21:44)
[2021-08-22] MEDS: INSULIN (LEVEMIR) 100 UNITS/ML UNITS SQ SCH (21:47)
[2021-08-23] MEDS: PIPERACILLIN/TAZOB 2.25 GM 2.25 GM in DEXTROSE 5%-WATER - 50 ML IVPB SCH ×3 (01:30→17:02)
[2021-08-23] MEDS: morphine SULFATE 4 MG/ML VIAL IVPUSH PRN ×2 (03:43→17:03)
[2021-08-23] MEDS: GABAPENTIN 300 MG CAPSULE PO SCH ×3 (05:03→21:00)
[2021-08-23] MEDS: oxyCODONE HCL 5 MG TABLET PO PRN ×4 (05:04→20:55)
[2021-08-23] MEDS: DOCUSATE SODIUM 100 MG CAPSULE (FP) PO SCH ×3 (05:04→21:00)
[2021-08-23] MEDS: LEVOTHYROXINE NA 25 MCG TABLET (FP) PO SCH (06:15)
[2021-08-23] MEDS: INSULIN SLIDING SCALE (NOVOLOG) 1 VIAL SQ SCH ×4 (07:16→23:10)
[2021-08-23 07:19] LABS: BASO % 0.7 % (0-2.0); EOS % 5.8 % (0-4.5); HEMATOCRIT 24.2 % (35.4-49); HEMOGLOBIN 7.7 GM/dL (11.7-16.9); LYMPH % 17.2 % (8-40); MCH 28.6 pg (25.7-33.7); MEAN CELL VOLUME 89.3 fl (80-96); MEAN PLT VOLUME 7.9 fl (7.5-11.1); MONO % 10.8 % (3.8-10.2); NEUT % 65.5 % (42.8-82.8); PLATELET COUNT 181 10^3/uL (134-434); RBC 2.71 M/mm3 (4.00-5.60); RDW 16.6 % (11.9-15.9); WHITE BLOOD COUNT 6.1 K/mm3 (4.0-10.0)
[2021-08-23 07:37] LABS: ALBUMIN 1.9 g/dl (3.4-5.0); CALCIUM 8.8 mg/dL (8.5-10.1)
[2021-08-23 07:38] LABS: BLOOD UREA NITROGEN 46.2 mg/dL (7-18); MAGNESIUM 1.8 mg/dL (1.8-2.4)
[2021-08-23 07:41] LABS: CREATININE 6.2 mg/dL (0.55-1.3); PHOSPHOROUS 6.3 mg/dL (2.5-4.9)
[2021-08-23 07:42] LABS: BILIRUBIN,TOTAL 0.5 mg/dL (0.2-1); TOT PROT 6.6 g/dl (6.4-8.2)
[2021-08-23] MEDS: CALCIUM ACETATE 667 MG CAPSULE (FP) PO SCH ×3 (08:15→17:01)
[2021-08-23] MEDS: FERROUS SO4 325 MG TABLET (FP) PO SCH ×2 (08:15→17:01)
[2021-08-23] MEDS ORDERED: PIPERACILLIN/TAZOBACTAM 2.25 GM VIAL IVPB ONE ×2 (08:51→15:07)
[2021-08-23] MEDS ORDERED: DEXTROSE 5%-WATER - 50 ML IVPB ONE ×2 (08:51→15:07)
[2021-08-23] MEDS: PANTOPRAZOLE 40 MG TABLET PO SCH (09:40)
[2021-08-23] MEDS: MUPIROCIN 2% TOPICAL OINTMENT FOR DECOLONIZATION NS SCH ×2 (09:42→21:00)
[2021-08-23] MEDS: TIZANIDINE HCL 2 MG TABLET PO PRN ×2 (09:42→18:43)
[2021-08-23] MEDS: MIDODRINE HCL 2.5 MG TABLET PO SCH ×3 (09:48→17:02)
[2021-08-23] MEDS: POLYETHYLENE GLYCOL (HEALTHYLAX) 3350 17 GM PACKET PO PRN (20:55)
[2021-08-23] MEDS: CHLORHEXIDINE GLUCONATE 4% CLEANSER FOR DECOLONIZATION TP SCH (21:00)
[2021-08-23] MEDS: ATORVASTATIN CA 40 MG TABLET (FP) PO SCH (21:00)
[2021-08-23] MEDS: INSULIN (LEVEMIR) 100 UNITS/ML UNITS SQ SCH (22:00)
[2021-08-24] MEDS ORDERED: PIPERACILLIN/TAZOBACTAM 2.25 GM VIAL IVPB ONE ×3 (00:25→16:49)
[2021-08-24] MEDS ORDERED: DEXTROSE 5%-WATER - 50 ML IVPB ONE ×3 (00:26→16:50)
[2021-08-24] MEDS: morphine SULFATE 4 MG/ML VIAL IVPUSH PRN ×5 (00:32→21:38)
[2021-08-24] MEDS: PIPERACILLIN/TAZOB 2.25 GM 2.25 GM in DEXTROSE 5%-WATER - 50 ML IVPB SCH ×3 (01:13→17:33)
[2021-08-24] MEDS: TIZANIDINE HCL 2 MG TABLET PO PRN (03:32)
[2021-08-24] MEDS: oxyCODONE HCL 5 MG TABLET PO PRN (03:33)
[2021-08-24] MEDS ORDERED: SODIUM CHLORIDE 250 ML IV PRN (06:08)
[2021-08-24] MEDS: GABAPENTIN 300 MG CAPSULE PO SCH ×3 (06:12→21:25)
[2021-08-24] MEDS: LEVOTHYROXINE NA 25 MCG TABLET (FP) PO SCH (06:12)
[2021-08-24] MEDS: DOCUSATE SODIUM 100 MG CAPSULE (FP) PO SCH ×3 (06:12→21:25)
[2021-08-24] MEDS ORDERED: EPOETIN ALFA-EPBX 20,000 UNIT/ML VIAL SQ ONE (06:15)
[2021-08-24 07:05] LABS: BASO % 0.5 % (0-2.0); EOS % 5.3 % (0-4.5); HEMOGLOBIN 7.2 GM/dL (11.7-16.9); LYMPH % 17.7 % (8-40); MCH 28.1 pg (25.7-33.7); MCHC 31.4 g/dl (32.0-35.9); MEAN CELL VOLUME 89.5 fl (80-96); NEUT % 65.5 % (42.8-82.8); PLATELET COUNT 228 10^3/uL (134-434); RBC 2.57 M/mm3 (4.00-5.60); RDW 17.1 % (11.9-15.9); WHITE BLOOD COUNT 6.8 K/mm3 (4.0-10.0)
[2021-08-24 07:12] LABS: INR 1.4 (0.83-1.09); PROTHROMBIN TIME (PATIENT) 16.2 SEC (9.7-13.0)
[2021-08-24 07:14] LABS: ACTIVATED PTT 38.2 SECONDS (25.2-36.5)
[2021-08-24] MEDS: INSULIN SLIDING SCALE (NOVOLOG) 1 VIAL SQ SCH ×4 (07:21→22:37)
[2021-08-24 07:30] LABS: CHLORIDE 97 mmol/L (98-107); SODIUM 134 mmol/L (136-145)
[2021-08-24 07:31] LABS: CALCIUM 7.9 mg/dL (8.5-10.1)
[2021-08-24 07:32] LABS: ALBUMIN 1.8 g/dl (3.4-5.0); BLOOD UREA NITROGEN 58.1 mg/dL (7-18); CO2 26 mmol/L (21-32); GLUCOSE,RANDOM 108 mg/dL (74-106); MAGNESIUM 1.9 mg/dL (1.8-2.4)
[2021-08-24 07:35] LABS: SGOT/AST 7 U/L (15-37); SGPT/ALT 11 U/L (13-61)
[2021-08-24 07:36] LABS: BILIRUBIN,TOTAL 0.5 mg/dL (0.2-1)
[2021-08-24 07:37] LABS: TOT PROT 6.8 g/dl (6.4-8.2)
[2021-08-24 08:20] LABS: ALK PHOS 271 U/L (45-117); ANION GAP 11 MMOL/L (8-16); CREATININE 7.5 mg/dL (0.55-1.3)
[2021-08-24] MEDS: FERROUS SO4 325 MG TABLET (FP) PO SCH ×2 (09:14→16:44)
[2021-08-24] MEDS: CALCIUM ACETATE 667 MG CAPSULE (FP) PO SCH ×3 (09:14→16:44)
[2021-08-24] MEDS: MUPIROCIN 2% TOPICAL OINTMENT FOR DECOLONIZATION NS SCH ×2 (09:14→22:37)
[2021-08-24] MEDS: MIDODRINE HCL 2.5 MG TABLET PO SCH ×3 (09:15→17:33)
[2021-08-24] MEDS: PANTOPRAZOLE 40 MG TABLET PO SCH (09:15)
[2021-08-24] MEDS ORDERED: POLYETHYLENE GLYCOL (HEALTHYLAX) 3350 17 GM PACKET PO SCH (16:15)
[2021-08-24] MEDS: ATORVASTATIN CA 40 MG TABLET (FP) PO SCH (21:25)
[2021-08-24] MEDS: CHLORHEXIDINE GLUCONATE 4% CLEANSER FOR DECOLONIZATION TP SCH (21:29)
[2021-08-24] MEDS: INSULIN (LEVEMIR) 100 UNITS/ML UNITS SQ SCH (21:29)
[2021-08-25] MEDS ORDERED: DEXTROSE 5%-WATER - 50 ML IVPB ONE ×2 (02:14→09:34)
[2021-08-25] MEDS ORDERED: PIPERACILLIN/TAZOBACTAM 2.25 GM VIAL IVPB ONE ×2 (02:14→09:34)
[2021-08-25] MEDS: PIPERACILLIN/TAZOB 2.25 GM 2.25 GM in DEXTROSE 5%-WATER - 50 ML IVPB SCH ×2 (02:16→09:39)
[2021-08-25] MEDS: ACETAMINOPHEN 500 MG TABLET (FP) PO PRN ×2 (03:40→21:26)
[2021-08-25] MEDS: DOCUSATE SODIUM 100 MG CAPSULE (FP) PO SCH ×3 (05:51→21:27)
[2021-08-25] MEDS: GABAPENTIN 300 MG CAPSULE PO SCH ×3 (05:51→21:27)
[2021-08-25] MEDS: LEVOTHYROXINE NA 25 MCG TABLET (FP) PO SCH (06:04)
[2021-08-25] MEDS: INSULIN SLIDING SCALE (NOVOLOG) 1 VIAL SQ SCH ×4 (06:07→21:27)
[2021-08-25] MEDS: CALCIUM ACETATE 667 MG CAPSULE (FP) PO SCH ×3 (07:29→17:46)
[2021-08-25] MEDS: FERROUS SO4 325 MG TABLET (FP) PO SCH ×2 (07:29→17:46)
[2021-08-25] MEDS: MUPIROCIN 2% TOPICAL OINTMENT FOR DECOLONIZATION NS SCH (09:39)
[2021-08-25] MEDS: PANTOPRAZOLE 40 MG TABLET PO SCH (09:39)
[2021-08-25] MEDS: MIDODRINE HCL 2.5 MG TABLET PO SCH ×3 (09:39→17:46)
[2021-08-25] MEDS: POLYETHYLENE GLYCOL (HEALTHYLAX) 3350 17 GM PACKET PO PRN (09:40)
[2021-08-25] MEDS: morphine SULFATE 4 MG/ML VIAL IVPUSH PRN (09:42)
[2021-08-25 11:49] LABS: BASO % 0.7 % (0-2.0); EOS % 4.9 % (0-4.5); HEMATOCRIT 23.4 % (35.4-49); HEMOGLOBIN 7.6 GM/dL (11.7-16.9); LYMPH % 16.2 % (8-40); MCH 28.6 pg (25.7-33.7); MCHC 32.6 g/dl (32.0-35.9); MEAN CELL VOLUME 87.7 fl (80-96); MEAN PLT VOLUME 7.5 fl (7.5-11.1); MONO % 10.7 % (3.8-10.2); NEUT % 67.5 % (42.8-82.8); PLATELET COUNT 230 10^3/uL (134-434); RBC 2.67 M/mm3 (4.00-5.60); RDW 16.6 % (11.9-15.9)
[2021-08-25 12:00] LABS: CALCIUM 8.6 mg/dL (8.5-10.1)
[2021-08-25 12:01] LABS: BLOOD UREA NITROGEN 41.9 mg/dL (7-18)
[2021-08-25 12:04] LABS: CREATININE 5.8 mg/dL (0.55-1.3)
[2021-08-25] MEDS ORDERED: LACTULOSE 20 GM/30 ML UDC (FOR ORAL USE ONLY) PO ONE (17:13)
[2021-08-25] MEDS: oxyCODONE HCL 5 MG TABLET PO PRN (17:46)
[2021-08-25] MEDS ORDERED: PHENYLEPH/MINERAL OIL/PETROLAT 28 GM OINTMENT RC PRN (21:03)
[2021-08-25] MEDS: INSULIN (LEVEMIR) 100 UNITS/ML UNITS SQ SCH (21:26)
[2021-08-25] MEDS: ATORVASTATIN CA 40 MG TABLET (FP) PO SCH (21:26)
[2021-08-25] MEDS: CHLORHEXIDINE GLUCONATE 4% CLEANSER FOR DECOLONIZATION TP SCH (21:26)
[2021-08-25] MEDS: POLYETHYLENE GLYCOL (HEALTHYLAX) 3350 17 GM PACKET PO SCH (21:27)
[2021-08-26] MEDS ORDERED: MELATONIN 5 MG TABLETS PO ONE (00:01)
[2021-08-26] MEDS: oxyCODONE HCL 5 MG TABLET PO PRN ×3 (01:09→21:07)
[2021-08-26] MEDS: GABAPENTIN 300 MG CAPSULE PO SCH ×3 (06:09→21:54)
[2021-08-26] MEDS: POLYETHYLENE GLYCOL (HEALTHYLAX) 3350 17 GM PACKET PO SCH ×3 (06:09→21:55)
[2021-08-26] MEDS: LEVOTHYROXINE NA 25 MCG TABLET (FP) PO SCH (06:09)
[2021-08-26] MEDS: DOCUSATE SODIUM 100 MG CAPSULE (FP) PO SCH ×3 (06:10→21:54)
[2021-08-26] MEDS: INSULIN SLIDING SCALE (NOVOLOG) 1 VIAL SQ SCH ×4 (06:10→21:33)
[2021-08-26] MEDS ORDERED: SODIUM CHLORIDE 250 ML IV PRN (08:00)
[2021-08-26] MEDS ORDERED: EPOETIN ALFA-EPBX 20,000 UNIT/ML VIAL SQ ONE (08:00)
[2021-08-26] MEDS: ACETAMINOPHEN 500 MG TABLET (FP) PO PRN (13:10)
[2021-08-26] MEDS: PANTOPRAZOLE 40 MG TABLET PO SCH (13:11)
[2021-08-26] MEDS: FERROUS SO4 325 MG TABLET (FP) PO SCH ×2 (13:11→17:04)
[2021-08-26] MEDS: MIDODRINE HCL 2.5 MG TABLET PO SCH ×2 (13:12→17:04)
[2021-08-26] MEDS: CALCIUM ACETATE 667 MG CAPSULE (FP) PO SCH ×3 (13:12→17:04)
[2021-08-26] MEDS ORDERED: LACTULOSE 20 GM/30 ML UDC (FOR ORAL USE ONLY) PO ONE (15:41)
[2021-08-26] MEDS: ATORVASTATIN CA 40 MG TABLET (FP) PO SCH (21:54)
[2021-08-26] MEDS: INSULIN (LEVEMIR) 100 UNITS/ML UNITS SQ SCH (21:55)
[2021-08-26] MEDS ORDERED: CHLORHEXIDINE GLUCONATE 4% CLEANSER FOR DECOLONIZATION TP SCH (22:00)
[2021-08-27] MEDS: ACETAMINOPHEN 500 MG TABLET (FP) PO PRN (01:25)
[2021-08-27] MEDS: oxyCODONE HCL 5 MG TABLET PO PRN ×4 (03:02→21:55)
[2021-08-27] MEDS: DOCUSATE SODIUM 100 MG CAPSULE (FP) PO SCH ×3 (05:55→21:22)
[2021-08-27] MEDS: POLYETHYLENE GLYCOL (HEALTHYLAX) 3350 17 GM PACKET PO SCH ×3 (05:55→21:20)
[2021-08-27] MEDS: GABAPENTIN 300 MG CAPSULE PO SCH ×3 (05:55→21:21)
[2021-08-27] MEDS: INSULIN SLIDING SCALE (NOVOLOG) 1 VIAL SQ SCH ×4 (06:02→21:23)
[2021-08-27] MEDS: LEVOTHYROXINE NA 25 MCG TABLET (FP) PO SCH (06:04)
[2021-08-27] MEDS: FERROUS SO4 325 MG TABLET (FP) PO SCH ×2 (08:56→18:11)
[2021-08-27] MEDS: CALCIUM ACETATE 667 MG CAPSULE (FP) PO SCH ×3 (08:58→17:57)
[2021-08-27] MEDS ORDERED: SODIUM CHLORIDE 250 ML IV PRN (11:36)
[2021-08-27] MEDS ORDERED: LACTULOSE 20 GM/30 ML UDC (FOR ORAL USE ONLY) PO ONE ×2 (11:38→21:00)
[2021-08-27] MEDS: MIDODRINE HCL 2.5 MG TABLET PO SCH ×3 (11:50→18:02)
[2021-08-27] MEDS: PANTOPRAZOLE 40 MG TABLET PO SCH (15:40)
[2021-08-27] MEDS: ATORVASTATIN CA 40 MG TABLET (FP) PO SCH (21:22)
[2021-08-27] MEDS: INSULIN (LEVEMIR) 100 UNITS/ML UNITS SQ SCH (21:23)
[2021-08-28] MEDS: GABAPENTIN 300 MG CAPSULE PO SCH ×3 (06:02→21:26)
[2021-08-28] MEDS: INSULIN SLIDING SCALE (NOVOLOG) 1 VIAL SQ SCH ×4 (06:02→21:26)
[2021-08-28] MEDS: LEVOTHYROXINE NA 25 MCG TABLET (FP) PO SCH (06:02)
[2021-08-28] MEDS: POLYETHYLENE GLYCOL (HEALTHYLAX) 3350 17 GM PACKET PO SCH ×3 (06:02→21:25)
[2021-08-28] MEDS: DOCUSATE SODIUM 100 MG CAPSULE (FP) PO SCH ×3 (06:02→21:25)
[2021-08-28] MEDS: CALCIUM ACETATE 667 MG CAPSULE (FP) PO SCH ×3 (09:46→18:35)
[2021-08-28] MEDS: FERROUS SO4 325 MG TABLET (FP) PO SCH ×2 (09:46→18:35)
[2021-08-28] MEDS: PANTOPRAZOLE 40 MG TABLET PO SCH (09:46)
[2021-08-28] MEDS: MIDODRINE HCL 2.5 MG TABLET PO SCH ×3 (09:46→18:34)
[2021-08-28] MEDS: oxyCODONE HCL 5 MG TABLET PO PRN ×2 (09:51→18:34)
[2021-08-28] MEDS ORDERED: EPOETIN ALFA-EPBX 20,000 UNIT/ML VIAL IVPUSH ONE (11:30)
[2021-08-28] MEDS: ATORVASTATIN CA 40 MG TABLET (FP) PO SCH (21:25)
[2021-08-28] MEDS: INSULIN (LEVEMIR) 100 UNITS/ML UNITS SQ SCH (21:25)
[2021-08-29] MEDS: oxyCODONE HCL 5 MG TABLET PO PRN ×4 (00:40→20:35)
[2021-08-29] MEDS: DOCUSATE SODIUM 100 MG CAPSULE (FP) PO SCH ×3 (06:12→21:56)
[2021-08-29] MEDS: LEVOTHYROXINE NA 25 MCG TABLET (FP) PO SCH (06:12)
[2021-08-29] MEDS: GABAPENTIN 300 MG CAPSULE PO SCH ×3 (06:12→21:57)
[2021-08-29] MEDS: POLYETHYLENE GLYCOL (HEALTHYLAX) 3350 17 GM PACKET PO SCH ×3 (06:12→21:57)
[2021-08-29] MEDS: INSULIN SLIDING SCALE (NOVOLOG) 1 VIAL SQ SCH ×4 (06:15→22:03)
[2021-08-29] MEDS: ACETAMINOPHEN 500 MG TABLET (FP) PO PRN ×2 (07:30→14:01)
[2021-08-29] MEDS: CALCIUM ACETATE 667 MG CAPSULE (FP) PO SCH ×3 (08:30→17:01)
[2021-08-29] MEDS: FERROUS SO4 325 MG TABLET (FP) PO SCH ×2 (08:30→17:01)
[2021-08-29] MEDS: MIDODRINE HCL 2.5 MG TABLET PO SCH ×3 (09:22→17:01)
[2021-08-29] MEDS: PANTOPRAZOLE 40 MG TABLET PO SCH (09:24)
[2021-08-29 13:07] LABS: SARS-CoV-2 NAA Not Detected (Not Detected)
[2021-08-29] MEDS: INSULIN (LEVEMIR) 100 UNITS/ML UNITS SQ SCH (21:57)
[2021-08-29] MEDS: ATORVASTATIN CA 40 MG TABLET (FP) PO SCH (21:57)
[2021-08-30] MEDS: oxyCODONE HCL 5 MG TABLET PO PRN ×3 (03:44→21:01)
[2021-08-30] MEDS: DOCUSATE SODIUM 100 MG CAPSULE (FP) PO SCH ×3 (05:37→21:00)
[2021-08-30] MEDS: GABAPENTIN 300 MG CAPSULE PO SCH ×3 (05:37→21:00)
[2021-08-30] MEDS: POLYETHYLENE GLYCOL (HEALTHYLAX) 3350 17 GM PACKET PO SCH ×3 (05:37→21:00)
[2021-08-30] MEDS: LEVOTHYROXINE NA 25 MCG TABLET (FP) PO SCH (06:26)
[2021-08-30] MEDS: INSULIN SLIDING SCALE (NOVOLOG) 1 VIAL SQ SCH ×4 (07:00→21:02)
[2021-08-30] MEDS: FERROUS SO4 325 MG TABLET (FP) PO SCH ×2 (09:31→18:18)
[2021-08-30] MEDS: MIDODRINE HCL 2.5 MG TABLET PO SCH ×3 (09:31→18:41)
[2021-08-30] MEDS: CALCIUM ACETATE 667 MG CAPSULE (FP) PO SCH ×3 (09:31→18:17)
[2021-08-30] MEDS: PANTOPRAZOLE 40 MG TABLET PO SCH (09:31)
[2021-08-30] MEDS ORDERED: IRON SUCROSE INJECTION 100 MG in SODIUM CHLORIDE 95 ML IVPB ONE (12:00)
[2021-08-30 14:07] LABS: HEMATOCRIT 23.6 % (35.4-49); HEMOGLOBIN 7.7 GM/dL (11.7-16.9); MCH 28.8 pg (25.7-33.7); MCHC 32.7 g/dl (32.0-35.9); MEAN CELL VOLUME 88.2 fl (80-96); MEAN PLT VOLUME 7.6 fl (7.5-11.1); PLATELET COUNT 276 10^3/uL (134-434); RBC 2.67 M/mm3 (4.00-5.60); RDW 17.3 % (11.9-15.9); WHITE BLOOD COUNT 6.1 K/mm3 (4.0-10.0)
[2021-08-30] MEDS ORDERED: INSULIN (NOVOLOG) ASPART 100 UNITS/ML 10ML VIAL ONE (20:49)
[2021-08-30] MEDS: ATORVASTATIN CA 40 MG TABLET (FP) PO SCH (21:00)
[2021-08-30] MEDS: INSULIN (LEVEMIR) 100 UNITS/ML UNITS SQ SCH (21:01)
[2021-08-31] MEDS: GABAPENTIN 300 MG CAPSULE PO SCH ×3 (06:28→21:39)
[2021-08-31] MEDS: DOCUSATE SODIUM 100 MG CAPSULE (FP) PO SCH ×3 (06:28→21:40)
[2021-08-31] MEDS: oxyCODONE HCL 5 MG TABLET PO PRN ×2 (06:28→16:35)
[2021-08-31] MEDS: LEVOTHYROXINE NA 25 MCG TABLET (FP) PO SCH (06:28)
[2021-08-31] MEDS: POLYETHYLENE GLYCOL (HEALTHYLAX) 3350 17 GM PACKET PO SCH ×3 (06:29→21:40)
[2021-08-31] MEDS: INSULIN SLIDING SCALE (NOVOLOG) 1 VIAL SQ SCH ×4 (06:53→21:43)
[2021-08-31] MEDS: CALCIUM ACETATE 667 MG CAPSULE (FP) PO SCH ×3 (09:25→16:40)
[2021-08-31] MEDS: FERROUS SO4 325 MG TABLET (FP) PO SCH ×2 (09:25→16:41)
[2021-08-31] MEDS: TIZANIDINE HCL 2 MG TABLET PO PRN (09:26)
[2021-08-31] MEDS: MIDODRINE HCL 2.5 MG TABLET PO SCH ×3 (09:26→17:04)
[2021-08-31] MEDS: PANTOPRAZOLE 40 MG TABLET PO SCH (09:27)
[2021-08-31] MEDS ORDERED: EPOETIN ALFA-EPBX 20,000 UNIT/ML VIAL IVPUSH ONE (12:00)
[2021-08-31] MEDS ORDERED: IRON SUCROSE INJECTION 100 MG in SODIUM CHLORIDE 95 ML IVPB ONE ×2 (12:00→13:00)
[2021-08-31] MEDS ORDERED: SODIUM CHLORIDE 250 ML IV PRN (12:00)
[2021-08-31 14:50] LABS: HEMATOCRIT 24.9 % (35.4-49); HEMOGLOBIN 7.6 GM/dL (11.7-16.9); MCH 27.6 pg (25.7-33.7); MCHC 30.7 g/dl (32.0-35.9); MEAN CELL VOLUME 90.1 fl (80-96); MEAN PLT VOLUME 7.6 fl (7.5-11.1); PLATELET COUNT 275 10^3/uL (134-434); RBC 2.76 M/mm3 (4.00-5.60); RDW 17.5 % (11.9-15.9); WHITE BLOOD COUNT 6.1 K/mm3 (4.0-10.0)
[2021-08-31 15:11] LABS: CHLORIDE 98 mmol/L (98-107); SODIUM 134 mmol/L (136-145)
[2021-08-31 15:14] LABS: CALCIUM 8.6 mg/dL (8.5-10.1)
[2021-08-31 15:15] LABS: ANION GAP 10 MMOL/L (8-16); BLOOD UREA NITROGEN 58.4 mg/dL (7-18); CO2 26 mmol/L (21-32); GLUCOSE,RANDOM 120 mg/dL (74-106)
[2021-08-31 15:21] LABS: CREATININE 7.6 mg/dL (0.55-1.3)
[2021-08-31] MEDS: ATORVASTATIN CA 40 MG TABLET (FP) PO SCH (21:39)
[2021-08-31] MEDS: INSULIN (LEVEMIR) 100 UNITS/ML UNITS SQ SCH (21:55)
[2021-09-01] MEDS: oxyCODONE HCL 5 MG TABLET PO PRN ×3 (01:45→14:52)
[2021-09-01] MEDS: TIZANIDINE HCL 2 MG TABLET PO PRN (03:43)
[2021-09-01] MEDS: ACETAMINOPHEN 1000 MG/100 ML BAG IVPB ONE ×2 (04:00→04:37)
[2021-09-01] MEDS ORDERED: traMADol HCL 50 MG TABLET PO ONE (05:17)
[2021-09-01] MEDS: GABAPENTIN 300 MG CAPSULE PO SCH ×3 (05:19→21:26)
[2021-09-01] MEDS: DOCUSATE SODIUM 100 MG CAPSULE (FP) PO SCH ×3 (05:28→21:26)
[2021-09-01] MEDS: POLYETHYLENE GLYCOL (HEALTHYLAX) 3350 17 GM PACKET PO SCH ×3 (05:29→21:26)
[2021-09-01] MEDS: INSULIN SLIDING SCALE (NOVOLOG) 1 VIAL SQ SCH ×4 (06:12→21:26)
[2021-09-01] MEDS: LEVOTHYROXINE NA 25 MCG TABLET (FP) PO SCH (06:13)
[2021-09-01] MEDS ORDERED: HYDROmorphone HCL 2 MG TABLET PO ONE (08:15)
[2021-09-01] MEDS: PANTOPRAZOLE 40 MG TABLET PO SCH (09:19)
[2021-09-01] MEDS: CALCIUM ACETATE 667 MG CAPSULE (FP) PO SCH ×3 (09:19→16:43)
[2021-09-01] MEDS: FERROUS SO4 325 MG TABLET (FP) PO SCH ×2 (09:20→16:43)
[2021-09-01] MEDS: MIDODRINE HCL 2.5 MG TABLET PO SCH ×3 (09:20→17:58)
[2021-09-01] MEDS ORDERED: SODIUM CHLORIDE 250 ML IV PRN ×2 (12:53→12:54)
[2021-09-01] MEDS: INSULIN (LEVEMIR) 100 UNITS/ML UNITS SQ SCH (21:25)
[2021-09-01] MEDS: ATORVASTATIN CA 40 MG TABLET (FP) PO SCH (21:26)
[2021-09-02] MEDS: INSULIN SLIDING SCALE (NOVOLOG) 1 VIAL SQ SCH ×4 (06:40→21:28)
[2021-09-02] MEDS: POLYETHYLENE GLYCOL (HEALTHYLAX) 3350 17 GM PACKET PO SCH ×3 (06:40→21:28)
[2021-09-02] MEDS: DOCUSATE SODIUM 100 MG CAPSULE (FP) PO SCH ×3 (06:41→21:28)
[2021-09-02] MEDS: LEVOTHYROXINE NA 25 MCG TABLET (FP) PO SCH (06:41)
[2021-09-02] MEDS: ACETAMINOPHEN 500 MG TABLET (FP) PO PRN (08:57)
[2021-09-02] MEDS: MIDODRINE HCL 2.5 MG TABLET PO SCH ×3 (08:59→17:35)
[2021-09-02] MEDS: CALCIUM ACETATE 667 MG CAPSULE (FP) PO SCH ×3 (09:28→17:32)
[2021-09-02] MEDS: FERROUS SO4 325 MG TABLET (FP) PO SCH ×2 (09:28→17:32)
[2021-09-02] MEDS: PANTOPRAZOLE 40 MG TABLET PO SCH (09:28)
[2021-09-02] MEDS ORDERED: EPOETIN ALFA-EPBX 20,000 UNIT/ML VIAL IVPUSH ONE (11:00)
[2021-09-02] MEDS: oxyCODONE HCL 5 MG TABLET PO PRN ×2 (15:20→21:29)
[2021-09-02] MEDS: ATORVASTATIN CA 40 MG TABLET (FP) PO SCH (21:28)
[2021-09-02] MEDS: INSULIN (LEVEMIR) 100 UNITS/ML UNITS SQ SCH (21:28)
[2021-09-03] MEDS: POLYETHYLENE GLYCOL (HEALTHYLAX) 3350 17 GM PACKET PO SCH ×3 (06:03→21:52)
[2021-09-03] MEDS: DOCUSATE SODIUM 100 MG CAPSULE (FP) PO SCH ×3 (06:03→21:52)
[2021-09-03] MEDS: GABAPENTIN 300 MG CAPSULE PO SCH ×4 (06:27→21:54)
[2021-09-03] MEDS: oxyCODONE HCL 5 MG TABLET PO PRN ×3 (06:27→20:28)
[2021-09-03] MEDS: LEVOTHYROXINE NA 25 MCG TABLET (FP) PO SCH (06:27)
[2021-09-03] MEDS: INSULIN SLIDING SCALE (NOVOLOG) 1 VIAL SQ SCH ×4 (06:28→21:54)
[2021-09-03] MEDS: FERROUS SO4 325 MG TABLET (FP) PO SCH ×2 (08:54→16:51)
[2021-09-03] MEDS: CALCIUM ACETATE 667 MG CAPSULE (FP) PO SCH ×3 (08:54→16:51)
[2021-09-03] MEDS: MIDODRINE HCL 2.5 MG TABLET PO SCH ×3 (08:59→17:41)
[2021-09-03] MEDS: PANTOPRAZOLE 40 MG TABLET PO SCH (08:59)
[2021-09-03] MEDS ORDERED: SODIUM CHLORIDE 250 ML IV PRN (10:49)
[2021-09-03 16:10] LABS: HEMATOCRIT 22.4 % (35.4-49); MCH 27.5 pg (25.7-33.7); MCHC 30.9 g/dl (32.0-35.9); MEAN CELL VOLUME 88.8 fl (80-96); MEAN PLT VOLUME 7.7 fl (7.5-11.1); PLATELET COUNT 223 10^3/uL (134-434); RBC 2.53 M/mm3 (4.00-5.60); RDW 17.4 % (11.9-15.9); WHITE BLOOD COUNT 6.7 K/mm3 (4.0-10.0)
[2021-09-03 16:26] LABS: HEMOGLOBIN 6.9 GM/dL (11.7-16.9)
[2021-09-03] MEDS: INSULIN (LEVEMIR) 100 UNITS/ML UNITS SQ SCH (21:56)
[2021-09-03] MEDS: ATORVASTATIN CA 40 MG TABLET (FP) PO SCH (21:56)
[2021-09-04] MEDS: oxyCODONE HCL 5 MG TABLET PO PRN ×3 (01:46→18:38)
[2021-09-04] MEDS: LEVOTHYROXINE NA 25 MCG TABLET (FP) PO SCH (06:35)
[2021-09-04] MEDS: DOCUSATE SODIUM 100 MG CAPSULE (FP) PO SCH ×2 (06:36→13:41)
[2021-09-04] MEDS: GABAPENTIN 300 MG CAPSULE PO SCH ×3 (06:36→21:24)
[2021-09-04] MEDS: INSULIN SLIDING SCALE (NOVOLOG) 1 VIAL SQ SCH ×4 (06:36→21:25)
[2021-09-04] MEDS: POLYETHYLENE GLYCOL (HEALTHYLAX) 3350 17 GM PACKET PO SCH ×3 (06:36→21:24)
[2021-09-04] MEDS: PANTOPRAZOLE 40 MG TABLET PO SCH (09:25)
[2021-09-04] MEDS: CALCIUM ACETATE 667 MG CAPSULE (FP) PO SCH ×3 (09:27→16:49)
[2021-09-04] MEDS: MIDODRINE HCL 2.5 MG TABLET PO SCH ×3 (09:28→18:23)
[2021-09-04] MEDS: FERROUS SO4 325 MG TABLET (FP) PO SCH ×2 (09:31→16:49)
[2021-09-04] MEDS ORDERED: DOCUSATE SODIUM 100 MG CAPSULE (FP) PO PRN (13:53)
[2021-09-04] MEDS ORDERED: EPOETIN ALFA-EPBX 20,000 UNIT/ML VIAL IVPUSH ONE (16:00)
[2021-09-04] MEDS: INSULIN (LEVEMIR) 100 UNITS/ML UNITS SQ SCH (21:23)
[2021-09-04] MEDS: ATORVASTATIN CA 40 MG TABLET (FP) PO SCH (21:24)
[2021-09-04] MEDS: NYSTATIN POWDER 100,000 UNITS/GM - 15 GM TOPICAL POWDER TP SCH (21:25)
[2021-09-05] MEDS: oxyCODONE HCL 5 MG TABLET PO PRN ×4 (00:30→18:21)
[2021-09-05] MEDS: ACETAMINOPHEN 500 MG TABLET (FP) PO PRN (02:00)
[2021-09-05] MEDS: TIZANIDINE HCL 2 MG TABLET PO PRN (02:00)
[2021-09-05] MEDS: GABAPENTIN 300 MG CAPSULE PO SCH ×3 (06:24→21:46)
[2021-09-05] MEDS: POLYETHYLENE GLYCOL (HEALTHYLAX) 3350 17 GM PACKET PO SCH ×3 (06:24→21:46)
[2021-09-05] MEDS: LEVOTHYROXINE NA 25 MCG TABLET (FP) PO SCH (06:24)
[2021-09-05] MEDS: INSULIN SLIDING SCALE (NOVOLOG) 1 VIAL SQ SCH ×4 (06:26→21:46)
[2021-09-05 08:07] LABS: SARS-CoV-2 NAA Not Detected (Not Detected)
[2021-09-05] MEDS: NYSTATIN POWDER 100,000 UNITS/GM - 15 GM TOPICAL POWDER TP SCH ×2 (09:12→21:46)
[2021-09-05] MEDS: PANTOPRAZOLE 40 MG TABLET PO SCH (09:13)
[2021-09-05] MEDS: CALCIUM ACETATE 667 MG CAPSULE (FP) PO SCH ×3 (09:13→16:39)
[2021-09-05] MEDS: FERROUS SO4 325 MG TABLET (FP) PO SCH ×2 (09:13→16:39)
[2021-09-05] MEDS: MIDODRINE HCL 2.5 MG TABLET PO SCH ×3 (09:14→17:12)
[2021-09-05] MEDS: ATORVASTATIN CA 40 MG TABLET (FP) PO SCH (21:45)
[2021-09-05] MEDS: INSULIN (LEVEMIR) 100 UNITS/ML UNITS SQ SCH (21:45)
[2021-09-06] MEDS: oxyCODONE HCL 5 MG TABLET PO PRN ×4 (00:01→18:37)
[2021-09-06] MEDS: POLYETHYLENE GLYCOL (HEALTHYLAX) 3350 17 GM PACKET PO SCH ×3 (05:55→21:09)
[2021-09-06] MEDS: INSULIN SLIDING SCALE (NOVOLOG) 1 VIAL SQ SCH ×4 (06:09→21:10)
[2021-09-06] MEDS: GABAPENTIN 300 MG CAPSULE PO SCH ×3 (06:09→21:10)
[2021-09-06] MEDS: LEVOTHYROXINE NA 25 MCG TABLET (FP) PO SCH (06:12)
[2021-09-06 08:36] LABS: BASO % 0.6 % (0-2.0); EOS % 5.8 % (0-4.5); HEMATOCRIT 26.3 % (35.4-49); HEMOGLOBIN 8.4 GM/dL (11.7-16.9); LYMPH % 20.9 % (8-40); MCH 27.9 pg (25.7-33.7); MCHC 31.9 g/dl (32.0-35.9); MEAN CELL VOLUME 87.6 fl (80-96); MEAN PLT VOLUME 7.8 fl (7.5-11.1); MONO % 8.9 % (3.8-10.2); NEUT % 63.8 % (42.8-82.8); PLATELET COUNT 213 10^3/uL (134-434); RDW 16.8 % (11.9-15.9); WHITE BLOOD COUNT 5.8 K/mm3 (4.0-10.0)
[2021-09-06 08:51] LABS: CALCIUM 8.7 mg/dL (8.5-10.1)
[2021-09-06 08:52] LABS: ALBUMIN 2.2 g/dl (3.4-5.0); BLOOD UREA NITROGEN 41.1 mg/dL (7-18)
[2021-09-06 08:55] LABS: BILIRUBIN,TOTAL 0.7 mg/dL (0.2-1); CREATININE 6.1 mg/dL (0.55-1.3); PHOSPHOROUS 5.8 mg/dL (2.5-4.9); TOT PROT 7.3 g/dl (6.4-8.2)
[2021-09-06] MEDS: FERROUS SO4 325 MG TABLET (FP) PO SCH ×2 (09:46→17:23)
[2021-09-06] MEDS: CALCIUM ACETATE 667 MG CAPSULE (FP) PO SCH ×3 (09:46→17:23)
[2021-09-06] MEDS: NYSTATIN POWDER 100,000 UNITS/GM - 15 GM TOPICAL POWDER TP SCH ×2 (09:46→21:11)
[2021-09-06] MEDS: PANTOPRAZOLE 40 MG TABLET PO SCH (09:47)
[2021-09-06] MEDS: MIDODRINE HCL 2.5 MG TABLET PO SCH ×3 (09:47→18:36)
[2021-09-06] MEDS: INSULIN (LEVEMIR) 100 UNITS/ML UNITS SQ SCH (21:09)
[2021-09-06] MEDS: ATORVASTATIN CA 40 MG TABLET (FP) PO SCH (21:10)
[2021-09-07] MEDS: oxyCODONE HCL 5 MG TABLET PO PRN ×3 (00:06→17:01)
[2021-09-07] MEDS: POLYETHYLENE GLYCOL (HEALTHYLAX) 3350 17 GM PACKET PO SCH ×3 (05:26→21:56)
[2021-09-07] MEDS: GABAPENTIN 300 MG CAPSULE PO SCH ×3 (06:15→21:56)
[2021-09-07] MEDS: LEVOTHYROXINE NA 25 MCG TABLET (FP) PO SCH (06:15)
[2021-09-07] MEDS: INSULIN SLIDING SCALE (NOVOLOG) 1 VIAL SQ SCH ×4 (06:19→21:57)
[2021-09-07] MEDS: PANTOPRAZOLE 40 MG TABLET PO SCH (09:30)
[2021-09-07] MEDS: FERROUS SO4 325 MG TABLET (FP) PO SCH ×2 (09:30→16:57)
[2021-09-07] MEDS: CALCIUM ACETATE 667 MG CAPSULE (FP) PO SCH ×3 (09:30→16:57)
[2021-09-07] MEDS: MIDODRINE HCL 2.5 MG TABLET PO SCH ×3 (09:30→17:20)
[2021-09-07] MEDS: NYSTATIN POWDER 100,000 UNITS/GM - 15 GM TOPICAL POWDER TP SCH ×2 (09:31→21:59)
[2021-09-07] MEDS ORDERED: EPOETIN ALFA-EPBX 20,000 UNIT/ML VIAL IVPUSH ONE (12:30)
[2021-09-07] MEDS: INSULIN (LEVEMIR) 100 UNITS/ML UNITS SQ SCH (21:54)
[2021-09-07] MEDS: ATORVASTATIN CA 40 MG TABLET (FP) PO SCH (21:56)
[2021-09-08] MEDS: POLYETHYLENE GLYCOL (HEALTHYLAX) 3350 17 GM PACKET PO SCH ×3 (05:54→23:03)
[2021-09-08] MEDS: oxyCODONE HCL 5 MG TABLET PO PRN ×3 (05:55→23:07)
[2021-09-08] MEDS: GABAPENTIN 300 MG CAPSULE PO SCH ×3 (05:56→23:04)
[2021-09-08] MEDS: LEVOTHYROXINE NA 25 MCG TABLET (FP) PO SCH (06:00)
[2021-09-08] MEDS: INSULIN SLIDING SCALE (NOVOLOG) 1 VIAL SQ SCH ×4 (06:00→23:04)
[2021-09-08] MEDS: FERROUS SO4 325 MG TABLET (FP) PO SCH ×2 (09:28→16:46)
[2021-09-08] MEDS: PANTOPRAZOLE 40 MG TABLET PO SCH (09:28)
[2021-09-08] MEDS: CALCIUM ACETATE 667 MG CAPSULE (FP) PO SCH ×3 (09:28→16:46)
[2021-09-08] MEDS: MIDODRINE HCL 2.5 MG TABLET PO SCH ×3 (09:29→17:03)
[2021-09-08] MEDS: NYSTATIN POWDER 100,000 UNITS/GM - 15 GM TOPICAL POWDER TP SCH ×2 (09:29→23:07)
[2021-09-08] MEDS ORDERED: IRON SUCROSE INJECTION 100 MG in SODIUM CHLORIDE 95 ML IVPB ONE (12:00)
[2021-09-08] MEDS ORDERED: SODIUM CHLORIDE 250 ML IV PRN (12:00)
[2021-09-08] MEDS ORDERED: INSULIN (NOVOLOG) ASPART 100 UNITS/ML 10ML VIAL ONE (22:49)
[2021-09-08] MEDS: ATORVASTATIN CA 40 MG TABLET (FP) PO SCH (23:04)
[2021-09-08] MEDS: INSULIN (LEVEMIR) 100 UNITS/ML UNITS SQ SCH (23:05)
[2021-09-09] MEDS: POLYETHYLENE GLYCOL (HEALTHYLAX) 3350 17 GM PACKET PO SCH ×3 (06:27→21:34)
[2021-09-09] MEDS: GABAPENTIN 300 MG CAPSULE PO SCH ×3 (06:28→21:34)
[2021-09-09] MEDS: oxyCODONE HCL 5 MG TABLET PO PRN ×2 (06:28→17:05)
[2021-09-09] MEDS: LEVOTHYROXINE NA 25 MCG TABLET (FP) PO SCH (06:28)
[2021-09-09] MEDS: INSULIN SLIDING SCALE (NOVOLOG) 1 VIAL SQ SCH ×4 (06:29→21:35)
[2021-09-09] MEDS: CALCIUM ACETATE 667 MG CAPSULE (FP) PO SCH ×3 (08:00→17:05)
[2021-09-09] MEDS ORDERED: IRON SUCROSE INJECTION 100 MG in SODIUM CHLORIDE 95 ML IVPB ONE (10:00)
[2021-09-09] MEDS ORDERED: EPOETIN ALFA-EPBX 20,000 UNIT/ML VIAL SQ ONE (10:00)
[2021-09-09 11:30] LABS: HEMOGLOBIN 8.1 GM/dL (11.7-16.9); MCH 28.1 pg (25.7-33.7); MCHC 31.2 g/dl (32.0-35.9); MEAN CELL VOLUME 89.9 fl (80-96); MEAN PLT VOLUME 7.8 fl (7.5-11.1); PLATELET COUNT 176 10^3/uL (134-434); RBC 2.89 M/mm3 (4.00-5.60); RDW 17.3 % (11.9-15.9); WHITE BLOOD COUNT 5.8 K/mm3 (4.0-10.0)
[2021-09-09 12:14] LABS: BLOOD UREA NITROGEN 47.2 mg/dL (7-18); CALCIUM 8.2 mg/dL (8.5-10.1); CREATININE 7.2 mg/dL (0.55-1.3)
[2021-09-09] MEDS: NYSTATIN POWDER 100,000 UNITS/GM - 15 GM TOPICAL POWDER TP SCH ×2 (14:32→21:36)
[2021-09-09] MEDS: PANTOPRAZOLE 40 MG TABLET PO SCH (14:33)
[2021-09-09] MEDS: FERROUS SO4 325 MG TABLET (FP) PO SCH ×2 (14:33→17:05)
[2021-09-09] MEDS: MIDODRINE HCL 2.5 MG TABLET PO SCH ×2 (14:34→17:06)
[2021-09-09] MEDS ORDERED: INSULIN (NOVOLOG) ASPART 100 UNITS/ML 10ML VIAL ONE (21:25)
[2021-09-09] MEDS: ATORVASTATIN CA 40 MG TABLET (FP) PO SCH (21:35)
[2021-09-09] MEDS: INSULIN (LEVEMIR) 100 UNITS/ML UNITS SQ SCH (21:37)
[2021-09-10] MEDS: oxyCODONE HCL 5 MG TABLET PO PRN ×2 (04:55→16:53)
[2021-09-10] MEDS: POLYETHYLENE GLYCOL (HEALTHYLAX) 3350 17 GM PACKET PO SCH ×2 (06:22→15:03)
[2021-09-10] MEDS: INSULIN SLIDING SCALE (NOVOLOG) 1 VIAL SQ SCH ×2 (06:22→12:06)
[2021-09-10] MEDS: LEVOTHYROXINE NA 25 MCG TABLET (FP) PO SCH (06:22)
[2021-09-10] MEDS: GABAPENTIN 300 MG CAPSULE PO SCH ×2 (06:22→15:03)
[2021-09-10] MEDS: FERROUS SO4 325 MG TABLET (FP) PO SCH (10:33)
[2021-09-10] MEDS: MIDODRINE HCL 2.5 MG TABLET PO SCH ×2 (10:33→15:03)
[2021-09-10] MEDS: PANTOPRAZOLE 40 MG TABLET PO SCH (10:33)
[2021-09-10] MEDS: CALCIUM ACETATE 667 MG CAPSULE (FP) PO SCH ×2 (10:33→12:06)
[2021-09-10] MEDS: NYSTATIN POWDER 100,000 UNITS/GM - 15 GM TOPICAL POWDER TP SCH (10:33)
[2021-09-10 14:27] VITALS: BP 142/81; PULSE 93; TEMP 98.3
[2021-09-10] MEDS ORDERED: INSULIN (NOVOLOG) ASPART 100 UNITS/ML 10ML VIAL ONE (15:40)
[2021-09-10] MEDS: ACETAMINOPHEN 500 MG TABLET (FP) PO PRN (16:54)
[2021-09-11 10:07] LABS: SARS-CoV-2 NAA Not Detected (Not Detected)
== END 2021-09-10 17:05 | DRG 711 ==
LOC: JER 13:40 → JERBED 14:58 → J8W 08-06 01:25 → JICU 08-20 14:21 → J7W 08-26 00:58
PROVIDERS: ADMIT Family Medicine; ATTEND Family Medicine
PROC: 0DJ08ZZ Inspection of Upper Intestinal Tract, Via Natural or Artificial Opening Endoscopic (ICD-10-PCS; 2021-08-12)
PROC: 0DB98ZX Excision of Duodenum, Via Natural or Artificial Opening Endoscopic, Diagnostic (ICD-10-PCS; 2021-08-14)
PROC: 0DB68ZX Excision of Stomach, Via Natural or Artificial Opening Endoscopic, Diagnostic (ICD-10-PCS; 2021-08-14)
PROC: 0Y6J0Z1 Detachment at Left Lower Leg, High, Open Approach (ICD-10-PCS; principal; 2021-08-20 09:00)
PROC: 30233N1 Transfusion of Nonautologous Red Blood Cells into Peripheral Vein, Percutaneous Approach (ICD-10-PCS; 2021-09-04)
PROC: 5A1D70Z Performance of Urinary Filtration, Intermittent, Less than 6 Hours Per Day (ICD-10-PCS; 2021-09-07)
PROC: 5A1D70Z Performance of Urinary Filtration, Intermittent, Less than 6 Hours Per Day (ICD-10-PCS; 2021-09-09)
DX: T81.49XA Infection following a procedure, other surgical site, initial encounter (principal); E11.22 Type 2 diabetes mellitus with diabetic chronic kidney disease; I13.2 Hypertensive heart and chronic kidney disease with heart failure and with stage 5 chronic kidney disease, or end stage renal disease; N18.6 End stage renal disease; Z99.2 Dependence on renal dialysis; E78.5 Hyperlipidemia, unspecified; Z79.4 Long term (current) use of insulin; I50.32 Chronic diastolic (congestive) heart failure; E11.40 Type 2 diabetes mellitus with diabetic neuropathy, unspecified; E11.52 Type 2 diabetes mellitus with diabetic peripheral angiopathy with gangrene; K76.0 Fatty (change of) liver, not elsewhere classified; E88.09 Other disorders of plasma-protein metabolism, not elsewhere classified; Y83.8 Other surgical procedures as the cause of abnormal reaction of the patient, or of later complication, without mention of misadventure at the time of the procedure; E66.01 Morbid (severe) obesity due to excess calories; M10.9 Gout, unspecified; D63.1 Anemia in chronic kidney disease; G47.30 Sleep apnea, unspecified; K59.00 Constipation, unspecified; K92.1 Melena; Z68.42 Body mass index [BMI] 45.0-49.9, adult; Z86.16 Personal history of COVID-19; L97.829 Non-pressure chronic ulcer of other part of left lower leg with unspecified severity; K25.9 Gastric ulcer, unspecified as acute or chronic, without hemorrhage or perforation; J45.909 Unspecified asthma, uncomplicated; D62 Acute posthemorrhagic anemia; E87.5 Hyperkalemia; E03.9 Hypothyroidism, unspecified
CPT/HCPCS: 36415; 36430; 36511; 36600; 71045-TC-FY; 73610-TC-LT-FY; 73630-TC-LT; 80048; 80053; 82272; 82803; 82962; 83540; 83550; 83605; 83735; 84100; 85025; 85027; 85384; 85610; 85730; 86803; 86850; 86900; 86901; 86922; 87040; 87340; 88305-TC; 88307-TC; 88311-TC; 93005; 93010; 94760; 97116-GP; 97161-GP; 99285-25; C9803-CS; G0463-25; G0480; J0885; J1756; P9038; P9058; Q5106; U0003; U0005

== ENCOUNTER 2022-02-18 04:12 | Day surgery (SDC) | payer OTHER ==
[2022-02-17 11:37] VITALS: BMI 18.1
[2022-02-18 08:32] LABS: HEMATOCRIT 34.9 % (35.4-49); HEMOGLOBIN 10.9 GM/dL (11.7-16.9); MCH 29.7 pg (25.7-33.7); MCHC 31.3 g/dl (32.0-35.9); MEAN CELL VOLUME 95.1 fl (80-96); MEAN PLT VOLUME 8.7 fl (7.5-11.1); PLATELET COUNT 161 10^3/uL (134-434); RBC 3.67 M/mm3 (4.00-5.60); RDW 17.9 % (11.9-15.9); WHITE BLOOD COUNT 4.7 K/mm3 (4.0-10.0)
[2022-02-18] MEDS ORDERED: HEPARIN NA (PORCINE) 5,000 UNITS/ML 1ML VIAL ONE ×2 (08:46→10:09)
[2022-02-18] MEDS ORDERED: LIDOCAINE HCL 1%, 10 MG/ML (20ML VIAL) ONE (08:47)
[2022-02-18 08:52] LABS: CALCIUM 9.2 mg/dL (8.5-10.1)
[2022-02-18 08:53] LABS: ALBUMIN 3.1 g/dl (3.4-5.0); BLOOD UREA NITROGEN 38.9 mg/dL (7-18)
[2022-02-18 08:56] LABS: CREATININE 5.2 mg/dL (0.55-1.3)
[2022-02-18 08:57] LABS: BILIRUBIN,TOTAL 0.8 mg/dL (0.2-1); TOT PROT 8.2 g/dl (6.4-8.2)
[2022-02-18] MEDS ORDERED: KETAMINE HCL 200 MG/20 ML VIAL ONE (10:09)
[2022-02-18] MEDS ORDERED: MIDAZOLAM HCL 2 MG/2 ML SINGLE DOSE VIAL ONE (10:41)
[2022-02-18] MEDS ORDERED: ceFAZolin SODIUM 1 GM VIAL IVPB ONE (10:45)
[2022-02-18] MEDS ORDERED: ceFAZolin SODIUM 1 GM VIAL ONE (10:54)
[2022-02-18] MEDS ORDERED: LIDOCAINE 1% P/F 10 MG/ML VIAL INF ONE (11:10)
[2022-02-18] MEDS ORDERED: oxyCODONE HCL 5 MG TABLET PO PRN ×2 (11:47)
[2022-02-18] MEDS ORDERED: ONDANSETRON 4 MG/2 ML VIAL IVPUSH PRN (11:47)
[2022-02-18] MEDS ORDERED: SODIUM CHLORIDE 1,000 ML IV SCH (12:00)
[2022-02-18 12:51] VITALS: RESP 20; TEMP 98.2
[2022-02-18 13:57] VITALS: BP 120/72; PULSE 98
== END 2022-02-18 14:40 | disposition home or self-care (01) ==
LOC: JASU-SURG 04:12
PROVIDERS: ATTEND Surgery Vascular Surgery
PROC: 05WY3JZ Revision of Synthetic Substitute in Upper Vein, Percutaneous Approach (ICD-10-PCS; principal; 2022-02-18 10:30)
DX: T82.858A Stenosis of other vascular prosthetic devices, implants and grafts, initial encounter (principal); I12.0 Hypertensive chronic kidney disease with stage 5 chronic kidney disease or end stage renal disease; N18.6 End stage renal disease; Z99.2 Dependence on renal dialysis
CPT/HCPCS: 36415; 76000-TC-FY; 80053; 82962; 85027; 94760; J1644

== ENCOUNTER 2022-04-28 07:17 | Observation (INO) | payer OTHER ==
[2022-04-28 08:21] VITALS: BMI 43.0
[2022-04-28 09:10] LABS: BASO % 0.6 % (0-2.0); EOS % 6.9 % (0-4.5); HEMATOCRIT 33.6 % (35.4-49); HEMOGLOBIN 10.7 GM/dL (11.7-16.9); LYMPH % 12.4 % (8-40); MCH 30.1 pg (25.7-33.7); MCHC 31.7 g/dl (32.0-35.9); MEAN CELL VOLUME 94.8 fl (80-96); MEAN PLT VOLUME 8.9 fl (7.5-11.1); MONO % 8.9 % (3.8-10.2); NEUT % 71.2 % (42.8-82.8); PLATELET COUNT 132 10^3/uL (134-434); RBC 3.54 M/mm3 (4.00-5.60); RDW 17.4 % (11.9-15.9); WHITE BLOOD COUNT 6.4 K/mm3 (4.0-10.0)
[2022-04-28 09:22] LABS: CHLORIDE 100 mmol/L (98-107); SODIUM 139 mmol/L (136-145)
[2022-04-28 09:24] LABS: CALCIUM 8.5 mg/dL (8.5-10.1)
[2022-04-28 09:25] LABS: ANION GAP 12 MMOL/L (8-16); CO2 27 mmol/L (21-32); GLUCOSE,RANDOM 163 mg/dL (74-106)
[2022-04-28 09:26] LABS: BLOOD UREA NITROGEN 59.9 mg/dL (7-18); LIPASE 27 U/L (73-393)
[2022-04-28 09:28] LABS: PHOSPHOROUS 8.9 mg/dL (2.5-4.9); SGOT/AST 17 U/L (15-37); SGPT/ALT 33 U/L (13-61)
[2022-04-28 09:29] LABS: BILIRUBIN,TOTAL 0.8 mg/dL (0.2-1); TOT PROT 7.8 g/dl (6.4-8.2)
[2022-04-28 09:30] LABS: ALK PHOS 230 U/L (45-117)
[2022-04-28 10:44] LABS: CREATININE 7.7 mg/dL (0.55-1.3)
[2022-04-28] MEDS ORDERED: ACETAMINOPHEN 1000 MG/100 ML BAG IVPB ONE (10:58)
[2022-04-28] MEDS ORDERED: ACETAMINOPHEN INJECTION 100 ML IVPB ONE (11:16)
[2022-04-28] MEDS ORDERED: ASPIRIN 325 MG TABLET PO ONE (12:19)
[2022-04-28] MEDS ORDERED: ASPIRIN 325 MG TABLET ONE (13:05)
[2022-04-28] MEDS ORDERED: SODIUM CHLORIDE 250 ML IV PRN (13:48)
[2022-04-28] MEDS ORDERED: PATIENT'S OWN MEDICATION (NON-FORMULARY) (Oxycodone Hcl/Acetaminophen [Oxycodone-Acetamino PO PRN (17:49)
[2022-04-28] MEDS ORDERED: ACETAMINOPHEN 325 MG TABLET (FP) PO PRN ×3 (17:52→19:26)
[2022-04-28] MEDS ORDERED: ATORVASTATIN CA 40 MG TABLET (FP) PO SCH (22:00)
[2022-04-28] MEDS ORDERED: INSULIN (LEVEMIR) 100 UNITS/ML UNITS SQ SCH (22:00)
[2022-04-28] MEDS: INSULIN SLIDING SCALE (NOVOLOG) 1 VIAL SQ SCH (23:31)
[2022-04-28] MEDS: GABAPENTIN 100 MG CAPSULE PO SCH (23:32)
[2022-04-28] MEDS: FERROUS SO4 325 MG TABLET (FP) PO SCH (23:32)
[2022-04-28] MEDS: SODIUM BICARBONATE 650 MG TABLET PO SCH (23:32)
[2022-04-28] MEDS: HEPARIN NA (PORCINE) 5,000 UNITS/ML 1ML VIAL SQ SCH (23:33)
[2022-04-28] MEDS: oxyCODONE HCL 5 MG TABLET PO PRN (23:34)
[2022-04-28] MEDS: tiZANidine HCL 2 MG TABLET PO SCH (23:39)
[2022-04-28] MEDS: POLYETHYLENE GLYCOL (HEALTHYLAX) 3350 17 GM PACKET PO SCH (23:40)
[2022-04-29] MEDS: SODIUM BICARBONATE 650 MG TABLET PO SCH ×2 (06:14→14:03)
[2022-04-29] MEDS: HEPARIN NA (PORCINE) 5,000 UNITS/ML 1ML VIAL SQ SCH ×2 (06:14→14:03)
[2022-04-29] MEDS: tiZANidine HCL 2 MG TABLET PO SCH ×2 (06:15→14:04)
[2022-04-29] MEDS: INSULIN SLIDING SCALE (NOVOLOG) 1 VIAL SQ SCH ×3 (06:15→17:00)
[2022-04-29] MEDS ORDERED: LEVOTHYROXINE NA 25 MCG TABLET (FP) PO SCH (07:00)
[2022-04-29 09:14] LABS: BASO % 0.8 % (0-2.0); EOS % 8.2 % (0-4.5); HEMATOCRIT 33.5 % (35.4-49); HEMOGLOBIN 10.3 GM/dL (11.7-16.9); LYMPH % 15.6 % (8-40); MCH 29.7 pg (25.7-33.7); MCHC 30.8 g/dl (32.0-35.9); MEAN CELL VOLUME 96.1 fl (80-96); MEAN PLT VOLUME 9.2 fl (7.5-11.1); MONO % 8.8 % (3.8-10.2); NEUT % 66.6 % (42.8-82.8); PLATELET COUNT 131 10^3/uL (134-434); RBC 3.48 M/mm3 (4.00-5.60); RDW 17.8 % (11.9-15.9); WHITE BLOOD COUNT 5.2 K/mm3 (4.0-10.0)
[2022-04-29] MEDS: GABAPENTIN 100 MG CAPSULE PO SCH (09:14)
[2022-04-29] MEDS: FERROUS SO4 325 MG TABLET (FP) PO SCH (09:14)
[2022-04-29] MEDS: POLYETHYLENE GLYCOL (HEALTHYLAX) 3350 17 GM PACKET PO SCH (09:14)
[2022-04-29] MEDS: CALCIUM ACETATE 667 MG CAPSULE (FP) PO SCH ×3 (09:15→17:00)
[2022-04-29] MEDS: oxyCODONE HCL 5 MG TABLET PO PRN (09:27)
[2022-04-29 09:36] LABS: CHLORIDE 101 mmol/L (98-107); SODIUM 142 mmol/L (136-145)
[2022-04-29 09:39] LABS: ANION GAP 11 MMOL/L (8-16); CALCIUM 8.9 mg/dL (8.5-10.1); CO2 30 mmol/L (21-32); GLUCOSE,RANDOM 218 mg/dL (74-106); MAGNESIUM 1.7 mg/dL (1.8-2.4)
[2022-04-29 09:40] LABS: BLOOD UREA NITROGEN 39.4 mg/dL (7-18)
[2022-04-29 09:43] LABS: CREATININE 5.7 mg/dL (0.55-1.3); PHOSPHOROUS 8.2 mg/dL (2.5-4.9)
[2022-04-29] MEDS ORDERED: MIDODRINE HCL 5 MG TABLET PO SCH (10:00)
[2022-04-29] MEDS ORDERED: EPOETIN ALFA-EPBX 4,000 UNIT/ML VIAL SQ ONE (11:02)
[2022-04-29] MEDS ORDERED: SODIUM CHLORIDE 250 ML IV PRN (11:02)
[2022-04-29 18:46] VITALS: BP 128/56; PULSE 96; RESP 19; TEMP 98.2
== END 2022-04-29 19:14 ==
LOC: JER 07:17 → UNDOADMOB 12:28 → JERBED 12:28 → INTOOBSV 12:28 → JERBED 15:54 → J4S 20:10
PROVIDERS: ADMIT Internal Medicine; ATTEND Internal Medicine
PROC: 3E033NZ Introduction of Analgesics, Hypnotics, Sedatives into Peripheral Vein, Percutaneous Approach (ICD-10-PCS; principal; 2022-04-28)
PROC: 3E013VG Introduction of Insulin into Subcutaneous Tissue, Percutaneous Approach (ICD-10-PCS; 2022-04-28)
PROC: 3E013GC Introduction of Other Therapeutic Substance into Subcutaneous Tissue, Percutaneous Approach (ICD-10-PCS; 2022-04-28)
DX: R07.89 Other chest pain (principal); E11.22 Type 2 diabetes mellitus with diabetic chronic kidney disease; I13.2 Hypertensive heart and chronic kidney disease with heart failure and with stage 5 chronic kidney disease, or end stage renal disease; I50.33 Acute on chronic diastolic (congestive) heart failure; N18.6 End stage renal disease; Z99.2 Dependence on renal dialysis; Z79.4 Long term (current) use of insulin; D64.9 Anemia, unspecified; E03.9 Hypothyroidism, unspecified; E78.5 Hyperlipidemia, unspecified; I73.9 Peripheral vascular disease, unspecified; G47.30 Sleep apnea, unspecified; J45.909 Unspecified asthma, uncomplicated; E66.01 Morbid (severe) obesity due to excess calories; Z68.41 Body mass index [BMI] 40.0-44.9, adult; I25.10 Atherosclerotic heart disease of native coronary artery without angina pectoris; E11.40 Type 2 diabetes mellitus with diabetic neuropathy, unspecified; R74.8 Abnormal levels of other serum enzymes; Z89.512 Acquired absence of left leg below knee; Z89.431 Acquired absence of right foot; Z86.718 Personal history of other venous thrombosis and embolism; Z86.14 Personal history of Methicillin resistant Staphylococcus aureus infection
CPT/HCPCS: 0241U-QW; 36415; 71045-TC-FY; 71275-TC; 80048; 80053; 82962; 83036; 83690; 83735; 84100; 84443; 84484; 85025; 86803; 87340; 93005; 93010; 96372; 96374; 99285-25; G0378; J1644; Q9967

== ENCOUNTER 2022-06-25 12:43 | Inpatient (IN) | payer OTHER ==
[2022-06-25 14:21] LABS: BASO % 0.7 % (0-2.0); EOS % 5.9 % (0-4.5); HEMATOCRIT 34.3 % (35.4-49); HEMOGLOBIN 10.8 GM/dL (11.7-16.9); LYMPH % 13.7 % (8-40); MCH 30.6 pg (25.7-33.7); MCHC 31.5 g/dl (32.0-35.9); MEAN CELL VOLUME 97.1 fl (80-96); MONO % 10.9 % (3.8-10.2); NEUT % 68.8 % (42.8-82.8); PLATELET COUNT 120 10^3/uL (134-434); RBC 3.53 M/mm3 (4.00-5.60); RDW 19.3 % (11.9-15.9); WHITE BLOOD COUNT 7.1 K/mm3 (4.0-10.0)
[2022-06-25 14:29] LABS: INR 1.52 (0.83-1.09); PROTHROMBIN TIME (PATIENT) 17.5 SEC (9.7-13.0)
[2022-06-25 14:32] LABS: ACTIVATED PTT 37.9 SECONDS (25.2-36.5)
[2022-06-25 14:51] LABS: CHLORIDE 100 mmol/L (98-107); SODIUM 134 mmol/L (136-145)
[2022-06-25 14:54] LABS: ALBUMIN 2.6 g/dl (3.4-5.0); ANION GAP 12 MMOL/L (8-16); BLOOD UREA NITROGEN 37.3 mg/dL (7-18); CO2 22 mmol/L (21-32); GLUCOSE,RANDOM 176 mg/dL (74-106); MAGNESIUM 2.1 mg/dL (1.8-2.4)
[2022-06-25 14:57] LABS: PHOSPHOROUS 6.6 mg/dL (2.5-4.9); SGOT/AST 49 U/L (15-37); SGPT/ALT 45 U/L (13-61)
[2022-06-25 14:58] LABS: BILIRUBIN,TOTAL 0.9 mg/dL (0.2-1)
[2022-06-25 14:59] LABS: TOT PROT 7.5 g/dl (6.4-8.2)
[2022-06-25 15:00] LABS: ALK PHOS 273 U/L (45-117)
[2022-06-25 15:02] LABS: CALCIUM 9.2 mg/dL (8.5-10.1)
[2022-06-25 15:36] LABS: VENOUS BASE EXCESS -4.2 mmol/L (-2-2); VENOUS O2 SATURATION 53.1 % (70-80); VENOUS PCO2 57.3 mmHg (38-52); VENOUS PH 7.238 (7.310-7.410)
[2022-06-25 16:15] LABS: ANION GAP 13 MMOL/L (8-16); BLOOD UREA NITROGEN 37.2 mg/dL (7-18); CALCIUM 9.4 mg/dL (8.5-10.1); CHLORIDE 100 mmol/L (98-107); CO2 21 mmol/L (21-32); CREATININE 6.1 mg/dL (0.55-1.3); GLUCOSE,RANDOM 167 mg/dL (74-106); SODIUM 134 mmol/L (136-145)
[2022-06-25] MEDS ORDERED: SODIUM CHLORIDE 250 ML IV PRN (20:50)
[2022-06-26] MEDS ORDERED: LIDOCAINE 2.5%/PRILOCAINE 2.5% 30 GRAM TUBE TP PRN (02:56)
[2022-06-26] MEDS ORDERED: guaiFENesin 200 MG/10 ML 10 ML UNIT-DOSE CUPS PO PRN (02:56)
[2022-06-26] MEDS ORDERED: ACETAMINOPHEN 325 MG TABLET (FP) PO PRN (03:08)
[2022-06-26 04:06] VITALS: BMI 45.4
[2022-06-26] MEDS: SODIUM BICARBONATE 650 MG TABLET PO SCH ×3 (06:46→22:16)
[2022-06-26] MEDS: INSULIN SLIDING SCALE (NOVOLOG) 1 VIAL SQ SCH ×4 (06:47→22:17)
[2022-06-26] MEDS: LEVOTHYROXINE NA 25 MCG TABLET (FP) PO SCH (06:47)
[2022-06-26] MEDS: CALCIUM ACETATE 667 MG CAPSULE (FP) PO SCH ×3 (08:02→17:24)
[2022-06-26 08:17] LABS: BASO % 0.8 % (0-2.0); EOS % 6.4 % (0-4.5); HEMATOCRIT 35.3 % (35.4-49); HEMOGLOBIN 10.9 GM/dL (11.7-16.9); LYMPH % 15.1 % (8-40); MCH 30.3 pg (25.7-33.7); MCHC 30.9 g/dl (32.0-35.9); MEAN CELL VOLUME 98.1 fl (80-96); MEAN PLT VOLUME 8.9 fl (7.5-11.1); MONO % 9.5 % (3.8-10.2); NEUT % 68.2 % (42.8-82.8); PLATELET COUNT 133 10^3/uL (134-434); WHITE BLOOD COUNT 6.2 K/mm3 (4.0-10.0)
[2022-06-26 08:50] LABS: CHLORIDE 98 mmol/L (98-107); SODIUM 134 mmol/L (136-145)
[2022-06-26 09:04] LABS: ANION GAP 12 MMOL/L (8-16); BLOOD UREA NITROGEN 47.8 mg/dL (7-18); CALCIUM 9.1 mg/dL (8.5-10.1); CO2 25 mmol/L (21-32); GLUCOSE,RANDOM 147 mg/dL (74-106)
[2022-06-26 09:09] LABS: CREATININE 7.1 mg/dL (0.55-1.3); PHOSPHOROUS 7.8 mg/dL (2.5-4.9)
[2022-06-26] MEDS: HYDROCORTISONE 1% TOPICAL CREAM 30 GM TUBE TP SCH ×2 (10:15→16:00)
[2022-06-26] MEDS: FERROUS SO4 325 MG TABLET (FP) PO SCH ×2 (10:30→22:16)
[2022-06-26] MEDS: MIDODRINE HCL 5 MG TABLET PO SCH (10:30)
[2022-06-26] MEDS: GABAPENTIN 100 MG CAPSULE PO SCH ×2 (10:31→22:16)
[2022-06-26] MEDS: oxyCODONE HCL 5 MG TABLET PO PRN ×2 (10:37→22:24)
[2022-06-26] MEDS: POLYETHYLENE GLYCOL (HEALTHYLAX) 3350 17 GM PACKET PO SCH ×2 (10:40→22:17)
[2022-06-26] MEDS: INSULIN (LEVEMIR) 100 UNITS/ML UNITS SQ SCH (22:17)
[2022-06-26] MEDS: ATORVASTATIN CA 40 MG TABLET (FP) PO SCH (22:18)
[2022-06-26] MEDS: COLLAGENASE CLOSTRIDIUM HIST. 30 GRAMS TUBE TP SCH (22:18)
[2022-06-27] MEDS: LEVOTHYROXINE NA 25 MCG TABLET (FP) PO SCH (06:03)
[2022-06-27] MEDS: SODIUM BICARBONATE 650 MG TABLET PO SCH (06:03)
[2022-06-27] MEDS: INSULIN SLIDING SCALE (NOVOLOG) 1 VIAL SQ SCH ×4 (06:03→21:44)
[2022-06-27] MEDS: oxyCODONE HCL 5 MG TABLET PO PRN ×3 (06:07→23:06)
[2022-06-27] MEDS: CALCIUM ACETATE 667 MG CAPSULE (FP) PO SCH ×3 (08:42→17:11)
[2022-06-27] MEDS: FERROUS SO4 325 MG TABLET (FP) PO SCH ×2 (09:42→21:34)
[2022-06-27] MEDS: POLYETHYLENE GLYCOL (HEALTHYLAX) 3350 17 GM PACKET PO SCH ×3 (09:42→21:42)
[2022-06-27] MEDS: GABAPENTIN 100 MG CAPSULE PO SCH ×2 (09:42→21:34)
[2022-06-27] MEDS: MIDODRINE HCL 5 MG TABLET PO SCH (09:42)
[2022-06-27] MEDS: ASPIRIN COATED 81 MG TABLET.EC PO SCH (11:16)
[2022-06-27] MEDS: RANOLAZINE E.R. 500 MG TABLET (FP) PO SCH ×2 (11:17→21:34)
[2022-06-27] MEDS: metoPROLOL SUCCINATE 25 MG TAB.SR.24H (FP) PO SCH (11:17)
[2022-06-27] MEDS: HYDROCORTISONE 1% TOPICAL CREAM 30 GM TUBE TP SCH (17:21)
[2022-06-27] MEDS: ATORVASTATIN CA 40 MG TABLET (FP) PO SCH (21:34)
[2022-06-27] MEDS: HEPARIN NA (PORCINE) 5,000 UNITS/ML 1ML VIAL SQ SCH (21:34)
[2022-06-27] MEDS: COLLAGENASE CLOSTRIDIUM HIST. 30 GRAMS TUBE TP SCH (21:43)
[2022-06-27] MEDS: INSULIN (LEVEMIR) 100 UNITS/ML UNITS SQ SCH (21:44)
[2022-06-28] MEDS: LEVOTHYROXINE NA 25 MCG TABLET (FP) PO SCH (06:07)
[2022-06-28] MEDS: INSULIN SLIDING SCALE (NOVOLOG) 1 VIAL SQ SCH ×4 (06:10→21:32)
[2022-06-28] MEDS: oxyCODONE HCL 5 MG TABLET PO PRN ×2 (07:27→21:31)
[2022-06-28] MEDS ORDERED: REGADENOSON 0.4 MG/5 ML PRE-FILLED SYRINGE IVPUSH ONE ×2 (09:25→09:45)
[2022-06-28] MEDS: CALCIUM ACETATE 667 MG CAPSULE (FP) PO SCH ×4 (10:59→18:51)
[2022-06-28] MEDS: MIDODRINE HCL 5 MG TABLET PO SCH ×2 (10:59→18:39)
[2022-06-28] MEDS: ASPIRIN COATED 81 MG TABLET.EC PO SCH (10:59)
[2022-06-28] MEDS: GABAPENTIN 100 MG CAPSULE PO SCH ×2 (10:59→21:31)
[2022-06-28] MEDS: FERROUS SO4 325 MG TABLET (FP) PO SCH ×2 (11:00→21:31)
[2022-06-28] MEDS: RANOLAZINE E.R. 500 MG TABLET (FP) PO SCH (11:00)
[2022-06-28] MEDS: HEPARIN NA (PORCINE) 5,000 UNITS/ML 1ML VIAL SQ SCH ×2 (11:00→21:30)
[2022-06-28] MEDS: metoPROLOL SUCCINATE 25 MG TAB.SR.24H (FP) PO SCH (11:00)
[2022-06-28] MEDS: POLYETHYLENE GLYCOL (HEALTHYLAX) 3350 17 GM PACKET PO SCH ×2 (11:01→21:30)
[2022-06-28] MEDS: HYDROCORTISONE 1% TOPICAL CREAM 30 GM TUBE TP SCH (11:03)
[2022-06-28 15:08] LABS: HEMATOCRIT 32.6 % (35.4-49); HEMOGLOBIN 10.2 GM/dL (11.7-16.9); MCH 30.7 pg (25.7-33.7); MCHC 31.1 g/dl (32.0-35.9); MEAN CELL VOLUME 98.5 fl (80-96); MEAN PLT VOLUME 8.7 fl (7.5-11.1); PLATELET COUNT 149 10^3/uL (134-434); RBC 3.31 M/mm3 (4.00-5.60); RDW 19.1 % (11.9-15.9); WHITE BLOOD COUNT 6.6 K/mm3 (4.0-10.0)
[2022-06-28 15:55] LABS: BLOOD UREA NITROGEN 53.3 mg/dL (7-18); CALCIUM 8.9 mg/dL (8.5-10.1)
[2022-06-28 15:59] LABS: CREATININE 6.9 mg/dL (0.55-1.3)
[2022-06-28] MEDS ORDERED: MIDODRINE HCL 5 MG TABLET PO SCH (16:30)
[2022-06-28] MEDS ORDERED: SODIUM CHLORIDE 250 ML IV PRN (16:52)
[2022-06-28] MEDS ORDERED: HEPARIN NA (PORCINE) 5,000 UNITS/ML 1ML VIAL IVPUSH ONE (17:00)
[2022-06-28] MEDS: INSULIN (LEVEMIR) 100 UNITS/ML UNITS SQ SCH (21:31)
[2022-06-28] MEDS: ATORVASTATIN CA 40 MG TABLET (FP) PO SCH (21:31)
[2022-06-29] MEDS: COLLAGENASE CLOSTRIDIUM HIST. 30 GRAMS TUBE TP SCH (00:44)
[2022-06-29] MEDS: INSULIN SLIDING SCALE (NOVOLOG) 1 VIAL SQ SCH ×2 (06:26→13:18)
[2022-06-29] MEDS: LEVOTHYROXINE NA 25 MCG TABLET (FP) PO SCH (06:26)
[2022-06-29 10:20] VITALS: RESP 18
[2022-06-29] MEDS: CALCIUM ACETATE 667 MG CAPSULE (FP) PO SCH ×2 (11:23→13:20)
[2022-06-29] MEDS: ASPIRIN COATED 81 MG TABLET.EC PO SCH (11:27)
[2022-06-29] MEDS: HEPARIN NA (PORCINE) 5,000 UNITS/ML 1ML VIAL SQ SCH (11:27)
[2022-06-29] MEDS: GABAPENTIN 100 MG CAPSULE PO SCH (11:28)
[2022-06-29] MEDS: FERROUS SO4 325 MG TABLET (FP) PO SCH (11:28)
[2022-06-29] MEDS: metoPROLOL SUCCINATE 25 MG TAB.SR.24H (FP) PO SCH (11:28)
[2022-06-29] MEDS: POLYETHYLENE GLYCOL (HEALTHYLAX) 3350 17 GM PACKET PO SCH (11:29)
[2022-06-29] MEDS: HYDROCORTISONE 1% TOPICAL CREAM 30 GM TUBE TP SCH (11:29)
[2022-06-29] MEDS: MIDODRINE HCL 5 MG TABLET PO SCH (13:05)
[2022-06-29 14:31] VITALS: BP 112/67; PULSE 96; TEMP 97.8
== END 2022-06-29 17:54 | DRG 198 ==
LOC: JER 12:43 → JERBED 13:22 → J4S 06-26 02:07
PROVIDERS: ADMIT Internal Medicine; ATTEND Internal Medicine
PROC: 5A1D70Z Performance of Urinary Filtration, Intermittent, Less than 6 Hours Per Day (ICD-10-PCS; principal; 2022-06-26)
PROC: 5A1D70Z Performance of Urinary Filtration, Intermittent, Less than 6 Hours Per Day (ICD-10-PCS; 2022-06-28)
DX: I25.119 Atherosclerotic heart disease of native coronary artery with unspecified angina pectoris (principal); E78.5 Hyperlipidemia, unspecified; K76.0 Fatty (change of) liver, not elsewhere classified; I27.20 Pulmonary hypertension, unspecified; E03.9 Hypothyroidism, unspecified; I95.3 Hypotension of hemodialysis; E11.42 Type 2 diabetes mellitus with diabetic polyneuropathy; E78.00 Pure hypercholesterolemia, unspecified; E66.01 Morbid (severe) obesity due to excess calories; Z68.41 Body mass index [BMI] 40.0-44.9, adult; E11.51 Type 2 diabetes mellitus with diabetic peripheral angiopathy without gangrene; I13.2 Hypertensive heart and chronic kidney disease with heart failure and with stage 5 chronic kidney disease, or end stage renal disease; E11.22 Type 2 diabetes mellitus with diabetic chronic kidney disease; N18.6 End stage renal disease; I50.33 Acute on chronic diastolic (congestive) heart failure; Z99.2 Dependence on renal dialysis; D64.9 Anemia, unspecified; D69.6 Thrombocytopenia, unspecified; E87.70 Fluid overload, unspecified; M10.9 Gout, unspecified; E11.40 Type 2 diabetes mellitus with diabetic neuropathy, unspecified; Z89.611 Acquired absence of right leg above knee; Z89.612 Acquired absence of left leg above knee
CPT/HCPCS: 36415; 71045-TC-FY; 78452-TC; 80048; 80053; 82803; 82962; 83735; 84100; 84443; 84484; 85025; 85027; 85610; 85730; 86803; 87340; 93005; 93010; 93017; 93306-TC; 93971-TC; 99285-25; A9502; C9803-CS; J1644; J2785; U0003; U0005

== ENCOUNTER 2022-08-13 17:23 | Emergency (ER) | payer OTHER ==
[2022-08-13 17:47] VITALS: RESP 20; TEMP 97.8; BMI 39.4
[2022-08-13] MEDS ORDERED: SULFAMETHOXAZOLE/TRIMETHOPRIM 800MG/160MG D.S. TABLET PO ONE (19:47)
[2022-08-13] MEDS ORDERED: SULFAMETHOXAZOLE/TRIMETHOPRIM 800MG/160MG D.S. TABLET ONE (20:01)
[2022-08-13 23:13] VITALS: BP 114/74; PULSE 85
== END 2022-08-13 23:22 ==
LOC: JER 17:23
DX: L03.012 Cellulitis of left finger (principal)
CPT/HCPCS: 99283-25

== ENCOUNTER 2022-08-20 08:57 | Inpatient (IN) | payer OTHER ==
[2022-08-20 10:12] LABS: BASO % 0.5 % (0-2.0); EOS % 4.4 % (0-4.5); HEMATOCRIT 38.2 % (35.4-49); HEMOGLOBIN 12.2 GM/dL (11.7-16.9); LYMPH % 10.5 % (8-40); MCH 30.9 pg (25.7-33.7); MCHC 31.9 g/dl (32.0-35.9); MEAN CELL VOLUME 96.8 fl (80-96); MEAN PLT VOLUME 8.4 fl (7.5-11.1); MONO % 10.7 % (3.8-10.2); NEUT % 73.9 % (42.8-82.8); PLATELET COUNT 116 10^3/uL (134-434); RBC 3.95 M/mm3 (4.00-5.60); RDW 17.8 % (11.9-15.9)
[2022-08-20 10:17] LABS: INR 1.33 (0.83-1.09); PROTHROMBIN TIME (PATIENT) 15.4 SEC (9.7-13.0)
[2022-08-20 10:20] LABS: ACTIVATED PTT 40.7 SECONDS (25.2-36.5)
[2022-08-20 11:01] VITALS: BMI 42.3
[2022-08-20 11:09] LABS: CALCIUM 9.4 mg/dL (8.5-10.1)
[2022-08-20 11:10] LABS: ALBUMIN 3.1 g/dl (3.4-5.0); BLOOD UREA NITROGEN 49.4 mg/dL (7-18)
[2022-08-20 11:13] LABS: CREATININE 5.4 mg/dL (0.55-1.3)
[2022-08-20 11:14] LABS: TOT PROT 8.1 g/dl (6.4-8.2)
[2022-08-20] MEDS ORDERED: LIDOCAINE 2.5%/PRILOCAINE 2.5% 30 GRAM TUBE TP PRN (14:59)
[2022-08-20] MEDS ORDERED: TIZANIDINE HCL 2 MG TABLET PO PRN (15:00)
[2022-08-20] MEDS ORDERED: ACETAMINOPHEN 325 MG TABLET (FP) PO PRN (15:02)
[2022-08-20] MEDS: INSULIN SLIDING SCALE (NOVOLOG) 1 VIAL SQ SCH ×2 (16:38→21:59)
[2022-08-20] MEDS: CALCIUM ACETATE 667 MG CAPSULE (FP) PO SCH (16:38)
[2022-08-20] MEDS: SODIUM BICARBONATE 650 MG TABLET PO SCH (16:38)
[2022-08-20] MEDS: MIDODRINE HCL 5 MG TABLET PO SCH (17:58)
[2022-08-20] MEDS ORDERED: SODIUM CHLORIDE 250 ML IV PRN (19:22)
[2022-08-20] MEDS: COLLAGENASE CLOSTRIDIUM HIST. 30 GRAMS TUBE TP SCH (21:57)
[2022-08-20] MEDS: POLYETHYLENE GLYCOL (HEALTHYLAX) 3350 17 GM PACKET PO SCH (21:57)
[2022-08-20] MEDS: GABAPENTIN 100 MG CAPSULE PO SCH (21:58)
[2022-08-20] MEDS: ATORVASTATIN CA 40 MG TABLET (FP) PO SCH (21:58)
[2022-08-20] MEDS: INSULIN (LEVEMIR) 100 UNITS/ML UNITS SQ SCH (21:58)
[2022-08-20] MEDS: FERROUS SO4 325 MG TABLET (FP) PO SCH (21:58)
[2022-08-20] MEDS: HEPARIN NA (PORCINE) 5,000 UNITS/ML 1ML VIAL SQ SCH (21:58)
[2022-08-20] MEDS ORDERED: FERROUS SO4 325 MG TABLET (FP) PO SCH (22:00)
[2022-08-21] MEDS: LEVOTHYROXINE NA 25 MCG TABLET (FP) PO SCH (06:13)
[2022-08-21] MEDS: SODIUM BICARBONATE 650 MG TABLET PO SCH ×2 (06:13→11:21)
[2022-08-21] MEDS: INSULIN SLIDING SCALE (NOVOLOG) 1 VIAL SQ SCH ×4 (06:17→21:55)
[2022-08-21] MEDS: CALCIUM ACETATE 667 MG CAPSULE (FP) PO SCH ×3 (08:02→17:35)
[2022-08-21] MEDS: POLYETHYLENE GLYCOL (HEALTHYLAX) 3350 17 GM PACKET PO SCH ×2 (10:04→21:59)
[2022-08-21] MEDS: GABAPENTIN 100 MG CAPSULE PO SCH ×2 (10:04→21:47)
[2022-08-21] MEDS: HEPARIN NA (PORCINE) 5,000 UNITS/ML 1ML VIAL SQ SCH ×2 (10:04→22:58)
[2022-08-21] MEDS: FERROUS SO4 325 MG TABLET (FP) PO SCH ×2 (10:04→21:47)
[2022-08-21] MEDS ORDERED: BISACODYL 10 MG SUPP.RECT PR PRN (10:47)
[2022-08-21] MEDS: HYDROCORTISONE 1% TOPICAL CREAM 30 GM TUBE TP SCH (10:49)
[2022-08-21] MEDS: oxyCODONE HCL 5 MG TABLET PO PRN ×2 (12:31→21:48)
[2022-08-21] MEDS: ACETAMINOPHEN 325 MG TABLET (FP) PO PRN ×2 (12:33→21:47)
[2022-08-21] MEDS: MIDODRINE HCL 5 MG TABLET PO SCH ×2 (14:40→18:41)
[2022-08-21] MEDS: metoPROLOL SUCCINATE 25 MG TAB.SR.24H (FP) PO SCH (18:40)
[2022-08-21] MEDS: ATORVASTATIN CA 40 MG TABLET (FP) PO SCH (21:47)
[2022-08-21] MEDS: INSULIN (LEVEMIR) 100 UNITS/ML UNITS SQ SCH (21:54)
[2022-08-21] MEDS: COLLAGENASE CLOSTRIDIUM HIST. 30 GRAMS TUBE TP SCH (21:59)
[2022-08-22] MEDS: LEVOTHYROXINE NA 25 MCG TABLET (FP) PO SCH (06:10)
[2022-08-22] MEDS: INSULIN SLIDING SCALE (NOVOLOG) 1 VIAL SQ SCH ×4 (06:10→21:48)
[2022-08-22] MEDS: CALCIUM ACETATE 667 MG CAPSULE (FP) PO SCH ×3 (08:49→17:18)
[2022-08-22] MEDS: MIDODRINE HCL 5 MG TABLET PO SCH ×2 (09:43→17:18)
[2022-08-22] MEDS: metoPROLOL SUCCINATE 25 MG TAB.SR.24H (FP) PO SCH (09:43)
[2022-08-22] MEDS: FERROUS SO4 325 MG TABLET (FP) PO SCH ×2 (09:44→21:43)
[2022-08-22] MEDS: HEPARIN NA (PORCINE) 5,000 UNITS/ML 1ML VIAL SQ SCH ×2 (09:44→21:43)
[2022-08-22] MEDS: GABAPENTIN 100 MG CAPSULE PO SCH ×2 (09:44→21:43)
[2022-08-22] MEDS: oxyCODONE HCL 5 MG TABLET PO PRN ×2 (09:48→21:53)
[2022-08-22] MEDS: POLYETHYLENE GLYCOL (HEALTHYLAX) 3350 17 GM PACKET PO SCH ×2 (09:57→21:43)
[2022-08-22 11:13] LABS: HEMATOCRIT 36.5 % (35.4-49); HEMOGLOBIN 11.8 GM/dL (11.7-16.9); MCH 30.9 pg (25.7-33.7); MCHC 32.2 g/dl (32.0-35.9); MEAN CELL VOLUME 96.1 fl (80-96); MEAN PLT VOLUME 8.4 fl (7.5-11.1); PLATELET COUNT 129 10^3/uL (134-434); WHITE BLOOD COUNT 4.8 K/mm3 (4.0-10.0)
[2022-08-22] MEDS: HYDROCORTISONE 1% TOPICAL CREAM 30 GM TUBE TP SCH (11:25)
[2022-08-22 11:28] LABS: CALCIUM 9.2 mg/dL (8.5-10.1)
[2022-08-22 11:29] LABS: ALBUMIN 2.9 g/dl (3.4-5.0); BLOOD UREA NITROGEN 43.4 mg/dL (7-18)
[2022-08-22 11:33] LABS: BILIRUBIN,TOTAL 0.8 mg/dL (0.2-1); TOT PROT 7.6 g/dl (6.4-8.2)
[2022-08-22] MEDS ORDERED: SODIUM CHLORIDE 250 ML IV PRN (11:52)
[2022-08-22 19:20] LABS: HIV INTERPRETATION NEGATIVE (NEGATIVE)
[2022-08-22] MEDS: ATORVASTATIN CA 40 MG TABLET (FP) PO SCH (21:43)
[2022-08-22] MEDS: INSULIN (LEVEMIR) 100 UNITS/ML UNITS SQ SCH (21:43)
[2022-08-22] MEDS: COLLAGENASE CLOSTRIDIUM HIST. 30 GRAMS TUBE TP SCH (21:44)
[2022-08-23] MEDS: INSULIN SLIDING SCALE (NOVOLOG) 1 VIAL SQ SCH ×4 (06:22→22:38)
[2022-08-23] MEDS: LEVOTHYROXINE NA 25 MCG TABLET (FP) PO SCH (06:32)
[2022-08-23] MEDS: metoPROLOL SUCCINATE 25 MG TAB.SR.24H (FP) PO SCH (09:05)
[2022-08-23] MEDS: CALCIUM ACETATE 667 MG CAPSULE (FP) PO SCH ×3 (09:05→16:53)
[2022-08-23] MEDS: MIDODRINE HCL 5 MG TABLET PO SCH ×2 (09:05→17:39)
[2022-08-23] MEDS: FERROUS SO4 325 MG TABLET (FP) PO SCH ×2 (09:07→22:41)
[2022-08-23] MEDS: GABAPENTIN 100 MG CAPSULE PO SCH ×2 (09:07→22:42)
[2022-08-23] MEDS: HEPARIN NA (PORCINE) 5,000 UNITS/ML 1ML VIAL SQ SCH ×2 (09:07→22:39)
[2022-08-23 10:20] LABS: HEMATOCRIT 36.7 % (35.4-49); HEMOGLOBIN 11.6 GM/dL (11.7-16.9); MCH 30.7 pg (25.7-33.7); MCHC 31.6 g/dl (32.0-35.9); MEAN CELL VOLUME 97.2 fl (80-96); MEAN PLT VOLUME 8.9 fl (7.5-11.1); PLATELET COUNT 142 10^3/uL (134-434); RBC 3.78 M/mm3 (4.00-5.60); RDW 17.7 % (11.9-15.9); WHITE BLOOD COUNT 5.8 K/mm3 (4.0-10.0)
[2022-08-23] MEDS: POLYETHYLENE GLYCOL (HEALTHYLAX) 3350 17 GM PACKET PO SCH ×2 (10:28→22:41)
[2022-08-23] MEDS: HYDROCORTISONE 1% TOPICAL CREAM 30 GM TUBE TP SCH (10:29)
[2022-08-23 10:42] LABS: CHLORIDE 97 mmol/L (98-107); SODIUM 133 mmol/L (136-145)
[2022-08-23 10:43] LABS: CALCIUM 9.6 mg/dL (8.5-10.1)
[2022-08-23 10:44] LABS: ANION GAP 9 MMOL/L (8-16); CO2 26 mmol/L (21-32); GLUCOSE,RANDOM 182 mg/dL (74-106)
[2022-08-23 12:23] LABS: CREATININE 7.7 mg/dL (0.55-1.3)
[2022-08-23] MEDS: oxyCODONE HCL 5 MG TABLET PO PRN (16:53)
[2022-08-23] MEDS: INSULIN (LEVEMIR) 100 UNITS/ML UNITS SQ SCH (22:39)
[2022-08-23] MEDS: COLLAGENASE CLOSTRIDIUM HIST. 30 GRAMS TUBE TP SCH (22:42)
[2022-08-23] MEDS: ATORVASTATIN CA 40 MG TABLET (FP) PO SCH (22:42)
[2022-08-24] MEDS: INSULIN SLIDING SCALE (NOVOLOG) 1 VIAL SQ SCH ×4 (06:42→21:25)
[2022-08-24] MEDS: LEVOTHYROXINE NA 25 MCG TABLET (FP) PO SCH (06:45)
[2022-08-24] MEDS: metoPROLOL SUCCINATE 25 MG TAB.SR.24H (FP) PO SCH (09:54)
[2022-08-24] MEDS: CALCIUM ACETATE 667 MG CAPSULE (FP) PO SCH ×3 (09:54→17:56)
[2022-08-24] MEDS: MIDODRINE HCL 5 MG TABLET PO SCH ×2 (09:55→17:26)
[2022-08-24] MEDS: FERROUS SO4 325 MG TABLET (FP) PO SCH ×2 (09:55→21:22)
[2022-08-24] MEDS: HEPARIN NA (PORCINE) 5,000 UNITS/ML 1ML VIAL SQ SCH ×2 (09:55→21:17)
[2022-08-24] MEDS: GABAPENTIN 100 MG CAPSULE PO SCH ×2 (09:55→21:22)
[2022-08-24] MEDS: POLYETHYLENE GLYCOL (HEALTHYLAX) 3350 17 GM PACKET PO SCH ×2 (10:04→21:25)
[2022-08-24] MEDS ORDERED: EPOETIN ALFA-EPBX 3,000 UNIT/ML VIAL SQ ONE (14:11)
[2022-08-24] MEDS ORDERED: SODIUM CHLORIDE 250 ML IV PRN (14:11)
[2022-08-24] MEDS: HYDROCORTISONE 1% TOPICAL CREAM 30 GM TUBE TP SCH (17:27)
[2022-08-24] MEDS ORDERED: INSULIN (LEVEMIR) 100 UNITS/ML UNITS SQ ONE (19:11)
[2022-08-24] MEDS: ATORVASTATIN CA 40 MG TABLET (FP) PO SCH (21:22)
[2022-08-24] MEDS: COLLAGENASE CLOSTRIDIUM HIST. 30 GRAMS TUBE TP SCH (21:23)
[2022-08-24] MEDS: INSULIN (LEVEMIR) 100 UNITS/ML UNITS SQ SCH (21:24)
[2022-08-24] MEDS ORDERED: oxyCODONE HCL 5 MG TABLET PO PRN (21:57)
[2022-08-25] MEDS: LEVOTHYROXINE NA 25 MCG TABLET (FP) PO SCH (06:21)
[2022-08-25] MEDS: INSULIN SLIDING SCALE (NOVOLOG) 1 VIAL SQ SCH (06:27)
[2022-08-25] MEDS: MIDODRINE HCL 5 MG TABLET PO SCH (09:08)
[2022-08-25] MEDS: HEPARIN NA (PORCINE) 5,000 UNITS/ML 1ML VIAL SQ SCH (10:36)
[2022-08-25] MEDS ORDERED: TRIAMCINOLONE ACET 0.1% CREAM 15 GM TUBE TP SCH (10:45)
[2022-08-25 11:35] VITALS: RESP 18
[2022-08-25 15:33] VITALS: BP 108/54; PULSE 68; TEMP 97.9
== END 2022-08-25 17:32 | disposition short-term general hospital (02) | DRG 198 ==
LOC: JER 08:57 → JERBED 14:27 → J4S 15:43 → OBSVTOIN 08-24 11:07
PROVIDERS: ADMIT Internal Medicine; ATTEND Internal Medicine
PROC: 5A1D70Z Performance of Urinary Filtration, Intermittent, Less than 6 Hours Per Day (ICD-10-PCS; principal; 2022-08-21)
PROC: 5A1D70Z Performance of Urinary Filtration, Intermittent, Less than 6 Hours Per Day (ICD-10-PCS; 2022-08-23)
PROC: 5A1D70Z Performance of Urinary Filtration, Intermittent, Less than 6 Hours Per Day (ICD-10-PCS; 2022-08-25)
DX: I25.110 Atherosclerotic heart disease of native coronary artery with unstable angina pectoris (principal); E78.5 Hyperlipidemia, unspecified; E11.51 Type 2 diabetes mellitus with diabetic peripheral angiopathy without gangrene; I44.1 Atrioventricular block, second degree; I05.0 Rheumatic mitral stenosis; J45.909 Unspecified asthma, uncomplicated; E11.42 Type 2 diabetes mellitus with diabetic polyneuropathy; E03.9 Hypothyroidism, unspecified; M10.9 Gout, unspecified; E66.01 Morbid (severe) obesity due to excess calories; Z68.41 Body mass index [BMI] 40.0-44.9, adult; K76.0 Fatty (change of) liver, not elsewhere classified; I45.10 Unspecified right bundle-branch block; D64.9 Anemia, unspecified; D69.6 Thrombocytopenia, unspecified; I13.2 Hypertensive heart and chronic kidney disease with heart failure and with stage 5 chronic kidney disease, or end stage renal disease; E11.22 Type 2 diabetes mellitus with diabetic chronic kidney disease; N18.6 End stage renal disease; I50.32 Chronic diastolic (congestive) heart failure; Z99.2 Dependence on renal dialysis; Z89.512 Acquired absence of left leg below knee
CPT/HCPCS: 0241U-QW; 36415; 71045-TC-FY; 80048; 80053; 82550; 82962; 83880; 84484; 85025; 85027; 85610; 85730; 86803; 87040; 87081; 87340; 87389; 93005; 93010; 99285-25; G0378; J1644

== ENCOUNTER 2022-10-01 08:51 | Inpatient (IN) | payer OTHER ==
[2022-10-01 10:20] LABS: VENOUS BASE EXCESS -2.4 mmol/L (-2-2); VENOUS O2 SATURATION 81.1 % (70-80); VENOUS PCO2 64.4 mmHg (38-52); VENOUS PH 7.226 (7.310-7.410)
[2022-10-01 10:24] LABS: INR 1.53 (0.83-1.09); PROTHROMBIN TIME (PATIENT) 17.7 SEC (9.7-13.0)
[2022-10-01 10:27] LABS: ACTIVATED PTT 41.5 SECONDS (25.2-36.5)
[2022-10-01 10:30] LABS: BASO % 0.4 % (0-2.0); EOS % 1.8 % (0-4.5); HEMATOCRIT 31.6 % (35.4-49); HEMOGLOBIN 10.1 GM/dL (11.7-16.9); LYMPH % 8.8 % (8-40); MCH 32.3 pg (25.7-33.7); MCHC 32.1 g/dl (32.0-35.9); MEAN CELL VOLUME 100.6 fl (80-96); MONO % 11.5 % (3.8-10.2); NEUT % 77.5 % (42.8-82.8); PLATELET COUNT 140 10^3/uL (134-434); RBC 3.14 M/mm3 (4.00-5.60); RDW 18.6 % (11.9-15.9); WHITE BLOOD COUNT 7.8 K/mm3 (4.0-10.0)
[2022-10-01 10:42] LABS: ALBUMIN 2.6 g/dl (3.4-5.0); BLOOD UREA NITROGEN 40.8 mg/dL (7-18); CALCIUM 8.5 mg/dL (8.5-10.1); MAGNESIUM 2.2 mg/dL (1.8-2.4)
[2022-10-01 10:45] LABS: CREATININE 4.4 mg/dL (0.55-1.3)
[2022-10-01 10:46] LABS: PHOSPHOROUS 6.7 mg/dL (2.5-4.9); TOT PROT 7.5 g/dl (6.4-8.2)
[2022-10-01] MEDS ORDERED: VANCOMYCIN 1 GM in D5W (PRE-DOCKED) 1,000 MG/250 ML (RESTRICTED TO ID ONLY IVPB ONE (12:47)
[2022-10-01] MEDS ORDERED: PIPERACILLIN/TAZOB 2.25 GM 2.25 GM in DEXTROSE 5%-WATER - 50 ML IVPB SCH ×2 (13:00→13:30)
[2022-10-01] MEDS ORDERED: PIPERACILLIN/TAZOB 2.25 GM 2.25 GM/50 ML BAG IVPB ONE (13:35)
[2022-10-01] MEDS ORDERED: VANCOMYCIN/WATER 2 GRAMS 2,000 MG/400 ML PIGGYBACK IVPB ONE (13:45)
[2022-10-01] MEDS ORDERED: SODIUM CHLORIDE 250 ML IV PRN ×2 (14:13→14:19)
[2022-10-01 14:38] LABS: ARTERIAL BLD GAS O2 SATURATION 96.1 % (95-98); ARTERIAL BLOOD GAS BASE EXCESS -3.5 mmol/L (-2-2); ARTERIAL BLOOD GAS pH 7.217 (7.350-7.450)
[2022-10-01 14:42] LABS: ALLENS TEST POSITIVE
[2022-10-01] MEDS: MUPIROCIN 2% TOPICAL OINTMENT FOR DECOLONIZATION NS SCH ×2 (14:42→21:39)
[2022-10-01] MEDS: ALBUMIN HUMAN 25% 12.5 GM/50 ML VIAL IV SCH ×3 (16:55→19:45)
[2022-10-01] MEDS: NOREPINEPHRINE 0.9 % NACL 8 MG/250 ML BAG IVPB SCH (17:13)
[2022-10-01] MEDS: ASPIRIN 81 MG CHEWABLE TABLETS PO ONE ×2 (17:25→18:33)
[2022-10-01] MEDS ORDERED: CLOPIDOGREL BISULFATE 300 MG TABLET PO ONE (18:30)
[2022-10-01] MEDS ORDERED: MIDODRINE HCL 5 MG TABLET PO SCH (18:30)
[2022-10-01] MEDS: PANTOPRAZOLE SODIUM 40 MG VIAL IVPUSH SCH (18:34)
[2022-10-01] MEDS ORDERED: ALBUTEROL SO4 HFA INHALER IH PRN (19:27)
[2022-10-01] MEDS: SEVELAMER CARBONATE 800 MG TAB (FP) PO SCH (21:37)
[2022-10-01] MEDS: TRIAMCINOLONE ACET 0.1% CREAM 15 GM TUBE TP SCH (21:38)
[2022-10-01] MEDS: PIPERACILLIN/TAZOB 2.25 GM 2.25 GM in DEXTROSE 5%-WATER - 50 ML IVPB SCH (21:38)
[2022-10-01] MEDS: HEPARIN NA (PORCINE) 5,000 UNITS/ML 1ML VIAL SQ SCH (21:39)
[2022-10-01] MEDS: POLYETHYLENE GLYCOL (HEALTHYLAX) 3350 17 GM PACKET PO SCH (21:39)
[2022-10-01] MEDS: DOCUSATE SODIUM 100 MG CAPSULE (FP) PO SCH (21:39)
[2022-10-01] MEDS: ATORVASTATIN CA 40 MG TABLET (FP) PO SCH (21:40)
[2022-10-01] MEDS: CHLORHEXIDINE GLUCONATE 4% CLEANSER FOR DECOLONIZATION TP SCH (21:40)
[2022-10-01] MEDS: FERROUS SO4 325 MG TABLET (FP) PO SCH (22:36)
[2022-10-02] MEDS: PIPERACILLIN/TAZOB 2.25 GM 2.25 GM in DEXTROSE 5%-WATER - 50 ML IVPB SCH ×3 (04:48→21:38)
[2022-10-02] MEDS: DOCUSATE SODIUM 100 MG CAPSULE (FP) PO SCH ×3 (05:17→21:38)
[2022-10-02] MEDS: HEPARIN NA (PORCINE) 5,000 UNITS/ML 1ML VIAL SQ SCH ×3 (05:18→21:38)
[2022-10-02] MEDS: LEVOTHYROXINE NA 25 MCG TABLET (FP) PO SCH (06:23)
[2022-10-02 07:12] LABS: BASO % 0.8 % (0-2.0); EOS % 2.7 % (0-4.5); HEMATOCRIT 32.2 % (35.4-49); HEMOGLOBIN 10.4 GM/dL (11.7-16.9); MCH 32.4 pg (25.7-33.7); MCHC 32.3 g/dl (32.0-35.9); MEAN CELL VOLUME 100.1 fl (80-96); MONO % 10.4 % (3.8-10.2); NEUT % 78.1 % (42.8-82.8); PLATELET COUNT 152 10^3/uL (134-434); RBC 3.22 M/mm3 (4.00-5.60); RDW 19.6 % (11.9-15.9)
[2022-10-02 07:36] LABS: ALBUMIN 2.5 g/dl (3.4-5.0); BLOOD UREA NITROGEN 30.7 mg/dL (7-18); MAGNESIUM 1.9 mg/dL (1.8-2.4)
[2022-10-02 07:37] LABS: CREATININE 3.8 mg/dL (0.55-1.3)
[2022-10-02 07:38] LABS: PHOSPHOROUS 6.6 mg/dL (2.5-4.9)
[2022-10-02 07:40] LABS: BILIRUBIN,TOTAL 1.2 mg/dL (0.2-1)
[2022-10-02] MEDS: FERROUS SO4 325 MG TABLET (FP) PO SCH ×2 (08:03→16:47)
[2022-10-02] MEDS: SEVELAMER CARBONATE 800 MG TAB (FP) PO SCH ×3 (08:03→16:47)
[2022-10-02] MEDS: PANTOPRAZOLE SODIUM 40 MG VIAL IVPUSH SCH (09:34)
[2022-10-02] MEDS: POLYETHYLENE GLYCOL (HEALTHYLAX) 3350 17 GM PACKET PO SCH ×2 (09:34→21:38)
[2022-10-02] MEDS: ASPIRIN COATED 81 MG TABLET.EC PO SCH (09:34)
[2022-10-02] MEDS: CLOPIDOGREL BISULFATE 75 MG TABLET (FP) PO SCH (09:34)
[2022-10-02] MEDS: TRIAMCINOLONE ACET 0.1% CREAM 15 GM TUBE TP SCH ×2 (09:36→21:40)
[2022-10-02] MEDS: MUPIROCIN 2% TOPICAL OINTMENT FOR DECOLONIZATION NS SCH ×2 (09:36→21:40)
[2022-10-02] MEDS: NOREPINEPHRINE 0.9 % NACL 8 MG/250 ML BAG IVPB SCH ×2 (14:16→17:00)
[2022-10-02] MEDS ORDERED: OXYMETAZOLINE 0.05% NASAL SOLUTION 15 ML BOTTLE NS ONE (14:39)
[2022-10-02] MEDS: MIDODRINE HCL 5 MG TABLET PO SCH (20:24)
[2022-10-02] MEDS ORDERED: VANCOMYCIN/WATER 2 GM/400 ML PREMIX BAG (RESTRICTED TO ID ONLY) IVPB ONE (21:00)
[2022-10-02] MEDS: ATORVASTATIN CA 40 MG TABLET (FP) PO SCH (21:38)
[2022-10-02] MEDS: INSULIN SLIDING SCALE (NOVOLOG) 1 VIAL SQ SCH (21:38)
[2022-10-02] MEDS: CHLORHEXIDINE GLUCONATE 4% CLEANSER FOR DECOLONIZATION TP SCH (21:39)
[2022-10-03] MEDS: PIPERACILLIN/TAZOB 2.25 GM 2.25 GM in DEXTROSE 5%-WATER - 50 ML IVPB SCH ×3 (05:29→22:00)
[2022-10-03] MEDS: DOCUSATE SODIUM 100 MG CAPSULE (FP) PO SCH ×3 (05:30→22:01)
[2022-10-03] MEDS: HEPARIN NA (PORCINE) 5,000 UNITS/ML 1ML VIAL SQ SCH ×3 (05:30→22:00)
[2022-10-03] MEDS: INSULIN SLIDING SCALE (NOVOLOG) 1 VIAL SQ SCH ×4 (06:22→22:55)
[2022-10-03] MEDS: LEVOTHYROXINE NA 25 MCG TABLET (FP) PO SCH (06:23)
[2022-10-03 07:02] LABS: BASO % 0.4 % (0-2.0); EOS % 2.4 % (0-4.5); HEMATOCRIT 30.3 % (35.4-49); HEMOGLOBIN 9.8 GM/dL (11.7-16.9); LYMPH % 10.1 % (8-40); MCH 32.7 pg (25.7-33.7); MCHC 32.3 g/dl (32.0-35.9); MEAN CELL VOLUME 101.2 fl (80-96); MEAN PLT VOLUME 8.7 fl (7.5-11.1); MONO % 11.5 % (3.8-10.2); NEUT % 75.6 % (42.8-82.8); PLATELET COUNT 142 10^3/uL (134-434); RDW 18.9 % (11.9-15.9); WHITE BLOOD COUNT 7.8 K/mm3 (4.0-10.0)
[2022-10-03 07:07] LABS: INR 1.65 (0.83-1.09); PROTHROMBIN TIME (PATIENT) 19.1 SEC (9.7-13.0)
[2022-10-03 07:25] LABS: ALBUMIN 2.3 g/dl (3.4-5.0); BLOOD UREA NITROGEN 27.2 mg/dL (7-18); CALCIUM 8.8 mg/dL (8.5-10.1); MAGNESIUM 1.9 mg/dL (1.8-2.4)
[2022-10-03 07:27] LABS: BILIRUBIN,DIRECT 0.5 mg/dL (0.0-0.2); CREATININE 3.3 mg/dL (0.55-1.3); PHOSPHOROUS 5.3 mg/dL (2.5-4.9)
[2022-10-03 07:29] LABS: BILIRUBIN,TOTAL 0.8 mg/dL (0.2-1); TOT PROT 6.6 g/dl (6.4-8.2)
[2022-10-03] MEDS: SEVELAMER CARBONATE 800 MG TAB (FP) PO SCH ×3 (08:02→18:11)
[2022-10-03] MEDS: FERROUS SO4 325 MG TABLET (FP) PO SCH ×2 (08:02→18:11)
[2022-10-03] MEDS: CLOPIDOGREL BISULFATE 75 MG TABLET (FP) PO SCH (09:39)
[2022-10-03] MEDS: POLYETHYLENE GLYCOL (HEALTHYLAX) 3350 17 GM PACKET PO SCH ×2 (09:39→22:00)
[2022-10-03] MEDS: ASPIRIN COATED 81 MG TABLET.EC PO SCH (09:39)
[2022-10-03] MEDS: PANTOPRAZOLE SODIUM 40 MG VIAL IVPUSH SCH (09:40)
[2022-10-03] MEDS: MIDODRINE HCL 5 MG TABLET PO SCH ×3 (09:40→18:11)
[2022-10-03] MEDS: TRIAMCINOLONE ACET 0.1% CREAM 15 GM TUBE TP SCH ×2 (09:40→22:01)
[2022-10-03] MEDS: MUPIROCIN 2% TOPICAL OINTMENT FOR DECOLONIZATION NS SCH ×2 (09:40→22:01)
[2022-10-03] MEDS: NOREPINEPHRINE 0.9 % NACL 8 MG/250 ML BAG IVPB SCH (18:10)
[2022-10-03] MEDS ORDERED: ONDANSETRON 4 MG/2 ML VIAL IVPUSH PRN (20:03)
[2022-10-03] MEDS: CHLORHEXIDINE GLUCONATE 4% CLEANSER FOR DECOLONIZATION TP SCH (22:01)
[2022-10-03] MEDS: ATORVASTATIN CA 40 MG TABLET (FP) PO SCH (22:01)
[2022-10-04] MEDS: PIPERACILLIN/TAZOB 2.25 GM 2.25 GM in DEXTROSE 5%-WATER - 50 ML IVPB SCH (05:25)
[2022-10-04] MEDS: DOCUSATE SODIUM 100 MG CAPSULE (FP) PO SCH ×3 (05:26→21:27)
[2022-10-04] MEDS: HEPARIN NA (PORCINE) 5,000 UNITS/ML 1ML VIAL SQ SCH ×3 (05:26→21:28)
[2022-10-04] MEDS: LEVOTHYROXINE NA 25 MCG TABLET (FP) PO SCH (06:37)
[2022-10-04] MEDS: INSULIN SLIDING SCALE (NOVOLOG) 1 VIAL SQ SCH ×4 (06:39→21:41)
[2022-10-04 07:38] LABS: BASO % 0.5 % (0-2.0); EOS % 3.1 % (0-4.5); HEMATOCRIT 28.4 % (35.4-49); HEMOGLOBIN 9.4 GM/dL (11.7-16.9); LYMPH % 11.3 % (8-40); MCH 32.9 pg (25.7-33.7); MCHC 32.9 g/dl (32.0-35.9); MEAN CELL VOLUME 99.9 fl (80-96); MEAN PLT VOLUME 9.3 fl (7.5-11.1); MONO % 11.7 % (3.8-10.2); NEUT % 73.4 % (42.8-82.8); PLATELET COUNT 138 10^3/uL (134-434); RBC 2.85 M/mm3 (4.00-5.60); RDW 18.7 % (11.9-15.9); WHITE BLOOD COUNT 6.6 K/mm3 (4.0-10.0)
[2022-10-04 07:54] LABS: BLOOD UREA NITROGEN 36.9 mg/dL (7-18); CALCIUM 8.4 mg/dL (8.5-10.1); MAGNESIUM 1.8 mg/dL (1.8-2.4)
[2022-10-04 07:55] LABS: ALBUMIN 2.1 g/dl (3.4-5.0)
[2022-10-04] MEDS ORDERED: EPOETIN ALFA-EPBX 4,000 UNIT/ML VIAL IVPUSH ONE (08:00)
[2022-10-04 08:02] LABS: BILIRUBIN,TOTAL 0.8 mg/dL (0.2-1); CREATININE 4.2 mg/dL (0.55-1.3); TOT PROT 6.4 g/dl (6.4-8.2)
[2022-10-04] MEDS: NOREPINEPHRINE 0.9 % NACL 8 MG/250 ML BAG IVPB SCH ×4 (08:06→21:38)
[2022-10-04] MEDS: SEVELAMER CARBONATE 800 MG TAB (FP) PO SCH ×3 (12:06→17:43)
[2022-10-04] MEDS: FERROUS SO4 325 MG TABLET (FP) PO SCH ×2 (12:06→17:43)
[2022-10-04] MEDS: ASPIRIN COATED 81 MG TABLET.EC PO SCH (12:07)
[2022-10-04] MEDS: POLYETHYLENE GLYCOL (HEALTHYLAX) 3350 17 GM PACKET PO SCH ×2 (12:08→21:27)
[2022-10-04] MEDS: CLOPIDOGREL BISULFATE 75 MG TABLET (FP) PO SCH (12:08)
[2022-10-04] MEDS: PANTOPRAZOLE SODIUM 40 MG VIAL IVPUSH SCH (12:08)
[2022-10-04] MEDS: MIDODRINE HCL 5 MG TABLET PO SCH ×3 (12:08→17:43)
[2022-10-04] MEDS: MUPIROCIN 2% TOPICAL OINTMENT FOR DECOLONIZATION NS SCH ×2 (12:09→21:29)
[2022-10-04] MEDS: TRIAMCINOLONE ACET 0.1% CREAM 15 GM TUBE TP SCH ×2 (13:40→21:28)
[2022-10-04] MEDS: ATORVASTATIN CA 40 MG TABLET (FP) PO SCH (21:28)
[2022-10-04] MEDS: CHLORHEXIDINE GLUCONATE 4% CLEANSER FOR DECOLONIZATION TP SCH (21:29)
[2022-10-05] MEDS: DOCUSATE SODIUM 100 MG CAPSULE (FP) PO SCH ×3 (06:00→21:50)
[2022-10-05] MEDS: HEPARIN NA (PORCINE) 5,000 UNITS/ML 1ML VIAL SQ SCH ×3 (06:00→21:50)
[2022-10-05] MEDS: LEVOTHYROXINE NA 25 MCG TABLET (FP) PO SCH (06:01)
[2022-10-05] MEDS: INSULIN SLIDING SCALE (NOVOLOG) 1 VIAL SQ SCH ×4 (06:28→22:04)
[2022-10-05 07:51] LABS: HEMATOCRIT 29.9 % (35.4-49); HEMOGLOBIN 9.9 GM/dL (11.7-16.9); MEAN PLT VOLUME 9.1 fl (7.5-11.1); PLATELET COUNT 159 10^3/uL (134-434); RDW 19.2 % (11.9-15.9); WHITE BLOOD COUNT 7.4 K/mm3 (4.0-10.0)
[2022-10-05 08:07] LABS: ALBUMIN 2.3 g/dl (3.4-5.0); BLOOD UREA NITROGEN 27.3 mg/dL (7-18); CALCIUM 8.9 mg/dL (8.5-10.1); MAGNESIUM 1.9 mg/dL (1.8-2.4)
[2022-10-05 08:10] LABS: CREATININE 3.6 mg/dL (0.55-1.3); PHOSPHOROUS 5.6 mg/dL (2.5-4.9)
[2022-10-05 08:12] LABS: BILIRUBIN,TOTAL 0.8 mg/dL (0.2-1); TOT PROT 6.7 g/dl (6.4-8.2)
[2022-10-05] MEDS: PANTOPRAZOLE SODIUM 40 MG VIAL IVPUSH SCH (09:19)
[2022-10-05] MEDS: CLOPIDOGREL BISULFATE 75 MG TABLET (FP) PO SCH (09:19)
[2022-10-05] MEDS: SEVELAMER CARBONATE 800 MG TAB (FP) PO SCH ×3 (09:19→18:33)
[2022-10-05] MEDS: FERROUS SO4 325 MG TABLET (FP) PO SCH ×2 (09:19→18:34)
[2022-10-05] MEDS: ASPIRIN COATED 81 MG TABLET.EC PO SCH (09:19)
[2022-10-05] MEDS: POLYETHYLENE GLYCOL (HEALTHYLAX) 3350 17 GM PACKET PO SCH ×2 (09:19→21:50)
[2022-10-05] MEDS: MIDODRINE HCL 5 MG TABLET PO SCH ×3 (09:19→18:34)
[2022-10-05] MEDS ORDERED: FENTANYL NS IVPB 500 MCG/100 ML BAG IVPB ONE (09:41)
[2022-10-05 10:10] LABS: ANISOCYTOSIS 1+; MACROCYTOSIS 1+
[2022-10-05] MEDS: MUPIROCIN 2% TOPICAL OINTMENT FOR DECOLONIZATION NS SCH ×2 (13:45→21:54)
[2022-10-05] MEDS: TRIAMCINOLONE ACET 0.1% CREAM 15 GM TUBE TP SCH ×2 (13:45→21:53)
[2022-10-05] MEDS: VITAMIN B COMP W-C 1 EA TABLET (NEPHRO-VITE) PO SCH (14:50)
[2022-10-05] MEDS: NOREPINEPHRINE 0.9 % NACL 8 MG/250 ML BAG IVPB SCH (17:01)
[2022-10-05] MEDS: ATORVASTATIN CA 40 MG TABLET (FP) PO SCH (21:50)
[2022-10-05] MEDS: CHLORHEXIDINE GLUCONATE 4% CLEANSER FOR DECOLONIZATION TP SCH (21:50)
[2022-10-05] MEDS ORDERED: SODIUM CHLORIDE 250 ML IV PRN (22:08)
[2022-10-06] MEDS: DOCUSATE SODIUM 100 MG CAPSULE (FP) PO SCH ×3 (05:25→20:59)
[2022-10-06] MEDS: HEPARIN NA (PORCINE) 5,000 UNITS/ML 1ML VIAL SQ SCH ×3 (05:25→20:59)
[2022-10-06] MEDS: LEVOTHYROXINE NA 25 MCG TABLET (FP) PO SCH (06:05)
[2022-10-06] MEDS: INSULIN SLIDING SCALE (NOVOLOG) 1 VIAL SQ SCH ×4 (07:00→20:59)
[2022-10-06 07:29] LABS: BASO % 0.6 % (0-2.0); EOS % 2.3 % (0-4.5); HEMATOCRIT 31.5 % (35.4-49); HEMOGLOBIN 10.1 GM/dL (11.7-16.9); LYMPH % 14.8 % (8-40); MCH 32.3 pg (25.7-33.7); MCHC 32.1 g/dl (32.0-35.9); MEAN CELL VOLUME 100.7 fl (80-96); NEUT % 67.3 % (42.8-82.8); PLATELET COUNT 174 10^3/uL (134-434); RBC 3.13 M/mm3 (4.00-5.60); RDW 19.5 % (11.9-15.9); WHITE BLOOD COUNT 7.3 K/mm3 (4.0-10.0)
[2022-10-06 07:47] LABS: CALCIUM 9.3 mg/dL (8.5-10.1)
[2022-10-06 07:48] LABS: ALBUMIN 2.3 g/dl (3.4-5.0); BLOOD UREA NITROGEN 26.2 mg/dL (7-18); MAGNESIUM 1.9 mg/dL (1.8-2.4)
[2022-10-06 07:51] LABS: CREATININE 3.5 mg/dL (0.55-1.3); PHOSPHOROUS 5.1 mg/dL (2.5-4.9)
[2022-10-06 07:52] LABS: BILIRUBIN,TOTAL 1.1 mg/dL (0.2-1); TOT PROT 6.9 g/dl (6.4-8.2)
[2022-10-06] MEDS ORDERED: EPOETIN ALFA-EPBX 4,000 UNIT/ML VIAL IVPUSH ONE (08:15)
[2022-10-06] MEDS: SEVELAMER CARBONATE 800 MG TAB (FP) PO SCH ×3 (09:31→17:14)
[2022-10-06] MEDS: MIDODRINE HCL 5 MG TABLET PO SCH ×2 (09:31→13:15)
[2022-10-06] MEDS: PANTOPRAZOLE SODIUM 40 MG VIAL IVPUSH SCH (09:32)
[2022-10-06] MEDS: CLOPIDOGREL BISULFATE 75 MG TABLET (FP) PO SCH (09:32)
[2022-10-06] MEDS: FERROUS SO4 325 MG TABLET (FP) PO SCH ×2 (09:32→18:31)
[2022-10-06] MEDS: VITAMIN B COMP W-C 1 EA TABLET (NEPHRO-VITE) PO SCH (09:32)
[2022-10-06] MEDS: ASPIRIN COATED 81 MG TABLET.EC PO SCH (09:32)
[2022-10-06] MEDS: POLYETHYLENE GLYCOL (HEALTHYLAX) 3350 17 GM PACKET PO SCH ×2 (09:32→20:59)
[2022-10-06] MEDS ORDERED: INSULIN (NOVOLOG) ASPART 100 UNITS/ML 10ML VIAL ONE (10:07)
[2022-10-06] MEDS: MUPIROCIN 2% TOPICAL OINTMENT FOR DECOLONIZATION NS SCH (12:00)
[2022-10-06] MEDS: TRIAMCINOLONE ACET 0.1% CREAM 15 GM TUBE TP SCH ×2 (16:58→20:59)
[2022-10-06] MEDS: NOREPINEPHRINE 0.9 % NACL 8 MG/250 ML BAG IVPB SCH (17:15)
[2022-10-06] MEDS: CHLORHEXIDINE GLUCONATE 4% CLEANSER FOR DECOLONIZATION TP SCH (20:59)
[2022-10-06] MEDS: ATORVASTATIN CA 40 MG TABLET (FP) PO SCH (20:59)
[2022-10-07] MEDS: DOCUSATE SODIUM 100 MG CAPSULE (FP) PO SCH ×4 (05:56→21:40)
[2022-10-07] MEDS: HEPARIN NA (PORCINE) 5,000 UNITS/ML 1ML VIAL SQ SCH ×3 (05:57→22:00)
[2022-10-07] MEDS: LEVOTHYROXINE NA 25 MCG TABLET (FP) PO SCH (05:59)
[2022-10-07] MEDS: INSULIN SLIDING SCALE (NOVOLOG) 1 VIAL SQ SCH ×4 (06:14→21:42)
[2022-10-07 07:46] LABS: BASO % 0.6 % (0-2.0); EOS % 1.4 % (0-4.5); HEMATOCRIT 31.1 % (35.4-49); HEMOGLOBIN 9.9 GM/dL (11.7-16.9); MCH 31.8 pg (25.7-33.7); MCHC 31.8 g/dl (32.0-35.9); MEAN CELL VOLUME 100.1 fl (80-96); MEAN PLT VOLUME 8.8 fl (7.5-11.1); MONO % 11.8 % (3.8-10.2); NEUT % 72.2 % (42.8-82.8); PLATELET COUNT 157 10^3/uL (134-434); RDW 18.9 % (11.9-15.9); WHITE BLOOD COUNT 6.4 K/mm3 (4.0-10.0)
[2022-10-07 08:18] LABS: CALCIUM 8.9 mg/dL (8.5-10.1)
[2022-10-07 08:19] LABS: ALBUMIN 2.2 g/dl (3.4-5.0); MAGNESIUM 1.9 mg/dL (1.8-2.4)
[2022-10-07 08:21] LABS: PHOSPHOROUS 4.8 mg/dL (2.5-4.9)
[2022-10-07 08:22] LABS: CREATININE 3.6 mg/dL (0.55-1.3)
[2022-10-07 08:23] LABS: TOT PROT 6.7 g/dl (6.4-8.2)
[2022-10-07] MEDS: FERROUS SO4 325 MG TABLET (FP) PO SCH ×2 (08:43→17:52)
[2022-10-07] MEDS: SEVELAMER CARBONATE 800 MG TAB (FP) PO SCH ×3 (08:43→17:52)
[2022-10-07] MEDS: CLOPIDOGREL BISULFATE 75 MG TABLET (FP) PO SCH (09:02)
[2022-10-07] MEDS: PANTOPRAZOLE SODIUM 40 MG VIAL IVPUSH SCH (09:02)
[2022-10-07] MEDS: MIDODRINE HCL 5 MG TABLET PO SCH ×3 (09:02→17:52)
[2022-10-07] MEDS: VITAMIN B COMP W-C 1 EA TABLET (NEPHRO-VITE) PO SCH (09:03)
[2022-10-07] MEDS: ASPIRIN COATED 81 MG TABLET.EC PO SCH (09:03)
[2022-10-07] MEDS: POLYETHYLENE GLYCOL (HEALTHYLAX) 3350 17 GM PACKET PO SCH ×2 (09:32→21:40)
[2022-10-07] MEDS: TRIAMCINOLONE ACET 0.1% CREAM 15 GM TUBE TP SCH (10:43)
[2022-10-07] MEDS ORDERED: ALBUTEROL SO4 HFA INHALER IH PRN (15:16)
[2022-10-07] MEDS ORDERED: ONDANSETRON 4 MG/2 ML VIAL IVPUSH PRN (15:16)
[2022-10-07] MEDS ORDERED: CLOPIDOGREL BISULFATE 300 MG TABLET PO ONE (15:16)
[2022-10-07 16:44] VITALS: BMI 43.7
[2022-10-07] MEDS ORDERED: INSULIN (NOVOLOG) ASPART 100 UNITS/ML 10ML VIAL ONE (17:48)
[2022-10-07] MEDS: ATORVASTATIN CA 40 MG TABLET (FP) PO SCH (21:41)
[2022-10-07] MEDS ORDERED: CHLORHEXIDINE GLUCONATE 4% CLEANSER FOR DECOLONIZATION TP SCH (22:00)
[2022-10-08] MEDS: HEPARIN NA (PORCINE) 5,000 UNITS/ML 1ML VIAL SQ SCH ×2 (05:58→14:27)
[2022-10-08] MEDS: DOCUSATE SODIUM 100 MG CAPSULE (FP) PO SCH ×3 (06:00→22:37)
[2022-10-08] MEDS: LEVOTHYROXINE NA 25 MCG TABLET (FP) PO SCH (06:03)
[2022-10-08] MEDS: TRIAMCINOLONE ACET 0.1% CREAM 15 GM TUBE TP SCH ×2 (06:18→11:04)
[2022-10-08] MEDS ORDERED: INSULIN (NOVOLOG) ASPART 100 UNITS/ML 10ML VIAL ONE (06:23)
[2022-10-08] MEDS: INSULIN SLIDING SCALE (NOVOLOG) 1 VIAL SQ SCH ×4 (06:25→22:57)
[2022-10-08] MEDS: SEVELAMER CARBONATE 800 MG TAB (FP) PO SCH ×3 (08:51→17:06)
[2022-10-08] MEDS: FERROUS SO4 325 MG TABLET (FP) PO SCH ×2 (08:51→17:06)
[2022-10-08] MEDS: MIDODRINE HCL 5 MG TABLET PO SCH ×3 (09:28→17:06)
[2022-10-08] MEDS ORDERED: PANTOPRAZOLE SODIUM 40 MG VIAL IVPUSH SCH (10:00)
[2022-10-08] MEDS: ASPIRIN COATED 81 MG TABLET.EC PO SCH ×2 (11:05→14:28)
[2022-10-08] MEDS: VITAMIN B COMP W-C 1 EA TABLET (NEPHRO-VITE) PO SCH (11:05)
[2022-10-08] MEDS: CLOPIDOGREL BISULFATE 75 MG TABLET (FP) PO SCH ×2 (11:05→14:28)
[2022-10-08] MEDS: POLYETHYLENE GLYCOL (HEALTHYLAX) 3350 17 GM PACKET PO SCH ×2 (11:05→22:37)
[2022-10-08] MEDS: PANTOPRAZOLE 40 MG TABLET PO SCH (14:27)
[2022-10-08] MEDS ORDERED: SODIUM CHLORIDE 250 ML IV PRN (16:37)
[2022-10-08] MEDS: ATORVASTATIN CA 40 MG TABLET (FP) PO SCH (22:37)
[2022-10-09] MEDS: HEPARIN NA (PORCINE) 5,000 UNITS/ML 1ML VIAL SQ SCH ×4 (06:00→22:37)
[2022-10-09] MEDS: LEVOTHYROXINE NA 25 MCG TABLET (FP) PO SCH (06:11)
[2022-10-09] MEDS: INSULIN SLIDING SCALE (NOVOLOG) 1 VIAL SQ SCH ×4 (06:11→22:34)
[2022-10-09] MEDS: DOCUSATE SODIUM 100 MG CAPSULE (FP) PO SCH ×3 (06:12→22:36)
[2022-10-09] MEDS: SEVELAMER CARBONATE 800 MG TAB (FP) PO SCH ×3 (08:56→17:21)
[2022-10-09] MEDS: FERROUS SO4 325 MG TABLET (FP) PO SCH ×2 (08:56→17:20)
[2022-10-09] MEDS: ASPIRIN COATED 81 MG TABLET.EC PO SCH (09:04)
[2022-10-09] MEDS: PANTOPRAZOLE 40 MG TABLET PO SCH (09:04)
[2022-10-09] MEDS: CLOPIDOGREL BISULFATE 75 MG TABLET (FP) PO SCH (09:04)
[2022-10-09] MEDS: VITAMIN B COMP W-C 1 EA TABLET (NEPHRO-VITE) PO SCH (09:04)
[2022-10-09] MEDS: MIDODRINE HCL 5 MG TABLET PO SCH ×3 (09:05→17:21)
[2022-10-09] MEDS: POLYETHYLENE GLYCOL (HEALTHYLAX) 3350 17 GM PACKET PO SCH ×3 (09:06→22:35)
[2022-10-09] MEDS ORDERED: EPOETIN ALFA-EPBX 10,000 UNIT/ML VIAL SQ ONE (10:36)
[2022-10-09] MEDS ORDERED: SODIUM CHLORIDE 250 ML IV PRN (10:36)
[2022-10-09] MEDS ORDERED: ALBUMIN HUMAN 25% 12.5 GM/50 ML VIAL IVPB SCH (10:45)
[2022-10-09 14:52] LABS: HEMATOCRIT 30.7 % (35.4-49); HEMOGLOBIN 9.9 GM/dL (11.7-16.9); MCH 32.2 pg (25.7-33.7); MCHC 32.3 g/dl (32.0-35.9); MEAN CELL VOLUME 99.8 fl (80-96); MEAN PLT VOLUME 8.7 fl (7.5-11.1); PLATELET COUNT 161 10^3/uL (134-434); RBC 3.08 M/mm3 (4.00-5.60); RDW 18.6 % (11.9-15.9); WHITE BLOOD COUNT 7.4 K/mm3 (4.0-10.0)
[2022-10-09 15:17] LABS: CALCIUM 9.1 mg/dL (8.5-10.1)
[2022-10-09 15:18] LABS: BLOOD UREA NITROGEN 30.2 mg/dL (7-18)
[2022-10-09 15:21] LABS: CREATININE 3.5 mg/dL (0.55-1.3)
[2022-10-09] MEDS: TRIAMCINOLONE ACET 0.1% CREAM 15 GM TUBE TP SCH ×2 (17:27→22:37)
[2022-10-09] MEDS: ATORVASTATIN CA 40 MG TABLET (FP) PO SCH (22:35)
[2022-10-09 23:14] VITALS: BP 94/44; PULSE 102; RESP 20; TEMP 97.7
== END 2022-10-10 01:15 | disposition short-term general hospital (02) | DRG 200 ==
LOC: JER 08:51 → JERBED 12:27 → JICU 13:52 → J4W 10-07 15:38
PROVIDERS: ADMIT Internal Medicine Pulmonary Disease; ATTEND Internal Medicine
PROC: 05HM33Z Insertion of Infusion Device into Right Internal Jugular Vein, Percutaneous Approach (ICD-10-PCS; principal; 2022-10-01)
PROC: B543ZZA Ultrasonography of Right Jugular Veins, Guidance (ICD-10-PCS; 2022-10-01)
PROC: 5A1D70Z Performance of Urinary Filtration, Intermittent, Less than 6 Hours Per Day (ICD-10-PCS; 2022-10-09)
DX: I34.2 Nonrheumatic mitral (valve) stenosis (principal); J96.02 Acute respiratory failure with hypercapnia; R57.0 Cardiogenic shock; G92.8 Other toxic encephalopathy; I31.39 Other pericardial effusion (noninflammatory); I13.2 Hypertensive heart and chronic kidney disease with heart failure and with stage 5 chronic kidney disease, or end stage renal disease; I50.32 Chronic diastolic (congestive) heart failure; N18.6 End stage renal disease; Z68.41 Body mass index [BMI] 40.0-44.9, adult; I25.10 Atherosclerotic heart disease of native coronary artery without angina pectoris; E03.9 Hypothyroidism, unspecified; E66.01 Morbid (severe) obesity due to excess calories; Z95.5 Presence of coronary angioplasty implant and graft; Z99.2 Dependence on renal dialysis; E87.70 Fluid overload, unspecified
CPT/HCPCS: 0241U-QW; 36415; 36600; 71045-TC-FY; 80048; 80053; 80076; 82533; 82550; 82553; 82803; 82962; 83605; 83735; 83880; 84100; 84439; 84443; 84479; 84484; 85025; 85027; 85610; 85730; 86803; 87040; 87340; 93005; 93010; 93306-TC; 94660; 99291; C9803-CS; G0480; J1644; P9047; Q5106; U0003; U0005